=== PATIENT | female | born 1950 | race Caucasian/White ===

== ENCOUNTER 2016-10-08 21:47 | Emergency (ER) | payer BC ==
--- NOTE | 2016-10-08 22:18 | ED ---
Fall HPI - General Chief Complaint: Fall Stated Complaint: fall facial injury Time Seen by Provider: 10/08/16 21:52 Source: patient, EMS Mode of arrival: EMS - History of Present Illness Initial Comments: This patient is a 66-year-old woman who presents to be evaluated after she had a fall. The patient states that she was walking from the bathroom in her home, when she stepped on something and tripped. She states that she was not able to catch herself and she fell striking the left side of her face. She did not have loss of consciousness. She is complaining of headache and pain to the nose area. She has a little bit of pain across the back of the neck. She states that her left arm feels funny but she states that she does not have good sensation there since her stroke. 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 Fall Witnessed: yes, by family Place Fall Occurred: home Loss of Consciousness: none Prolonged Down Time?: no Location: face Location - Extremities: Left: Arm Severity: moderate Quality: dull Context: tripped/slipped Associated Symptoms: headache - Related Data Home Medications Medication Instructions Recorded Confirmed Atorvastatin Calcium [Lipitor] 40 mg PO QAM 09/06/15 10/08/16 Digoxin [Digox] 125 mcg PO DAILY 09/06/15 10/08/16 Morphine Sulfate ER [Ms Contin] 30 mg PO Q12HR 09/06/15 10/08/16 Sertraline HCl 100 mg PO DAILY 09/06/15 10/08/16 carBAMazepine [carBAMazepine XR] 200 mg PO BID 09/06/15 10/08/16 Gabapentin 600 mg PO BID 09/13/15 10/08/16 Warfarin [Coumadin] 5 mg PO HS 01/12/16 10/08/16 Aspirin EC [Ecotrin Low Dose] 81 mg PO DAILY 10/08/16 10/08/16 Calcium Carb-Vit D 500Mg-200Un 1 tab PO DAILY 10/08/16 10/08/16 [Oscal 500+D] Cholecalciferol (Vitamin D3) 2,000 unit PO DAILY 10/08/16 10/08/16 [Vitamin D3] Potassium 99 mg PO DAILY 10/08/16 10/08/16 levETIRAcetam [Keppra] 500 mg PO Q12HR 10/08/16 10/08/16 Previous Rx's Medication Instructions Recorded Bumetanide [BUMEX] 1 mg PO BID@0900,1600 #60 tab 09/20/15 Metoprolol Tartrate [Lopressor] 25 mg PO BID #60 tab 09/20/15 Spironolactone [Aldactone] 25 mg PO DAILY tab 09/20/15 Allergies Allergy/AdvReac Type Severity Reaction Status Date / Time lorazepam [From Ativan] AdvReac GIVES THE Verified 10/08/16 22:12 OPPOSITE EFFECT Review of Systems ROS Statement: Those systems with pertinent positive or pertinent negative responses have been documented in the HPI. ROS Other: All systems not noted in ROS Statement are negative. Constitutional: Denies: fever Eyes: Denies: vision change Respiratory: Denies: cough, dyspnea Cardiovascular: Denies: chest pain, syncope Gastrointestinal: Denies: abdominal pain, vomiting, diarrhea Musculoskeletal: Denies: back pain Skin: Denies: rash Neurological: Reports: headache. Denies: weakness, numbness, paresthesias, confusion Past Medical History Past Medical History: Atrial Fibrillation, Coronary Artery Disease (CAD), CVA/ TIA, Hyperlipidemia, Pneumonia, Seizure Disorder Additional Past Medical History / Comment(s): FALLS, CONCUSSION, STROKE AFFECTED LT SIDE UNABLE TO USE LT ARM AND STATED FOOT DRAGS WHEN SHES TIRED- ONLY ABLE TO WALK SHORT DISTANCES USES PYRAMID CANE.VERTIGO,BRONCHITIS RECENTLY ON ABX FOR IT.STATED HAD A PNE VACCINE LESS THEN 5 YEARS AGO.NOT SURE OF DATE. 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 General Exam Limitations: no limitations General appearance: alert, in no apparent distress Head exam: Present: atraumatic, normocephalic, normal inspection Eye exam: Present: normal appearance. Absent: scleral icterus, conjunctival injection ENT exam: Present: normal oropharynx Neck exam: Present: normal inspection, full ROM Respiratory exam: Present: normal lung sounds bilaterally. Absent: respiratory distress, wheezes, rales, rhonchi, stridor Cardiovascular Exam: Present: regular rate, normal rhythm, normal heart sounds. Absent: systolic murmur, diastolic murmur, rubs, gallop GI/Abdominal exam: Present: soft. Absent: distended, tenderness, guarding, rebound, mass Extremities exam: Present: normal inspection, normal capillary refill. Absent: pedal edema, calf tenderness Back exam: Present: normal inspection. Absent: CVA tenderness (R), CVA tenderness (L) Neurological exam: Present: alert, oriented X3, motor sensory deficit (Patient has left upper extremity and left lower extremity weakness that she states is consistent with her old stroke.) Skin exam: Present: warm, dry, intact, normal color. Absent: rash, cyanosis, diaphoretic, erythema, petechiae, pallor, mottled Course Vital Signs 10/08/16 10/09/16 21:48 03:08 Temperature 98.0 F 97.3 F L Pulse Rate 65 68 Respiratory 16 18 Rate Blood Pressure 163/73 145/78 O2 Sat by Pulse 96 98 Oximetry Medical Decision Making - Medical Decision Making Patient is 66-year-old woman who had a fall with concern about head injury given her Coumadin use. The studies are negative, however she does have the chronic left humerus fracture. - Lab Data Result diagrams: 10/09/16 00:10 10/09/16 00:10 Lab Results 10/09/16 10/09/16 10/09/16 Range/Units 00:10 00:10 00:10 WBC 6.0 (3.8-10.6) k/uL RBC 3.75 L (3.80-5.40) m/uL Hgb 12.7 (11.4-16.0) gm/dL Hct 39.6 (34.0-46.0) % MCV 105.8 H (80.0-100.0) fL MCH 33.8 (25.0-35.0) pg MCHC 32.0 (31.0-37.0) g/dL RDW 14.0 (11.5-15.5) % Plt Count 116 L (150-450) k/uL Neutrophils % 77 % Lymphocytes % 12 % Monocytes % 8 % Eosinophils % 1 % Basophils % 0 % Neutrophils # 4.6 (1.3-7.7) k/uL Lymphocytes # 0.7 L (1.0-4.8) k/uL Monocytes # 0.5 (0-1.0) k/uL Eosinophils # 0.1 (0-0.7) k/uL Basophils # 0.0 (0-0.2) k/uL Macrocytosis Moderate PT 20.6 H (9.0-12.0) sec INR 2.1 H (<1.2) APTT 27.8 (22.0-30.0) sec Sodium 141 (137-145) mmol/L Potassium 3.8 (3.5-5.1) mmol/L Chloride 103 (98-107) mmol/L Carbon Dioxide 29 (22-30) mmol/L Anion Gap 9 mmol/L BUN 13 (7-17) mg/dL Creatinine 0.80 (0.52-1.04) mg/dL Est GFR (MDRD) Af Amer >60 (>60 ml/min/1.73 sqM) Est GFR (MDRD) Non-Af >60 (>60 ml/min/1.73 sqM) Glucose 111 H (74-99) mg/dL Calcium 8.7 (8.4-10.2) mg/dL Troponin I (0.000-0.034) ng/mL Digoxin 0.7 ng/mL 10/09/16 Range/Units 00:10 WBC (3.8-10.6) k/uL RBC (3.80-5.40) m/uL Hgb (11.4-16.0) gm/dL Hct (34.0-46.0) % MCV (80.0-100.0) fL MCH (25.0-35.0) pg MCHC (31.0-37.0) g/dL RDW (11.5-15.5) % Plt Count (150-450) k/uL Neutrophils % % Lymphocytes % % Monocytes % % Eosinophils % % Basophils % % Neutrophils # (1.3-7.7) k/uL Lymphocytes # (1.0-4.8) k/uL Monocytes # (0-1.0) k/uL Eosinophils # (0-0.7) k/uL Basophils # (0-0.2) k/uL Macrocytosis PT (9.0-12.0) sec INR (<1.2) APTT (22.0-30.0) sec Sodium (137-145) mmol/L Potassium (3.5-5.1) mmol/L Chloride (98-107) mmol/L Carbon Dioxide (22-30) mmol/L Anion Gap mmol/L BUN (7-17) mg/dL Creatinine (0.52-1.04) mg/dL Est GFR (MDRD) Af Amer (>60 ml/min/1.73 sqM) Est GFR (MDRD) Non-Af (>60 ml/min/1.73 sqM) Glucose (74-99) mg/dL Calcium (8.4-10.2) mg/dL Troponin I <0.012 (0.000-0.034) ng/mL Digoxin ng/mL - EKG Data -: EKG Interpreted by Ri EKG shows normal: axis (Normal), intervals (Normal), QRS complexes (There is an incomplete right bundle branch block) Rate: normal (Rate approximate 65 bpm) Interpretation: nonspecific ST-T wave changes, other (The underlying rhythm appears to be atrial fibrillation at a rate of approximate 65 bpm.) Disposition Clinical Impression: Fall, Head injury Disposition: HOME SELF-CARE Condition: Fair Instructions: Fall Prevention for Older Adults (ED), Head Injury (ED) Referrals: Melody Arce DO [Primary Care Provider] - 1-2 days
[2016-10-08] MEDS ORDERED: HYDROcodone/APAP 10-325MG 1 EACH TAB PO ONE (23:13)
--- NOTE | 2016-10-08 23:26 | CT ---
EXAM: CT Maxillofacial Without Intravenous Contrast CLINICAL HISTORY: Reason: trauma TECHNIQUE: Axial computed tomography images of the face without intravenous contrast. DLP is 563.00 mGy-cm. This CT exam was performed using one or more of the following dose reduction techniques: automated exposure control, adjustment of the mA and/or kV according to patient size, and/or use of iterative reconstruction technique. COMPARISON: No relevant prior studies available. FINDINGS: Bones/joints: Subcutaneous bruising seen over the left zygoma. No acute fracture. Soft tissues: Unremarkable. Orbits: Unremarkable. Sinuses: Unremarkable. No air-fluid levels. IMPRESSION: No evidence of fracture.
--- NOTE | 2016-10-08 23:32 | CT ---
EXAM: CT Head Without Intravenous Contrast CLINICAL HISTORY: Reason: trauma TECHNIQUE: Axial computed tomography images of the head/brain without intravenous contrast. DLP is 36.00 mGy-cm. This CT exam was performed using one or more of the following dose reduction techniques: automated exposure control, adjustment of the mA and/or kV according to patient size, and/or use of iterative reconstruction technique. COMPARISON: No relevant prior studies available. FINDINGS: Brain: Focal hypoattenuation in the right basal ganglia relating to old lacunar infarct. No hemorrhage. No significant white matter disease. No edema. Ventricles: Unremarkable. No ventriculomegaly. Bones/joints: Unremarkable. No acute fracture. Soft tissues: Unremarkable. Sinuses: Unremarkable as visualized. No acute sinusitis. Mastoid air cells: Unremarkable as visualized. No mastoid effusion. Other findings: Generalized atrophy. IMPRESSION: No acute findings. EXAM: CT Cervical Spine Without Intravenous Contrast CLINICAL HISTORY: Reason: trauma TECHNIQUE: Axial computed tomography images of the cervical spine without intravenous contrast. DLP is 355.60 mGy-cm. This CT exam was performed using one or more of the following dose reduction techniques: automated exposure control, adjustment of the mA and/or kV according to patient size, and/or use of iterative reconstruction technique. COMPARISON: No relevant prior studies available. FINDINGS: Vertebrae: Unremarkable. No acute fracture. Discs/spinal canal/neural foramina: Degenerative disc height loss with posterior disc spur complex at C4-5, C5-6, and C6-7 causing bilateral neural foraminal narrowing at these levels. Endplate degenerative cystic change noted in the upper endplate of C6 and lower endplate of C5. Posterior disc protrusion also seen at C3-4. Soft tissues: Unremarkable. Lung apices: Unremarkable as visualized. IMPRESSION: No acute findings. Multilevel spondylotic changes noted as above.
--- NOTE | 2016-10-08 23:34 | XR ---
EXAM: XR Chest, 1 View CLINICAL HISTORY: Reason: trauma TECHNIQUE: Frontal view of the chest. COMPARISON: 09/19/15 FINDINGS: Lungs: Unremarkable. No consolidation. Pleural space: Unremarkable. No pneumothorax. Heart: Moderate cardiomegaly. Mediastinum: Unremarkable. Bones/joints: Thoracotomy changes noted including right sixth rib resection. IMPRESSION: No acute findings.
--- NOTE | 2016-10-08 23:41 | XR ---
EXAM: XR Left Humerus, 2 or More Views CLINICAL HISTORY: Reason: trauma TECHNIQUE: Frontal and lateral views of the left humerus. COMPARISON: No relevant prior studies available. FINDINGS: Bones/joints: Limited single frontal view. Fracture deformity of the proximal humerus which appears chronic with healing changes. No dislocation. Nondisplaced fracture of the distal left clavicle. Soft tissues: Unremarkable. IMPRESSION: 1. Limited single frontal view. Fracture deformity of the proximal left humerus with chronic healing changes. Correlate with history. 2. Nondisplaced fracture of the distal left clavicle.
--- NOTE | 2016-10-08 23:51 | XR ---
EXAM: XR Left Forearm, 2 Views CLINICAL HISTORY: Reason: Pain TECHNIQUE: Frontal and lateral views of the left forearm. COMPARISON: No relevant prior studies available. FINDINGS: Bones/joints: Diffuse osteopenia noted. Small 6 mm calcification noted in the posterior elbow soft tissues. No acute fracture. No dislocation. Soft tissues: See above. IMPRESSION: No acute findings. Diffuse osteopenia seen in the left forearm, wrist, and hand which may relate to disuse osteopenia. Correlate clinically.
[2016-10-09 00:34] LABS: Basophils % (A) 0 %; CH 32.9; CHCM 31.3; Eosinophils # (A) 0.1 k/uL (0-0.7); Eosinophils % (A) 1 %; HCT 39.6 % (34.0-46.0); HGB 12.7 gm/dL (11.4-16.0); Luc # (Auto) 0.07; Luc % (Auto) 1; Lymphocytes # (A) 0.7 k/uL (1.0-4.8); Lymphocytes % (A) 12 %; MCH 33.8 pg (25.0-35.0); MCV 105.8 fL (80.0-100.0); Macrocytosis Moderate; Mean Platelet Volume 7.9; Monocytes # (A) 0.5 k/uL (0-1.0); Monocytes % (A) 8 %; Neutrophils # (A) 4.6 k/uL (1.3-7.7); Neutrophils % (A) 77 %; RBC 3.75 m/uL (3.80-5.40); WBC (Perox) 6.19
[2016-10-09 00:45] LABS: INR 2.1 (<1.2); Partial Thromboplastin Time 27.8 sec (22.0-30.0); Prothrombin Time 20.6 sec (9.0-12.0)
[2016-10-09 00:50] LABS: Anion Gap 9 mmol/L; Blood Urea Nitrogen 13 mg/dL (7-17); Calcium 8.7 mg/dL (8.4-10.2); Carbon Dioxide 29 mmol/L (22-30); Chloride 103 mmol/L (98-107); Digoxin 0.7 ng/mL; Glucose 111 mg/dL (74-99); Non-African American GFR(MDRD) >60 (>60 ml/min/1.73 sqM); Potassium 3.8 mmol/L (3.5-5.1); Sodium 141 mmol/L (137-145)
[2016-10-09 03:09] VITALS: BP 145/78; PULSE 68; RESP 18; TEMP 97.3
== END 2016-10-09 03:10 | disposition home or self-care (01) ==
LOC: EC 21:47
DX: S09.90XA Unspecified injury of head, initial encounter (principal); M54.2 Cervicalgia; R29.898 Other symptoms and signs involving the musculoskeletal system; F32.9 Major depressive disorder, single episode, unspecified; I25.10 Atherosclerotic heart disease of native coronary artery without angina pectoris; E78.5 Hyperlipidemia, unspecified; G40.909 Epilepsy, unspecified, not intractable, without status epilepticus; Z86.73 Personal history of transient ischemic attack (TIA), and cerebral infarction without residual deficits; Z79.01 Long term (current) use of anticoagulants; Z79.891 Long term (current) use of opiate analgesic; Z79.82 Long term (current) use of aspirin; Z88.8 Allergy status to other drugs, medicaments and biological substances; W01.10XA Fall on same level from slipping, tripping and stumbling with subsequent striking against unspecified object, initial encounter; Y92.002 Bathroom of unspecified non-institutional (private) residence as the place of occurrence of the external cause
CPT/HCPCS: 36415; 70450; 70486; 71010; 72125; 80048; 80162; 84484; 85025; 85610; 85730; 93005; 99285

== ENCOUNTER 2016-11-23 22:26 | Inpatient (IN) | payer BC ==
--- NOTE | 2016-11-23 22:33 | ED ---
General Adult HPI - General Chief complaint: GI Bleed Stated complaint: GI Bleed Time Seen by Provider: 11/23/16 22:28 Source: family, EMS, RN notes reviewed, old records reviewed Mode of arrival: EMS Limitations: no limitations - History of Present Illness Initial comments: This is a 66-year-old female to the ER for evaluation of blood in stool. Bright red blood during bowel movements. Positive red blood. Patient does have A. fib and is on Coumadin. Patient denies lightheadedness dizziness or weakness. Does have mild abdominal pain but not significant. No nausea vomiting. No prior history of GI bleed. Patient unsure of colonoscopy history. Patient denies feelings of lightheadedness dizziness or weakness, does not first pass out. - Related Data Home Medications Medication Instructions Recorded Confirmed Atorvastatin Calcium [Lipitor] 40 mg PO QAM 09/06/15 11/23/16 Digoxin [Digox] 125 mcg PO DAILY 09/06/15 11/23/16 Morphine Sulfate ER [Ms Contin] 30 mg PO Q12HR 09/06/15 11/23/16 Sertraline HCl 100 mg PO DAILY 09/06/15 11/23/16 carBAMazepine [carBAMazepine XR] 200 mg PO BID 09/06/15 11/23/16 Gabapentin 600 mg PO BID 09/13/15 11/23/16 Warfarin [Coumadin] 5 mg PO HS 01/12/16 11/23/16 Bumetanide [BUMEX] 1 mg PO BID 11/23/16 11/23/16 Furosemide [Lasix] 40 mg PO BID 11/23/16 11/23/16 HYDROcodone/APAP 7.5-325MG [Joseph 1 - 2 tab PO Q6HR PRN 11/23/16 11/23/16 7.5-325] Spironolactone [Aldactone] 25 mg PO BID 11/23/16 11/23/16 levETIRAcetam 1,000 mg PO BID 11/23/16 11/23/16 Previous Rx's Medication Instructions Recorded Metoprolol Tartrate [Lopressor] 25 mg PO BID #60 tab 09/20/15 Allergies Allergy/AdvReac Type Severity Reaction Status Date / Time codeine Allergy Chest Pain Verified 11/23/16 23:08 lorazepam [From Ativan] AdvReac GIVES THE Verified 11/23/16 23:08 OPPOSITE EFFECT Review of Systems ROS Statement: Those systems with pertinent positive or pertinent negative responses have been documented in the HPI. ROS Other: All systems not noted in ROS Statement are negative. Past Medical History Past Medical History: Atrial Fibrillation, Coronary Artery Disease (CAD), CVA/ TIA, Hyperlipidemia, Pneumonia, Seizure Disorder Additional Past Medical History / Comment(s): FALLS, CONCUSSION, STROKE AFFECTED LT SIDE UNABLE TO USE LT ARM AND STATED FOOT DRAGS WHEN SHES TIRED- ONLY ABLE TO WALK SHORT DISTANCES USES PYRAMID CANE.VERTIGO,BRONCHITIS RECENTLY ON ABX FOR IT.STATED HAD A PNE VACCINE LESS THEN 5 YEARS AGO.NOT SURE OF DATE. 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 MANAGER PE REPLACMENT" Past Anesthesia/Blood Transfusion Reactions: No Reported Reaction Past Psychological History: Depression Smoking Status: Never smoker Past Alcohol Use History: None Reported Past Drug Use History: None Reported - Past Family History Father Family Medical History: Cancer Additional Family Medical History / Comment(s): BRAIN AND LUNG CANCER Mother Family Medical History: Unable to Obtain Additional Family Medical History / Comment(s): PT COULD'NT REMEMEBR WHAT MOM FROM AND BECAME TEARY EYED WHEN THINKING ABOUT IT. General Exam Limitations: no limitations General appearance: alert, in no apparent distress Head exam: Present: atraumatic, normocephalic, normal inspection Eye exam: Present: normal appearance, PERRL, EOMI. Absent: scleral icterus, conjunctival injection, periorbital swelling ENT exam: Present: normal exam, mucous membranes moist Neck exam: Present: normal inspection. Absent: tenderness, meningismus, lymphadenopathy Respiratory exam: Present: normal lung sounds bilaterally. Absent: respiratory distress, wheezes, rales, rhonchi, stridor Cardiovascular Exam: Present: regular rate, normal rhythm, normal heart sounds. Absent: systolic murmur, diastolic murmur, rubs, gallop, clicks GI/Abdominal exam: Present: soft, normal bowel sounds. Absent: distended, tenderness, guarding, rebound, rigid Rectal exam: Present: heme (+) stool, bloody stool Extremities exam: Present: normal inspection, full ROM, normal capillary refill. Absent: tenderness, pedal edema, joint swelling, calf tenderness Back exam: Present: normal inspection Neurological exam: Present: alert, oriented X3, CN II-XII intact Psychiatric exam: Present: normal affect, normal mood Skin exam: Present: warm, dry, intact, normal color. Absent: rash Course Vital Signs 11/23/16 11/23/16 22:27 22:59 Temperature 98.8 F Pulse Rate 61 75 Respiratory 17 20 Rate Blood Pressure 170/86 O2 Sat by Pulse 94 L Oximetry - Reevaluation(s) Reevaluation #1: 11/23/16 23:56 Patient is with positive bloody bowel movement here in emergency room mostly blood 11/23/16 23:56 Right red blood on toilet paper Medical Decision Making - Medical Decision Making 66 female the ER for evaluation regarding positive Breitbart per rectum. Patient is on Coumadin, low-dose vitamin K, FFP, monitor urine Sarah monitoring of hemoglobin and GI evaluation. - Lab Data Result diagrams: 11/23/16 22:40 11/23/16 22:40 Lab Results 11/23/16 11/23/16 11/23/16 Range/Units 22:40 22:40 22:40 WBC 4.3 (3.8-10.6) k/uL RBC 3.72 L (3.80-5.40) m/uL Hgb 12.3 (11.4-16.0) gm/dL Hct 38.3 (34.0-46.0) % MCV 102.9 H (80.0-100.0) fL MCH 33.0 (25.0-35.0) pg MCHC 32.1 (31.0-37.0) g/dL RDW 13.7 (11.5-15.5) % Plt Count 112 L (150-450) k/uL Neutrophils % 59 % Lymphocytes % 24 % Monocytes % 11 % Eosinophils % 4 % Basophils % 0 % Neutrophils # 2.5 (1.3-7.7) k/uL Lymphocytes # 1.0 (1.0-4.8) k/uL Monocytes # 0.5 (0-1.0) k/uL Eosinophils # 0.2 (0-0.7) k/uL Basophils # 0.0 (0-0.2) k/uL Macrocytosis Slight PT (9.0-12.0) sec INR (<1.2) APTT (22.0-30.0) sec Sodium 138 (137-145) mmol/L Potassium 4.2 (3.5-5.1) mmol/L Chloride 102 (98-107) mmol/L Carbon Dioxide 27 (22-30) mmol/L Anion Gap 9 mmol/L BUN 17 (7-17) mg/dL Creatinine 0.70 (0.52-1.04) mg/dL Est GFR (MDRD) Af Amer >60 (>60 ml/min/1.73 sqM) Est GFR (MDRD) Non-Af >60 (>60 ml/min/1.73 sqM) Glucose 109 H (74-99) mg/dL Calcium 8.9 (8.4-10.2) mg/dL Magnesium 1.9 (1.6-2.3) mg/dL Total Bilirubin 0.6 (0.2-1.3) mg/dL AST 28 (14-36) U/L ALT 29 (9-52) U/L Alkaline Phosphatase 108 (38-126) U/L Total Creatine Kinase 37 (30-135) U/L CK-MB (CK-2) 0.3 (0.0-2.4) ng/mL CK-MB (CK-2) Rel Index 0.8 Troponin I 0.012 (0.000-0.034) ng/mL Total Protein 7.2 (6.3-8.2) g/dL Albumin 3.8 (3.5-5.0) g/dL Lipase 119 (23-300) U/L Blood Type Blood Type Recheck Antibody Screen Spec Expiration Date 11/23/16 11/23/16 Range/Units 22:40 22:40 WBC (3.8-10.6) k/uL RBC (3.80-5.40) m/uL Hgb (11.4-16.0) gm/dL Hct (34.0-46.0) % MCV (80.0-100.0) fL MCH (25.0-35.0) pg MCHC (31.0-37.0) g/dL RDW (11.5-15.5) % Plt Count (150-450) k/uL Neutrophils % % Lymphocytes % % Monocytes % % Eosinophils % % Basophils % % Neutrophils # (1.3-7.7) k/uL Lymphocytes # (1.0-4.8) k/uL Monocytes # (0-1.0) k/uL Eosinophils # (0-0.7) k/uL Basophils # (0-0.2) k/uL Macrocytosis PT 20.9 H (9.0-12.0) sec INR 2.2 H (<1.2) APTT 28.6 (22.0-30.0) sec Sodium (137-145) mmol/L Potassium (3.5-5.1) mmol/L Chloride (98-107) mmol/L Carbon Dioxide (22-30) mmol/L Anion Gap mmol/L BUN (7-17) mg/dL Creatinine (0.52-1.04) mg/dL Est GFR (MDRD) Af Amer (>60 ml/min/1.73 sqM) Est GFR (MDRD) Non-Af (>60 ml/min/1.73 sqM) Glucose (74-99) mg/dL Calcium (8.4-10.2) mg/dL Magnesium (1.6-2.3) mg/dL Total Bilirubin (0.2-1.3) mg/dL AST (14-36) U/L ALT (9-52) U/L Alkaline Phosphatase (38-126) U/L Total Creatine Kinase (30-135) U/L CK-MB (CK-2) (0.0-2.4) ng/mL CK-MB (CK-2) Rel Index Troponin I (0.000-0.034) ng/mL Total Protein (6.3-8.2) g/dL Albumin (3.5-5.0) g/dL Lipase (23-300) U/L Blood Type A Positive Blood Type Recheck CABO Indicated Antibody Screen NEGATIVE Spec Expiration Date 11/26/20162339 Disposition Clinical Impression: Paroxysmal a-fib, Coagulopathy, Coumadin toxicity, GIB (gastrointestinal bleeding) Disposition: ADMITTED IP TO THIS [facility] Condition: Fair Instructions: Gastrointestinal Bleeding (ED) Referrals: Melody Arce DO [Primary Care Provider] - 1-2 days
[2016-11-23] MEDS ORDERED: PANTOPRAZOLE 40 MG/10 ML VIAL IVP STA (22:41)
[2016-11-23] MEDS ORDERED: SODIUM CHLORIDE 0.9% 1,000 ML IV STA (22:41)
[2016-11-23 22:55] LABS: Basophils % (A) 0 %; CHCM 32.2; Eosinophils # (A) 0.2 k/uL (0-0.7); Eosinophils % (A) 4 %; HCT 38.3 % (34.0-46.0); HDW 2.11; HGB 12.3 gm/dL (11.4-16.0); Luc # (Auto) 0.08; Luc % (Auto) 2; Lymphocytes % (A) 24 %; MCHC 32.1 g/dL (31.0-37.0); MCV 102.9 fL (80.0-100.0); Macrocytosis Slight; Mean Platelet Volume 8.4; Monocytes # (A) 0.5 k/uL (0-1.0); Monocytes % (A) 11 %; Neutrophils # (A) 2.5 k/uL (1.3-7.7); Neutrophils % (A) 59 %; RBC 3.72 m/uL (3.80-5.40); RDW 13.7 % (11.5-15.5); WBC 4.3 k/uL (3.8-10.6); WBC (Perox) 4.51
[2016-11-23 23:09] LABS: INR 2.2 (<1.2); Partial Thromboplastin Time 28.6 sec (22.0-30.0); Prothrombin Time 20.9 sec (9.0-12.0)
[2016-11-23 23:13] LABS: ALT 29 U/L (9-52); AST 28 U/L (14-36); Alkaline Phosphatase 108 U/L (38-126); Anion Gap 9 mmol/L; Blood Urea Nitrogen 17 mg/dL (7-17); Calcium 8.9 mg/dL (8.4-10.2); Carbon Dioxide 27 mmol/L (22-30); Chloride 102 mmol/L (98-107); Glucose 109 mg/dL (74-99); Magnesium 1.9 mg/dL (1.6-2.3); Non-African American GFR(MDRD) >60 (>60 ml/min/1.73 sqM); Potassium 4.2 mmol/L (3.5-5.1); Sodium 138 mmol/L (137-145); Total Bilirubin 0.6 mg/dL (0.2-1.3); Total Protein 7.2 g/dL (6.3-8.2)
[2016-11-23 23:39] LABS: Creatine Kinase MB 0.3 ng/mL (0.0-2.4); Troponin I 0.012 ng/mL (0.000-0.034)
[2016-11-23] MEDS ORDERED: HUMAN PROTHROMBIN COMPLX IV ONE (23:44)
[2016-11-23] MEDS ORDERED: PHYTONADIONE 5 MG in SODIUM CHLORIDE 0.9% 50 ML IVPB STA (23:53)
[2016-11-23] MEDS ORDERED: MORPHINE SULFATE 2 MG/ML SYRINGE IVP STA (23:58)
[2016-11-23] MEDS ORDERED: MORPHINE SULFATE 2 MG/ML SYRINGE IVP PRN (23:58)
[2016-11-24 01:30] VITALS: BMI 43.0
[2016-11-24] MEDS ORDERED: NALOXONE 0.4 MG/ML 1 ML VIAL IV PRN (01:40)
[2016-11-24] MEDS ORDERED: ONDANSETRON 4 MG/2 ML VIAL IVP PRN (01:40)
--- NOTE | 2016-11-24 02:46 | P.HPIM ---
History of Present Illness H&P Date: 11/24/16 Chief Complaint: Blood in the stools 66-year-old female with multiple medical problems as detailed below, presents to emergency department because of 2 episodes of bleeding, the first occured with the bowel movement but the second occured without a bowel movement. She had some cramps in the lower abdomen when that happened but now that has resolved. No recent illness, no fevers or chills. She never had these type of episodes in the past. No dizziness, no chest pain or shortness of breath. No nausea or vomiting. Of note patient has a mechanical mitral valve replacement and she chronically takes Coumadin, which she has been taking for the past 20 years without any bleeding. She denies any recent changes in her diet. In the emergency department she was found to be hemodynamically stable, hemoglobin was stable and she was admitted to the hospital for further evaluation and management. She did have a colonoscopy in the past but that was long time ago. Review of Systems 12 point review of system performed, negative except for HPI Past Medical History Past Medical History: Atrial Fibrillation, Coronary Artery Disease (CAD), CVA/ TIA, Hyperlipidemia, Pneumonia, Seizure Disorder Additional Past Medical History / Comment(s): FALLS, CONCUSSION, STROKE AFFECTED LT SIDE UNABLE TO USE LT ARM AND STATED FOOT DRAGS WHEN SHES TIRED- ONLY ABLE TO WALK SHORT DISTANCES USES PYRAMID CANE.VERTIGO,BRONCHITIS RECENTLY ON ABX FOR IT.STATED HAD A PNE VACCINE LESS THEN 5 YEARS AGO.NOT SURE OF DATE. 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" Past Anesthesia/Blood Transfusion Reactions: No Reported Reaction Past Psychological History: Depression Smoking Status: Never smoker Past Alcohol Use History: None Reported Past Drug Use History: None Reported - Past Family History Father Family Medical History: Cancer Additional Family Medical History / Comment(s): BRAIN AND LUNG CANCER Mother Family Medical History: Unable to Obtain Additional Family Medical History / Comment(s): PT COULDN'T REMEMBER WHAT MOM FROM Medications and Allergies Home Medications Medication Instructions Recorded Confirmed Type Atorvastatin Calcium [Lipitor] 40 mg PO QAM 09/06/15 11/23/16 History Digoxin [Digox] 125 mcg PO DAILY 09/06/15 11/23/16 History Morphine Sulfate ER [Ms Contin] 30 mg PO Q12HR 09/06/15 11/23/16 History Sertraline HCl 100 mg PO DAILY 09/06/15 11/23/16 History carBAMazepine [carBAMazepine XR] 200 mg PO BID 09/06/15 11/23/16 History Gabapentin 600 mg PO BID 09/13/15 11/23/16 History Metoprolol Tartrate [Lopressor] 25 mg PO BID #60 tab 09/20/15 11/23/16 Rx Warfarin [Coumadin] 5 mg PO HS 01/12/16 11/23/16 History Bumetanide [BUMEX] 1 mg PO DAILY 11/23/16 11/24/16 History Furosemide [Lasix] 40 mg PO BID 11/23/16 11/24/16 History HYDROcodone/APAP 7.5-325MG [[place] 1 - 2 tab PO Q6HR PRN 11/23/16 11/23/16 History 7.5-325] Spironolactone [Aldactone] 25 mg PO BID 11/23/16 11/23/16 History levETIRAcetam 1,000 mg PO BID 11/23/16 11/23/16 History Allergies Allergy/AdvReac Type Severity Reaction Status Date / Time codeine Allergy Chest Pain Verified 11/23/16 23:08 lorazepam [From Ativan] AdvReac GIVES THE Verified 11/23/16 23:08 OPPOSITE EFFECT Physical Exam Vitals: Vital Signs Temp Pulse Pulse Resp BP BP Pulse Ox 11/24/16 01:12 97.5 F L 74 18 127/61 97 11/24/16 00:16 69 16 146/65 95 11/23/16 22:59 75 20 11/23/16 22:27 98.8 F 61 17 170/86 94 L Intake and Output 11/23/16 11/23/16 11/24/16 14:59 22:59 06:59 Intake Total 200 Balance 200 Intake: Amount of Fluid Infused ( 200 ml) Other: Weight 113.398 kg 124.7 kg Patient Weight 11/24/16 06:59 Weight 124.7 kg Constitutional: No acute distress, conversant, pleasant Eyes:Anicteric sclerae, moist conjunctiva, no lid-lag, PERRLA, ENMT: Oropharynx clear, no erythema, exudates Neck: Supple, FROM, no masses, or JVD, No carotid bruits, No thyromegaly Lungs: Clear to auscultation, Clear to percussion, Normal respiratory effort, no accessory muscle use Cardiovascular: Heart regular in rate and rhythm, mechanical heart sounds, No murmurs, gallops, or rubs, No peripheral edema Abdominal: Soft, Nontender, no guarding, rebound or rigidity, Normoactive bowel sounds, No hepatomegaly, No splenomegaly, No palpable mass Skin: Normal temperature, tone, texture, turgor, no induration, No subcutaneous nodules, No rash, lesions, No ulcers Extremities: No digital cyanosis, No clubbing, Pedal pulses intact and symmetrical, Radial pulses intact and symmetrical, No calf tenderness Psychiatric: Alert and oriented to person, place and time, appropriate affect, intact judgement Neuro: Obvious left-sided weakness, Cranial nerves II-XII grossly intact, Results CBC & Chem 7: 11/23/16 22:40 11/23/16 22:40 Labs: Abnormal Lab Results - Last 24 Hours (Table) 11/23/16 11/23/16 11/23/16 Range/Units 22:40 22:40 22:40 RBC 3.72 L (3.80-5.40) m/uL MCV 102.9 H (80.0-100.0) fL Plt Count 112 L (150-450) k/uL PT 20.9 H (9.0-12.0) sec INR 2.2 H (<1.2) Glucose 109 H (74-99) mg/dL Thrombosis Risk Factor Assmnt - Choose All That Apply Each Factor Represents 1 point: Obesity (BMI >25), Swollen legs (current) Each Risk Factor Represents 2 Points: Age 61-74 years Thrombosis Risk Factor Assessment Total Risk Factor Score: 4 Thrombosis Risk Factor Assessment Level: Moderate Risk Assessment and Plan Plan: #1 acute lower GI bleeding: Consult gastroenterology Cycle H&H Hold Coumadin Likely will need a colonoscopy in the morning Nothing by mouth #2 history of mechanical mitral valve replacement, aortic valve repair She needs to be off the Coumadin for today until further evaluation by GI, will need to resume the Coumadin [place] when stable #3 hypertension, history of strokes, seizure disorder All stable Continue home medications #4 DVT prophylaxis Early mobilization and SCDs
[2016-11-24] MEDS: SODIUM CHLORIDE 0.9% 1,000 ML IV SCH ×2 (03:58→14:56)
[2016-11-24 06:52] LABS: Basophils % (A) 0 %; CH 32.9; CHCM 31.7; Eosinophils # (A) 0.1 k/uL (0-0.7); Eosinophils % (A) 2 %; HCT 36.5 % (34.0-46.0); HDW 2.06; HGB 11.7 gm/dL (11.4-16.0); Luc # (Auto) 0.07; Luc % (Auto) 2; Lymphocytes # (A) 0.8 k/uL (1.0-4.8); Lymphocytes % (A) 20 %; MCH 33.4 pg (25.0-35.0); MCHC 32.1 g/dL (31.0-37.0); MCV 104.2 fL (80.0-100.0); Macrocytosis Slight; Mean Platelet Volume 8.2; Monocytes # (A) 0.4 k/uL (0-1.0); Monocytes % (A) 9 %; Neutrophils # (A) 2.8 k/uL (1.3-7.7); Neutrophils % (A) 68 %; WBC 4.2 k/uL (3.8-10.6); WBC (Perox) 3.72
[2016-11-24 07:05] LABS: ALT 30 U/L (9-52); AST 28 U/L (14-36); Alkaline Phosphatase 103 U/L (38-126); Anion Gap 8 mmol/L; Blood Urea Nitrogen 16 mg/dL (7-17); Calcium 8.6 mg/dL (8.4-10.2); Carbon Dioxide 28 mmol/L (22-30); Chloride 103 mmol/L (98-107); Glucose 103 mg/dL (74-99); Magnesium 1.8 mg/dL (1.6-2.3); Non-African American GFR(MDRD) >60 (>60 ml/min/1.73 sqM); Potassium 4.7 mmol/L (3.5-5.1); Sodium 139 mmol/L (137-145); Total Bilirubin 0.7 mg/dL (0.2-1.3); Total Protein 6.4 g/dL (6.3-8.2)
[2016-11-24] MEDS: ATORVASTATIN 40 MG TAB PO SCH (08:09)
[2016-11-24] MEDS: MORPHINE SULFATE ER 30 MG TABLET PO SCH ×2 (08:09→20:45)
[2016-11-24] MEDS: levETIRAcetam 500 MG TAB PO SCH ×2 (08:10→20:45)
[2016-11-24] MEDS: SERTRALINE 100 MG TAB PO SCH (08:10)
[2016-11-24] MEDS: DIGOXIN 125 MCG TAB PO SCH (08:10)
[2016-11-24] MEDS: METOPROLOL TARTRATE 25 MG TAB PO SCH ×2 (08:10→20:46)
[2016-11-24] MEDS: GABAPENTIN 300 MG CAP PO SCH ×2 (08:10→20:45)
[2016-11-24 08:12] LABS: INR 1.6 (<1.2); Prothrombin Time 15.7 sec (9.0-12.0)
--- NOTE | 2016-11-24 09:12 | P.PN ---
Subjective Progress Note Date: 11/24/16 Principal diagnosis: GI bleed Patient is a 66-year-old female with a history of atrial fibrillation , coronary artery disease, prior stroke with residual left-sided deficits, and mechanical mitral valve who presented with bright red blood per rectum. In the emergency department she underwent an extensive evaluation. Her initial vital signs showed slight hypertension with blood pressure of 170/86. Initial laboratory analysis was essentially unremarkable other than an INR of 2.2 consistent with her chronic Coumadin use. She was given a dose of 5 mg of IV vitamin K in the ER. She was also given an unit of FFP. She was subsequently admitted to the selective care unit for further monitoring and care. GI was consult it. They planned for probable colonoscopy in a.m. on 11/25. Patient seen and examined at bedside. She states that her bleeding in her rectum has decreased significantly since admission. She denies any chest pain, shortness of breath, or palpitations. She states that her last colonoscopy was greater than 10 years ago. She has a family doctor that she follows with an [facility]. Objective - Vital Signs Vital signs: Vital Signs Temp 97 F L 11/24/16 05:49 Pulse 60 11/24/16 05:49 Resp 16 11/24/16 05:49 BP 119/61 11/24/16 05:49 Pulse Ox 93 L 11/24/16 05:49 Intake & Output 11/23/16 11/24/16 11/24/16 18:59 06:59 18:59 Intake Total 1686 Output Total 700 Balance 986 Weight 124.7 kg Intake: IV 850 Phytonadione 5 mg In 50 Sodium Chloride 0.9% 50 ml @ 100 mls/hr IVPB ONCE STA Rx#:[id number] Sodium Chloride 0.9% 1, 800 000 ml @ 100 mls/hr IV . Q10H STA Rx#:[id number] Amount of Fluid Infused ( 200 ml) Blood Product 636 Ffp 24 Cpd Unit 318 [id number] Output: Urine 700 Other: Voiding Method Bedside Commode # Voids 2 - Exam General: non toxic, no distress, appears at stated age, obese Derm: no rashes, no lesions Head: atraumatic, normocephalic, symmetric Eyes: EOMI, no lid lag, anicteric sclera ENT: no post nasal drip, no thrush Mouth: no lip lesion, mucus membranes moist Cardiovascular: S1S2 reg, with systolic ejection murmur, positive posterior tibial pulse bilateral, Lungs: CTA bilateral, no rhonchi, no rales , no accessory muscle use Abdominal: soft, nontender to palpation, no guarding, no appreciable organomegaly Ext: no gross muscle atrophy, no edema, no contractures Neuro: CN II-XI grossly intact, no focal neuro deficits Psych: Alert, oriented, appropriate affect - Labs CBC & Chem 7: 11/24/16 05:27 11/24/16 05:27 Labs: Abnormal Lab Results - Last 24 Hours (Table) 11/23/16 11/23/16 11/23/16 Range/Units 22:40 22:40 22:40 RBC 3.72 L (3.80-5.40) m/uL MCV 102.9 H (80.0-100.0) fL Plt Count 112 L (150-450) k/uL Lymphocytes # (1.0-4.8) k/uL PT 20.9 H (9.0-12.0) sec INR 2.2 H (<1.2) Glucose 109 H (74-99) mg/dL Albumin (3.5-5.0) g/dL 11/24/16 11/24/16 11/24/16 Range/Units 05:27 05:27 05:27 RBC 3.50 L (3.80-5.40) m/uL MCV 104.2 H (80.0-100.0) fL Plt Count 117 L (150-450) k/uL Lymphocytes # 0.8 L (1.0-4.8) k/uL PT 15.7 H (9.0-12.0) sec INR 1.6 H (<1.2) Glucose 103 H (74-99) mg/dL Albumin 3.4 L (3.5-5.0) g/dL Assessment and Plan Plan: Probable lower GI bleed -GI recommendations -Has been placed on a clear liquid diet by GI -Follow serial hemoglobins -Probable colonoscopy in a.m. Subtherapeutic Coumadin coagulopathy with mitral valve -Closely monitor patient with history of mechanical mitral valve and subtherapeutic INR -She will be very hard to read To therapeutic Coumadin level which would be greater than 2.5 that she was Re: Subtherapeutic on admission and received 5 mg of IV vitamin K, FFP, and [facility] in the emergency department. -Cardiology has been consult it to assist with appropriate monitoring -Monitor INR daily Hypertension -Continue with Lopressor -Follow blood pressures Atrial fibrillation -Telemetry monitoring -Continue with metoprolol and digoxin CVA with residual left-sided deficits -Fall precautions Chronic conditions: Seizure disorder Dyslipidemia DVT prophylaxis: SCDs Discussed with: Patient, cardiology nurse practitioner Anticipated discharge: 72-[address]: home A total of 35 minutes was spent on the care of this complex patient more than 50 % of the time was spent in counseling and care coordination.
--- NOTE | 2016-11-24 09:47 | P.CONS ---
History of Present Illness - Reason for Consult Consult date: 11/24/16 Gi bleed Requesting physician: Charley Paige - History of Present Illness 66-year-old lady with a history of mechanical mitral valve with Coumadin monitoring, atrial fibrillation, hypertension, hyperlipidemia, prior CVA left sided weakness presents with acute rectal bleeding 1 day. Patient stated yesterday she developed lateral lower abdominal cramping followed by moderate- sized bloody red burgundy colored bowel movement. 2 more bloody bowel movements shortly thereafter. Presently feels better with improvement in her abdominal pain. No history GI bleed. Last colonoscopy was about 10 years ago. INR 2.2 presently 1.6. Hemoglobin 12.3 presently 11.7. Platelet 117. BUN 16. Creatinine 0.7. Denies hematemesis or melena. No weight loss. Denies fever or chills. No abdominal imaging to review. Review of Systems Constitutional: Denies fever, chills, sweats, weight gain, or loss. HEENT: Negative for migraines, blurred vision or loss, earaches, drainage, tinnitus, oral mucosal lesions, dysphagia, or odynophagia. CARDIAC: Hypertension. Hyperlipidemia. Atrial fibrillation. Mechanical mitral valve. Negative for chest pain, arrhythmias, or palpitation. RESPIRATORY: Negative for shortness of breath, hemoptysis, cough, or sputum production. GI: See HPI for pertinent findings. : Negative for hematuria, urgency, frequency, polyuria, or dysuria. GYNc: Denies possibility of . Negative vaginal discharge. MUSCULOSKELETAL: Negative for muscle aches, swelling, arthritis, and arthralgias. NEUROLOGIC: She disorder. History of stroke with left-sided weakness. ENDOCRINE: Negative for thyroid problems. SKIN: Negative for rash or itching. PSYCHIATRIC: Negative history for depression and anxiety All systems: negative (See HPI) Past Medical History Past Medical History: Atrial Fibrillation, Coronary Artery Disease (CAD), CVA/ TIA, Hyperlipidemia, Pneumonia, Seizure Disorder Additional Past Medical History / Comment(s): FALLS, CONCUSSION, STROKE AFFECTED LT SIDE UNABLE TO USE LT ARM AND STATED FOOT DRAGS WHEN SHES TIRED- ONLY ABLE TO WALK SHORT DISTANCES USES PYRAMID CANE.VERTIGO,BRONCHITIS RECENTLY ON ABX FOR IT.STATED HAD A PNE VACCINE LESS THEN 5 YEARS AGO.NOT SURE OF DATE. 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" Past Anesthesia/Blood Transfusion Reactions: No Reported Reaction Past Psychological History: Depression Smoking Status: Never smoker Past Alcohol Use History: None Reported Past Drug Use History: None Reported - Past Family History Father Family Medical History: Cancer Additional Family Medical History / Comment(s): BRAIN AND LUNG CANCER Mother Family Medical History: Unable to Obtain Additional Family Medical History / Comment(s): PT COULDN'T REMEMBER WHAT MOM FROM Medications and Allergies Home Medications Medication Instructions Recorded Confirmed Type Atorvastatin Calcium [Lipitor] 40 mg PO QAM 09/06/15 11/23/16 History Digoxin [Digox] 125 mcg PO DAILY 09/06/15 11/23/16 History Morphine Sulfate ER [Ms Contin] 30 mg PO Q12HR 09/06/15 11/23/16 History Sertraline HCl 100 mg PO DAILY 09/06/15 11/23/16 History carBAMazepine [carBAMazepine XR] 200 mg PO BID 09/06/15 11/23/16 History Gabapentin 600 mg PO BID 09/13/15 11/23/16 History Metoprolol Tartrate [Lopressor] 25 mg PO BID #60 tab 09/20/15 11/23/16 Rx Warfarin [Coumadin] 5 mg PO HS 01/12/16 11/23/16 History Bumetanide [BUMEX] 1 mg PO DAILY 11/23/16 11/24/16 History Furosemide [Lasix] 40 mg PO BID 11/23/16 11/24/16 History HYDROcodone/APAP 7.5-325MG [[place] 1 - 2 tab PO Q6HR PRN 11/23/16 11/23/16 History 7.5-325] Spironolactone [Aldactone] 25 mg PO BID 11/23/16 11/23/16 History levETIRAcetam 1,000 mg PO BID 11/23/16 11/23/16 History Allergies Allergy/AdvReac Type Severity Reaction Status Date / Time codeine Allergy Chest Pain Verified 11/23/16 23:08 lorazepam [From Ativan] AdvReac GIVES THE Verified 11/23/16 23:08 OPPOSITE EFFECT Physical Exam Vitals: Vital Signs Temp Pulse Pulse Resp BP BP Pulse Ox 11/24/16 08:00 98.2 F 64 18 116/56 94 L 11/24/16 05:49 97 F L 60 16 119/61 93 L 11/24/16 05:16 97.1 F L 64 16 124/71 93 L 11/24/16 05:06 97.0 F L 61 16 118/66 93 L 11/24/16 04:00 97 F L 61 16 118/66 93 L 11/24/16 01:12 97.5 F L 74 18 127/61 97 11/24/16 00:16 69 16 146/65 95 11/23/16 22:59 75 20 11/23/16 22:27 98.8 F 61 17 170/86 94 L Intake and Output 11/23/16 11/24/16 11/24/16 22:59 06:59 14:59 Intake Total 1686 Output Total 700 Balance 986 Intake: IV 850 Phytonadione 5 mg In 50 Sodium Chloride 0.9% 50 ml @ 100 mls/hr IVPB ONCE STA Rx#:[id number] Sodium Chloride 0.9% 1, 800 000 ml @ 100 mls/hr IV . Q10H STA Rx#:[id number] Amount of Fluid Infused ( 200 ml) Blood Product 636 Ffp 24 Cpd Unit 318 [id number] Output: Urine 700 Other: Voiding Method Bedside Commode Bedside Commode # Voids 2 Weight 113.398 kg 124.7 kg General appearance: The patient is alert, oriented, in no acute distress. HET: Head is normocephalic and atraumatic. Pupils are equal and reactive. Oropharynx is clear without lesions. Neck: Supple without lymphadenopathy. Trachea midline. Heart: S1 S2. Lungs: No crackles or wheezes are heard. Abdomen: Soft, mild bilateral lower quadrant tenderness greater than left and right, nondistended with bowel sounds. No peritoneal signs. No palpable organomegaly or masses. Extremities: Normal skin color and turgor. No cyanosis, rash, ulceration, clubbing, or edema. Radial and pedal pulses are 2/4 bilaterally. Neurological: No focal deficits. Strength and sensation are grossly intact. Results CBC & Chem 7: 11/24/16 05:27 11/24/16 05:27 Labs: Abnormal Lab Results - Last 24 Hours (Table) 11/23/16 11/23/16 11/23/16 Range/Units 22:40 22:40 22:40 RBC 3.72 L (3.80-5.40) m/uL MCV 102.9 H (80.0-100.0) fL Plt Count 112 L (150-450) k/uL Lymphocytes # (1.0-4.8) k/uL PT 20.9 H (9.0-12.0) sec INR 2.2 H (<1.2) Glucose 109 H (74-99) mg/dL Albumin (3.5-5.0) g/dL 11/24/16 11/24/16 11/24/16 Range/Units 05:27 05:27 05:27 RBC 3.50 L (3.80-5.40) m/uL MCV 104.2 H (80.0-100.0) fL Plt Count 117 L (150-450) k/uL Lymphocytes # 0.8 L (1.0-4.8) k/uL PT 15.7 H (9.0-12.0) sec INR 1.6 H (<1.2) Glucose 103 H (74-99) mg/dL Albumin 3.4 L (3.5-5.0) g/dL Assessment and Plan (1) GIB (gastrointestinal bleeding) Narrative/Plan: 66-year-old female presents with suspected lower GI bleed one-day history of abdominal cramping with bloody red burgundy bowel movements possible diverticular possible ischemic possible inflammatory. Status: Acute (2) H/O mitral valve replacement with mechanical valve Status: Acute (3) Morbid obesity with BMI of 40.0-44.9, adult Status: Acute (4) Atrial fibrillation Status: Acute (5) Coagulopathy Status: Acute Plan: 1. Colonoscopy in am. CBC monitoring. Hold anticoagulation. The plate and weld inspector has discussed the risks, benefits and alternative therapies for the above-mentioned procedure and for both sedation/analgesia as well as necessary blood product administration, if indicated, as they pertain to this patient. The patient has indicated understanding and acceptance of the risks and procedures discussed. Thank you for this kind referral and the opportunity to participate in the care of your patient. This consultation was discussed with Dr. Nogueira. The impression and plan of care have been directed as dictated.
[2016-11-24] MEDS: HYDROcodone/APAP 7.5-325MG 1 EACH TAB PO PRN (14:43)
[2016-11-24] MEDS ORDERED: PEG 3350-NA SULF,BICARB,CL/KCL 4,000 ML BOTTLE PO ONE (15:00)
[2016-11-24] MEDS ORDERED: AMPICILLIN-SULBACTAM 3 GM in SODIUM CHLORIDE 0.9% 100 ML IVPB STA (15:48)
--- NOTE | 2016-11-24 16:29 | CONS ---
CONSULTATION Mrs. Duncan is a 66-year-old female who is seen for cardiac evaluation. This patient's medical record and old charts were reviewed. The patient came with lower GI bleeding. Patient had a moderate to large amount of bright red bleeding per rectum yesterday. She did not have any dizziness, lightheadedness or syncope. This patient is status post mitral valve replacement with a mechanical valve about 20 years ago and has been on Coumadin. She was not having any bleeding problem. The patient's INR was 2.2. Patient does have a history of atrial fibrillation and a prior history of a stroke. Patient is able to walk with help, but she drags her leg. Denies any history of orthopnea or PND. PAST MEDICAL HISTORY: Past medical history includes: 1. History of CVA. 2. Appendicectomy. 3. Mitral valve replacement. 4. Cholecystectomy. 5. Prior cardiac catheterization. HOME MEDICATIONS: Home medications include: 1. Lipitor 40 mg daily. 2. Digoxin. 3. Morphine sulfate. 4. Sertraline 100 mg daily. 5. Carbamazepine. 6. Gabapentin. 7. Lopressor 25 mg b.i.d. 8. Bumex 1 mg daily. 9. Lasix 40 mg b.i.d. 10.Hydrocodone. 11.Spironolactone 25 mg b.i.d. PHYSICAL EXAMINATION: Physical examination at present reveals a 66-year-old female, who does not appear to be in any acute distress. The patient's blood pressure is 118/58 mmHg. Oxygen saturation is 95%. Patient is afebrile. Head/ENT examination is negative. NECK: Supple. There is no increase in jugular venous pressure. Both the carotid pulses are felt. There is no bruit. Chest is symmetrical. HEART: The PMI is not felt. Prosthetic sounds are well heard. There is an ejection systolic murmur heard at the left sternal border. LUNGS: Clinically clear to auscultation and percussion. ABDOMEN: Soft. EXTREMITIES: Peripheral pulsations are 1+. Monitor strip shows evidence of atrial fibrillation with a controlled ventricular rate. LABS: Patient's hemoglobin is stable. Electrolytes are normal. Creatinine is 0.70. FINAL IMPRESSION: 1. This patient is primarily admitted with lower gastrointestinal bleeding. Her hemoglobin is stable. Patient is supposed to undergo colonoscopy tomorrow. Patient's INR today is 1.6. 2. Status post mitral valve replacement. RECOMMENDATIONS: We will recommend treating the patient with endocarditis prophylaxis in the form of Unasyn 3 grams IV piggyback 1 hour prior to the colonoscopy. EKG will be done and we will do an echo and Doppler study. GIA / FARHAT: [id number] /
[2016-11-24 16:33] LABS: Basophils % (A) 0 %; CH 33.5; CHCM 31.8; Eosinophils # (A) 0.1 k/uL (0-0.7); Eosinophils % (A) 2 %; HCT 36.1 % (34.0-46.0); HDW 2.02; HGB 11.2 gm/dL (11.4-16.0); Luc # (Auto) 0.07; Luc % (Auto) 2; Lymphocytes # (A) 0.9 k/uL (1.0-4.8); Lymphocytes % (A) 29 %; MCH 32.7 pg (25.0-35.0); MCHC 30.9 g/dL (31.0-37.0); MCV 105.8 fL (80.0-100.0); Macrocytosis Moderate; Mean Platelet Volume 8.2; Monocytes # (A) 0.4 k/uL (0-1.0); Monocytes % (A) 11 %; Neutrophils # (A) 1.7 k/uL (1.3-7.7); Neutrophils % (A) 56 %; RBC 3.41 m/uL (3.80-5.40); RDW 14.1 % (11.5-15.5); WBC 3.1 k/uL (3.8-10.6)
[2016-11-25 06:32] LABS: INR 1.2 (<1.2)
[2016-11-25 06:33] LABS: Prothrombin Time 11.9 sec (9.0-12.0)
[2016-11-25 06:37] LABS: ALT 34 U/L (9-52); AST 28 U/L (14-36); Alkaline Phosphatase 112 U/L (38-126); Anion Gap 8 mmol/L; Blood Urea Nitrogen 12 mg/dL (7-17); Calcium 8.6 mg/dL (8.4-10.2); Carbon Dioxide 28 mmol/L (22-30); Chloride 101 mmol/L (98-107); Glucose 91 mg/dL (74-99); Non-African American GFR(MDRD) >60 (>60 ml/min/1.73 sqM); Sodium 137 mmol/L (137-145); Total Bilirubin 0.8 mg/dL (0.2-1.3); Total Protein 6.6 g/dL (6.3-8.2)
[2016-11-25] MEDS ORDERED: AMPICILLIN-SULBACTAM 3 GM in SODIUM CHLORIDE 0.9% 100 ML IVPB STA (06:41)
[2016-11-25 06:52] LABS: Basophils % (A) 1 %; CH 32.2; CHCM 31.4; Eosinophils # (A) 0.2 k/uL (0-0.7); Eosinophils % (A) 3 %; HCT 37.4 % (34.0-46.0); HDW 2.05; HGB 11.6 gm/dL (11.4-16.0); Luc # (Auto) 0.09; Luc % (Auto) 2; Lymphocytes # (A) 1.7 k/uL (1.0-4.8); Lymphocytes % (A) 34 %; MCH 31.8 pg (25.0-35.0); MCHC 30.9 g/dL (31.0-37.0); MCV 102.8 fL (80.0-100.0); Macrocytosis Slight; Mean Platelet Volume 7.6; Monocytes # (A) 0.4 k/uL (0-1.0); Monocytes % (A) 9 %; Neutrophils # (A) 2.5 k/uL (1.3-7.7); Neutrophils % (A) 51 %; RBC 3.64 m/uL (3.80-5.40); WBC 4.8 k/uL (3.8-10.6); WBC (Perox) 4.66
[2016-11-25] MEDS ORDERED: LIDOCAINE 1% INJ 10MG/ML (20 ML MDV) ONE (08:05)
[2016-11-25] MEDS ORDERED: PROPOFOL 10 MG/ML 20 ML VIAL IV ONE (08:05)
[2016-11-25] MEDS ORDERED: IV FLUID CONTINUATION 1,000 ML IV ONE (08:05)
--- NOTE | 2016-11-25 08:30 | P.PCN ---
Date of Procedure: 11/25/16 Procedure(s) Performed: BRIEF HISTORY: Patient is a 66-year-old pleasant female, was admitted to the hospital with acute lower GI bleed. She was on Coumadin which has been on hold and INR this morning is 1.2 g/dL. She is scheduled for an colonoscopy as a part of evaluation of acute lower GI bleed. PROCEDURE PERFORMED: Colonoscopy with snare polypectomy PREOPERATIVE DIAGNOSIS: Acute lower GI bleed. IV sedation per Anesthesia. PROCEDURE: After informed consent was obtained, the patient, was brought into the endoscopy unit. IV sedation was administered by Anesthesia under continuous monitoring. Digital rectal examination was normal. Initially the Olympus CF- 160 flexible video colonoscope was then inserted in the rectum, gradually advanced into the cecum without any difficulty. Careful examination was performed as the scope was gradually being withdrawn. Ileocecal valve and the appendiceal orifice were visualized and appeared normal. Prep was excellent. Mucosa of the cecum appeared normal. In the base of the cecum there was 1 m polyp removed by snare polypectomy. In the ascending colon there was a 5-6 mm polyp removed by snare polypectomy. The rest of the ascending colon, transverse colon, descending colon, sigmoid colon, and rectum appeared normal. scattered sigmoid diverticulosis seen. Retroflexion was performed in the rectum and no lesions were seen. The patient tolerated the procedure well. IMPRESSION: No active bleeding. 1 cm cecal polyp status post polypectomy 5-6 mm ascending colon polyp status post polypectomy Scattered sigmoid diverticulosis RECOMMENDATIONS: Findings of this examination were discussed with the patient . Her diet will be advanced as tolerated and she can be discharged home today with outpatient follow-up in 2-3 weeks
[2016-11-25] MEDS: SODIUM CHLORIDE 0.9% 1,000 ML IV SCH ×2 (09:39→10:48)
[2016-11-25] MEDS: MORPHINE SULFATE ER 30 MG TABLET PO SCH ×2 (10:47→20:56)
[2016-11-25] MEDS: ATORVASTATIN 40 MG TAB PO SCH (10:48)
[2016-11-25] MEDS: GABAPENTIN 300 MG CAP PO SCH ×2 (10:48→20:56)
[2016-11-25] MEDS: SERTRALINE 100 MG TAB PO SCH (10:48)
[2016-11-25] MEDS: DIGOXIN 125 MCG TAB PO SCH (10:48)
[2016-11-25] MEDS: METOPROLOL TARTRATE 25 MG TAB PO SCH ×2 (10:48→20:57)
[2016-11-25] MEDS: levETIRAcetam 500 MG TAB PO SCH ×2 (10:48→20:56)
[2016-11-25] MEDS ORDERED: HEPARIN SODIUM,PORCINE 5,000 UNIT/ML 1 ML VIAL IV ONE (12:47)
[2016-11-25] MEDS ORDERED: HEPARIN SODIUM,PORCINE 5,000 UNIT/ML 1 ML VIAL IV PRN (12:47)
--- NOTE | 2016-11-25 12:56 | P.PN ---
Subjective Progress Note Date: 11/25/16 Principal diagnosis: GI bleed Patient is a 66-year-old female with a history of atrial fibrillation , coronary artery disease, prior stroke with residual left-sided deficits, and mechanical mitral valve who presented with bright red blood per rectum. In the emergency department she underwent an extensive evaluation. Her initial vital signs showed slight hypertension with blood pressure of 170/86. Initial laboratory analysis was essentially unremarkable other than an INR of 2.2 consistent with her chronic Coumadin use. She was given a dose of 5 mg of IV vitamin K in the ER. She was also given an unit of FFP. She was subsequently admitted to the selective care unit for further monitoring and care. GI was consult it. She underwent colonoscopy the morning of 11/25 and she was found to have a 1 cm equal follow-up and a 5-6 cm ascending colon polyp status post polypectomy and scattered diverticulosis. It was felt that her bleeding was most likely secondary to a diverticular bleed. It was discussed with Dr. Palafox the patient is okay to restart a heparin drip today. Patient seen and examined at bedside. She denies any more episodes of bright red blood per rectum, she is not having any abdominal pain, she is feeling quite sedated after her procedure, she denies any chest pain shortness of breath. Objective - Vital Signs Vital signs: Vital Signs Temp 97 F L 11/25/16 07:45 Pulse 57 L 11/25/16 12:00 Resp 16 11/25/16 12:10 BP 132/75 11/25/16 12:00 Pulse Ox 96 11/25/16 12:00 Intake & Output 11/24/16 11/25/16 11/25/16 18:59 06:59 18:59 Intake Total 800 150 Output Total 900 Balance 800 -900 150 Weight 125.6 kg Intake: IV 600 150 Sodium Chloride 0.9% 1, 600 000 ml @ 100 mls/hr IV . Q10H [facility] Rx#:[id number] Oral 200 Output: Urine 300 Urine/Stool Mix 600 Other: Voiding Method Bedside Commode Bedside Commode Bedside Commode # Voids 3 # Bowel Movements 1 - Exam General: non toxic, no distress, appears at stated age, obese Derm: no rashes, no lesions Head: atraumatic, normocephalic, symmetric Eyes: EOMI, no lid lag, anicteric sclera ENT: no post nasal drip, no thrush Mouth: no lip lesion, mucus membranes moist Cardiovascular: S1S2 reg, with systolic ejection murmur, positive posterior tibial pulse bilateral, Lungs: CTA bilateral, no rhonchi, no rales , no accessory muscle use Abdominal: soft, nontender to palpation, no guarding, no appreciable organomegaly Ext: no gross muscle atrophy, no edema, no contractures Neuro: CN II-XI grossly intact, no focal neuro deficits Psych: Alert, oriented, flat affect - Labs CBC & Chem 7: 11/25/16 05:34 11/25/16 05:34 Labs: Abnormal Lab Results - Last 24 Hours (Table) 11/24/16 11/25/16 11/25/16 Range/Units 15:45 05:34 05:34 WBC 3.1 L (3.8-10.6) k/uL RBC 3.41 L 3.64 L (3.80-5.40) m/uL Hgb 11.2 L (11.4-16.0) gm/dL MCV 105.8 H 102.8 H (80.0-100.0) fL MCHC 30.9 L 30.9 L (31.0-37.0) g/dL Plt Count 97 L 111 L (150-450) k/uL Lymphocytes # 0.9 L (1.0-4.8) k/uL INR 1.2 H (<1.2) Assessment and Plan Plan: Lower diverticular GI bleed -GI recommendations appreciated-needs outpatient follow-up in 2-3 weeks - Start iron supplementation on discharge for 30 days - discussed with Dr. Palafox and michael for heparin drip 11/25 Subtherapeutic Coumadin coagulopathy with cannonball mitral valve Start heparin drip, monitor PT/INR closely -Start Coumadin in a.m. with pharmacy to dose, goal should be 2.5-3.5 -Monitor for signs of recurrent bleeding Hypertension -Continue with Lopressor -Follow blood pressures Atrial fibrillation -Telemetry monitoring -Continue with metoprolol and digoxin CVA with residual left-sided deficits -Fall precautions Chronic conditions: Seizure disorder Dyslipidemia DVT prophylaxis: SCDs Discussed with: Patient, Dr. Nogueira (GI), and Dr. Diop (cardio) Anticipated discharge: 24-[address]: home A total of 35 minutes was spent on the care of this complex patient more than 50 % of the time was spent in counseling and care coordination.
[2016-11-25 13:19] LABS: INR 1.2 (<1.2); Partial Thromboplastin Time 24.9 sec (22.0-30.0); Prothrombin Time 11.8 sec (9.0-12.0)
[2016-11-25 13:26] LABS: Basophils % (A) 0 %; CH 33.6; CHCM 31.9; Eosinophils # (A) 0.1 k/uL (0-0.7); Eosinophils % (A) 2 %; HDW 2.06; HGB 11.8 gm/dL (11.4-16.0); Luc # (Auto) 0.05; Luc % (Auto) 1; Lymphocytes # (A) 0.7 k/uL (1.0-4.8); Lymphocytes % (A) 19 %; MCH 32.9 pg (25.0-35.0); MCHC 31.1 g/dL (31.0-37.0); MCV 105.9 fL (80.0-100.0); Macrocytosis Moderate; Monocytes # (A) 0.4 k/uL (0-1.0); Monocytes % (A) 10 %; Neutrophils # (A) 2.7 k/uL (1.3-7.7); Neutrophils % (A) 68 %; RBC 3.59 m/uL (3.80-5.40); RDW 14.3 % (11.5-15.5); WBC (Perox) 3.76
[2016-11-25] MEDS: HEPARIN SODIUM,PORCINE/D5W PMX 25,000 UNIT in DEXTROSE/WATER 1 500ML.BAG IV SCH (13:46)
--- NOTE | 2016-11-25 13:51 | PN ---
PROGRESS NOTE This patient underwent a colonoscopy. No significant abnormality was detected. We do not have definite results for the colonoscopy but she is not having any problems with bleeding. Her hemoglobin has remained stable. INR is 1.1. Prosthetic sounds are well heard. Lungs are clear to auscultation and percussion. We will give her Coumadin 7.5 mg today and if she is not having any problem from bleeding, then we will start the patient on IV heparin for next couple of days until the INR becomes in reasonable range. MMODL / IJN: [id number] /
[2016-11-25] MEDS: WARFARIN 7.5 MG TAB PO SCH (16:59)
[2016-11-26 03:02] LABS: Basophils % (A) 0 %; CH 32.4; CHCM 31.7; Eosinophils # (A) 0.2 k/uL (0-0.7); Eosinophils % (A) 3 %; Luc # (Auto) 0.07; Luc % (Auto) 2; Lymphocytes # (A) 1.4 k/uL (1.0-4.8); Lymphocytes % (A) 31 %; MCH 32.3 pg (25.0-35.0); MCHC 31.4 g/dL (31.0-37.0); MCV 102.7 fL (80.0-100.0); Macrocytosis Slight; Mean Platelet Volume 7.8; Monocytes # (A) 0.5 k/uL (0-1.0); Monocytes % (A) 11 %; Neutrophils # (A) 2.4 k/uL (1.3-7.7); Neutrophils % (A) 53 %; RBC 3.41 m/uL (3.80-5.40); RDW 13.2 % (11.5-15.5); WBC 4.6 k/uL (3.8-10.6); WBC (Perox) 4.67
[2016-11-26 03:26] LABS: INR 1.2 (<1.2); Prothrombin Time 11.8 sec (9.0-12.0)
[2016-11-26 03:51] LABS: Manual Review Performed
[2016-11-26] MEDS: SODIUM CHLORIDE 0.9% 1,000 ML IV SCH (06:49)
--- NOTE | 2016-11-26 09:10 | P.PN ---
Subjective Progress Note Date: 11/26/16 Principal diagnosis: GI bleed Patient is a 66-year-old female with a history of atrial fibrillation , coronary artery disease, prior stroke with residual left-sided deficits, and mechanical mitral valve who presented with bright red blood per rectum. In the emergency department she underwent an extensive evaluation. Her initial vital signs showed slight hypertension with blood pressure of 170/86. Initial laboratory analysis was essentially unremarkable other than an INR of 2.2 consistent with her chronic Coumadin use. She was given a dose of 5 mg of IV vitamin K in the ER. She was also given an unit of FFP. She was subsequently admitted to the selective care unit for further monitoring and care. GI was consult it. She underwent colonoscopy the morning of 11/25 and she was found to have a 1 cm equal follow-up and a 5-6 cm ascending colon polyp status post polypectomy and scattered diverticulosis. It was felt that her bleeding was most likely secondary to a diverticular bleed. It was discussed with Dr. Nogueira and the patient was started on a heparin gtt on 11/25. Her first dose of coumadin was 11/26. Patient seen and examined at bedside. She feels well today, has not had any more bleeding. Denies any chest pain, shortness of breath, or lightheadedness. She is upset that her is here in the hospitals well. She understands that she will need to stay here to bridge for a few days in order to get her Coumadin level therapeutic. Objective - Vital Signs Vital signs: Vital Signs Temp 97.6 F 11/26/16 04:00 Pulse 58 L 11/26/16 04:00 Resp 18 11/26/16 04:00 BP 95/58 11/26/16 04:00 Pulse Ox 97 11/26/16 04:00 Intake & Output 11/25/16 11/26/16 11/26/16 18:59 06:59 18:59 Intake Total 190 1107.650 Output Total 400 750 Balance -210 357.650 Weight 128 kg Intake: IV 150 760 Heparin Sodium,Porcine/ 160 D5w Pmx 25,000 unit In Dextrose/Water 1 500ml. bag @ 7.96 UNITS/KG/HR 19 .99 mls/hr IV .[facility]H [facility] Rx#:[id number] Sodium Chloride 0.9% 1, 600 000 ml @ 75 mls/hr IV . [id number] [facility] Rx#:[id number] Intake, IV Titration 40 347.650 Amount Heparin Sodium,Porcine/ 40 347.650 D5w Pmx 25,000 unit In Dextrose/Water 1 500ml. bag @ 7.96 UNITS/KG/HR 19 .99 mls/hr IV .Q24H [facility] Rx#:[id number] Output: Urine 400 750 Other: Voiding Method Bedside Commode Bedside Commode # Voids 4 2 - Exam General: non toxic, no distress, appears at stated age, obese Derm: no rashes, no lesions Head: atraumatic, normocephalic, symmetric Eyes: EOMI, no lid lag, anicteric sclera ENT: no post nasal drip, no thrush Mouth: no lip lesion, mucus membranes moist Cardiovascular: S1S2 reg, with systolic ejection murmur, positive posterior tibial pulse bilateral, Lungs: CTA bilateral, no rhonchi, no rales , no accessory muscle use Abdominal: soft, nontender to palpation, no guarding, no appreciable organomegaly Ext: no gross muscle atrophy, no edema, no contractures Neuro: CN II-XI grossly intact, no focal neuro deficits Psych: Alert, oriented, upset - Labs CBC & Chem 7: 11/26/16 02:50 11/25/16 05:34 Labs: Abnormal Lab Results - Last 24 Hours (Table) 11/25/16 11/25/16 11/25/16 Range/Units 12:53 12:53 19:45 RBC 3.59 L (3.80-5.40) m/uL Hgb (11.4-16.0) gm/dL MCV 105.9 H (80.0-100.0) fL Plt Count 107 L (150-450) k/uL Lymphocytes # 0.7 L (1.0-4.8) k/uL INR 1.2 H (<1.2) APTT 39.4 H (22.0-30.0) sec 11/26/16 11/26/16 Range/Units 02:50 02:50 RBC 3.41 L (3.80-5.40) m/uL Hgb 11.0 L (11.4-16.0) gm/dL MCV 102.7 H (80.0-100.0) fL Plt Count 99 L (150-450) k/uL Lymphocytes # (1.0-4.8) k/uL INR 1.2 H (<1.2) APTT 81.0 H (22.0-30.0) sec Assessment and Plan Plan: Lower diverticular GI bleed -GI recommendations appreciated-needs outpatient follow-up in 2-3 weeks - Start iron supplementation on discharge for 30 days - discussed with Dr. Nogueira heparin drip started 11/25 Subtherapeutic Coumadin coagulopathy with mechanical mitral valve - heparin drip, monitor PT/INR closely -coumaidn started 11/25 -Monitor for signs of recurrent bleeding Hypertension -Continue with Lopressor -Follow blood pressures Atrial fibrillation -Telemetry monitoring -Continue with metoprolol and digoxin CVA with residual left-sided deficits -Fall precautions Chronic conditions: Seizure disorder Dyslipidemia DVT prophylaxis: SCDs Discussed with: Patient, nursing Anticipated discharge: 24-[address]: home A total of 35 minutes was spent on the care of this complex patient more than 50 % of the time was spent in counseling and care coordination.
[2016-11-26] MEDS: GABAPENTIN 300 MG CAP PO SCH ×2 (09:35→20:53)
[2016-11-26] MEDS: MORPHINE SULFATE ER 30 MG TABLET PO SCH ×2 (09:35→20:53)
[2016-11-26] MEDS: HEPARIN SODIUM,PORCINE/D5W PMX 25,000 UNIT in DEXTROSE/WATER 1 500ML.BAG IV SCH (09:35)
[2016-11-26] MEDS: METOPROLOL TARTRATE 25 MG TAB PO SCH ×2 (09:36→20:53)
[2016-11-26] MEDS: DIGOXIN 125 MCG TAB PO SCH (09:36)
[2016-11-26] MEDS: SERTRALINE 100 MG TAB PO SCH (09:36)
[2016-11-26] MEDS: levETIRAcetam 500 MG TAB PO SCH ×2 (09:36→20:54)
[2016-11-26] MEDS: ATORVASTATIN 40 MG TAB PO SCH (09:36)
--- NOTE | 2016-11-26 10:04 | PN ---
PROGRESS NOTE DATE OF SERVICE: 11/26/16 INTERVAL HISTORY: Patient is a 66-year-old pleasant white female admitted to the hospital with acute lower GI bleed. She underwent a colonoscopy yesterday which showed evidence of scattered sigmoid diverticulosis and small cecal and ascending colon polyp that was removed. She is doing well. She has no further bleeding. Last hemoglobin was 11 g/dL. The patient was started back on IV heparin as well as Coumadin yesterday. PHYSICAL EXAMINATION: She appears comfortable in no apparent distress. VITAL SIGNS: Stable. Blood pressure is 112/55, pulse of 70, temperature 98. HEENT examination unremarkable. Conjunctivae pink. Sclerae anicteric. Oral cavity no lesions. Neck no JVD. No lymph node enlargement. Chest clear to auscultation. HEART: Regular rate and rhythm. ABDOMEN: Soft, nondistended, nontender. Bowel sounds are positive. No organomegaly. Extremities: No pedal edema. SKIN: No rashes. NEUROLOGIC: Alert and oriented times three. No focal deficits. LABORATORY: Labs from today: Hemoglobin of 11, WBC 4.6, platelets 99. INR 1.2. IMPRESSION: 1. Acute lower gastrointestinal bleed, possibly diverticular in nature. Currently resolved, hemoglobin stable at 11. 2. History of cardiac valve replacement, presently on IV heparin and was started on Coumadin yesterday. RECOMMENDATIONS: Since the patient is doing well with no evidence of recurrent bleeding diet can be advanced as tolerated. At this time we will sign off. Please call us if needed. Thank you for this consultation. MMODL / IJN: [id number] /
--- NOTE | 2016-11-26 14:37 | PN ---
PROGRESS NOTE This patient came with rectal bleeding possibly secondary to diverticulosis, she is feeling better. She is not having any more episodes of bleeding. Hemoglobin is stable. PHYSICAL EXAMINATION: Heart rate is 52 per minute, prosthetic sounds are well heard. Blood pressure is 100/60 mmHg. First and second heart sounds are normal. Lungs are clinically clear to auscultation and percussion. Patient is currently getting IV heparin drip. If the patient remains stable, we can discharge her home patient tomorrow on subcu Lovenox and Coumadin. MMODL / IJN: [id number] /
--- NOTE | 2016-11-26 15:22 | ECHOF ---
Referral Reason:mvr MEASUREMENTS -------- HEIGHT: 170.2 cm WEIGHT: 125.2 kg BP: 107/62 RVIDd: 4.8 cm (< 3.3) IVSd: 1.0 cm (0.6 - 1.1) LVIDd: 6.1 cm (3.9 - 5.3) LVPWd: 0.9 cm (0.6 - 1.1) IVSs: 1.3 cm LVIDs: 4.7 cm LVPWs: 1.2 cm LAESV Index (A-L): 29.76 ml/m Ao Diam: 3.0 cm (2.0 - 3.7) AV Cusp: 1.7 cm (1.5 - 2.6) LA Diam: 5.8 cm (2.7 - 3.8) AV maxP.81 mmHg AV meanP.31 mmHg RAP: 5.00 mmHg RVSP: 32.43 mmHg FINDINGS -------- Resting bradycardia (HR<60bpm). This was a technically difficult study with suboptimal views. The left ventricle is moderately dilated. Left ventricular wall thickness is normal. Overall left ventricular systolic function is low-normal with, an EF between 50 - 55 %. The right ventricle is severely enlarged. LA is midly dilated 29-33ml/m2. The right atrium is markedly enlarged. 1.5mg of Definity was utilized for enhancement of images Aortic valve is trileaflet and is mildly thickened. There is no evidence of aortic regurgitation. There is no evidence of aortic stenosis. There is physiologic regurgitation of the prosthetic mitral valve. Severe tricuspid regurgitation present. There is mild pulmonary hypertension. The right ventricular systolic pressure, as measured by Doppler, is 32.43mmHg. Trace/mild (physiologic) pulmonic regurgitation. The aortic root size is normal. The inferior vena cava is dilated with poor inspiratory collapse which is consistent with estimated right atrial pressure of 20 mmHg. The pericardium is normal. There is no pericardial effusion. CONCLUSIONS -------- 1. Resting bradycardia (HR<60bpm). 2. There is physiologic regurgitation of the prosthetic mitral valve. 3. Severe tricuspid regurgitation present. 4. There is mild pulmonary hypertension. 5. The right ventricular systolic pressure, as measured by Doppler, is 32.43mmHg. 6. Trace/mild (physiologic) pulmonic regurgitation. 7. The aortic root size is normal. 8. The inferior vena cava is dilated with poor inspiratory collapse which is consistent with estimated right atrial pressure of 20 mmHg. 9. There is no pericardial effusion. 10. This was a technically difficult study with suboptimal views. 11. The left ventricle is moderately dilated. 12. Overall left ventricular systolic function is low-normal with, an EF between 50 - 55 %. 13. The right ventricle is severely enlarged. 14. LA is midly dilated 29-33ml/m2. 15. The right atrium is markedly enlarged. 16. 1.5mg of Definity was utilized for enhancement of images 17. Aortic valve is trileaflet and is mildly thickened. IPHONE DEVELOPER: Daniel Clinton RDCS
[2016-11-26] MEDS: WARFARIN 7.5 MG TAB PO SCH (17:07)
[2016-11-26] MEDS: HYDROcodone/APAP 7.5-325MG 1 EACH TAB PO PRN (18:12)
[2016-11-27] MEDS: SODIUM CHLORIDE 0.9% 1,000 ML IV SCH ×3 (00:12→21:29)
[2016-11-27 07:33] LABS: INR 1.3 (<1.2); Partial Thromboplastin Time 46.1 sec (22.0-30.0); Prothrombin Time 12.6 sec (9.0-12.0)
[2016-11-27 08:04] LABS: Basophils % (A) 0 %; CH 31.7; CHCM 30.8; Eosinophils # (A) 0.2 k/uL (0-0.7); Eosinophils % (A) 4 %; HCT 32.1 % (34.0-46.0); HDW 2.09; HGB 10.5 gm/dL (11.4-16.0); Hypochromasia Slight; Luc # (Auto) 0.09; Luc % (Auto) 2; Lymphocytes # (A) 1.1 k/uL (1.0-4.8); Lymphocytes % (A) 28 %; MCH 33.7 pg (25.0-35.0); MCHC 32.6 g/dL (31.0-37.0); MCV 103.4 fL (80.0-100.0); Macrocytosis Slight; Mean Platelet Volume 7.2; Monocytes # (A) 0.4 k/uL (0-1.0); Monocytes % (A) 11 %; Neutrophils # (A) 2.2 k/uL (1.3-7.7); Neutrophils % (A) 55 %; RDW 13.1 % (11.5-15.5); WBC (Perox) 4.03
[2016-11-27] MEDS: HEPARIN SODIUM,PORCINE/D5W PMX 25,000 UNIT in DEXTROSE/WATER 1 500ML.BAG IV SCH ×2 (08:07→10:34)
[2016-11-27] MEDS: ATORVASTATIN 40 MG TAB PO SCH (08:09)
[2016-11-27] MEDS: levETIRAcetam 500 MG TAB PO SCH ×2 (08:10→21:23)
[2016-11-27] MEDS: GABAPENTIN 300 MG CAP PO SCH ×2 (08:10→21:22)
[2016-11-27] MEDS: SERTRALINE 100 MG TAB PO SCH (08:11)
[2016-11-27] MEDS: MORPHINE SULFATE ER 30 MG TABLET PO SCH ×2 (08:13→21:23)
[2016-11-27 08:27] LABS: Manual Review Performed; Toxic Granulation Present
[2016-11-27] MEDS: METOPROLOL TARTRATE 25 MG TAB PO SCH ×2 (10:05→23:34)
[2016-11-27] MEDS: DIGOXIN 125 MCG TAB PO SCH (11:42)
[2016-11-27] MEDS: HYDROcodone/APAP 7.5-325MG 1 EACH TAB PO PRN (13:31)
--- NOTE | 2016-11-27 14:04 | P.PN ---
Subjective Progress Note Date: 11/27/16 Principal diagnosis: patient is seen and examined in follow up of acute blood loos anemia 2/2 GI bleeding , afib and mechanical heart valve. 66-year-old female with past medical history of atrial fibrillation and mechanical heart valve on Coumadin presented with significant red blood per rectum. Her INR was within therapeutic range when seen in the ED however this was reversed and patient was given fresh frozen plasma and vitamin K. Patient later had a colonoscopy which revealed polyps and diverticulosis which is thought to be the source of bleeding. Currently patient has been stabilized now hemoglobin is still trending down slowly however patient denies any further GI bleeding. Patient is currently being monitored for any further episodes of bleeding while being bridged with heparin and Coumadin due to history of mechanical heart valve and A. fib for stroke prophylaxis. Patient is seen today feels well eager to go home denies any further bleeding denies any chest pain denies any trouble breathing denies any abdominal pain. Tolerating diet very well Objective - Vital Signs Vital signs: Vital Signs Temp 97 F L 11/27/16 11:45 Pulse 55 L 11/27/16 11:45 Resp 16 11/27/16 11:45 BP 94/60 11/27/16 11:45 Pulse Ox 95 11/27/16 11:45 Intake & Output 11/26/16 11/27/16 11/27/16 18:59 06:59 18:59 Intake Total 437.375 760 735.125 Output Total 1350 200 Balance 437.375 -590 535.125 Weight 127.2 kg Intake: IV 320 760 Heparin Sodium,Porcine/ 160 160 D5w Pmx 25,000 unit In Dextrose/Water 1 500ml. bag @ 7.96 UNITS/KG/HR 19 .99 mls/hr IV .Q24H [facility] Rx#:[id number] Sodium Chloride 0.9% 1, 160 600 000 ml @ 75 mls/hr IV . [id number] [facility] Rx#:[id number] Intake, IV Titration 117.375 555.125 Amount Heparin Sodium,Porcine/ 117.375 555.125 D5w Pmx 25,000 unit In Dextrose/Water 1 500ml. bag @ 7.96 UNITS/KG/HR 19 .99 mls/hr IV .Q24H [facility] Rx#:[id number] Oral 180 Output: Urine 1350 200 Other: Voiding Method Bedside Commode Bedside Commode # Voids 4 2 - Exam Constitutional: vital signs stable, Not in acute distress, pleasant, conversant Lungs: Clear to auscultation bilaterally, normal respiratory effort no use of accessory muscles Cardiovascular: irregular rate and rhythm, systolic murmurs, no gallops, no rubs , no peripheral edema Gastrointestinal: Soft, no tenderness to palpation, no palpable hepatosplenomegally, bowel sounds positive, no abdominal wall hernias Extremities: bilateral nonpitting leg edema with chronic dermatitis, no calf muscle tenderness Psych: Alert, oriented to place, person and time, depressed affect Neuro: Cranial nerves II-XII grossly intact, no focal sensory deficits to touch - Labs CBC & Chem 7: 11/27/16 07:02 11/25/16 05:34 Labs: Abnormal Lab Results - Last 24 Hours (Table) 11/27/16 11/27/16 Range/Units 06:57 07:02 RBC 3.10 L (3.80-5.40) m/uL Hgb 10.5 L (11.4-16.0) gm/dL Hct 32.1 L (34.0-46.0) % MCV 103.4 H (80.0-100.0) fL Plt Count 121 L (150-450) k/uL PT 12.6 H (9.0-12.0) sec INR 1.3 H (<1.2) APTT 46.1 H (22.0-30.0) sec Assessment and Plan (1) Acute blood loss anemia Narrative/Plan: secondary to diverticulosis currently resolved hemoglobin still trending down slowly patient denies any further evidence of GI bleeding Continue to monitor hemoglobin for 1 more day We'll start thyroid replacement therapy by mouth upon discharge Status: Acute (2) Acute GI bleeding Narrative/Plan: secondary to diverticulosis currently resolved Status post colonoscopy showing multiple diverticular disease and a polyp Follow-up outpatient with GI Status: Acute (3) Atrial fibrillation Narrative/Plan: paroxysmal currently rate controlled on Coumadin for stroke prophylaxis Status: Chronic (4) H/O mitral valve replacement with mechanical valve Narrative/Plan: on Coumadin with goal INR 2.5-3.5 status post reversal due to acute GI bleeding Currently being bridged with heparin One option would be to discharge home on Lovenox once hemoglobin is stable and ready for discharge Status: Chronic (5) Morbid obesity with BMI of 40.0-44.9, adult Narrative/Plan: counseled for weight loss and lifestyle modification Status: Acute (6) History of CVA (cerebrovascular accident) Narrative/Plan: continue with statin and aspirin occupational therapy for therapeutic exercises for left upper extremity to avoid contractures in the hand Status: Acute (7) Lymphedema of both lower extremities Narrative/Plan: recommended outpatient follow-up with vascular and podiatry Status: Chronic Plan: CODE STATUS:full DVT prophylaxis: heparin drip bridging Coumadin Discussed with: Patient, RN Anticipated discharge: [address]: HOME
--- NOTE | 2016-11-27 14:23 | P.PN ---
Subjective Progress Note Date: 11/27/16 Principal diagnosis: GI bleed This is a 66-year-old female admitted to the hospital with symptoms of a GI bleeding. She underwent a colonoscopy and appears that the bleeding was secondary to diverticulosis. Patient also had a polyp removed. She has history of valve replacement and has been reinitiated on her Coumadin. INR today is 1.3. Patient was given the option of going home on Lovenox, she prefers to stay in the hospital on heparin for the next couple of days if necessary. She is quite anxious about receiving injections in her belly. Objective - Vital Signs Vital signs: Vital Signs Temp 97 F L 11/27/16 11:45 Pulse 55 L 11/27/16 11:45 Resp 16 11/27/16 11:45 BP 94/60 11/27/16 11:45 Pulse Ox 95 11/27/16 11:45 Intake & Output 11/26/16 11/27/16 11/27/16 18:59 06:59 18:59 Intake Total 437.375 760 735.125 Output Total 1350 200 Balance 437.375 -590 535.125 Weight 127.2 kg Intake: IV 320 760 Heparin Sodium,Porcine/ 160 160 D5w Pmx 25,000 unit In Dextrose/Water 1 500ml. bag @ 7.96 UNITS/KG/HR 19 .99 mls/hr IV .Q24H [facility] Rx#:[id number] Sodium Chloride 0.9% 1, 160 600 000 ml @ 75 mls/hr IV . [id number] [facility] Rx#:[id number] Intake, IV Titration 117.375 555.125 Amount Heparin Sodium,Porcine/ 117.375 555.125 D5w Pmx 25,000 unit In Dextrose/Water 1 500ml. bag @ 7.96 UNITS/KG/HR 19 .99 mls/hr IV .Q24H [facility] Rx#:[id number] Oral 180 Output: Urine 1350 200 Other: Voiding Method Bedside Commode Bedside Commode # Voids 4 2 - Exam PHYSICAL EXAMINATION: HEENT: Head is atraumatic, normocephalic. Pupils equal, round. Neck is supple. There is no elevated jugular venous pressure. HEART EXAMINATION: Heart S1, S2 metallic valve sound heard . No murmur or gallop heard. CHEST EXAMINATION: Lungs are clear to auscultation and precussion. No chest wall tenderness is noted on palpation or with deep breathing. ABDOMEN: Soft, obese, nontender. Bowel sounds are heard. No organomegaly noted. EXTREMITIES: 2+ peripheral pulses with no evidence of peripheral edema and no calf tenderness noted. NEUROLOGIC patient is awake, alert and oriented -3. . - Labs CBC & Chem 7: 11/27/16 07:02 11/25/16 05:34 Labs: Abnormal Lab Results - Last 24 Hours (Table) 11/27/16 11/27/16 Range/Units 06:57 07:02 RBC 3.10 L (3.80-5.40) m/uL Hgb 10.5 L (11.4-16.0) gm/dL Hct 32.1 L (34.0-46.0) % MCV 103.4 H (80.0-100.0) fL Plt Count 121 L (150-450) k/uL PT 12.6 H (9.0-12.0) sec INR 1.3 H (<1.2) APTT 46.1 H (22.0-30.0) sec Assessment and Plan (1) Acute GI bleeding Status: Acute (2) Morbid obesity with BMI of 40.0-44.9, adult Status: Acute (3) Paroxysmal a-fib Status: Acute (4) H/O mitral valve replacement with mechanical valve Status: Chronic (5) HTN (hypertension) Status: Acute (6) History of CVA (cerebrovascular accident) Status: Acute Plan: From cardiology's perspective, we'll continue the IV heparin, continue Coumadin 7-1/2 mg daily, monitor daily PT/INR. DNP note has been reviewed, I agree with a documented findings and plan of care. Patient was seen and examined.
[2016-11-27] MEDS: WARFARIN 7.5 MG TAB PO SCH (17:38)
[2016-11-28] MEDS: HEPARIN SODIUM,PORCINE/D5W PMX 25,000 UNIT in DEXTROSE/WATER 1 500ML.BAG IV SCH ×2 (01:38→20:51)
[2016-11-28] MEDS: ATORVASTATIN 40 MG TAB PO SCH (08:35)
[2016-11-28] MEDS: ASPIRIN 81 MG PO SCH (08:35)
[2016-11-28] MEDS: GABAPENTIN 300 MG CAP PO SCH ×2 (08:35→20:50)
[2016-11-28] MEDS: DIGOXIN 125 MCG TAB PO SCH (08:36)
[2016-11-28] MEDS: levETIRAcetam 500 MG TAB PO SCH ×2 (08:36→20:50)
[2016-11-28] MEDS: METOPROLOL TARTRATE 25 MG TAB PO SCH ×2 (08:37→20:50)
[2016-11-28] MEDS: SERTRALINE 100 MG TAB PO SCH (08:37)
[2016-11-28] MEDS: MORPHINE SULFATE ER 30 MG TABLET PO SCH ×2 (08:39→20:54)
[2016-11-28 09:26] LABS: INR 1.5 (<1.2); Prothrombin Time 14.7 sec (9.0-12.0)
[2016-11-28 09:36] LABS: Anion Gap 8 mmol/L; Blood Urea Nitrogen 10 mg/dL (7-17); Calcium 8.6 mg/dL (8.4-10.2); Carbon Dioxide 26 mmol/L (22-30); Chloride 105 mmol/L (98-107); Glucose 89 mg/dL (74-99); Non-African American GFR(MDRD) >60 (>60 ml/min/1.73 sqM); Potassium 4.6 mmol/L (3.5-5.1); Sodium 139 mmol/L (137-145)
[2016-11-28 09:46] LABS: Basophils % (A) 0 %; CH 32.1; CHCM 30.4; Eosinophils # (A) 0.2 k/uL (0-0.7); Eosinophils % (A) 4 %; HCT 34.7 % (34.0-46.0); HDW 2.06; HGB 10.7 gm/dL (11.4-16.0); Hypochromasia Slight; Luc % (Auto) 3; Lymphocytes % (A) 24 %; MCH 32.6 pg (25.0-35.0); MCHC 30.8 g/dL (31.0-37.0); Macrocytosis Moderate; Mean Platelet Volume 7.5; Monocytes # (A) 0.4 k/uL (0-1.0); Monocytes % (A) 9 %; Neutrophils # (A) 2.4 k/uL (1.3-7.7); Neutrophils % (A) 60 %; RBC 3.27 m/uL (3.80-5.40); RDW 13.2 % (11.5-15.5); WBC 4.1 k/uL (3.8-10.6); WBC (Perox) 4.17
[2016-11-28] MEDS ORDERED: ACETAMINOPHEN TAB 325 MG TAB PO PRN (10:32)
[2016-11-28] MEDS: SODIUM CHLORIDE 0.9% 1,000 ML IV SCH (12:05)
--- NOTE | 2016-11-28 12:51 | P.PN ---
Subjective Progress Note Date: 11/28/16 Mrs. Duncan is a 66-year-old female that was admitted to the hospital with symptoms of GI bleeding. She underwent a colonoscopy and polypectomy. There was no active bleeding seen. She has a history of mitral valve replacement and atrial fibrillation for which she takes coumadin. This was restarted and she has currently been kept in the hospital until her INR was therapeutic secondary to reluctance to do self injections of lovenox. Upon exam today she is seen sitting up in bed in no acute distress. She denies chest pain , shortness of breath, dizziness, palpitations or any cardiac related symptoms. INR is 1.5 today. Objective - Vital Signs Vital signs: Vital Signs Temp 97.1 F L 11/28/16 07:00 Pulse 68 11/28/16 07:00 Resp 20 11/28/16 07:00 BP 115/73 11/28/16 07:00 Pulse Ox 100 11/28/16 07:00 Intake & Output 11/27/16 11/28/16 11/28/16 18:59 06:59 18:59 Intake Total 1164.753 221.158 232.629 Output Total 200 Balance 964.753 221.158 232.629 Intake: Intake, IV Titration 748.753 221.158 232.629 Amount Heparin Sodium,Porcine/ 748.753 221.158 232.629 D5w Pmx 25,000 unit In Dextrose/Water 1 500ml. bag @ 7.96 UNITS/KG/HR 19 .99 mls/hr IV .Q24H [facility] Rx#:[id number] Oral 416 Output: Urine 200 Other: # Voids 1 1 - Exam GENERAL: Well-appearing, well-nourished and in no acute distress. Morbidly obese. NECK: Supple without JVD or thyromegaly. LUNGS: Breath sounds clear to auscultation bilaterally. Respiration equal and unlabored. No wheezes, rales or rhonchi. HEART: Irregular rate and rhythm without murmurs, rubs or gallops. S1 and S2 heard. Mitral click heard secondary to valve replacement. EXTREMITIES: B/L lower extremities obese, non-pitting edema, dry and firm to touch. She states this to be her baseline. - Labs CBC & Chem 7: 11/28/16 08:08 11/28/16 08:08 Labs: Abnormal Lab Results - Last 24 Hours (Table) 11/27/16 11/28/16 11/28/16 Range/Units 16:25 08:08 08:08 RBC 3.27 L (3.80-5.40) m/uL Hgb 10.7 L (11.4-16.0) gm/dL MCV 106.0 H (80.0-100.0) fL MCHC 30.8 L (31.0-37.0) g/dL Plt Count 122 L (150-450) k/uL PT 14.7 H (9.0-12.0) sec INR 1.5 H (<1.2) APTT 57.5 H 67.0 H (22.0-30.0) sec Assessment and Plan Plan: ASSESSMENT 1. Acute GI bleed, resolved 2. History of mitral valve replacement on chronic long winder tender anticoagulation 3. Paroxysmal atrial fibrillation 4. Essential hypertension 5. History of CVA 6. Morbid obesity PLAN Continue with coumadin 7.5 mg daily. INR 1.5. Heparin can be discontinued and she is stable for discharge from cardiology perspective. She should have INR drawn in 1-week and see Dr. Diop in 2 weeks. Nurse Practitioner note has been reviewed, I agree with a documented findings and plan of care. Patient was seen and examined.
--- NOTE | 2016-11-28 13:10 | P.PN ---
Subjective Progress Note Date: 11/28/16 Principal diagnosis: patient is seen and examined in follow up of acute blood loss anemia 2/2 GI bleeding , afib and mechanical heart valve. 66-year-old female with past medical history of atrial fibrillation and mechanical heart valve on Coumadin presented with significant red blood per rectum. Her INR was within therapeutic range when seen in the ED however this was reversed and patient was given fresh frozen plasma and vitamin K. Patient later had a colonoscopy which revealed polyps and diverticulosis which is thought to be the source of bleeding. Currently patient has been stabilized now hemoglobin is still trending down slowly however patient denies any further GI bleeding. Patient is currently being monitored for any further episodes of bleeding while being bridged with heparin and Coumadin due to history of mechanical heart valve and A. fib for stroke prophylaxis. Patient is seen today feels well, denies any further evidence of GI bleeding, tolerating PO intake, denies any chest pain or trouble breathing. she refuses the option of using lovenox at home, and feels more comfortable with bridging her coumadin level inpatient while on heparin. She is complaining of mild headache this morning without any new focal neurologic deficits Objective - Vital Signs Vital signs: Vital Signs Temp 97.1 F L 11/28/16 07:00 Pulse 68 11/28/16 07:00 Resp 20 11/28/16 07:00 BP 115/73 11/28/16 07:00 Pulse Ox 100 11/28/16 07:00 Intake & Output 11/27/16 11/28/16 11/28/16 18:59 06:59 18:59 Intake Total 1164.753 221.158 232.629 Output Total 200 Balance 964.753 221.158 232.629 Intake: Intake, IV Titration 748.753 221.158 232.629 Amount Heparin Sodium,Porcine/ 748.753 221.158 232.629 D5w Pmx 25,000 unit In Dextrose/Water 1 500ml. bag @ 7.96 UNITS/KG/HR 19 .99 mls/hr IV .Q24H [facility] Rx#:[id number] Oral 416 Output: Urine 200 Other: # Voids 1 1 - Exam Constitutional: vital signs stable, Not in acute distress, pleasant, conversant Lungs: Clear to auscultation bilaterally, normal respiratory effort Cardiovascular: irregular rate and rhythm, systolic murmurs, no gallops, no rubs Gastrointestinal: Soft, no tenderness to palpation, bowel sounds positive Extremities: bilateral nonpitting leg edema with chronic dermatitis, no calf muscle tenderness Psych: Alert, oriented to place, person and time, depressed affect Neuro: Cranial nerves II-XII grossly intact, no new focal sensory or motor deficit, speech is at baseline and unremarkable - Labs CBC & Chem 7: 11/28/16 08:08 11/28/16 08:08 Labs: Abnormal Lab Results - Last 24 Hours (Table) 11/27/16 11/28/16 11/28/16 Range/Units 16:25 08:08 08:08 RBC 3.27 L (3.80-5.40) m/uL Hgb 10.7 L (11.4-16.0) gm/dL MCV 106.0 H (80.0-100.0) fL MCHC 30.8 L (31.0-37.0) g/dL Plt Count 122 L (150-450) k/uL PT 14.7 H (9.0-12.0) sec INR 1.5 H (<1.2) APTT 57.5 H 67.0 H (22.0-30.0) sec Assessment and Plan (1) Atrial fibrillation Narrative/Plan: paroxysmal currently rate controlled on Heparin gtt bridging Coumadin for stroke prophylaxis patient did not feel comfortable self injecting lovenox at home while bridging coumadin patient chose to stay hospitalized and utilized heparin drip for bridging until INR theraputic Status: Chronic (2) H/O mitral valve replacement with mechanical valve Narrative/Plan: on Coumadin with goal INR 2.5-3.5 status post reversal due to acute GI bleeding Currently being bridged with heparin Status: Chronic (3) Acute blood loss anemia Narrative/Plan: secondary to diverticulosis currently resolved hemoglobin is stable today and slightly improving Status: Acute (4) Acute GI bleeding Narrative/Plan: secondary to diverticulosis currently resolved Status post colonoscopy showing multiple diverticular disease and a polyp Follow-up outpatient with GI Status: Acute (5) Morbid obesity with BMI of 40.0-44.9, adult Narrative/Plan: counseled for weight loss and lifestyle modification Status: Acute (6) History of CVA (cerebrovascular accident) Narrative/Plan: continue with statin and aspirin occupational therapy for therapeutic exercises for left upper extremity to avoid contractures in the hand Status: Acute (7) Lymphedema of both lower extremities Narrative/Plan: recommended outpatient follow-up with vascular and podiatry Status: Chronic Plan: patient seems to be stable today continue bridging with heparin drip until theraputic INR monitor for any evidence of recurrent GI bleeding tylenol for headaches renal function stable check vitamin B12 and rbc folate due to macrocytic anemia
[2016-11-28] MEDS: WARFARIN 7.5 MG TAB PO SCH (17:54)
[2016-11-28] MEDS: IPRATROPIUM-ALBUTEROL 3 ML NEB INHALATION PRN (19:24)
[2016-11-28 23:54] VITALS: RESP 18
[2016-11-29] MEDS: SODIUM CHLORIDE 0.9% 1,000 ML IV SCH ×2 (01:42→16:53)
[2016-11-29] MEDS: IPRATROPIUM-ALBUTEROL 3 ML NEB INHALATION PRN ×2 (07:59→11:26)
[2016-11-29] MEDS: MORPHINE SULFATE ER 30 MG TABLET PO SCH (08:43)
[2016-11-29 08:44] LABS: Basophils % (A) 0 %; CH 33.2; Eosinophils # (A) 0.1 k/uL (0-0.7); Eosinophils % (A) 3 %; HCT 34.1 % (34.0-46.0); HDW 2.07; HGB 10.6 gm/dL (11.4-16.0); Luc # (Auto) 0.11; Luc % (Auto) 3; Lymphocytes % (A) 25 %; MCH 33.6 pg (25.0-35.0); MCHC 31.2 g/dL (31.0-37.0); MCV 107.8 fL (80.0-100.0); Macrocytosis Moderate; Mean Platelet Volume 8.1; Monocytes # (A) 0.3 k/uL (0-1.0); Monocytes % (A) 9 %; Neutrophils # (A) 2.4 k/uL (1.3-7.7); Neutrophils % (A) 60 %; RBC 3.16 m/uL (3.80-5.40); RDW 14.4 % (11.5-15.5); WBC (Perox) 3.17
[2016-11-29] MEDS: GABAPENTIN 300 MG CAP PO SCH (08:45)
[2016-11-29] MEDS: levETIRAcetam 500 MG TAB PO SCH (08:45)
[2016-11-29] MEDS: SERTRALINE 100 MG TAB PO SCH (08:45)
[2016-11-29] MEDS: DIGOXIN 125 MCG TAB PO SCH (08:46)
[2016-11-29] MEDS: ATORVASTATIN 40 MG TAB PO SCH (08:46)
[2016-11-29] MEDS: ASPIRIN 81 MG PO SCH (08:46)
[2016-11-29] MEDS: METOPROLOL TARTRATE 25 MG TAB PO SCH (08:47)
[2016-11-29 08:56] LABS: INR 1.8 (<1.2); Prothrombin Time 17.1 sec (9.0-12.0)
--- NOTE | 2016-11-29 12:11 | P.PN ---
Subjective Progress Note Date: 11/29/16 Principal diagnosis: patient is seen and examined in follow up of acute blood loss anemia 2/2 GI bleeding , subtheraputic INR afib and mechanical heart valve. 66-year-old female with past medical history of atrial fibrillation and mechanical heart valve on Coumadin presented with significant red blood per rectum. Her INR was within therapeutic range when seen in the ED however this was reversed and patient was given fresh frozen plasma and vitamin K. Patient later had a colonoscopy which revealed polyps and diverticulosis which is thought to be the source of bleeding. Currently patient has been stabilized now hemoglobin is still trending down slowly however patient denies any further GI bleeding. Patient is currently being monitored for any further episodes of bleeding while being bridged with heparin and Coumadin due to history of mechanical heart valve and A. fib for stroke prophylaxis. Patient is seen today feels well, denies any further evidence of GI bleeding, tolerating PO intake, denies any chest pain. She had an episode of wheezing yesterday , however resolved with Duonebs, she reports history of bronchitis before. Again , I discussed the option of using lovenox at home, She is willing to consider that option if a visiting nurse is willing to come over and give the shots. Discussed with test case developer to see if this would be covered Objective - Vital Signs Vital signs: Vital Signs Temp 98.2 F 11/29/16 07:00 Pulse 76 11/29/16 11:38 Resp 18 11/29/16 07:00 BP 122/56 11/29/16 07:00 Pulse Ox 99 11/29/16 07:00 Intake & Output 11/28/16 11/29/16 11/29/16 18:59 06:59 18:59 Intake Total 232.629 367.371 Balance 232.629 367.371 Intake: Intake, IV Titration 232.629 267.371 Amount Heparin Sodium,Porcine/ 232.629 267.371 D5w Pmx 25,000 unit In Dextrose/Water 1 500ml. bag @ 7.96 UNITS/KG/HR 19 .99 mls/hr IV .Q24H [facility] Rx#:[id number] Oral 100 Other: # Voids 2 1 - Exam Constitutional: vital signs stable, Not in acute distress, pleasant, conversant Lungs: Clear to auscultation bilaterally, normal respiratory effort Cardiovascular: irregular rate and rhythm, systolic murmurs , mechanical click, no gallops, no rubs Gastrointestinal: Soft, no tenderness to palpation, bowel sounds positive Extremities: bilateral nonpitting leg edema with chronic dermatitis, no calf muscle tenderness Psych: Alert, oriented to place, person and time, depressed affect - Labs CBC & Chem 7: 11/29/16 08:12 11/28/16 08:08 Labs: Abnormal Lab Results - Last 24 Hours (Table) 11/29/16 11/29/16 11/29/16 Range/Units 08:12 08:12 08:20 RBC 3.16 L (3.80-5.40) m/uL Hgb 10.6 L (11.4-16.0) gm/dL MCV 107.8 H (80.0-100.0) fL Plt Count 115 L (150-450) k/uL PT 17.1 H (9.0-12.0) sec INR 1.8 H (<1.2) APTT 76.4 H (22.0-30.0) sec Assessment and Plan (1) Atrial fibrillation Narrative/Plan: paroxysmal currently rate controlled on Heparin gtt bridging Coumadin for stroke prophylaxis patient did not feel comfortable self injecting lovenox at home while bridging coumadin patient chose to stay hospitalized and utilized heparin drip for bridging until INR theraputic Current Visit: Yes Status: Chronic Code(s): I48.91 - UNSPECIFIED ATRIAL FIBRILLATION SNOMED Code(s): 21662408 (2) H/O mitral valve replacement with mechanical valve Narrative/Plan: on Coumadin with goal INR 2.5-3.5 status post reversal due to acute GI bleeding Currently being bridged with heparin Current Visit: Yes Status: Chronic Code(s): Z95.2 - PRESENCE OF PROSTHETIC HEART VALVE SNOMED Code(s): 33093343595433 (3) Acute blood loss anemia Narrative/Plan: secondary to diverticulosis currently resolved hemoglobin is stable today and slightly improving Current Visit: Yes Status: Acute Code(s): D62 - ACUTE POSTHEMORRHAGIC ANEMIA SNOMED Code(s): 778619777 (4) Acute GI bleeding Narrative/Plan: secondary to diverticulosis currently resolved Status post colonoscopy showing multiple diverticular disease and a polyp Follow-up outpatient with GI Current Visit: Yes Status: Resolved Code(s): K92.2 - GASTROINTESTINAL HEMORRHAGE, UNSPECIFIED SNOMED Code(s): 76360815 (5) Morbid obesity with BMI of 40.0-44.9, adult Narrative/Plan: counseled for weight loss and lifestyle modification Current Visit: Yes Status: Chronic Code(s): E66.01 - MORBID (SEVERE) OBESITY DUE TO EXCESS CALORIES; Z68.41 - BODY MASS INDEX (BMI) 40.0-44.9, ADULT SNOMED Code(s): 475735663 (6) History of CVA (cerebrovascular accident) Narrative/Plan: continue with statin and aspirin occupational therapy for therapeutic exercises for left upper extremity to avoid contractures in the hand residual left sided weakness Current Visit: No Status: Resolved Code(s): Z86.73 - PRSNL HX OF TIA (TIA), AND CEREB INFRC W/O RESID DEFICITS SNOMED Code(s): 488422371 (7) Lymphedema of both lower extremities Narrative/Plan: recommended outpatient follow-up with vascular and podiatry Current Visit: Yes Status: Chronic Code(s): I89.0 - LYMPHEDEMA, NOT ELSEWHERE CLASSIFIED SNOMED Code(s): 32679935763234896 (8) Epistaxis Narrative/Plan: mild due to irritation of nasal passages add humidifier to the nasal oxygen use vasaline Current Visit: Yes Status: Acute Code(s): R04.0 - EPISTAXIS SNOMED Code(s) : 631912825 (9) History of bronchitis Narrative/Plan: episode of wheezing yesterday now resolved continue with PRN Duonebs Albuterol inhaler PRN upon discharge Current Visit: Yes Status: Acute Code(s): Z87.09 - PERSONAL HISTORY OF OTHER DISEASES OF THE RESPIRATORY SYSTEM SNOMED Code(s): 351166836 Plan: Patient is doing well, willing to go home if a visiting nurse would administer the lovenox twice a day until INR theraputic no recurrent GI bleeding assess for home oxygen requirement
[2016-11-29] MEDS: HEPARIN SODIUM,PORCINE/D5W PMX 25,000 UNIT in DEXTROSE/WATER 1 500ML.BAG IV SCH (14:58)
[2016-11-29 15:33] VITALS: BP 125/58; PULSE 67; TEMP 97.5
[2016-11-29] MEDS ORDERED: INFLUENZA VACCINE (6 MOS+) 60 MCG/0.5 ML SYRINGE IM ONE (16:45)
--- NOTE | 2016-11-29 16:46 | P.DS ---
Providers Date of admission: 11/23/16 23:51 Expected date of discharge: 11/29/16 Attending physician: Marybeth Galindo MD Consults: GI dr Nogueira Cardiology Dr. Jadon Marcos vascular surgery Primary care physician: Melody Arce - Discharge Diagnosis(es) (1) Atrial fibrillation Current Visit: Yes Status: Chronic (2) H/O mitral valve replacement with mechanical valve Current Visit: Yes Status: Chronic (3) Acute blood loss anemia Current Visit: Yes Status: Acute (4) Acute GI bleeding Current Visit: Yes Status: Resolved (5) Morbid obesity with BMI of 40.0-44.9, adult Current Visit: Yes Status: Chronic (6) History of CVA (cerebrovascular accident) Current Visit: No Status: Resolved (7) Lymphedema of both lower extremities Current Visit: Yes Status: Chronic (8) Epistaxis Current Visit: Yes Status: Acute (9) History of bronchitis Current Visit: Yes Status: Acute Hospital Course: 66-year-old female with past medical history of atrial fibrillation and mechanical heart valve on Coumadin presented with significant red blood per rectum. Her INR was within therapeutic range when seen in the ED however this was reversed and patient was given fresh frozen plasma and vitamin K. Patient later had a colonoscopy which revealed polyps and diverticulosis which is thought to be the source of bleeding. Currently patient has been stabilized now hemoglobin is stable, patient denies any further GI bleeding. Patient is currently on heparin drip bridging coumadin, INR goal 2.5-3.5 currently still subtheraputic. Patient is willing to go home and utilize lovenox to bridge coumadin until theraputic, cardiology cleared patient for discharge. please refer to progress note dated 11/29/2016 for the face to face interview prior to discharge. 40 minutes were spent discharging this patient . and more than 50% of the time was spent in coordination of care and counseling. I called the patient who is willing to help his with her lovenox injections. 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 patient will be given 1 week supply of lovenox 127 mg BID , and coumadin at 7.5 mg daily , monitor for any evidence of GI bleeding, monitor PT/INR. Patient PCP to dose coumadin patient is discharged in stable medical condition. Procedures: colonoscopy showing diverticulosis and colonic polyp, follow up with GI regarding pathology results Patient Condition at Discharge: Fair Plan - Discharge Summary New Discharge Prescriptions: New Albuterol Inhaler [Ventolin Hfa Inhaler] 1 - 2 puff INHALATION Q6HR PRN #1 inhaler PRN Reason: Shortness Of Breath Continue Morphine Sulfate ER [Ms Contin] 30 mg PO Q12HR carBAMazepine [carBAMazepine XR] 200 mg PO BID Digoxin [Digox] 125 mcg PO DAILY Sertraline HCl 100 mg PO DAILY Atorvastatin Calcium [Lipitor] 40 mg PO QAM Gabapentin 600 mg PO BID Metoprolol Tartrate [Lopressor] 25 mg PO BID #60 tab levETIRAcetam 1,000 mg PO BID HYDROcodone/APAP 7.5-325MG [[place] 7.5-325] 1 - 2 tab PO Q6HR PRN PRN Reason: Pain Spironolactone [Aldactone] 25 mg PO BID Furosemide [Lasix] 40 mg PO BID Discontinued Warfarin [Coumadin] 5 mg PO HS Bumetanide [BUMEX] 1 mg PO DAILY Discharge Medication List Atorvastatin Calcium [Lipitor] 40 mg PO QAM 09/06/15 [History] Digoxin [Digox] 125 mcg PO DAILY 09/06/15 [History] Morphine Sulfate ER [Ms Contin] 30 mg PO Q12HR 09/06/15 [History] Sertraline HCl 100 mg PO DAILY 09/06/15 [History] carBAMazepine [carBAMazepine XR] 200 mg PO BID 09/06/15 [History] Gabapentin 600 mg PO BID 09/13/15 [History] Metoprolol Tartrate [Lopressor] 25 mg PO BID #60 tab 09/20/15 [Rx] Furosemide [Lasix] 40 mg PO BID 11/23/16 [History] HYDROcodone/APAP 7.5-325MG [[place] 7.5-325] 1 - 2 tab PO Q6HR PRN 11/23/16 [ History] Spironolactone [Aldactone] 25 mg PO BID 11/23/16 [History] levETIRAcetam 1,000 mg PO BID 11/23/16 [History] Albuterol Inhaler [Ventolin Hfa Inhaler] 1 - 2 puff INHALATION Q6HR PRN #1 inhaler 11/29/16 [Rx] Follow up Appointment(s)/Referral(s): Melody Arce DO [Primary Care Provider] - 1-2 days [facility], [NON-STAFF] - Keith Murcia MD [STAFF PHYSICIAN] - 1 Week aRshawn Diop MD [STAFF PHYSICIAN] - 2 Weeks Nory Nogueira MD [STAFF PHYSICIAN] - 1 Week Ambulatory/Diagnostic Orders: Complete Blood Count w/diff [LAB.AMB] Time Frame: 3 Days, Facility: [facility], Location: Determined By Patient Prothrombin Time INR [LAB.AMB] Time Frame: 1 Week, Location: Determined By Patient Prothrombin Time INR [LAB.AMB] Time Frame: 11/30/16, Location: Determined By Patient Prothrombin Time INR [LAB.AMB] Time Frame: 3 Days, Location: Determined By Patient Patient Instructions/Handouts: Diverticulosis (DC), Safe Use of Anticoagulants (GEN) Activity/Diet/Wound Care/Special Instructions: Discharge pending on INR level. Patient does not wish to go home on lovenox at this time. Discharge Disposition: HOME WITH HOME HEALTH SERVICES
[2016-11-29] MEDS: WARFARIN 7.5 MG TAB PO SCH (16:55)
== END 2016-11-29 17:30 | disposition home health service (06) | DRG 378 ==
LOC: EC 22:26 → 6SEL 23:51 → 4MS4W 11-27 21:00
PROVIDERS: ADMIT Internal Medicine; ATTEND Internal Medicine
PROC: 30233L1 Transfusion of Nonautologous Fresh Plasma into Peripheral Vein, Percutaneous Approach (ICD-10-PCS; 2016-11-23)
PROC: 0DBK8ZX Excision of Ascending Colon, Via Natural or Artificial Opening Endoscopic, Diagnostic (ICD-10-PCS; 2016-11-25)
PROC: 0DBH8ZX Excision of Cecum, Via Natural or Artificial Opening Endoscopic, Diagnostic (ICD-10-PCS; 2016-11-25)
PROC: 3E0234Z Introduction of Serum, Toxoid and Vaccine into Muscle, Percutaneous Approach (ICD-10-PCS; principal; 2016-11-29)
DX: K57.31 Diverticulosis of large intestine without perforation or abscess with bleeding (principal); I69.354 Hemiplegia and hemiparesis following cerebral infarction affecting left non-dominant side; D62 Acute posthemorrhagic anemia; I48.0 Paroxysmal atrial fibrillation; E66.01 Morbid (severe) obesity due to excess calories; I10 Essential (primary) hypertension; G40.909 Epilepsy, unspecified, not intractable, without status epilepticus; E11.9 Type 2 diabetes mellitus without complications; Z23 Encounter for immunization; D53.9 Nutritional anemia, unspecified; D12.2 Benign neoplasm of ascending colon; D12.0 Benign neoplasm of cecum; E78.5 Hyperlipidemia, unspecified; R04.0 Epistaxis; I89.0 Lymphedema, not elsewhere classified; R79.1 Abnormal coagulation profile; F32.9 Major depressive disorder, single episode, unspecified; I25.10 Atherosclerotic heart disease of native coronary artery without angina pectoris; Z79.01 Long term (current) use of anticoagulants; Z79.899 Other long term (current) drug therapy; Z95.2 Presence of prosthetic heart valve; Z90.49 Acquired absence of other specified parts of digestive tract; Z88.5 Allergy status to narcotic agent; Z88.8 Allergy status to other drugs, medicaments and biological substances
CPT/HCPCS: 36415; 45385; 80048; 80053; 82550; 82553; 82747; 83690; 83735; 84100; 84484; 85025; 85610; 85730; 86850; 86900; 86901; 88305; 90686; 93306; 94640; 96361; 96365; 96375; 99285

== ENCOUNTER 2017-05-02 14:29 | Emergency (ER) | payer BC ==
[2017-05-02 14:36] VITALS: BP 163/70; PULSE 71; RESP 18; TEMP 98.6
[2017-05-02 15:17] LABS: Basophils % (A) 0 %; Eosinophils # (A) 0.2 k/uL (0-0.7); Eosinophils % (A) 4 %; HCT 31.1 % (34.0-46.0); HGB 9.8 gm/dL (11.4-16.0); Hypochromasia Slight; Lymphocytes # (A) 0.7 k/uL (1.0-4.8); Lymphocytes % (A) 15 %; MCH 31.7 pg (25.0-35.0); MCHC 31.6 g/dL (31.0-37.0); MCV 100.4 fL (80.0-100.0); Macrocytosis Slight; Mean Platelet Volume 7.5; Monocytes # (A) 0.3 k/uL (0-1.0); Monocytes % (A) 7 %; Neutrophils # (A) 3.4 k/uL (1.3-7.7); Neutrophils % (A) 72 %; Platelet Count 202 k/uL (150-450); RBC 3.09 m/uL (3.80-5.40); RDW 14.4 % (11.5-15.5); WBC 4.7 k/uL (3.8-10.6)
[2017-05-02 15:23] LABS: INR 3.5 (<1.2); Prothrombin Time 31.6 sec (9.0-12.0)
--- NOTE | 2017-05-02 15:26 | ED ---
General Adult HPI - General Chief complaint: Extremity Injury, Upper Stated complaint: fall/arm pain Time Seen by Provider: 05/02/17 14:47 Source: patient, RN notes reviewed Mode of arrival: wheelchair Limitations: no limitations - History of Present Illness Initial comments: Patient 66-year-old female who presents emergency room today with a chief complaint of a fall that occurred 1 week ago. She states she fell out of her bed. Patient admits to a history of a previous stroke and states she has no use of the left upper extremity. She states that it was caught behind her with this fall she's had increased pain to the humerus and left shoulder area. Does admit to increased swelling. She states there has been bruising. She is on a blood thinner Coumadin she's not had it checked recently. She denies any head injury or loss of consciousness. She denies any other complaints at this time. She states pain is worse with certain movements that she makes with her arm as it typically will move with her body. She states she has a chronic dislocation on the side and is not a new finding today. Patient denies any other complaints. Denies any head injury, headache, nausea or vomiting, back pain, abdominal pain, chest pain, shortness of breath. - Related Data Home Medications Medication Instructions Recorded Confirmed Atorvastatin Calcium [Lipitor] 40 mg PO QAM 09/06/15 11/23/16 Digoxin [Digox] 125 mcg PO DAILY 09/06/15 11/23/16 Morphine Sulfate ER [Ms Contin] 30 mg PO Q12HR 09/06/15 11/23/16 Sertraline HCl 100 mg PO DAILY 09/06/15 11/23/16 carBAMazepine [carBAMazepine XR] 200 mg PO BID 09/06/15 11/23/16 Gabapentin 600 mg PO BID 09/13/15 11/23/16 Furosemide [Lasix] 40 mg PO BID 11/23/16 11/24/16 HYDROcodone/APAP 7.5-325MG [[place] 1 - 2 tab PO Q6HR PRN 11/23/16 11/23/16 7.5-325] Spironolactone [Aldactone] 25 mg PO BID 11/23/16 11/23/16 levETIRAcetam 1,000 mg PO BID 11/23/16 11/23/16 Previous Rx's Medication Instructions Recorded Metoprolol Tartrate [Lopressor] 25 mg PO BID #60 tab 09/20/15 Albuterol Inhaler [Ventolin Hfa 1 - 2 puff INHALATION Q6HR PRN #1 11/29/16 Inhaler] inhaler Aspirin EC [Ecotrin Low Dose] 81 mg PO DAILY #100 tablet. 11/29/16 Allergies Allergy/AdvReac Type Severity Reaction Status Date / Time codeine Allergy Chest Pain Verified 05/02/17 14:36 lorazepam [From Ativan] AdvReac GIVES THE Verified 05/02/17 14:36 OPPOSITE EFFECT Review of Systems ROS Statement: Those systems with pertinent positive or pertinent negative responses have been documented in the HPI. ROS Other: All systems not noted in ROS Statement are negative. Past Medical History Past Medical History: Atrial Fibrillation, Coronary Artery Disease (CAD), CVA/ TIA, Hyperlipidemia, Pneumonia, Seizure Disorder Additional Past Medical History / Comment(s): FALLS, CONCUSSION, STROKE AFFECTED LT SIDE UNABLE TO USE LT ARM AND STATED FOOT DRAGS WHEN SHES TIRED- ONLY ABLE TO WALK SHORT DISTANCES USES PYRAMID CANE.VERTIGO,BRONCHITIS RECENTLY ON ABX FOR IT.STATED HAD A PNE VACCINE LESS THEN 5 YEARS AGO.NOT SURE OF DATE. 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" Past Anesthesia/Blood Transfusion Reactions: No Reported Reaction Past Psychological History: Depression Smoking Status: Never smoker Past Alcohol Use History: None Reported Past Drug Use History: None Reported - Past Family History Father Family Medical History: Cancer Additional Family Medical History / Comment(s): BRAIN AND LUNG CANCER Mother Family Medical History: Unable to Obtain Additional Family Medical History / Comment(s): PT COULDN'T REMEMBER WHAT MOM FROM General Exam - General Exam Comments Initial Comments: General: The patient is awake and alert, in no distress, and does not appear acutely ill. Neck: The neck is supple, there is no tenderness or JVD. Cardiovascular: There is a regular rate and rhythm. No murmur, rub or gallop is appreciated. Respiratory: Lungs are clear to auscultation, respirations are non-labored, breath sounds are equal. No wheezes, stridor, rales, or rhonchi. Musculoskeletal: Patient does have moderate swelling and bruising yellow purple in color to the left humerus area. She has some mild tenderness of the anterior and superior aspects of the left shoulder. Locally tender over the humerus bone. No tenderness to the elbow or forearm. Pulses are equal bilaterally 2+. Neurological: A&O x 3. CN II-XII intact, There are no obvious motor or sensory deficits. Coordination appears grossly intact. Speech is normal. Skin: Skin is warm and dry and no rashes or lesions are noted. Psychiatric: Normal mood and affect. Limitations: no limitations Course Vital Signs 05/02/17 14:34 Temperature 98.6 F Pulse Rate 71 Respiratory 18 Rate Blood Pressure 163/70 O2 Sat by Pulse 96 Oximetry Medical Decision Making - Medical Decision Making Patient's labs been reviewed shows INR 3.5. Stable hemoglobin. Patient advised to hold her Coumadin the next 2 days and have a recheck this Sunday. Patient's x-rays do show a new humerus fracture. There is redemonstration of old fractures along with a subluxed humeral head. Patient does admit that she dislocated over a year ago they never relocated as she has a history of a stroke on the side limited use of the arm. At this time patient will be placed in an arm sling and advised to follow-up with both family doctor for repeat INR in her orthopedic physician. [facility]. Case was discussed with attending physician Dr. Cárdenas. - Lab Data Result diagrams: 05/02/17 15:09 Lab Results 05/02/17 05/02/17 Range/Units 15:09 15:09 WBC 4.7 (3.8-10.6) k/uL RBC 3.09 L (3.80-5.40) m/uL Hgb 9.8 L (11.4-16.0) gm/dL Hct 31.1 L (34.0-46.0) % MCV 100.4 H (80.0-100.0) fL MCH 31.7 (25.0-35.0) pg MCHC 31.6 (31.0-37.0) g/dL RDW 14.4 (11.5-15.5) % Plt Count 202 (150-450) k/uL Neutrophils % 72 % Lymphocytes % 15 % Monocytes % 7 % Eosinophils % 4 % Basophils % 0 % Neutrophils # 3.4 (1.3-7.7) k/uL Lymphocytes # 0.7 L (1.0-4.8) k/uL Monocytes # 0.3 (0-1.0) k/uL Eosinophils # 0.2 (0-0.7) k/uL Basophils # 0.0 (0-0.2) k/uL Hypochromasia Slight Macrocytosis Slight PT 31.6 H (9.0-12.0) sec INR 3.5 H (<1.2) Disposition Clinical Impression: Fracture, humerus closed, Chronic dislocation of left shoulder Disposition: HOME SELF-CARE Condition: Good Instructions: Proximal Humerus Fracture (ED) Additional Instructions: Please use arm sling when up and moving around. Please ice the affected areas. Please hold Coumadin for the next 2 days and have INR rechecked on Sunday. Please follow-up with orthopedic doctor as discussed. Please return to emergency room if the symptoms increase or worsen or for any other concerns. Referrals: Melody Arce DO [Primary Care Provider] - 1-2 days Corbin Medina DO [Doctor of Osteopathic Medicine] - 1-2 days Time of Disposition: 16:43
--- NOTE | 2017-05-02 15:55 | XR ---
Left shoulder HISTORY: Trauma and pain 3 views of the left shoulder correlated to prior left humerus 10/08/2016 Cortical thickening in the proximal diaphyseal left humerus is stable. Bone mineralization is reduced . There is a fracture through the surgical neck of the proximal left humerus with impaction. Suspect there is associated subluxation. Distal clavicle shows an irregular appearance as on prior exam, senior policy advisor odette finding. Patient is post median sternotomy. Heart is enlarged. IMPRESSION: Fracture through the proximal left humerus as described, there is associated subluxation. Cardiomegaly. Osteopenia. Postop change. Findings consistent with remote trauma.
[2017-05-02] MEDS ORDERED: MORPHINE SULFATE ER 30 MG TABLET PO STA (16:42)
--- NOTE | 2017-05-04 13:17 | XR ---
EXAMINATION TYPE: XR humerus LT, XR humerus LT DATE OF EXAM: 05/02/2017 CLINICAL HISTORY: Fall with subsequent left TECHNIQUE: Two views of the left humerus are obtained. COMPARISON: 10/08/2016 FINDINGS: There is redemonstration of anterior dislocation of the glenohumeral joint with the humeral head oriented anteriorly and inferiorly. Chronic callus fracture of the proximal humerus is seen. Ad ditionally acute fracture through the left humeral surgical neck that is transversely oriented compar vandana none comminuted and impacted is now present with approximately 9 mm of impaction. Diffuse overly ing soft tissue swelling is seen. There is also diffuse osseous demineralization. Moderate acromiocla vicular arthropathy and extensive glenohumeral arthropathy are noted. IMPRESSION: 1. Acute noncomminuted transversely oriented impaction fracture of the surgical neck of the left latrice [place] with persistent anterior dislocation. 2. Callused old healing left proximal humeral fracture, extensive glenohumeral arthropathy, moderate acromio clavicular arthropathy, and osseous demineralization.
== END 2017-05-02 17:03 | disposition home or self-care (01) ==
LOC: EC 14:29
DX: S42.302A Unspecified fracture of shaft of humerus, left arm, initial encounter for closed fracture (principal); S43.005A Unspecified dislocation of left shoulder joint, initial encounter; I25.10 Atherosclerotic heart disease of native coronary artery without angina pectoris; E78.5 Hyperlipidemia, unspecified; G40.909 Epilepsy, unspecified, not intractable, without status epilepticus; F32.9 Major depressive disorder, single episode, unspecified; I48.91 Unspecified atrial fibrillation; Z86.73 Personal history of transient ischemic attack (TIA), and cerebral infarction without residual deficits; Z95.2 Presence of prosthetic heart valve; Z95.5 Presence of coronary angioplasty implant and graft; Z79.891 Long term (current) use of opiate analgesic; Z79.899 Other long term (current) drug therapy; Z88.5 Allergy status to narcotic agent; Z88.8 Allergy status to other drugs, medicaments and biological substances; W06.XXXA Fall from bed, initial encounter
CPT/HCPCS: 36415; 85025; 85610; 99283

== ENCOUNTER 2017-07-24 12:55 | Observation (INO) | payer BC, MEDICARE ==
[2017-07-24] MEDS ORDERED: HYDROcodone/APAP 5-325MG 1 EACH TAB PO STA (13:24)
--- NOTE | 2017-07-24 13:28 | ED ---
Lower Extremity Injury HPI - General Chief Complaint: Extremity Injury, Lower Stated Complaint: Leg Pain Time Seen by Provider: 07/24/17 13:04 Source: patient, RN notes reviewed, old records reviewed Mode of arrival: EMS Limitations: no limitations - History of Present Illness Initial Comments: This Patient is a 67-year-old morbidly obese female chief complaint of right knee pain. She has history of stroke and chronic left-sided weakness. Patient states that today when she was getting up she was unable to bear weight over her right leg. Denies a specific injury. Patient's HMO spell. She denies any pain in the hip or foot or ankle. She states that she's had no other symptoms.Patient has history of A. fib, coronary artery disease, CVA, hyperlipidemia, seizure disorder. She is on Coumadin. Patient denies any recent fever, chills, shortness of breath, chest pain, back pain, abdominal pain, nausea vomiting, numbness or tingling, dysuria or hematuria, constipation or diarrhea, headaches or visual changes, or any other current symptoms - Related Data Home Medications Medication Instructions Recorded Confirmed Atorvastatin Calcium [Lipitor] 40 mg PO QAM 09/06/15 07/24/17 Digoxin [Digox] 125 mcg PO DAILY 09/06/15 07/24/17 Morphine Sulfate ER [Ms Contin] 30 mg PO Q12HR 09/06/15 07/24/17 Sertraline HCl 100 mg PO DAILY 09/06/15 07/24/17 Gabapentin 600 mg PO BID 09/13/15 07/24/17 Furosemide [Lasix] 40 mg PO BID 11/23/16 07/24/17 Spironolactone [Aldactone] 25 mg PO BID 11/23/16 07/24/17 levETIRAcetam 1,000 mg PO BID 11/23/16 07/24/17 Bumetanide [Bumex] 1 mg PO BID 07/24/17 07/24/17 Warfarin Sodium 5 mg PO HS 07/24/17 07/24/17 Previous Rx's Medication Instructions Recorded Metoprolol Tartrate [Lopressor] 25 mg PO BID #60 tab 09/20/15 Allergies Allergy/AdvReac Type Severity Reaction Status Date / Time codeine Allergy Chest Pain Verified 07/24/17 13:54 lorazepam [From Ativan] AdvReac GIVES THE Verified 07/24/17 13:54 OPPOSITE EFFECT Review of Systems ROS Statement: Those systems with pertinent positive or pertinent negative responses have been documented in the HPI. ROS Other: All systems not noted in ROS Statement are negative. Past Medical History Past Medical History: Atrial Fibrillation, Coronary Artery Disease (CAD), CVA/ TIA, Hyperlipidemia, Pneumonia, Seizure Disorder Additional Past Medical History / Comment(s): FALLS, CONCUSSION, STROKE AFFECTED LT SIDE UNABLE TO USE LT ARM AND STATED FOOT DRAGS WHEN SHES TIRED- ONLY ABLE TO WALK SHORT DISTANCES USES PYRAMID CANE.VERTIGO,BRONCHITIS RECENTLY ON ABX FOR IT.STATED HAD A PNE VACCINE LESS THEN 5 YEARS AGO.NOT SURE OF DATE. 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 Alert and oriented. Mild discomfort. Limitations: no limitations General appearance: alert, in no apparent distress Head exam: Present: atraumatic, normocephalic, normal inspection Eye exam: Present: normal appearance, PERRL, EOMI. Absent: scleral icterus, conjunctival injection, periorbital swelling ENT exam: Present: normal exam, mucous membranes moist Neck exam: Present: normal inspection. Absent: tenderness, meningismus, lymphadenopathy Respiratory exam: Present: normal lung sounds bilaterally. Absent: respiratory distress, wheezes, rales, rhonchi, stridor Cardiovascular Exam: Present: normal rhythm, irregular rhythm (Consistent with A. fib), normal heart sounds. Absent: regular rate, systolic murmur, diastolic murmur, rubs, gallop, clicks GI/Abdominal exam: Present: soft, normal bowel sounds. Absent: distended, tenderness, guarding, rebound, rigid Extremities exam: Present: normal inspection, full ROM, normal capillary refill , other (Patient has morbid obesity, shape reports pain with range of motion of the knee. Dorsalis pedis and posterior tibial Pulses obtained with Doppler ultrasound. Patient has no erythema of the leg. No posterior knee pain. She reports the pain is within the joint.). Absent: tenderness, pedal edema, joint swelling, calf tenderness Back exam: Present: normal inspection Neurological exam: Present: alert, oriented X3, CN II-XII intact Psychiatric exam: Present: normal affect, normal mood Skin exam: Present: warm Course Vital Signs 07/24/17 07/24/17 07/24/17 13:02 15:23 15:48 Temperature 99.0 F 98.8 F Pulse Rate 58 L 65 67 Respiratory 18 18 18 Rate Blood Pressure 168/77 159/69 113/55 O2 Sat by Pulse 94 L 96 94 L Oximetry Medical Decision Making - Medical Decision Making 67-year-old female with a history of stroke, left chronic weakness presents today with right knee pain and swelling. No trauma to cause pain. She reports she is unable to bear weight and ambulate because she has a chronic left-sided weakness and no pain on the right knee. Patient is morbidly obese. She did also state that she is not had her INR checked recently. I did check it is 2.0. Consistent with where she should be history of A. fib on warfarin. Patient will be admitted at this time. Dr. Hensley discussed the case with Dr. Alvarado has not. He except admission observation. - Lab Data Lab Results 07/24/17 Range/Units 13:43 PT 17.8 H (9.0-12.0) sec INR 2.0 H (<1.2) APTT 29.6 (22.0-30.0) sec - Radiology Data Radiology results: report reviewed No acute fracture dislocation. Os 2 arthritis with large suprapatellar bursal fluid collection. Correlate for internal derangement of the knee with MRI. Ultrasound was negative for DVT. The patient's complaint of right anterior knee. There is a complex fluid areas seen in the knee superior and inferior level midline measuring 8 cm x 5 cm x 2 cm. Edema channels are noted anteriorly at the popliteal fossa. Measure. Could be a Lopez cyst or popliteal fossa cyst. Disposition Clinical Impression: Right knee pain, Knee effusion, right, Left-sided weakness Disposition: ADMITTED IP TO THIS HOSP Condition: Stable Is patient prescribed a controlled substance at d/c from ED?: No When asked, does pt state using other controlled substances?: No If prescribed controlled substance>3 days was MAPS reviewed?: No If opioid is for acute pain is fill amount 7 days or less?: No If Rx opioid, was Start Talking consent form obtained?: No Referrals: Melody Arce DO [Primary Care Provider] - 1-2 days Time of Disposition: 16:20
--- NOTE | 2017-07-24 14:05 | XR ---
EXAMINATION TYPE: XR knee complete RT DATE OF EXAM: 07/24/2017 COMPARISON: NONE HISTORY: Pain TECHNIQUE: Four views are submitted. FINDINGS: Diffuse osteopenia. There is hypertrophic change and narrowing the joint space with evidence of chond rocalcinosis. Large suprapatellar bursal fluid collections seen. Osseous structures are intact. No a cute fracture seen. IMPRESSION: 1. No acute fracture or dislocation. 2. Osteoarthritis with large suprapatellar bursal fluid collection. Correlate for internal derangemen t of the knee with MRI.
[2017-07-24 14:15] LABS: Partial Thromboplastin Time 29.6 sec (22.0-30.0); Prothrombin Time 17.8 sec (9.0-12.0)
--- NOTE | 2017-07-24 15:13 | US ---
EXAMINATION TYPE: US venous doppler duplex LE RT DATE OF EXAM: 07/24/2017 2:52 PM COMPARISON: 10/21/2014 CLINICAL HISTORY: Pain. EC patient with right anterior knee pain; limited US exam due to very large b aguilar habitus SIDE PERFORMED: Right TECHNIQUE: The lower extremity deep venous system is examined utilizing real time linear array sonog jesús with graded compression, doppler sonography and color-flow sonography. VESSELS IMAGED: Common Femoral Vein Deep Femoral Vein Greater Saphenous Vein * Femoral Vein Popliteal Vein Small Saphenous Vein * Proximal Calf Veins (* superficial vessels) Right Leg: Negative for DVT as tech was able to assess. At patient's c/o right anterior knee pain co mplex fluid area is seen at knee superior to inferior level midline = 8.0 x 5.6 x 2.0cm. Edema channe ls are noted anteriorly at popliteal fossa. IMPRESSION: 1. Limited exam demonstrates no diagnostic evidence of DVT as visualized. 2. There is a complex fluid collection the popliteal fossa measuring 8 cm which could represent Lopez 's cyst or popliteal fossa cyst. Recommend follow-up MRI to exclude other etiologies.
[2017-07-24] MEDS ORDERED: MORPHINE SULFATE 2 MG/ML SYRINGE IVP STA (15:32)
[2017-07-24] MEDS ORDERED: ONDANSETRON 4 MG/2 ML VIAL IVP STA (15:32)
[2017-07-24] MEDS ORDERED: ACETAMINOPHEN TAB 325 MG TAB PO PRN (16:25)
[2017-07-24] MEDS ORDERED: IBUPROFEN 400 MG TAB PO PRN (16:25)
[2017-07-24] MEDS ORDERED: NALOXONE 0.4 MG/ML 1 ML VIAL IV PRN (16:25)
[2017-07-24] MEDS ORDERED: ONDANSETRON 4 MG/2 ML VIAL IVP PRN (16:25)
[2017-07-24 16:38] LABS: Basophils % (A) 0 %; Eosinophils # (A) 0.1 k/uL (0-0.7); Eosinophils % (A) 3 %; HCT 38.1 % (34.0-46.0); HGB 12.3 gm/dL (11.4-16.0); Lymphocytes # (A) 0.9 k/uL (1.0-4.8); Lymphocytes % (A) 19 %; MCH 32.1 pg (25.0-35.0); MCHC 32.2 g/dL (31.0-37.0); MCV 99.7 fL (80.0-100.0); Mean Platelet Volume 7.6; Monocytes # (A) 0.4 k/uL (0-1.0); Monocytes % (A) 9 %; Neutrophils # (A) 3.1 k/uL (1.3-7.7); Neutrophils % (A) 68 %; Platelet Count 124 k/uL (150-450); RBC 3.82 m/uL (3.80-5.40); RDW 14.2 % (11.5-15.5); WBC 4.6 k/uL (3.8-10.6)
[2017-07-24 16:55] LABS: ALT 27 U/L (9-52); AST 29 U/L (14-36); Albumin 3.8 g/dL (3.5-5.0); Alkaline Phosphatase 113 U/L (38-126); Anion Gap 11 mmol/L; Blood Urea Nitrogen 14 mg/dL (7-17); Calcium 8.9 mg/dL (8.4-10.2); Carbon Dioxide 29 mmol/L (22-30); Chloride 102 mmol/L (98-107); Glucose 105 mg/dL (74-99); Potassium 4.4 mmol/L (3.5-5.1); Sodium 142 mmol/L (137-145); Total Bilirubin 0.6 mg/dL (0.2-1.3); Total Protein 7.2 g/dL (6.3-8.2)
[2017-07-24] MEDS: HYDROcodone/APAP 5-325MG 1 EACH TAB PO PRN (17:57)
[2017-07-24] MEDS ORDERED: WARFARIN 5 MG TAB PO SCH (18:00)
[2017-07-24] MEDS ORDERED: POLYETHYLENE GLYCOL 3350 17 GM POWD.PACK PO PRN (18:31)
[2017-07-24] MEDS ORDERED: SENNOSIDES 8.6 MG TAB PO PRN (18:31)
[2017-07-24] MEDS: MORPHINE ORAL SOLN 10 MG/5 ML CUP PO PRN (18:56)
[2017-07-24] MEDS: SODIUM CHLORIDE 0.9% 1,000 ML IV SCH (18:57)
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
[2017-07-24] MEDS: MORPHINE SULFATE ER 30 MG TABLET PO SCH (20:48)
[2017-07-24] MEDS: levETIRAcetam 500 MG TAB PO SCH (20:49)
[2017-07-24] MEDS: GABAPENTIN 300 MG CAP PO SCH (20:49)
[2017-07-24] MEDS: BUMETANIDE 1 MG TAB PO SCH (20:49)
[2017-07-24] MEDS: SPIRONOLACTONE 25 MG TAB PO SCH (20:50)
[2017-07-24] MEDS: METOPROLOL TARTRATE 25 MG TAB PO SCH (20:50)
[2017-07-24] MEDS ORDERED: FUROSEMIDE 40 MG TAB PO SCH (21:00)
[2017-07-25] MEDS: KETOROLAC 30 MG/ML 1 ML VIAL IVP PRN ×3 (02:22→17:21)
[2017-07-25] MEDS: SODIUM CHLORIDE 0.9% 1,000 ML IV SCH ×2 (02:27→09:12)
[2017-07-25] MEDS: MORPHINE ORAL SOLN 10 MG/5 ML CUP PO PRN (03:09)
[2017-07-25 07:43] LABS: HCT 33.5 % (34.0-46.0); HGB 10.6 gm/dL (11.4-16.0); Hypochromasia Slight; MCH 31.8 pg (25.0-35.0); MCHC 31.6 g/dL (31.0-37.0); MCV 100.7 fL (80.0-100.0); Macrocytosis Slight; Mean Platelet Volume 7.5; Platelet Count 106 k/uL (150-450); RBC 3.32 m/uL (3.80-5.40); RDW 13.9 % (11.5-15.5); WBC 4.6 k/uL (3.8-10.6)
[2017-07-25 08:04] LABS: Anion Gap 9 mmol/L; Blood Urea Nitrogen 13 mg/dL (7-17); Calcium 8.3 mg/dL (8.4-10.2); Carbon Dioxide 30 mmol/L (22-30); Chloride 103 mmol/L (98-107); Glucose 95 mg/dL (74-99); Potassium 4.4 mmol/L (3.5-5.1); Sodium 142 mmol/L (137-145)
[2017-07-25 08:07] LABS: INR 2.9 (<1.2); Prothrombin Time 25.8 sec (9.0-12.0)
[2017-07-25] MEDS ORDERED: PANTOPRAZOLE 40 MG/10 ML VIAL IV SCH (09:00)
[2017-07-25] MEDS: MORPHINE SULFATE ER 30 MG TABLET PO SCH ×2 (09:11→20:14)
[2017-07-25] MEDS: levETIRAcetam 500 MG TAB PO SCH ×2 (09:11→20:15)
[2017-07-25] MEDS: SERTRALINE 100 MG TAB PO SCH (09:11)
[2017-07-25] MEDS: DIGOXIN 125 MCG TAB PO SCH (09:11)
[2017-07-25] MEDS: GABAPENTIN 300 MG CAP PO SCH ×2 (09:11→20:15)
[2017-07-25] MEDS: METOPROLOL TARTRATE 25 MG TAB PO SCH ×2 (09:11→20:15)
[2017-07-25] MEDS: ATORVASTATIN 40 MG TAB PO SCH (09:12)
[2017-07-25] MEDS: SPIRONOLACTONE 25 MG TAB PO SCH ×2 (09:12→20:15)
[2017-07-25] MEDS: BUMETANIDE 1 MG TAB PO SCH ×2 (09:12→20:15)
--- NOTE | 2017-07-25 10:08 | P.CNOR ---
History of Present Illness - [facility] Consult date: 07/25/17 Consult reason: joint pain History of present illness: Is a 67-year-old female who is evaluated today with regards to right knee pain. She was admitted to [facility] yesterday morning at with regards to increasing pain involving the right knee. Patient states that she woke up, tented to get out of bed and use the bathroom and had excruciating pain. She was brought to the emergency room for further evaluation. Imaging and lab tests were done. Images demonstrated arthritic changes. She has a history of a left-sided stroke, which has left weakness in both the upper and lower extremity. She usually utilizes a walker with ambulation. Due to the amount of pain and difficulty with ambulation, patient was admitted for further evaluation. Internal medicine was the admitting providers, her orthopedic service was on consult. Patient is evaluated today at bedside, she is resting comfortably. She notes no discomfort involving the left upper lower extremity, right upper extremity, new onset cervical, thoracic or lumbar pain. She denies any previous trauma. She notes pain over the anterior aspect of the knee, mainly with weightbearing. She denies any previous orthopedic surgeon involving the right lower extremity. Review of Systems Constitutional: Reports as per [facility] Past Medical History Past Medical History: Atrial Fibrillation, Coronary Artery Disease (CAD), CVA/ TIA, Hyperlipidemia, Pneumonia, Seizure Disorder Additional Past Medical History / Comment(s): FALLS, CONCUSSION, STROKE AFFECTED LT SIDE UNABLE TO USE LT ARM AND STATED FOOT DRAGS WHEN SHES TIRED- ONLY ABLE TO WALK SHORT DISTANCES USES PYRAMID CANE.VERTIGO. STATED HAD A PNE VACCINE LESS THEN 5 YEARS AGO.NOT SURE OF DATE. Left shoulder fracture 2015, 2017. 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 VALVE REPLACEMENT" Past Anesthesia/Blood Transfusion Reactions: No Reported Reaction Past Psychological History: Depression Additional Psychological History / Comment(s): PT STATED SHE FEELS A BIT DEPRESSED OVER HER MEDICAL PROBLEMS CURRENTLY BUT DENIES ANY THOUGHTS OF HARMING SELF.NO HOPELESSNESS. Smoking Status: Never smoker Past Alcohol Use History: None Reported Past Drug Use History: None Reported - Past Family History Father Family Medical History: Cancer Additional Family Medical History / Comment(s): BRAIN AND LUNG CANCER Mother Family Medical History: Coronary Artery Disease (CAD), Dementia Additional Family Medical History / Comment(s): PT COULDN'T REMEMBER WHAT MOM FROM Medications and Allergies Home Medications Medication Instructions Recorded Confirmed Type Atorvastatin Calcium [Lipitor] 40 mg PO QAM 09/06/15 07/24/17 History Digoxin [Digox] 125 mcg PO DAILY 09/06/15 07/24/17 History Morphine Sulfate ER [Ms Contin] 30 mg PO Q12HR 09/06/15 07/24/17 History Sertraline HCl 100 mg PO DAILY 09/06/15 07/24/17 History Gabapentin 600 mg PO BID 09/13/15 07/24/17 History Metoprolol Tartrate [Lopressor] 25 mg PO BID #60 tab 09/20/15 07/24/17 Rx Spironolactone [Aldactone] 25 mg PO BID 11/23/16 07/24/17 History levETIRAcetam 1,000 mg PO BID 11/23/16 07/24/17 History Aspirin [Adult Low Dose Aspirin EC] 81 mg PO DAILY 07/24/17 07/24/17 History Bumetanide [Bumex] 1 mg PO BID 07/24/17 07/24/17 History Cholecalciferol (Vitamin D3) 2,000 unit PO DAILY 07/24/17 07/24/17 History [Vitamin D3] Warfarin Sodium 5 mg PO HS 07/24/17 07/24/17 History Allergies Allergy/AdvReac Type Severity Reaction Status Date / Time codeine Allergy Chest Pain Verified 07/24/17 13:54 lorazepam [From Ativan] AdvReac GIVES THE Verified 07/24/17 13:54 OPPOSITE EFFECT Physical Examination Right lower extremity: Patient is morbidly obese No obvious open lesions visualized, no areas of erythema, difficult to appreciate an effusion She has tenderness with palpation along the medial and lateral joint line Patient is able to flex to about 65, this reproduces no significant discomfort Walker maneuver the hip reproduces no pain Plantar flexion, dorsiflexion, EHL, FHL are intact Sensory exam to light touch is intact, cap refills less than 3 seconds Results - Labs Labs: Abnormal Lab Results - Last 24 Hours (Table) 07/24/17 07/24/17 07/24/17 Range/Units 13:43 13:44 13:44 RBC (3.80-5.40) m/uL Hgb (11.4-16.0) gm/dL Hct (34.0-46.0) % MCV (80.0-100.0) fL Plt Count 124 L (150-450) k/uL Lymphocytes # 0.9 L (1.0-4.8) k/uL PT 17.8 H (9.0-12.0) sec INR 2.0 H (<1.2) Glucose 105 H (74-99) mg/dL Calcium (8.4-10.2) mg/dL 07/25/17 07/25/17 07/25/17 Range/Units 06:55 06:55 06:55 RBC 3.32 L (3.80-5.40) m/uL Hgb 10.6 L (11.4-16.0) gm/dL Hct 33.5 L (34.0-46.0) % MCV 100.7 H (80.0-100.0) fL Plt Count 106 L (150-450) k/uL Lymphocytes # (1.0-4.8) k/uL PT 25.8 H (9.0-12.0) sec INR 2.9 H (<1.2) Glucose (74-99) mg/dL Calcium 8.3 L (8.4-10.2) mg/dL H & H 07/24/17 07/25/17 Range/Units 13:44 06:55 Hgb 12.3 10.6 L (11.4-16.0) gm/dL Hct 38.1 33.5 L (34.0-46.0) % Coagulation 07/24/17 07/25/17 Range/Units 13:43 06:55 INR 2.0 H 2.9 H (<1.2) Result Diagrams: 07/25/17 06:55 07/25/17 06:55 - Diagnostic results Knee x-ray: report reviewed, image reviewed Assessment and Plan Plan: Imaging: Multiple views of the right knee were obtained, these were not standing films. Images demonstrate moderate to severe arthritic changes, medial and lateral joint line narrowing, multiple osteophytes present. Assessment: Right knee pain Right knee osteoarthritis exacerbation Morbid obesity Multiple medical comorbidities Plan: I was able to discuss the case, including the physical exam findings and imaging studies my tendon Dr. Calles. No orthopedic surgical intervention needed at this time. Recommend medical management and conservative measures, including icing and elevating. Recommend use of an anti-inflammatory, patient was to okay this with his internal medicine and cardiology due to her other medications Weight-bear as tolerated with a walker I did review the ultrasound results, there is question of a prepatellar bursitis , I do not appreciate that on my exam at this time, to reevaluate if symptoms continue Medical recommendations We'll be available for any further questions regarding this patient Time with Patient: Less than 30
[2017-07-25] MEDS: HYDROcodone/APAP 5-325MG 1 EACH TAB PO PRN (14:03)
--- NOTE | 2017-07-25 16:43 | P.PN ---
Subjective 67-year-old admitted with the right suprapatellar bursitis with significant improvement in symptoms with nonsteroidal anti-inflammatory medications. PT and OT evaluated the patient is recommending subacute rehabilitation. Awaiting insurance prior authorization. Patient will be discharged nonsteroidal anti- inflammatory medications once insurance approves her to go to a subacute rehab Constitutional: Denied any fatigue denied any fever. Cardio vascular: denied any chest pain, palpitations Gastrointestinal denied any nausea vomiting Pulmonary: Denied any shortness of breath cough Neurologic denied any new focal deficits Objective - Vital Signs Vital signs: Vital Signs Temp 98.7 F 07/25/17 14:48 Pulse 60 07/25/17 14:48 Resp 18 07/25/17 14:48 BP 92/46 07/25/17 14:48 Pulse Ox 88 L 07/25/17 14:48 Intake & Output 07/24/17 07/25/17 07/25/17 18:59 06:59 18:59 Intake Total 1740 977 Balance 1740 977 Weight 110.223 kg Intake: Intake, IV Titration 1440 Amount Sodium Chloride 0.9% 1, 1440 000 ml @ 120 mls/hr IV . Q8H20M REPLACED BY [facility] Rx#:[id number] Oral 300 977 Other: Voiding Method Bedpan Bedpan Diaper Diaper # Voids 2 1 - Exam PHYSICAL EXAMINATION: GENERAL: The patient is alert and oriented x3, not in any acute distress. Morbidly obese HEENT: Pupils are round and equally reacting to light. EOMI. No scleral icterus. No conjunctival pallor. Normocephalic, atraumatic. No pharyngeal erythema. No thyromegaly. CARDIOVASCULAR: S1 and S2 present. No murmurs, rubs, or gallops. PULMONARY: Chest is clear to auscultation, no wheezing or crackles. ABDOMEN: Soft, nontender, nondistended, normoactive bowel sounds. No palpable organomegaly. MUSCULOSKELETAL: Patient does have severe pain in the right knee but I am not able to appreciate suprapatellar bursa and bursitis clinically active and passive movements of the right knee is restricted. EXTREMITIES: No cyanosis, clubbing, or pedal edema. NEUROLOGICAL: Patient does have chronic weakness in the left side without any acute weakness . SKIN: No rashes. - Labs CBC & Chem 7: 07/25/17 06:55 07/25/17 06:55 Labs: Abnormal Lab Results - Last 24 Hours (Table) 07/24/17 07/24/17 07/25/17 Range/Units 13:44 13:44 06:55 RBC 3.32 L (3.80-5.40) m/uL Hgb 10.6 L (11.4-16.0) gm/dL Hct 33.5 L (34.0-46.0) % MCV 100.7 H (80.0-100.0) fL Plt Count 124 L 106 L (150-450) k/uL Lymphocytes # 0.9 L (1.0-4.8) k/uL PT (9.0-12.0) sec INR (<1.2) Glucose 105 H (74-99) mg/dL Calcium (8.4-10.2) mg/dL 07/25/17 07/25/17 Range/Units 06:55 06:55 RBC (3.80-5.40) m/uL Hgb (11.4-16.0) gm/dL Hct (34.0-46.0) % MCV (80.0-100.0) fL Plt Count (150-450) k/uL Lymphocytes # (1.0-4.8) k/uL PT 25.8 H (9.0-12.0) sec INR 2.9 H (<1.2) Glucose (74-99) mg/dL Calcium 8.3 L (8.4-10.2) mg/dL Assessment and Plan Plan: -Right knee pain: Secondary to suprapatellar bursitis, anti-inflammatories will be continued orthopedic surgery evaluated the patient and PT and OT evaluated the patient and further management as mentioned above -Atrial fibrillation: Presently rate controlled patient will be resumed on home medications along with anticoagulation INR is therapeutic Coumadin will be continued but at a low dose as her INR went up to 2.9 and repeat INR tomorrow -Hyperlipidemia -Coronary disease -Seizure disorder -Morbid obesity -Depression For above-mentioned chronic cortical problems patient will be resumed on appropriate home medications.
[2017-07-25] MEDS ORDERED: WARFARIN 2 MG TAB PO SCH (18:00)
[2017-07-26] MEDS ORDERED: PANTOPRAZOLE 40 MG TABLET PO SCH (07:30)
[2017-07-26 07:32] LABS: INR 3.2 (<1.2); Prothrombin Time 28.8 sec (9.0-12.0)
[2017-07-26] MEDS: DIGOXIN 125 MCG TAB PO SCH (09:53)
[2017-07-26] MEDS: GABAPENTIN 300 MG CAP PO SCH (09:53)
[2017-07-26] MEDS: BUMETANIDE 1 MG TAB PO SCH (09:53)
[2017-07-26] MEDS: levETIRAcetam 500 MG TAB PO SCH (09:53)
[2017-07-26] MEDS: ATORVASTATIN 40 MG TAB PO SCH (09:53)
[2017-07-26] MEDS: SERTRALINE 100 MG TAB PO SCH (09:54)
[2017-07-26] MEDS: METOPROLOL TARTRATE 25 MG TAB PO SCH (09:54)
[2017-07-26] MEDS: SPIRONOLACTONE 25 MG TAB PO SCH (09:54)
[2017-07-26] MEDS: MORPHINE SULFATE ER 30 MG TABLET PO SCH (10:03)
[2017-07-26 10:21] VITALS: RESP 16
[2017-07-26] MEDS: HYDROcodone/APAP 5-325MG 1 EACH TAB PO PRN (12:04)
[2017-07-26] MEDS: KETOROLAC 30 MG/ML 1 ML VIAL IVP PRN (12:53)
[2017-07-26 14:57] VITALS: BP 117/69; PULSE 73; TEMP 97.2
--- NOTE | 2017-07-26 15:10 | P.DS ---
Providers Date of admission: 07/24/17 16:21 Expected date of discharge: 07/26/17 Attending physician: Kalen Bustamante Consults: 07/24/17 16:25 Consult Physician Stat Consulting Provider: Dax Calles Consult Reason/Comments: R Knee effusion Do you want consulting provider notified?: Yes, Notify in am Primary care physician: Melody Arce Hospital Course: Final Diagnoses -Right knee pain: Secondary to suprapatellar bursitis, anti-inflammatories will be continued orthopedic surgery evaluated the patient and PT and OT evaluated the patient -Atrial fibrillation: Presently rate controlled patient will be resumed on home medications along with anticoagulation INR is therapeutic Coumadin will be continued but at a low dose as her INR went up 3.2, hold coumadin tonight, repeat INR tomorrow. -Hyperlipidemia -Coronary disease -Seizure disorder -Morbid obesity -Depression Hospital course: This is a 67-year-old admitted with the right suprapatellar bursitis with significant improvement in symptoms with nonsteroidal anti- inflammatory medications. PT and OT evaluated the patient is recommending subacute rehabilitation. Cleared by orthopedics for discharge. Patient is being discharged to [facility] in a stable condition with guarded prognosis. PHYSICAL EXAMINATION: GENERAL: The patient is alert and oriented x3, not in any acute distress. Morbidly obese CARDIOVASCULAR: S1 and S2 present. No murmurs, rubs, or gallops. PULMONARY: Chest is clear to auscultation, no wheezing or crackles. ABDOMEN: Soft, nontender, nondistended, normoactive bowel sounds. No palpable organomegaly. MUSCULOSKELETAL: Patient does have severe pain in the right knee but I am not able to appreciate suprapatellar bursa and bursitis clinically active and passive movements of the right knee is restricted. NEUROLOGICAL: Patient does have chronic weakness in the left side without any acute weakness . The impression and plan of care has been dictated as directed. : I performed a history and examination of this patient, discussed the same with the dictator. I agree with the dictator's note ,documented as a scribe. Any additional findings or plans will be noted. Time taken: 35 minutes Patient Condition at Discharge: Stable Plan - Discharge Summary Discharge Rx Participant: No New Discharge Prescriptions: New Etodolac [Lodine] 300 mg PO TID #21 capsule Pantoprazole [Protonix] 40 mg PO AC-BRKFST tablet. Polyethylene Glycol 3350 [Miralax] 17 gm PO DAILY PRN powd.pack PRN Reason: Constipation Sennosides [Senokot] 8.6 mg PO DAILY PRN tab PRN Reason: Constipation Warfarin Sodium [Coumadin] 3 mg PO HS #1 tab Continue Digoxin [Digox] 125 mcg PO DAILY Sertraline HCl 100 mg PO DAILY Atorvastatin Calcium [Lipitor] 40 mg PO QAM Gabapentin 600 mg PO BID Metoprolol Tartrate [Lopressor] 25 mg PO BID #60 tab levETIRAcetam 1,000 mg PO BID Spironolactone [Aldactone] 25 mg PO BID Bumetanide [BUMEX] 1 mg PO BID Cholecalciferol (Vitamin D3) [Vitamin D3] 2,000 unit PO DAILY Aspirin [Adult Low Dose Aspirin EC] 81 mg PO DAILY Morphine Sulfate ER [Ms Contin] 30 mg PO Q12HR #6 tablet Discontinued Warfarin Sodium 5 mg PO HS Discharge Medication List Atorvastatin Calcium [Lipitor] 40 mg PO QAM 09/06/15 [History] Digoxin [Digox] 125 mcg PO DAILY 09/06/15 [History] Sertraline HCl 100 mg PO DAILY 09/06/15 [History] Gabapentin 600 mg PO BID 09/13/15 [History] Metoprolol Tartrate [Lopressor] 25 mg PO BID #60 tab 09/20/15 [Rx] Spironolactone [Aldactone] 25 mg PO BID 11/23/16 [History] levETIRAcetam 1,000 mg PO BID 11/23/16 [History] Aspirin [Adult Low Dose Aspirin EC] 81 mg PO DAILY 07/24/17 [History] Bumetanide [BUMEX] 1 mg PO BID 07/24/17 [History] Cholecalciferol (Vitamin D3) [Vitamin D3] 2,000 unit PO DAILY 07/24/17 [History] Etodolac [Lodine] 300 mg PO TID #21 capsule 07/26/17 [Rx] Morphine Sulfate ER [Ms Contin] 30 mg PO Q12HR #6 tablet 07/26/17 [Rx] Pantoprazole [Protonix] 40 mg PO AC-BRKFST tablet. 07/26/17 [Rx] Polyethylene Glycol 3350 [Miralax] 17 gm PO DAILY PRN powd.pack 07/26/17 [Rx] Sennosides [Senokot] 8.6 mg PO DAILY PRN tab 07/26/17 [Rx] Warfarin Sodium [Coumadin] 3 mg PO HS #1 tab 07/26/17 [Rx] Follow up Appointment(s)/Referral(s): Kale Zapata MD [REFERRING] - 3 Days (While at subacute rehab) Melody Arce DO [Primary Care Provider] - 1 Week (After DC from subacute rehab ) Dax Calles DO [Doctor of Osteopathic Medicine] - As Needed [facility] [NON[facility]FF[facility] - Ambulatory/Diagnostic Orders: Prothrombin Time INR [LAB.AMB] Time Frame: 07/27/17, Location: Determined By Patient Activity/Diet/Wound Care/Special Instructions: Daily PT/INR. CBC, BMP in 3 days. * no coumdain tonight, resume coumadin 3 mg tomorrow.* Diet: Coumadin diet Activity: As tolerated with walker as per orthopedics Discharge Disposition: TRANSFER TO SNF/ECF
== END 2017-07-26 16:20 ==
LOC: EC 12:55 → 3SUR 16:21
PROVIDERS: ADMIT Internal Medicine; ATTEND Internal Medicine
DX: M70.41 Prepatellar bursitis, right knee (principal); E78.5 Hyperlipidemia, unspecified; E66.01 Morbid (severe) obesity due to excess calories; F32.9 Major depressive disorder, single episode, unspecified; G40.909 Epilepsy, unspecified, not intractable, without status epilepticus; I25.10 Atherosclerotic heart disease of native coronary artery without angina pectoris; I48.91 Unspecified atrial fibrillation; Z68.39 Body mass index [BMI] 39.0-39.9, adult; M17.11 Unilateral primary osteoarthritis, right knee; Z79.01 Long term (current) use of anticoagulants; Z79.82 Long term (current) use of aspirin; Z79.899 Other long term (current) drug therapy; Z80.1 Family history of malignant neoplasm of trachea, bronchus and lung; Z82.49 Family history of ischemic heart disease and other diseases of the circulatory system; Z86.73 Personal history of transient ischemic attack (TIA), and cerebral infarction without residual deficits; Z95.2 Presence of prosthetic heart valve; Z98.51 Tubal ligation status; Z90.49 Acquired absence of other specified parts of digestive tract
CPT/HCPCS: 96376 ×2; 96361; 96375 ×2; 96374; 99284; 36415; 97530; 97162; 97535; 97166; 80053; 80048; 85025; 85027; 85610 ×3; 85730; 73562; 93971; G0378 ×3; J2405; J1885 ×2; J2270; C9113

== ENCOUNTER 2017-08-31 21:07 | Inpatient (IN) | payer MEDICARE ==
[2017-08-31] MEDS ORDERED: SODIUM CHLORIDE 0.9% 500 ML IV STA (22:03)
[2017-08-31] MEDS ORDERED: SODIUM CHLORIDE 0.9% 1,000 ML IV STA (22:03)
[2017-08-31 23:11] LABS: Appearance,Urine Clear (Clear); Bilirubin,Urine 1+ (Negative); Blood,Urine Negative (Negative); Color,Urine Yellow; Glucose,Urine (UA) Negative (Negative); Ketones,Urine Negative (Negative); Leukocyte Esterase,Urine Negative (Negative); Nitrite,Urine Negative (Negative); PH, Urine 8.5 (5.0-8.0); Protein,Urine Negative (Negative); Specific Gravity,Urine 1.012 (1.001-1.035)
[2017-08-31 23:16] LABS: INR 4.8 (<1.2); Prothrombin Time 43.4 sec (9.0-12.0)
[2017-08-31 23:17] LABS: Basophils % (A) 0 %; Eosinophils # (A) 0.1 k/uL (0-0.7); Eosinophils % (A) 1 %; HCT 39.8 % (34.0-46.0); HGB 9.3 gm/dL (11.4-16.0); Lymphocytes # (A) 0.7 k/uL (1.0-4.8); Lymphocytes % (A) 11 %; MCH 22.7 pg (25.0-35.0); MCHC 23.4 g/dL (31.0-37.0); MCV 96.9 fL (80.0-100.0); Mean Platelet Volume 6.5; Monocytes # (A) 0.6 k/uL (0-1.0); Monocytes % (A) 9 %; Neutrophils # (A) 4.8 k/uL (1.3-7.7); Neutrophils % (A) 76 %; RBC 4.11 m/uL (3.80-5.40); RDW 14.5 % (11.5-15.5); WBC 6.3 k/uL (3.8-10.6)
[2017-08-31 23:19] LABS: Platelet Count 189 k/uL (150-450)
[2017-08-31 23:23] LABS: Calcium 9.2 mg/dL (8.4-10.2); Potassium 4.2 mmol/L (3.5-5.1); Total Bilirubin 1.1 mg/dL (0.2-1.3); Total Protein 7.7 g/dL (6.3-8.2)
[2017-08-31 23:26] LABS: Creatine Kinase 58 U/L (30-135)
[2017-08-31 23:40] LABS: Creatine Kinase MB <0.2 ng/mL (0.0-2.4); Troponin I 0.013 ng/mL (0.000-0.034)
[2017-08-31] MEDS ORDERED: SODIUM CHLORIDE 0.9% 1,000 ML IV ONE (23:44)
[2017-08-31] MEDS ORDERED: cefTRIAXone 2,000 MG in SODIUM CHLORIDE 0.9% 100 ML IVPB STA (23:45)
[2017-08-31] MEDS ORDERED: cefTRIAXone IN SWFI 2,000 MG/20 ML SYRINGE IVP ONE (23:45)
[2017-09-01] MEDS: SODIUM CHLORIDE 0.9% 1,000 ML IV SCH ×3 (00:09→21:51)
--- NOTE | 2017-09-01 00:12 | ED ---
General Adult HPI - General Chief complaint: Extremity Problem,Nontraumatic Stated complaint: Weakness Time Seen by Provider: 08/31/17 21:46 Source: patient, family, EMS Mode of arrival: EMS Limitations: no limitations - History of Present Illness Initial comments: 67 years old female was in a [facility] for 3 weeks for rehab she was discharged home 2 days ago she comes back now feeling well complaining about the right kidney pain she said she'll hard time ambulating and she feels tired and weak. She denies any headache no chest pain no shortness of breath no abdominal pain no frequency urgency dysuria right leg is swollen and there is a pain behind the right knee she said she'll hard time ambulating and bearing weight. 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 is compromising her ability to ambulate safely - Related Data Home Medications Medication Instructions Recorded Confirmed Atorvastatin Calcium [Lipitor] 40 mg PO QAM 09/06/15 08/31/17 Digoxin [Digox] 125 mcg PO DAILY 09/06/15 08/31/17 Sertraline HCl 100 mg PO DAILY 09/06/15 08/31/17 Gabapentin 600 mg PO BID 09/13/15 08/31/17 Spironolactone [Aldactone] 25 mg PO BID 11/23/16 08/31/17 levETIRAcetam 1,000 mg PO BID 11/23/16 08/31/17 Aspirin [Adult Low Dose Aspirin EC] 81 mg PO DAILY 07/24/17 08/31/17 Bumetanide [BUMEX] 1 mg PO BID 07/24/17 08/31/17 Cholecalciferol [Vitamin D3] 5,000 unit PO DAILY 08/31/17 08/31/17 Potassium 99 mg PO DAILY 08/31/17 08/31/17 Warfarin [Coumadin] 5 mg PO DAILY 08/31/17 08/31/17 Previous Rx's Medication Instructions Recorded Metoprolol Tartrate [Lopressor] 25 mg PO BID #60 tab 09/20/15 Morphine Sulfate ER [Ms Contin] 30 mg PO Q12HR #6 tablet 07/26/17 Allergies Allergy/AdvReac Type Severity Reaction Status Date / Time codeine Allergy Chest Pain Verified 08/31/17 22:27 lorazepam [From Ativan] AdvReac GIVES THE Verified 08/31/17 22:27 OPPOSITE EFFECT Review of Systems ROS Statement: Those systems with pertinent positive or pertinent negative responses have been documented in the HPI. ROS Other: All systems not noted in ROS Statement are negative. Past Medical History Past Medical History: Atrial Fibrillation, Coronary Artery Disease (CAD), CVA/ TIA, Hyperlipidemia, Pneumonia, Seizure Disorder Additional Past Medical History / Comment(s): FALLS, CONCUSSION, STROKE AFFECTED LT SIDE UNABLE TO USE LT ARM AND STATED FOOT DRAGS WHEN SHES TIRED- ONLY ABLE TO WALK SHORT DISTANCES USES PYRAMID CANE.VERTIGO. STATED HAD A PNE VACCINE LESS THEN 5 YEARS AGO.NOT SURE OF DATE. Left shoulder fracture 2016, 2018. 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 VALVE REPLACEMENT" Past Anesthesia/Blood Transfusion Reactions: No Reported Reaction Past Psychological History: Depression Smoking Status: Never smoker Past Alcohol Use History: None Reported Past Drug Use History: None Reported - Past Family History Father Family Medical History: Cancer Additional Family Medical History / Comment(s): BRAIN AND LUNG CANCER Mother Family Medical History: Coronary Artery Disease (CAD), Dementia Additional Family Medical History / Comment(s): PT COULDN'T REMEMBER WHAT MOM FROM General Exam Limitations: no limitations Course Vital Signs 08/31/17 08/31/17 09/01/17 21:38 23:12 01:15 Temperature 98.3 F Pulse Rate 75 Pulse Rate [ 67 Right Sitting Pulse Oximetery ] Pulse Rate [ 71 Right Supine Pulse Oximetery ] Respiratory 18 18 Rate Blood Pressure 123/58 Blood Pressure 123/55 [Right Arm Sitting] Blood Pressure 121/53 [Right Arm Supine] O2 Sat by Pulse 96 Oximetry little after the midnight venous Doppler is still pending chest x-ray as well as knee x-ray,will do the disposition as soon as all this is done. Abdomen, and DVT study was normal for the right leg chest x-rays unremarkable mild cardiomegaly noticed I right knee x-rays unremarkable as well did show some degenerative changes INR is 4.8 lactate is 2.3 with a blood cultures and urine culture as well troponin is normal EKG showed some PVCs H level was ordered urinalysis is normal lactate was 2.3 INR is high broken hold the Coumadin dose lactate is 2.3 no obvious source of infection though urine and blood cultures are have been done and considering she states has 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 and the right leg she can ambulate weight she is requesting admission, be admitted to Dr. Ojeda service EKG Findings - EKG Comments: EKG Findings:: EKG is atrial fibrillation with PVCs ventricular rate of 71 QRS duration is 98 QT/QTc is 488/5:30 review of this EKG shows quite a few people is an artifact no clear ST elevation noticed in this EKG Medical Decision Making - Lab Data Result diagrams: 08/31/17 22:50 08/31/17 22:50 Lab Results 08/31/17 08/31/17 08/31/17 Range/Units 22:50 22:50 22:50 WBC (3.8-10.6) k/uL RBC (3.80-5.40) m/uL Hgb (11.4-16.0) gm/dL Hct (34.0-46.0) % MCV (80.0-100.0) fL MCH (25.0-35.0) pg MCHC (31.0-37.0) g/dL RDW (11.5-15.5) % Plt Count (150-450) k/uL Neutrophils % % Lymphocytes % % Monocytes % % Eosinophils % % Basophils % % Neutrophils # (1.3-7.7) k/uL Lymphocytes # (1.0-4.8) k/uL Monocytes # (0-1.0) k/uL Eosinophils # (0-0.7) k/uL Basophils # (0-0.2) k/uL PT 43.4 H (9.0-12.0) sec INR 4.8 H (<1.2) Sodium (137-145) mmol/L Potassium (3.5-5.1) mmol/L Chloride (98-107) mmol/L Carbon Dioxide (22-30) mmol/L Anion Gap mmol/L BUN (7-17) mg/dL Creatinine (0.52-1.04) mg/dL Est GFR (CKD-EPI)AfAm (>60 ml/min/1.73 sqM) Est GFR (CKD-EPI)NonAf (>60 ml/min/1.73 sqM) Glucose (74-99) mg/dL Plasma Lactic Acid Elliott (0.7-2.0) mmol/L Calcium (8.4-10.2) mg/dL Total Bilirubin (0.2-1.3) mg/dL AST (14-36) U/L ALT (9-52) U/L Alkaline Phosphatase (38-126) U/L Total Creatine Kinase 58 (30-135) U/L CK-MB (CK-2) <0.2 (0.0-2.4) ng/mL CK-MB (CK-2) Rel Index Troponin I 0.013 (0.000-0.034) ng/mL Total Protein (6.3-8.2) g/dL Albumin (3.5-5.0) g/dL Urine Color Yellow Urine Appearance Clear (Clear) Urine pH 8.5 H (5.0-8.0) Ur Specific Lyons 1.012 (1.001-1.035) Urine Protein Negative (Negative) Urine Glucose (UA) Negative (Negative) Urine Ketones Negative (Negative) Urine Blood Negative (Negative) Urine Nitrite Negative (Negative) Urine Bilirubin 1+ H (Negative) Urine Urobilinogen 4.0 (<2.0) mg/dL Ur Leukocyte Esterase Negative (Negative) 08/31/17 08/31/17 08/31/17 Range/Units 22:50 22:50 22:50 WBC 6.3 (3.8-10.6) k/uL RBC 4.11 (3.80-5.40) m/uL Hgb 9.3 L (11.4-16.0) gm/dL Hct 39.8 (34.0-46.0) % MCV 96.9 (80.0-100.0) fL MCH 22.7 L (25.0-35.0) pg MCHC 23.4 L (31.0-37.0) g/dL RDW 14.5 (11.5-15.5) % Plt Count 189 D (150-450) k/uL Neutrophils % 76 % Lymphocytes % 11 % Monocytes % 9 % Eosinophils % 1 % Basophils % 0 % Neutrophils # 4.8 (1.3-7.7) k/uL Lymphocytes # 0.7 L (1.0-4.8) k/uL Monocytes # 0.6 (0-1.0) k/uL Eosinophils # 0.1 (0-0.7) k/uL Basophils # 0.0 (0-0.2) k/uL PT (9.0-12.0) sec INR (<1.2) Sodium 139 (137-145) mmol/L Potassium 4.2 (3.5-5.1) mmol/L Chloride 95 L (98-107) mmol/L Carbon Dioxide 35 H (22-30) mmol/L Anion Gap 9 mmol/L BUN 29 H (7-17) mg/dL Creatinine 0.80 (0.52-1.04) mg/dL Est GFR (CKD-EPI)AfAm 90 (>60 ml/min/1.73 sqM) Est GFR (CKD-EPI)NonAf 78 (>60 ml/min/1.73 sqM) Glucose 117 H (74-99) mg/dL Plasma Lactic Acid Elliott 2.3 H* (0.7-2.0) mmol/L Calcium 9.2 (8.4-10.2) mg/dL Total Bilirubin 1.1 (0.2-1.3) mg/dL AST 51 H (14-36) U/L ALT 36 (9-52) U/L Alkaline Phosphatase 184 H (38-126) U/L Total Creatine Kinase (30-135) U/L CK-MB (CK-2) (0.0-2.4) ng/mL CK-MB (CK-2) Rel Index Troponin I (0.000-0.034) ng/mL Total Protein 7.7 (6.3-8.2) g/dL Albumin 4.0 (3.5-5.0) g/dL Urine Color Urine Appearance (Clear) Urine pH (5.0-8.0) Ur Specific Lyons (1.001-1.035) Urine Protein (Negative) Urine Glucose (UA) (Negative) Urine Ketones (Negative) Urine Blood (Negative) Urine Nitrite (Negative) Urine Bilirubin (Negative) Urine Urobilinogen (<2.0) mg/dL Ur Leukocyte Esterase (Negative) Disposition Clinical Impression: Right leg pain, Generalized weakness Disposition: ADMITTED IP TO THIS [facility] Condition: Good Referrals: [place],Melody, DO [Primary Care Provider] - 1-2 days
--- NOTE | 2017-09-01 00:44 | XR ---
EXAMINATION TYPE: XR chest 2V DATE OF EXAM: 09/01/2017 COMPARISON: 10/01/1716 HISTORY: Left-sided pain TECHNIQUE: Frontal and lateral views of the chest are obtained. FINDINGS: Heart is enlarged. There is no heart failure. There are sternal wires. There is no pleural effusion. There is old left humerus fracture. Lungs are clear of consolidation. IMPRESSION: Moderate cardiomegaly. No active cardiopulmonary disease. No change.
--- NOTE | 2017-09-01 00:45 | XR ---
EXAMINATION TYPE: XR knee complete RT DATE OF EXAM: 09/01/2017 COMPARISON: 07/24/2017 HISTORY: Knee pain TECHNIQUE: 3 views FINDINGS: There is spurring of the medial femoral and tibial condyles. I see no fracture nor dislocat ion. There is slight narrowing of the medial joint space. There is spurring on the patella. IMPRESSION: There is some osteoarthritis and chondrocalcinosis. No fracture. No change.
--- NOTE | 2017-09-01 01:06 | US ---
EXAMINATION TYPE: US venous doppler duplex LE RT DATE OF EXAM: 09/01/2017 12:51 AM COMPARISON: US CLINICAL HISTORY: Pain. SIDE PERFORMED: Right TECHNIQUE: The lower extremity deep venous system is examined utilizing real time linear array sonog jesús with graded compression, doppler sonography and color-flow sonography. VESSELS IMAGED: External Iliac Vein (EIV) Common Femoral Vein Deep Femoral Vein Greater Saphenous Vein * Femoral Vein Popliteal Vein Small Saphenous Vein * Proximal Calf Veins (* superficial vessels) Patient of large body habitus. Right Leg: Negative for DVT IMPRESSION: Negative exam. No evidence of deep venous thrombosis in the right leg.
[2017-09-01] MEDS ORDERED: ONDANSETRON 4 MG/2 ML VIAL IVP PRN (02:35)
[2017-09-01] MEDS ORDERED: NALOXONE 0.4 MG/ML 1 ML VIAL IV PRN (02:35)
[2017-09-01] MEDS: ACETAMINOPHEN TAB 325 MG TAB PO PRN (03:48)
[2017-09-01 08:41] LABS: INR 3.5 (<1.2); Prothrombin Time 31.7 sec (9.0-12.0)
[2017-09-01] MEDS ORDERED: NON-FORMULARY DRUG (Potassium [Potassium] 99 MG) PO SCH (09:00)
[2017-09-01] MEDS ORDERED: DIGOXIN 125 MCG TAB PO SCH (09:00)
[2017-09-01] MEDS: ASPIRIN 81 MG PO SCH (10:11)
[2017-09-01] MEDS: CHOLECALCIFEROL 1,000 UNIT TAB PO SCH (10:12)
[2017-09-01] MEDS: BUMETANIDE 1 MG TAB PO SCH ×2 (10:12→21:49)
[2017-09-01] MEDS: ATORVASTATIN 40 MG TAB PO SCH (10:12)
[2017-09-01] MEDS: GABAPENTIN 300 MG CAP PO SCH ×2 (10:14→21:49)
[2017-09-01] MEDS: METOPROLOL TARTRATE 25 MG TAB PO SCH ×2 (10:16→21:57)
[2017-09-01] MEDS: levETIRAcetam 500 MG TAB PO SCH ×2 (10:16→21:49)
[2017-09-01] MEDS: SPIRONOLACTONE 25 MG TAB PO SCH ×2 (10:17→21:49)
[2017-09-01] MEDS: SERTRALINE 100 MG TAB PO SCH (10:17)
[2017-09-01] MEDS: MORPHINE SULFATE ER 30 MG TABLET PO SCH ×2 (10:25→21:49)
[2017-09-01] MEDS ORDERED: VANCOMYCIN IV PER PHARMACY 1 EACH MISC MISCELLANE PRN (12:34)
[2017-09-01] MEDS ORDERED: VANCOMYCIN 1,500 MG in SODIUM CHLORIDE 0.9% 250 ML IVPB ONE (13:00)
--- NOTE | 2017-09-01 15:14 | P.HPIM ---
History of Present Illness H&P Date: 09/01/17 Chief Complaint: weakness and inability to walk 67 years old female was in [facility] 3 weeks for rehab she was discharged home 2 days ago she comes back now feeling well complaining about the right kidney pain she said she'll hard time ambulating and she feels tired and weak. She denies any headache no chest pain no shortness of breath no abdominal pain no frequency urgency dysuria right leg is swollen and there is a pain behind the right knee she said she'll hard time ambulating and bearing weight. 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 is compromising her ability to ambulate safely Abdomen, and DVT study was normal for the right leg chest x-rays unremarkable mild cardiomegaly noticed I right knee x-rays unremarkable as well did show some degenerative changes INR is 4.8 lactate is 2.3 with a blood cultures and urine culture as well troponin is normal EKG showed some PVCs H level was ordered urinalysis is normal lactate was 2.3 INR is high broken hold the Coumadin dose lactate is 2.3 no obvious source of infection though urine and blood cultures are have been done and considering she states has 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 and the right leg she can ambulate weight she is requesting admission Review of Systems Constitutional: Reports anorexia, Reports fatigue, Reports weakness Eyes: denies blurred vision Ears, nose, mouth and throat: Reports dysphagia, Reports sore throat Cardiovascular: Denies chest pain, Denies dyspnea on exertion, Denies palpitations Respiratory: Denies cough, Denies wheezing Gastrointestinal: Denies abdominal pain, Denies nausea, Denies vomiting Genitourinary: Denies dysuria, Denies hematuria, Denies nocturia Neurological: Reports weakness, Denies convulsions, Denies double vision, Denies hearing difficulties Past Medical History Past Medical History: Atrial Fibrillation, Coronary Artery Disease (CAD), CVA/ TIA, Hyperlipidemia, Pneumonia, Seizure Disorder Additional Past Medical History / Comment(s): FALLS, CONCUSSION, STROKE AFFECTED LT SIDE UNABLE TO USE LT ARM AND STATED FOOT DRAGS WHEN SHES TIRED- ONLY ABLE TO WALK SHORT DISTANCES USES PYRAMID CANE.VERTIGO. STATED HAD A PNE VACCINE LESS THEN 5 YEARS AGO.NOT SURE OF DATE. Left shoulder fracture 2015, 2018. 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 VALVE REPLACEMENT" Past Anesthesia/Blood Transfusion Reactions: No Reported Reaction Past Psychological History: Depression Additional Psychological History / Comment(s): PT STATED SHE FEELS A BIT DEPRESSED OVER HER MEDICAL PROBLEMS CURRENTLY BUT DENIES ANY THOUGHTS OF HARMING SELF.NO HOPELESSNESS. Smoking Status: Never smoker Past Alcohol Use History: None Reported Past Drug Use History: None Reported - Past Family History Father Family Medical History: Cancer Additional Family Medical History / Comment(s): BRAIN AND LUNG CANCER Mother Family Medical History: Coronary Artery Disease (CAD), Dementia Additional Family Medical History / Comment(s): PT COULDN'T REMEMBER WHAT MOM FROM Medications and Allergies Home Medications Medication Instructions Recorded Confirmed Type Atorvastatin Calcium [Lipitor] 40 mg PO QAM 09/06/15 08/31/17 History Digoxin [Digox] 125 mcg PO DAILY 09/06/15 08/31/17 History Sertraline HCl 100 mg PO DAILY 09/06/15 08/31/17 History Gabapentin 600 mg PO BID 09/13/15 08/31/17 History Metoprolol Tartrate [Lopressor] 25 mg PO BID #60 tab 09/20/15 08/31/17 Rx Spironolactone [Aldactone] 25 mg PO BID 11/23/16 08/31/17 History levETIRAcetam 1,000 mg PO BID 11/23/16 08/31/17 History Aspirin [Adult Low Dose Aspirin EC] 81 mg PO DAILY 07/24/17 08/31/17 History Bumetanide [BUMEX] 1 mg PO BID 07/24/17 08/31/17 History Morphine Sulfate ER [Ms Contin] 30 mg PO Q12HR #6 tablet 07/26/17 08/31/17 Rx Cholecalciferol [Vitamin D3] 5,000 unit PO DAILY 08/31/17 08/31/17 History Potassium 99 mg PO DAILY 08/31/17 08/31/17 History Warfarin [Coumadin] 5 mg PO DAILY 08/31/17 08/31/17 History Allergies Allergy/AdvReac Type Severity Reaction Status Date / Time codeine Allergy Chest Pain Verified 08/31/17 22:27 lorazepam [From Ativan] AdvReac GIVES THE Verified 08/31/17 22:27 OPPOSITE EFFECT Physical Exam Vitals: Vital Signs Temp Pulse Pulse Pulse Resp BP BP 09/01/17 07:00 97.9 F 50 L 16 108/62 09/01/17 04:00 67 71 09/01/17 03:06 98.8 F 68 16 120/55 09/01/17 01:15 67 71 123/55 08/31/17 23:12 18 08/31/17 21:38 98.3 F 75 18 123/58 BP Pulse Ox 09/01/17 07:00 96 09/01/17 04:00 09/01/17 03:06 94 L 09/01/17 01:15 121/53 08/31/17 23:12 08/31/17 21:38 96 Intake and Output 08/31/17 09/01/17 09/01/17 22:59 06:59 14:59 Intake Total 2298 Balance 2298 Intake: Intake, IV Titration 2298 Amount Sodium Chloride 0.9% 1, 300 000 ml @ 100 mls/hr IV . Q10H KEYA Rx#:[id number] Sodium Chloride 0.9% 1, 999 000 ml @ 999 mls/hr IV . Q1H1M ONE Rx#:[id number] Sodium Chloride 0.9% 500 999 ml @ 999 mls/hr IV .Q31M STA Rx#:[id number] Other: # Voids 1 Weight 112.945 kg 75 kg - Constitutional General appearance: Present: average body habitus, cooperative, no acute distress - EENT Eyes: Present: anicteric sclerae, EOMI, PERRLA, normal appearance ENT: Present: hearing grossly normal, normal oropharynx Ears: bilateral: normal - Neck Neck: Present: normal ROM. Absent: lymphadenopathy, rigidity, thyromegaly Carotids: negative: bruit present Thyroid: bilateral: normal size, negative: enlarged, nodule - Respiratory Respiratory: bilateral: CTA, negative: rales, rhonchi, wheezing - Cardiovascular Rhythm: regular Heart sounds: normal: S1, S2 Abnormal Heart Sounds: Absent: systolic murmur, diastolic murmur - Gastrointestinal General gastrointestinal: Present: normal bowel sounds, soft. Absent: distended , organomegaly, tenderness - Genitourinary Genitourinary Comment(s): deferred - Integumentary Integumentary: Present: normal turgor. Absent: jaundiced, rash, ulcer - Neurologic Neurologic: Present: CNII-XII intact. Absent: focal deficits - Musculoskeletal Musculoskeletal: Present: gait normal, strength equal bilaterally - Psychiatric Psychiatric: Present: A&O x's 3, appropriate affect, intact judgment & insight Results CBC & Chem 7: 08/31/17 22:50 08/31/17 22:50 Labs: Abnormal Lab Results - Last 24 Hours (Table) 08/31/17 08/31/17 08/31/17 Range/Units 22:50 22:50 22:50 Hgb 9.3 L (11.4-16.0) gm/dL MCH 22.7 L (25.0-35.0) pg MCHC 23.4 L (31.0-37.0) g/dL Lymphocytes # 0.7 L (1.0-4.8) k/uL PT 43.4 H (9.0-12.0) sec INR 4.8 H (<1.2) Chloride (98-107) mmol/L Carbon Dioxide (22-30) mmol/L BUN (7-17) mg/dL Glucose (74-99) mg/dL Plasma Lactic Acid Elliott (0.7-2.0) mmol/L AST (14-36) U/L Alkaline Phosphatase (38-126) U/L Urine pH 8.5 H (5.0-8.0) Urine Bilirubin 1+ H (Negative) 08/31/17 08/31/17 09/01/17 Range/Units 22:50 22:50 07:49 Hgb (11.4-16.0) gm/dL MCH (25.0-35.0) pg MCHC (31.0-37.0) g/dL Lymphocytes # (1.0-4.8) k/uL PT 31.7 H (9.0-12.0) sec INR 3.5 H (<1.2) Chloride 95 L (98-107) mmol/L Carbon Dioxide 35 H (22-30) mmol/L BUN 29 H (7-17) mg/dL Glucose 117 H (74-99) mg/dL Plasma Lactic Acid Elliott 2.3 H* (0.7-2.0) mmol/L AST 51 H (14-36) U/L Alkaline Phosphatase 184 H (38-126) U/L Urine pH (5.0-8.0) Urine Bilirubin (Negative) Thrombosis Risk Factor Assmnt - Choose All That Apply Any of the Below Risk Factors Present?: Yes Each Factor Represents 1 point: Medical pt on bed rest, Obesity (BMI >25), Serious lung disease incl. pneumonia (< 1month) Other Risk Factors: Yes Each Risk Factor Represents 2 Points: Age 61-74 years Thrombosis Risk Factor Assessment Total Risk Factor Score: 5 Thrombosis Risk Factor Assessment Level: High Risk Assessment and Plan Assessment: 1. Bacteremia; blood cultures are showing gram-positive cocci in clusters - We will start patient on IV vancomycin with pharmacy dosing service - Consult ID for further recommendations and evaluation - We will adjust IV antibiotics pending culture reports 2. Coumadin toxicity - We will continue to hold Coumadin until INR does 2.0 - Monitor PT/INR daily 3. Marked debility; inability to ambulate - Possibly secondary to septicemia - We will consult PT OT once patient is hemodynamically and clinically stable - Patient might need placement at the time of discharge 4. Hypertension; stable on metoprolol 25 mg twice a day 5. Seizure disorder; patient takes Keppra thousand milligrams twice a day at home ; we'll continue same 6. Hyperlipidemia; continue with Lipitor 40 mg by mouth daily 7. Atrial fibrillation; patient is rate controlled on metoprolol and anticoagulated with Coumadin 5 mg daily - Coumadin remains on hold until INR is below 2.0 - We will continue to monitor PT/INR daily 8. DVT prophylaxis; systemic anticoagulation CODE STATUS; full code
--- NOTE | 2017-09-01 16:57 | CONS ---
CONSULTATION Mrs. Duncan is a 67-year-old female who presented to the emergency room with weakness in her knee. She was in the hospital recently for similar symptoms and subsequently she was in [facility] for rehab. She was discharged 2 days ago, but has continued to have discomfort in the right knee and unable to stand. Cardiology consultation was requested because of her rhythm. The patient has a known history of mitral valve surgery, status post mitral valve replacement and prior mitral valve repair, history of persistent chronic atrial fibrillation and history of stroke. She has been anticoagulated. She denies any prior history of myocardial infarction or obstructive coronary artery disease. She is limited in her physical activity because of her prior stroke and any discomfort. She has some peripheral edema. No clear PND or orthopnea. She has some palpitation. No syncope. Her coronary risk factors are positive for history of hypertension, hyperlipidemia. She is nondiabetic, nonsmoker. MEDICATION: At home include Lipitor, , Coumadin, spironolactone 25 mg twice a day, sertraline, potassium, morphine, metoprolol tartrate 25 mg twice a day, digoxin 0.125 mg daily, Bumex 1 mg twice a day, Lipitor 40 mg daily, and low-dose aspirin. REVIEW OF SYSTEMS: RESPIRATORY SYSTEM: She has some dyspnea on exertion. No recent wheezing or cough. GI SYSTEM: No recent GI bleed. No peptic ulcer disease. SYSTEM: No dysuria or hematuria. NERVOUS SYSTEM: She had a history of stroke as noted. PHYSICAL EXAMINATION: 67-year-old female, alert, in no apparent distress. Head with drooping noted. Blood pressure 108/60 with a heart in 60. NECK: No bruit. LUNGS: No wheezes or rales. HEART: Irregular irregular S1, S2. No S3 with prosthetic mitral sounds and a systolic murmur. No diastolic murmur. ABDOMEN: Soft, obese, nontender. EXTREMITIES: Chronic changes. No significant edema. LAB DATA: Revealed BUN and creatinine 29 and 0.8. Her lactic acid on presentation 2.3, down to 2.9. Troponin 0.013. Her INR is 3.5, hemoglobin of 9.3. Her digoxin level was 0.8. Her EKG reveals atrial fibrillation with occasional PVCs and nonspecific ST-T wave changes. Her chest x-ray shows no infiltrate. IMPRESSION: 1. Knee discomfort with debilitation and generalized weakness. 2. Persistent chronic atrial fibrillation anticoagulated. 3. Status post mitral valve surgery. 4. Prior history of stroke. 5. Hyperlipidemia. RECOMMENDATION: From the cardiac standpoint, I will continue on the anticoagulation. I will obtain echocardiogram with Doppler. I will stop her digoxin and adjust her dose of beta elvis to optimize her ventricular response rate. Her last echocardiogram dates back from November 2016 and at that time, she had an preserved systolic function of 50% to 55% with severe tricuspid regurgitation, but no significant pulmonary hypertension. Depending on her progress, further recommendation will be made. Thank you for this consult. We will follow with you. MMODL / IJN: [id number] /
[2017-09-01] MEDS ORDERED: VANCOMYCIN 1,250 MG in SODIUM CHLORIDE 0.9% 250 ML IVPB SCH (22:00)
[2017-09-02] MEDS: ASPIRIN 81 MG PO SCH (08:16)
[2017-09-02] MEDS: ATORVASTATIN 40 MG TAB PO SCH (08:16)
[2017-09-02] MEDS: BUMETANIDE 1 MG TAB PO SCH ×2 (08:16→20:20)
[2017-09-02] MEDS: levETIRAcetam 500 MG TAB PO SCH ×2 (08:17→20:21)
[2017-09-02] MEDS: GABAPENTIN 300 MG CAP PO SCH ×2 (08:17→20:20)
[2017-09-02] MEDS: CHOLECALCIFEROL 1,000 UNIT TAB PO SCH (08:17)
[2017-09-02] MEDS: MORPHINE SULFATE ER 30 MG TABLET PO SCH ×2 (08:18→20:21)
[2017-09-02] MEDS: METOPROLOL TARTRATE 25 MG TAB PO SCH ×2 (08:18→20:21)
[2017-09-02] MEDS: SPIRONOLACTONE 25 MG TAB PO SCH ×2 (08:18→20:20)
[2017-09-02] MEDS: SERTRALINE 100 MG TAB PO SCH (08:18)
[2017-09-02 09:03] LABS: INR 2.3 (<1.2); Prothrombin Time 21.1 sec (9.0-12.0)
[2017-09-02 09:27] LABS: Anion Gap 7 mmol/L; Blood Urea Nitrogen 20 mg/dL (7-17); Calcium 8.8 mg/dL (8.4-10.2); Carbon Dioxide 29 mmol/L (22-30); Chloride 102 mmol/L (98-107); Glucose 164 mg/dL (74-99); Potassium 3.7 mmol/L (3.5-5.1); Sodium 138 mmol/L (137-145)
--- NOTE | 2017-09-02 12:31 | P.PN ---
Subjective 67 years old female was in [facility] 3 weeks for rehab she was discharged home 2 days ago she comes back now feeling well complaining about the right kidney pain she said she'll hard time ambulating and she feels tired and weak. She denies any headache no chest pain no shortness of breath no abdominal pain no frequency urgency dysuria right leg is swollen and there is a pain behind the right knee she said she'll hard time ambulating and bearing weight. 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 is compromising her ability to ambulate safely Abdomen, and DVT study was normal for the right leg chest x-rays unremarkable mild cardiomegaly noticed I right knee x-rays unremarkable as well did show some degenerative changes INR is 4.8 lactate is 2.3 with a blood cultures and urine culture as well troponin is normal EKG showed some PVCs H level was ordered urinalysis is normal lactate was 2.3 INR is high broken hold the Coumadin dose lactate is 2.3 no obvious source of infection though urine and blood cultures are have been done and considering she states has 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 Family is unable to take care of her patient does have significant weakness bedbound most of the time nonambulatory with atrophic changes in both legs. Constitutional: Denied any fatigue denied any fever. Cardio vascular: denied any chest pain, palpitations Gastrointestinal denied any nausea vomiting Pulmonary: Denied any shortness of breath cough Neurologic denied any new focal deficits Objective - Vital Signs Vital signs: Vital Signs Temp 99.5 F 09/02/17 06:32 Pulse 59 L 09/02/17 06:32 Resp 20 09/02/17 08:22 BP 98/56 09/02/17 06:32 Pulse Ox 97 09/02/17 06:32 Intake & Output 09/01/17 09/02/17 09/02/17 18:59 06:59 18:59 Weight 88 kg Other: Voiding Method Bedpan Bedpan # Voids 3 4 # Bowel Movements 0 - Exam PHYSICAL EXAMINATION: GENERAL: The patient is alert and oriented x3, not in any acute distress. Well developed, well nourished. HEENT: Pupils are round and equally reacting to light. EOMI. No scleral icterus. No conjunctival pallor. Normocephalic, atraumatic. No pharyngeal erythema. No thyromegaly. CARDIOVASCULAR: S1 and S2 present. No murmurs, rubs, or gallops. PULMONARY: Chest is clear to auscultation, no wheezing or crackles. ABDOMEN: Soft, nontender, nondistended, normoactive bowel sounds. No palpable organomegaly. MUSCULOSKELETAL: No joint swelling or deformity. EXTREMITIES: No cyanosis, clubbing,. Bilateral chronic pedal edema with chronic venous stasis dermatosis changes NEUROLOGICAL: No new focal deficit but patient legs are atrophied and chronic weakness SKIN: No rashes. - Labs CBC & Chem 7: 08/31/17 22:50 09/02/17 08:41 Labs: Abnormal Lab Results - Last 24 Hours (Table) 09/02/17 09/02/17 Range/Units 08:41 08:41 PT 21.1 H (9.0-12.0) sec INR 2.3 H (<1.2) BUN 20 H (7-17) mg/dL Glucose 164 H (74-99) mg/dL Microbiology - Last 24 Hours (Table) 08/31/17 22:50 Blood Culture - Preliminary Blood No Growth after 24 hours Assessment and Plan Plan: -Generalized WT chronic deconditioning: Patient will be discharged to skilled nursing tomorrow. 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
--- NOTE | 2017-09-02 14:19 | PN ---
PROGRESS NOTE Mrs. Duncan is a 67-year-old female who presented with weakness and leg discomfort. She has a known history of mitral valve replacement with a prosthetic mitral valve, history of persistent chronic atrial fibrillation. She is still complaining of a leg discomfort. Her breathing has been stable. She denies any symptoms of chest pain. She denies any dizziness or palpitations. She continues to be at this time on aspirin 81 mg daily, Lipitor, metoprolol 25 mg twice a day, spironolactone and Coumadin. PHYSICAL EXAMINATION: Blood pressure running in the 90s with a heart in the 60s. LUNGS: Clear. HEART: Irregular irregular. S1, S2 with prosthetic mitral sound and systolic murmur. No diastolic murmur. ABDOMEN: Soft, nontender. EXTREMITIES: With trace edema. LAB DATA: BUN and creatinine 20 and 0.7 potassium 3.7. INR 2.3. IMPRESSION: 1. Leg weakness and discomfort. 2. Status post mitral valve replacement. 3. Persistent chronic atrial fibrillation. 4. Status post mitral valve replacement with prosthetic valve. 5. History of stroke. 6. Hyperlipidemia. RECOMMENDATION: We will continue present therapy. Her INR should be kept in the 3 to 3.5 range because of the mitral valve prosthesis. Depending on her progress, further recommendation will be made. MMODL / IJN: [id number] /
[2017-09-02] MEDS: WARFARIN 2 MG TAB PO SCH (17:31)
[2017-09-03] MEDS: levETIRAcetam 500 MG TAB PO SCH ×2 (08:56→21:27)
[2017-09-03] MEDS: CHOLECALCIFEROL 1,000 UNIT TAB PO SCH (08:56)
[2017-09-03] MEDS: SPIRONOLACTONE 25 MG TAB PO SCH ×2 (08:56→16:55)
[2017-09-03] MEDS: GABAPENTIN 300 MG CAP PO SCH ×2 (08:57→21:27)
[2017-09-03] MEDS: ATORVASTATIN 40 MG TAB PO SCH (08:57)
[2017-09-03] MEDS: ASPIRIN 81 MG PO SCH (08:57)
[2017-09-03] MEDS: SERTRALINE 100 MG TAB PO SCH (08:57)
[2017-09-03] MEDS: BUMETANIDE 1 MG TAB PO SCH ×2 (08:57→16:55)
[2017-09-03] MEDS: METOPROLOL TARTRATE 25 MG TAB PO SCH ×2 (08:58→21:28)
[2017-09-03] MEDS: MORPHINE SULFATE ER 30 MG TABLET PO SCH ×2 (08:59→21:29)
[2017-09-03 10:23] LABS: Prothrombin Time 18.1 sec (9.0-12.0)
--- NOTE | 2017-09-03 10:27 | ECHOF ---
Referral Reason:mvr MEASUREMENTS -------- HEIGHT: 170.2 cm WEIGHT: 81.2 kg BP: 105/55 RVIDd: 3.9 cm (< 3.3) IVSd: 1.0 cm (0.6 - 1.1) LVIDd: 5.9 cm (3.9 - 5.3) LVPWd: 1.4 cm (0.6 - 1.1) IVSs: 1.6 cm LVIDs: 4.9 cm LVPWs: 1.4 cm LA Diam: 5.4 cm (2.7 - 3.8) LAESV Index (A-L): 98.11 ml/m Ao Diam: 3.3 cm (2.0 - 3.7) AV Cusp: 1.7 cm (1.5 - 2.6) LA Diam: 5.8 cm (2.7 - 3.8) MV E Mukesh: 1.55 m/s MV DecT: 367 ms MV A Mukesh: 0.03 m/s MV E/A Ratio: 51.80 RAP: 15.00 mmHg RVSP: 55.62 mmHg FINDINGS -------- Undetermined rhythm. This was a techncally difficult study with suboptimal views, , Lumason utilized for enhancement of im ages. The left ventricular size is normal. Overall left ventricular systolic function is mild-moderately impaired with, an EF between 40 - 45 %. Anterseptal Hypokinesis Septal Hypokinesis The right ventricle is moderate to severely enlarged. The right ventricular wall thickness is norm al measuring < 5mm. The left atrium is markedly dilated. LA is severely dilated >40 ml/m2 The right atrium is markedly enlarged. 5.0mg OF Lumason UTLIZED: 2 OR MORE WALL SEGMENTS NOT VISUALIZED. There is mild aortic valve sclerosis. There is no evidence of aortic regurgitation. The peak and mean MV gradients are 10.33mmHg 2.47mmHg as measured by doppler. Pt has a mechanical M V. Severe tricuspid regurgitation present. There is moderate to severe pulmonary hypertension. The r ight ventricular systolic pressure, as measured by Doppler, is 55.62mmHg. Trace/mild (physiologic) pulmonic regurgitation. The aortic root size is normal. IVC Not well visulized. There is no pericardial effusion. CONCLUSIONS -------- 1. This was a techncally difficult study with suboptimal views, , Lumason utilized for enhancement of images. 2. The left ventricular size is normal. 3. Overall left ventricular systolic function is mild-moderately impaired with, an EF between 40 - 45 %. 4. Anterseptal Hypokinesis 5. Septal Hypokinesis 6. The right ventricle is moderate to severely enlarged. 7. The left atrium is markedly dilated. 8. LA is severely dilated >40 ml/m2 9. The right atrium is markedly enlarged. 10. 5.0mg OF Lumason UTLIZED: 2 OR MORE WALL SEGMENTS NOT VISUALIZED. 11. There is mild aortic valve sclerosis. 12. The peak and mean MV gradients are 10.33mmHg 2.47mmHg as measured by doppler. 13. Pt has a mechanical MV. 14. Severe tricuspid regurgitation present. 15. There is moderate to severe pulmonary hypertension. 16. The right ventricular systolic pressure, as measured by Doppler, is 55.62mmHg. 17. Trace/mild (physiologic) pulmonic regurgitation. 18. The aortic root size is normal. 19. IVC Not well visulized. 20. There is no pericardial effusion. SENIOR SUPPORT ENGINEER: Sinai Bradshaw RDCS
--- NOTE | 2017-09-03 11:11 | PN ---
PROGRESS NOTE Asha is a 67-year-old lady with history of mitral valve replacement, atrial fibrillation, who is admitted to hospital with weakness and leg discomfort. Cardiology had been consulted because of her cardiac history. This morning, she still has some discomfort in the leg, but overall feeling better. Denies chest pain, difficulty in breathing or palpitations. Her current medications include aspirin, Lipitor, Bumex, Lopressor, Aldactone, and Coumadin. Labs show that the INR is therapeutic at 2.3. Potassium is 3.7. Creatinine is 0.7. On exam, comfortable at rest. Vital signs are stable. Chest exam reveals good air entry bilaterally. Heart exam reveals first and second heart sounds. Mechanical valve sound is heard clearly. Abdomen is soft. Examination of extremities did not reveal any edema. Peripheral pulses are felt. ASSESSMENT: 1. Right leg discomfort. 2. History of mitral valve replacement. 3. History of atrial fibrillation. PLAN: Patient is doing well. Will continue with current medications. MMODL / IJN: [id number] /
[2017-09-03] MEDS: CALCIUM POLYCARBOPHIL 625 MG TAB PO PRN (14:27)
--- NOTE | 2017-09-03 14:33 | P.PN ---
Subjective 67 years old female was in [facility] weeks for rehab she was discharged home 2 days ago she comes back now feeling well complaining about the right kidney pain she said she'll hard time ambulating and she feels tired and weak. She denies any headache no chest pain no shortness of breath no abdominal pain no frequency urgency dysuria right leg is swollen and there is a pain behind the right knee she said she'll hard time ambulating and bearing weight. 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 is compromising her ability to ambulate safely Abdomen, and DVT study was normal for the right leg chest x-rays unremarkable mild cardiomegaly noticed I right knee x-rays unremarkable as well did show some degenerative changes INR is 4.8 lactate is 2.3 with a blood cultures and urine culture as well troponin is normal EKG showed some PVCs H level was ordered urinalysis is normal lactate was 2.3 INR is high broken hold the Coumadin dose lactate is 2.3 no obvious source of infection though urine and blood cultures are have been done and considering she states has 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 Family is unable to take care of her patient does have significant weakness bedbound most of the time nonambulatory with atrophic changes in both legs. 09/03/2017 Known the night events awaiting disposition to subacute rehabilitation Constitutional: Denied any fatigue denied any fever. Cardio vascular: denied any chest pain, palpitations Gastrointestinal denied any nausea vomiting Pulmonary: Denied any shortness of breath cough Neurologic denied any new focal deficits Objective - Vital Signs Vital signs: Vital Signs Temp 99.3 F 09/03/17 06:30 Pulse 53 L 09/03/17 06:30 Resp 16 09/03/17 06:30 BP 105/55 09/03/17 06:30 Pulse Ox 98 09/03/17 06:30 Intake & Output 09/02/17 09/03/17 09/03/17 18:59 06:59 18:59 Intake Total 240 Balance 240 Weight 81.5 kg 81.5 kg Intake: Oral 240 Other: Voiding Method Bedpan Bedpan # Voids 1 3 2 # Bowel Movements 0 - Exam PHYSICAL EXAMINATION: GENERAL: The patient is alert and oriented x3, not in any acute distress. Well developed, well nourished. HEENT: Pupils are round and equally reacting to light. EOMI. No scleral icterus. No conjunctival pallor. Normocephalic, atraumatic. No pharyngeal erythema. No thyromegaly. CARDIOVASCULAR: S1 and S2 present. No murmurs, rubs, or gallops. PULMONARY: Chest is clear to auscultation, no wheezing or crackles. ABDOMEN: Soft, nontender, nondistended, normoactive bowel sounds. No palpable organomegaly. MUSCULOSKELETAL: No joint swelling or deformity. EXTREMITIES: No cyanosis, clubbing,. Bilateral chronic pedal edema with chronic venous stasis dermatosis changes NEUROLOGICAL: No new focal deficit but patient legs are atrophied and chronic weakness SKIN: No rashes. - Labs CBC & Chem 7: 08/31/17 22:50 09/02/17 08:41 Labs: Abnormal Lab Results - Last 24 Hours (Table) 09/03/17 Range/Units 10:02 PT 18.1 H (9.0-12.0) sec INR 2.0 H (<1.2) Microbiology - Last 24 Hours (Table) 08/31/17 22:50 Blood Culture - Preliminary Blood No Growth after 48 hours 09/01/17 14:02 Blood Culture - Preliminary Blood No Growth after 24 hours Assessment and Plan Plan: -Generalized WT chronic deconditioning: Patient will be discharged to shelter tomorrow. 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
[2017-09-03] MEDS: WARFARIN 2 MG TAB PO SCH (16:55)
[2017-09-04] MEDS: ACETAMINOPHEN TAB 325 MG TAB PO PRN (02:46)
[2017-09-04] MEDS: SPIRONOLACTONE 25 MG TAB PO SCH ×2 (08:27→16:39)
[2017-09-04] MEDS: GABAPENTIN 300 MG CAP PO SCH ×2 (08:27→21:42)
[2017-09-04] MEDS: BUMETANIDE 1 MG TAB PO SCH ×2 (08:27→16:39)
[2017-09-04] MEDS: ASPIRIN 81 MG PO SCH (08:28)
[2017-09-04] MEDS: ATORVASTATIN 40 MG TAB PO SCH (08:28)
[2017-09-04] MEDS: CHOLECALCIFEROL 1,000 UNIT TAB PO SCH (08:28)
[2017-09-04] MEDS: levETIRAcetam 500 MG TAB PO SCH ×2 (08:28→21:42)
[2017-09-04] MEDS: MORPHINE SULFATE ER 30 MG TABLET PO SCH ×2 (08:29→23:16)
[2017-09-04] MEDS: METOPROLOL TARTRATE 25 MG TAB PO SCH (08:29)
[2017-09-04] MEDS: SERTRALINE 100 MG TAB PO SCH (08:31)
[2017-09-04] MEDS: CALCIUM POLYCARBOPHIL 625 MG TAB PO PRN (09:34)
[2017-09-04 11:30] LABS: INR 2.1 (<1.2); Prothrombin Time 18.7 sec (9.0-12.0)
--- NOTE | 2017-09-04 11:43 | P.PN ---
Subjective Mrs. Duncan is a pleasant 67-year-old female past medical history significant for mechanical mitral valve replacement, chronic persistent atrial fibrillation and dyslipidemia. We are following her on this admission for history of a-fib and mechanical mitral valve. Echocardiogram was obtained yesterday and revealed mild to moderately impaired left ventricular systolic function with ejection fraction 40-45%, anteroseptal hypokinesia, septal hypokinesia, moderately impaired right ventricle, severely dilated left atrium, mild aortic valve sclerosis, normally functioning mechanical mitral valve with a mean gradient 2.47 mmHg, severe TR and moderate pulmonary hypertension with RVSP of 55.62 mmHg. She denies symptoms of chest pain, shortness of breath, palpitations or dizziness. Lopressor has been held for bradycardia and hypotension. Lowest documented heart rate is 50 and that was on 25mg BID. Blood pressure has been 100 systolic. INR today 2.1. Objective - Vital Signs Vital signs: Vital Signs Temp 97.4 F L 09/04/17 05:59 Pulse 52 L 09/04/17 05:59 Resp 16 09/04/17 05:59 BP 102/43 09/04/17 05:59 Pulse Ox 97 09/04/17 05:59 Intake & Output 09/03/17 09/04/17 09/04/17 18:59 06:59 18:59 Intake Total 240 500 Balance 240 500 Weight 81.5 kg 76 kg Intake: Oral 240 500 Other: Voiding Method Bedpan # Voids 2 1 # Bowel Movements 0 - Exam GENERAL: Well-appearing, well-nourished and in no acute distress. NECK: Supple without JVD or thyromegaly. LUNGS: Breath sounds clear to auscultation bilaterally. Respiration equal and unlabored. No wheezes, rales or rhonchi. HEART: Irregular rate and rhythm with mechanical click and systolic murmur, no rubs or gallops. S1 and S2 heard. EXTREMITIES: Normal range of motion, bilateral lower extremity non-pitting edema. No clubbing or cyanosis. Peripheral pulses intact. - Labs CBC & Chem 7: 08/31/17 22:50 09/02/17 08:41 Labs: Abnormal Lab Results - Last 24 Hours (Table) 09/03/17 Range/Units 10:02 PT 18.1 H (9.0-12.0) sec INR 2.0 H (<1.2) Microbiology - Last 24 Hours (Table) 08/31/17 22:50 Blood Culture - Preliminary Blood No Growth after 72 hours 09/01/17 14:02 Blood Culture - Preliminary Blood No Growth after 48 hours Assessment and Plan Assessment: ASSESSMENT Right leg discomfort Chronic persistent atrial fibrillation with slow ventricular response on exterminator helper termite anticoagulation with coumadin, target INR 3-3.5 History of mechanical mitral valve replacement on exterminator helper termite anticoagulation Coumadin toxicity on admission, currently sub-therapeutic Dyslipidemia PLAN Decrease lopressor to 12.5mg BID. Blood pressure low with systolic in the low 100 range, no CHRISTA/ARB will be started at this time. Continue with aldactone, atorvastatin and aspirin as previously ordered. Pharmacy to dose coumadin. The above impression and plan of care have been discussed and directed by the signing physician. Gris Jolley, nurse practitioner, acting as scribe for signing physician.
--- NOTE | 2017-09-04 13:24 | P.PN ---
Subjective Progress Note Date: 09/04/17 Progress note being dictated for Dr. Bustamante Interval history: 67 years old female was in [facility] weeks for rehab she was discharged home 2 days ago she comes back now feeling well complaining about the right kidney pain she said she'll hard time ambulating and she feels tired and weak. She denies any headache no chest pain no shortness of breath no abdominal pain no frequency urgency dysuria right leg is swollen and there is a pain behind the right knee she said she'll hard time ambulating and bearing weight. 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 is compromising her ability to ambulate safely Abdomen, and DVT study was normal for the right leg chest x-rays unremarkable mild cardiomegaly noticed I right knee x-rays unremarkable as well did show some degenerative changes INR is 4.8 lactate is 2.3 with a blood cultures and urine culture as well troponin is normal EKG showed some PVCs H level was ordered urinalysis is normal lactate was 2.3 INR is high broken hold the Coumadin dose lactate is 2.3 no obvious source of infection though urine and blood cultures are have been done and considering she states has 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 Family is unable to take care of her patient does have significant weakness bedbound most of the time nonambulatory with atrophic changes in both legs. 09/03/2017 Known the night events awaiting disposition to subacute rehabilitation Constitutional: Denied any fatigue denied any fever. Cardio vascular: denied any chest pain, palpitations Gastrointestinal denied any nausea vomiting Pulmonary: Denied any shortness of breath cough Neurologic denied any new focal deficits 09/04/2017 No overnight events. Echo reporting mild to moderate impaired LV function, EF 40-45%, anterior septal , septal hypokinesis, moderately impaired right ventricle, severely dilated left atrium, normal functioning mechanical mitral valve, severe tricuspid regurgitation and moderate pulmonary hypertension. Bradycardic and beta elvis dose decreased. Borderline hypotension, systolic blood pressures in the low 100s. INR 2.1, anticoagulated on Coumadin. Denies chest pain, palpitations or increasing shortness of breath. Objective - Vital Signs Vital signs: Vital Signs Temp 97.4 F L 09/04/17 05:59 Pulse 52 L 09/04/17 05:59 Resp 16 09/04/17 05:59 BP 102/43 09/04/17 05:59 Pulse Ox 97 09/04/17 05:59 Intake & Output 09/03/17 09/04/17 09/04/17 18:59 06:59 18:59 Intake Total 240 500 Balance 240 500 Weight 81.5 kg 76 kg Intake: Oral 240 500 Other: Voiding Method Bedpan # Voids 2 1 # Bowel Movements 0 - Exam GENERAL: The patient is alert and oriented x3, not in any acute distress. Well developed, well nourished. HEENT: Pupils are round and equally reacting to light. EOMI. No scleral icterus. No conjunctival pallor. Normocephalic, atraumatic. No pharyngeal erythema. No thyromegaly. CARDIOVASCULAR: S1 and S2 present. Mechanical click, positive systolic murmur, no rubs, or gallops. PULMONARY: Chest is clear to auscultation, no wheezing or crackles. ABDOMEN: Soft, nontender, nondistended, normoactive bowel sounds. No palpable organomegaly. MUSCULOSKELETAL: No joint swelling or deformity. EXTREMITIES: No cyanosis, clubbing,. Bilateral chronic pedal edema with chronic venous stasis dermatosis changes NEUROLOGICAL: No new focal deficit but patient legs are atrophied and chronic weakness SKIN: No rashes. Microbiology 08/31/17 22:50 Blood Blood Culture - Preliminary No Growth after 72 hours 09/01/17 14:02 Blood Blood Culture - Preliminary No Growth after 48 hours - Labs CBC & Chem 7: 08/31/17 22:50 09/02/17 08:41 Labs: Abnormal Lab Results - Last 24 Hours (Table) 09/04/17 Range/Units 10:51 PT 18.7 H (9.0-12.0) sec INR 2.1 H (<1.2) Microbiology - Last 24 Hours (Table) 08/31/17 22:50 Blood Culture - Preliminary Blood No Growth after 72 hours 09/01/17 14:02 Blood Culture - Preliminary Blood No Growth after 48 hours Assessment and Plan Assessment: -Generalized WT chronic deconditioning: Patient will be discharged to senior living tomorrow. 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 Beta elvis dose decreased as mentioned above. No arjun or ARB at this time, given borderline hypotension. Discharge planning in progress pending pre-[facility] for subacute rehab. The impression and plan of care has been dictated as directed. : I performed a history and examination of this patient, discussed the same with the dictator. I agree with the dictator's note ,documented as a scribe. Any additional findings or plans will be noted.
[2017-09-04] MEDS ORDERED: WARFARIN 5 MG TAB PO ONE (18:00)
[2017-09-04] MEDS: METOPROLOL TARTRATE 12.5 MG TAB PO SCH (21:42)
[2017-09-05 06:13] VITALS: RESP 16
[2017-09-05] MEDS: ASPIRIN 81 MG PO SCH (08:49)
[2017-09-05] MEDS: METOPROLOL TARTRATE 12.5 MG TAB PO SCH (08:49)
[2017-09-05] MEDS: CHOLECALCIFEROL 1,000 UNIT TAB PO SCH (08:49)
[2017-09-05] MEDS: levETIRAcetam 500 MG TAB PO SCH (08:49)
[2017-09-05] MEDS: SPIRONOLACTONE 25 MG TAB PO SCH (08:49)
[2017-09-05] MEDS: SERTRALINE 100 MG TAB PO SCH (08:50)
[2017-09-05] MEDS: BUMETANIDE 1 MG TAB PO SCH (08:50)
[2017-09-05] MEDS: GABAPENTIN 300 MG CAP PO SCH (08:50)
[2017-09-05] MEDS: ATORVASTATIN 40 MG TAB PO SCH (08:51)
[2017-09-05] MEDS: MORPHINE SULFATE ER 30 MG TABLET PO SCH (08:57)
[2017-09-05] MEDS ORDERED: CALCIUM POLYCARBOPHIL 625 MG TAB PO SCH (09:00)
[2017-09-05 09:05] LABS: INR 2.4 (<1.2)
--- NOTE | 2017-09-05 14:20 | P.PN ---
Subjective Mrs. Duncan is a pleasant 67-year-old female past medical history significant for mechanical mitral valve replacement, chronic persistent atrial fibrillation and dyslipidemia. We are following her on this admission for history of a-fib and mechanical mitral valve. Echocardiogram was obtained yesterday and revealed mild to moderately impaired left ventricular systolic function with ejection fraction 40-45%, anteroseptal hypokinesia, septal hypokinesia, moderately impaired right ventricle, severely dilated left atrium, mild aortic valve sclerosis, normally functioning mechanical mitral valve with a mean gradient 2.47 mmHg, severe TR and moderate pulmonary hypertension with RVSP of 55.62 mmHg. She denies symptoms of chest pain, shortness of breath, palpitations or dizziness. Lopressor has been held for bradycardia and hypotension. Lowest documented heart rate is 50 and that was on 25mg BID. Blood pressure has been 100 systolic. INR today 2.1. 09/05/2017 Mrs. Duncan is seen and examined resting comfortably in bed in no acute distress. She denies chest pain, shortness of breath, palpitations or dizziness. Blood pressures have continued to be on the low side with systolic 99 -109 and heart rate 58-60. Parameters have been added to lopressor. INR 2.4 today. Pharmacy to dose coumadin. Objective - Vital Signs Vital signs: Vital Signs Temp 97.6 F 09/05/17 05:50 Pulse 58 L 09/05/17 05:50 Resp 16 09/05/17 05:50 BP 99/41 09/05/17 05:50 Pulse Ox 96 09/05/17 05:50 Intake & Output 09/04/17 09/05/17 09/05/17 18:59 06:59 18:59 Intake Total 480 Balance 480 Weight 76 kg 82.5 kg Intake: Oral 480 Other: Voiding Method Bedpan Incontinent # Voids 3 2 1 # Bowel Movements 1 - Exam GENERAL: Well-appearing, well-nourished and in no acute distress. NECK: Supple without JVD or thyromegaly. LUNGS: Breath sounds clear to auscultation bilaterally. Respiration equal and unlabored. No wheezes, rales or rhonchi. HEART: Irregular rate and rhythm with mechanical click and systolic murmur, no rubs or gallops. S1 and S2 heard. EXTREMITIES: Normal range of motion, bilateral lower extremity non-pitting edema. No clubbing or cyanosis. Peripheral pulses intact. - Labs CBC & Chem 7: 08/31/17 22:50 09/02/17 08:41 Labs: Abnormal Lab Results - Last 24 Hours (Table) 09/05/17 Range/Units 08:27 PT 22.0 H (9.0-12.0) sec INR 2.4 H (<1.2) Microbiology - Last 24 Hours (Table) 08/31/17 22:50 Blood Culture - Preliminary Blood No Growth after 96 hours 09/01/17 14:02 Blood Culture - Preliminary Blood No Growth after 72 hours Assessment and Plan Assessment: ASSESSMENT Right leg discomfort Chronic persistent atrial fibrillation with slow ventricular response on ocean transportation intermediary anticoagulation with coumadin, target INR 3-3.5 History of mechanical mitral valve replacement on custodial anticoagulation Coumadin toxicity on admission, currently sub-therapeutic Dyslipidemia PLAN Stable from a cardiac perspective for discharge to [facility] on lopressor 12.5 mg BID with parameters to hold for heart rate less then 55 or systolic pressure less than 90. Digoxin has been discontinued. Pharmacy to dose coumadin. PT/INR lab draw in [address] days. Follow up with Dr. Diop in 2-3 weeks. The above impression and plan of care have been discussed and directed by the signing physician. Gris Jolley, nurse practitioner, acting as scribe for signing physician.
--- NOTE | 2017-09-05 15:02 | P.DS ---
Providers Date of admission: 09/02/17 11:34 Attending physician: Edin Toledo MD Consults: 09/01/17 02:35 Consult Physician Stat Consulting Provider: Miguel Solano Consult Reason/Comments: h/o ischemic heart disease, multiple PVCs on EKG Do you want consulting provider notified?: Yes Primary care physician: [facility] Course: 67 years old female was in [facility] for rehab she was discharged home 2 days ago she comes back now feeling well complaining about the right kidney pain she said she'll hard time ambulating and she feels tired and weak. She denies any headache no chest pain no shortness of breath no abdominal pain no frequency urgency dysuria right leg is swollen and there is a pain behind the right knee she said she'll hard time ambulating and bearing weight. 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 is compromising her ability to ambulate safely Abdomen, and DVT study was normal for the right leg chest x-rays unremarkable mild cardiomegaly noticed I right knee x-rays unremarkable as well did show some degenerative changes INR is 4.8 lactate is 2.3 with a blood cultures and urine culture as well troponin is normal EKG showed some PVCs H level was ordered urinalysis is normal lactate was 2.3 INR is high broken hold the Coumadin dose lactate is 2.3 no obvious source of infection though urine and blood cultures are have been done and considering she states has 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 Family is unable to take care of her patient does have significant weakness bedbound most of the time nonambulatory with atrophic changes in both legs. 09/03/2017 Known the night events awaiting disposition to subacute rehabilitation 09/04/2017 No overnight events. Echo reporting mild to moderate impaired LV function, EF 40-45%, anterior septal , septal hypokinesis, moderately impaired right ventricle, severely dilated left atrium, normal functioning mechanical mitral valve, severe tricuspid regurgitation and moderate pulmonary hypertension. Bradycardic and beta elvis dose decreased. Borderline hypotension, systolic blood pressures in the low 100s. INR 2.1, anticoagulated on Coumadin. Denies chest pain, palpitations or increasing shortness of breath. 09/05/2017 No overnight events patient will be discharged today in stable medical condition to subacute rehab. GENERAL: The patient is alert and oriented x3, not in any acute distress. Well developed, well nourished. HEENT: Pupils are round and equally reacting to light. EOMI. No scleral icterus. No conjunctival pallor. Normocephalic, atraumatic. No pharyngeal erythema. No thyromegaly. CARDIOVASCULAR: S1 and S2 present. Mechanical click, positive systolic murmur, no rubs, or gallops. PULMONARY: Chest is clear to auscultation, no wheezing or crackles. ABDOMEN: Soft, nontender, nondistended, normoactive bowel sounds. No palpable organomegaly. MUSCULOSKELETAL: No joint swelling or deformity. EXTREMITIES: No cyanosis, clubbing,. Bilateral chronic pedal edema with chronic venous stasis dermatosis changes NEUROLOGICAL: No new focal deficit but patient legs are atrophied and chronic weakness SKIN: No rashes. Assessment and Plan Assessment: -Generalized weakness chronic deconditioning: Patient will be [facility] to [facility]. -Coumadin toxicity, INR is currently therapeutic, patient has a mechanical valve -Hypertension and atrial fibrillation; borderline hypotension, mild bradycardia with metoprolol decreased -Seizure disorder -Hyperlipidemia -Lopez's cyst which was not infected on the right side Patient Condition at Discharge: Good Plan - Discharge Summary New Discharge Prescriptions: New Metoprolol Tartrate [Lopressor] 12.5 mg PO BID tab Continue Sertraline HCl 100 mg PO DAILY Atorvastatin Calcium [Lipitor] 40 mg PO QAM Gabapentin 600 mg PO BID levETIRAcetam 1,000 mg PO BID Spironolactone [Aldactone] 25 mg PO BID Bumetanide [BUMEX] 1 mg PO BID Aspirin [Adult Low Dose Aspirin EC] 81 mg PO DAILY Cholecalciferol [Vitamin D3] 5,000 unit PO DAILY Warfarin [Coumadin] 5 mg PO DAILY Potassium 99 mg PO DAILY Morphine Sulfate ER [Ms Contin] 30 mg PO Q12HR #6 tablet Discontinued Digoxin [Digox] 125 mcg PO DAILY Metoprolol Tartrate [Lopressor] 25 mg PO BID #60 tab Discharge Medication List Atorvastatin Calcium [Lipitor] 40 mg PO QAM 09/06/15 [History] Sertraline HCl 100 mg PO DAILY 09/06/15 [History] Gabapentin 600 mg PO BID 09/13/15 [History] Spironolactone [Aldactone] 25 mg PO BID 11/23/16 [History] levETIRAcetam 1,000 mg PO BID 11/23/16 [History] Aspirin [Adult Low Dose Aspirin EC] 81 mg PO DAILY 07/24/17 [History] Bumetanide [BUMEX] 1 mg PO BID 07/24/17 [History] Cholecalciferol [Vitamin D3] 5,000 unit PO DAILY 08/31/17 [History] Potassium 99 mg PO DAILY 08/31/17 [History] Warfarin [Coumadin] 5 mg PO DAILY 08/31/17 [History] Metoprolol Tartrate [Lopressor] 12.5 mg PO BID tab 09/05/17 [Rx] Morphine Sulfate ER [Ms Contin] 30 mg PO Q12HR #6 tablet 09/05/17 [Rx] Follow up Appointment(s)/Referral(s): Melody Arce DO [Primary Care Provider] - 1-2 days Rashawn Diop MD [STAFF PHYSICIAN] - 2 Weeks Patient Instructions/Handouts: Weakness (GEN) Activity/Diet/Wound Care/Special Instructions: heart healthy diet as tolerated activity as tolerated antifungal powder to groin barrier cream to buttock Discharge Disposition: TRANSFER TO SNF/ECF
[2017-09-05 15:15] VITALS: BP 101/51; PULSE 60; TEMP 98.8
[2017-09-05] MEDS ORDERED: WARFARIN 5 MG TAB PO ONE (18:00)
== END 2017-09-05 15:50 | DRG 558 ==
LOC: EC 21:07 → 4MS4W 09-01 02:44 → OBSVTOIN 09-02 11:34 → 4MS4W 09-04 23:16
PROVIDERS: ADMIT Internal Medicine; ATTEND Internal Medicine
DX: M71.20 Synovial cyst of popliteal space [Baker], unspecified knee (principal); I69.954 Hemiplegia and hemiparesis following unspecified cerebrovascular disease affecting left non-dominant side; E78.5 Hyperlipidemia, unspecified; I27.20 Pulmonary hypertension, unspecified; I08.2 Rheumatic disorders of both aortic and tricuspid valves; I48.2 Chronic atrial fibrillation; I95.9 Hypotension, unspecified; F32.9 Major depressive disorder, single episode, unspecified; T45.511A Poisoning by anticoagulants, accidental (unintentional), initial encounter; G40.909 Epilepsy, unspecified, not intractable, without status epilepticus; I25.10 Atherosclerotic heart disease of native coronary artery without angina pectoris; R00.1 Bradycardia, unspecified; R53.1 Weakness; R53.81 Other malaise; I11.9 Hypertensive heart disease without heart failure; R79.1 Abnormal coagulation profile; M79.604 Pain in right leg; T45.515A Adverse effect of anticoagulants, initial encounter; I87.8 Other specified disorders of veins; R32 Unspecified urinary incontinence; Z79.01 Long term (current) use of anticoagulants; Z79.82 Long term (current) use of aspirin; Z79.899 Other long term (current) drug therapy; Z79.891 Long term (current) use of opiate analgesic; Z88.5 Allergy status to narcotic agent; Z88.8 Allergy status to other drugs, medicaments and biological substances; Z95.2 Presence of prosthetic heart valve; Z87.01 Personal history of pneumonia (recurrent); Z91.81 History of falling; Z90.49 Acquired absence of other specified parts of digestive tract; Z98.51 Tubal ligation status; Z82.49 Family history of ischemic heart disease and other diseases of the circulatory system; Z80.1 Family history of malignant neoplasm of trachea, bronchus and lung; Z80.8 Family history of malignant neoplasm of other organs or systems; Z82.0 Family history of epilepsy and other diseases of the nervous system; Z74.01 Bed confinement status; Y92.009 Unspecified place in unspecified non-institutional (private) residence as the place of occurrence of the external cause; Y92.239 Unspecified place in hospital as the place of occurrence of the external cause
CPT/HCPCS: 36415; 71046; 80048; 80053; 80162; 81003; 82550; 82553; 83605; 84484; 85025; 85610; 87040; 93005; 93306; 96361; 96374; 99285

== ENCOUNTER 2017-10-01 13:18 | Observation (INO) | payer MEDICARE ==
--- NOTE | 2017-10-01 13:53 | ED ---
General Adult HPI - General Chief complaint: Recheck/Abnormal Lab/Rx Stated complaint: abn labs Time Seen by Provider: 10/01/17 13:24 Source: patient, EMS, RN notes reviewed, old records reviewed Mode of arrival: EMS Limitations: no limitations - History of Present Illness Initial comments: 67-year-old female presents from custodial with elevated INR. Patient reports that INR was greater than 10. She is on Coumadin, history of CVA and CAD. Denies any hematuria, denies rectal bleeding or melena. She does report some bruising throughout her extremities. She has previous CVA with residual left-sided weakness. Denies chest pain. Denies abdominal pain. She has some back pain which she states is chronic and unchanged. No fever or chills. No cough. No chest pain or dyspnea. - Related Data Home Medications Medication Instructions Recorded Confirmed Atorvastatin Calcium [Lipitor] 40 mg PO HS 09/06/15 10/01/17 Sertraline HCl 100 mg PO DAILY 09/06/15 10/01/17 Gabapentin 600 mg PO BID 09/13/15 10/01/17 Spironolactone [Aldactone] 25 mg PO BID 11/23/16 10/01/17 levETIRAcetam 1,000 mg PO BID 11/23/16 10/01/17 Aspirin [Adult Low Dose Aspirin EC] 81 mg PO HS 07/24/17 10/01/17 Bumetanide [BUMEX] 1 mg PO BID 07/24/17 10/01/17 Cholecalciferol [Vitamin D3] 5,000 unit PO DAILY 08/31/17 10/01/17 Potassium 99 mg PO HS 08/31/17 10/01/17 Acetaminophen Tab [Tylenol Tab] 650 mg PO Q6H PRN 10/01/17 10/01/17 Amino Acids/Protein Hydrolys 30 ml PO BID 10/01/17 10/01/17 [Pro-Stat Supplement] Aspercreme W/Lidocaine 4% 1 applic TOPICAL TID 10/01/17 10/01/17 Bisacodyl [Dulcolax] 10 mg RECTAL Q72H PRN 10/01/17 10/01/17 Magnesium Hydroxide [Milk of 2,400 mg PO DAILY PRN 10/01/17 10/01/17 Magnesia] Morphine Sulfate ER [Ms Contin] 30 mg PO BID@10/01/17 10/01/17 Phytonadione (Vit K1) [Mephyton] 5 mg PO ONCE@01510/01/17 10/01/17 Sennosides [Senna] 17.2 mg PO HS@199910/01/17 10/01/17 Warfarin Sodium [Coumadin] 5 mg PO DIRECTED 10/01/17 10/01/17 Previous Rx's Medication Instructions Recorded Metoprolol Tartrate [Lopressor] 12.5 mg PO BID tab 09/05/17 Allergies Allergy/AdvReac Type Severity Reaction Status Date / Time codeine Allergy Chest Pain Verified 10/01/17 13:36 lorazepam [From Ativan] AdvReac GIVES THE Verified 10/01/17 13:36 OPPOSITE EFFECT Review of Systems ROS Statement: Those systems with pertinent positive or pertinent negative responses have been documented in the HPI. ROS Other: All systems not noted in ROS Statement are negative. Past Medical History Past Medical History: Atrial Fibrillation, Coronary Artery Disease (CAD), CVA/ TIA, Hyperlipidemia, Pneumonia, Seizure Disorder Additional Past Medical History / Comment(s): FALLS, CONCUSSION, STROKE AFFECTED LT SIDE UNABLE TO USE LT ARM AND STATED FOOT DRAGS TE. Left shoulder fracture 2016, 2018. 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 VALVE REPLACEMENT" Past Anesthesia/Blood Transfusion Reactions: No Reported Reaction Past Psychological History: Depression Smoking Status: Never smoker Past Alcohol Use History: None Reported Past Drug Use History: None Reported - Past Family History Father Family Medical History: Cancer Additional Family Medical History / Comment(s): BRAIN AND LUNG CANCER Mother Family Medical History: Coronary Artery Disease (CAD), Dementia Additional Family Medical History / Comment(s): PT COULDN'T REMEMBER WHAT MOM FROM General Exam Limitations: no limitations General appearance: alert, in no apparent distress Head exam: Present: atraumatic, normocephalic Eye exam: Present: normal appearance, PERRL, EOMI ENT exam: Present: normal exam Neck exam: Present: normal inspection. Absent: tenderness, meningismus Respiratory exam: Present: normal lung sounds bilaterally. Absent: respiratory distress, wheezes Cardiovascular Exam: Present: regular rate, normal rhythm GI/Abdominal exam: Present: soft. Absent: distended, tenderness Neurological exam: Present: alert, oriented X3, motor sensory deficit (Residual left-sided weakness) Skin exam: Present: warm, dry, intact. Absent: cyanosis, diaphoretic Course Vital Signs 10/01/17 10/01/17 13:27 16:14 Temperature 98.1 F Pulse Rate 73 74 Respiratory 18 18 Rate Blood Pressure 142/62 121/66 O2 Sat by Pulse 99 94 L Oximetry EKG Findings - EKG Comments: EKG Findings:: Sinus rhythm, incomplete right bundle branch block, frequent PVC , rate of 69, QRS duration 100, QTC 468, no ST segment elevation Medical Decision Making - Medical Decision Making 67-year-old female presenting with supratherapeutic INR greater than 10 on outpatient laboratory studies. Emergency department hemoglobin is stable 12.4, INR is 5.4. No active signs of bleeding. Patient will be kept in observation for repeat hemoglobin as well as repeat INR in the morning. Case discussed with Dr. Ojeda who will accept admission. - Lab Data Result diagrams: 10/01/17 14:30 10/01/17 15:16 Lab Results 10/01/17 10/01/17 10/01/17 Range/Units 14:30 14:30 15:00 WBC 7.2 (3.8-10.6) k/uL RBC 4.11 (3.80-5.40) m/uL Hgb 12.4 D (11.4-16.0) gm/dL Hct 40.0 (34.0-46.0) % MCV 97.3 (80.0-100.0) fL MCH 30.2 (25.0-35.0) pg MCHC 31.1 (31.0-37.0) g/dL RDW 13.9 (11.5-15.5) % Plt Count 157 (150-450) k/uL Neutrophils % 75 % Lymphocytes % 14 % Monocytes % 7 % Eosinophils % 3 % Basophils % 0 % Neutrophils # 5.4 (1.3-7.7) k/uL Lymphocytes # 1.0 (1.0-4.8) k/uL Monocytes # 0.5 (0-1.0) k/uL Eosinophils # 0.2 (0-0.7) k/uL Basophils # 0.0 (0-0.2) k/uL PT 49.1 H (9.0-12.0) sec INR 5.4 H* (<1.2) APTT 40.9 H (22.0-30.0) sec Sodium (137-145) mmol/L Potassium (3.5-5.1) mmol/L Chloride (98-107) mmol/L Carbon Dioxide (22-30) mmol/L Anion Gap mmol/L BUN (7-17) mg/dL Creatinine (0.52-1.04) mg/dL Est GFR (CKD-EPI)AfAm (>60 ml/min/1.73 sqM) Est GFR (CKD-EPI)NonAf (>60 ml/min/1.73 sqM) Glucose (74-99) mg/dL Calcium (8.4-10.2) mg/dL Magnesium (1.6-2.3) mg/dL Total Bilirubin (0.2-1.3) mg/dL AST (14-36) U/L ALT (9-52) U/L Alkaline Phosphatase (38-126) U/L Total Protein (6.3-8.2) g/dL Albumin (3.5-5.0) g/dL Urine Color Light Yellow Urine Appearance Clear (Clear) Urine pH 7.0 (5.0-8.0) Ur Specific Dutton 1.006 (1.001-1.035) Urine Protein Negative (Negative) Urine Glucose (UA) Negative (Negative) Urine Ketones Negative (Negative) Urine Blood Negative (Negative) Urine Nitrite Negative (Negative) Urine Bilirubin Negative (Negative) Urine Urobilinogen <2.0 (<2.0) mg/dL Ur Leukocyte Esterase Negative (Negative) 10/01/17 10/01/17 Range/Units 15:16 15:16 WBC (3.8-10.6) k/uL RBC (3.80-5.40) m/uL Hgb (11.4-16.0) gm/dL Hct (34.0-46.0) % MCV (80.0-100.0) fL MCH (25.0-35.0) pg MCHC (31.0-37.0) g/dL RDW (11.5-15.5) % Plt Count (150-450) k/uL Neutrophils % % Lymphocytes % % Monocytes % % Eosinophils % % Basophils % % Neutrophils # (1.3-7.7) k/uL Lymphocytes # (1.0-4.8) k/uL Monocytes # (0-1.0) k/uL Eosinophils # (0-0.7) k/uL Basophils # (0-0.2) k/uL PT (9.0-12.0) sec INR (<1.2) APTT (22.0-30.0) sec Sodium 136 L (137-145) mmol/L Potassium 4.1 (3.5-5.1) mmol/L Chloride 97 L (98-107) mmol/L Carbon Dioxide 34 H (22-30) mmol/L Anion Gap 5 mmol/L BUN 23 H (7-17) mg/dL Creatinine 0.70 (0.52-1.04) mg/dL Est GFR (CKD-EPI)AfAm >90 (>60 ml/min/1.73 sqM) Est GFR (CKD-EPI)NonAf >90 (>60 ml/min/1.73 sqM) Glucose 104 H (74-99) mg/dL Calcium 9.1 (8.4-10.2) mg/dL Magnesium 2.1 (1.6-2.3) mg/dL Total Bilirubin 1.7 H (0.2-1.3) mg/dL AST 35 (14-36) U/L ALT 26 (9-52) U/L Alkaline Phosphatase 165 H (38-126) U/L Total Protein 7.2 (6.3-8.2) g/dL Albumin 3.4 L (3.5-5.0) g/dL Urine Color Urine Appearance (Clear) Urine pH (5.0-8.0) Ur Specific Dutton (1.001-1.035) Urine Protein (Negative) Urine Glucose (UA) (Negative) Urine Ketones (Negative) Urine Blood (Negative) Urine Nitrite (Negative) Urine Bilirubin (Negative) Urine Urobilinogen (<2.0) mg/dL Ur Leukocyte Esterase (Negative) Disposition Clinical Impression: Supratherapeutic INR Disposition: ADMITTED IP TO THIS HOSP Condition: Stable Is patient prescribed a controlled substance at d/c from ED?: No Referrals: Melody Arce DO [Primary Care Provider] - 1-2 days Decision to Admit Reason: Admit from [facility] Decision Date: 10/08/17 Decision Time: 16:15
[2017-10-01 14:55] LABS: Partial Thromboplastin Time 40.9 sec (22.0-30.0)
[2017-10-01 14:57] LABS: Basophils % (A) 0 %; Eosinophils # (A) 0.2 k/uL (0-0.7); Eosinophils % (A) 3 %; HGB 12.4 gm/dL (11.4-16.0); Lymphocytes % (A) 14 %; MCH 30.2 pg (25.0-35.0); MCHC 31.1 g/dL (31.0-37.0); MCV 97.3 fL (80.0-100.0); Mean Platelet Volume 6.9; Monocytes # (A) 0.5 k/uL (0-1.0); Monocytes % (A) 7 %; Neutrophils # (A) 5.4 k/uL (1.3-7.7); Neutrophils % (A) 75 %; Platelet Count 157 k/uL (150-450); RBC 4.11 m/uL (3.80-5.40); RDW 13.9 % (11.5-15.5); WBC 7.2 k/uL (3.8-10.6)
[2017-10-01 15:00] LABS: Prothrombin Time 49.1 sec (9.0-12.0)
[2017-10-01 15:10] LABS: Appearance,Urine Clear (Clear); Bilirubin,Urine Negative (Negative); Blood,Urine Negative (Negative); Color,Urine Light Yellow; Glucose,Urine (UA) Negative (Negative); Ketones,Urine Negative (Negative); Leukocyte Esterase,Urine Negative (Negative); Nitrite,Urine Negative (Negative); Protein,Urine Negative (Negative); Specific Gravity,Urine 1.006 (1.001-1.035); Urobilinogen,Urine <2.0 mg/dL (<2.0)
[2017-10-01 15:21] LABS: INR 5.4 (<1.2)
[2017-10-01 15:53] LABS: ALT 26 U/L (9-52); AST 35 U/L (14-36); Albumin 3.4 g/dL (3.5-5.0); Alkaline Phosphatase 165 U/L (38-126); Anion Gap 5 mmol/L; Blood Urea Nitrogen 23 mg/dL (7-17); Calcium 9.1 mg/dL (8.4-10.2); Carbon Dioxide 34 mmol/L (22-30); Chloride 97 mmol/L (98-107); Glucose 104 mg/dL (74-99); Potassium 4.1 mmol/L (3.5-5.1); Sodium 136 mmol/L (137-145); Total Bilirubin 1.7 mg/dL (0.2-1.3); Total Protein 7.2 g/dL (6.3-8.2)
[2017-10-01] MEDS ORDERED: ACETAMINOPHEN TAB 325 MG TAB PO PRN (16:29)
[2017-10-01] MEDS ORDERED: NALOXONE 0.4 MG/ML 1 ML VIAL IV PRN (16:29)
--- NOTE | 2017-10-01 16:46 | XR ---
EXAMINATION TYPE: XR chest 1V portable DATE OF EXAM: 10/01/2017 COMPARISON: 09/01/2017 INDICATION: Pain TECHNIQUE: Single frontal view of the chest is obtained. FINDINGS: The heart size is enlarged. The pulmonary vasculature is normal. Mild infiltrate is along the left diaphragm with some tenting present. Correlate for atelectasis. IMPRESSION: 1. Mild atelectasis at the left lung base. 2. Cardiomegaly
--- NOTE | 2017-10-01 16:58 | HP ---
HISTORY AND PHYSICAL DATE OF SERVICE: 10/01/2017. CHIEF COMPLAINT: Bruises and elevated PT/INR. HISTORY OF PRESENT ILLNESS: This 67-year-old woman with a past medical history of multiple medical problems including atrial fibrillation, CAD, CVA, TIA, hypertension, hyperlipidemia, seizure disorder, appendectomy, cardiac valve replacement, being followed by primary physician Dr. Da Silva in the outpatient setting, is apparently on Coumadin. The PT/INR was found to be more than 10 in the outpatient setting, and the patient had had significant bruises. The patient was sent to [facility] Emergency Room for further evaluation and treatment. There is no history of chest pain. No history of palpitations. No history of headache, loss of conscious or seizures. PAST MEDICAL HISTORY: History of atrial fibrillation, history of hypertension, hyperlipidemia, seizure disorder, valve repair and replacement. MEDICATIONS: Home medications are: 1. Keppra 1000 mg p.o. b.i.d. 2. Coumadin 5 mg. 3. Aldactone 25 mg p.o. b.i.d. 4. Septra 100 mg p.o. daily. 5. Senna 17.2 mg p.o. at bedtime. 6. Potassium 90 mg p.o. at bedtime. 8. MS Contin 30 mg p.o. b.i.d. 9. Milk of magnesia 2.4 g daily. 10.Gabapentin 600 mg p.o. b.i.d. 11.Vitamin D3, 5000 daily. 12.Bumex 1 mg p.o. b.i.d. 13.Dulcolax 10 mg rectally p.r.n. 14.Lipitor 40 mg at bedtime. 15.Ecotrin 81 mg b.i.d. 16.Aspercreme p.o. t.i.d. 18.Tylenol 650 every 6 hours p.r.n. ALLERGIES: CODEINE, ATIVAN. FAMILY HISTORY: History of brain cancer and lung cancer. SOCIAL HISTORY: No history of smoking. No alcohol intake. REVIEW OF SYSTEMS: ENT: No diminished hearing or vision. CARDIOVASCULAR: As mentioned. RESPIRATORY: As mentioned. GI: No nausea or vomiting. : No dysuria. NERVOUS SYSTEM: No numbness or weakness. MUSCULOSKELETAL: As mentioned. ENDOCRINE: No history of diabetes or hypothyroidism. DERMATOLOGY: As mentioned. RHEUMATOLOGY: Negative. PSYCH: As mentioned. PHYSICAL EXAM: Patient is alert, oriented x3. Pulse is 73, blood pressure 142/60, respiration 18, temperature 98.2, pulse ox 98 percent on room air. HEENT: Oral mucosa moist. NECK: No jugular venous distention. No lymph node enlargement. CARDIOVASCULAR: S1 and S2 muffled. LUNGS: Breath sounds diminished in the bases. A few scattered rhonchi and crackles. ABDOMEN: Soft, nontender. No mass palpable. LEGS: No edema, no swelling. NERVOUS SYSTEM: Higher functions as mentioned. Moves all limbs equally. LYMPHATICS: No lymph nodes palpable in the neck or axillae. SKIN: No ulcer, no rash. No bleeding. Ecchymosis present. LABS: INR is 5.2, hemoglobin is 10.2, sodium 136, bilirubin is 1.7. ASSESSMENT: 1. Coumadin coagulopathy. 2. Diffuse bruises. 3. Aortic valve replacement. 4. History of atrial fibrillation. 5. History of coronary artery disease, cerebrovascular accident, transient ischemic attack, hypertension, hyperlipidemia, seizure disorder, history of falls and concussion. 6. Depression. RECOMMENDATIONS AND DISCUSSION: In this 67-year-old woman who presented with multiple complex medical issues, at this time I recommend to continue current management and symptomatic treatment. Continue holding Coumadin for a couple days. I would recommend monitoring PT/INR as outpatient more closely. Continue the rest of the medications. Further recommendations to follow. GIA / FARHAT: [id number] / POLO
[2017-10-01] MEDS ORDERED: MAGNESIUM HYDROXIDE 2,400 MG/10 ML CUP PO PRN (17:48)
[2017-10-01] MEDS: BUMETANIDE 1 MG TAB PO SCH ×2 (21:43→21:45)
[2017-10-01] MEDS: SENNOSIDES 8.6 MG TAB PO SCH (21:45)
[2017-10-01] MEDS: SPIRONOLACTONE 25 MG TAB PO SCH (21:46)
[2017-10-01] MEDS: levETIRAcetam 500 MG TAB PO SCH (21:46)
[2017-10-01] MEDS: ATORVASTATIN 40 MG TAB PO SCH (21:46)
[2017-10-01] MEDS: ASPIRIN 81 MG PO SCH (21:46)
[2017-10-01] MEDS: METOPROLOL TARTRATE 12.5 MG TAB PO SCH (21:46)
[2017-10-01] MEDS: MORPHINE SULFATE ER 30 MG TABLET PO SCH (21:47)
[2017-10-01] MEDS: GABAPENTIN 300 MG CAP PO SCH (21:49)
[2017-10-01] MEDS: METHYL SALICYLATE/MENTHOL CREAM 5 OZ TOPICAL SCH (21:51)
[2017-10-02] MEDS: POTASSIUM 99MG PO SCH ×2 (02:30→22:15)
[2017-10-02 07:32] LABS: INR 1.9 (<1.2); Prothrombin Time 17.5 sec (9.0-12.0)
[2017-10-02 07:37] LABS: Basophils % (A) 0 %; Eosinophils # (A) 0.1 k/uL (0-0.7); Eosinophils % (A) 2 %; HCT 34.6 % (34.0-46.0); HGB 11.4 gm/dL (11.4-16.0); Lymphocytes # (A) 1.1 k/uL (1.0-4.8); Lymphocytes % (A) 18 %; MCH 31.9 pg (25.0-35.0); MCHC 32.9 g/dL (31.0-37.0); MCV 97.1 fL (80.0-100.0); Mean Platelet Volume 7.1; Monocytes # (A) 0.5 k/uL (0-1.0); Monocytes % (A) 8 %; Neutrophils # (A) 4.2 k/uL (1.3-7.7); Neutrophils % (A) 70 %; Platelet Count 145 k/uL (150-450); RBC 3.56 m/uL (3.80-5.40); RDW 13.7 % (11.5-15.5)
[2017-10-02 07:43] LABS: ALT 22 U/L (9-52); AST 31 U/L (14-36); Alkaline Phosphatase 145 U/L (38-126); Anion Gap 5 mmol/L; Blood Urea Nitrogen 21 mg/dL (7-17); Calcium 8.6 mg/dL (8.4-10.2); Carbon Dioxide 34 mmol/L (22-30); Chloride 98 mmol/L (98-107); Glucose 91 mg/dL (74-99); Potassium 3.7 mmol/L (3.5-5.1); Sodium 137 mmol/L (137-145); Total Bilirubin 2.1 mg/dL (0.2-1.3); Total Protein 6.4 g/dL (6.3-8.2)
[2017-10-02] MEDS: SERTRALINE 100 MG TAB PO SCH (08:17)
[2017-10-02] MEDS: METOPROLOL TARTRATE 12.5 MG TAB PO SCH ×2 (08:17→22:15)
[2017-10-02] MEDS: levETIRAcetam 500 MG TAB PO SCH ×2 (08:17→22:14)
[2017-10-02] MEDS: SPIRONOLACTONE 25 MG TAB PO SCH ×2 (08:17→22:12)
[2017-10-02] MEDS: GABAPENTIN 300 MG CAP PO SCH ×2 (08:17→22:14)
[2017-10-02] MEDS: CHOLECALCIFEROL 1,000 UNIT TAB PO SCH (08:18)
[2017-10-02] MEDS: MORPHINE SULFATE ER 30 MG TABLET PO SCH ×2 (08:18→22:13)
[2017-10-02] MEDS: METHYL SALICYLATE/MENTHOL CREAM 5 OZ TOPICAL SCH ×3 (08:19→22:12)
--- NOTE | 2017-10-02 09:14 | CONS ---
CONSULTATION Mrs. Duncan is a 67-year-old female who is followed by physician out of town, has a history of mitral valve replacement with a prosthetic mitral valve, history of atrial fibrillation, history of stroke who presented with a bruise and was noted to have an elevated INR. She is not active physically, has no chest discomfort. She has some dyspnea and peripheral edema that has been chronic. No PND, no orthopnea, and no dizziness, palpitation, or syncope. She does not recall having any injury on her arm where the bruise is. Her mitral valve repair placement was done over 20 years ago for mitral regurgitation and rheumatic valve disease. She has no history of obstructive coronary artery disease. Her coronary risk factors remarkable for history of hypertension. She is nondiabetic. She is hyperlipidemic and nonsmoker. MEDICATIONS: Her medications include Coumadin, spironolactone 25 mg twice a day, MS Contin, metoprolol tartrate 12.5 mg twice a day, Bumex 1 mg twice a day, Lipitor 40 mg daily, aspirin 81 mg daily and levetiracetam. REVIEW OF SYSTEMS: RESPIRATORY SYSTEM: She has no recent wheezing. No cough. No history of obstructive lung disease. GI SYSTEM: No recent GI bleed. No peptic ulcer disease. SYSTEM: No dysuria or hematuria. NERVOUS SYSTEM: She had history of stroke with left-sided weakness and a history of seizure. PHYSICAL EXAMINATION: She is a 67-year-old female, alert, oriented, in no apparent distress. Blood pressure 100/50 with the heart rate in the 60s. HEAD: Normocephalic. EYES: Sclerae anicteric. NECK: Good upstroke. No bruit. No jugular venous distention. LUNGS: Clear to auscultation. HEART: Irregular, irregular, S1, S2 with prosthetic mitral sound and systolic murmur. No diastolic murmur. ABDOMEN: Soft, nontender. EXTREMITIES: Chronic stasis more noted in the left lower extremity with chronic skin changes. Right upper extremity noted with an ecchymosis noted. LAB DATA: Lab data revealed INR of 1.9, yesterday 5.4. Hemoglobin of 11.4. BUN and creatinine 21 and 0.75. Her hemoglobin on presentation was 12.4. Her EKG revealed atrial fibrillation with occasional PVCs and nonspecific ST-T wave changes. Her chest x-ray shows no acute infiltrate with mild atelectasis. IMPRESSION: 1. A bruise related to an elevated INR. 2. Status post mitral valve replacement. 3. Atrial fibrillation persistent with rate controlled. 4. History of hypertension. 5. Hyperlipidemia. RECOMMENDATION: From the cardiac standpoint, the patient will resume her Coumadin. She should be able to be discharged home today and follow with her primary care physician. She has been seen by Dr. June Diop in the past. Thank you for this consult. We will follow with you. MMODL / IJN: [id number] /
[2017-10-02] MEDS: BUMETANIDE 1 MG TAB PO SCH (17:06)
--- NOTE | 2017-10-02 17:50 | PN ---
PROGRESS NOTE DATE OF SERVICE: 10/02/2017. This 67-year-old woman who was admitted with Coumadin coagulopathy is being closely monitored. No chest pain. No palpitations. No fever. Patient had diffuse bruises. INR is about 1.9. EXAM: Alert and oriented x3. Pulse 54, blood pressure 93/42, respirations 16, temperature 98.2, pulse ox 91% on 3 L. HEENT: Conjunctivae normal. NECK: No jugular venous distention. CARDIOVASCULAR: S1, S2. RESPIRATORY: Breath sounds diminished in the bases. No rhonchi, no crackles. ABDOMEN: Soft, nontender. LEGS: No edema. NERVOUS SYSTEM: No focal deficits. SKIN: Bruise present. LABS: WBC 6, hemoglobin 11.4, INR 1.9, sodium 137. ASSESSMENT: 1. Coumadin coagulopathy. 2. Diffuse bruises. 3. Aortic valve replacement. 4. History of atrial fibrillation. 5. History of coronary artery disease. 6. History of cerebrovascular accident, transient ischemic attack. 7. Hypertension. 8. Hyperlipidemia. 9. Seizure disorder. 10.History of falls and concussion. 11.History of depression. 12.FULL CODE. RECOMMENDATIONS AND DISCUSSION: In this 67-year-old woman who presented with multiple complex medical issues, we will monitor the patient closely. Continue the current management and symptomatic treatment. At this time I recommend monitor the patient closely. Coumadin 5 mg is given today. Monitor PT/INR. PT, OT evaluation. Otherwise, possible return to ECF soon. Further recommendations to follow. GIA / ИРИНАN: [id number] /
[2017-10-02] MEDS ORDERED: WARFARIN 5 MG TAB PO ONE (18:00)
[2017-10-02] MEDS ORDERED: WARFARIN 2 MG TAB PO SCH (18:00)
[2017-10-02] MEDS: SENNOSIDES 8.6 MG TAB PO SCH (22:12)
[2017-10-02] MEDS: WARFARIN 2 MG TAB PO SCH (22:13)
[2017-10-02] MEDS: ASPIRIN 81 MG PO SCH (22:14)
[2017-10-02] MEDS: ATORVASTATIN 40 MG TAB PO SCH (22:14)
[2017-10-03] MEDS ORDERED: BISACODYL 10 MG SUPP RECTAL PRN (08:00)
--- NOTE | 2017-10-03 08:12 | PN ---
PROGRESS NOTE Mrs. Duncan 67-year-old female history of mitral valve replacement and atrial fibrillation, who presented with Mathew and coagulopathy. She is doing well today. She still has some bruising, but not as bad. She denies any chest pain. No dizziness. No palpitation. Her breathing is stable. She continues to be on aspirin 81 mg daily Lipitor 40 mg daily, Bumex 1 mg twice a day, Keppra, metoprolol tartrate 12.5 mg twice a day, sertraline, Aldactone 25 mg daily, and she received 5 mg of Coumadin yesterday. PHYSICAL EXAMINATION: Blood pressure 105/50 with a heart rate in the 60s. LUNGS: Clear. Heart S1, S2. No S3 with prosthetic mitral sound with systolic murmur. ABDOMEN: Soft nontender. EXTREMITIES: No edema. Bruise noted on the right arm. LABORATORY DATA: Lab data none done today. IMPRESSION: 1. Coagulopathy with bruising. 2. Status post mitral valve replacement with a prosthetic mitral valve and history of atrial fibrillation. 3. History of stroke. 4. Hyperlipidemia. 5. Hypertension. RECOMMENDATION: We will continue present therapy. I will check her INR today. She should be able to be discharged home today and follow up as an outpatient with her primary care physician. MMODL / IJN: [id number] /
[2017-10-03 09:24] LABS: INR 1.7 (<1.2); Prothrombin Time 15.7 sec (9.0-12.0)
[2017-10-03] MEDS: MORPHINE SULFATE ER 30 MG TABLET PO SCH (09:32)
[2017-10-03] MEDS: CHOLECALCIFEROL 1,000 UNIT TAB PO SCH (09:32)
[2017-10-03] MEDS: levETIRAcetam 500 MG TAB PO SCH (09:33)
[2017-10-03] MEDS: GABAPENTIN 300 MG CAP PO SCH (09:33)
[2017-10-03] MEDS: METHYL SALICYLATE/MENTHOL CREAM 5 OZ TOPICAL SCH ×2 (09:33→18:07)
[2017-10-03] MEDS: SPIRONOLACTONE 25 MG TAB PO SCH (09:33)
[2017-10-03] MEDS: SERTRALINE 100 MG TAB PO SCH (09:33)
[2017-10-03] MEDS: BUMETANIDE 1 MG TAB PO SCH ×2 (09:33→16:49)
[2017-10-03] MEDS: METOPROLOL TARTRATE 12.5 MG TAB PO SCH (09:34)
[2017-10-03 16:19] VITALS: BP 95/58; PULSE 56; RESP 16; TEMP 98.7
--- NOTE | 2017-10-03 16:48 | P.DS ---
Providers Date of admission: 10/01/17 16:47 Expected date of discharge: 10/03/17 Attending physician: Vin Ojeda Consults: 10/01/17 17:50 Consult Physician Routine Consulting Provider: Ace Bosch Consult Reason/Comments: coumadin coagulopathy Do you want consulting provider notified?: Yes Primary care physician: Melody Arce Hospital Course: Final Diagnoses: 1. Coumadin coagulopathy with diffuse bruising 2. Status post mitral valve replacement with a prosthetic mitral valve 3. History of atrial fibrillation 4. CAD 5. History of CVA, TIA 6. Essential hypertension 7. Hyperlipidemia 8. Seizure disorder 9. History of falls and concussion 10. History of depression Hospital course this is a 67-year-old female admitted with Coumadin coagulopathy , diffuse bruising, and multiple other medical issues. Evaluated by cardiology. Coumadin dosing been decreased to 4 mg daily. Significant clinical improvement. Cleared by cardiology for discharge. Patient is being discharged to subacute rehab in a stable condition with guarded prognosis. Exam: Alert and oriented 3, no acute distress.CV: S1, S2,LUNGS: Bilateral bases diminished, no rhonchi, no crackles.ABD: Soft, nontender, positive bowel sounds.Neuro: No focal deficit. The impression and plan of care has been dictated as directed. : I performed a history and examination of this patient, discussed the same with the dictator. I agree with the dictator's note ,documented as a scribe. Any additional findings or plans will be noted. Time taken: 35 minutes Patient Condition at Discharge: Stable Plan - Discharge Summary Discharge Rx Participant: No New Discharge Prescriptions: New Warfarin [Coumadin] 4 mg PO DAILY #1 tab Continue Sertraline HCl 100 mg PO DAILY Atorvastatin Calcium [Lipitor] 40 mg PO HS Gabapentin 600 mg PO BID levETIRAcetam 1,000 mg PO BID Spironolactone [Aldactone] 25 mg PO BID Bumetanide [BUMEX] 1 mg PO BID Aspirin [Adult Low Dose Aspirin EC] 81 mg PO HS Cholecalciferol [Vitamin D3] 5,000 unit PO DAILY Potassium 99 mg PO HS Metoprolol Tartrate [Lopressor] 12.5 mg PO BID tab Bisacodyl [Dulcolax] 10 mg RECTAL Q72H PRN PRN Reason: Constipation Acetaminophen Tab [Tylenol] 650 mg PO Q6H PRN PRN Reason: Pain Magnesium Hydroxide [Milk of Magnesia] 2,400 mg PO DAILY PRN PRN Reason: Constipation Aspercreme W/Lidocaine 4% 1 applic TOPICAL TID Amino Acids/Protein Hydrolys [Pro-Stat Supplement] 30 ml PO BID Sennosides [Senna] 17.2 mg PO HS@1999 Morphine Sulfate ER [Ms Contin] 30 mg PO BID@ #6 tablet Discontinued Warfarin Sodium [Coumadin] 5 mg PO DIRECTED Discharge Medication List Atorvastatin Calcium [Lipitor] 40 mg PO HS 09/06/15 [History] Sertraline HCl 100 mg PO DAILY 09/06/15 [History] Gabapentin 600 mg PO BID 09/13/15 [History] Spironolactone [Aldactone] 25 mg PO BID 11/23/16 [History] levETIRAcetam 1,000 mg PO BID 11/23/16 [History] Aspirin [Adult Low Dose Aspirin EC] 81 mg PO HS 07/24/17 [History] Bumetanide [BUMEX] 1 mg PO BID 07/24/17 [History] Cholecalciferol [Vitamin D3] 5,000 unit PO DAILY 08/31/17 [History] Potassium 99 mg PO HS 08/31/17 [History] Metoprolol Tartrate [Lopressor] 12.5 mg PO BID tab 09/05/17 [Rx] Acetaminophen Tab [Tylenol] 650 mg PO Q6H PRN 10/01/17 [History] Amino Acids/Protein Hydrolys [Pro-Stat Supplement] 30 ml PO BID 10/01/17 [ History] Aspercreme W/Lidocaine 4% 1 applic TOPICAL TID 10/01/17 [History] Bisacodyl [Dulcolax] 10 mg RECTAL Q72H PRN 10/01/17 [History] Magnesium Hydroxide [Milk of Magnesia] 2,400 mg PO DAILY PRN 10/01/17 [History] Sennosides [Senna] 17.2 mg PO HS@199910/01/17 [History] Morphine Sulfate ER [Ms Contin] 30 mg PO BID@ #6 tablet 10/02/17 [Rx] Warfarin [Coumadin] 4 mg PO DAILY #1 tab 10/02/17 [Rx] Follow up Appointment(s)/Referral(s): Rashawn Diop MD [STAFF PHYSICIAN] - 1 Week Melody Arce DO [Primary Care Provider] - 3 Days (After discharge from subacute rehab) Kale Zapata MD [REFERRING] - 3 Days (While at EC) Ambulatory/Diagnostic Orders: Prothrombin Time INR [LAB.AMB] Time Frame: 3 Days, Location: None Selected Patient Instructions/Handouts: Elevated INR (DC) Activity/Diet/Wound Care/Special Instructions: [facility] Diet: Coumadin diet PT/INR daily CBC, BMP in 3 days Discharge Disposition: TRANSFER TO SNF/ECF
[2017-10-03] MEDS: WARFARIN 2 MG TAB PO SCH (16:50)
== END 2017-10-03 19:35 ==
LOC: EC 13:18 → 3OBS 16:47
PROVIDERS: ADMIT Hospitalist; ATTEND Hospitalist
DX: R79.1 Abnormal coagulation profile (principal); R23.3 Spontaneous ecchymoses; T45.515A Adverse effect of anticoagulants, initial encounter; I48.1 Persistent atrial fibrillation; Z95.2 Presence of prosthetic heart valve; I11.9 Hypertensive heart disease without heart failure; I25.10 Atherosclerotic heart disease of native coronary artery without angina pectoris; I69.354 Hemiplegia and hemiparesis following cerebral infarction affecting left non-dominant side; G89.29 Other chronic pain; M54.9 Dorsalgia, unspecified; I48.91 Unspecified atrial fibrillation; G40.909 Epilepsy, unspecified, not intractable, without status epilepticus; F32.9 Major depressive disorder, single episode, unspecified; E78.5 Hyperlipidemia, unspecified; Z87.01 Personal history of pneumonia (recurrent); Z79.82 Long term (current) use of aspirin; Z79.01 Long term (current) use of anticoagulants; Z79.891 Long term (current) use of opiate analgesic; Z79.899 Other long term (current) drug therapy; Z88.5 Allergy status to narcotic agent; Z88.8 Allergy status to other drugs, medicaments and biological substances; Z87.81 Personal history of (healed) traumatic fracture; Z91.81 History of falling; Z90.49 Acquired absence of other specified parts of digestive tract; Z90.89 Acquired absence of other organs; Z80.1 Family history of malignant neoplasm of trachea, bronchus and lung; Z82.49 Family history of ischemic heart disease and other diseases of the circulatory system; Z81.8 Family history of other mental and behavioral disorders; Z80.8 Family history of malignant neoplasm of other organs or systems
CPT/HCPCS: 99285 ×2; 36415; 93005; 97162; 97166; 80053 ×2; 83735; 85025 ×2; 85610 ×3; 85730; 81003; 71045; G0378 ×3

== ENCOUNTER 2018-02-20 17:05 | Emergency (ER) | payer MEDICARE ==
--- NOTE | 2018-02-20 17:45 | ED ---
General Adult HPI - General Chief complaint: Fall Stated complaint: Fall Time Seen by Provider: 02/20/18 17:21 Source: patient, EMS, RN notes reviewed Mode of arrival: EMS - History of Present Illness Initial comments: 67-year-old female with a past medical history of A. fib, CAD, CVA, hyperlipidemia presents to the emergency department for mechanical fall occurring yesterday. Patient states she was sitting in his shower chair when she bent down to pick something up. She states the brakes were not on the wheels and the chair tipped forward. She states she fell and hit her head and back. Patient states her neck and lower back have been hurting since that time. She states her nursing staff at [facility] wanted her to come be evaluated because her eyes looked dilated. She is taking Coumadin. She denies any loss of consciousness. She denies any chest or abdominal pain. She denies any extremity pain. No other injuries besides hitting her head neck and back. Denies CARVER at this time. Patient has no other complaints at this time including shortness of breath, chest pain, abdominal pain, nausea or vomiting, headache, or visual changes. - Related Data Home Medications Medication Instructions Recorded Confirmed Atorvastatin Calcium [Lipitor] 40 mg PO HS 09/06/15 02/20/18 Sertraline HCl 100 mg PO DAILY 09/06/15 02/20/18 Gabapentin 600 mg PO BID 09/13/15 02/20/18 Spironolactone [Aldactone] 25 mg PO DAILY 11/23/16 02/20/18 levETIRAcetam 1,000 mg PO BID 11/23/16 02/20/18 Bumetanide [BUMEX] 0.5 mg PO BID 07/24/17 02/20/18 Cholecalciferol [Vitamin D3] 5,000 unit PO DAILY 08/31/17 02/20/18 Acetaminophen Tab [Tylenol] 650 mg PO Q6H PRN 10/01/17 02/20/18 Amino Acids/Protein Hydrolys 30 ml PO BID 10/01/17 02/20/18 [Pro-Stat Supplement] Bisacodyl [Dulcolax] 10 mg RECTAL Q72H PRN 10/01/17 02/20/18 Magnesium Hydroxide [Milk of 2,400 mg PO DAILY PRN 10/01/17 02/20/18 Magnesia] Sennosides [Senna] 17.2 mg PO HS 10/01/17 02/20/18 Calcium Polycarbophil [Fiber-Lax] 1,250 mg PO BID 02/20/18 02/20/18 Lidocaine 4% Cream [Lmx 4] 1 applic TOPICAL TID 02/20/18 02/20/18 Meclizine [Antivert] 25 mg PO Q6H PRN 02/20/18 02/20/18 Morphine Sulfate ER [Ms Contin] 30 mg PO HS 02/20/18 02/20/18 Mylanta 30 ml PO Q4H PRN 02/20/18 02/20/18 Potassium Chloride 8 meq PO DAILY 02/20/18 02/20/18 Promethazine [Phenergan] 12.5 mg PO Q8H PRN 02/20/18 02/20/18 Warfarin [Coumadin] 1.5 mg PO HS 02/20/18 02/20/18 Warfarin [Coumadin] 2 mg PO HS 02/20/18 02/20/18 Previous Rx's Medication Instructions Recorded Metoprolol Tartrate [Lopressor] 12.5 mg PO BID tab 09/05/17 Allergies Allergy/AdvReac Type Severity Reaction Status Date / Time codeine Allergy Chest Pain Verified 02/20/18 17:30 lorazepam [From Ativan] AdvReac GIVES THE Verified 02/20/18 17:30 OPPOSITE EFFECT Review of Systems ROS Statement: Those systems with pertinent positive or pertinent negative responses have been documented in the HPI. ROS Other: All systems not noted in ROS Statement are negative. Past Medical History Past Medical History: Atrial Fibrillation, Coronary Artery Disease (CAD), CVA/ TIA, Hyperlipidemia, Pneumonia, Seizure Disorder Additional Past Medical History / Comment(s): FALLS, CONCUSSION, STROKE AFFECTED LT SIDE UNABLE TO USE LT ARM AND STATED FOOT DRAGS TE. Left shoulder fracture 2015, 2018.bakers cyst behind rt knee. pt stated she had a boost pne vaccine 2018 not sure what month and write unalb to verify date at time of this admit 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 VALVE REPLACEMENT" Past Anesthesia/Blood Transfusion Reactions: No Reported Reaction Past Psychological History: Depression Smoking Status: Never smoker - Past Family History Father Family Medical History: Cancer Additional Family Medical History / Comment(s): BRAIN AND LUNG CANCER Mother Family Medical History: Coronary Artery Disease (CAD), Dementia Additional Family Medical History / Comment(s): PT COULDN'T REMEMBER WHAT MOM FROM General Exam General appearance: alert, in no apparent distress Head exam: Present: atraumatic, normocephalic, normal inspection Eye exam: Present: normal appearance, PERRL, EOMI. Absent: scleral icterus, conjunctival injection, periorbital swelling ENT exam: Present: normal exam, mucous membranes moist Neck exam: Present: normal inspection, tenderness (generalized neck tenderness including c spine), full ROM. Absent: meningismus, lymphadenopathy Respiratory exam: Present: normal lung sounds bilaterally. Absent: respiratory distress, wheezes, rales, rhonchi, stridor Cardiovascular Exam: Present: regular rate, normal rhythm, normal heart sounds. Absent: systolic murmur, diastolic murmur, rubs, gallop, clicks GI/Abdominal exam: Present: soft, normal bowel sounds. Absent: distended, tenderness, guarding, rebound, rigid Extremities exam: Present: other. Absent: tenderness (no tenderness noted on all 4 extremities), joint swelling (no acute edema, ecchymosis, signs of truama on extremities. patient does have non pitting edema noted in LLE that she states is chronic) Back exam: Present: vertebral tenderness (gneralized lumbar spine tenderness, no midline tenderness) Course Vital Signs 02/20/18 02/20/18 02/20/18 17:29 17:48 19:34 Temperature 97.6 F Pulse Rate 42 L 58 L 60 Respiratory 17 18 Rate Blood Pressure 101/55 104/65 O2 Sat by Pulse 94 L 94 L Oximetry Medical Decision Making - Medical Decision Making 67-year-old female with past medical history of A. fib, CAD, CVA, hyperlipidemia presents to the emergency department for mechanical fall. Patient was in the shower chair when she bent forward to pick something up in the chair slipped backwards because the brakes were not on. She states she fell and hit the back of her head as well as her neck and lower back. She denies any thoracic spine pain. On exam patient does have some generalized lumbar spine tenderness as well as cervical spine tenderness. No ecchymosis whatsoever noted on the back. No tenderness on the thoracic spine. No loss of consciousness. Patient is taking Coumadin. INR currently 4.1. Patient was advised to skip the next 2 days of Coumadin dosing and follow up with primary care for a recheck. CBC and CMP otherwise unremarkable. CT brain shows cerebral atrophy and old infarcts. No change. No fracture in the C-spine. No fracture in the lumbar spine on CT. Vitals are acceptable. Patient initially bradycardic which did improve. Asymptomatic. Patient discharged home to follow up with primary for INR as well as bradycardia. - Lab Data Result diagrams: 02/20/18 17:50 02/20/18 17:50 Lab Results 02/20/18 02/20/18 02/20/18 Range/Units 17:50 17:50 17:50 WBC 4.7 (3.8-10.6) k/uL RBC 3.79 L (3.80-5.40) m/uL Hgb 12.0 (11.4-16.0) gm/dL Hct 37.8 (34.0-46.0) % MCV 99.5 (80.0-100.0) fL MCH 31.5 (25.0-35.0) pg MCHC 31.7 (31.0-37.0) g/dL RDW 14.3 (11.5-15.5) % Plt Count 155 (150-450) k/uL Neutrophils % 63 % Lymphocytes % 22 % Monocytes % 8 % Eosinophils % 6 % Basophils % 0 % Neutrophils # 3.0 (1.3-7.7) k/uL Lymphocytes # 1.0 (1.0-4.8) k/uL Monocytes # 0.4 (0-1.0) k/uL Eosinophils # 0.3 (0-0.7) k/uL Basophils # 0.0 (0-0.2) k/uL PT 39.1 H (9.0-12.0) sec INR 4.1 H (<1.2) APTT 41.6 H (22.0-30.0) sec Sodium 139 (137-145) mmol/L Potassium 4.0 (3.5-5.1) mmol/L Chloride 102 (98-107) mmol/L Carbon Dioxide 32 H (22-30) mmol/L Anion Gap 5 mmol/L BUN 19 H (7-17) mg/dL Creatinine 0.64 (0.52-1.04) mg/dL Est GFR (CKD-EPI)AfAm >90 (>60 ml/min/1.73 sqM) Est GFR (CKD-EPI)NonAf >90 (>60 ml/min/1.73 sqM) Glucose 118 H (74-99) mg/dL Calcium 8.7 (8.4-10.2) mg/dL Total Bilirubin 1.5 H (0.2-1.3) mg/dL AST 22 (14-36) U/L ALT 20 (9-52) U/L Alkaline Phosphatase 93 (38-126) U/L Total Protein 6.3 (6.3-8.2) g/dL Albumin 3.1 L (3.5-5.0) g/dL Disposition Clinical Impression: Head injury, Back pain Disposition: HOME SELF-CARE Condition: Good Instructions: Fall Prevention for Older Adults (ED), Head Injury (ED), Concussion (ED) Additional Instructions: Please take Tylenol for pain. Do not take Coumadin for the next 2 days and make sure to follow up with primary within 2 days for a recheck of INR. Return to the emergency department if you have any worsening symptoms. Is patient prescribed a controlled substance at d/c from ED?: No Referrals: Kale Zapata MD [Primary Care Provider] - 1-2 days Time of Disposition: 20:26
[2018-02-20 18:31] LABS: Basophils % (A) 0 %; Eosinophils # (A) 0.3 k/uL (0-0.7); Eosinophils % (A) 6 %; HCT 37.8 % (34.0-46.0); Lymphocytes % (A) 22 %; MCH 31.5 pg (25.0-35.0); MCHC 31.7 g/dL (31.0-37.0); MCV 99.5 fL (80.0-100.0); Mean Platelet Volume 6.7; Monocytes # (A) 0.4 k/uL (0-1.0); Monocytes % (A) 8 %; Neutrophils % (A) 63 %; Platelet Count 155 k/uL (150-450); RBC 3.79 m/uL (3.80-5.40); RDW 14.3 % (11.5-15.5); WBC 4.7 k/uL (3.8-10.6)
[2018-02-20 18:35] LABS: INR 4.1 (<1.2); Partial Thromboplastin Time 41.6 sec (22.0-30.0); Prothrombin Time 39.1 sec (9.0-12.0)
[2018-02-20 19:02] LABS: ALT 20 U/L (9-52); AST 22 U/L (14-36); Albumin 3.1 g/dL (3.5-5.0); Alkaline Phosphatase 93 U/L (38-126); Anion Gap 5 mmol/L; Blood Urea Nitrogen 19 mg/dL (7-17); Calcium 8.7 mg/dL (8.4-10.2); Carbon Dioxide 32 mmol/L (22-30); Chloride 102 mmol/L (98-107); Glucose 118 mg/dL (74-99); Sodium 139 mmol/L (137-145); Total Bilirubin 1.5 mg/dL (0.2-1.3); Total Protein 6.3 g/dL (6.3-8.2)
[2018-02-20 19:35] VITALS: RESP 18
--- NOTE | 2018-02-20 19:38 | CT ---
EXAMINATION TYPE: CT brain oliver frey DATE OF EXAM: 02/20/2018 COMPARISON: 10/08/2016 HISTORY: Fall injury CT DLP: 1273.8 mGycm Automated exposure control for dose reduction was used. TECHNIQUE: CT scan of the head and cervical spine are performed without contrast. FINDINGS: There is some cerebral cortical atrophy. There is 2 x 1 cm hypodensity in the right inter nal capsule related to old lacunar infarct. There is no mass effect nor midline shift. There is no si gn of intracranial hemorrhage. The cervical vertebra show fairly normal alignment. There is degenerative disc hypertrophic change fr om C4 to T1. Facet joints are intact. The skull base appears intact. IMPRESSION: Cerebral atrophy. Old right internal capsule lacunar infarct. No change. Spondylotic changes in the lower cervical spine. No fracture. No change.
--- NOTE | 2018-02-20 19:58 | CT ---
EXAMINATION TYPE: CT lumbar spine wo con DATE OF EXAM: 02/20/2018 6:53 PM COMPARISON: None HISTORY: fall injury CT DLP: 1419.8 mGycm Automated exposure control for dose reduction was used. There is a mild subluxation deformity of L3 to the right of L4-L5 millimeters. There is degenerative disc space narrowing at L3-4 L4-5 with vacuum disc. There are posterior disc herniations at L3-4 L4-5 . There is no compression fracture. There is no lumbar paraspinal mass. There is mild narrowing of th e spinal canal at L4-5 due to facet arthropathy and ligamentum flavum thickening. Sacroiliac joints a re intact. IMPRESSION: Spondylotic changes. Minimal subluxation deformity. No fracture. There is a mild relative spinal sten osis at L4-5.
[2018-02-21 00:01] VITALS: BP 110/73; PULSE 58; TEMP 98.7
== END 2018-02-21 | disposition home or self-care (01) ==
LOC: EC 17:05
DX: S09.90XA Unspecified injury of head, initial encounter (principal); M54.6 Pain in thoracic spine; M54.5 Low back pain; G31.9 Degenerative disease of nervous system, unspecified; R00.1 Bradycardia, unspecified; F32.9 Major depressive disorder, single episode, unspecified; G40.909 Epilepsy, unspecified, not intractable, without status epilepticus; I25.10 Atherosclerotic heart disease of native coronary artery without angina pectoris; I48.91 Unspecified atrial fibrillation; E78.5 Hyperlipidemia, unspecified; Z86.73 Personal history of transient ischemic attack (TIA), and cerebral infarction without residual deficits; Z90.49 Acquired absence of other specified parts of digestive tract; Z95.2 Presence of prosthetic heart valve; Z98.51 Tubal ligation status; Z98.890 Other specified postprocedural states; Z79.01 Long term (current) use of anticoagulants; Z79.891 Long term (current) use of opiate analgesic; Z79.899 Other long term (current) drug therapy; W07.XXXA Fall from chair, initial encounter; Y92.129 Unspecified place in nursing home as the place of occurrence of the external cause; Y93.89 Activity, other specified
CPT/HCPCS: 36415; 70450; 72125; 72131; 80053; 85025; 85610; 85730; 99284

== ENCOUNTER 2021-01-10 16:14 | Emergency (ER) | payer MEDICARE ==
[2021-01-10 18:33] VITALS: BP 126/76; PULSE 87; RESP 20; TEMP 98
[2021-01-10 20:19] LABS: HGB 15.5 gm/dL (11.4-16.0); MCH 33.2 pg (25.0-35.0); MCHC 34.4 g/dL (31.0-37.0); MCV 96.4 fL (80.0-100.0); Mean Platelet Volume 7.4; Platelet Count 253 k/uL (150-450); RBC 4.66 m/uL (3.80-5.40); WBC 11.5 k/uL (3.8-10.6)
[2021-01-10 20:33] LABS: Calcium 9.2 mg/dL (8.4-10.2); Potassium 4.1 mmol/L (3.5-5.1); Total Bilirubin 1.5 mg/dL (0.2-1.3); Total Protein 7.9 g/dL (6.3-8.2)
== END 2021-01-10 21:28 | disposition left against medical advice (07) ==
LOC: EC 16:14
DX: Z53.21 Procedure and treatment not carried out due to patient leaving prior to being seen by health care provider (principal); I50.9 Heart failure, unspecified; E87.70 Fluid overload, unspecified
CPT/HCPCS: 36415; 80053; 83880; 84484; 85027; 93005; 99499

== ENCOUNTER 2021-03-03 14:11 | Inpatient (IN) | payer MEDICARE ==
--- NOTE | 2021-03-03 14:24 | ED ---
General Adult HPI - General Stated complaint: ams Time Seen by Provider: 03/03/21 14:14 Source: patient, EMS, RN notes reviewed Mode of arrival: EMS Limitations: no limitations - History of Present Illness Initial comments: Patient is a pleasant 70-year-old female presenting to the emergency department with concern for patient being slower to respond than normal. Patient last known well yesterday. Patient states she feels like "crap". Patient cannot further express her symptoms. Patient admits to having headache, moderate to severe this started a few days ago, gradual onset. Patient has chronic left hemiparesis. Patient denies any change with his chronic weakness. Patient states her vision is a little bit blurry - Related Data Home Medications Medication Instructions Recorded Confirmed Atorvastatin Calcium [Lipitor] 40 mg PO HS 09/06/15 03/03/21 Gabapentin 600 mg PO BID@0900,1700 09/13/15 03/03/21 Spironolactone [Aldactone] 25 mg PO DAILY 11/23/16 03/03/21 levETIRAcetam 1,000 mg PO BID@0900,2100 11/23/16 03/03/21 Acetaminophen Tab [Tylenol] 650 mg PO Q6H PRN 10/01/17 03/03/21 Magnesium Hydroxide [Milk of 2,400 mg PO Q72H PRN 10/01/17 03/03/21 Magnesia] Sennosides [Senna] 17.2 mg PO HS 10/01/17 03/03/21 bisacodyL [Dulcolax] 10 mg RECTAL Q72H PRN 10/01/17 03/03/21 Meclizine [Antivert] 12.5 mg PO Q8H PRN 02/20/18 03/03/21 Morphine Sulfate ER [Ms Contin] 30 mg PO HS 02/20/18 03/03/21 Warfarin [Coumadin] 2 mg PO SUTUWETHSA 02/20/18 03/03/21 Baclofen 5 mg PO HS 03/03/21 03/03/21 Bumetanide [BUMEX] 2 mg PO BID@0900,1700 03/03/21 03/03/21 Melatonin 3 mg PO HS PRN 03/03/21 03/03/21 Metoprolol Tartrate [Lopressor] 12.5 mg PO BID 03/03/21 03/03/21 Potassium Chloride ER [K-Dur 20] 20 meq PO TID@0700,1300,1900 03/03/21 03/03/21 Sertraline [Zoloft] 50 mg PO DAILY 03/03/21 03/03/21 Warfarin [Coumadin] 2.5 mg PO MOFR@1700 03/03/21 03/03/21 metOLazone [Zaroxolyn] 5 mg PO DAILY 03/03/21 03/03/21 polyethylene glycoL 3350 [Miralax] 17 gm PO DAILY 03/03/21 03/03/21 traMADol HCl [Ultram] 50 mg PO BID PRN 03/03/21 03/03/21 Allergies Allergy/AdvReac Type Severity Reaction Status Date / Time codeine Allergy Chest Pain Verified 03/03/21 16:18 lorazepam [From Ativan] AdvReac GIVES THE Verified 03/03/21 16:18 OPPOSITE EFFECT Review of Systems ROS Statement: Those systems with pertinent positive or pertinent negative responses have been documented in the HPI. ROS Other: All systems not noted in ROS Statement are negative. Constitutional: Denies: fever Eyes: Reports: as per HPI ENT: Denies: ear pain Respiratory: Denies: cough, dyspnea Cardiovascular: Denies: chest pain Endocrine: Denies: fatigue Gastrointestinal: Denies: abdominal pain Genitourinary: Denies: dysuria Musculoskeletal: Denies: back pain Skin: Denies: rash Neurological: Reports: as per HPI, headache Past Medical History Past Medical History: Atrial Fibrillation, Coronary Artery Disease (CAD), CVA/TIA, Hyperlipidemia, Pneumonia, Seizure Disorder Additional Past Medical History / Comment(s): FALLS, CONCUSSION, STROKE AFFECTED LT SIDE UNABLE TO USE LT ARM AND STATED FOOT DRAGS TE. Left shoulder fracture 2016, 2018.bakers cyst behind rt knee. pt stated she had a boost pne vaccine 2018 not sure what month and write unalb to verify date at time of this admit History of Any Multi-Drug Resistant Organisms: None Reported Past Surgical History: Appendectomy, Cardiac Valve Replacement, Cholecystectomy, Heart Catheterization, Tubal Ligation Additional Past Surgical History / Comment(s): COLONOSCOPY, STATED HAD A "MITRAL VALVE REPLACEMENT" Past Anesthesia/Blood Transfusion Reactions: No Reported Reaction Past Psychological History: Depression Past Alcohol Use History: None Reported Past Drug Use History: None Reported - Past Family History Father Family Medical History: Cancer Additional Family Medical History / Comment(s): BRAIN AND LUNG CANCER Mother Family Medical History: Coronary Artery Disease (CAD), Dementia Additional Family Medical History / Comment(s): PT COULDN'T REMEMBER WHAT MOM FROM General Exam Limitations: no limitations General appearance: alert, in no apparent distress Head exam: Present: atraumatic Eye exam: Present: normal appearance, PERRL, EOMI Neck exam: Present: normal inspection Respiratory exam: Present: normal lung sounds bilaterally Cardiovascular Exam: Present: regular rate, normal rhythm, systolic murmur (Patient states chronic from her valve surgery) GI/Abdominal exam: Present: soft. Absent: tenderness Extremities exam: Present: normal inspection Neurological exam: Present: alert, oriented X3, CN II-XII intact Expanded Neurological exam: Present: protecting the airway Patient oriented to: Present: person, place, time Cranial nerves: EOM's Intact: Normal Motor strength exam: RUE: 5, LUE: 0, RLE: 3, LLE: 0 Eye Response: (4) open spontaneously Motor Response: (6) obeys commands Verbal Response: (5) oriented Psychiatric exam: Present: normal affect, normal mood Skin exam: Present: normal color Course Vital Signs 03/03/21 14:20 Temperature 98.1 F Pulse Rate 78 Respiratory 18 Rate Blood Pressure 106/90 O2 Sat by Pulse 97 Oximetry EKG Findings - EKG Comments: EKG Findings:: A. fib with rate of 85. QRS 104. QT 440. QTc 523. Normal axis. Normal QRS. T wave inversion V1 through V4. Medical Decision Making - Medical Decision Making Patient reevaluated and resting comfortably in bed. Patient family updated on results and plan. Case discussed with Dr. Bustamante, who will admit covering for Dr. Zapata. Potassium will be replaced. Family did admit the patient seemed somewhat confused last night. - Lab Data Result diagrams: 03/03/21 14:57 03/03/21 14:57 Lab Results 03/03/21 03/03/21 03/03/21 Range/Units 14:21 14:57 14:57 WBC 12.6 H (3.8-10.6) k/uL RBC 5.07 (3.80-5.40) m/uL Hgb 16.9 H (11.4-16.0) gm/dL Hct 49.7 H (34.0-46.0) % MCV 98.1 (80.0-100.0) fL MCH 33.3 (25.0-35.0) pg MCHC 34.0 (31.0-37.0) g/dL RDW 13.9 (11.5-15.5) % Plt Count 278 (150-450) k/uL MPV 7.4 Neutrophils % 76 % Lymphocytes % 12 % Monocytes % 7 % Eosinophils % 2 % Basophils % 1 % Neutrophils # 9.6 H (1.3-7.7) k/uL Lymphocytes # 1.5 (1.0-4.8) k/uL Monocytes # 0.9 (0-1.0) k/uL Eosinophils # 0.3 (0-0.7) k/uL Basophils # 0.1 (0-0.2) k/uL PT 106.8 H (9.0-12.0) sec INR >10.0 H* (<1.2) APTT 51.0 H (22.0-30.0) sec Sodium (137-145) mmol/L Potassium (3.5-5.1) mmol/L Chloride (98-107) mmol/L Carbon Dioxide (22-30) mmol/L Anion Gap mmol/L BUN (7-17) mg/dL Creatinine (0.52-1.04) mg/dL Est GFR (CKD-EPI)AfAm (>60 ml/min/1.73 sqM) Est GFR (CKD-EPI)NonAf (>60 ml/min/1.73 sqM) Glucose (74-99) mg/dL Calcium (8.4-10.2) mg/dL Total Bilirubin (0.2-1.3) mg/dL AST (14-36) U/L ALT (4-34) U/L Alkaline Phosphatase (38-126) U/L Troponin I (0.000-0.034) ng/mL Total Protein (6.3-8.2) g/dL Albumin (3.5-5.0) g/dL Coronavirus (PCR) Not Detected (Not Detectd) 03/03/21 03/03/21 Range/Units 14:57 14:57 WBC (3.8-10.6) k/uL RBC (3.80-5.40) m/uL Hgb (11.4-16.0) gm/dL Hct (34.0-46.0) % MCV (80.0-100.0) fL MCH (25.0-35.0) pg MCHC (31.0-37.0) g/dL RDW (11.5-15.5) % Plt Count (150-450) k/uL MPV Neutrophils % % Lymphocytes % % Monocytes % % Eosinophils % % Basophils % % Neutrophils # (1.3-7.7) k/uL Lymphocytes # (1.0-4.8) k/uL Monocytes # (0-1.0) k/uL Eosinophils # (0-0.7) k/uL Basophils # (0-0.2) k/uL PT (9.0-12.0) sec INR (<1.2) APTT (22.0-30.0) sec Sodium 130 L (137-145) mmol/L Potassium 2.4 L* (3.5-5.1) mmol/L Chloride 76 L (98-107) mmol/L Carbon Dioxide 40 H (22-30) mmol/L Anion Gap 14 mmol/L BUN 57 H (7-17) mg/dL Creatinine 1.01 (0.52-1.04) mg/dL Est GFR (CKD-EPI)AfAm 66 (>60 ml/min/1.73 sqM) Est GFR (CKD-EPI)NonAf 57 (>60 ml/min/1.73 sqM) Glucose 144 H (74-99) mg/dL Calcium 9.6 (8.4-10.2) mg/dL Total Bilirubin 1.7 H (0.2-1.3) mg/dL AST 47 H (14-36) U/L ALT 18 (4-34) U/L Alkaline Phosphatase 242 H (38-126) U/L Troponin I 0.023 (0.000-0.034) ng/mL Total Protein 9.0 H (6.3-8.2) g/dL Albumin 4.4 (3.5-5.0) g/dL Coronavirus (PCR) (Not Detectd) - Radiology Data Radiology results: report reviewed (Computed tomography scan of the brain shows atrophy, chronic small vessel ischemia.), image reviewed (Chest x-ray shows cardiomegaly.) Disposition Clinical Impression: Hypokalemia, Renal insufficiency, Altered mental status, Coagulopathy Disposition: ADMITTED IP TO THIS HOSP Is patient prescribed a controlled substance at d/c from ED?: No Referrals: None,Stated [Primary Care Provider] - 1-2 days Decision Time: 16:36
--- NOTE | 2021-03-03 15:21 | XR ---
EXAMINATION TYPE: XR chest 2V DATE OF EXAM: 03/03/2021 COMPARISON: 10/01/2017 INDICATION: Altered mental status TECHNIQUE: Frontal and lateral views of the chest are obtained. FINDINGS: The heart size is enlarged. The pulmonary vasculature is normal. The lungs are clear. IMPRESSION: 1. Cardiomegaly
--- NOTE | 2021-03-03 15:25 | CT ---
EXAMINATION TYPE: CT brain wo con DATE OF EXAM: 03/03/2021 COMPARISON: CT brain 02/20/2018 HISTORY: ams, neuro deficit CT DLP: 1060.4 mGycm Automated exposure control for dose reduction was used. Helical imaging through the brain FINDINGS: Motion is present on the exam which could compromise evaluation. Areas of encephalomalacia seen on previous exam are again noted consistent with remote cerebrovascula r accident bilaterally, there is cortical atrophy, white matter low-attenuation similar to prior. No evident hemorrhage or hydrocephalus. There are cerebral vascular calcifications. Artifact is noted to the brainstem. Paranasal sinuses and mastoid air cells are well aerated IMPRESSION: AGE-RELATED CHANGES OF ATROPHY, CHRONIC SMALL VESSEL ISCHEMIA. CONSIDER MRI FOR BETTER EVALUATION INDICATED
[2021-03-03 15:26] LABS: Basophils # (A) 0.1 k/uL (0-0.2); Basophils % (A) 1 %; Eosinophils # (A) 0.3 k/uL (0-0.7); Eosinophils % (A) 2 %; HCT 49.7 % (34.0-46.0); HGB 16.9 gm/dL (11.4-16.0); Lymphocytes # (A) 1.5 k/uL (1.0-4.8); Lymphocytes % (A) 12 %; MCH 33.3 pg (25.0-35.0); MCV 98.1 fL (80.0-100.0); Mean Platelet Volume 7.4; Monocytes # (A) 0.9 k/uL (0-1.0); Monocytes % (A) 7 %; Neutrophils # (A) 9.6 k/uL (1.3-7.7); Neutrophils % (A) 76 %; Platelet Count 278 k/uL (150-450); RBC 5.07 m/uL (3.80-5.40); RDW 13.9 % (11.5-15.5); WBC 12.6 k/uL (3.8-10.6)
[2021-03-03 15:27] LABS: Albumin 4.4 g/dL (3.5-5.0); Calcium 9.6 mg/dL (8.4-10.2); Total Bilirubin 1.7 mg/dL (0.2-1.3)
[2021-03-03 15:36] LABS: Potassium 2.4 mmol/L (3.5-5.1)
[2021-03-03 15:37] LABS: Prothrombin Time 106.8 sec (9.0-12.0)
[2021-03-03] MEDS ORDERED: POTASSIUM CHLORIDE ER 20 MEQ TAB.ER PO STA ×2 (15:46→16:39)
[2021-03-03] MEDS ORDERED: POTASSIUM CHLORIDE 20 MEQ in WATER FOR INJECTION 1 100ML.BAG IVPB STA (15:49)
[2021-03-03 16:10] LABS: INR >10.0 (<1.2)
[2021-03-03] MEDS ORDERED: NALOXONE 0.4 MG/ML 1 ML VIAL IV PRN (16:36)
[2021-03-03] MEDS ORDERED: MAGNESIUM HYDROXIDE 2,400 MG/10 ML CUP PO PRN (16:39)
[2021-03-03] MEDS ORDERED: MELATONIN 3 MG TABLET PO PRN (16:39)
[2021-03-03] MEDS ORDERED: BACLOFEN 10 MG TAB PO PRN (16:39)
[2021-03-03] MEDS ORDERED: MECLIZINE 12.5 MG TAB PO PRN (16:39)
[2021-03-03] MEDS ORDERED: bisacodyL 10 MG SUPP RECTAL PRN (16:39)
[2021-03-03] MEDS ORDERED: ACETAMINOPHEN TAB 325 MG TAB PO PRN (16:39)
[2021-03-03] MEDS ORDERED: PHYTONADIONE ORAL 5 MG/5 ML ORAL.SYRG PO STA (16:51)
--- NOTE | 2021-03-03 16:51 | P.HPIM ---
History of Present Illness Patient is a pleasant 70-year-old female group home resident since her stroke many years ago with residual left sided weakness mostly nonambulatory bedbound was a sent in here because of confusion episodes. The concern was stroke although patient has significant electrolyte abnormalities and patient doesn't feel right when I entered the patient although there are no obvious symptoms. Patient does have history of congestive heart failure had history of valvular replacement patient had a previous ejection fraction of around 40-45% I do not have any BNP available. Patient clinically appeared to be dehydrated patient is a hyponatremic, hypokalemic magnesium is not available. Patient is on Bumex, metolazone, Aldactone at home. Patient is also on Coumadin for valvular atrial fibrillation and INR is unable around 10 patient doesn't have any GI bleed at this time or any other bleed at this time. CT of the brain showed age-related atrophy and chronic spondylosis ischemia. REVIEW OF SYSTEMS: CONSTITUTIONAL: No fever. HEENT: No recent visual problems or hearing problems. Denied any sore throat. CARDIOVASCULAR: No chest pain, orthopnea, PND, no palpitations, no syncope. PULMONARY: No shortness of breath, no cough, no hemoptysis. GASTROINTESTINAL: No diarrhea, no nausea, no vomiting, no abdominal pain. NEUROLOGICAL: No headaches, no weakness, no numbness. HEMATOLOGICAL: Denies any bleeding or petechiae. GENITOURINARY: Denies any burning micturition, frequency, or urgency. MUSCULOSKELETAL/RHEUMATOLOGICAL: Denies any joint pain, swelling, or any muscle pain. ENDOCRINE: Denies any polyuria or polydipsia. The rest of the 14-point review of systems is negative. PHYSICAL EXAMINATION: GENERAL: The patient is alert and oriented x3, not in any acute distress. Well developed, well nourished. HEENT: Pupils are round and equally reacting to light. EOMI. No scleral icterus. No conjunctival pallor. Normocephalic, atraumatic. No pharyngeal erythema. No thyromegaly. CARDIOVASCULAR: S1 and S2 present. No rubs, or gallops. PULMONARY: Chest is clear to auscultation, no wheezing or crackles. ABDOMEN: Soft, nontender, nondistended, normoactive bowel sounds. No palpable organomegaly. MUSCULOSKELETAL: No joint swelling or deformity. EXTREMITIES: No cyanosis, clubbing, or pedal edema. NEUROLOGICAL: Sided weakness left-sided strength is around 0/5 SKIN: No rashes. dry skin and mucous membranes Assessment and plan -Altered mental status: Secondary to metabolic encephalopathy from [place] p rovided abnormalities and dehydration. Diuretics will be held temporarily patient will be hydrated along with supplementation of potassium and magnesium level will be obtained. -Hyponatremia hypervolemic hyponatremia secondary to excessive diuresis patient doesn't have any diarrhea nausea or vomiting -Anion gap metabolic acidosis probably is secondary to uremia there may be a competent of lactic acidosis lactic level will be obtained and repeat basic metabolic profile again tomorrow -Acute renal failure secondary to excessive diuresis. -Congestive heart failure chronic systolic dysfunction may have had diastolic dysfunction patient is hypervolemic at this time not in acute exacerbation. On paroxysmal atrial fibrillation valvular for which patient is on Coumadin patient INR is supratherapeutic will receive vitamin K today and repeat INR tomorrow -Coronary artery disease with history of CABG in the past -History of cerebrovascular accident with residual weakness on the left side next and-hyperlipidemia -Seizure disorder for which patient is on Keppra which will be continued -Chronic debility due to multiple medical problems DVT prophylaxis: On Coumadin Past Medical History Past Medical History: Atrial Fibrillation, Coronary Artery Disease (CAD), CVA/TIA, Hyperlipidemia, Pneumonia, Seizure Disorder Additional Past Medical History / Comment(s): FALLS, CONCUSSION, STROKE AFFECTED LT SIDE UNABLE TO USE LT ARM AND STATED FOOT DRAGS TE. Left shoulder fracture 2016, 2018.bakers cyst behind rt knee. pt stated she had a boost pne vaccine 2018 not sure what month and write unalb to verify date at time of this admit History of Any Multi-Drug Resistant Organisms: None Reported Past Surgical History: Appendectomy, Cardiac Valve Replacement, Cholecystectomy, Heart Catheterization, Tubal Ligation Additional Past Surgical History / Comment(s): COLONOSCOPY, STATED HAD A "MITRAL VALVE REPLACEMENT" Past Anesthesia/Blood Transfusion Reactions: No Reported Reaction Past Psychological History: Depression Past Alcohol Use History: None Reported Past Drug Use History: None Reported - Past Family History Father Family Medical History: Cancer Additional Family Medical History / Comment(s): BRAIN AND LUNG CANCER Mother Family Medical History: Coronary Artery Disease (CAD), Dementia Additional Family Medical History / Comment(s): PT COULDN'T REMEMBER WHAT MOM FROM Medications and Allergies Home Medications Medication Instructions Recorded Confirmed Type Atorvastatin Calcium [Lipitor] 40 mg PO HS 09/06/15 03/03/21 History Gabapentin 600 mg PO BID@0900,1700 09/13/15 03/03/21 History Spironolactone [Aldactone] 25 mg PO DAILY 11/23/16 03/03/21 History levETIRAcetam 1,000 mg PO BID@0900,2100 11/23/16 03/03/21 History Acetaminophen Tab [Tylenol] 650 mg PO Q6H PRN 10/01/17 03/03/21 History Magnesium Hydroxide [Milk of 2,400 mg PO Q72H PRN 10/01/17 03/03/21 History Magnesia] Sennosides [Senna] 17.2 mg PO HS 10/01/17 03/03/21 History bisacodyL [Dulcolax] 10 mg RECTAL Q72H PRN 10/01/17 03/03/21 History Meclizine [Antivert] 12.5 mg PO Q8H PRN 02/20/18 03/03/21 History Morphine Sulfate ER [Ms Contin] 30 mg PO HS 02/20/18 03/03/21 History Warfarin [Coumadin] 2 mg PO SUTUWETHSA 02/20/18 03/03/21 History Baclofen 5 mg PO HS 03/03/21 03/03/21 History Bumetanide [BUMEX] 2 mg PO BID@0900,1700 03/03/21 03/03/21 History Melatonin 3 mg PO HS PRN 03/03/21 03/03/21 History Metoprolol Tartrate [Lopressor] 12.5 mg PO BID 03/03/21 03/03/21 History Potassium Chloride ER [K-Dur 20] 20 meq PO TID@0700,1300,1900 03/03/21 03/03/21 History Sertraline [Zoloft] 50 mg PO DAILY 03/03/21 03/03/21 History Warfarin [Coumadin] 2.5 mg PO MOFR@1700 03/03/21 03/03/21 History metOLazone [Zaroxolyn] 5 mg PO DAILY 03/03/21 03/03/21 History polyethylene glycoL 3350 [Miralax] 17 gm PO DAILY 01/20/22 01/20/22 History traMADol HCl [Ultram] 50 mg PO BID PRN 03/03/21 03/03/21 History Allergies Allergy/AdvReac Type Severity Reaction Status Date / Time codeine Allergy Chest Pain Verified 03/03/21 16:18 lorazepam [From Ativan] AdvReac GIVES THE Verified 03/03/21 16:18 OPPOSITE EFFECT Physical Exam Vitals: Vital Signs Temp Pulse Resp BP Pulse Ox 03/03/21 16:32 68 18 111/76 98 03/03/21 14:20 98.1 F 78 18 106/90 97 Intake and Output 03/03/21 03/03/21 03/03/21 06:59 14:59 22:59 Other: Weight 127.006 kg Results CBC & Chem 7: 03/03/21 14:57 03/03/21 14:57 Labs: Abnormal Lab Results - Last 24 Hours (Table) 03/03/21 03/03/21 03/03/21 Range/Units 14:57 14:57 14:57 WBC 12.6 H (3.8-10.6) k/uL Hgb 16.9 H (11.4-16.0) gm/dL Hct 49.7 H (34.0-46.0) % Neutrophils # 9.6 H (1.3-7.7) k/uL PT 106.8 H (9.0-12.0) sec INR >10.0 H* (<1.2) APTT 51.0 H (22.0-30.0) sec Sodium 130 L (137-145) mmol/L Potassium 2.4 L* (3.5-5.1) mmol/L Chloride 76 L (98-107) mmol/L Carbon Dioxide 40 H (22-30) mmol/L BUN 57 H (7-17) mg/dL Glucose 144 H (74-99) mg/dL Total Bilirubin 1.7 H (0.2-1.3) mg/dL AST 47 H (14-36) U/L Alkaline Phosphatase 242 H (38-126) U/L Total Protein 9.0 H (6.3-8.2) g/dL
[2021-03-03] MEDS: GABAPENTIN 300 MG CAP PO SCH (17:21)
[2021-03-03] MEDS ORDERED: POTASSIUM CHLORIDE ER 20 MEQ TAB.ER PO ONE (19:00)
[2021-03-03] MEDS: 0.9% NACL WITH KCL 20 MEQ/L 1,000 ML IV SCH (19:34)
[2021-03-03] MEDS: levETIRAcetam 500 MG TAB PO SCH (22:12)
[2021-03-03] MEDS: METOPROLOL TARTRATE 12.5 MG TAB PO SCH (22:13)
[2021-03-03] MEDS: SENNOSIDES 8.6 MG TAB PO SCH (22:13)
[2021-03-03] MEDS: POTASSIUM CHLORIDE ER 20 MEQ TAB.ER PO SCH (22:13)
[2021-03-03] MEDS: ATORVASTATIN 40 MG TAB PO SCH (22:13)
[2021-03-04] MEDS: 0.9% NACL WITH KCL 20 MEQ/L 1,000 ML IV SCH (06:25)
[2021-03-04 07:07] LABS: Basophils % (A) 0 %; Eosinophils # (A) 0.2 k/uL (0-0.7); Eosinophils % (A) 2 %; HCT 44.9 % (34.0-46.0); HGB 14.9 gm/dL (11.4-16.0); Lymphocytes # (A) 1.5 k/uL (1.0-4.8); Lymphocytes % (A) 15 %; MCH 32.9 pg (25.0-35.0); MCHC 33.1 g/dL (31.0-37.0); MCV 99.2 fL (80.0-100.0); Mean Platelet Volume 7.4; Monocytes # (A) 0.8 k/uL (0-1.0); Monocytes % (A) 8 %; Neutrophils # (A) 6.9 k/uL (1.3-7.7); Neutrophils % (A) 72 %; Platelet Count 241 k/uL (150-450); RBC 4.53 m/uL (3.80-5.40); RDW 13.9 % (11.5-15.5); WBC 9.6 k/uL (3.8-10.6)
[2021-03-04 07:20] LABS: INR 1.9 (<1.2); Prothrombin Time 18.4 sec (9.0-12.0)
[2021-03-04 07:21] LABS: Albumin 3.3 g/dL (3.5-5.0); Calcium 8.9 mg/dL (8.4-10.2); Magnesium 2.1 mg/dL (1.6-2.3); Potassium 4.1 mmol/L (3.5-5.1); Total Bilirubin 2.2 mg/dL (0.2-1.3); Total Protein 7.1 g/dL (6.3-8.2)
[2021-03-04] MEDS: METOPROLOL TARTRATE 12.5 MG TAB PO SCH ×2 (08:37→20:39)
[2021-03-04] MEDS: levETIRAcetam 500 MG TAB PO SCH ×2 (08:37→20:39)
[2021-03-04] MEDS: SERTRALINE 50 MG TAB PO SCH (08:37)
[2021-03-04] MEDS: POTASSIUM CHLORIDE ER 20 MEQ TAB.ER PO SCH (08:37)
[2021-03-04] MEDS: polyethylene glycoL 3350 17 GM POWD.PACK PO SCH (08:37)
[2021-03-04] MEDS: GABAPENTIN 300 MG CAP PO SCH ×2 (08:37→18:11)
--- NOTE | 2021-03-04 09:24 | P.NPCON ---
History of Present Illness - Reason for Consult hypokalemia - History of Present Illness Reason for consultation: Hypokalemia History of present illness: Patient is a 70-year-old female seen in consultation for hypokalemia. Patient presented to the hospital on 03/03/2021 with generalized weakness and not feeling well. Patient is currently resting in bed and is still quite lethargic. Patient is an [facility] resident and has history of stroke with residual left-sided weakness. She tested negative for coronavirus. Patient's potassium level was low at 2.4 on admission. Her oral intake has been poor. Additionally she takes Bumex 2 mg twice daily as well as metolazone outpatient. Patient has history of CHF with ejection fraction of 40-45%. Potassium is been replaced and is 4.1 this morning. Blood pressure is in the lower side but stable. No fever. Denies hematuria. No vomiting or diarrhea. Renal function is stable with creatinine near 1. No evidence of fluid overload on chest x-ray. Denies use of nonsteroidals. Denies history of diabetes. Vital signs are stable. HEENT: Head exam is unremarkable. LUNGS: Breath sounds decreased. HEART: Rate and Rhythm are regular. ABDOMEN: Soft, no distention. Obese. EXTREMITITES: No edema. 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 Left shoulder fracture 2016, 2018.bakers cyst behind rt knee. History of Any Multi-Drug Resistant Organisms: None Reported Past Surgical History: Appendectomy, Cardiac Valve Replacement, Cholecystectomy, Heart Catheterization, Tubal Ligation Additional Past Surgical History / Comment(s): COLONOSCOPY, STATED HAD A "MITRAL VALVE REPLACEMENT" Past Anesthesia/Blood Transfusion Reactions: No Reported Reaction Past Psychological History: Depression Smoking Status: Never smoker Past Alcohol Use History: None Reported Past Drug Use History: None Reported - Past Family History Father Family Medical History: Cancer Additional Family Medical History / Comment(s): BRAIN AND LUNG CANCER Mother Family Medical History: Coronary Artery Disease (CAD), Dementia Additional Family Medical History / Comment(s): PT COULDN'T REMEMBER WHAT MOM FROM Medications and Allergies Home Medications Medication Instructions Recorded Confirmed Type Atorvastatin Calcium [Lipitor] 40 mg PO HS 09/06/15 03/03/21 History Gabapentin 600 mg PO BID@0900,1700 09/13/15 03/03/21 History Spironolactone [Aldactone] 25 mg PO DAILY 11/23/16 03/03/21 History levETIRAcetam 1,000 mg PO BID@0900,2100 11/23/16 03/03/21 History Acetaminophen Tab [Tylenol] 650 mg PO Q6H PRN 10/01/17 03/03/21 History Magnesium Hydroxide [Milk of 2,400 mg PO Q72H PRN 10/01/17 03/03/21 History Magnesia] Sennosides [Senna] 17.2 mg PO HS 10/01/17 03/03/21 History bisacodyL [Dulcolax] 10 mg RECTAL Q72H PRN 10/01/17 03/03/21 History Meclizine [Antivert] 12.5 mg PO Q8H PRN 02/20/18 03/03/21 History Morphine Sulfate ER [Ms Contin] 30 mg PO HS 02/20/18 03/03/21 History Warfarin [Coumadin] 2 mg PO SUTUWETHSA 02/20/18 03/03/21 History Baclofen 5 mg PO HS 03/03/21 03/03/21 History Bumetanide [BUMEX] 2 mg PO BID@0900,1700 03/03/21 03/03/21 History Melatonin 3 mg PO HS PRN 03/03/21 03/03/21 History Metoprolol Tartrate [Lopressor] 12.5 mg PO BID 03/03/21 03/03/21 History Potassium Chloride ER [K-Dur 20] 20 meq PO TID@0700,1300,1900 03/03/21 03/03/21 History Sertraline [Zoloft] 50 mg PO DAILY 03/03/21 03/03/21 History Warfarin [Coumadin] 2.5 mg PO MOFR@1700 03/03/21 03/03/21 History metOLazone [Zaroxolyn] 5 mg PO DAILY 03/03/21 03/03/21 History polyethylene glycoL 3350 [Miralax] 17 gm PO DAILY 03/03/21 03/03/21 History traMADol HCl [Ultram] 50 mg PO BID PRN 03/03/21 03/03/21 History Allergies Allergy/AdvReac Type Severity Reaction Status Date / Time codeine Allergy Chest Pain Verified 03/03/21 16:18 lorazepam [From Ativan] AdvReac GIVES THE Verified 03/03/21 16:18 OPPOSITE EFFECT Physical Exam Vitals: Vital Signs Temp Pulse Pulse Resp BP BP Pulse Ox 03/04/21 08:35 97.3 F L 82 20 100/70 99 03/04/21 03:39 98.1 F 76 18 103/71 98 03/04/21 01:49 77 18 03/04/21 01:26 98 F 75 18 93/57 98 03/03/21 19:21 81 16 155/77 98 03/03/21 16:32 68 18 111/76 98 03/03/21 14:20 98.1 F 78 18 106/90 97 Intake and Output 03/03/21 03/04/21 03/04/21 22:59 06:59 14:59 Other: Voiding Method Indwelling Catheter # Voids 400 Weight 127.006 kg Results - Lab Results Most recent lab results Calcium 8.9 mg/dL (8.4-10.2) 03/04/21 06:41 Magnesium 2.1 mg/dL (1.6-2.3) 03/04/21 06:41 03/04/21 06:41 03/04/21 06:41 Assessment and Plan Plan: Assessment: 1. Hypokalemia from poor intake and diuretics. Magnesium level normal. Replaced. Resolved. 2. Hyponatremia from poor solute intake and diuretics (was on Bumex as well as metolazone outpatient). 3. Chronic systolic CHF with ejection fraction of 40-45%. 4. History of coronary artery disease. 5. History of CVA. Plan: Decrease rate of normal saline to 50 mL an hour. Continue to hold diuretics. Encouraged oral intake. 1500 mL free water restriction. Repeat labs in the morning. Thank you for the consultation. I will continue to follow the patient with you during her hospital stay.
--- NOTE | 2021-03-04 09:48 | P.CNNES ---
History of Present Illness Consult date: 03/04/21 Requesting physician: Ronan Cárdenas Reason for Consult: altered mental status History of Present Illness: This is a 70-year-old woman with medical history of seizure disorder, stroke with residual left side weakness, atrial fibrillation on Coumadin, mitral valve replacement, congestive heart failure, hyperlipidemia who presented to the emergency department on 03/03/2021 because she felt she was a slower to respond than normal. Patient stated that she felt like "crap" and could not further express her symptoms. She stated that she was not feeling herself yesterday and she could not but she feels much better today. She denies any loss of consciousness, jerking if any extremities. She stated that the she had a his tory of seizure more than 20 years ago and she's been on Keppra thousand milligrams every 12 hours. She said that she was evaluated by a neurologist in the remote past and has not seen a neurologist for years. She stated that regarding her seizures she was told that she has jerking of her extremities, loss of consciousness, sometimes she would have urinary incontinence and tongue bite. She also had a stroke about 18 years ago and she said that she can't move the left side. Otherwise she denies any neurological lot symptoms appear denies of any nausea, vomiting. She feels she is doing better today. Patient resides the [facility]. Patient is bedbound. Patient is on Keppra thousand milligrams 1 tablet twice a day for seizures order. Her other significant medications are gabapentin 600 mg 1 tablet twice a day, Lipitor 40 mg daily at bedtime, baclofen 5 mg daily at bedtime, melatonin 3 mg daily at bedtime when necessary, metoprolol, Zoloft, tramadol. Some of the workup in the hospital consisted of: Initial vital signs his blood pressure of 106/90, heart rate of 78, respiratory of 18, temperature of 98.1 oral and pulse ox of 97% room air. So far during this admission the patient has been afebrile. Initial white blood cells 12.6 and the repeat is 9.6. Initial sodium is 1:30, potassium 2.4, creatinine is 1.01, serum glucose is 144, calcium is 9.6, magnesium 2.1, AST is 47, ALT of 18. Initial BUN is 57 and the repeat is 50. López virus PCR was not detected Initial INR is a more than 10.0 and a repeat is 1.9, initial also PT is 100.6 and the repeated is 18.4. Patient received Vitamin K. CT of the head is reported as age-related changes of atrophy, chronic small ve ssel ischemia. Consider MRI for better evaluation as indicated. In the body of the report and it is reported that there and there is areas of encephalomalacia seen on previous exam are again noted consider with remote cerebrovascular accident. I personally reviewed the CT of the head and there is no acute or subacute ischemia there is no tubercle hemorrhage. The patient has an old right internal capsule/lópez radiata stroke and I personally reviewed the report on 2018 and is also mentioned to the patient has an old right internal capsule related to old lacunar infarct. Was reported also in that 2017 CT brain as well. Review of Systems Review of system: The 12 point system was reviewed and apparent positive and negative per HPI. 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 Left shoulder fracture 2016, 2018.bakers cyst behind rt knee. History of Any Multi-Drug Resistant Organisms: None Reported Past Surgical History: Appendectomy, Cardiac Valve Replacement, Cholecystectomy, Heart Catheterization, Tubal Ligation Additional Past Surgical History / Comment(s): COLONOSCOPY, STATED HAD A "MITRAL VALVE REPLACEMENT" Past Anesthesia/Blood Transfusion Reactions: No Reported Reaction Past Psychological History: Depression Smoking Status: Never smoker Past Alcohol Use History: None Reported Past Drug Use History: None Reported - Past Family History Father Family Medical History: Cancer Additional Family Medical History / Comment(s): BRAIN AND LUNG CANCER Mother Family Medical History: Coronary Artery Disease (CAD), Dementia Additional Family Medical History / Comment(s): PT COULDN'T REMEMBER WHAT MOM FROM Medications and Allergies Home Medications Medication Instructions Recorded Confirmed Type Atorvastatin Calcium [Lipitor] 40 mg PO HS 09/06/15 03/03/21 History Gabapentin 600 mg PO BID@0900,1700 09/13/15 03/03/21 History Spironolactone [Aldactone] 25 mg PO DAILY 11/23/16 03/03/21 History levETIRAcetam 1,000 mg PO BID@0900,2100 11/23/16 03/03/21 History Acetaminophen Tab [Tylenol] 650 mg PO Q6H PRN 10/01/17 03/03/21 History Magnesium Hydroxide [Milk of 2,400 mg PO Q72H PRN 10/01/17 03/03/21 History Magnesia] Sennosides [Senna] 17.2 mg PO HS 10/01/17 03/03/21 History bisacodyL [Dulcolax] 10 mg RECTAL Q72H PRN 10/01/17 03/03/21 History Meclizine [Antivert] 12.5 mg PO Q8H PRN 02/20/18 03/03/21 History Morphine Sulfate ER [Ms Contin] 30 mg PO HS 02/20/18 03/03/21 History Warfarin [Coumadin] 2 mg PO SUTUWETHSA 02/20/18 03/03/21 History Baclofen 5 mg PO HS 03/03/21 03/03/21 History Bumetanide [BUMEX] 2 mg PO BID@0900,1700 03/03/21 03/03/21 History Melatonin 3 mg PO HS PRN 03/03/21 03/03/21 History Metoprolol Tartrate [Lopressor] 12.5 mg PO BID 03/03/21 03/03/21 History Potassium Chloride ER [K-Dur 20] 20 meq PO TID@0700,1300,1900 03/03/21 03/03/21 History Sertraline [Zoloft] 50 mg PO DAILY 03/03/21 03/03/21 History Warfarin [Coumadin] 2.5 mg PO MOFR@1700 03/03/21 03/03/21 History metOLazone [Zaroxolyn] 5 mg PO DAILY 03/03/21 03/03/21 History polyethylene glycoL 3350 [Miralax] 17 gm PO DAILY 03/03/21 03/03/21 History traMADol HCl [Ultram] 50 mg PO BID PRN 03/03/21 03/03/21 History Allergies Allergy/AdvReac Type Severity Reaction Status Date / Time codeine Allergy Chest Pain Verified 03/03/21 16:18 lorazepam [From Ativan] AdvReac GIVES THE Verified 03/03/21 16:18 OPPOSITE EFFECT Physical Examination - Vital Signs Vital Signs: Vital Signs Temp Pulse Pulse Resp BP BP Pulse Ox 03/04/21 03:39 98.1 F 76 18 103/71 98 03/04/21 01:49 77 18 03/04/21 01:26 98 F 75 18 93/57 98 03/03/21 19:21 81 16 155/77 98 03/03/21 16:32 68 18 111/76 98 03/03/21 14:20 98.1 F 78 18 106/90 97 Intake and Output 03/03/21 03/04/21 03/04/21 22:59 06:59 14:59 Other: Voiding Method Indwelling Catheter # Voids 400 Weight 127.006 kg GENERAL: The patient is a morbid obese woman, lying in bed and is not in acute distress. CHEST: The heart rate is regular rate rhythm. No murmurs to auscultation. . LUNG: Clear to auscultation bilaterally no wheezing noted throughout. Not labored breathing. ABDOMEN/GI: Bowel sounds present in all 4 quadrants. No tenderness to palpation throughout. NEUROLOGICAL: Higher mental function: The patient is awake, alert, oriented to self and time. She stated she in the hospital but does not know name. Patient is following simple commands. No aphasia and no neglect. Cranial nerves: The pupils are round, equal and reactive to light and accommodation. Visual keith are full to confrontation throughout. Extraocular movement is intact no nystagmus is noted. Facial sensation is normal to touch throughout. The facial strength is mild left lower facial droop. Hearing is normal bilaterally to hand rub. Tongue is midline and moved [id number] without any difficulty. No dysarthria is noted. Shoulder shrug is normal bilaterally. Motor: The strength is 0/5 over the left side otherwise right upper extremity is 5/5 and right lower extremity is able to extend her knee upon helping lift right leg and ankle is 4 (right lower extremity movement is chronic). Increase tone over the left. Decrease bulk over the left upper side. Cerebellum: Normal finger to nose heel to donato bilaterally. Sensation: Sensation is normal to touch throughout. Reflexes (right/left):2+ throughout right upper while left is 1+. Lowers are 1+. Plantars are mute bilaterally. Results - Laboratory Findings CBC and BMP: 03/04/21 06:41 03/04/21 06:41 Abnormal Lab Findings: Abnormal Labs 03/03/21 03/03/21 03/03/21 14:57 14:57 14:57 WBC 12.6 H Hgb 16.9 H Hct 49.7 H Neutrophils # 9.6 H PT 106.8 H INR >10.0 H* APTT 51.0 H Sodium 130 L Potassium 2.4 L* Chloride 76 L Carbon Dioxide 40 H BUN 57 H Glucose 144 H Total Bilirubin 1.7 H AST 47 H Alkaline Phosphatase 242 H Total Protein 9.0 H Albumin 03/04/21 03/04/21 06:41 06:41 WBC Hgb Hct Neutrophils # PT 18.4 H INR 1.9 H APTT Sodium 129 L Potassium Chloride 90 L Carbon Dioxide 34 H BUN 50 H Glucose 122 H Total Bilirubin 2.2 H AST Alkaline Phosphatase 195 H Total Protein Albumin 3.3 L Assessment and Plan Assessment: Altered mental status likely due to metabolic encephalopathy and has electrolyte abnormality/elevated BUN--mentation improved Mild hyponatremia Acute hypokalemia---resolved Slight elevated LFT's---resolved Coagulopathy (presented with INR of >10 and most recent INR is 1.9)--received Vitamin K. 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 Patient is continued on the her home dose of Keppra thousand milligram 1 tablet twice a day. Continue neuro checks. Patient is on Lipitor 40mg qhs. She is on Coumadin. We'll defer the rest of the medical management to primary team Upon discharge recommend the patient follow up with a neurologist within 2-3 weeks as an outpatient. Next The plan is discussed with the patient's nurse. Thank you for the consultation. Pranav Thompson M.D. Neuro-hospitalist Time with Patient: Greater than 30
--- NOTE | 2021-03-04 11:30 | EEG ---
ELECTROENCEPHALOGRAM REPORT DATE OF SERVICE: 03/04/2021. CLINICAL HISTORY: This is a 70-year-old woman with a medical history of seizure who presented to our emergency department because of altered mental status. The video EEG is obtained to evaluate for seizure epileptiform activity. RELEVANT MEDICATION: Keppra. EEG TYPE: A routine 21-channel EEG is performed with video using the 10/20 electrode placement system. DESCRIPTION: Wakefulness and drowsiness are obtained. During awake state background consists of low to moderate voltage that is well modulated of 5 hertz theta activity. There is no physiological stage 2 sleep architecture. There is no focal slowing. Interictal and ictal is none. ACTIVATION PROCEDURES: Photic stimulation did not evoke a posterior driving response. There is no abnormality during photic stimulation. Hyperventilation is not performed. CLINICAL INTERPRETATION: This is an abnormal routine EEG. The background slowing is suggestive of moderate encephalopathy, likely due to metabolic abnormality. There is no focal slowing, epileptiform discharge or seizure on the EEG. Clinical correlation is recommended. GIA / ИРИНАN: [id number] / POLO
--- NOTE | 2021-03-04 11:58 | P.PN ---
Subjective Patient is a pleasant 70-year-old female snf resident since her stroke many years ago with residual left sided weakness mostly nonambulatory bedbound was a sent in here because of confusion episodes. The concern was stroke although patient has significant electrolyte abnormalities and patient doesn't feel right when I entered the patient although there are no obvious symptoms. Patient does have history of congestive heart failure had history of valvular replacement patient had a previous ejection fraction of around 40-45% I do not have any BNP available. Patient clinically appeared to be dehydrated patient is a hyponatremic, hypokalemic magnesium is not available. Patient is on Bumex, metolazone, Aldactone at home. Patient is also on Coumadin for valvular atrial fibrillation and INR is unable around 10 patient doesn't have any GI bleed at this time or any other bleed at this time. CT of the brain showed age-related atrophy and chronic spondylosis ischemia. 03/04/2021 Patient clinically improved generalized weakness improved and confusion improved patient had an EEG which showed a metabolic encephalopathy and a generalized slowing, serum sodium remains at 129. Patient is being continued on the gentle hydration. Leukocytosis improved Constitutional: Denied any fatigue denied any fever. Cardio vascular: denied any chest pain, palpitations Gastrointestinal denied any nausea vomiting Pulmonary: Denied any shortness of breath cough Neurologic denied any new focal deficits All inpatient medications were reviewed and appropriate changes in these medications as dictated in the interval history and assessment and plan. PHYSICAL EXAMINATION: GENERAL: The patient is alert and oriented x3, not in any acute distress. Well developed, well nourished. HEENT: Pupils are round and equally reacting to light. EOMI. No scleral icterus. No conjunctival pallor. Normocephalic, atraumatic. No pharyngeal erythema. No thyromegaly. CARDIOVASCULAR: S1 and S2 present. No rubs, or gallops. PULMONARY: Chest is clear to auscultation, no wheezing or crackles. ABDOMEN: Soft, nontender, nondistended, normoactive bowel sounds. No palpable organomegaly. MUSCULOSKELETAL: No joint swelling or deformity. EXTREMITIES: No cyanosis, clubbing, or pedal edema. NEUROLOGICAL: Sided weakness left-sided strength is around 0/5 SKIN: No rashes. dry skin and mucous membranes Assessment and plan -Altered mental status: Secondary to metabolic encephalopathy from metabolic abnormalities and dehydration. Improved EEG showed metabolic encephalopathy and generalized slowing. Diuretics will be held temporarily patient will be hydrated along with supplementation of potassium and magnesium level will be obtained. -Hyponatremia hypovolemic hyponatremia secondary to excessive diuresis patient doesn't have any diarrhea nausea or vomiting, serum sodium remained fairly stable -Anion gap metabolic acidosis probably is secondary to uremia there may be a competent of lactic acidosis, improved now -Acute renal failure secondary to excessive diuresis. -Congestive heart failure chronic systolic dysfunction may have had diastolic dysfunction patient is hypovolemic at this time not in acute exacerbation. 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 side -hyperlipidemia -Seizure disorder for which patient is on Keppra which will be continued -Chronic debility due to multiple medical problems DVT prophylaxis: On Coumadin Objective - Vital Signs Vital signs: Vital Signs Temp 97.3 F L 03/04/21 08:35 Pulse 82 03/04/21 08:35 Resp 20 03/04/21 08:35 BP 100/70 03/04/21 08:35 Pulse Ox 99 03/04/21 08:35 Intake & Output 03/03/21 03/04/21 03/04/21 18:59 06:59 18:59 Weight 127.006 kg 127.006 kg Other: Voiding Method Indwelling Catheter Indwelling Catheter # Voids 400 - Labs CBC & Chem 7: 03/04/21 06:41 03/04/21 06:41 Labs: Abnormal Lab Results - Last 24 Hours (Table) 03/03/21 03/03/21 03/03/21 Range/Units 14:57 14:57 14:57 WBC 12.6 H (3.8-10.6) k/uL Hgb 16.9 H (11.4-16.0) gm/dL Hct 49.7 H (34.0-46.0) % Neutrophils # 9.6 H (1.3-7.7) k/uL PT 106.8 H (9.0-12.0) sec INR >10.0 H* (<1.2) APTT 51.0 H (22.0-30.0) sec Sodium 130 L (137-145) mmol/L Potassium 2.4 L* (3.5-5.1) mmol/L Chloride 76 L (98-107) mmol/L Carbon Dioxide 40 H (22-30) mmol/L BUN 57 H (7-17) mg/dL Glucose 144 H (74-99) mg/dL Total Bilirubin 1.7 H (0.2-1.3) mg/dL AST 47 H (14-36) U/L Alkaline Phosphatase 242 H (38-126) U/L Total Protein 9.0 H (6.3-8.2) g/dL Albumin (3.5-5.0) g/dL 03/04/21 03/04/21 Range/Units 06:41 06:41 WBC (3.8-10.6) k/uL Hgb (11.4-16.0) gm/dL Hct (34.0-46.0) % Neutrophils # (1.3-7.7) k/uL PT 18.4 H (9.0-12.0) sec INR 1.9 H (<1.2) APTT (22.0-30.0) sec Sodium 129 L (137-145) mmol/L Potassium (3.5-5.1) mmol/L Chloride 90 L (98-107) mmol/L Carbon Dioxide 34 H (22-30) mmol/L BUN 50 H (7-17) mg/dL Glucose 122 H (74-99) mg/dL Total Bilirubin 2.2 H (0.2-1.3) mg/dL AST (14-36) U/L Alkaline Phosphatase 195 H (38-126) U/L Total Protein (6.3-8.2) g/dL Albumin 3.3 L (3.5-5.0) g/dL
[2021-03-04] MEDS: SODIUM CHLORIDE 0.9% 1,000 ML IV SCH (12:57)
[2021-03-04] MEDS ORDERED: WARFARIN 1.5 MG TAB PO SCH (18:00)
[2021-03-04] MEDS: ATORVASTATIN 40 MG TAB PO SCH (20:39)
[2021-03-04] MEDS: SENNOSIDES 8.6 MG TAB PO SCH (20:39)
[2021-03-05 10:11] LABS: African American GFR (CKD) >90 (>60 ml/min/1.73 sqM); Anion Gap 6 mmol/L; Blood Urea Nitrogen 34 mg/dL (7-17); Calcium 8.9 mg/dL (8.4-10.2); Carbon Dioxide 33 mmol/L (22-30); Chloride 92 mmol/L (98-107); Glucose 160 mg/dL (74-99); Magnesium 2.1 mg/dL (1.6-2.3); Non-African American GFR(CKD) 88 (>60 ml/min/1.73 sqM); Potassium 2.9 mmol/L (3.5-5.1); Sodium 131 mmol/L (137-145)
[2021-03-05 10:29] LABS: INR 1.1 (<1.2)
[2021-03-05] MEDS: SERTRALINE 50 MG TAB PO SCH (10:39)
[2021-03-05] MEDS: polyethylene glycoL 3350 17 GM POWD.PACK PO SCH (10:39)
[2021-03-05] MEDS: METOPROLOL TARTRATE 12.5 MG TAB PO SCH (10:39)
[2021-03-05] MEDS: GABAPENTIN 300 MG CAP PO SCH (10:39)
[2021-03-05] MEDS: levETIRAcetam 500 MG TAB PO SCH (10:39)
[2021-03-05] MEDS: SODIUM CHLORIDE 0.9% 1,000 ML IV SCH (10:42)
[2021-03-05] MEDS ORDERED: POTASSIUM CHLORIDE ER 20 MEQ TAB.ER PO SCH ×3 (11:01→13:00)
--- NOTE | 2021-03-05 11:10 | P.DS ---
Providers Date of admission: 03/03/21 16:36 Attending physician: Kalen Bustamante Consults: 03/03/21 16:37 Consult Physician Routine Consulting Provider: Pranav Thompson Consult Reason/Comments: ams Do you want consulting provider notified?: Yes Consult Physician Routine Consulting Provider: Aryan Ndiaye Consult Reason/Comments: Hypokalemia with renal insufficiency Do you want consulting provider notified?: Yes Primary care physician: Stated None Hospital Course: Patient is a pleasant 70-year-old female alf resident since her stroke many years ago with residual left sided weakness mostly nonambulatory bedbound was a sent in here because of confusion episodes. The concern was stroke although patient has significant electrolyte abnormalities and patient doesn't feel right when I entered the patient although there are no obvious symptoms. Patient does have history of congestive heart failure had history of valvular replacement patient had a previous ejection fraction of around 40-45% I do not have any BNP available. Patient clinically appeared to be dehydrated patient is a hyponatremic, hypokalemic magnesium is not available. Patient is on Bumex, metolazone, Aldactone at home. Patient is also on Coumadin for valvular atrial fibrillation and INR is unable around 10 patient doesn't have any GI bleed at this time or any other bleed at this time. CT of the brain showed age-related atrophy and chronic spondylosis ischemia. 03/04/2021 Patient clinically improved generalized weakness improved and confusion improved patient had an EEG which showed a metabolic encephalopathy and a generalized slowing, serum sodium remains at 129. Patient is being continued on the gentle hydration. Leukocytosis improved 03/05/2020 Patient is clinically doing well patient is cleared by neurology patient is believed to have metabolic encephalopathy from dehydration. Patient was on diuretics dose of the diuretics are being cut down discussed with nephrology on phone. Patient the metolazone will be discontinued, Bumex will be cut down to 2 daily from 2 twice a day continue with Aldactone. Patient will hold off all the diuretics today and tomorrow we will resume on Sunday. Patient will need a basic metabolic profile and INR repeated on Sunday. Patient is presently subtherapeutic as she received vitamin K in ER couple days ago. Patient came in with INR of 10 because of which I'm decreasing the dose of Coumadin to 2 mg daily. Patient had valvular A. fib. Patient is presently rate controlled. Patient is severely hypokalemic potassium will be sent to replace it. Patient need to closely follow with nephrology as an outpatient. PHYSICAL EXAMINATION: GENERAL: The patient is alert and oriented x3, not in any acute distress. Well developed, well nourished. HEENT: Pupils are round and equally reacting to light. EOMI. No scleral icterus. No conjunctival pallor. Normocephalic, atraumatic. No pharyngeal erythema. No thyromegaly. CARDIOVASCULAR: S1 and S2 present. No rubs, or gallops. PULMONARY: Chest is clear to auscultation, no wheezing or crackles. ABDOMEN: Soft, nontender, nondistended, normoactive bowel sounds. No palpable organomegaly. MUSCULOSKELETAL: No joint swelling or deformity. EXTREMITIES: No cyanosis, clubbing, or pedal edema. NEUROLOGICAL: Sided weakness left-sided strength is around 0/5 SKIN: No rashes. dry skin and mucous membranes Assessment and plan -Altered mental status: Secondary to metabolic encephalopathy from metabolic abnormalities and dehydration. Improved EEG showed metabolic encephalopathy and generalized slowing. Diuretics will be held temporarily patient will be hydrated along with supplementation of potassium and magnesium level will be obtained. -Hyponatremia hypovolemic hyponatremia secondary to excessive diuresis patient doesn't have any diarrhea nausea or vomiting, serum sodium improved with the gentle hydration. -Anion gap metabolic acidosis probably is secondary to uremia there may be a competent of lactic acidosis, improved now -Acute renal failure secondary to excessive diuresis. Improved now -Congestive heart failure chronic systolic dysfunction may have had diastolic dysfunction patient is hypovolemic at this time not in acute exacerbation. - paroxysmal atrial fibrillation valvular for which patient is on Coumadin patient INR is supratherapeutic on admission, improved now patient is subtherapeutic now and will be discharged on 2 mg of Coumadin -Coronary artery disease with history of CABG in the past -History of cerebrovascular accident with residual weakness on the left side -hyperlipidemia -Seizure disorder for which patient is on Keppra which will be continued -Chronic debility due to multiple medical problems Plan - Discharge Summary Discharge Rx Participant: No New Discharge Prescriptions: Continue Atorvastatin Calcium [Lipitor] 40 mg PO HS Gabapentin 600 mg PO BID@0900,1700 levETIRAcetam 1,000 mg PO BID@0900,2100 Spironolactone [Aldactone] 25 mg PO DAILY bisacodyL [Dulcolax] 10 mg RECTAL Q72H PRN PRN Reason: Constipation Acetaminophen Tab [Tylenol] 650 mg PO Q6H PRN PRN Reason: Pain Magnesium Hydroxide [Milk of Magnesia] 2,400 mg PO Q72H PRN PRN Reason: Constipation Sennosides [Senna] 17.2 mg PO HS Meclizine [Antivert] 12.5 mg PO Q8H PRN PRN Reason: Vertigo Morphine Sulfate ER [Ms Contin] 30 mg PO HS polyethylene glycoL 3350 [Miralax] 17 gm PO DAILY traMADol HCl [Ultram] 50 mg PO BID PRN PRN Reason: TOOTH PAIN Melatonin 3 mg PO HS PRN PRN Reason: Insomnia Metoprolol Tartrate [Lopressor] 12.5 mg PO BID Sertraline [Zoloft] 50 mg PO DAILY Baclofen 5 mg PO HS Changed Warfarin [Coumadin] 2 mg PO DAILY #0 Potassium Chloride ER [K-Dur 20] 20 meq PO BID #0 Bumetanide [BUMEX] 2 mg PO DAILY #0 Discontinued Warfarin [Coumadin] 2.5 mg PO MOFR@1700 metOLazone [Zaroxolyn] 5 mg PO DAILY Discharge Medication List Atorvastatin Calcium [Lipitor] 40 mg PO HS 09/06/15 [History] Gabapentin 600 mg PO BID@0900,1700 09/13/15 [History] Spironolactone [Aldactone] 25 mg PO DAILY 11/23/16 [History] levETIRAcetam 1,000 mg PO BID@0900,2100 11/23/16 [History] Acetaminophen Tab [Tylenol] 650 mg PO Q6H PRN 10/01/17 [History] Magnesium Hydroxide [Milk of Magnesia] 2,400 mg PO Q72H PRN 10/01/17 [History] Sennosides [Senna] 17.2 mg PO HS 10/01/17 [History] bisacodyL [Dulcolax] 10 mg RECTAL Q72H PRN 10/01/17 [History] Meclizine [Antivert] 12.5 mg PO Q8H PRN 02/20/18 [History] Morphine Sulfate ER [Ms Contin] 30 mg PO HS 02/20/18 [History] Baclofen 5 mg PO HS 03/03/21 [History] Melatonin 3 mg PO HS PRN 03/03/21 [History] Metoprolol Tartrate [Lopressor] 12.5 mg PO BID 03/03/21 [History] Sertraline [Zoloft] 50 mg PO DAILY 03/03/21 [History] polyethylene glycoL 3350 [Miralax] 17 gm PO DAILY 03/03/21 [History] traMADol HCl [Ultram] 50 mg PO BID PRN 03/03/21 [History] Bumetanide [BUMEX] 2 mg PO DAILY #0 03/05/21 [Rx] Potassium Chloride ER [K-Dur 20] 20 meq PO BID #0 03/05/21 [Rx] Warfarin [Coumadin] 2 mg PO DAILY #0 03/05/21 [Rx] Follow up Appointment(s)/Referral(s): Rich Rodríguez MD [STAFF PHYSICIAN] - 1 Week Aryan Ndiaye DO [STAFF PHYSICIAN] - 1 Week Activity/Diet/Wound Care/Special Instructions: Cardiac, diabetic diet. Coumadin diet. Repeat basic metabolic profile and INR on Sunday
[2021-03-05] MEDS: POTASSIUM CHLORIDE ER 20 MEQ TAB.ER PO SCH ×2 (11:23→12:05)
[2021-03-05] MEDS: POTASSIUM CHLORIDE 10 MEQ in WATER FOR INJECTION 1 100ML.BAG IVPB SCH ×2 (12:05→13:00)
--- NOTE | 2021-03-05 12:53 | P.PN ---
Subjective Progress Note Date: 03/05/21 The patient is seen at bedside and feels more awake and focused today compared to yesterday. She denies of any further neurological problems. Objective - Vital Signs Vital signs: Vital Signs Temp 98 F 03/05/21 08:52 Pulse 87 03/05/21 08:52 Resp 15 03/05/21 08:52 BP 113/62 03/05/21 08:52 Pulse Ox 98 03/05/21 08:52 Intake & Output 03/04/21 03/05/21 03/05/21 18:59 06:59 18:59 Intake Total 1510 929 180 Output Total 1200 Balance 1510 -271 180 Intake: Intake, IV Titration 550 Amount Sodium Chloride 0.9% 1, 550 000 ml @ 50 mls/hr IV . Q20H [facility] Rx#:[id number] Oral 960 929 180 Output: Urine 1200 Uretheral (Rodríguez) 1200 Other: Voiding Method Indwelling Catheter Indwelling Catheter Indwelling Catheter # Bowel Movements 1 - Exam GENERAL: The patient is a morbid obese woman, lying in bed and is not in acute distress. CHEST: The heart rate is regular rate rhythm. No murmurs to auscultation. . LUNG: Clear to auscultation bilaterally no wheezing noted throughout. Not labored breathing. ABDOMEN/GI: Bowel sounds present in all 4 quadrants. No tenderness to palpation throughout. NEUROLOGICAL: Higher mental function: The patient is awake, alert, oriented to self and time. She stated she in the hospital but does not know name. Patient is following simple commands.She seems more responsive today compared to yesterday. No aphasia and no neglect. Cranial nerves: The pupils are round, equal and reactive to light and accommodation. Visual keith are full to confrontation throughout. Extraocular movement is intact no nystagmus is noted. Facial sensation is normal to touch throughout. The facial strength is mild left lower facial droop. Hearing is normal bilaterally to hand rub. Tongue is midline and moved [id number] without any difficulty. No dysarthria is noted. Shoulder shrug is normal bilaterally. Motor: The strength is 0/5 over the left side otherwise right upper extremity is 5/5 and right lower extremity is able to extend her knee upon helping lift right leg and ankle is 4 (right lower extremity movement is chronic). Increase tone over the left. Decrease bulk over the left upper side. Cerebellum: Normal finger to nose heel to donato bilaterally. Sensation: Sensation is normal to touch throughout. Reflexes (right/left):2+ throughout right upper while left is 1+. Lowers are 1+. Plantars are mute bilaterally. WORK-UP: Initial white blood cells 12.6 and the repeat is 9.6. Initial sodium is 1:30, potassium 2.4, creatinine is 1.01, serum glucose is 144, calcium is 9.6, magnesium 2.1, AST is 47, ALT of 18. Initial BUN is 57 and the repeat is 50. López virus PCR was not detected Initial INR is a more than 10.0 and a repeat is 1.9, initial also PT is 100.6 and the repeated is 18.4. Patient received Vitamin K. CT of the head is reported as age-related changes of atrophy, chronic small vessel ischemia. Consider MRI for better evaluation as indicated. In the body of the report and it is reported that there and there is areas of encephalomalacia seen on previous exam are again noted consider with remote c erebrovascular accident. I personally reviewed the CT of the head and there is no acute or subacute ischemia there is no tubercle hemorrhage. The patient has an old right internal capsule/lópez radiata stroke and I personally reviewed the report on 2018 and is also mentioned to the patient has an old right internal capsule related to old lacunar infarct. Was reported also in that 2017 CT brain as well. Routine EEG is abnormal. The background slowing suggestive of moderate encephalopathy likely due to metabolic abnormality. There is no focal slowing, epileptiform discharges or seizure on the EEG. - Labs CBC & Chem 7: 03/04/21 06:41 03/05/21 09:19 Labs: Abnormal Lab Results - Last 24 Hours (Table) 03/05/21 Range/Units 09:19 Sodium 131 L (137-145) mmol/L Potassium 2.9 L (3.5-5.1) mmol/L Chloride 92 L (98-107) mmol/L Carbon Dioxide 33 H (22-30) mmol/L BUN 34 H (7-17) mg/dL Glucose 160 H (74-99) mg/dL Assessment and Plan Assessment: Altered mental status likely due to metabolic encephalopathy and has electrolyte abnormality/elevated BUN--mentation improved Mild hyponatremia Acute hypokalemia---resolved Slight elevated LFT's---resolved Coagulopathy (presented with INR of >10 and most recent INR is 1.9)--received Vitamin K. 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 Continue neuro checks. Patient is on Lipitor 40mg qhs. She is on Coumadin. We'll defer the rest of the medical management to primary team Upon discharge recommend the patient follow up with a neurologist within 2-3 weeks as an outpatient. The plan is discussed with the patient's nurse. There is no further neurological work-up. Pranav Thompson M.D. Neuro-hospitalist Time with Patient: Less than 30
[2021-03-05 13:00] VITALS: BP 131/77; PULSE 81; RESP 16; TEMP 98.1
--- NOTE | 2021-03-05 15:24 | P.PN ---
Subjective Progress Note Date: 03/05/21 Follow-up for electrolyte abnormalities with hypokalemia and hyponatremia. Objective - Vital Signs Vital signs: Vital Signs Temp 98.1 F 03/05/21 12:59 Pulse 81 03/05/21 12:59 Resp 16 03/05/21 12:59 BP 131/77 03/05/21 12:59 Pulse Ox 99 03/05/21 12:59 Intake & Output 03/04/21 03/05/21 03/05/21 18:59 06:59 18:59 Intake Total 1510 929 360 Output Total 1200 600 Balance 1510 -271 -240 Intake: Intake, IV Titration 550 Amount Sodium Chloride 0.9% 1, 550 000 ml @ 50 mls/hr IV . Q20H [facility] Rx#:[id number] Oral 960 929 360 Output: Urine 1200 600 Uretheral (Rodríguez) 1200 Other: Voiding Method Indwelling Catheter Indwelling Catheter Indwelling Catheter # Bowel Movements 1 - Exam No acute distress S1-S2 heard Lungs clear No edema - Labs CBC & Chem 7: 03/04/21 06:41 03/05/21 09:19 Labs: Abnormal Lab Results - Last 24 Hours (Table) 03/05/21 Range/Units 09:19 Sodium 131 L (137-145) mmol/L Potassium 2.9 L (3.5-5.1) mmol/L Chloride 92 L (98-107) mmol/L Carbon Dioxide 33 H (22-30) mmol/L BUN 34 H (7-17) mg/dL Glucose 160 H (74-99) mg/dL Assessment and Plan Assessment: #1 hypokalemia with alkalosis suspect secondary to diuretic use. -Rule out secondary causes as outpatient as she is needing 60 mEq daily of potassium. #2 hypovolemic hyponatremia secondary to diuretic use. #3 low normal blood pressures, #4 diastolic CHF Plan: #1 renal function stable. #2 agree with primary team with 2 mg of Bumex daily along with 25 mg of Aldactone. 20 mEq of potassium supplements daily. #3 repeat labs and follow up in the office in a week #4 stable from nephrology for discharge. #5 avoid metolazone with severe hyponatremia
== END 2021-03-05 15:01 | DRG 71 ==
LOC: EC 14:11 → 4SSUR 16:36 → 3SCARD 17:32
PROVIDERS: ADMIT Internal Medicine; ATTEND Internal Medicine
DX: G93.41 Metabolic encephalopathy (principal); I50.22 Chronic systolic (congestive) heart failure; N17.9 Acute kidney failure, unspecified; D68.9 Coagulation defect, unspecified; I69.354 Hemiplegia and hemiparesis following cerebral infarction affecting left non-dominant side; Z68.42 Body mass index [BMI] 45.0-49.9, adult; E87.1 Hypo-osmolality and hyponatremia; E87.2 Acidosis; E87.4 Mixed disorder of acid-base balance; Z20.822 Contact with and (suspected) exposure to COVID-19; G92.8 Other toxic encephalopathy; T45.0X5A Adverse effect of antiallergic and antiemetic drugs, initial encounter; E86.0 Dehydration; Z79.01 Long term (current) use of anticoagulants; I48.0 Paroxysmal atrial fibrillation; I25.10 Atherosclerotic heart disease of native coronary artery without angina pectoris; Z95.1 Presence of aortocoronary bypass graft; E78.5 Hyperlipidemia, unspecified; G40.909 Epilepsy, unspecified, not intractable, without status epilepticus; R53.81 Other malaise; E87.6 Hypokalemia; G31.89 Other specified degenerative diseases of nervous system; T50.2X5A Adverse effect of carbonic-anhydrase inhibitors, benzothiadiazides and other diuretics, initial encounter; M21.379 Foot drop, unspecified foot; R29.6 Repeated falls; E66.01 Morbid (severe) obesity due to excess calories; Z74.01 Bed confinement status; Z95.2 Presence of prosthetic heart valve; X58.XXXA Exposure to other specified factors, initial encounter; D72.829 Elevated white blood cell count, unspecified; E86.1 Hypovolemia; F32.A Depression, unspecified; G93.89 Other specified disorders of brain; M47.9 Spondylosis, unspecified; R32 Unspecified urinary incontinence; Z79.899 Other long term (current) drug therapy; Z87.81 Personal history of (healed) traumatic fracture; Z80.1 Family history of malignant neoplasm of trachea, bronchus and lung; Z82.49 Family history of ischemic heart disease and other diseases of the circulatory system; Z88.5 Allergy status to narcotic agent; Z88.8 Allergy status to other drugs, medicaments and biological substances; Z91.81 History of falling; Z90.49 Acquired absence of other specified parts of digestive tract; Z87.01 Personal history of pneumonia (recurrent)
CPT/HCPCS: 36415; 70450; 71046; 80048; 80053; 83605; 83735; 83880; 84484; 85025; 85610; 85730; 87635; 93005; 95816; 96365; 96366; 99285

== ENCOUNTER 2022-06-20 11:18 | Inpatient (IN) | payer MEDICARE ==
[2022-06-20 12:26] LABS: Potassium 4.2 mmol/L (3.5-5.1)
[2022-06-20 12:27] LABS: Albumin 2.8 g/dL (3.5-5.0); Calcium 7.7 mg/dL (8.4-10.2); Total Bilirubin 1.9 mg/dL (0.2-1.3)
[2022-06-20] MEDS ORDERED: SODIUM CHLORIDE 0.9% 500 ML 500 ML IV STA (12:32)
--- NOTE | 2022-06-20 12:38 | ED ---
General Adult HPI - General Chief complaint: Abdominal Pain Stated complaint: Possible sepsis Time Seen by Provider: 06/20/22 12:00 Source: patient, EMS, RN notes reviewed, old records reviewed Mode of arrival: EMS Limitations: no limitations - History of Present Illness Initial comments: This is a 72-year-old female presents emergency Department complaining of abdominal pain. Patient is a very poor historian she doesn't know when it began and she's not sure why the [facility]. Patient does state her belly is bigger than normal and it hurts. Patient denies nausea vomiting she denies diarrhea. Patient denies any fever chills. Patient states the pain is more in the left upper and anymore else. Patient denies chest pain patient denies difficulty breathing or shortness of breath. - Related Data Home Medications Medication Instructions Recorded Confirmed Atorvastatin Calcium [Lipitor] 40 mg PO HS 09/06/15 06/20/22 Gabapentin 600 mg PO BID@0900,1700 09/13/15 06/20/22 Spironolactone [Aldactone] 25 mg PO DAILY 11/23/16 06/20/22 levETIRAcetam 1,000 mg PO BID 11/23/16 06/20/22 Acetaminophen Tab [Tylenol] 650 mg PO Q6H PRN 10/01/17 06/20/22 Magnesium Hydroxide [Milk of 2,400 mg PO Q72H PRN 10/01/17 06/20/22 Magnesia] Sennosides [Senna] 17.2 mg PO HS 10/01/17 06/20/22 Baclofen 5 mg PO BID 03/03/21 06/20/22 Metoprolol Tartrate [Lopressor] 12.5 mg PO BID 03/03/21 06/20/22 Sertraline [Zoloft] 50 mg PO DAILY 03/03/21 06/20/22 Bumetanide [BUMEX] 2 mg PO BID 06/20/22 06/20/22 Docusate Sodium [Dok] 100 mg PO BID 06/20/22 06/20/22 Hydrocortisone Cream 1 applic TOPICAL HS 06/20/22 06/20/22 [Hydrocortisone 1% Cream] Lactulose 20 gm PO BID 06/20/22 06/20/22 Midodrine HCl [ProAmantine] 2.5 mg PO TID@0700,1300,1900 05/09/23 05/09/23 Morphine Sulfate ER [Ms Contin] 30 mg PO HS 06/20/22 06/20/22 Na Phos,M-B/Na Phos,Di-Ba [Fleet 133 ml RECTAL DAILY PRN 06/20/22 06/20/22 Adult] Warfarin [Coumadin] 2.5 mg PO HS 06/20/22 06/20/22 traMADol HCl [Ultram] 50 mg PO BID PRN 06/20/22 06/20/22 Previous Rx's Medication Instructions Recorded Potassium Chloride ER [K-Dur 20] 20 meq PO BID #0 03/05/21 Allergies Allergy/AdvReac Type Severity Reaction Status Date / Time codeine Allergy Chest Pain Verified 06/20/22 15:43 lorazepam [From Ativan] AdvReac GIVES THE Verified 06/20/22 15:43 OPPOSITE EFFECT Review of Systems ROS Statement: Those systems with pertinent positive or pertinent negative responses have been documented in the HPI. ROS Other: All systems not noted in ROS Statement are negative. 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 Left shoulder fracture 2016, 2018.bakers cyst behind rt knee. History of Any Multi-Drug Resistant Organisms: None Reported Past Surgical History: Appendectomy, Cardiac Valve Replacement, Cholecystectomy, Heart Catheterization, Tubal Ligation Additional Past Surgical History / Comment(s): COLONOSCOPY, STATED HAD A "MITRAL VALVE REPLACEMENT" Past Anesthesia/Blood Transfusion Reactions: No Reported Reaction Past Psychological History: Depression Smoking Status: Never smoker Past Alcohol Use History: None Reported Past Drug Use History: None Reported - Past Family History Father Family Medical History: Cancer Additional Family Medical History / Comment(s): BRAIN AND LUNG CANCER Mother Family Medical History: Coronary Artery Disease (CAD), Dementia Additional Family Medical History / Comment(s): PT COULDN'T REMEMBER WHAT MOM FROM General Exam - General Exam Comments Initial Comments: GENERAL: Patient is well-developed and well-nourished. Patient is nontoxic and well- hydrated and is in mild distress. ENT: Neck is soft and supple. No significant lymphadenopathy is noted. Oropharynx is clear. Moist mucous membranes. Neck has full range of motion without eliciting any pain. EYES: The sclera were anicteric and conjunctiva were pink and moist. Extraocular movements were intact and pupils were equal round and reactive to light. Eyelids were unremarkable. PULMONARY: Unlabored respirations. Good breath sounds bilaterally. No audible rales rhonchi or wheezing was noted. CARDIOVASCULAR: There is a regular rate and rhythm without any murmurs gallops or rubs. ABDOMEN: Abdomen is distended and quite tender the left mid and left upper quadrant SKIN: Skin is clear with no lesions or rashes and otherwise unremarkable. NEUROLOGIC: Patient is alert and oriented x3. Cranial nerves II through XII are grossly i ntact. Motor and sensory are also intact. Normal speech, volume and content. Symmetrical smile. MUSCULOSKELETAL: Normal extremities with adequate strength and full range of motion. No lower extremity swelling or edema. No calf tenderness. LYMPHATICS: No significant lymphadenopathy is noted PSYCHIATRIC: Normal psychiatric evaluation. Limitations: no limitations Course Vital Signs 06/20/22 06/20/22 06/20/22 11:22 11:55 12:12 Temperature 98.1 F Pulse Rate 103 H 110 H 100 Respiratory 18 18 18 Rate Blood Pressure 102/49 97/67 94/55 O2 Sat by Pulse 98 98 97 Oximetry 06/20/22 06/20/22 06/20/22 13:40 14:40 15:47 Temperature 98.5 F Pulse Rate 92 97 94 Respiratory 18 19 17 Rate Blood Pressure 113/65 107/71 110/63 O2 Sat by Pulse 96 99 98 Oximetry 06/20/22 16:08 Temperature Pulse Rate 96 Respiratory 17 Rate Blood Pressure 107/59 O2 Sat by Pulse 100 Oximetry Medical Decision Making - Medical Decision Making EKG was interpreted by myself shows atrial fibrillation at 100 bpm QRS is 88 QT interval 354 QTC is 411. Patient's EKG shows T-wave inversions in leads V1 and V2 and V3. Was pt. sent in by a medical professional or institution (, [facility], ELECTRIC DOLLY OPERATOR, urgent care, hospital, or [facility]...) When possible be specific @ -Was sent in from the [facility]. Did you speak to anyone other than the patient for history (EMS, parent, family, police, friend...)? What history was obtained from this source @ -No Did you review nursing and triage notes (agree or disagree)? Why? @ -I reviewed and agree with nursing and triage notes Were old charts reviewed (outside hosp., previous admission, EMS record, old EKG, old radiological studies, urgent care reports/EKG's, [facility] records)? Report findings @ -Reviewed prior lab work and charts on this patient. Differential Diagnosis (chest pain, altered mental status, abdominal pain women, abdominal pain men, vaginal bleeding, weakness, fever, dyspnea, syncope, headache, dizziness, GI bleed, back pain, seizure, CVA, palpatations, mental health, musculoskeletal)? @ -Differential Abdominal Pain Women: Appendicitis, Cholecystitis, diverticulosis, ischemic bowel, pancreatitis, hepatitis, UTI, gastroenteritis, AAA, incarcerated hernia, bowel obstruction, constipation, inflammatory bowel, hepatitis, peptic ulcer disease, splenic infarction, perforated viscus, vulvitis, ovarian torsion, PID, kidney stone, placenta abruption, this is not meant to be an all-inclusive list EKG interpreted by me (3pts min.). @ -As above X-rays interpreted by me (1pt min.). @ -Shows interpreted by myself shows no acute normalities. CT interpreted by me (1pt min.). @ -CT of the abdomen and pelvis was interpreted by myself that shows a large rectus hematoma with some extension into the peritoneum and it does show an area in the lung base on the right. Could be a hematoma as well U/S interpreted by me (1pt. min.). @ -None done What testing was considered but not performed or refused? (CT, X-rays, U/S, labs)? Why? @ -None What meds were considered but not given or refused? Why? @ -None Did you discuss the management of the patient with other professionals (professionals i.e. , PA, ELECTRIC DOLLY OPERATOR, lab, RT, psych nurse, social media job titles, costume specialist, teacher, school services officer, case maker)? Give summary @ -I spoke with sounds physician's they agreed to admit the patient and the patient wrote admitting orders Was smoking cessation discussed for >3mins.? @ -No Was critical care preformed (if so, how long)? @ -No Were there social determinants of health that impacted care today? How? (Homelessness, low income, unemployed, alcoholism, drug addiction, transportation, low edu. Level, literacy, decrease access to med. care, intermediate, rehab)? @ -No Was there de-escalation of care discussed even if they declined (Discuss DNR or withdrawal of care, Hospice)? DNR status @ -No What co-morbidities impacted this encounter? (DM, HTN, Smoking, COPD, CAD, Cancer, CVA, ARF, Chemo, Hep., AIDS, mental health diagnosis, sleep apnea, morbid obesity)? @ -None Was patient admitted / discharged? Hospital course, mention meds given and route, prescriptions, significant lab abnormalities, going to OR and other pertinent info. @ -Patient had a large hematoma and hemoglobin drops I started the patient on vitamin K and case center. I spoke with Dr. Levine he was willing to be on c onsult. I spoke with [facility] physician's they were willing to be the admitting physician. I did serial CBCs. Undiagnosed new problem with uncertain prognosis? @ -No Drug Therapy requiring intensive monitoring for toxicity (Heparin, Nitro, Ins ulin, Cardizem)? @ -No Were any procedures done? @ -No Diagnosis/symptom? @ -Rectus hematoma Acute, or Chronic, or Acute on Chronic? @ -Acute Uncomplicated (without systemic symptoms) or Complicated (systemic symptoms)? @ -Complicated Side effects of treatment? @ -No Exacerbation, Progression, or Severe Exacerbation? @ -No Poses a threat to life or bodily function? How? (Chest pain, [place], [place], pneumonia, PE, COPD, DKA, ARF, appy, cholecystitis, CVA, Diverticulitis, Homicidal, Suicidal, threat to staff... and all critical care pts) @ -Yes patient is losing blood and could lead to hypoperfusion and end organ dy sfunction Diagnosis/symptom? @ -Anemia Acute, or Chronic, or Acute on Chronic? @ -Acute Uncomplicated (without systemic symptoms) or Complicated (systemic symptoms)? @ -default Side effects of treatment? @ -none Exacerbation, Progression, or Severe Exacerbation] @ -no Poses a threat to life or bodily function? @ -no Diagnosis/symptom? @ -Coagulopathy Acute, or Chronic, or Acute on Chronic? @ -Acute Uncomplicated (without systemic symptoms) or Complicated (systemic symptoms)? @ -Complicated Side effects of treatment? @ -[none] Exacerbation, Progression, or Severe Exacerbation] @ -[no] Poses a threat to life or bodily function? @ -yes this could lead to exsanguination and - Lab Data Result diagrams: 06/20/22 11:53 06/20/22 11:53 Lab Results 06/20/22 06/20/22 06/20/22 Range/Units 11:53 11:53 12:42 WBC 14.4 H (3.8-10.6) k/uL RBC 3.02 L (3.80-5.40) m/uL Hgb 9.1 L (11.4-16.0) gm/dL Hct 29.4 L (34.0-46.0) % MCV 97.2 (80.0-100.0) fL MCH 29.9 (25.0-35.0) pg MCHC 30.8 L (31.0-37.0) g/dL RDW 14.8 (11.5-15.5) % Plt Count 430 (150-450) k/uL MPV 8.2 Neutrophils % 79 % Lymphocytes % 8 % Monocytes % 8 % Eosinophils % 3 % Basophils % 0 % Neutrophils # 11.5 H (1.3-7.7) k/uL Lymphocytes # 1.2 (1.0-4.8) k/uL Monocytes # 1.1 H (0-1.0) k/uL Eosinophils # 0.4 (0-0.7) k/uL Basophils # 0.1 (0-0.2) k/uL Hypochromasia Slight PT (9.0-12.0) sec INR (<1.2) APTT (22.0-30.0) sec Sodium 127 L (137-145) mmol/L Potassium 4.2 (3.5-5.1) mmol/L Chloride 89 L (98-107) mmol/L Carbon Dioxide 36 H (22-30) mmol/L Anion Gap 2 mmol/L BUN 19 H (7-17) mg/dL Creatinine 0.81 (0.52-1.04) mg/dL Est GFR (CKD-EPI)AfAm 86 (>60 ml/min/1.73 sqM) Est GFR (CKD-EPI)NonAf 74 (>60 ml/min/1.73 sqM) Glucose 121 H (74-99) mg/dL Plasma Lactic Acid Elliott 1.4 (0.7-2.0) mmol/L Calcium 7.7 L (8.4-10.2) mg/dL Total Bilirubin 1.9 H (0.2-1.3) mg/dL AST 40 H (14-36) U/L ALT 13 (4-34) U/L Alkaline Phosphatase 200 H (38-126) U/L Total Protein 6.0 L (6.3-8.2) g/dL Albumin 2.8 L (3.5-5.0) g/dL Amylase 40 (30-110) U/L Lipase 83 (23-300) U/L 06/20/22 Range/Units 13:25 WBC (3.8-10.6) k/uL RBC (3.80-5.40) m/uL Hgb (11.4-16.0) gm/dL Hct (34.0-46.0) % MCV (80.0-100.0) fL MCH (25.0-35.0) pg MCHC (31.0-37.0) g/dL RDW (11.5-15.5) % Plt Count (150-450) k/uL MPV Neutrophils % % Lymphocytes % % Monocytes % % Eosinophils % % Basophils % % Neutrophils # (1.3-7.7) k/uL Lymphocytes # (1.0-4.8) k/uL Monocytes # (0-1.0) k/uL Eosinophils # (0-0.7) k/uL Basophils # (0-0.2) k/uL Hypochromasia PT >130.0 H (9.0-12.0) sec INR >10.0 H* (<1.2) APTT 109.6 H* (22.0-30.0) sec Sodium (137-145) mmol/L Potassium (3.5-5.1) mmol/L Chloride (98-107) mmol/L Carbon Dioxide (22-30) mmol/L Anion Gap mmol/L BUN (7-17) mg/dL Creatinine (0.52-1.04) mg/dL Est GFR (CKD-EPI)AfAm (>60 ml/min/1.73 sqM) Est GFR (CKD-EPI)NonAf (>60 ml/min/1.73 sqM) Glucose (74-99) mg/dL Plasma Lactic Acid Elliott (0.7-2.0) mmol/L Calcium (8.4-10.2) mg/dL Total Bilirubin (0.2-1.3) mg/dL AST (14-36) U/L ALT (4-34) U/L Alkaline Phosphatase (38-126) U/L Total Protein (6.3-8.2) g/dL Albumin (3.5-5.0) g/dL Amylase (30-110) U/L Lipase (23-300) U/L Disposition Clinical Impression: Rectus sheath hematoma, Anemia, Hemothorax on right, Coagulopathy Disposition: ADMITTED IP TO THIS HOSP Referrals: Jerri Hodgson DO [Primary Care Provider] - 1-2 days Time of Disposition: 16:10
[2022-06-20 13:06] LABS: Basophils # (A) 0.1 k/uL (0-0.2); Basophils % (A) 0 %; Eosinophils # (A) 0.4 k/uL (0-0.7); Eosinophils % (A) 3 %; HCT 29.4 % (34.0-46.0); HGB 9.1 gm/dL (11.4-16.0); Hypochromasia Slight; Lymphocytes # (A) 1.2 k/uL (1.0-4.8); Lymphocytes % (A) 8 %; MCH 29.9 pg (25.0-35.0); MCHC 30.8 g/dL (31.0-37.0); MCV 97.2 fL (80.0-100.0); Mean Platelet Volume 8.2; Monocytes # (A) 1.1 k/uL (0-1.0); Monocytes % (A) 8 %; Neutrophils # (A) 11.5 k/uL (1.3-7.7); Neutrophils % (A) 79 %; Platelet Count 430 k/uL (150-450); RBC 3.02 m/uL (3.80-5.40); RDW 14.8 % (11.5-15.5); WBC 14.4 k/uL (3.8-10.6)
--- NOTE | 2022-06-20 13:43 | CT ---
EXAMINATION TYPE: CT abdomen pelvis w con CT DLP: 3156 mGycm, Automated exposure control for dose reduction was used. DATE OF EXAM: 06/20/2022 1:28 PM COMPARISON: CT lumbar spine 02/20/2018 CLINICAL INDICATION:Female, 72 years old with history of abdominal pain; Abdominal pain TECHNIQUE: Standard CT of the abdomen and pelvis following the administration of 100 cc of Isovue 3 00 IV contrast material. Coronal and sagittal reformats were performed. FINDINGS: Limited examination due to patient's body habitus. LOWER CHEST: Right lower lobe consolidation is partially visualized. Cardiomegaly. Mitral annular kirill vular prosthesis. ABDOMEN LIVER: Unremarkable GALLBLADDER AND BILE DUCTS: Gallbladder is surgically absent with mild intrahepatic and extra hepatic biliary dilatation likely physiologic and a postcholecystectomy change. No evidence of choledocholit hiasis. PANCREAS: Fatty infiltration. SPLEEN: Unremarkable. ADRENAL GLANDS: Unremarkable. KIDNEYS AND URETERS: No evidence of hydronephrosis or renal calculus. The kidneys enhance symmetrical ly with an exophytic left mid kidney 1.7 cm cyst. Additional smaller cysts within the inferior pole t he left kidney. Contrast is demonstrated within both collecting systems on delayed phase. PELVIS BLADDER: Under distended, limiting evaluation. REPRODUCTIVE: Unremarkable CT appearance of the anteverted uterus. Right ovarian 2.7 cm cystic lesion . ABDOMEN & PELVIS STOMACH AND BOWEL: Stomach and duodenum are unremarkable. No evidence of bowel obstruction. PERITONEUM: No evidence of pneumoperitoneum. VASCULATURE: No evidence of aortic aneurysm. Few pelvic phleboliths. MUSCULOSKELETAL: No acute osseous abnormalities . Median sternotomy wires. Schmorl's node involving t he superior endplate of the L2 vertebral body again. LYMPH NODES: No gross evidence for lymphadenopathy. SOFT TISSUE/ABDOMINAL WALL: Heterogenous hyperattenuating hematoma identified within the left rectus sheath measuring 16.6 x 12.5 x 7.3 cm in CC, TV, and AP dimensions. No obvious evidence of active ext ravasation. There is intraperitoneal extension (series 21, image 59). Foci gas within the right anter ior, wall subcutaneous tissues likely from medication injection. Mild anasarca. IMPRESSION: 1. Left rectus sheath hematoma measuring 16.6 x 12.5 x 7.3 with intraperitoneal extension. No obviou s evidence of active extravasation. 2. Partial visualization of right lower lobe consolidation. Consider further evaluation with chest ra diograph. 3. Right ovarian 2.7 cm cystic lesion. Further evaluation with outpatient pelvic ultrasound is recomm ended. Findings called to Dr. Hensley on 06/20/2022 at 1:38 PM.
[2022-06-20] MEDS ORDERED: PHYTONADIONE 10 MG in SODIUM CHLORIDE 0.9% 50 ML IVPB STA (14:10)
[2022-06-20] MEDS ORDERED: Kcentra PER PHARMACY 1 EACH MISC MISCELLANE PRN (14:11)
[2022-06-20] MEDS ORDERED: HUMAN PROTHROMBIN COMPLX IV ONE (14:30)
[2022-06-20] MEDS ORDERED: HUMAN PROTHROMBIN COMPLX 500 UNIT/16 ML VIAL IV ONE (14:30)
--- NOTE | 2022-06-20 14:32 | XR ---
EXAMINATION TYPE: XR chest 2V DATE OF EXAM: 06/20/2022 COMPARISON: 03/03/2021 INDICATION: Difficulty breathing TECHNIQUE: Frontal and lateral views of the chest are obtained. FINDINGS: The heart size is enlarged. Sternotomy wires are in the midline. The pulmonary vasculature is normal. No suspicious focal consolidation is evident.. IMPRESSION: 1. No acute pulmonary process. Follow-up can be performed as clinically indicated.
[2022-06-20 14:44] LABS: Prothrombin Time >130.0 sec (9.0-12.0)
[2022-06-20 14:46] LABS: INR >10.0 (<1.2)
[2022-06-20 14:48] LABS: Partial Thromboplastin Time 109.6 sec (22.0-30.0)
--- NOTE | 2022-06-20 15:32 | P.GSCN ---
History of Present Illness Consult date: 06/20/22 History of present illness: CHIEF COMPLAINT: Abdominal pain HISTORY OF PRESENT ILLNESS: This is a 72-year-old female who is brought in to the ER regarding abdominal pain. She is a poor historian. She presented from a [facility]. She reports that she has pain across the abdomen. She's been nauseated. No vomiting. She does take Coumadin for her history of A. fib and CVA. She reports having some constipation issues. She reports no blood in her stools. Patient was found to have an elevated INR of 10. Computed tomography scan of abdomen was completed that did show a left rectus sheath hematoma measuring 16.6 x 12.5 x 7.3 cm with intraperitoneal extension. No obvious evidence of active extravasation. Patient's hemoglobin was low at 9.1. Patient has received vitamin K and kcentra to reverse the Coumadin. Patient had been mildly tachycardic. She has been mildly hypotensive. PAST MEDICAL HISTORY: Atrial Fibrillation, Coronary Artery Disease (CAD), CVA/TIA, Hyperlipidemia, Pneumonia, Seizure Disorder PAST SURGICAL HISTORY: appendectomy, Cardiac Valve Replacement, Cholecystectomy, Heart Catheterization, Tubal Ligation MEDICATIONS: See below ALLERGIES: See below SOCIAL HISTORY: No illicit drug use. REVIEW OF SYSTEMS: CONSTITUTIONAL: Denies fever or chills. HEENT: Denies blurred vision, vision changes, or eye pain. Denies hemoptysis CARDIOVASCULAR: Denies chest pain or pressure. RESPIRATORY: No shortness of breath. GASTROINTESTINAL: See HPI for pertinent findings HEMATOLOGIC: Denies bleeding disorders. GENITOURINARY: Denies any blood in urine or increased urinary frequency. SKIN: Denies pruitis. Denies rash. PHYSICAL EXAM: VITAL SIGNS: Reviewed GENERAL: Well-developed in no acute distress. HEENT: No sclera icterus. Extraocular movements grossly intact. Moist buccal mucosa. Head is atraumatic, normocephalic. No nasal drainage. ABDOMEN: Obese. Patient has bruising around the umbilicus. Abdomen is firm her on the left side. Patient has diffuse tenderness but more tenderness along the left of the abdomen NEUROLOGIC: Alert and oriented. Cranial nerves II through XII grossly intact. LABORATORY DATA: WBC 14.4 Hgb 9.1 platelets 4:30 Sodium 127 potassium 4.2 creatinine 0.81 Lactic acid 1.4 Total bilirubin 1.9 AST 40 ALT 13 alk phos 200 lipase 83 IMAGING: Computed tomography scan of abdomen was completed that did show a left rectus sheath hematoma measuring 16.6 x 12.5 x 7.3 cm with intraperitoneal extension. No obvious evidence of active extravasation. Partial visualization of right lower lobe consolidation. Consider further evaluation with chest x-ray. Right ovarian 2.7 cm cystic lesion. Further evaluation with outpatient pelvic ultrasound is recommended. ASSESSMENT: 1. Left rectus sheath hematoma 2. Coagulopathy, INR greater than 10 3. History of atrial fibrillation and CVA on Coumadin PLAN: -Place Coumadin on hold -Agree with vitamin K and Kcentra -Repeat INR and hemoglobin in a.m. -Continue IV fluids -Continue supportive care -Continue to monitor closely Physician Crutch Maker note has been reviewed by physician. Signing provider agrees with the documented findings, assessment, and plan of care. 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 Left shoulder fra cture 2016, 2018.bakers cyst behind rt knee. History of Any Multi-Drug Resistant Organisms: None Reported Past Surgical History: Appendectomy, Cardiac Valve Replacement, Cholecystectomy, Heart Catheterization, Tubal Ligation Additional Past Surgical History / Comment(s): COLONOSCOPY, STATED HAD A "MITRAL VALVE REPLACEMENT" Past Anesthesia/Blood Transfusion Reactions: No Reported Reaction Past Psychological History: Depression Smoking Status: Never smoker Past Alcohol Use History: None Reported Past Drug Use History: None Reported - Past Family History Father Family Medical History: Cancer Additional Family Medical History / Comment(s): BRAIN AND LUNG CANCER Mother Family Medical History: Coronary Artery Disease (CAD), Dementia Additional Family Medical History / Comment(s): PT COULDN'T REMEMBER WHAT MOM FROM Medications and Allergies Home Medications Medication Instructions Recorded Confirmed Type Atorvastatin Calcium [Lipitor] 40 mg PO HS 09/06/15 03/03/21 History Gabapentin 600 mg PO BID@0900,1700 09/13/15 03/03/21 History Spironolactone [Aldactone] 25 mg PO DAILY 11/23/16 03/03/21 History levETIRAcetam 1,000 mg PO BID@0900,2100 11/23/16 03/03/21 History Acetaminophen Tab [Tylenol] 650 mg PO Q6H PRN 10/01/17 03/03/21 History Magnesium Hydroxide [Milk of 2,400 mg PO Q72H PRN 10/01/17 03/03/21 History Magnesia] Sennosides [Senna] 17.2 mg PO HS 10/01/17 03/03/21 History bisacodyL [Dulcolax] 10 mg RECTAL Q72H PRN 10/01/17 03/03/21 History Meclizine [Antivert] 12.5 mg PO Q8H PRN 02/20/18 03/03/21 History Baclofen 5 mg PO HS 03/03/21 03/03/21 History Melatonin 3 mg PO HS PRN 03/03/21 03/03/21 History Metoprolol Tartrate [Lopressor] 12.5 mg PO BID 03/03/21 03/03/21 History Sertraline [Zoloft] 50 mg PO DAILY 03/03/21 03/03/21 History polyethylene glycoL 3350 [Miralax] 17 gm PO DAILY 03/03/21 03/03/21 History Bumetanide [BUMEX] 2 mg PO DAILY #0 03/05/21 03/03/21 Rx Potassium Chloride ER [K-Dur 20] 20 meq PO BID #0 03/05/21 03/03/21 Rx Warfarin [Coumadin] 2 mg PO DAILY #0 03/05/21 03/03/21 Rx traMADol HCl [Ultram] 50 mg PO BID PRN #10 tab 03/05/21 Rx Allergies Allergy/AdvReac Type Severity Reaction Status Date / Time codeine Allergy Chest Pain Verified 06/20/22 11:31 lorazepam [From Ativan] AdvReac GIVES THE Verified 06/20/22 11:31 OPPOSITE EFFECT Surgical - Exam Vital Signs Temp Pulse Resp BP Pulse Ox 98.1 F 103 H 18 102/49 98 06/20/22 11:22 06/20/22 11:22 06/20/22 11:22 06/20/22 11:22 06/20/22 11:22 Results - Labs 06/20/22 11:53 06/20/22 11:53 Abnormal Lab Results - Last 24 Hours (Table) 06/20/22 06/20/22 06/20/22 Range/Units 11:53 11:53 13:25 WBC 14.4 H (3.8-10.6) k/uL RBC 3.02 L (3.80-5.40) m/uL Hgb 9.1 L (11.4-16.0) gm/dL Hct 29.4 L (34.0-46.0) % MCHC 30.8 L (31.0-37.0) g/dL Neutrophils # 11.5 H (1.3-7.7) k/uL Monocytes # 1.1 H (0-1.0) k/uL PT >130.0 H (9.0-12.0) sec INR >10.0 H* (<1.2) APTT 109.6 H* (22.0-30.0) sec Sodium 127 L (137-145) mmol/L Chloride 89 L (98-107) mmol/L Carbon Dioxide 36 H (22-30) mmol/L BUN 19 H (7-17) mg/dL Glucose 121 H (74-99) mg/dL Calcium 7.7 L (8.4-10.2) mg/dL Total Bilirubin 1.9 H (0.2-1.3) mg/dL AST 40 H (14-36) U/L Alkaline Phosphatase 200 H (38-126) U/L Total Protein 6.0 L (6.3-8.2) g/dL Albumin 2.8 L (3.5-5.0) g/dL Diabetes panel 06/20/22 Range/Units 11:53 Sodium 127 L (137-145) mmol/L Potassium 4.2 (3.5-5.1) mmol/L Chloride 89 L (98-107) mmol/L Carbon Dioxide 36 H (22-30) mmol/L BUN 19 H (7-17) mg/dL Creatinine 0.81 (0.52-1.04) mg/dL Glucose 121 H (74-99) mg/dL Calcium 7.7 L (8.4-10.2) mg/dL AST 40 H (14-36) U/L ALT 13 (4-34) U/L Alkaline Phosphatase 200 H (38-126) U/L Total Protein 6.0 L (6.3-8.2) g/dL Albumin 2.8 L (3.5-5.0) g/dL Calcium panel 06/20/22 Range/Units 11:53 Calcium 7.7 L (8.4-10.2) mg/dL Albumin 2.8 L (3.5-5.0) g/dL Pituitary panel 06/20/22 Range/Units 11:53 Sodium 127 L (137-145) mmol/L Potassium 4.2 (3.5-5.1) mmol/L Chloride 89 L (98-107) mmol/L Carbon Dioxide 36 H (22-30) mmol/L BUN 19 H (7-17) mg/dL Creatinine 0.81 (0.52-1.04) mg/dL Glucose 121 H (74-99) mg/dL Calcium 7.7 L (8.4-10.2) mg/dL Adrenal panel 06/20/22 Range/Units 11:53 Sodium 127 L (137-145) mmol/L Potassium 4.2 (3.5-5.1) mmol/L Chloride 89 L (98-107) mmol/L Carbon Dioxide 36 H (22-30) mmol/L BUN 19 H (7-17) mg/dL Creatinine 0.81 (0.52-1.04) mg/dL Glucose 121 H (74-99) mg/dL Calcium 7.7 L (8.4-10.2) mg/dL Total Bilirubin 1.9 H (0.2-1.3) mg/dL AST 40 H (14-36) U/L ALT 13 (4-34) U/L Alkaline Phosphatase 200 H (38-126) U/L Total Protein 6.0 L (6.3-8.2) g/dL Albumin 2.8 L (3.5-5.0) g/dL
[2022-06-20 16:35] LABS: Basophils % (A) 0 %; Eosinophils # (A) 0.3 k/uL (0-0.7); Eosinophils % (A) 2 %; HCT 28.7 % (34.0-46.0); HGB 8.8 gm/dL (11.4-16.0); Hypochromasia Slight; Lymphocytes # (A) 1.1 k/uL (1.0-4.8); Lymphocytes % (A) 8 %; MCH 29.9 pg (25.0-35.0); MCHC 30.6 g/dL (31.0-37.0); MCV 97.7 fL (80.0-100.0); Mean Platelet Volume 7.2; Monocytes # (A) 0.8 k/uL (0-1.0); Monocytes % (A) 6 %; Neutrophils # (A) 10.6 k/uL (1.3-7.7); Neutrophils % (A) 82 %; Platelet Count 467 k/uL (150-450); RBC 2.94 m/uL (3.80-5.40); RDW 14.7 % (11.5-15.5)
[2022-06-20] MEDS ORDERED: ACETAMINOPHEN TAB 325 MG TAB PO PRN (16:57)
--- NOTE | 2022-06-20 17:02 | P.HPIM ---
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 Patient reports lower abdominal pain that has been ongoing for the past month. Pain is cramping in nature. She also reports constipation. She is unable to describe her stool. She denies any rectal bleeding. She denies any dysuria. She denies any nausea or vomiting. She denies any fever or chills. Patient denies any headache, lower extremity edema, cough, chest pain, shortness of breath, palpitations. No changes in appetite or weight. She denies any dizziness, numbness/weakness/ti ngling of the extremities. In the ED, she was noted to be tachycardic with heart rate in the 90s with BP of 94/54 on 2 L nasal cannula. CBC showed leukocytosis of 14.4 and hemoglobin 9.1. Coagulation panel showed INR greater than 10, PT greater than 1:30 and APTT of 109.6. CMP showed sodium of 127, chloride of 89, bicarb of 36, BUN of 19, glucose of 121, calcium is 7.7, total bilirubin of 1.9, AST of 40, alkaline phosphatase of 200, albumin of 2.8. Amylase and lipase was negative. CT AP showed left rectus sheath hematoma measuring 16.6 x 12.5 x 7.3 cm with intraperitoneal extension, right ovarian 2.7 cm cystic lesion, possible right lower lobe consolidation. Chest x-ray was negative. Patient is admitted for further workup and management of the above findings with surgery consultation. Pertinent positives and negatives as discussed in HPI, a complete review of systems was performed and all other systems are negative. General: non toxic, no distress, appears at stated age, obese Derm: warm, dry Head: atraumatic, normocephalic, symmetric Eyes: EOMI, no lid lag, anicteric sclera Mouth: no lip lesion, mucus membranes moist Cardiovascular: Irregularly regular, no murmur Lungs: Decreased breath sounds bilateral, no rhonchi, no rales , no accessory muscle use Abdominal: soft, nontender to palpation, no guarding, no appreciable organomegaly Ext: no gross muscle atrophy, no edema, no contractures Neuro: CN II-XI grossly intact, facial droop noted, contractured left upper ex tremity, left lower extremity foot drop with 0 out of 5 strength. 5 out of 5 strength in the right upper and lower extremities. 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 Patient has an acute diagnosis of left rectus sheath hematoma measuring 16.6 x 12.5 x 7.3 cm with intraperitoneal extension in the setting of supratherapeutic INR from Coumadin that poses a threat to life or bodily function. Kcentra and Vitamin K 10 mg IV has been ordered in the ED. Hold Coumadin and monitor daily INR. General surgery has been consulted for findings on CTAP. CBC will be repeated tomorrow morning. Patient will be placed nothing by mouth for possible surgical intervention. Telemetry monitoring will be ordered. Unknown etiology for leukocytosis. No obvious source of infection. Continue to monitor. Hyponatremia, metabolic alkalosis and elevated BUN related to dehydration. Hold Bumex and Aldactone. Repeat BMP tomorrow morning. Obtain liver gallbladder ultrasound for findings of transaminitis. Patient names her daughter decision maker if she can't make decisions for herself. Patient would like to be full code. SCDs for DVT prophylaxis. I have reviewed the following health and safety consultant notes: None. I have reviewed the results of the following tests: CBC showed leukocytosis of 14.4 and hemoglobin 9.1. Coagulation panel showed INR greater than 10, PT greater than 1:30 and APTT of 109.6. CMP showed sodium of 127, chloride of 89, bicarb of 36, BUN of 19, glucose of 121, calcium is 7.7, total bilirubin of 1.9, AST of 40, alkaline phosphatase of 200, albumin of 2.8. Amylase and lipase was negative. CT AP showed left rectus sheath hematoma measuring 16.6 x 12.5 x 7.3 cm with intraperitoneal extension, right ovarian 2.7 cm cystic lesion, possible right lower lobe consolidation. I have ordered the following tests: CBC is ordered for tomorrow morning. I have discussed the care of this patient with the following independent historian: None. I have independently interpreted the following test below: Chest x-ray was negative. I have discussed the management of this patient with the following physician: The case was discussed with the ED physician with decision made to admit the patient for left rectus sheath hematoma with general surgery consultation. 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 Left shoulder fracture 2016, 2018.bakers cyst behind rt knee. History of Any Multi-Drug Resistant Organisms: None Reported Past Surgical History: Appendectomy, Cardiac Valve Replacement, Cholecystectomy, Heart Catheterization, Tubal Ligation Additional Past Surgical History / Comment(s): COLONOSCOPY, STATED HAD A "MITRAL VALVE REPLACEMENT" Past Anesthesia/Blood Transfusion Reactions: No Reported Reaction Past Psychological History: Depression Smoking Status: Never smoker Past Alcohol Use History: None Reported Past Drug Use History: None Reported - Past Family History Father Family Medical History: Cancer Additional Family Medical History / Comment(s): BRAIN AND LUNG CANCER Mother Family Medical History: Coronary Artery Disease (CAD), Dementia Additional Family Medical History / Comment(s): PT COULDN'T REMEMBER WHAT MOM FROM Medications and Allergies Home Medications Medication Instructions Recorded Confirmed Type Atorvastatin Calcium [Lipitor] 40 mg PO HS 09/06/15 06/20/22 History Gabapentin 600 mg PO BID@0900,1700 09/13/15 06/20/22 History Spironolactone [Aldactone] 25 mg PO DAILY 11/23/16 06/20/22 History levETIRAcetam 1,000 mg PO BID 11/23/16 06/20/22 History Acetaminophen Tab [Tylenol] 650 mg PO Q6H PRN 10/01/17 06/20/22 History Magnesium Hydroxide [Milk of 2,400 mg PO Q72H PRN 10/01/17 06/20/22 History Magnesia] Sennosides [Senna] 17.2 mg PO HS 10/01/17 06/20/22 History Baclofen 5 mg PO BID 03/03/21 06/20/22 History Metoprolol Tartrate [Lopressor] 12.5 mg PO BID 03/03/21 06/20/22 History Sertraline [Zoloft] 50 mg PO DAILY 03/03/21 06/20/22 History Potassium Chloride ER [K-Dur 20] 20 meq PO BID #0 03/05/21 06/20/22 Rx Bumetanide [BUMEX] 2 mg PO BID 06/20/22 06/20/22 History Docusate Sodium [Dok] 100 mg PO BID 06/20/22 06/20/22 History Hydrocortisone Cream 1 applic TOPICAL HS 06/20/22 06/20/22 History [Hydrocortisone 1% Cream] Lactulose 20 gm PO BID 06/20/22 06/20/22 History Midodrine HCl [ProAmantine] 2.5 mg PO TID@0700,1300,1900 06/20/22 06/20/22 History Morphine Sulfate ER [Ms Contin] 30 mg PO HS 06/20/22 06/20/22 History Na Phos,M-B/Na Phos,Di-Ba [Fleet 133 ml RECTAL DAILY PRN 06/20/22 06/20/22 History Adult] Warfarin [Coumadin] 2.5 mg PO HS 06/20/22 06/20/22 History traMADol HCl [Ultram] 50 mg PO BID PRN 06/20/22 06/20/22 History Allergies Allergy/AdvReac Type Severity Reaction Status Date / Time codeine Allergy Chest Pain Verified 06/20/22 15:43 lorazepam [From Ativan] AdvReac GIVES THE Verified 06/20/22 15:43 OPPOSITE EFFECT Physical Exam Vitals: Vital Signs Temp Pulse Resp BP Pulse Ox 06/20/22 16:59 98.2 F 93 21 95/58 99 06/20/22 16:08 96 17 107/59 100 06/20/22 15:47 94 17 110/63 98 06/20/22 14:40 97 19 107/71 99 06/20/22 13:40 98.5 F 92 18 113/65 96 06/20/22 12:12 100 18 94/55 97 06/20/22 11:55 110 H 18 97/67 98 06/20/22 11:22 98.1 F 103 H 18 102/49 98 Intake and Output 06/20/22 06/20/22 06/20/22 06:59 14:59 22:59 Other: Weight 117.934 kg Results CBC & Chem 7: 06/20/22 16:25 06/20/22 11:53 Labs: Abnormal Lab Results - Last 24 Hours (Table) 06/20/22 06/20/22 06/20/22 Range/Units 11:53 11:53 13:25 WBC 14.4 H (3.8-10.6) k/uL RBC 3.02 L (3.80-5.40) m/uL Hgb 9.1 L (11.4-16.0) gm/dL Hct 29.4 L (34.0-46.0) % MCHC 30.8 L (31.0-37.0) g/dL Plt Count (150-450) k/uL Neutrophils # 11.5 H (1.3-7.7) k/uL Monocytes # 1.1 H (0-1.0) k/uL PT >130.0 H (9.0-12.0) sec INR >10.0 H* (<1.2) APTT 109.6 H* (22.0-30.0) sec Sodium 127 L (137-145) mmol/L Chloride 89 L (98-107) mmol/L Carbon Dioxide 36 H (22-30) mmol/L BUN 19 H (7-17) mg/dL Glucose 121 H (74-99) mg/dL Calcium 7.7 L (8.4-10.2) mg/dL Total Bilirubin 1.9 H (0.2-1.3) mg/dL AST 40 H (14-36) U/L Alkaline Phosphatase 200 H (38-126) U/L Total Protein 6.0 L (6.3-8.2) g/dL Albumin 2.8 L (3.5-5.0) g/dL 06/20/22 Range/Units 16:25 WBC 13.0 H (3.8-10.6) k/uL RBC 2.94 L (3.80-5.40) m/uL Hgb 8.8 L (11.4-16.0) gm/dL Hct 28.7 L (34.0-46.0) % MCHC 30.6 L (31.0-37.0) g/dL Plt Count 467 H (150-450) k/uL Neutrophils # 10.6 H (1.3-7.7) k/uL Monocytes # (0-1.0) k/uL PT (9.0-12.0) sec INR (<1.2) APTT (22.0-30.0) sec Sodium (137-145) mmol/L Chloride (98-107) mmol/L Carbon Dioxide (22-30) mmol/L BUN (7-17) mg/dL Glucose (74-99) mg/dL Calcium (8.4-10.2) mg/dL Total Bilirubin (0.2-1.3) mg/dL AST (14-36) U/L Alkaline Phosphatase (38-126) U/L Total Protein (6.3-8.2) g/dL Albumin (3.5-5.0) g/dL
[2022-06-20] MEDS: GABAPENTIN 300 MG CAP PO SCH (17:32)
[2022-06-20] MEDS: MIDODRINE 5 MG TAB PO SCH (18:08)
[2022-06-20 18:10] LABS: Appearance,Urine Clear (Clear); Bacteria,Urine Rare /hpf; Bilirubin,Urine Negative (Negative); Blood,Urine Small (Negative); Color,Urine Light Yellow; Glucose,Urine (UA) Negative (Negative); Ketones,Urine Negative (Negative); Leukocyte Esterase,Urine Negative (Negative); Nitrite,Urine Negative (Negative); Protein,Urine Negative (Negative); Specific Gravity,Urine 1.026 (1.001-1.035); Squamous Epithelial Cell,Urine <1 /hpf (0-4); Urobilinogen,Urine <2.0 mg/dL (<2.0); WBC,Urine 2 /hpf (0-5)
--- NOTE | 2022-06-20 18:15 | US ---
EXAMINATION TYPE: US liver DATE OF EXAM: 06/20/2022 COMPARISON: CT: Today CLINICAL INDICATION: Female, 72 years old with history of Transaminits; Transaminitis. Cholecystectom y TECHNIQUE: Multiple sonographic images of the right upper quadrant are obtained. Severely limited due to pt being morbidly obese FINDINGS: EXAM MEASUREMENTS: Liver Length: 14.9 cm Gallbladder Wall: Surgically absent CBD: 0.53 cm Right Kidney: 10.3 x 5.3 x 5.0 cm WAREHOUSE DIRECTOR NOTES: Pancreas: Obscured by bowel gas Liver: Severely limited. Heterogeneous Gallbladder: Surgically absent Evidence for sonographic Jimenez's sign: No CBD: Not well visualized. Appears wnl Right Kidney: Not well visualized appears wnl IMPRESSION: Limited evaluation of the heterogenous appearing liver. Abdomen ultrasound limited due to body habitu s.
[2022-06-20 19:14] LABS: INR 1.5 (<1.2); Partial Thromboplastin Time 31.3 sec (22.0-30.0); Prothrombin Time 15.2 sec (9.0-12.0)
[2022-06-20] MEDS: ATORVASTATIN 40 MG TAB PO SCH (20:02)
[2022-06-20] MEDS: levETIRAcetam 500 MG TAB PO SCH (20:02)
[2022-06-20] MEDS: MORPHINE SULFATE ER 30 MG TABLET PO SCH (20:02)
[2022-06-20] MEDS: BACLOFEN 10 MG TAB PO SCH (20:02)
[2022-06-21 00:04] LABS: Basophils # (A) 0.1 k/uL (0-0.2); Basophils % (A) 0 %; Eosinophils # (A) 0.4 k/uL (0-0.7); Eosinophils % (A) 3 %; HCT 30.2 % (34.0-46.0); HGB 9.2 gm/dL (11.4-16.0); Hypochromasia Moderate; Lymphocytes # (A) 1.4 k/uL (1.0-4.8); Lymphocytes % (A) 10 %; MCH 30.4 pg (25.0-35.0); MCHC 30.6 g/dL (31.0-37.0); MCV 99.5 fL (80.0-100.0); Macrocytosis Slight; Mean Platelet Volume 7.1; Monocytes # (A) 0.9 k/uL (0-1.0); Monocytes % (A) 6 %; Neutrophils # (A) 11.4 k/uL (1.3-7.7); Neutrophils % (A) 79 %; Platelet Count 501 k/uL (150-450); RBC 3.03 m/uL (3.80-5.40); RDW 14.8 % (11.5-15.5); WBC 14.3 k/uL (3.8-10.6)
[2022-06-21] MEDS: METOPROLOL TARTRATE 25 MG TAB PO SCH ×2 (00:57→07:43)
[2022-06-21] MEDS ORDERED: SODIUM CHLORIDE 0.9% 500 ML 500 ML IV ONE ×2 (04:48→06:42)
[2022-06-21] MEDS: MIDODRINE 5 MG TAB PO SCH ×3 (06:05→18:59)
[2022-06-21] MEDS ORDERED: SODIUM CHLORIDE 0.9% 1,000 ML IV ONE ×2 (06:46→08:11)
[2022-06-21 07:06] LABS: Basophils % (A) 0 %; Eosinophils # (A) 0.5 k/uL (0-0.7); Eosinophils % (A) 4 %; HCT 26.5 % (34.0-46.0); HGB 8.2 gm/dL (11.4-16.0); Hypochromasia Moderate; Lymphocytes % (A) 8 %; MCH 30.8 pg (25.0-35.0); MCHC 30.8 g/dL (31.0-37.0); MCV 99.8 fL (80.0-100.0); Macrocytosis Slight; Monocytes # (A) 0.8 k/uL (0-1.0); Monocytes % (A) 6 %; Neutrophils # (A) 10.4 k/uL (1.3-7.7); Neutrophils % (A) 80 %; Platelet Count 418 k/uL (150-450); RBC 2.66 m/uL (3.80-5.40); RDW 14.8 % (11.5-15.5)
[2022-06-21 07:22] LABS: ALT 11 U/L (4-34); African American GFR (CKD) >90 (>60 ml/min/1.73 sqM); Albumin 2.6 g/dL (3.5-5.0); Anion Gap 4 mmol/L; Blood Urea Nitrogen 18 mg/dL (7-17); Calcium 7.5 mg/dL (8.4-10.2); Carbon Dioxide 31 mmol/L (22-30); Chloride 92 mmol/L (98-107); Glucose 118 mg/dL (74-99); Non-African American GFR(CKD) 89 (>60 ml/min/1.73 sqM); Sodium 127 mmol/L (137-145); Total Bilirubin 2.1 mg/dL (0.2-1.3); Total Protein 5.6 g/dL (6.3-8.2)
[2022-06-21 07:26] LABS: INR 1.1 (<1.2); Prothrombin Time 11.2 sec (9.0-12.0)
[2022-06-21 07:33] LABS: AST 39 U/L (14-36); Alkaline Phosphatase 172 U/L (38-126); Potassium 4.4 mmol/L (3.5-5.1)
[2022-06-21] MEDS: BACLOFEN 10 MG TAB PO SCH ×2 (09:54→20:21)
[2022-06-21] MEDS: levETIRAcetam 500 MG TAB PO SCH ×2 (09:54→20:22)
[2022-06-21] MEDS: SERTRALINE 50 MG TAB PO SCH (09:54)
[2022-06-21] MEDS: GABAPENTIN 300 MG CAP PO SCH ×2 (09:55→17:16)
--- NOTE | 2022-06-21 11:47 | CA ---
Transthoracic Echo Report Name: Asha Duncan Age: 72 Gender: F : 1950 Exam Date: 06/21/2022 10:01 Exam Location: [facility] Ht (in): 67 Wt (lb): 260 Ordering Physician: Anabel Garcia MD Attending/Referring Phys: [place] Radha Bal RDCS Procedure CPT: Indications: Hypotension Cardiac Hx: Technical Quality: Technically difficult study Contrast 1: Total Dose (mL): Contrast 2: Total Dose (mL): MEASUREMENTS (Male / Female) Normal Values 2D ECHO LV Diastolic Diameter PLAX 6.0 cm 4.2 - 5.9 / 3.9 - 5.3 cm LV Systolic Diameter PLAX 4.8 cm IVS Diastolic Thickness 1.1 cm 0.6 - 1.0 / 0.6 - 0.9 cm LVPW Diastolic Thickness 1.1 cm 0.6 - 1.0 / 0.6 - 0.9 cm LV Relative Wall Thickness 0.4 RV Internal Dim ED PLAX 4.0 cm LVOT Diameter 2.2 cm LA Systolic Diameter LX 5.4 cm 3.0 - 4.0 / 2.7 - 3.8 cm M-MODE Aortic Root Diameter MM 3.2 cm AV Cusp Separation MM 1.9 cm DOPPLER AV Peak Velocity 154.4 cm/s AV Peak Gradient 9.5 mmHg AV Mean Velocity 132.9 cm/s AV Mean Gradient 8.2 mmHg AV Velocity Time Integral 42.9 cm LVOT Peak Velocity 119.1 cm/s LVOT Peak Gradient 5.7 mmHg AV Area Cont Eq pk 2.9 cm??? MV Peak Velocity 202.6 cm/s MV Peak Gradient 16.4 mmHg MV Mean Velocity 89.8 cm/s MV Mean Gradient 4.3 mmHg MV Velocity Time Integral 47.6 cm MV Area PHT 4.2 cm??? MV Deceleration Time 187.9 ms TR Peak Velocity 253.6 cm/s TR Peak Gradient 25.7 mmHg Right Ventricular Systolic Press 29.8 mmHg FINDINGS Left Ventricle Left ventricular ejection fraction is estimated at 45-50 %. Mildly increased septal wall thickness. Mildly increased posterior wall thickness. Moderately increased left ventricular diastolic diameter. Right Ventricle Moderate right ventricular dilatation. Right ventricular systolic pressure within normal limits. Right ventricular systolic pressure estimated at 30 mm hg. Right Atrium Severe right atrial dilatation. Left Atrium Severely increased left atrial diameter. Mildly increased left atrial area. Mitral Valve Normal functioning mechanical MV with max gradient of 16mmHg and mean gradient of 4 mmHg. Mild mitral regurgitation. Aortic Valve Trileaflet aortic valve. No aortic valve stenosis or regurgitation. Tricuspid Valve TV repair. Severe tricuspid regurgitation. Pulmonic Valve Structurally normal pulmonic valve. Trace to mild pulmonic regurgitation. Pericardium Normal pericardium. No pericardial effusion. Aorta Normal size aortic root and proximal ascending aorta. CONCLUSIONS Left ventricular ejection fraction 45-50% Mildly increased left ventricular wall thickness Severe left atrial and right atrial dilation Appears to be normally functioning mechanical mitral valve. Unable to fully evaluate degree of mitral regurgitation secondary to shadowing from mechanical valve. If clinical concern of mitral regurgitation may consider KANNAN. Severe tricuspid regurgitation Previewed by: Dr. Cesar Escamilla DO (Electronically Signed) Final Date: 21 Jun 2022 11:46
--- NOTE | 2022-06-21 13:47 | P.PN ---
Subjective Progress Note Date: 06/21/22 CHIEF COMPLAINT: Rectus sheath hematoma HISTORY OF PRESENT ILLNESS: Patient lying in bed comfortably. She does report some tenderness to left abdomen. The pain is controlled. She has been hypotensive has required 3 L of IV fluids. Blood pressure had been at 73/46 and is now up to 103/57. Hemoglobin has dropped from 9.2-8.2 INR is normalized at 1.1 after receiving Kcentra and vitamin K white count is 13. She's afebrile. She had an echo completed this morning. PHYSICAL EXAM: VITAL SIGNS: Reviewed. GENERAL: Well-developed in no acute distress. HEENT: No sclera icterus. Extraocular movements grossly intact. Moist buccal mucosa. Head is atraumatic, normocephalic. ABDOMEN: Left-sided abdomen is firm with mild tenderness. The umbilicus has bruising noted. NEUROLOGIC: Alert and oriented. Cranial nerves II through XII grossly intact. ASSESSMENT: 1. Left rectus sheath hematoma 2. Coagulopathy, INR greater than 10 3. History of atrial fibrillation and CVA on Coumadin PLAN: -Continue to hold Coumadin -Continue IV fluids -Continue supportive care -Continue to monitor hemoglobin Physician Fountain Dispenser note has been reviewed by physician. Signing provider agrees with the documented findings, assessment, and plan of care. Objective - Vital Signs Vital signs: Vital Signs Temp 97.9 F 06/21/22 07:41 Pulse 72 06/21/22 11:14 Resp 15 06/21/22 11:14 BP 103/57 06/21/22 11:14 Pulse Ox 100 06/21/22 11:14 FiO2 Intake & Output 06/20/22 06/21/22 06/21/22 18:59 06:59 18:59 Intake Total 600 240 Output Total 0 Balance 600 240 Weight 117.934 kg Intake: Oral 600 240 Output: Urine 0 Other: Voiding Method Incontinent Incontinent External Catheter External Catheter # Voids 1 - Labs CBC & Chem 7: 06/21/22 06:57 06/21/22 06:57 Labs: Abnormal Lab Results - Last 24 Hours (Table) 06/20/22 06/20/22 06/20/22 Range/Units 13:25 16:25 16:55 WBC 13.0 H (3.8-10.6) k/uL RBC 2.94 L (3.80-5.40) m/uL Hgb 8.8 L (11.4-16.0) gm/dL Hct 28.7 L (34.0-46.0) % MCHC 30.6 L (31.0-37.0) g/dL Plt Count 467 H (150-450) k/uL Neutrophils # 10.6 H (1.3-7.7) k/uL PT >130.0 H (9.0-12.0) sec INR >10.0 H* (<1.2) APTT 109.6 H* (22.0-30.0) sec Sodium (137-145) mmol/L Chloride (98-107) mmol/L Carbon Dioxide (22-30) mmol/L BUN (7-17) mg/dL Glucose (74-99) mg/dL Calcium (8.4-10.2) mg/dL Total Bilirubin (0.2-1.3) mg/dL AST (14-36) U/L Alkaline Phosphatase (38-126) U/L Total Protein (6.3-8.2) g/dL Albumin (3.5-5.0) g/dL Urine Blood Small H (Negative) Urine Bacteria Rare H (None) /hpf 06/20/22 06/20/22 06/21/22 Range/Units 18:19 23:31 06:57 WBC 14.3 H (3.8-10.6) k/uL RBC 3.03 L (3.80-5.40) m/uL Hgb 9.2 L (11.4-16.0) gm/dL Hct 30.2 L (34.0-46.0) % MCHC 30.6 L (31.0-37.0) g/dL Plt Count 501 H (150-450) k/uL Neutrophils # 11.4 H (1.3-7.7) k/uL PT 15.2 H (9.0-12.0) sec INR 1.5 H (<1.2) APTT 31.3 H (22.0-30.0) sec Sodium 127 L (137-145) mmol/L Chloride 92 L (98-107) mmol/L Carbon Dioxide 31 H (22-30) mmol/L BUN 18 H (7-17) mg/dL Glucose 118 H (74-99) mg/dL Calcium 7.5 L (8.4-10.2) mg/dL Total Bilirubin 2.1 H (0.2-1.3) mg/dL AST 39 H (14-36) U/L Alkaline Phosphatase 172 H (38-126) U/L Total Protein 5.6 L (6.3-8.2) g/dL Albumin 2.6 L (3.5-5.0) g/dL Urine Blood (Negative) Urine Bacteria (None) /hpf 06/21/22 Range/Units 06:57 WBC 13.0 H (3.8-10.6) k/uL RBC 2.66 L (3.80-5.40) m/uL Hgb 8.2 L (11.4-16.0) gm/dL Hct 26.5 L (34.0-46.0) % MCHC 30.8 L (31.0-37.0) g/dL Plt Count (150-450) k/uL Neutrophils # 10.4 H (1.3-7.7) k/uL PT (9.0-12.0) sec INR (<1.2) APTT (22.0-30.0) sec Sodium (137-145) mmol/L Chloride (98-107) mmol/L Carbon Dioxide (22-30) mmol/L BUN (7-17) mg/dL Glucose (74-99) mg/dL Calcium (8.4-10.2) mg/dL Total Bilirubin (0.2-1.3) mg/dL AST (14-36) U/L Alkaline Phosphatase (38-126) U/L Total Protein (6.3-8.2) g/dL Albumin (3.5-5.0) g/dL Urine Blood (Negative) Urine Bacteria (None) /hpf
--- NOTE | 2022-06-21 15:49 | P.PN ---
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 Patient reports lower abdominal pain that has been ongoing for the past month. Pain is cramping in nature. She also reports constipation. She is unable to describe her stool. She denies any rectal bleeding. She denies any dysuria. She denies any nausea or vomiting. She denies any fever or chills. Patient denies any headache, lower extremity edema, cough, chest pain, shortness of breath, palpitations. No changes in appetite or weight. She denies any dizziness, numbness/weakness/tingling of the extremities. In the ED, she was noted to be tachycardic with heart rate in the 90s with BP of 94/54 on 2 L nasal cannula. CBC showed leukocytosis of 14.4 and hemoglobin 9.1. Coagulation panel showed INR greater than 10, PT greater than 1:30 and APTT of 109.6. CMP showed sodium of 127, chloride of 89, bicarb of 36, BUN of 19, glucose of 121, calcium is 7.7, total bilirubin of 1.9, AST of 40, alkaline phosphatase of 200, albumin of 2.8. Amylase and lipase was negative. CT AP showed left rectus sheath hematoma measuring 16.6 x 12.5 x 7.3 cm with intraperitoneal extension, right ovarian 2.7 cm cystic lesion, possible right lower lobe consolidation. Chest x-ray was negative. Patient is admitted for further workup and management of the above findings with surgery consultation. 06/21 Patient was seen and examined. Nursing reports hypotension, asymtomatic with BP in the 70s over 40s this morning. Patient denies any dizziness, chest pain, SOB or palpitations. General: non toxic, no distress, appears at stated age, obese Derm: warm, dry Head: atraumatic, normocephalic, symmetric Eyes: EOMI, no lid lag, anicteric sclera Mouth: no lip lesion, mucus membranes moist Cardiovascular: Irregularly regular, no murmur Lungs: Decreased breath sounds bilateral, no rhonchi, no rales , no accessory muscle use Abdominal: soft, nontender to palpation, no guarding, no appreciable organo megaly Ext: no gross muscle atrophy, no edema, no contractures Neuro: CN II-XI grossly intact, facial droop noted, contractured left upper extremity, left lower extremity foot drop with 0 out of 5 strength. 5 out of 5 strength in the right upper and lower extremities. 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 Patient has an acute diagnosis of left rectus sheath hematoma measuring 16.6 x 12.5 x 7.3 cm with intraperitoneal extension in the setting of supratherapeutic INR from Coumadin that poses a threat to life or bodily function. Kcentra and Vitamin K 10 mg IV has been ordered in the ED. Hold Coumadin. INR has improved from > 10 to 1.1. General surgery has been consulted for findings on CTAP. CBC will be repeated tomorrow morning. Telemetry monitoring will be ordered. Her hypotension has resolved with 2L of NS bolus since this morning. Unknown etiology for leukocytosis. No obvious source of infection. Continue to monitor. Hyponatremia, metabolic alkalosis and elevated BUN related to dehydration. Hold Bumex and Aldactone. Repeat BMP tomorrow morning. Liver gallbladder ultrasound limited due to morbid obesity. Patient names her daughter decision maker if she can't make decisions for herself. Patient would like to be full code. SCDs for DVT prophylaxis. I have reviewed the following groundwater consultant notes: Surgery note 06/21, continue to hold Coumadin and monitor. I have reviewed the results of the following tests: Liver gallbladder ultrasound limited due to morbid obesity. CBC shows leukocytosis of 13 and hemoglobin of 8.2. INR is 1.1. CMP shows sodium 127, chloride of 92, bicarb of 31, BUN of 18, glucose 118, calcium is 7.5, total bilirubin of 2.1, AST of 39, alkaline phosphatase of 172 and albumin of 2.6. I have ordered the following tests: CBC and CMP is ordered for tomorrow morning. Echocardiogram and Troponin was ordered due to hypotension. I have discussed the care of this patient with the following independent historian: None. I have independently interpreted the following test below: None. I have discussed the management of this patient with the following physician: The case was discussed with Dr. Lux and decision made to bolus another L. Plans to re-consult if her clinical condition worsens as her BP has improved with the additional NS bolus. Objective - Vital Signs Vital signs: Vital Signs Temp 97.9 F 06/21/22 07:41 Pulse 72 06/21/22 11:14 Resp 15 06/21/22 11:14 BP 103/57 06/21/22 11:14 Pulse Ox 100 06/21/22 11:14 FiO2 Intake & Output 06/20/22 06/21/22 06/21/22 18:59 06:59 18:59 Intake Total 600 240 Output Total 200 Balance 600 40 Weight 117.934 kg Intake: Oral 600 240 Output: Urine 200 Other: Voiding Method Incontinent Incontinent External Catheter External Catheter # Voids 1 - Labs CBC & Chem 7: 06/21/22 06:57 06/21/22 06:57 Labs: Abnormal Lab Results - Last 24 Hours (Table) 06/20/22 06/20/22 06/20/22 Range/Units 16:25 16:55 18:19 WBC 13.0 H (3.8-10.6) k/uL RBC 2.94 L (3.80-5.40) m/uL Hgb 8.8 L (11.4-16.0) gm/dL Hct 28.7 L (34.0-46.0) % MCHC 30.6 L (31.0-37.0) g/dL Plt Count 467 H (150-450) k/uL Neutrophils # 10.6 H (1.3-7.7) k/uL PT 15.2 H (9.0-12.0) sec INR 1.5 H (<1.2) APTT 31.3 H (22.0-30.0) sec Sodium (137-145) mmol/L Chloride (98-107) mmol/L Carbon Dioxide (22-30) mmol/L BUN (7-17) mg/dL Glucose (74-99) mg/dL Calcium (8.4-10.2) mg/dL Total Bilirubin (0.2-1.3) mg/dL AST (14-36) U/L Alkaline Phosphatase (38-126) U/L Total Protein (6.3-8.2) g/dL Albumin (3.5-5.0) g/dL Urine Blood Small H (Negative) Urine Bacteria Rare H (None) /hpf 06/20/22 06/21/22 06/21/22 Range/Units 23:31 06:57 06:57 WBC 14.3 H 13.0 H (3.8-10.6) k/uL RBC 3.03 L 2.66 L (3.80-5.40) m/uL Hgb 9.2 L 8.2 L (11.4-16.0) gm/dL Hct 30.2 L 26.5 L (34.0-46.0) % MCHC 30.6 L 30.8 L (31.0-37.0) g/dL Plt Count 501 H (150-450) k/uL Neutrophils # 11.4 H 10.4 H (1.3-7.7) k/uL PT (9.0-12.0) sec INR (<1.2) APTT (22.0-30.0) sec Sodium 127 L (137-145) mmol/L Chloride 92 L (98-107) mmol/L Carbon Dioxide 31 H (22-30) mmol/L BUN 18 H (7-17) mg/dL Glucose 118 H (74-99) mg/dL Calcium 7.5 L (8.4-10.2) mg/dL Total Bilirubin 2.1 H (0.2-1.3) mg/dL AST 39 H (14-36) U/L Alkaline Phosphatase 172 H (38-126) U/L Total Protein 5.6 L (6.3-8.2) g/dL Albumin 2.6 L (3.5-5.0) g/dL Urine Blood (Negative) Urine Bacteria (None) /hpf
[2022-06-21] MEDS: MORPHINE SULFATE ER 30 MG TABLET PO SCH (20:21)
[2022-06-21] MEDS: ATORVASTATIN 40 MG TAB PO SCH (20:22)
[2022-06-22] MEDS: METOPROLOL TARTRATE 25 MG TAB PO SCH ×3 (00:18→20:28)
[2022-06-22] MEDS: MIDODRINE 5 MG TAB PO SCH ×3 (06:22→18:34)
[2022-06-22] MEDS: BACLOFEN 10 MG TAB PO SCH ×2 (07:50→20:27)
[2022-06-22] MEDS: levETIRAcetam 500 MG TAB PO SCH ×2 (07:50→20:27)
[2022-06-22] MEDS: GABAPENTIN 300 MG CAP PO SCH ×2 (07:51→17:17)
[2022-06-22] MEDS: SERTRALINE 50 MG TAB PO SCH (07:52)
[2022-06-22 09:26] LABS: Basophils % (A) 0 %; Eosinophils # (A) 0.4 k/uL (0-0.7); Eosinophils % (A) 3 %; HCT 28.1 % (34.0-46.0); HGB 8.6 gm/dL (11.4-16.0); Hypochromasia Marked; Lymphocytes # (A) 0.9 k/uL (1.0-4.8); Lymphocytes % (A) 8 %; MCH 30.6 pg (25.0-35.0); MCHC 30.6 g/dL (31.0-37.0); Macrocytosis Slight; Mean Platelet Volume 7.1; Monocytes # (A) 0.6 k/uL (0-1.0); Monocytes % (A) 5 %; Neutrophils # (A) 8.8 k/uL (1.3-7.7); Neutrophils % (A) 81 %; Platelet Count 488 k/uL (150-450); RBC 2.81 m/uL (3.80-5.40); WBC 10.9 k/uL (3.8-10.6)
--- NOTE | 2022-06-22 12:40 | P.PN ---
Subjective Progress Note Date: 06/22/22 CHIEF COMPLAINT: Rectus sheath hematoma HISTORY OF PRESENT ILLNESS: Patient lying in bed comfortably. Patient reports her pain is improving. She denies any nausea or vomiting. She is tolerating diet. Patient's blood pressure is doing better. Afebrile. WBC 13 down to 10.9 hemoglobin stable at 8.6 platelets 488 PHYSICAL EXAM: VITAL SIGNS: Reviewed. GENERAL: Well-developed in no acute distress. HEENT: No sclera icterus. Extraocular movements grossly intact. Moist buccal mucosa. Head is atraumatic, normocephalic. ABDOMEN: Left-sided abdomen is firm but is a litter softer than yesterday with mild tenderness. The umbilicus has bruising noted. NEUROLOGIC: Alert and oriented. Cranial nerves II through XII grossly intact. ASSESSMENT: 1. Left rectus sheath hematoma 2. Coagulopathy, INR greater than 10 3. History of atrial fibrillation and CVA on Coumadin PLAN: -Continue to monitor hemoglobin -Continue to hold Coumadin -Continue supportive care Physician Metal Filer note has been reviewed by physician. Signing provider agrees with the documented findings, assessment, and plan of care. Objective - Vital Signs Vital signs: Vital Signs Temp 98.0 F 06/22/22 07:39 Pulse 84 06/22/22 11:42 Resp 19 06/22/22 07:46 BP 100/67 06/22/22 11:42 Pulse Ox 100 06/22/22 11:42 FiO2 Intake & Output 06/21/22 06/22/22 06/22/22 18:59 06:59 18:59 Intake Total 420 Output Total 450 650 Balance -30 -650 Intake: Oral 420 Output: Urine 450 650 Other: Voiding Method Incontinent Incontinent Incontinent External Catheter External Catheter External Catheter - Labs CBC & Chem 7: 06/22/22 09:10 06/21/22 06:57 Labs: Abnormal Lab Results - Last 24 Hours (Table) 06/22/22 Range/Units 09:10 WBC 10.9 H (3.8-10.6) k/uL RBC 2.81 L (3.80-5.40) m/uL Hgb 8.6 L (11.4-16.0) gm/dL Hct 28.1 L (34.0-46.0) % MCHC 30.6 L (31.0-37.0) g/dL Plt Count 488 H (150-450) k/uL Neutrophils # 8.8 H (1.3-7.7) k/uL Lymphocytes # 0.9 L (1.0-4.8) k/uL
--- NOTE | 2022-06-22 15:45 | P.PN ---
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 Patient reports lower abdominal pain that has been ongoing for the past month. Pain is cramping in nature. She also reports constipation. She is unable to describe her stool. She denies any rectal bleeding. She denies any dysuria. She denies any nausea or vomiting. She denies any fever or chills. Patient denies any headache, lower extremity edema, cough, chest pain, shortness of breath, palpitations. No changes in appetite or weight. She denies any dizziness, numbness/weakness/tingling of the extremities. In the ED, she was noted to be tachycardic with heart rate in the 90s with BP of 94/54 on 2 L nasal cannula. CBC showed leukocytosis of 14.4 and hemoglobin 9.1. Coagulation panel showed INR greater than 10, PT greater than 1:30 and APTT of 109.6. CMP showed sodium of 127, chloride of 89, bicarb of 36, BUN of 19, glucose of 121, calcium is 7.7, total bilirubin of 1.9, AST of 40, alkaline phosphatase of 200, albumin of 2.8. Amylase and lipase was negative. CT AP showed left rectus sheath hematoma measuring 16.6 x 12.5 x 7.3 cm with intraperitoneal extension, right ovarian 2.7 cm cystic lesion, possible right lower lobe consolidation. Chest x-ray was negative. Patient is admitted for further workup and management of the above findings with surgery consultation. 06/21 Patient was seen and examined. Nursing reports hypotension, asymtomatic with BP in the 70s over 40s this morning. Patient denies any dizziness, chest pain, SOB or palpitations. 06/22 Patient was seen and examined. Patient reports no complaints today. Her BP has improved SBP in the low 100s. General: non toxic, no distress, appears at stated age, obese Derm: warm, dry Head: atraumatic, normocephalic, symmetric Eyes: EOMI, no lid lag, anicteric sclera Cardiovascular: Irregularly regular, no murmur Lungs: Decreased breath sounds bilateral, no rhonchi, no rales , no accessory muscle use Ext: no gross muscle atrophy, no edema, no contractures Neuro: facial droop noted, contractured left upper extremity, left lower extremity foot drop with 0 out of 5 strength. 5 out of 5 strength in the right upper and lower extremities. 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 Patient has an acute diagnosis of left rectus sheath hematoma measuring 16.6 x 12.5 x 7.3 cm with intraperitoneal extension in the setting of supratherapeutic INR from Coumadin that poses a threat to life or bodily function. Kcentra and Vitamin K 10 mg IV has been ordered in the ED. Hold Coumadin. INR has improved from > 10 to 1.1. General surgery has been consulted for findings on CTAP. CBC will be repeated tomorrow morning. Telemetry monitoring will be ordered. Unknown etiology for leukocytosis. No obvious source of infection. Continue to monitor. Hyponatremia, metabolic alkalosis and elevated BUN related to dehydration. Hold Bumex and Aldactone. Repeat BMP tomorrow morning. Liver gallbladder ultrasound limited due to morbid obesity. Patient names her daughter decision maker if she can't make decisions for herself. Patient would like to be full code. SCDs for DVT prophylaxis. I have reviewed the following citrix consultant notes: Surgery note 06/22, continue to hold Coumadin and monitor. I have reviewed the results of the following tests: CBC shows leukocytosis of 10.9 and hemoglobin of 8.6, platelet count of 488. I have ordered the following tests: CBC and BMP ordered for tomorrow. I have discussed the care of this patient with the following independent historian: None. I have independently interpreted the following test below: None. I have discussed the management of this patient with the following physician: The case was discussed with Kiana MCGUIRE, plans to observe one more day, hold Coumadin. Objective - Vital Signs Vital signs: Vital Signs Temp 98.0 F 06/22/22 07:39 Pulse 81 05/11/23 15:30 Resp 19 06/22/22 07:46 BP 102/67 06/22/22 15:30 Pulse Ox 98 06/22/22 15:30 FiO2 Intake & Output 06/21/22 06/22/22 06/22/22 18:59 06:59 18:59 Intake Total 420 Output Total 450 650 Balance -30 -650 Intake: Oral 420 Output: Urine 450 650 Other: Voiding Method Incontinent Incontinent Incontinent External Catheter External Catheter External Catheter # Voids 2 - Labs CBC & Chem 7: 06/22/22 09:10 06/21/22 06:57 Labs: Abnormal Lab Results - Last 24 Hours (Table) 06/22/22 Range/Units 09:10 WBC 10.9 H (3.8-10.6) k/uL RBC 2.81 L (3.80-5.40) m/uL Hgb 8.6 L (11.4-16.0) gm/dL Hct 28.1 L (34.0-46.0) % MCHC 30.6 L (31.0-37.0) g/dL Plt Count 488 H (150-450) k/uL Neutrophils # 8.8 H (1.3-7.7) k/uL Lymphocytes # 0.9 L (1.0-4.8) k/uL
[2022-06-22] MEDS: ATORVASTATIN 40 MG TAB PO SCH (20:28)
[2022-06-22] MEDS: MORPHINE SULFATE ER 30 MG TABLET PO SCH (20:28)
[2022-06-23] MEDS: MIDODRINE 5 MG TAB PO SCH ×2 (06:05→12:32)
[2022-06-23] MEDS: METOPROLOL TARTRATE 25 MG TAB PO SCH (08:28)
[2022-06-23] MEDS: SERTRALINE 50 MG TAB PO SCH (08:28)
[2022-06-23] MEDS: levETIRAcetam 500 MG TAB PO SCH (08:28)
[2022-06-23] MEDS: BACLOFEN 10 MG TAB PO SCH (08:28)
[2022-06-23] MEDS: GABAPENTIN 300 MG CAP PO SCH (08:28)
[2022-06-23 08:29] VITALS: TEMP 98.1
[2022-06-23 09:53] LABS: HCT 29.7 % (34.0-46.0); HGB 9.5 gm/dL (11.4-16.0); Hypochromasia Slight; MCH 30.2 pg (25.0-35.0); Mean Platelet Volume 8.6; Platelet Count 398 k/uL (150-450); RBC 3.15 m/uL (3.80-5.40); RDW 15.9 % (11.5-15.5); WBC 11.9 k/uL (3.8-10.6)
[2022-06-23 09:54] LABS: MCV 94.3 fL (80.0-100.0)
[2022-06-23 10:07] LABS: ALT 12 U/L (4-34); AST 40 U/L (14-36); African American GFR (CKD) >90 (>60 ml/min/1.73 sqM); Albumin 2.7 g/dL (3.5-5.0); Alkaline Phosphatase 201 U/L (38-126); Anion Gap 6 mmol/L; Blood Urea Nitrogen 17 mg/dL (7-17); Calcium 7.9 mg/dL (8.4-10.2); Carbon Dioxide 26 mmol/L (22-30); Chloride 95 mmol/L (98-107); Glucose 133 mg/dL (74-99); Non-African American GFR(CKD) 83 (>60 ml/min/1.73 sqM); Sodium 127 mmol/L (137-145); Total Bilirubin 1.9 mg/dL (0.2-1.3)
[2022-06-23 10:10] LABS: Band Neutrophils % 2 %; Eosinophils # (M) 0.48 k/uL (0-0.7); Lymphocytes # (M) 1.67 k/uL (1.0-4.8); Metamyelocytes # (M) 0.24 k/uL (0); Metamyelocytes % 2 %; Monocytes # (M) 1.07 k/uL (0-1.0); Myelocytes # (M) 0.24 k/uL (0); Myelocytes % 2 %; Neutrophils % (M) 69 %; Nucleated Red Blood Cells 0 /100 WBC (0-0); Total Cells Counted 200
[2022-06-23 10:11] LABS: Polychromasia Present
[2022-06-23 10:28] LABS: Potassium 4.5 mmol/L (3.5-5.1)
[2022-06-23 12:28] VITALS: BP 92/57; PULSE 78; RESP 16
--- NOTE | 2022-06-23 13:26 | P.DS ---
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 Patient reports lower abdominal pain that has been ongoing for the past month. Pain is cramping in nature. She also reports constipation. She is unable to describe her stool. She denies any rectal bleeding. She denies any dysuria. She denies any nausea or vomiting. She denies any fever or chills. Patient denies any headache, lower extremity edema, cough, chest pain, shortness of breath, palpitations. No changes in appetite or weight. She denies any dizziness, numbness/weakness/tingling of the extremities. In the ED, she was noted to be tachycardic with heart rate in the 90s with BP of 94/54 on 2 L nasal cannula. CBC showed leukocytosis of 14.4 and hemoglobin 9.1. Coagulation panel showed INR greater than 10, PT greater than 1:30 and APTT of 109.6. CMP showed sodium of 127, chloride of 89, bicarb of 36, BUN of 19, glucose of 121, calcium is 7.7, total bilirubin of 1.9, AST of 40, alkaline phosphatase of 200, albumin of 2.8. Amylase and lipase was negative. CT AP showed left rectus sheath hematoma measuring 16.6 x 12.5 x 7.3 cm with intraperitoneal extension, right ovarian 2.7 cm cystic lesion, possible right lower lobe consolidation. Chest x-ray was negative. Patient was given KCentra and Vitamin K in the ED and admitted for further workup. 06/21 Patient was seen and examined. Her INR has normalized with the above treatment. Nursing reports hypotension, asymtomatic with BP in the 70s over 40s this morning. Her hypotension resolved with bolus of NS. Patient denies any dizziness, chest pain, SOB or palpitations. 06/22 Patient was seen and examined. Patient reports no complaints today. Her BP has improved SBP in the low 100s. Liver gallbladder ultrasound limited due to morbid obesity. Echo showed EF 45-50% with mild LV thickness, severe atrial dilation, severe TR. 06/23 Patient was seen and examined. Patient reports no complaints today. Her SBP is in the low 100s. The case was discussed with Dr. Levine who stated that patient was cleared from a surgical standpoint and is to discontinue blood thinners until outpatient follow up. Her hemoglobin remained stable and was 9.5 on the day of discharge. Due to her hypotension, Aldactone and Bumex was discontinued. Patient will be discharged with the following instructions: Diet: Cardiac DISCONTINUE COUMADIN UNTIL FOLLOW UP WITH DR. LEVINE Follow up with your PCP within 1-2 days of discharge. Follow up with Dr. Levine within 1 week of discharge. Repeat CBC in 3 days, follow up results with PCP. Come back to the ED for worsening abdominal pain, chest pain, shortness of breath or dizziness. Pertient studies include CT AP, CXR, Liver US and Echocardiogram. General: non toxic, no distress, appears at stated age, obese Derm: warm, dry Head: atraumatic, normocephalic, symmetric Eyes: EOMI, no lid lag, anicteric sclera Cardiovascular: Irregularly regular, no murmur Lungs: Decreased breath sounds bilateral, no rhonchi, no rales , no accessory muscle use Ext: no gross muscle atrophy, no edema, no contractures Neuro: facial droop noted, contractured left upper extremity, left lower extremity foot drop with 0 out of 5 strength. 5 out of 5 strength in the right upper and lower extremities. 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 Patient Condition at Discharge: Stable Plan - Discharge Summary Discharge Rx Participant: Yes New Discharge Prescriptions: Continue Atorvastatin Calcium [Lipitor] 40 mg PO HS Gabapentin 600 mg PO BID@0900,1700 levETIRAcetam 1,000 mg PO BID Acetaminophen Tab [Tylenol] 650 mg PO Q6H PRN PRN Reason: Pain Magnesium Hydroxide [Milk of Magnesia] 2,400 mg PO Q72H PRN PRN Reason: Constipation Sennosides [Senna] 17.2 mg PO HS Na Phos,M-B/Na Phos,Di-Ba [Fleet Adult] 133 ml RECTAL DAILY PRN PRN Reason: Constipation Metoprolol Tartrate [Lopressor] 12.5 mg PO BID Sertraline [Zoloft] 50 mg PO DAILY Baclofen 5 mg PO BID Potassium Chloride ER [K-Dur 20] 20 meq PO BID #0 traMADol HCl [Ultram] 50 mg PO BID PRN PRN Reason: Pain Midodrine HCl [ProAmantine] 2.5 mg PO TID@0700,1300,1900 Morphine Sulfate ER [Ms Contin] 30 mg PO HS Changed Docusate Sodium [Dok] 100 mg PO BID PRN #0 PRN Reason: Constipation Hydrocortisone Cream [Hydrocortisone 1% Cream] 1 applic TOPICAL HS PRN #0 PRN Reason: Hemorrhoids Lactulose 20 gm PO BID PRN #0 PRN Reason: Constipation Discontinued Spironolactone [Aldactone] 25 mg PO DAILY Bumetanide [BUMEX] 2 mg PO BID Warfarin [Coumadin] 2.5 mg PO HS Discharge Medication List Atorvastatin Calcium [Lipitor] 40 mg PO HS 09/06/15 [History] Gabapentin 600 mg PO BID@0900,1700 09/13/15 [History] levETIRAcetam 1,000 mg PO BID 11/23/16 [History] Acetaminophen Tab [Tylenol] 650 mg PO Q6H PRN 10/01/17 [History] Magnesium Hydroxide [Milk of Magnesia] 2,400 mg PO Q72H PRN 10/01/17 [History] Sennosides [Senna] 17.2 mg PO HS 10/01/17 [History] Baclofen 5 mg PO BID 03/03/21 [History] Metoprolol Tartrate [Lopressor] 12.5 mg PO BID 03/03/21 [History] Sertraline [Zoloft] 50 mg PO DAILY 03/03/21 [History] Potassium Chloride ER [K-Dur 20] 20 meq PO BID #0 03/05/21 [Rx] Midodrine HCl [ProAmantine] 2.5 mg PO TID@0700,1300,1900 06/20/22 [History] Morphine Sulfate ER [Ms Contin] 30 mg PO HS 06/20/22 [History] Na Phos,M-B/Na Phos,Di-Ba [Fleet Adult] 133 ml RECTAL DAILY PRN 06/20/22 [History] traMADol HCl [Ultram] 50 mg PO BID PRN 06/20/22 [History] Docusate Sodium [Dok] 100 mg PO BID PRN #0 06/23/22 [Rx] Hydrocortisone Cream [Hydrocortisone 1% Cream] 1 applic TOPICAL HS PRN #0 06/23/22 [Rx] Lactulose 20 gm PO BID PRN #0 06/23/22 [Rx] Follow up Appointment(s)/Referral(s): Jerri Hodgson DO [Primary Care Provider] - 1-2 days Andrew Levine MD [STAFF PHYSICIAN] - 1 Week Ambulatory/Diagnostic Orders: Complete Blood Count w/diff [LAB.AMB] Time Frame: 3 Days, Location: None Selected Activity/Diet/Wound Care/Special Instructions: Diet: Cardiac DISCONTINUE COUMADIN UNTIL FOLLOW UP WITH DR. LEVINE Follow up with your PCP within 1-2 days of discharge. Follow up with Dr. Levine within 1 week of discharge. Repeat CBC in 3 days, follow up results with PCP. Come back to the ED for worsening abdominal pain, chest pain, shortness of breath or dizziness. Discharge Disposition: HOME SELF-CARE
--- NOTE | 2022-06-23 13:51 | P.PN ---
Progress Note - Text Progress Note Date: 06/23/22 patient nora stable. Her hemoglobin is stable. She has no new abdominal pain. On exam vital signs are stable. Abdomen is soft. Resolving rectus sheath hematoma. No surgical invention is planned. The patient will be discharged home per medicine. The patient should not resume any anticoagulants
== END 2022-06-23 15:09 | disposition home or self-care (01) | DRG 605 ==
LOC: EC 11:18 → 3SCARD 16:12
PROVIDERS: ADMIT Internal Medicine; ATTEND Internal Medicine
PROC: 30283B1 Transfusion of Nonautologous 4-Factor Prothrombin Complex Concentrate into Vein, Percutaneous Approach (ICD-10-PCS; principal; 2022-06-20)
DX: S30.1XXA Contusion of abdominal wall, initial encounter (principal); D68.9 Coagulation defect, unspecified; Z68.41 Body mass index [BMI] 40.0-44.9, adult; I69.354 Hemiplegia and hemiparesis following cerebral infarction affecting left non-dominant side; E87.1 Hypo-osmolality and hyponatremia; E87.3 Alkalosis; I50.22 Chronic systolic (congestive) heart failure; I69.392 Facial weakness following cerebral infarction; E66.01 Morbid (severe) obesity due to excess calories; E78.5 Hyperlipidemia, unspecified; I25.10 Atherosclerotic heart disease of native coronary artery without angina pectoris; F32.A Depression, unspecified; E86.0 Dehydration; G40.909 Epilepsy, unspecified, not intractable, without status epilepticus; I07.1 Rheumatic tricuspid insufficiency; I11.0 Hypertensive heart disease with heart failure; I48.91 Unspecified atrial fibrillation; M21.372 Foot drop, left foot; N83.209 Unspecified ovarian cyst, unspecified side; T45.515A Adverse effect of anticoagulants, initial encounter; Z74.01 Bed confinement status; Z79.01 Long term (current) use of anticoagulants; Z79.899 Other long term (current) drug therapy; Z95.2 Presence of prosthetic heart valve; Z88.5 Allergy status to narcotic agent; Z88.8 Allergy status to other drugs, medicaments and biological substances
CPT/HCPCS: 36415; 71046; 74177; 76705; 80053; 81001; 82150; 83605; 83690; 84484; 85025; 85610; 85730; 93005; 93306; 96361; 96365; 96375; 99285

== ENCOUNTER → 2023-08-03 | Outpatient (CLI) | payer MEDICARE, OTHER ==
--- NOTE | 2023-08-03 18:30 | CA ---
Transthoracic Echo Report Name: Asha Duncan Age: 73 Gender: F : 1950 Exam Date: 08/03/2023 11:38 Exam Location: [facility] Ht (in): 68 Wt (lb): 303 Ordering Physician: Cesar Escamilla DO ([email or web address]) Attending/Referring Phys: Hayley Martinez [facility] [employer] Radha Bal RDCS Procedure CPT: Indications: R07.9 CHEST PAIN, UNSPECIFIED Cardiac Hx: Mechanical MV, TV repair Technical Quality: Fair Contrast 1: Total Dose (mL): Contrast 2: Total Dose (mL): MEASUREMENTS (Male / Female) Normal Values 2D ECHO LV Diastolic Diameter PLAX 5.7 cm 4.2 - 5.9 / 3.9 - 5.3 cm LV Systolic Diameter PLAX 4.8 cm IVS Diastolic Thickness 0.8 cm 0.6 - 1.0 / 0.6 - 0.9 cm LVPW Diastolic Thickness 0.9 cm 0.6 - 1.0 / 0.6 - 0.9 cm LV Relative Wall Thickness 0.3 RV Internal Dim ED PLAX 4.7 cm LA Systolic Diameter LX 5.3 cm 3.0 - 4.0 / 2.7 - 3.8 cm LA Volume 144.6 cm??? 18 - 58 / 22 - 52 cm??? LA Volume Index 54.8 cm???/m??? 16 - 28 cm???/m??? M-MODE Aortic Root Diameter MM 3.2 cm AV Cusp Separation MM 1.7 cm DOPPLER AV Peak Velocity 101.5 cm/s AV Peak Gradient 4.1 mmHg MV Peak Velocity 158.6 cm/s MV Peak Gradient 10.1 mmHg MV Mean Velocity 90.2 cm/s MV Mean Gradient 4.1 mmHg MV Velocity Time Integral 37.0 cm MV Area PHT 2.5 cm??? MV Deceleration Time 330.4 ms TR Peak Velocity 234.9 cm/s TR Peak Gradient 22.1 mmHg Right Ventricular Systolic Press 36.0 mmHg FINDINGS Left Ventricle Left ventricular ejection fraction is estimated at 40-45 %. Mildly increased left ventricular diastolic diameter. Left ventricular wall thickness normal. No obvious regional wall motion abnormalities. Mildly reduced global left ventricular systolic function. Right Ventricle Severe right ventricular dilatation. Mild pulmonary hypertension. Right Atrium Severe right atrial dilatation. Left Atrium Severely increased left atrial diameter. Severely increased left atrial volume. Moderately increased left atrial area. Mitral Valve Normly functioning mechanical mitral valve with mean gradient of 4 mmHg. Mild mitral regurgitation. Aortic Valve Trileaflet aortic valve. No aortic valve stenosis or regurgitation. Tricuspid Valve Structurally normal tricuspid valve. Severe tricuspid regurgitation. TV repair Pulmonic Valve Structurally normal pulmonic valve. Trace pulmonic regurgitation. Pericardium No pericardial effusion. Aorta Normal size aortic root and proximal ascending aorta. CONCLUSIONS Technically difficult study for interpretation was poorly visualized endocardium and intracardiac valves Mildly impaired LV function with EF between 40 to 45% The visualized mitral valve. Mechanical valve in mitral position with acceptable gradient across it mild mitral regurgitation Mild pulmonary hypertension Severely enlarged right ventricle Severe tricuspid regurgitation Previewed by: Dr. Miguel Solano MD (Electronically Signed) Final Date: 03 August 2023 18:29
== END | disposition home or self-care (01) ==
LOC: RADECHMAIN 11:29
PROVIDERS: ATTEND Internal Medicine
DX: I08.1 Rheumatic disorders of both mitral and tricuspid valves (principal); I27.20 Pulmonary hypertension, unspecified
CPT/HCPCS: 93306

== ENCOUNTER 2023-12-13 03:08 | Inpatient (IN) | payer MEDICARE, OTHER ==
[2023-12-13] MEDS ORDERED: MORPHINE SULFATE 4 MG/ML SYRINGE IV STA (03:12)
[2023-12-13] MEDS ORDERED: ASPIRIN 81 MG PO STA (03:12)
--- NOTE | 2023-12-13 03:38 | XR ---
EXAM: XR Chest, 1 View CLINICAL HISTORY: ITS.REASON XR Reason: difficulty breathing TECHNIQUE: Frontal view of the chest. COMPARISON: Chest radiograph on 06/20/2022 FINDINGS: Hardware: None. Lungs/pleura: Prominent lung markings and lower lung opacities. No pleural effusion or pneumothorax. Heart/mediastinum: Stable enlargement of the cardiac silhouette. Median sternotomy changes. Atherosclerotic changes in aorta. Soft tissues: Unremarkable. Bones: No acute fracture. Upper abdomen: Normal. IMPRESSION: Prominent lung markings and lower lung opacities which may represent pulmonary vasculature congestion/edema. Component of infectious/inflammatory process cannot be excluded.
[2023-12-13 03:39] LABS: ALT 10 U/L (4-34); AST 37 U/L (14-36); African American GFR (CKD) >90 (>60 ml/min/1.73 sqM); Albumin 3.5 g/dL (3.5-5.0); Alkaline Phosphatase 178 U/L (38-126); Basophils % (A) 0 %; Blood Urea Nitrogen 16 mg/dL (7-17); Calcium 8.2 mg/dL (8.4-10.2); Chloride 91 mmol/L (98-107); Eosinophils # (A) 0.3 k/uL (0-0.7); Eosinophils % (A) 4 %; Glucose 159 mg/dL (74-99); HCT 34.5 % (34.0-46.0); HGB 10.5 gm/dL (11.4-16.0); Hypochromasia Marked; Lymphocytes # (A) 1.3 k/uL (1.0-4.8); Lymphocytes % (A) 19 %; MCH 31.6 pg (25.0-35.0); MCHC 30.4 g/dL (31.0-37.0); MCV 103.9 fL (80.0-100.0); Macrocytosis Slight; Mean Platelet Volume 8.2; Monocytes # (A) 0.5 k/uL (0-1.0); Monocytes % (A) 7 %; Neutrophils # (A) 4.5 k/uL (1.3-7.7); Neutrophils % (A) 67 %; Non-African American GFR(CKD) 89 (>60 ml/min/1.73 sqM); Platelet Count 183 k/uL (150-450); Potassium 4.3 mmol/L (3.5-5.1); RBC 3.32 m/uL (3.80-5.40); RDW 14.2 % (11.5-15.5); Sodium 136 mmol/L (137-145); Total Bilirubin 1.1 mg/dL (0.2-1.3); Total Protein 7.4 g/dL (6.3-8.2); WBC 6.7 k/uL (3.8-10.6)
[2023-12-13 03:40] LABS: INR 1.7 (<1.2); Partial Thromboplastin Time 26.1 sec (22.0-30.0); Prothrombin Time 17.3 sec (10.0-12.5)
[2023-12-13 03:45] LABS: Anion Gap 4 mmol/L
[2023-12-13] MEDS: predniSONE 20 MG TAB PO STA (03:45)
[2023-12-13] MEDS: methylPREDNISolone SOD SUCCI 125 MG/2 ML VIAL IV STA (03:49)
[2023-12-13 03:59] LABS: Carbon Dioxide 41 mmol/L (22-30)
[2023-12-13 04:12] LABS: VBG PH 7.3 (7.31-7.41)
--- NOTE | 2023-12-13 10:34 | ED ---
General Adult HPI - General Chief complaint: Shortness of Breath Stated complaint: Difficulty Breathing Time Seen by Provider: 12/13/23 03:10 Source: patient, EMS, RN notes reviewed, old records reviewed Mode of arrival: EMS Limitations: no limitations - History of Present Illness Initial comments: Patient originally seen by Dr. Carroll. Note has not been completed at this time and therefore I am starting my own note. Patient is a 73-year-old female presenting to the emergency department with concern for shortness of breath and confusion. Patient is a very poor historian. Patient admits to feeling much better on BiPAP. - Related Data Home Medications Medication Instructions Recorded Confirmed Atorvastatin Calcium [Lipitor] 40 mg PO HS 09/06/15 12/13/23 levETIRAcetam 1,000 mg PO BID 11/23/16 12/13/23 Sennosides [Senna] 8.6 mg PO BID 10/01/17 12/13/23 Baclofen 5 mg PO BID 03/03/21 12/13/23 Metoprolol Tartrate [Lopressor] 12.5 mg PO BID 03/03/21 12/13/23 Sertraline [Zoloft] 50 mg PO DAILY 03/03/21 12/13/23 Betamethasone Dipropionate 1 applic TOPICAL Q24H PRN 12/13/23 12/13/23 [Betamethasone Dipropionate 0.05% Cream] Bumetanide [BUMEX] 2 mg PO BID 12/13/23 12/13/23 Cetirizine HCl [Zyrtec] 10 mg PO DAILY 12/13/23 12/13/23 Docusate Sodium [Dok] 100 mg PO DAILY 12/13/23 12/13/23 Docusate [Colace] 100 mg PO BID PRN 12/13/23 12/13/23 Gabapentin 600 mg PO BID 12/13/23 12/13/23 Miconazole Nitrate [Lotrimin AF 1 applic TOPICAL BID 12/13/23 12/13/23 Powder] Midodrine [ProAmatine] 5 mg PO TID 12/13/23 12/13/23 Naloxone HCl 0.4 mg IM DIRECTED PRN 12/13/23 12/13/23 Naloxone HCl [Narcan] 4 mg NASAL DIRECTED PRN 12/13/23 12/13/23 Pramipexole [Mirapex] 0.5 mg PO HS 12/13/23 12/13/23 Spironolactone [Aldactone] 50 mg PO DAILY 12/13/23 12/13/23 Warfarin Sodium 2 mg PO HS 12/13/23 12/13/23 polyethylene glycoL 3350 [Miralax] 17 gm PO DAILY 12/13/23 12/13/23 traMADol HCl [Ultram] 50 mg PO BID PRN 12/13/23 12/13/23 Previous Rx's Medication Instructions Recorded Potassium Chloride ER [K-Dur 20] 20 meq PO BID #0 03/05/21 Morphine Sulfate ER [Ms Contin] 30 mg PO HS #3 tab 06/23/22 Allergies Allergy/AdvReac Type Severity Reaction Status Date / Time codeine Allergy Chest Pain Verified 12/13/23 03:19 lorazepam [From Ativan] AdvReac GIVES THE Verified 12/13/23 03:19 OPPOSITE EFFECT Review of Systems ROS Statement: Those systems with pertinent positive or pertinent negative responses have been documented in the HPI. 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 Left shoulder fracture 2016, 2018.bakers cyst behind rt knee. History of Any Multi-Drug Resistant Organisms: None Reported Past Surgical History: Appendectomy, Cardiac Valve Replacement, Cholecystectomy, Heart Catheterization, Tubal Ligation Additional Past Surgical History / Comment(s): COLONOSCOPY, STATED HAD A "MITRAL VALVE REPLACEMENT" Past Anesthesia/Blood Transfusion Reactions: No Reported Reaction Past Psychological History: Depression Smoking Status: Never smoker Past Alcohol Use History: None Reported Past Drug Use History: None Reported - Past Family History Father Family Medical History: Cancer Additional Family Medical History / Comment(s): BRAIN AND LUNG CANCER Mother Family Medical History: Coronary Artery Disease (CAD), Dementia Additional Family Medical History / Comment(s): PT COULDN'T REMEMBER WHAT MOM FROM General Exam Limitations: physical limitation General appearance: alert Head exam: Present: normocephalic Eye exam: Present: normal appearance Respiratory exam: Present: wheezes, decreased breath sounds Cardiovascular Exam: Present: irregular rhythm GI/Abdominal exam: Present: soft. Absent: tenderness Extremities exam: Present: pedal edema Neurological exam: Present: alert, other (Left weakness) Psychiatric exam: Present: normal affect, normal mood Skin exam: Present: normal color Course Vital Signs 12/13/23 12/13/23 12/13/23 03:09 04:19 04:49 Temperature 98.2 F Pulse Rate 105 H 100 Respiratory 30 H 26 H Rate Blood Pressure 135/93 118/71 O2 Sat by Pulse 99 97 Oximetry Fraction of 40 Inspired Oxygen (FIO2) 12/13/23 12/13/23 12/13/23 06:00 08:04 08:55 Temperature 97.8 F Pulse Rate 85 96 Respiratory 25 H 16 Rate Blood Pressure 112/61 103/84 O2 Sat by Pulse 92 L 92 L Oximetry Fraction of 40 Inspired Oxygen (FIO2) Medical Decision Making - Medical Decision Making Was pt. sent in by a medical professional or institution (, PA, REFRIGERATION ENGINE OPERATOR, urgent care, hospital, or custodial...) When possible be specific @ -Patient was sent from custodial Did you speak to anyone other than the patient for history (EMS, parent, family, police, friend...)? What history was obtained from this source @ -Dr. Carroll did speak with EMS Did you review nursing and triage notes (agree or disagree)? Why? @ -I reviewed and agree with nursing and triage notes Were old charts reviewed (outside hosp., previous admission, EMS record, old EKG, old radiological studies, urgent care reports/EKG's, custodial records)? Report findings @ -Chart reviewed from custodial Differential Diagnosis (chest pain, altered mental status, abdominal pain women, abdominal pain men, vaginal bleeding, weakness, fever, dyspnea, syncope, headache, dizziness, GI bleed, back pain, seizure, CVA, palpatations, mental health, musculoskeletal)? @ -Differential Dyspnea: Coronary syndrome, arrhythmia, tamponade, asthma, COPD, pulmonary embolism, pneumonia, pneumothorax, pulmonary effusion, anaphylaxis, diabetic ketoacidosis, flailed chest, pulmonary contusion, diaphragmatic rupture, anemia, neuromuscul ar, this is not meant to be an all-inclusive list. EKG interpreted by me (3pts min.). @ -A-fib with rate of 104. QRS 110. QT 349. Right axis. Normal QRS. No acute ST change. X-rays interpreted by me (1pt min.). @ -Chest x-ray does show significant cardiomegaly and prominent lung markings concerning for CHF CT interpreted by me (1pt min.). @ -None done U/S interpreted by me (1pt. min.). @ -None done What testing was considered but not performed or refused? (CT, X-rays, U/S, labs)? Why? @ -None What meds were considered but not given or refused? Why? @ -None Did you discuss the management of the patient with other professionals (professionals i.e. DrJeison, PA, REFRIGERATION ENGINE OPERATOR, lab, RT, psych nurse, licensed clinical social worker, branch examiner, teacher, executive vice president and chief financial officer, case fitter)? Give summary @ -Case was discussed with practitioner Edna Dawson who will admit covering hospital call Was smoking cessation discussed for >3mins.? @ -No Was critical care preformed (if so, how long)? @ -31 minutes critical care time Were there social determinants of health that impacted care today? How? (Homelessness, low income, unemployed, alcoholism, drug addiction, transportation, low edu. Level, literacy, decrease access to med. care, fpc, rehab)? @ -No Was there de-escalation of care discussed even if they declined (Discuss DNR or withdrawal of care, Hospice)? DNR status @ -No What co-morbidities impacted this encounter? (DM, HTN, Smoking, COPD, CAD, Cancer, CVA, ARF, Chemo, Hep., AIDS, mental health diagnosis, sleep apnea, morbid obesity)? @ -None Was patient admitted / discharged? Hospital course, mention meds given and route, prescriptions, significant lab abnormalities, going to OR and other pertinent info. @ -Patient presents with dyspnea and some altered mental status. Concern for CHF as well as CO2 retention. Patient will be admitted with consult. Admission orders written. Patient is on BiPAP. Undiagnosed new problem with uncertain prognosis? @ -No Drug Therapy requiring intensive monitoring for toxicity (Heparin, Nitro, Insulin, Cardizem)? @ -Patient is on BiPAP Were any procedures done? @ -No Diagnosis/symptom? @ -Hypercarbia, CHF Acute, or Chronic, or Acute on Chronic? @ -Acute, acute Uncomplicated (without systemic symptoms) or Complicated (systemic symptoms)? @ -Default Side effects of treatment? @ -No Exacerbation, Progression, or Severe Exacerbation? @ -No Poses a threat to life or bodily function? How? (Chest pain, [place], [place], pneumonia, PE, COPD, DKA, ARF, appy, cholecystitis, CVA, Diverticulitis, Homicidal, Suicidal, threat to staff... and all critical care pts) @ -Threat to pulmonary and cardiac function - Lab Data Result diagrams: 12/13/23 03:15 12/13/23 03:15 Lab Results 12/13/23 12/13/23 12/13/23 Range/Units 03:15 03:15 03:15 WBC 6.7 (3.8-10.6) k/uL RBC 3.32 L (3.80-5.40) m/uL Hgb 10.5 L (11.4-16.0) gm/dL Hct 34.5 (34.0-46.0) % MCV 103.9 H (80.0-100.0) fL MCH 31.6 (25.0-35.0) pg MCHC 30.4 L (31.0-37.0) g/dL RDW 14.2 (11.5-15.5) % Plt Count 183 (150-450) k/uL MPV 8.2 Neutrophils % 67 % Lymphocytes % 19 % Monocytes % 7 % Eosinophils % 4 % Basophils % 0 % Neutrophils # 4.5 (1.3-7.7) k/uL Lymphocytes # 1.3 (1.0-4.8) k/uL Monocytes # 0.5 (0-1.0) k/uL Eosinophils # 0.3 (0-0.7) k/uL Basophils # 0.0 (0-0.2) k/uL Hypochromasia Marked Macrocytosis Slight PT 17.3 H (10.0-12.5) sec INR 1.7 H (<1.2) APTT 26.1 (22.0-30.0) sec VBG pH (7.31-7.41) VBG pCO2 (37-51) mmHg VBG HCO3 (24-28) mmol/L Sodium 136 L (137-145) mmol/L Potassium 4.3 (3.5-5.1) mmol/L Chloride 91 L (98-107) mmol/L Carbon Dioxide 41 H* (22-30) mmol/L Anion Gap 4 mmol/L BUN 16 (7-17) mg/dL Creatinine 0.66 (0.52-1.04) mg/dL Est GFR (CKD-EPI)AfAm >90 (>60 ml/min/1.73 sqM) Est GFR (CKD-EPI)NonAf 89 (>60 ml/min/1.73 sqM) Glucose 159 H (74-99) mg/dL Plasma Lactic Acid Elliott (0.7-2.0) mmol/L Calcium 8.2 L (8.4-10.2) mg/dL Total Bilirubin 1.1 (0.2-1.3) mg/dL AST 37 H (14-36) U/L ALT 10 (4-34) U/L Alkaline Phosphatase 178 H (38-126) U/L Troponin I (0.000-0.034) ng/mL NT-Pro-B Natriuret Pep pg/mL Total Protein 7.4 (6.3-8.2) g/dL Albumin 3.5 (3.5-5.0) g/dL 12/13/23 12/13/23 12/13/23 Range/Units 03:15 03:15 03:24 WBC (3.8-10.6) k/uL RBC (3.80-5.40) m/uL Hgb (11.4-16.0) gm/dL Hct (34.0-46.0) % MCV (80.0-100.0) fL MCH (25.0-35.0) pg MCHC (31.0-37.0) g/dL RDW (11.5-15.5) % Plt Count (150-450) k/uL MPV Neutrophils % % Lymphocytes % % Monocytes % % Eosinophils % % Basophils % % Neutrophils # (1.3-7.7) k/uL Lymphocytes # (1.0-4.8) k/uL Monocytes # (0-1.0) k/uL Eosinophils # (0-0.7) k/uL Basophils # (0-0.2) k/uL Hypochromasia Macrocytosis PT (10.0-12.5) sec INR (<1.2) APTT (22.0-30.0) sec VBG pH (7.31-7.41) VBG pCO2 (37-51) mmHg VBG HCO3 (24-28) mmol/L Sodium (137-145) mmol/L Potassium (3.5-5.1) mmol/L Chloride (98-107) mmol/L Carbon Dioxide (22-30) mmol/L Anion Gap mmol/L BUN (7-17) mg/dL Creatinine (0.52-1.04) mg/dL Est GFR (CKD-EPI)AfAm (>60 ml/min/1.73 sqM) Est GFR (CKD-EPI)NonAf (>60 ml/min/1.73 sqM) Glucose (74-99) mg/dL Plasma Lactic Acid Elliott 1.2 (0.7-2.0) mmol/L Calcium (8.4-10.2) mg/dL Total Bilirubin (0.2-1.3) mg/dL AST (14-36) U/L ALT (4-34) U/L Alkaline Phosphatase (38-126) U/L Troponin I 0.012 (0.000-0.034) ng/mL NT-Pro-B Natriuret Pep 1760 pg/mL Total Protein (6.3-8.2) g/dL Albumin (3.5-5.0) g/dL 12/13/23 Range/Units 03:38 WBC (3.8-10.6) k/uL RBC (3.80-5.40) m/uL Hgb (11.4-16.0) gm/dL Hct (34.0-46.0) % MCV (80.0-100.0) fL MCH (25.0-35.0) pg MCHC (31.0-37.0) g/dL RDW (11.5-15.5) % Plt Count (150-450) k/uL MPV Neutrophils % % Lymphocytes % % Monocytes % % Eosinophils % % Basophils % % Neutrophils # (1.3-7.7) k/uL Lymphocytes # (1.0-4.8) k/uL Monocytes # (0-1.0) k/uL Eosinophils # (0-0.7) k/uL Basophils # (0-0.2) k/uL Hypochromasia Macrocytosis PT (10.0-12.5) sec INR (<1.2) APTT (22.0-30.0) sec VBG pH 7.30 L (7.31-7.41) VBG pCO2 98 H* (37-51) mmHg VBG HCO3 48 H (24-28) mmol/L Sodium (137-145) mmol/L Potassium (3.5-5.1) mmol/L Chloride (98-107) mmol/L Carbon Dioxide (22-30) mmol/L Anion Gap mmol/L BUN (7-17) mg/dL Creatinine (0.52-1.04) mg/dL Est GFR (CKD-EPI)AfAm (>60 ml/min/1.73 sqM) Est GFR (CKD-EPI)NonAf (>60 ml/min/1.73 sqM) Glucose (74-99) mg/dL Plasma Lactic Acid Elliott (0.7-2.0) mmol/L Calcium (8.4-10.2) mg/dL Total Bilirubin (0.2-1.3) mg/dL AST (14-36) U/L ALT (4-34) U/L Alkaline Phosphatase (38-126) U/L Troponin I (0.000-0.034) ng/mL NT-Pro-B Natriuret Pep pg/mL Total Protein (6.3-8.2) g/dL Albumin (3.5-5.0) g/dL Disposition Clinical Impression: Acute respiratory failure, Hypercarbia, CHF (congestive heart failure) Disposition: ADMITTED IP TO THIS HOSP Is patient prescribed a controlled substance at d/c from ED?: No Referrals: Jerri Hodgson DO [Primary Care Provider] - 1-2 days Time of Disposition: 10:35
[2023-12-13] MEDS ORDERED: NALOXONE 0.4 MG/ML 1 ML VIAL IVP PRN (10:39)
[2023-12-13] MEDS ORDERED: IPRATROPIUM-ALBUTEROL 3 ML NEB INHALATION PRN (10:39)
[2023-12-13] MEDS: ASPIRIN 325 MG TAB PO STA (11:18)
[2023-12-13] MEDS: FUROSEMIDE 10 MG/ML 4 ML VIAL IV SCH ×2 (11:40→20:31)
[2023-12-13] MEDS ORDERED: BETAMETHASONE DIPROPIONATE 0.05% CREAM 15 GM TUBE TOPICAL PRN (11:40)
--- NOTE | 2023-12-13 11:47 | P.HPIM ---
History of Present Illness Patient is a pleasant 73-year-old female was sent in because of decreased level of consciousness with concerns of aspiration. Patient was also short of breath patient is found to be in hypercapnic respiratory failure with pH of 7.3 and pCO2 of 90 and pO2 of around 70. Patient does have history of obstructive sleep apnea morbidly obese female uses CPAP machine at nighttime. Patient does have multiple other medical problems including congestive heart failure with a EF of around 40 to 45% chest x-ray showing some pulmonary edema and BNP of 1700. Patient does not have any fever chills presently on BiPAP at this time. Patient is on Bumex 2 mg twice a day as an outpatient. Patient does have mild pedal edema on exam. Patient does use oxygen at baseline. Patient is mostly bedbound bilateral does have bilateral foot drop has history of cerebrovascular accident as well in the past REVIEW OF SYSTEMS: All other systems are negative except those mentioned in the HPI PHYSICAL EXAMINATION: GENERAL: Morbidly obese drowsy oriented x 3 arousable on BiPAP. HEENT: Pupils are round and equally reacting to light. EOMI. No scleral icterus. No conjunctival pallor. Normocephalic, atraumatic. No pharyngeal erythema. No thyromegaly. CARDIOVASCULAR: S1 and S2 present. No murmurs, rubs, or gallops. PULMONARY: Good air entry with mild expiratory wheezing on exam ABDOMEN: Soft, nontender, nondistended, normoactive bowel sounds. No palpable organomegaly. MUSCULOSKELETAL: No joint swelling or deformity. EXTREMITIES: No cyanosis, clubbing, or my lower EXTR bilateral pedal edema NEUROLOGICAL: Gross neurological examination did not reveal any focal deficits. SKIN: No rashes. Assessment and plan -Acute hypoxic and hypercapnic respiratory failure on chronic hypercapnic respiratory failure and is is probably because of obesity sleep apnea and mild bronchitis may have contributed to CO2 retention patient is on BiPAP which will be continued patient on steroid may not benefit much from steroids although she does have wheezing because of which I am continuing with steroids at this time -Acute hypoxic respiratory failure secondary to congestive heart failure chronic systolic function EF of around 40 to 45% patient on IV Lasix which will be continued with strict I's and O's. Patient also has mild pulmonary hypertension with severely dilated LV and severe tricuspid regurgitation -Respiratory acidosis secondary to CO2 retention 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 -History of CVA in the past -Seizure disorder for which patient is on Keppra which will be resumed -Hyperlipidemia -Obesity and sleep apnea -Chronic medical debility -Foot drop -Peripheral neuropathy for which patient is on gabapentin which will be resumed DVT prophylaxis: Lovenox Past Medical History Past Medical History: Atrial Fibrillation, Coronary Artery Disease (CAD), CVA/TIA, Hyperlipidemia, Pneumonia, Seizure Disorder Additional Past Medical History / Comment(s): Hisotry: FALLS, CONCUSSION, STROKE AFFECTED LT SIDE UNABLE TO USE LT ARM AND extensive foot drop. Left shoulder fracture 2016, 2018.bakers cyst behind rt knee. History of Any Multi-Drug Resistant Organisms: None Reported Past Surgical History: Appendectomy, Cardiac Valve Replacement, Cholecystectomy, Heart Catheterization, Tubal Ligation Additional Past Surgical History / Comment(s): COLONOSCOPY, STATED HAD A "MITRAL VALVE REPLACEMENT" Past Anesthesia/Blood Transfusion Reactions: No Reported Reaction Past Psychological History: Depression Smoking Status: Never smoker Past Alcohol Use History: None Reported Past Drug Use History: None Reported - Past Family History Father Family Medical History: Cancer Additional Family Medical History / Comment(s): BRAIN AND LUNG CANCER Mother Family Medical History: Coronary Artery Disease (CAD), Dementia Additional Family Medical History / Comment(s): PT COULDN'T REMEMBER WHAT MOM FROM Medications and Allergies Home Medications Medication Instructions Recorded Confirmed Type Atorvastatin Calcium [Lipitor] 40 mg PO HS 09/06/15 12/13/23 History levETIRAcetam 1,000 mg PO BID 11/23/16 12/13/23 History Sennosides [Senna] 8.6 mg PO BID 10/01/17 12/13/23 History Baclofen 5 mg PO BID 03/03/21 12/13/23 History Metoprolol Tartrate [Lopressor] 12.5 mg PO BID 03/03/21 12/13/23 History Sertraline [Zoloft] 50 mg PO DAILY 03/03/21 12/13/23 History Potassium Chloride ER [K-Dur 20] 20 meq PO BID #0 03/05/21 12/13/23 Rx Morphine Sulfate ER [Ms Contin] 30 mg PO HS #3 tab 06/23/22 12/13/23 Rx Betamethasone Dipropionate 1 applic TOPICAL Q24H PRN 12/13/23 12/13/23 History [Betamethasone Dipropionate 0.05% Cream] Bumetanide [BUMEX] 2 mg PO BID 12/13/23 12/13/23 History Cetirizine HCl [Zyrtec] 10 mg PO DAILY 12/13/23 12/13/23 History Docusate Sodium [Dok] 100 mg PO DAILY 12/13/23 12/13/23 History Docusate [Colace] 100 mg PO BID PRN 12/13/23 12/13/23 History Gabapentin 600 mg PO BID 12/13/23 12/13/23 History Miconazole Nitrate [Lotrimin AF 1 applic TOPICAL BID 12/13/23 12/13/23 History Powder] Midodrine [ProAmatine] 5 mg PO TID 12/13/23 12/13/23 History Naloxone HCl 0.4 mg IM DIRECTED PRN 12/13/23 12/13/23 History Naloxone HCl [Narcan] 4 mg NASAL DIRECTED PRN 12/13/23 12/13/23 History Pramipexole [Mirapex] 0.5 mg PO HS 12/13/23 12/13/23 History Spironolactone [Aldactone] 50 mg PO DAILY 12/13/23 12/13/23 History Warfarin Sodium 2 mg PO HS 12/13/23 12/13/23 History polyethylene glycoL 3350 [Miralax] 17 gm PO DAILY 12/13/23 12/13/23 History traMADol HCl [Ultram] 50 mg PO BID PRN 12/13/23 12/13/23 History Allergies Allergy/AdvReac Type Severity Reaction Status Date / Time codeine Allergy Chest Pain Verified 12/13/23 03:19 lorazepam [From Ativan] AdvReac GIVES THE Verified 12/13/23 03:19 OPPOSITE EFFECT Physical Exam Vitals: Vital Signs Temp Pulse Resp BP Pulse Ox FiO2 12/13/23 11:30 85 16 106/69 95 12/13/23 10:30 85 18 93/77 97 12/13/23 08:55 40 12/13/23 08:04 97.8 F 96 16 103/84 92 L 12/13/23 06:00 85 25 H 112/61 92 L 12/13/23 04:49 40 12/13/23 04:19 100 26 H 118/71 97 12/13/23 03:09 98.2 F 105 H 30 H 135/93 99 Intake and Output 12/12/23 12/13/23 12/13/23 22:59 06:59 14:59 Other: Weight 147.418 kg Results CBC & Chem 7: 12/13/23 03:15 12/13/23 03:15 Labs: Abnormal Lab Results - Last 24 Hours (Table) 12/13/23 12/13/23 12/13/23 Range/Units 03:15 03:15 03:15 RBC 3.32 L (3.80-5.40) m/uL Hgb 10.5 L (11.4-16.0) gm/dL MCV 103.9 H (80.0-100.0) fL MCHC 30.4 L (31.0-37.0) g/dL PT 17.3 H (10.0-12.5) sec INR 1.7 H (<1.2) VBG pH (7.31-7.41) VBG pCO2 (37-51) mmHg VBG HCO3 (24-28) mmol/L Sodium 136 L (137-145) mmol/L Chloride 91 L (98-107) mmol/L Carbon Dioxide 41 H* (22-30) mmol/L Glucose 159 H (74-99) mg/dL Calcium 8.2 L (8.4-10.2) mg/dL AST 37 H (14-36) U/L Alkaline Phosphatase 178 H (38-126) U/L 12/13/23 Range/Units 03:38 RBC (3.80-5.40) m/uL Hgb (11.4-16.0) gm/dL MCV (80.0-100.0) fL MCHC (31.0-37.0) g/dL PT (10.0-12.5) sec INR (<1.2) VBG pH 7.30 L (7.31-7.41) VBG pCO2 98 H* (37-51) mmHg VBG HCO3 48 H (24-28) mmol/L Sodium (137-145) mmol/L Chloride (98-107) mmol/L Carbon Dioxide (22-30) mmol/L Glucose (74-99) mg/dL Calcium (8.4-10.2) mg/dL AST (14-36) U/L Alkaline Phosphatase (38-126) U/L
[2023-12-13] MEDS: IPRATROPIUM-ALBUTEROL 3 ML NEB INHALATION SCH (12:00)
[2023-12-13] MEDS ORDERED: methylPREDNISolone SOD SUCCI 125 MG/2 ML VIAL IV SCH (12:00)
[2023-12-13] MEDS: ALBUTEROL NEBULIZED 2.5 MG/3 ML INHALATION STA (12:10)
[2023-12-13] MEDS: IPRATROPIUM 0.5 MG/2.5 ML NEBU INHALATION STA (12:10)
[2023-12-13] MEDS ORDERED: HEPARIN SODIUM 1,000 UN/ML (10ML VL) IV PRN (13:01)
[2023-12-13] MEDS: HEPARIN SODIUM 1,000 UN/ML (10ML VL) IV ONE (13:24)
[2023-12-13] MEDS: HEPARIN SOD,PORK IN 0.45% NACL 25,000 UNIT in 0.45% NACL 1 250ML.BAG IV SCH (13:25)
[2023-12-13] MEDS: levETIRAcetam 500 MG TAB PO SCH (13:49)
--- NOTE | 2023-12-13 14:22 | P.CRDCN ---
History of Present Illness History of present illness: HISTORY OF PRESENT ILLNESS: This is a 73-year-old female with a past medical history significant for congestive heart failure, chronic atrial fibrillation, mechanical mitral valve replacement, pulmonary hypertension, CVA, severe tricuspid regurgitation, cardiomyopathy, chronic lower extremity edema, and debility bedbound at baseline. Patient follows in the office with Dr. Escamilla. We have been asked to see the patient in consultation for congestive heart failure. Patient examined a t the bedside in the emergency room. Patient resides at [facility]. Per nursing, patient's daughter reported that she has been confused over the past week and they have been wanting to bring her to the hospital. Patient is currently on BiPAP. Patient currently denies shortness of breath. She denies chest pain or pressure. She states the staff at [facility] noticed that she had increased lower extremity edema. DIAGNOSTICS: - EKG reveals fibrillation with heart rate of 104. No signs of acute ischemia. - Chest xray prominent lung markings and lower lung opacities may represent pulmonary vascular congestion/edema - Laboratory data: WBC 6.7. Hemoglobin 10.5. Platelet count 183. Sodium 136. Potassium 4.3. BUN 16. Creatinine 0.66. Troponin negative x 2. proBNP 1760. - Current home cardiac medications include Lipitor 40 mg at night, Bumex 2 mg twice a day, metoprolol tartrate 12.5 mg twice a day, midodrine 5 mg 3 times a day, Aldactone 50 mg daily, warfarin 2 mg at night - Most recent echocardiogram obtained in 07/2023 revealed ejection fraction 40 to 45%, mild pulmonary hypertension, normally functioning mechanical mitral valve, mild pulm and hypertension, severe tricuspid regurgitation - Cardiac catheterization history: Unknown REVIEW OF SYSTEMS: At the time of my exam: CONSTITUTIONAL: Denies fever or chills. HEENT: Denies blurred vision, vision changes, or eye pain. Denies hemoptysis CARDIOVASCULAR: Denies chest pain. Denies orthopnea. Denies PND. Denies pa lpitations RESPIRATORY: Denies shortness of breath. GASTROINTESTINAL: Denies abdominal pain. Denies nausea or vomiting. HEMATOLOGIC: Denies bleeding disorders. GENITOURINARY: Denies any blood in urine. SKIN: Denies pruitis. Denies rash. PHYSICAL EXAM: VITAL SIGNS: Reviewed. GENERAL: Well-developed in no acute distress. HEENT: Head is normocephalic. Pupils are equal, round. Sclerae anicteric. Mucous membranes of the mouth are moist. Neck supple. No JVD or thyromegaly LUNGS: Respirations even and unlabored. Lungs essentially clear to auscultation bilaterally. HEART: Irregular rate and rhythm. S1 and S2 heard. Systolic murmur noted with mechanical click. ABDOMEN: Soft. Nondistended. Nontender. EXTREMITIES: Normal range of motion. No clubbing or cyanosis. Peripheral pulses intact. Bilateral lower extremity edema noted NEUROLOGIC: Awake and alert. Oriented x 3. ASSESSMENT: Altered mental status, etiology unclear Acute hypoxic and hypercapnic respiratory failure, currently on BiPAP Acute on chronic heart failure with mildly reduced EF 40 to 45%, mild exacerbation Permanent atrial fibrillation with controlled ventricular rate History of mechanical mitral valve replacement Subtherapeutic INR, 1.7 on admission Mild pulmonary pretension, per echo 07/2023 Severe tricuspid regurgitation History of CVA Chronic lower extremity edema Debility, bedbound at baseline PLAN: Obtain 2D echo to assess cardiac structure and function Continue IV Lasix for today. Decrease dose to 40 mg every 12 hours. Likely transition to oral diuretics tomorrow Daily weights, accurate intake and output, and monitoring of kidney function Continue Coumadin. Monitor INR. Begin IV heparin until INR is therapeutic between 2.5 and 3.5 due to mechanical mitral valve Continue additional cardiac medications Further recommendations pending patient course Nurse practitioner note has been reviewed by physician. Signing provider agrees with the documented findings, assessment, and plan of care documented by [employer] as a scribe. 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 Left shoulder fr acture 2016, 2018.bakers cyst behind rt knee. History of Any Multi-Drug Resistant Organisms: None Reported Past Surgical History: Appendectomy, Cardiac Valve Replacement, Cholecystectomy, Heart Catheterization, Tubal Ligation Additional Past Surgical History / Comment(s): COLONOSCOPY, STATED HAD A "MITRAL VALVE REPLACEMENT" Past Anesthesia/Blood Transfusion Reactions: No Reported Reaction Past Psychological History: Depression Smoking Status: Never smoker Past Alcohol Use History: None Reported Past Drug Use History: None Reported - Past Family History Father Family Medical History: Cancer Additional Family Medical History / Comment(s): BRAIN AND LUNG CANCER Mother Family Medical History: Coronary Artery Disease (CAD), Dementia Additional Family Medical History / Comment(s): PT COULDN'T REMEMBER WHAT MOM FROM Medications and Allergies Home Medications Medication Instructions Recorded Confirmed Type Atorvastatin Calcium [Lipitor] 40 mg PO HS 09/06/15 12/13/23 History levETIRAcetam 1,000 mg PO BID 11/23/16 12/13/23 History Sennosides [Senna] 8.6 mg PO BID 10/01/17 12/13/23 History Baclofen 5 mg PO BID 03/03/21 12/13/23 History Metoprolol Tartrate [Lopressor] 12.5 mg PO BID 03/03/21 12/13/23 History Sertraline [Zoloft] 50 mg PO DAILY 03/03/21 12/13/23 History Potassium Chloride ER [K-Dur 20] 20 meq PO BID #0 03/05/21 12/13/23 Rx Morphine Sulfate ER [Ms Contin] 30 mg PO HS #3 tab 06/23/22 12/13/23 Rx Betamethasone Dipropionate 1 applic TOPICAL Q24H PRN 12/13/23 12/13/23 History [Betamethasone Dipropionate 0.05% Cream] Bumetanide [BUMEX] 2 mg PO BID 12/13/23 12/13/23 History Cetirizine HCl [Zyrtec] 10 mg PO DAILY 12/13/23 12/13/23 History Docusate Sodium [Dok] 100 mg PO DAILY 12/13/23 12/13/23 History Docusate [Colace] 100 mg PO BID PRN 12/13/23 12/13/23 History Gabapentin 600 mg PO BID 12/13/23 12/13/23 History Miconazole Nitrate [Lotrimin AF 1 applic TOPICAL BID 12/13/23 12/13/23 History Powder] Midodrine [ProAmatine] 5 mg PO TID 12/13/23 12/13/23 History Naloxone HCl 0.4 mg IM DIRECTED PRN 12/13/23 12/13/23 History Naloxone HCl [Narcan] 4 mg NASAL DIRECTED PRN 12/13/23 12/13/23 History Pramipexole [Mirapex] 0.5 mg PO HS 12/13/23 12/13/23 History Spironolactone [Aldactone] 50 mg PO DAILY 12/13/23 12/13/23 History Warfarin Sodium 2 mg PO HS 12/13/23 12/13/23 History polyethylene glycoL 3350 [Miralax] 17 gm PO DAILY 12/13/23 12/13/23 History traMADol HCl [Ultram] 50 mg PO BID PRN 12/13/23 12/13/23 History Allergies Allergy/AdvReac Type Severity Reaction Status Date / Time codeine Allergy Chest Pain Verified 12/13/23 03:19 lorazepam [From Ativan] AdvReac GIVES THE Verified 12/13/23 03:19 OPPOSITE EFFECT Physical Exam Vitals: Vital Signs Temp Pulse Resp BP Pulse Ox FiO2 12/13/23 13:17 88 18 109/54 95 12/13/23 12:12 88 12/13/23 12:01 80 40 12/13/23 11:30 85 16 106/69 95 12/13/23 10:30 85 18 93/77 97 12/13/23 08:55 40 12/13/23 08:04 97.8 F 96 16 103/84 92 L 12/13/23 06:00 85 25 H 112/61 92 L 12/13/23 04:49 40 12/13/23 04:19 100 26 H 118/71 97 12/13/23 03:09 98.2 F 105 H 30 H 135/93 99 Intake and Output 12/12/23 12/13/23 12/13/23 22:59 06:59 14:59 Other: Weight 147.418 kg Results 12/13/23 03:15 12/13/23 03:15 Cardiac Enzymes 12/13/23 12/13/23 12/13/23 Range/Units 03:15 03:15 11:27 AST 37 H (14-36) U/L Troponin I 0.012 0.015 (0.000-0.034) ng/mL Coagulation 12/13/23 Range/Units 03:15 PT 17.3 H (10.0-12.5) sec APTT 26.1 (22.0-30.0) sec CBC 12/13/23 Range/Units 03:15 WBC 6.7 (3.8-10.6) k/uL RBC 3.32 L (3.80-5.40) m/uL Hgb 10.5 L (11.4-16.0) gm/dL Hct 34.5 (34.0-46.0) % Plt Count 183 (150-450) k/uL Comprehensive Metabolic Panel 12/13/23 Range/Units 03:15 Sodium 136 L (137-145) mmol/L Potassium 4.3 (3.5-5.1) mmol/L Chloride 91 L (98-107) mmol/L Carbon Dioxide 41 H* (22-30) mmol/L BUN 16 (7-17) mg/dL Creatinine 0.66 (0.52-1.04) mg/dL Glucose 159 H (74-99) mg/dL Calcium 8.2 L (8.4-10.2) mg/dL AST 37 H (14-36) U/L ALT 10 (4-34) U/L Alkaline Phosphatase 178 H (38-126) U/L Total Protein 7.4 (6.3-8.2) g/dL Albumin 3.5 (3.5-5.0) g/dL Current Medications Generic Name Dose Route Start Last Admin Trade Name Freq PRN Reason Stop Dose Admin Albuterol/Ipratropium 3 ml 12/13/23 12:00 12/13/23 12:00 Ipratropium-Albuterol 3 Ml Neb INHALATION 3 ml RT-QID [facility] Administration Albuterol/Ipratropium 3 ml 12/13/23 10:39 Ipratropium-Albuterol 3 Ml Neb INHALATION RT-Q2H PRN Shortness Of Breath Or Wheezing Atorvastatin Calcium 40 mg 12/13/23 21:00 Atorvastatin 40 Mg Tab PO HS [facility] Betamethasone Dipropionate 1 applic 12/13/23 11:40 Betamethasone Dipropionate 0.05% Cream 15 Gm Tube TOPICAL Q24H PRN plaque psoriasis Protocol Docusate Sodium 100 mg 12/13/23 11:40 Docusate 100 Mg Cap PO BID PRN Constipation Docusate Sodium 100 mg 12/14/23 09:00 Docusate 100 Mg Cap PO DAILY [facility] Furosemide 40 mg 12/13/23 21:00 Furosemide 10 Mg/Ml 4 Ml Vial IV Q12HR [facility] Gabapentin 600 mg 12/13/23 21:00 Gabapentin 300 Mg Cap PO BID [facility] Heparin Sodium (Porcine) 0 unit 12/13/23 13:01 Heparin Sodium 1,000 Un/Ml (10ml Vl) IV PER PROTOCOL PRN Low PTT Protocol Heparin Sodium/Sodium Chloride 250 mls @ 10.001 mls/hr 12/13/23 13:15 12/13/23 13:25 25,000 unit/ Sodium Chloride IV 6.784 units/kg/hr .Q24H [facility] 10.001 mls/hr Administration Protocol 6.784 UNITS/KG/HR Levetiracetam 1,000 mg 12/13/23 12:00 12/13/23 13:49 Levetiracetam 500 Mg Tab PO 1,000 mg BID [facility] Administration Loratadine 10 mg 12/14/23 09:00 Loratadine 10 Mg Tab PO DAILY [facility] Methylprednisolone Sodium Succinate 40 mg 12/13/23 21:00 Methylprednisolone Sod Succi 40 Mg/Ml 1 Ml Vial IV BID [facility] Metoprolol Tartrate 12.5 mg 12/13/23 21:00 Metoprolol Tartrate 12.5 Mg Tab PO BID [facility] Miscellaneous Information 1 each 12/13/23 11:41 Warfarin Per Pharmacy MISCELLANE DIRECTED PRN Per Protocol Protocol Naloxone HCl 0.2 mg 12/13/23 10:39 Naloxone 0.4 Mg/Ml 1 Ml Vial IVP Q2M PRN Opioid Reversal Nitroglycerin 1 inch 12/14/23 13:00 Nitroglycerin Oint 1 Inch/Gm Packet TOPICAL QID [facility] Nystatin 1 applic 12/13/23 21:00 Nystatin 100,000 Unit/Gm Powd 15 Gm TOPICAL BID [facility] Polyethylene Glycol 17 gm 12/14/23 09:00 Polyethylene Glycol 3350 17 Gm Powd.Pack PO DAILY [facility] Pramipexole Dihydrochloride 0.5 mg 12/13/23 21:00 Pramipexole 0.5 Mg Tab PO HS [facility] Senna 8.6 mg 12/13/23 21:00 Sennosides 8.6 Mg Tab PO BID [facility] Sertraline HCl 50 mg 12/14/23 09:00 Sertraline 50 Mg Tab PO DAILY [facility] Spironolactone 50 mg 12/14/23 09:00 Spironolactone 25 Mg Tab PO DAILY [facility] Tramadol HCl 50 mg 12/13/23 11:40 Tramadol 50 Mg Tab PO BID PRN Moderate to Severe Pain (4-10) Warfarin Sodium 2 mg 12/13/23 18:00 Warfarin 2 Mg Tab PO 12/13/23 18:01 ONCE@1800 ONE Protocol Intake and Output 12/12/23 12/13/23 12/13/23 22:59 06:59 14:59 Other: Weight 147.418 kg 12/13/23 03:15 12/13/23 03:15
--- NOTE | 2023-12-13 15:24 | P.CNPUL ---
History of Present Illness Consult date: 12/13/23 Requesting physician: Jerri Hodgson Reason for consult: dyspnea, COPD, hypoxemia, other Chief complaint: Shortness of breath. History of present illness: Pulmonary consult dated December 13, 2023. 73-year-old female originally seen by Dr. Carroll in the emergency room, and then followed by Dr. Cárdenas afterwards. This is a 73-year-old female who presented with shortness of breath and difficulty breathing. The patient was seen in the emergency department, on December 12. The patient was very confused when she first came in, and was a very poor historian. The patient was initially placed on BiPAP, with settings of 16/6, and 40%. She remains on BiPAP. Patient has a history of atrial fibrillation, coronary disease, CVA, hyperlipidemia, pneumonia, and seizure disorder. The patient apparently also has a previous history of either mitral valve replacement or repair. She is a lifelong non- smoker. Laboratory data includes a white count 6.7, hemoglobin 10.5, hematocrit 34.5, and a platelet count of 103,000. PT was 17.3 with an INR of 1.7. Venous blood gas showed a pCO2 of 98, and a pH of 7.3. Sodium 136, potassium 4.3, chlorides 91, CO2 41, BUN and creatinine were 16 and 0.66. Glucose 159. Calcium 8.2. Troponin was 0.012. N-terminal proBNP was 1760. Chest x-ray showed sternal wires consistent with previous open heart surgery. Cardiac silhouette is enlarged. Costophrenic angles are blunted. This x-ray in my opinion is consistent with pulmonary vascular congestion. EKG shows evidence of atrial fibrillation. Review of Systems REVIEW OF SYSTEMS: CONSTITUTIONAL: Weakness. NEUROLOGIC: Confusion. HEENT: [ Negative.] CARDIAC: [Negative.] PULMONARY: Shortness of breath. GI: [Negative.] : [Negative.] RHEUMATOLOGIC: [ Negative.] IMMUNOLOGIC: [ Negative.] ENDOCRINE: [Negative. 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 Left shoulder fracture 2016, 2018.bakers cyst behind rt knee. History of Any Multi-Drug Resistant Organisms: None Reported Past Surgical History: Appendectomy, Cardiac Valve Replacement, Cholecystectomy, Heart Catheterization, Tubal Ligation Additional Past Surgical History / Comment(s): COLONOSCOPY, STATED HAD A "MITRAL VALVE REPLACEMENT" Past Anesthesia/Blood Transfusion Reactions: No Reported Reaction Past Psychological History: Depression Smoking Status: Never smoker Past Alcohol Use History: None Reported Past Drug Use History: None Reported - Past Family History Father Family Medical History: Cancer Additional Family Medical History / Comment(s): BRAIN AND LUNG CANCER Mother Family Medical History: Coronary Artery Disease (CAD), Dementia Additional Family Medical History / Comment(s): PT COULDN'T REMEMBER WHAT MOM FROM Medications and Allergies Home Medications Medication Instructions Recorded Confirmed Type Atorvastatin Calcium [Lipitor] 40 mg PO HS 09/06/15 12/13/23 History levETIRAcetam 1,000 mg PO BID 11/23/16 12/13/23 History Sennosides [Senna] 8.6 mg PO BID 10/01/17 12/13/23 History Baclofen 5 mg PO BID 03/03/21 12/13/23 History Metoprolol Tartrate [Lopressor] 12.5 mg PO BID 03/03/21 12/13/23 History Sertraline [Zoloft] 50 mg PO DAILY 03/03/21 12/13/23 History Potassium Chloride ER [K-Dur 20] 20 meq PO BID #0 03/05/21 12/13/23 Rx Morphine Sulfate ER [Ms Contin] 30 mg PO HS #3 tab 06/23/22 12/13/23 Rx Betamethasone Dipropionate 1 applic TOPICAL Q24H PRN 12/13/23 12/13/23 History [Betamethasone Dipropionate 0.05% Cream] Bumetanide [BUMEX] 2 mg PO BID 12/13/23 12/13/23 History Cetirizine HCl [Zyrtec] 10 mg PO DAILY 12/13/23 12/13/23 History Docusate Sodium [Dok] 100 mg PO DAILY 12/13/23 12/13/23 History Docusate [Colace] 100 mg PO BID PRN 12/13/23 12/13/23 History Gabapentin 600 mg PO BID 12/13/23 12/13/23 History Miconazole Nitrate [Lotrimin AF 1 applic TOPICAL BID 12/13/23 12/13/23 History Powder] Midodrine [ProAmatine] 5 mg PO TID 12/13/23 12/13/23 History Naloxone HCl 0.4 mg IM DIRECTED PRN 12/13/23 12/13/23 History Naloxone HCl [Narcan] 4 mg NASAL DIRECTED PRN 12/13/23 12/13/23 History Pramipexole [Mirapex] 0.5 mg PO HS 12/13/23 12/13/23 History Spironolactone [Aldactone] 50 mg PO DAILY 12/13/23 12/13/23 History Warfarin Sodium 2 mg PO HS 12/13/23 12/13/23 History polyethylene glycoL 3350 [Miralax] 17 gm PO DAILY 12/13/23 12/13/23 History traMADol HCl [Ultram] 50 mg PO BID PRN 12/13/23 12/13/23 History Allergies Allergy/AdvReac Type Severity Reaction Status Date / Time codeine Allergy Chest Pain Verified 12/13/23 03:19 lorazepam [From Ativan] AdvReac GIVES THE Verified 12/13/23 03:19 OPPOSITE EFFECT Physical Exam Osteopathic Statement: *. No significant issues noted on an osteopathic structural exam other than those noted in the History and Physical/Consult. Vitals: Vital Signs Temp Pulse Resp BP Pulse Ox FiO2 12/13/23 13:17 88 18 109/54 95 12/13/23 12:12 88 12/13/23 12:01 80 40 12/13/23 11:30 85 16 106/69 95 12/13/23 10:30 85 18 93/77 97 12/13/23 08:55 40 12/13/23 08:04 97.8 F 96 16 103/84 92 L 12/13/23 06:00 85 25 H 112/61 92 L 12/13/23 04:49 40 12/13/23 04:19 100 26 H 118/71 97 12/13/23 03:09 98.2 F 105 H 30 H 135/93 99 Intake and Output 12/13/23 12/13/23 12/13/23 06:59 14:59 22:59 Other: Weight 147.418 kg No acute distress, somnolent, with BiPAP mask in place. The patient is a very poor historian. HEENT examination is grossly unremarkable. Neck supple. Full range of motion. No adenopathy thyromegaly or neck vein distention. Cardiovascular examination reveals an irregular rhythm and rate. S1-S2 normal. No S3 or S4. No discernible murmur noted. Heart sounds are distant. Lungs reveal diminished bilateral breath sounds. Scattered rhonchi. Scattered crackles are also noted. No wheezes. Breath sounds are equal. Abdomen obese, but soft. No masses or tenderness. Extremities are intact. No cyanosis or clubbing. Lower extremity edema noted. Skin is without rash or lesion. Neurologic examination is brief but nonfocal. Patient is somnolent. Results - Laboratory Findings CBC and BMP: 12/13/23 03:15 12/13/23 03:15 PT/INR, D-dimer PT 17.3 sec (10.0-12.5) H 12/13/23 03:15 INR 1.7 (<1.2) H 12/13/23 03:15 Abnormal lab findings: Abnormal Labs 12/13/23 12/13/23 12/13/23 03:15 03:15 03:15 RBC 3.32 L Hgb 10.5 L MCV 103.9 H MCHC 30.4 L PT 17.3 H INR 1.7 H VBG pH VBG pCO2 VBG HCO3 Sodium 136 L Chloride 91 L Carbon Dioxide 41 H* Glucose 159 H Calcium 8.2 L AST 37 H Alkaline Phosphatase 178 H 12/13/23 03:38 RBC Hgb MCV MCHC PT INR VBG pH 7.30 L VBG pCO2 98 H* VBG HCO3 48 H Sodium Chloride Carbon Dioxide Glucose Calcium AST Alkaline Phosphatase - Diagnostic Findings Chest x-ray: image reviewed Assessment and Plan Assessment: Acute on chronic hypoxemic and hypercapnic respiratory failure, likely multifactorial, in part related to congestive heart failure, as well as possible sleep apnea syndrome/pickwickian syndrome. History of systolic congestive heart failure, with an ejection fraction of 40 to 45%. Hypercarbic encephalopathy. History of atrial fibrillation with a relatively controlled ventricular response rate. History of mitral valve replacement. History of hyperlipidemia. History of CVA. History of tricuspid regurgitation. History of seizure disorder. Plan: Plan dated December 13, 2023. The patient is seen in the emergency department, room 5. The patient is maintained on BiPAP, with settings of 16/6, and 40%. The patient does have acute on chronic hypercapnic respiratory failure, and encephalopathy, secondary to both hypoxemia, and hypercapnia. The patient currently is on a heparin drip. She has a history of chronic atrial fibrillation. She is quite somnolent and lethargic, and obtunded. Very poor historian. Saturation should be maintained between 88 and 92%. The patient is a lifelong non-smoker. Labs, x-rays, medications are reviewed. The patient may have some underlying sleep apnea syndrome, and/or pickwickian syndrome. Time with Patient: Greater than 30
[2023-12-13] MEDS: WARFARIN 2 MG TAB PO ONE (18:50)
[2023-12-13 19:29] LABS: Basophils % (A) 0 %; Eosinophils # (A) 0.1 k/uL (0-0.7); Eosinophils % (A) 1 %; HCT 35.1 % (34.0-46.0); Hypochromasia Marked; Lymphocytes # (A) 0.5 k/uL (1.0-4.8); Lymphocytes % (A) 5 %; MCH 32.4 pg (25.0-35.0); MCHC 31.3 g/dL (31.0-37.0); MCV 103.5 fL (80.0-100.0); Macrocytosis Slight; Mean Platelet Volume 7.9; Monocytes % (A) 10 %; Neutrophils # (A) 8.3 k/uL (1.3-7.7); Neutrophils % (A) 84 %; Platelet Count 130 k/uL (150-450); RBC 3.39 m/uL (3.80-5.40); RDW 13.8 % (11.5-15.5); WBC 9.9 k/uL (3.8-10.6)
[2023-12-13 19:42] LABS: INR 1.8 (<1.2); Partial Thromboplastin Time 62.9 sec (22.0-30.0); Prothrombin Time 18.4 sec (10.0-12.5)
[2023-12-13] MEDS: METOPROLOL TARTRATE 12.5 MG TAB PO SCH (20:31)
[2023-12-13] MEDS: ATORVASTATIN 40 MG TAB PO SCH (20:31)
[2023-12-13] MEDS: GABAPENTIN 300 MG CAP PO SCH (20:31)
[2023-12-13] MEDS: SENNOSIDES 8.6 MG TAB PO SCH (20:31)
[2023-12-13] MEDS: PRAMIPEXOLE 0.5 MG TAB PO SCH (20:41)
[2023-12-13] MEDS: NYSTATIN 100,000 UNIT/GM POWD 15 GM TOPICAL SCH (20:41)
[2023-12-13] MEDS ORDERED: methylPREDNISolone SOD SUCCI 40 MG/ML 1 ML VIAL IV SCH (21:00)
[2023-12-14] MEDS: traMADol 50 MG TAB PO PRN (06:45)
[2023-12-14 08:28] LABS: Basophils % (A) 0 %; Eosinophils % (A) 0 %; HCT 30.7 % (34.0-46.0); HGB 9.6 gm/dL (11.4-16.0); Hypochromasia Slight; Lymphocytes # (A) 0.5 k/uL (1.0-4.8); Lymphocytes % (A) 8 %; MCH 31.9 pg (25.0-35.0); MCHC 31.3 g/dL (31.0-37.0); Macrocytosis Slight; Mean Platelet Volume 8.5; Monocytes # (A) 0.4 k/uL (0-1.0); Monocytes % (A) 8 %; Neutrophils # (A) 4.6 k/uL (1.3-7.7); Neutrophils % (A) 82 %; Platelet Count 146 k/uL (150-450); RBC 3.01 m/uL (3.80-5.40); RDW 14.3 % (11.5-15.5); WBC 5.6 k/uL (3.8-10.6)
[2023-12-14 08:44] LABS: INR 2.3 (<1.2); Partial Thromboplastin Time 67.4 sec (22.0-30.0); Prothrombin Time 22.7 sec (10.0-12.5)
[2023-12-14 08:49] LABS: African American GFR (CKD) >90 (>60 ml/min/1.73 sqM); Blood Urea Nitrogen 18 mg/dL (7-17); Chloride 88 mmol/L (98-107); Glucose 133 mg/dL (74-99); Magnesium 2.2 mg/dL (1.6-2.3); Non-African American GFR(CKD) 89 (>60 ml/min/1.73 sqM); Potassium 3.7 mmol/L (3.5-5.1); Sodium 136 mmol/L (137-145)
[2023-12-14] MEDS ORDERED: ASPIRIN 325 MG TAB PO SCH (09:00)
[2023-12-14 09:38] LABS: Carbon Dioxide 46 mmol/L (22-30)
[2023-12-14 09:39] LABS: Anion Gap 2 mmol/L
[2023-12-14] MEDS: SERTRALINE 50 MG TAB PO SCH (10:11)
[2023-12-14] MEDS: SPIRONOLACTONE 25 MG TAB PO SCH (10:11)
[2023-12-14] MEDS: polyethylene glycoL 3350 17 GM POWD.PACK PO SCH (10:11)
[2023-12-14] MEDS: DOCUSATE 100 MG CAP PO SCH (10:11)
[2023-12-14] MEDS: LORATADINE 10 MG TAB PO SCH (10:11)
--- NOTE | 2023-12-14 11:20 | CA ---
Transthoracic Echo Report Name: Asha Duncan Age: 73 Gender: F : 1950 Exam Date: 12/13/2023 14:14 Exam Location: [facility] Ht (in): 66 Wt (lb): 325 Ordering Physician: Ronan Cárdenas DO Attending/Referring Phys: [employer] Purnima Anguiano RDCS Procedure CPT: Indications: Heart failure Cardiac Hx: Technical Quality: Fair Contrast 1: Total Dose (mL): Contrast 2: Total Dose (mL): MEASUREMENTS (Male / Female) Normal Values 2D ECHO LV Diastolic Diameter PLAX 6.6 cm 4.2 - 5.9 / 3.9 - 5.3 cm LV Systolic Diameter PLAX 5.7 cm IVS Diastolic Thickness 1.0 cm 0.6 - 1.0 / 0.6 - 0.9 cm LVPW Diastolic Thickness 1.2 cm 0.6 - 1.0 / 0.6 - 0.9 cm LV Relative Wall Thickness 0.3 RV Internal Dim ED PLAX 4.8 cm M-MODE Aortic Root Diameter MM 3.3 cm LA Systolic Diameter MM 7.5 cm LA Ao Ratio MM 2.3 AV Cusp Separation MM 1.7 cm DOPPLER AV Peak Velocity 156.0 cm/s AV Peak Gradient 9.7 mmHg AV Mean Velocity 87.4 cm/s AV Mean Gradient 3.8 mmHg AV Velocity Time Integral 26.9 cm LVOT Peak Velocity 66.5 cm/s LVOT Peak Gradient 1.8 mmHg MV Peak Velocity 175.4 cm/s MV Peak Gradient 12.3 mmHg MV Mean Velocity 72.9 cm/s MV Mean Gradient 3.3 mmHg MV Velocity Time Integral 45.5 cm TR Peak Velocity 284.4 cm/s TR Peak Gradient 32.3 mmHg Right Ventricular Systolic Press 37.0 mmHg FINDINGS Left Ventricle Mildly increased posterior wall thickness. Severely increased left ventricular diastolic diameter. Reduced global left ventricular systolic function. Left ventricular ejection fraction is estimated at 40- %. Right Ventricle Severe right ventricular dilatation. Mild pulmonary hypertension. Right Atrium Severe right atrial dilatation. Left Atrium Severe left atrial dilatation. Mitral Valve Mechanical prosthetic mitral valve. Otherwise prosthetic mitral valve appears to function normally. Aortic Valve No aortic valve stenosis or regurgitation. Tricuspid Valve Severe tricuspid regurgitation. Pulmonic Valve Mild pulmonic regurgitation. Pericardium No pericardial effusion. Aorta Normal size aortic root and proximal ascending aorta. CONCLUSIONS Technically suboptimal study secondary to poor echo windows Dilated left ventricle with moderate LV dysfunction ejection fraction is 40% Severely dilated right atrium left atrium and right ventricle Mechanical mitral valve study quality is suboptimal for optimal evaluation of the prosthetic valve Severe tricuspid regurgitation Previewed by: Dr. Jeffery Nogueira MD (Electronically Signed) Final Date: 14 December 2023 11:19
--- NOTE | 2023-12-14 12:37 | P.PN ---
Subjective Progress Note Date: 12/14/23 Principal diagnosis: Heart failure. Pulmonary consult dated December 13, 2023. 73-year-old female originally seen by Dr. Carroll in the emergency room, and then followed by Dr. Cárdenas afterwards. This is a 73-year-old female who presented with shortness of breath and difficulty breathing. The patient was seen in the emergency department, on December 12. The patient was very confused when she first came in, and was a very poor historian. The patient was initially placed on BiPAP, with settings of 16/6, and 40%. She remains on BiPAP. Patient has a history of atrial fibrillation, coronary disease, CVA, hyperlipidemia, pneumonia, and seizure disorder. The patient apparently also has a previous history of either mitral valve replacement or repair. She is a lifelong non- smoker. Laboratory data includes a white count 6.7, hemoglobin 10.5, hematocrit 34.5, and a platelet count of 103,000. PT was 17.3 with an INR of 1.7. Venous blood gas showed a pCO2 of 98, and a pH of 7.3. Sodium 136, potassium 4.3, chlorides 91, CO2 41, BUN and creatinine were 16 and 0.66. Glucose 159. Calcium 8.2. Troponin was 0.012. N-terminal proBNP was 1760. Chest x-ray showed sternal wires consistent with previous open heart surgery. Cardiac silhouette is enlarged. Costophrenic angles are blunted. This x-ray in my opinion is consistent with pulmonary vascular congestion. EKG shows evidence of atrial fibrillation. Progress note dated December 14, 2023. 73-year-old female seen in room 355. She was initially evaluated in the emergency department. She came in with confusion, and she was a very poor historian. The patient was placed on BiPAP, initially with settings of 16/6, 40%. She has a history of atrial fibrillation, coronary disease, CVA, hyperlipidemia, pneumonia, and seizure disorder. Currently, the patient is on 3 L of oxygen. The BiPAP is in the room. Is not clear to me whether or not she used it last night. She does continue on IV heparin. Current labs include a white count 5.6, hemoglobin 9.6, hematocrit 30.7, and a platelet count of 146,000. PT was 22.7. INR 2.3. PTT was 67.4. Sodium 136, potassium 3.7, chloride 88, CO2 46, BUN 18, creatinine 0.66. Troponins were 0.015, and 0.015. Objective - Vital Signs Vital signs: Vital Signs Temp 98.5 F 12/14/23 04:00 Pulse 80 12/14/23 12:10 Resp 19 12/14/23 04:00 BP 112/56 12/14/23 04:00 Pulse Ox 95 12/14/23 08:07 FiO2 40 12/14/23 04:00 Intake & Output 12/13/23 12/14/23 12/14/23 18:59 06:59 18:59 Intake Total 20 Output Total 800 300 Balance -800 -280 Weight 115 kg 115 kg Intake: IV 20 Invasive Line 1 10 Invasive Line 2 10 Output: Urine 800 300 Female - External 800 Other: Voiding Method External Catheter External Catheter # Bowel Movements 1 - Exam No acute distress, much more awake and alert. Currently on 3 L of oxygen. HEENT examination is grossly unremarkable. Neck supple. Full range of motion. No adenopathy thyromegaly or neck vein distention. Cardiovascular examination reveals an irregular rhythm and rate. S1-S2 normal. No S3 or S4. No discernible murmur noted. Heart sounds are distant. Lungs reveal diminished bilateral breath sounds. Scattered rhonchi. Scattered crackles are also noted. No wheezes. Breath sounds are equal. Abdomen obese, but soft. No masses or tenderness. Extremities are intact. No cyanosis or clubbing. Lower extremity edema noted. Skin is without rash or lesion. Neurologic examination is brief but nonfocal. - Labs CBC & Chem 7: 12/14/23 07:27 12/14/23 07:27 Labs: Abnormal Lab Results - Last 24 Hours (Table) 12/13/23 12/13/23 12/14/23 Range/Units 19:02 19:02 07:27 RBC 3.39 L 3.01 L (3.80-5.40) m/uL Hgb 11.0 L 9.6 L (11.4-16.0) gm/dL Hct 30.7 L (34.0-46.0) % MCV 103.5 H 102.0 H (80.0-100.0) fL Plt Count 130 L 146 L (150-450) k/uL Neutrophils # 8.3 H (1.3-7.7) k/uL Lymphocytes # 0.5 L 0.5 L (1.0-4.8) k/uL PT 18.4 H (10.0-12.5) sec INR 1.8 H (<1.2) APTT 62.9 H (22.0-30.0) sec Sodium (137-145) mmol/L Chloride (98-107) mmol/L Carbon Dioxide (22-30) mmol/L BUN (7-17) mg/dL Glucose (74-99) mg/dL Calcium (8.4-10.2) mg/dL 12/14/23 12/14/23 Range/Units 07:27 07:27 RBC (3.80-5.40) m/uL Hgb (11.4-16.0) gm/dL Hct (34.0-46.0) % MCV (80.0-100.0) fL Plt Count (150-450) k/uL Neutrophils # (1.3-7.7) k/uL Lymphocytes # (1.0-4.8) k/uL PT 22.7 H (10.0-12.5) sec INR 2.3 H (<1.2) APTT 67.4 H (22.0-30.0) sec Sodium 136 L (137-145) mmol/L Chloride 88 L (98-107) mmol/L Carbon Dioxide 46 H* (22-30) mmol/L BUN 18 H (7-17) mg/dL Glucose 133 H (74-99) mg/dL Calcium 8.0 L (8.4-10.2) mg/dL Assessment and Plan Assessment: Acute on chronic hypoxemic and hypercapnic respiratory failure, likely multifactorial, in part related to congestive heart failure, as well as possible sleep apnea syndrome/pickwickian syndrome. History of systolic congestive heart failure, with an ejection fraction of 40 to 45%. Hypercarbic encephalopathy. History of atrial fibrillation with a relatively controlled ventricular response rate. History of mitral valve replacement. History of hyperlipidemia. History of CVA. History of tricuspid regurgitation. History of seizure disorder. Plan: Plan dated December 13, 2023. The patient is seen in the emergency department, room 5. The patient is maintained on BiPAP, with settings of 16/6, and 40%. The patient does have acute on chronic hypercapnic respiratory failure, and encephalopathy, secondary to both hypoxemia, and hypercapnia. The patient currently is on a heparin drip. She has a history of chronic atrial fibrillation. She is quite somnolent and lethargic, and obtunded. Very poor historian. Saturation should be maintained between 88 and 92%. The patient is a lifelong non-smoker. Labs, x-rays, medications are reviewed. The patient may have some underlying sleep apnea sy ndrome, and/or pickwickian syndrome. Plan dated December 14, 2023. The patient is on 3 L of oxygen. Initially, the patient was maintained on BiPAP, with settings of 16/6, and 40%. The patient does continue on IV heparin. Labs, x-rays, and medications are reviewed. We feel the primary process re lates to congestive heart failure. There may also be a component of sleep apnea syndrome, and/or Pickwickian syndrome. Labs, x-rays, and all medications are reviewed. Prognosis is guarded. We will continue to follow the patient. Time with Patient: Less than 30
--- NOTE | 2023-12-14 12:49 | P.PN ---
Subjective HISTORY OF PRESENT ILLNESS: This is a 73-year-old female with a past medical history significant for congestive heart failure, chronic atrial fibrillation, mechanical mitral valve replacement, pulmonary hypertension, CVA, severe tricuspid regurgitation, cardiomyopathy, chronic lower extremity edema, and debility bedbound at baseline. Patient follows in the office with Dr. Escamilla. We have been asked to see the patient in consultation for congestive heart failure. Patient examined at the bedside in the emergency room. Patient resides at [facility]. Per nursing, patient's daughter reported that she has been confused over the past week and they have been wanting to bring her to the hospital. Patient is currently on BiPAP. Patient currently denies shortness of breath. She denies chest pain or pressure. She states the staff at [facility] noticed that she had increased lower extremity edema. DIAGNOSTICS: - EKG reveals fibrillation with heart rate of 104. No signs of acute ischemia. - Chest xray prominent lung markings and lower lung opacities may represent pulmonary vascular congestion/edema - Laboratory data: WBC 6.7. Hemoglobin 10.5. Platelet count 183. Sodium 136. Potassium 4.3. BUN 16. Creatinine 0.66. Troponin negative x 2. proBNP 1760. - Current home cardiac medications include Lipitor 40 mg at night, Bumex 2 mg twice a day, metoprolol tartrate 12.5 mg twice a day, midodrine 5 mg 3 times a day, Aldactone 50 mg daily, warfarin 2 mg at night - Most recent echocardiogram obtained in 07/2023 revealed ejection fraction 40 to 45%, mild pulmonary hypertension, normally functioning mechanical mitral valve, mild pulm and hypertension, severe tricuspid regurgitation - Cardiac catheterization history: Unknown 12/14/2023 Patient examined this morning at the bedside. Patient currently denies chest pain or pressure. She denies shortness of breath. Telemetry reveals atrial fibrillation with controlled ventricular rate. She remains on IV heparin. She is also receiving Coumadin. INR today is 2.3. Echocardiogram completed revealing ejection fraction 40%, mechanical mitral valve suboptimal for optimal evaluation of prosthetic valve, and severe tricuspid regurgitation. PHYSICAL EXAM: VITAL SIGNS: Reviewed. GENERAL: Well-developed in no acute distress. HEENT: Head is normocephalic. Pupils are equal, round. Sclerae anicteric. Mucous membranes of the mouth are moist. Neck supple. No JVD or thyromegaly LUNGS: Respirations even and unlabored. Lungs essentially clear to auscultation bilaterally. HEART: Irregular rate and rhythm. S1 and S2 heard. Systolic murmur noted with mechanical click. ABDOMEN: Soft. Nondistended. Nontender. EXTREMITIES: Normal range of motion. No clubbing or cyanosis. Peripheral pulses intact. Bilateral lower extremity edema noted NEUROLOGIC: Awake and alert. Oriented x 3. ASSESSMENT: Altered mental status, etiology unclear Acute hypoxic and hypercapnic respiratory failure Acute on chronic heart failure with reduced EF, 40%, mild exacerbation Permanent atrial fibrillation with controlled ventricular rate History of mechanical mitral valve replacement Subtherapeutic INR, 1.7 on admission Mild pulmonary pretension, per echo 07/2023 Severe tricuspid regurgitation History of CVA Chronic lower extremity edema Debility, bedbound at baseline PLAN: Continue IV Lasix 40 mg every 12 hours Daily weights, accurate intake and output, and monitoring of kidney function Continue Coumadin. Monitor INR. Continue IV heparin until INR is therapeutic between 2.5 and 3.5 due to mechanical mitral valve Continue additional cardiac medications Further recommendations pending patient course Nurse practitioner note has been reviewed by physician. Signing provider agrees with the documented findings, assessment, and plan of care documented by [employer]/DESIGNER as a scribe. Objective - Vital Signs Vital signs: Vital Signs Temp 98.5 F 12/14/23 04:00 Pulse 80 12/14/23 12:10 Resp 19 12/14/23 04:00 BP 112/56 12/14/23 04:00 Pulse Ox 95 12/14/23 08:07 FiO2 40 12/14/23 04:00 Intake & Output 12/13/23 12/14/23 12/14/23 18:59 06:59 18:59 Intake Total 20 Output Total 800 300 Balance -800 -280 Weight 115 kg 115 kg Intake: IV 20 Invasive Line 1 10 Invasive Line 2 10 Output: Urine 800 300 Female - External 800 Other: Voiding Method External Catheter External Catheter # Bowel Movements 1 - Labs CBC & Chem 7: 12/14/23 07:27 12/14/23 07:27 Labs: Abnormal Lab Results - Last 24 Hours (Table) 12/13/23 12/13/23 12/14/23 Range/Units 19:02 19:02 07:27 RBC 3.39 L 3.01 L (3.80-5.40) m/uL Hgb 11.0 L 9.6 L (11.4-16.0) gm/dL Hct 30.7 L (34.0-46.0) % MCV 103.5 H 102.0 H (80.0-100.0) fL Plt Count 130 L 146 L (150-450) k/uL Neutrophils # 8.3 H (1.3-7.7) k/uL Lymphocytes # 0.5 L 0.5 L (1.0-4.8) k/uL PT 18.4 H (10.0-12.5) sec INR 1.8 H (<1.2) APTT 62.9 H (22.0-30.0) sec Sodium (137-145) mmol/L Chloride (98-107) mmol/L Carbon Dioxide (22-30) mmol/L BUN (7-17) mg/dL Glucose (74-99) mg/dL Calcium (8.4-10.2) mg/dL 12/14/23 12/14/23 Range/Units 07:27 07:27 RBC (3.80-5.40) m/uL Hgb (11.4-16.0) gm/dL Hct (34.0-46.0) % MCV (80.0-100.0) fL Plt Count (150-450) k/uL Neutrophils # (1.3-7.7) k/uL Lymphocytes # (1.0-4.8) k/uL PT 22.7 H (10.0-12.5) sec INR 2.3 H (<1.2) APTT 67.4 H (22.0-30.0) sec Sodium 136 L (137-145) mmol/L Chloride 88 L (98-107) mmol/L Carbon Dioxide 46 H* (22-30) mmol/L BUN 18 H (7-17) mg/dL Glucose 133 H (74-99) mg/dL Calcium 8.0 L (8.4-10.2) mg/dL
[2023-12-14] MEDS ORDERED: NITROGLYCERIN OINT 1 INCH/GM PACKET TOPICAL SCH (13:00)
[2023-12-14] MEDS: WARFARIN 2 MG TAB PO ONE (17:55)
--- NOTE | 2023-12-14 18:36 | P.PN ---
Subjective Progress Note Date: 12/14/23 Patient is a pleasant 73-year-old female was sent in because of decreased level of consciousness with concerns of aspiration. Patient was also short of breath patient is found to be in hypercapnic respiratory failure with pH of 7.3 and pCO2 of 90 and pO2 of around 70. Patient does have history of obstructive sleep apnea morbidly obese female uses CPAP machine at nighttime. Patient does have multiple other medical problems including congestive heart failure with a EF of around 40 to 45% chest x-ray showing some pulmonary edema and BNP of 1700. Patient does not have any fever chills presently on BiPAP at this time. Patient is on Bumex 2 mg twice a day as an outpatient. Patient does have mild pedal edema on exam. Patient does use oxygen at baseline. Patient is mostly bedbound bilateral does have bilateral foot drop has history of cerebrovascular accident as well in the past 12/14/2023 Patient is evaluated today in follow up on the medical floor. Patient has been continued on the bipap overnight. Currently down to 4L of oxygen, and reports not wearing any home oxygen. Patients CO2 is 46. Patient remains on IV lasix 40 mg Q12 hour. Patient has been started on IV heparin bridge as she has been subtherapeutic on warfarin. CO2 is 46 today. Review of Systems Constitutional: Denied any fatigue denied any fever. Cardio vascular: denied any chest pain, palpitations Gastrointestinal: denied any nausea, vomiting, diarrhea Pulmonary: Denied any shortness of breath cough Neurologic denied any new focal deficits All inpatient medications were reviewed and appropriate changes in these medications as dictated in the interval history and assessment and plan. PHYSICAL EXAMINATION: GENERAL: Morbidly obese drowsy oriented x 3, patient is on nasal cannula. HEENT: Pupils are round and equally reacting to light. EOMI. No scleral icterus. No conjunctival pallor. Normocephalic, atraumatic. No pharyngeal erythema. No thyromegaly. CARDIOVASCULAR: S1 and S2 present. No murmurs, rubs, or gallops. PULMONARY: Good air entry with mild expiratory wheezing on exam ABDOMEN: Soft, nontender, nondistended, normoactive bowel sounds. No palpable organomegaly. MUSCULOSKELETAL: No joint swelling or deformity. EXTREMITIES: No cyanosis, clubbing, or my lower EXTR bilateral pedal edema NEUROLOGICAL: Gross neurological examination did not reveal any focal deficits. SKIN: No rashes. Assessment and plan -Acute hypoxic and hypercapnic respiratory failure on chronic hypercapnic respiratory failure and is is probably because of obesity sleep apnea and mild bronchitis may have contributed to CO2 retention ]Patient is on BiPAP, has been transitioned to nasal cannula today. -Acute hypoxic respiratory failure secondary to congestive heart failure chronic systolic function EF of around 40 to 45% patient on IV Lasix which will be continued with strict I's and O's. Patient also has mild pulmonary hypertension with severely dilated LV and severe tricuspid regurgitation -Respiratory acidosis secondary to CO2 retention 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 -History of CVA in the past -Seizure disorder for which patient is on Keppra which will be resumed -Hyperlipidemia -Obesity and sleep apnea -Chronic medical debility -Foot drop -Peripheral neuropathy for which patient is on gabapentin which will be resumed DVT prophylaxis: Lovenox The impression and plan of care has been dictated by Lin Villalobos, Nurse Practitioner as directed. Dr. Dianna MD I have performed a history and physical examination and medical decision making of this patient, discussed the same with the dictator, and agree with the dictators assessment and plan as written, documented as a scribe. Based on total visit time, I have performed more than 50% of this visit. Objective - Vital Signs Vital signs: Vital Signs Temp 97.9 F 12/14/23 16:00 Pulse 78 12/14/23 16:00 Resp 18 12/14/23 16:00 BP 94/48 12/14/23 16:00 Pulse Ox 98 12/14/23 16:00 FiO2 40 12/14/23 04:00 Intake & Output 12/13/23 12/14/23 12/14/23 18:59 06:59 18:59 Intake Total 20 242.858 Output Total 190 779 3246 Balance -800 -280 -1157.142 Weight 115 kg 115 kg Intake: IV 20 Invasive Line 1 10 Invasive Line 2 10 Intake, IV Titration 242.858 Amount Heparin Sod,Pork in 0.45% 242.858 NaCl 25,000 unit In 0.45 % NaCl 1 250ml.bag @ 6. 784 UNITS/KG/HR 10.001 mls/hr IV .Q24H [facility] Rx#: [id number] Output: Urine 753 773 5086 Female - External 800 Other: Voiding Method External Catheter External Catheter External Catheter # Bowel Movements 1 1 - Labs CBC & Chem 7: 12/14/23 07:27 12/14/23 07:27 Labs: Abnormal Lab Results - Last 24 Hours (Table) 12/13/23 12/13/23 12/14/23 Range/Units 19:02 19:02 07:27 RBC 3.39 L 3.01 L (3.80-5.40) m/uL Hgb 11.0 L 9.6 L (11.4-16.0) gm/dL Hct 30.7 L (34.0-46.0) % MCV 103.5 H 102.0 H (80.0-100.0) fL Plt Count 130 L 146 L (150-450) k/uL Neutrophils # 8.3 H (1.3-7.7) k/uL Lymphocytes # 0.5 L 0.5 L (1.0-4.8) k/uL PT 18.4 H (10.0-12.5) sec INR 1.8 H (<1.2) APTT 62.9 H (22.0-30.0) sec Sodium (137-145) mmol/L Chloride (98-107) mmol/L Carbon Dioxide (22-30) mmol/L BUN (7-17) mg/dL Glucose (74-99) mg/dL Calcium (8.4-10.2) mg/dL 12/14/23 12/14/23 Range/Units 07:27 07:27 RBC (3.80-5.40) m/uL Hgb (11.4-16.0) gm/dL Hct (34.0-46.0) % MCV (80.0-100.0) fL Plt Count (150-450) k/uL Neutrophils # (1.3-7.7) k/uL Lymphocytes # (1.0-4.8) k/uL PT 22.7 H (10.0-12.5) sec INR 2.3 H (<1.2) APTT 67.4 H (22.0-30.0) sec Sodium 136 L (137-145) mmol/L Chloride 88 L (98-107) mmol/L Carbon Dioxide 46 H* (22-30) mmol/L BUN 18 H (7-17) mg/dL Glucose 133 H (74-99) mg/dL Calcium 8.0 L (8.4-10.2) mg/dL Microbiology - Last 24 Hours (Table) 12/13/23 03:35 Blood Culture - Preliminary Blood Assessment and Plan Time with Patient: Less than 30
--- NOTE | 2023-12-15 05:54 | P.PN ---
Subjective Progress Note Date: 12/15/23 The patient is a pleasant 73-year-old female patient with extensive cardiovascular history consistent of valvular heart disease status post mitral valve replacement using mechanical valve as well as permanent atrial fibrillation and history of stroke as well as cardiomyopathy with a EF around 40% as well as morbid obesity and hypertension and dyslipidemia and pulmonary hypertension was admitted to the hospital with a change in mental status and also she was admitted with acute hypoxic respiratory failure with a component of heart failure. The echo revealed impaired LV function with EF around 40% December 15, 2023 Patient was seen and evaluated this morning. She still hypoxic. She still hypervolemic with bilateral lower extremities edema. The echo revealed impaired LV function with EF around 40% with severe pulmonary hypertension antiradial right ventricle. The mitral valve appears to be functioning normally which is a mechanical valve which she continues to be on Coumadin with subtherapeutic INR and she continues to be on heparin for bridging. Pharmacy to manage INR. Examination is remarkable for severe bilateral lower extremity edema and diminished breathing sounds bilaterally and irregular rhythm with a systolic murmur at the left upper sternal border Assessment Acute hypoxic respiratory failure likely to be multifactorial Heart failure exacerbation secondary to HFrEF Permanent atrial fibrillation with controlled heart rate Status post mitral valve placement using mechanical valve History of stroke Multiple comorbid conditions including morbid obesity as well as hypertension and dyslipidemia Cardiomyopathy with EF around 40% Severe pulmonary hypertension Plan Continue the current medical regimen Pharmacy to manage the Coumadin Continue IV Lasix for additional 24 hours Avoid aggressive blood pressure control giving the severe pulmonary hypertension Add lisinopril to the current medical regimen in the light of new diagnosis of cardiomyopathy Follow-up with the patient Objective - Vital Signs Vital signs: Vital Signs Temp 98.2 F 12/15/23 03:24 Pulse 83 12/15/23 03:24 Resp 17 12/15/23 03:24 BP 114/64 12/15/23 03:24 Pulse Ox 97 12/15/23 03:24 FiO2 40 12/15/23 04:34 Intake & Output 12/14/23 12/14/23 12/15/23 06:59 18:59 06:59 Intake Total 20 362.858 20 Output Total 300 1400 650 Balance -280 -1037.142 -630 Weight 115 kg 115 kg Intake: IV 20 20 Invasive Line 1 10 10 Invasive Line 2 10 10 Intake, IV Titration 242.858 Amount Heparin Sod,Pork in 0.45% 242.858 NaCl 25,000 unit In 0.45 % NaCl 1 250ml.bag @ 6. 784 UNITS/KG/HR 10.001 mls/hr IV .Q24H [facility] Rx#: [id number] Oral 120 Output: Urine 300 1400 650 Other: Voiding Method External Catheter External Catheter External Catheter # Voids 3 # Bowel Movements 1 1 1 - Labs CBC & Chem 7: 12/14/23 07:27 12/14/23 07:27 Labs: Abnormal Lab Results - Last 24 Hours (Table) 12/14/23 12/14/23 12/14/23 Range/Units 07:27 07:27 07:27 RBC 3.01 L (3.80-5.40) m/uL Hgb 9.6 L (11.4-16.0) gm/dL Hct 30.7 L (34.0-46.0) % MCV 102.0 H (80.0-100.0) fL Plt Count 146 L (150-450) k/uL Lymphocytes # 0.5 L (1.0-4.8) k/uL PT 22.7 H (10.0-12.5) sec INR 2.3 H (<1.2) APTT 67.4 H (22.0-30.0) sec Sodium 136 L (137-145) mmol/L Chloride 88 L (98-107) mmol/L Carbon Dioxide 46 H* (22-30) mmol/L BUN 18 H (7-17) mg/dL Glucose 133 H (74-99) mg/dL Calcium 8.0 L (8.4-10.2) mg/dL Microbiology - Last 24 Hours (Table) 12/13/23 03:35 Blood Culture - Preliminary Blood
[2023-12-15 07:32] LABS: INR 2.5 (<1.2); Prothrombin Time 24.7 sec (10.0-12.5)
[2023-12-15 10:37] LABS: African American GFR (CKD) >90 (>60 ml/min/1.73 sqM); Blood Urea Nitrogen 18 mg/dL (7-17); Calcium 8.2 mg/dL (8.4-10.2); Chloride 89 mmol/L (98-107); Glucose 132 mg/dL (74-99); Non-African American GFR(CKD) 88 (>60 ml/min/1.73 sqM); Sodium 136 mmol/L (137-145)
[2023-12-15 10:43] LABS: Anion Gap 5 mmol/L
[2023-12-15 11:13] LABS: Carbon Dioxide 42 mmol/L (22-30)
--- NOTE | 2023-12-15 12:09 | P.PN ---
Subjective Progress Note Date: 12/15/23 Principal diagnosis: Heart failure. Pulmonary consult dated December 13, 2023. 73-year-old female originally seen by Dr. Carroll in the emergency room, and then followed by Dr. Cárdenas afterwards. This is a 73-year-old female who presented with shortness of breath and difficulty breathing. The patient was seen in the emergency department, on December 12. The patient was very confused when she first came in, and was a very poor historian. The patient was initially placed on BiPAP, with settings of 16/6, and 40%. She remains on BiPAP. Patient has a history of atrial fibrillation, coronary disease, CVA, hyperlipidemia, pneumonia, and seizure disorder. The patient apparently also has a previous history of either mitral valve replacement or repair. She is a lifelong non- smoker. Laboratory data includes a white count 6.7, hemoglobin 10.5, hematocrit 34.5, and a platelet count of 103,000. PT was 17.3 with an INR of 1.7. Venous blood gas showed a pCO2 of 98, and a pH of 7.3. Sodium 136, potassium 4.3, chlorides 91, CO2 41, BUN and creatinine were 16 and 0.66. Glucose 159. Calcium 8.2. Troponin was 0.012. N-terminal proBNP was 1760. Chest x-ray showed sternal wires consistent with previous open heart surgery. Cardiac silhouette is enlarged. Costophrenic angles are blunted. This x-ray in my opinion is consistent with pulmonary vascular congestion. EKG shows evidence of atrial fibrillation. Progress note dated December 14, 2023. 73-year-old female seen in room 355. She was initially evaluated in the emergency department. She came in with confusion, and she was a very poor historian. The patient was placed on BiPAP, initially with settings of 16/6, 40%. She has a history of atrial fibrillation, coronary disease, CVA, hyperlipidemia, pneumonia, and seizure disorder. Currently, the patient is on 3 L of oxygen. The BiPAP is in the room. Is not clear to me whether or not she used it last night. She does continue on IV heparin. Current labs include a white count 5.6, hemoglobin 9.6, hematocrit 30.7, and a platelet count of 146,000. PT was 22.7. INR 2.3. PTT was 67.4. Sodium 136, potassium 3.7, chloride 88, CO2 46, BUN 18, creatinine 0.66. Troponins were 0.015, and 0.015. Progress note dated December 15, 2023. 73-year-old female seen again in room 355. The patient is resting comfortably in bed. She denies any complaints. Currently, she is on 2 L of oxygen. She is getting IV heparin. She did use BiPAP last night, with settings of 16/6, and 40%. The patient continues in atrial fibrillation. Current labs include a PTT of 63.1. Sodium 136, potassium 3, chloride 89, CO2 42, BUN 18, creatinine 0.69. Calcium is 8.2. Objective - Vital Signs Vital signs: Vital Signs Temp 98.0 F 12/15/23 08:00 Pulse 90 12/15/23 08:00 Resp 18 12/15/23 08:00 BP 109/58 12/15/23 08:00 Pulse Ox 95 12/15/23 09:10 FiO2 40 12/15/23 04:34 Intake & Output 12/14/23 12/15/23 12/15/23 18:59 06:59 18:59 Intake Total 362.858 20 180 Output Total 1400 650 Balance -1037.142 -630 180 Weight 115 kg Intake: IV 20 Invasive Line 1 10 Invasive Line 2 10 Intake, IV Titration 242.858 Amount Heparin Sod,Pork in 0.45% 242.858 NaCl 25,000 unit In 0.45 % NaCl 1 250ml.bag @ 6. 784 UNITS/KG/HR 10.001 mls/hr IV .Q24H [facility] Rx#: [id number] Oral 120 180 Output: Urine 1400 650 Other: Voiding Method External Catheter External Catheter External Catheter # Voids 3 # Bowel Movements 1 1 1 - Exam No acute distress, much more awake and alert. Currently on 3 L of oxygen. HEENT examination is grossly unremarkable. Neck supple. Full range of motion. No adenopathy thyromegaly or neck vein distention. Cardiovascular examination reveals an irregular rhythm and rate. S1-S2 normal. No S3 or S4. No discernible murmur noted. Heart sounds are distant. Lungs reveal diminished bilateral breath sounds. Scattered rhonchi. Scattered crackles are also noted. No wheezes. Breath sounds are equal. Abdomen obese, but soft. No masses or tenderness. Extremities are intact. No cyanosis or clubbing. Lower extremity edema noted. Skin is without rash or lesion. Neurologic examination is brief but nonfocal. - Labs CBC & Chem 7: 12/14/23 07:27 12/15/23 09:32 Labs: Abnormal Lab Results - Last 24 Hours (Table) 12/15/23 12/15/23 12/15/23 Range/Units 06:40 08:11 09:32 PT 24.7 H (10.0-12.5) sec INR 2.5 H (<1.2) APTT 63.1 H (22.0-30.0) sec Sodium 136 L (137-145) mmol/L Potassium 3.0 L (3.5-5.1) mmol/L Chloride 89 L (98-107) mmol/L Carbon Dioxide 42 H* (22-30) mmol/L BUN 18 H (7-17) mg/dL Glucose 132 H (74-99) mg/dL Calcium 8.2 L (8.4-10.2) mg/dL Microbiology - Last 24 Hours (Table) 12/13/23 03:35 Blood Culture - Preliminary Blood Assessment and Plan Assessment: Acute on chronic hypoxemic and hypercapnic respiratory failure, likely multifactorial, in part related to congestive heart failure, as well as possible sleep apnea syndrome/pickwickian syndrome. History of systolic congestive heart failure, with an ejection fraction of 40 to 45%. Hypercarbic encephalopathy. History of atrial fibrillation with a relatively controlled ventricular response rate. History of mitral valve replacement. History of hyperlipidemia. History of CVA. History of tricuspid regurgitation. History of seizure disorder. Plan: Plan dated December 13, 2023. The patient is seen in the emergency department, room 5. The patient is maintained on BiPAP, with settings of 16/6, and 40%. The patient does have a cute on chronic hypercapnic respiratory failure, and encephalopathy, secondary to both hypoxemia, and hypercapnia. The patient currently is on a heparin drip. She has a history of chronic atrial fibrillation. She is quite somnolent and lethargic, and obtunded. Very poor historian. Saturation should be maintained between 88 and 92%. The patient is a lifelong non-smoker. Labs, x-rays, medications are reviewed. The patient may have some underlying sleep apnea syndrome, and/or pickwickian syndrome. Plan dated December 14, 2023. The patient is on 3 L of oxygen. Initially, the patient was maintained on BiPAP, with settings of 16/6, and 40%. The patient does continue on IV heparin. Labs, x-rays, and medications are reviewed. We feel the primary process relates to congestive heart failure. There may also be a component of sleep apnea syndrome, and/or Pickwickian syndrome. Labs, x-rays, and all medications are reviewed. Prognosis is guarded. We will continue to follow the patient. Plan dated December 15, 2023. The patient continues to do reasonably well. She continues on oxygen at 2 L. She also continues on IV heparin. She did use BiPAP last night, with settings of 16/6, and 40%. Labs, x-rays, and medications are reviewed. We will continue to follow the patient, make recommendations along the way. Overall prognosis remains guarded. Time with Patient: Less than 30
--- NOTE | 2023-12-15 13:05 | P.PN ---
Subjective Progress Note Date: 12/15/23 Patient is a pleasant 73-year-old female was sent in because of decreased level of consciousness with concerns of aspiration. Patient was also short of breath patient is found to be in hypercapnic respiratory failure with pH of 7.3 and pCO2 of 90 and pO2 of around 70. Patient does have history of obstructive sleep apnea morbidly obese female uses CPAP machine at nighttime. Patient does have multiple other medical problems including congestive heart failure with a EF of around 40 to 45% chest x-ray showing some pulmonary edema and BNP of 1700. Patient does not have any fever chills presently on BiPAP at this time. Patient is on Bumex 2 mg twice a day as an outpatient. Patient does have mild pedal edema on exam. Patient does use oxygen at baseline. Patient is mostly bedbound bilateral does have bilateral foot drop has history of cerebrovascular accident as well in the past 12/14/2023 Patient is evaluated today in follow up on the medical floor. Patient has been continued on the bipap overnight. Currently down to 4L of oxygen, and reports not wearing any home oxygen. Patients CO2 is 46. Patient remains on IV lasix 40 mg Q12 hour. Patient has been started on IV heparin bridge as she has been subtherapeutic on warfarin. CO2 is 46 today. 12/15/2023 Patient is evaluated today in follow-up on the medical floor. She has been continued on BiPAP overnight currently on nasal cannula awake alert oriented. Remains on IV heparin, INR today is 2.5. Sodium levels 136 potassium 3.0 today. Review of Systems Constitutional: Denied any fatigue denied any fever. Cardio vascular: denied any chest pain, palpitations Gastrointestinal: denied any nausea, vomiting, diarrhea Pulmonary: Denied any shortness of breath cough Neurologic denied any new focal deficits All inpatient medications were reviewed and appropriate changes in these medications as dictated in the interval history and assessment and plan. PHYSICAL EXAMINATION: GENERAL: Morbidly obese drowsy oriented x 3, patient is on nasal cannula. HEENT: Pupils are round and equally reacting to light. EOMI. No scleral icterus. No conjunctival pallor. Normocephalic, atraumatic. No pharyngeal erythema. No thyromegaly. CARDIOVASCULAR: S1 and S2 present. No murmurs, rubs, or gallops. PULMONARY: Good air entry with mild expiratory wheezing on exam ABDOMEN: Soft, nontender, nondistended, normoactive bowel sounds. No palpable organomegaly. MUSCULOSKELETAL: No joint swelling or deformity. EXTREMITIES: No cyanosis, clubbing, or my lower EXTR bilateral pedal edema NEUROLOGICAL: Gross neurological examination did not reveal any focal deficits. SKIN: No rashes. Assessment and plan -Acute hypoxic and hypercapnic respiratory failure on chronic hypercapnic respiratory failure and is is probably because of obesity sleep apnea and mild bronchitis may have contributed to CO2 retention Batient is on BiPAP at HS -Acute hypoxic respiratory failure secondary to congestive heart failure chronic systolic function EF of around 40 to 45% patient on IV Lasix which will be continued with strict I's and O's. Patient also has mild pulmonary hypertension with severely dilated LV and severe tricuspid regurgitation. Cardiology Adjusting medications have added lisinopril secondary to the new cardiomyopathy -Hypokalemia from diuresis will supplement -Respiratory acidosis secondary to CO2 retention 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 -History of CVA in the past -Seizure disorder for which patient is on Keppra which will be resumed -Hyperlipidemia -Obesity and sleep apnea -Chronic medical debility -Foot drop -Peripheral neuropathy for which patient is on gabapentin which will be resumed DVT prophylaxis: Lovenox The impression and plan of care has been dictated by Lin Villalobos Nurse Practitioner as directed. Dr. Dianna MD I have performed a history and physical examination and medical decision making of this patient, discussed the same with the dictator, and agree with the dictators assessment and plan as written, documented as a scribe. Based on total visit time, I have performed more than 50% of this visit. Objective - Vital Signs Vital signs: Vital Signs Temp 98.0 F 12/15/23 08:00 Pulse 94 12/15/23 12:55 Resp 18 12/15/23 08:00 BP 109/58 12/15/23 08:00 Pulse Ox 95 12/15/23 09:10 FiO2 40 12/15/23 04:34 Intake & Output 12/14/23 12/15/23 12/15/23 18:59 06:59 18:59 Intake Total 362.858 20 180 Output Total 1400 650 Balance -1037.142 -630 180 Weight 115 kg Intake: IV 20 Invasive Line 1 10 Invasive Line 2 10 Intake, IV Titration 242.858 Amount Heparin Sod,Pork in 0.45% 242.858 NaCl 25,000 unit In 0.45 % NaCl 1 250ml.bag @ 6. 784 UNITS/KG/HR 10.001 mls/hr IV .Q24H [facility] Rx#: [id number] Oral 120 180 Output: Urine 1400 650 Other: Voiding Method External Catheter External Catheter External Catheter # Voids 3 # Bowel Movements 1 1 1 - Labs CBC & Chem 7: 12/14/23 07:27 12/15/23 09:32 Labs: Abnormal Lab Results - Last 24 Hours (Table) 12/15/23 12/15/23 12/15/23 Range/Units 06:40 08:11 09:32 PT 24.7 H (10.0-12.5) sec INR 2.5 H (<1.2) APTT 63.1 H (22.0-30.0) sec Sodium 136 L (137-145) mmol/L Potassium 3.0 L (3.5-5.1) mmol/L Chloride 89 L (98-107) mmol/L Carbon Dioxide 42 H* (22-30) mmol/L BUN 18 H (7-17) mg/dL Glucose 132 H (74-99) mg/dL Calcium 8.2 L (8.4-10.2) mg/dL Microbiology - Last 24 Hours (Table) 12/13/23 03:35 Blood Culture - Preliminary Blood Assessment and Plan Time with Patient: Less than 30
[2023-12-15] MEDS: POTASSIUM CHLORIDE ER 20 MEQ TAB.ER PO SCH (17:29)
[2023-12-15] MEDS: WARFARIN 2 MG TAB PO ONE (17:29)
[2023-12-15] MEDS: MORPHINE SULFATE ER 30 MG TABLET PO SCH (20:20)
--- NOTE | 2023-12-16 06:06 | P.PN ---
Subjective Progress Note Date: 12/16/23 The patient is a pleasant 73-year-old female patient with extensive cardiovascular history consistent of valvular heart disease status post mitral valve replacement using mechanical valve as well as permanent atrial fibrillation and history of stroke as well as cardiomyopathy with a EF around 40% as well as morbid obesity and hypertension and dyslipidemia and pulmonary hypertension was admitted to the hospital with a change in mental status and also she was admitted with acute hypoxic respiratory failure with a component of heart failure. The echo revealed impaired LV function with EF around 40% December 15, 2023 Patient was seen and evaluated this morning. She still hypoxic. She still hypervolemic with bilateral lower extremities edema. The echo revealed impaired LV function with EF around 40% with severe pulmonary hypertension antiradial right ventricle. The mitral valve appears to be functioning normally which is a mechanical valve which she continues to be on Coumadin with subtherapeutic INR and she continues to be on heparin for bridging. Pharmacy to manage INR. Examination is remarkable for severe bilateral lower extremity edema and diminished breathing sounds bilaterally and irregular rhythm with a systolic murmur at the left upper sternal border December 16, 2023 The patient was seen and evaluated this morning. Overall from the cardiovascular standpoint of view, she seems better but she still have bilateral lower extremities edema which we do not know was her baseline which she continues to be on Lasix IV and GFR continues to be normal but potassium is low which is going to be replaced. From the cardiovascular standpoint of view, we will continue the current medical regimen and continue IV Lasix for additional 12 to 24 hours and consider switching the patient to oral diuretics by tomorrow. INR yesterday was therapeutic and she is on Coumadin has been managed by the pharmacy. The physical examination is remarkable for mechanical first heart sounds with diminished breathing sounds bilaterally and bilateral lower extremities edema worse on the left than the right Assessment Acute hypoxic respiratory failure likely to be multifactorial Heart failure exacerbation secondary to HFrEF Permanent atrial fibrillation with controlled heart rate Status post mitral valve placement using mechanical valve History of stroke Multiple comorbid conditions including morbid obesity as well as hypertension and dyslipidemia Cardiomyopathy with EF around 40% Severe pulmonary hypertension Plan Continue the current medical regimen Continue anticoagulation with Coumadin Continue Lasix for additional 12 to 24 hours Replace the potassium Monitor the kidney function and electrolytes Follow-up with the patient Objective - Vital Signs Vital signs: Vital Signs Temp 98.8 F 12/16/23 03:24 Pulse 93 12/16/23 03:24 Resp 18 12/16/23 03:24 BP 114/52 12/16/23 03:24 Pulse Ox 95 12/16/23 03:24 FiO2 40 12/15/23 23:38 Intake & Output 12/15/23 12/15/23 12/16/23 06:59 18:59 05:59 Intake Total 20 360 20 Output Total 125 921 9977 Balance -882 -075 -0349 Intake: IV 20 20 Invasive Line 1 10 10 Invasive Line 2 10 10 Oral 360 Output: Urine 456 460 7205 Other: Voiding Method External Catheter External Catheter External Catheter # Voids 3 # Bowel Movements 1 1 - Labs CBC & Chem 7: 12/14/23 07:27 12/15/23 09:32 Labs: Abnormal Lab Results - Last 24 Hours (Table) 12/15/23 12/15/23 12/15/23 Range/Units 06:40 08:11 09:32 PT 24.7 H (10.0-12.5) sec INR 2.5 H (<1.2) APTT 63.1 H (22.0-30.0) sec Sodium 136 L (137-145) mmol/L Potassium 3.0 L (3.5-5.1) mmol/L Chloride 89 L (98-107) mmol/L Carbon Dioxide 42 H* (22-30) mmol/L BUN 18 H (7-17) mg/dL Glucose 132 H (74-99) mg/dL Calcium 8.2 L (8.4-10.2) mg/dL Microbiology - Last 24 Hours (Table) 12/13/23 03:35 Blood Culture - Preliminary Blood
[2023-12-16 07:16] LABS: INR 2.4 (<1.2); Prothrombin Time 23.5 sec (10.0-12.5)
[2023-12-16 07:20] LABS: African American GFR (CKD) >90 (>60 ml/min/1.73 sqM); Blood Urea Nitrogen 14 mg/dL (7-17); Calcium 8.1 mg/dL (8.4-10.2); Chloride 91 mmol/L (98-107); Glucose 101 mg/dL (74-99); Non-African American GFR(CKD) 83 (>60 ml/min/1.73 sqM); Potassium 3.3 mmol/L (3.5-5.1); Sodium 137 mmol/L (137-145)
[2023-12-16 07:27] LABS: Anion Gap 4 mmol/L
[2023-12-16 08:32] LABS: Carbon Dioxide 42 mmol/L (22-30)
[2023-12-16] MEDS ORDERED: Potassium Replacement Protocol 1 EACH MISC MISCELLANE PRN (08:45)
[2023-12-16] MEDS: POTASSIUM CHLORIDE ER 20 MEQ TAB.ER PO SCH (08:58)
[2023-12-16 10:08] LABS: Appearance,Urine Clear (Clear); Bilirubin,Urine Negative (Negative); Blood,Urine Negative (Negative); Color,Urine Light Yellow; Glucose,Urine (UA) Negative (Negative); Ketones,Urine Negative (Negative); Leukocyte Esterase,Urine Negative (Negative); Nitrite,Urine Negative (Negative); Protein,Urine Negative (Negative); Specific Gravity,Urine 1.011 (1.001-1.035); Urobilinogen,Urine <2.0 mg/dL (<2.0)
--- NOTE | 2023-12-16 11:56 | P.PN ---
Subjective Progress Note Date: 12/16/23 Principal diagnosis: Heart failure. Pulmonary consult dated December 13, 2023. 73-year-old female originally seen by Dr. Carroll in the emergency room, and then followed by Dr. Cárdenas afterwards. This is a 73-year-old female who presented with shortness of breath and difficulty breathing. The patient was seen in the emergency department, on December 12. The patient was very confused when she first came in, and was a very poor historian. The patient was initially placed on BiPAP, with settings of 16/6, and 40%. She remains on BiPAP. Patient has a history of atrial fibrillation, coronary disease, CVA, hyperlipidemia, pneumonia, and seizure disorder. The patient apparently also has a previous history of either mitral valve replacement or repair. She is a lifelong non- smoker. Laboratory data includes a white count 6.7, hemoglobin 10.5, hematocrit 34.5, and a platelet count of 103,000. PT was 17.3 with an INR of 1.7. Venous blood gas showed a pCO2 of 98, and a pH of 7.3. Sodium 136, potassium 4.3, chlorides 91, CO2 41, BUN and creatinine were 16 and 0.66. Glucose 159. Calcium 8.2. Troponin was 0.012. N-terminal proBNP was 1760. Chest x-ray showed sternal wires consistent with previous open heart surgery. Cardiac silhouette is enlarged. Costophrenic angles are blunted. This x-ray in my opinion is consistent with pulmonary vascular congestion. EKG shows evidence of atrial fibrillation. Progress note dated December 14, 2023. 73-year-old female seen in room 355. She was initially evaluated in the emergency department. She came in with confusion, and she was a very poor historian. The patient was placed on BiPAP, initially with settings of 16/6, 40%. She has a history of atrial fibrillation, coronary disease, CVA, hyperlipidemia, pneumonia, and seizure disorder. Currently, the patient is on 3 L of oxygen. The BiPAP is in the room. Is not clear to me whether or not she used it last night. She does continue on IV heparin. Current labs include a white count 5.6, hemoglobin 9.6, hematocrit 30.7, and a platelet count of 146,000. PT was 22.7. INR 2.3. PTT was 67.4. Sodium 136, potassium 3.7, chloride 88, CO2 46, BUN 18, creatinine 0.66. Troponins were 0.015, and 0.015. Progress note dated December 15, 2023. 73-year-old female seen again in room 355. The patient is resting comfortably in bed. She denies any complaints. Currently, she is on 2 L of oxygen. She is getting IV heparin. She did use BiPAP last night, with settings of 16/6, and 40%. The patient continues in atrial fibrillation. Current labs include a PTT of 63.1. Sodium 136, potassium 3, chloride 89, CO2 42, BUN 18, creatinine 0.69. Calcium is 8.2. Progress note dated December 16, 2023. 73-year-old female again seen in room 355. The patient is not receiving any IV fluids. The patient is on O2 at 2 L. She did use her BiPAP device last night, with settings of 16/6, and 40%. The patient feels like she is improved. She denies any worsening or more severe shortness of breath, cough, wheezing, chest tightness, or phlegm production. She also denies any chest pain or pressure. Current labs include a PT of 23.5 and an INR of 2.4. Sodium 137, potassium 3.3, chlorides 91, CO2 42, BUN 14, creatinine 0.73. Urine is negative. Objective - Vital Signs Vital signs: Vital Signs Temp 98.3 F 12/16/23 08:00 Pulse 104 H 12/16/23 11:17 Resp 18 12/16/23 08:00 BP 94/64 12/16/23 08:00 Pulse Ox 94 L 12/16/23 08:00 FiO2 40 12/15/23 23:38 Intake & Output 12/15/23 12/16/23 12/16/23 19:59 06:59 18:59 Intake Total 180 Output Total 400 Balance -220 Weight Intake: IV Invasive Line 1 Invasive Line 2 Oral 180 Output: Urine 400 Other: Voiding Method External Catheter # Bowel Movements 1 - Exam No acute distress, much more awake and alert. Currently on 2 L of oxygen. HEENT examination is grossly unremarkable. Neck supple. Full range of motion. No adenopathy thyromegaly or neck vein distention. Cardiovascular examination reveals an irregular rhythm and rate. S1-S2 normal. No S3 or S4. No discernible murmur noted. Heart sounds are distant. Lungs reveal diminished bilateral breath sounds. Scattered rhonchi. Scattered crackles are also noted. No wheezes. Breath sounds are equal. Abdomen obese, but soft. No masses or tenderness. Extremities are intact. No cyanosis or clubbing. Lower extremity edema noted. Skin is without rash or lesion. Neurologic examination is brief but nonfocal. - Labs CBC & Chem 7: 12/14/23 07:27 12/16/23 06:01 Labs: Abnormal Lab Results - Last 24 Hours (Table) 12/16/23 12/16/23 Range/Units 06:01 06:01 PT 23.5 H (10.0-12.5) sec INR 2.4 H (<1.2) Potassium 3.3 L (3.5-5.1) mmol/L Chloride 91 L (98-107) mmol/L Carbon Dioxide 42 H* (22-30) mmol/L Glucose 101 H (74-99) mg/dL Calcium 8.1 L (8.4-10.2) mg/dL Microbiology - Last 24 Hours (Table) 12/13/23 03:35 Blood Culture - Preliminary Blood Assessment and Plan Assessment: Acute on chronic hypoxemic and hypercapnic respiratory failure, likely multifactorial, in part related to congestive heart failure, as well as possible sleep apnea syndrome/Pickwickian syndrome. History of systolic congestive heart failure, with an ejection fraction of 40 to 45%. Hypercarbic encephalopathy. History of atrial fibrillation with a relatively controlled ventricular response rate. History of mitral valve replacement. History of hyperlipidemia. History of CVA. History of tricuspid regurgitation. History of seizure disorder. Plan: Plan dated December 13, 2023. The patient is seen in the emergency department, room 5. The patient is maintained on BiPAP, with settings of 16/6, and 40%. The patient does have acute on chronic hypercapnic respiratory failure, and encephalopathy, secondary to both hypoxemia, and hypercapnia. The patient currently is on a heparin drip. She has a history of chronic atrial fibrillation. She is quite somnolent and lethargic, and obtunded. Very poor historian. Saturation should be maintained between 88 and 92%. The patient is a lifelong non-smoker. Labs, x-rays, medications are reviewed. The patient may have some underlying sleep apnea syndrome, and/or pickwickian syndrome. Plan dated December 14, 2023. The patient is on 3 L of oxygen. Initially, the patient was maintained on BiPAP, with settings of 16/6, and 40%. The patient does continue on IV heparin. Labs, x-rays, and medications are reviewed. We feel the primary process relates to congestive heart failure. There may also be a component of sleep apnea syndrome, and/or Pickwickian syndrome. Labs, x-rays, and all medications are reviewed. Prognosis is guarded. We will continue to follow the patient. Plan dated December 15, 2023. The patient continues to do reasonably well. She continues on oxygen at 2 L. She also continues on IV heparin. She did use BiPAP last night, with settings of 16/6, and 40%. Labs, x-rays, and medications are reviewed. We will continue to follow the patient, make recommendations along the way. Overall prognosis remains guarded. Plan dated December 16, 2023. The patient is doing reasonably well. She continues on O2 at 2 L. She did use BiPAP last night, with settings of 16/6 and 40%. The patient denies any worsening or more severe shortness of breath. She also denies any chest pain or pressure. Labs, x-rays, and all medications are reviewed. The patient is hoping to be discharged in the near future. We will continue to follow, while the patient remains in the hospital. Prognosis is certainly guarded. Time with Patient: Less than 30
--- NOTE | 2023-12-16 13:23 | P.PN ---
Subjective Progress Note Date: 12/16/23 Patient is a pleasant 73-year-old female was sent in because of decreased level of consciousness with concerns of aspiration. Patient was also short of breath patient is found to be in hypercapnic respiratory failure with pH of 7.3 and pCO2 of 90 and pO2 of around 70. Patient does have history of obstructive sleep apnea morbidly obese female uses CPAP machine at nighttime. Patient does have multiple other medical problems including congestive heart failure with a EF of around 40 to 45% chest x-ray showing some pulmonary edema and BNP of 1700. Patient does not have any fever chills presently on BiPAP at this time. Patient is on Bumex 2 mg twice a day as an outpatient. Patient does have mild pedal edema on exam. Patient does use oxygen at baseline. Patient is mostly bedbound bilateral does have bilateral foot drop has history of cerebrovascular accident as well in the past 12/14/2023 Patient is evaluated today in follow up on the medical floor. Patient has been continued on the bipap overnight. Currently down to 4L of oxygen, and reports not wearing any home oxygen. Patients CO2 is 46. Patient remains on IV lasix 40 mg Q12 hour. Patient has been started on IV heparin bridge as she has been subtherapeutic on warfarin. CO2 is 46 today. 12/15/2023 Patient is evaluated today in follow-up on the medical floor. She has been continued on BiPAP overnight currently on nasal cannula awake alert oriented. Remains on IV heparin, INR today is 2.5. Sodium levels 136 potassium 3.0 today. 12/16/2023 Patient is evaluated today in follow-up, nursing staff reports a another episode of possible seizure-like activity. Patient is not appear to be having any type of postictal state. Neurology was consulted. she is continued on Keppra 1000 mg twice a day and we will check a Keppra level. States that she has not had a seizure in quite a long time. She continues on IV Lasix 40 mg every 12 hours with strict intake and output monitoring. Today is 2.4, sodium 137, potassium 3.3, CO2 of 42, BUN of 14, creatinine of 0.73. Calcium of 8.1. Review of Systems Constitutional: Denied any fatigue denied any fever. Cardio vascular: denied any chest pain, palpitations Gastrointestinal: denied any nausea, vomiting, diarrhea Pulmonary: Denied any shortness of breath cough Neurologic denied any new focal deficits All inpatient medications were reviewed and appropriate changes in these medications as dictated in the interval history and assessment and plan. PHYSICAL EXAMINATION: GENERAL: Morbidly obese drowsy oriented x 3, patient is on nasal cannula. HEENT: Pupils are round and equally reacting to light. EOMI. No scleral icterus. No conjunctival pallor. Normocephalic, atraumatic. No pharyngeal erythema. No thyromegaly. CARDIOVASCULAR: S1 and S2 present. No murmurs, rubs, or gallops. PULMONARY: Good air entry with mild expiratory wheezing on exam ABDOMEN: Soft, nontender, nondistended, normoactive bowel sounds. No palpable organomegaly. MUSCULOSKELETAL: No joint swelling or deformity. EXTREMITIES: No cyanosis, clubbing, or my lower EXTR bilateral pedal edema NEUROLOGICAL: Gross neurological examination did not reveal any focal deficits. SKIN: No rashes. Assessment and plan -Acute hypoxic and hypercapnic respiratory failure on chronic hypercapnic respiratory failure and is is probably because of obesity sleep apnea and mild bronchitis may have contributed to CO2 retention Batient is on BiPAP at HS -Acute hypoxic respiratory failure secondary to congestive heart failure chronic systolic function EF of around 40 to 45% patient on IV Lasix which will be continued with strict I's and O's. Patient also has mild pulmonary hypertension with severely dilated LV and severe tricuspid regurgitation. Cardiology Adjusting medications have added lisinopril secondary to the new cardiomyopathy -Hypokalemia from diuresis will supplement -Altered mental status secondary to acute metabolic encephalopathy and elevated CO2 levels. Neurology was consulted for possible seizure-like activity patient is maintained on Keppra on an outpatient basis we will check a serum Keppra level. -Respiratory acidosis secondary to CO2 retention 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 -History of CVA in the past -Seizure disorder for which patient is on Keppra which will be resumed -Hyperlipidemia -Obesity and sleep apnea -Chronic medical debility -Foot drop -Peripheral neuropathy for which patient is on gabapentin which will be resumed DVT prophylaxis: Lovenox The impression and plan of care has been dictated by Lin Villalobos, Nurse Practitioner as directed. Dr. Dianna MD I have performed a history and physical examination and medical decision making of this patient, discussed the same with the dictator, and agree with the dictators assessment and plan as written, documented as a scribe. Based on total visit time, I have performed more than 50% of this visit. Objective - Vital Signs Vital signs: Vital Signs Temp 98.8 F 12/16/23 03:24 Pulse 92 12/16/23 07:53 Resp 18 12/16/23 03:24 BP 114/52 12/16/23 03:24 Pulse Ox 95 12/16/23 03:24 FiO2 40 12/15/23 23:38 Intake & Output 12/15/23 12/16/23 12/16/23 19:59 06:59 18:59 Intake Total Output Total Balance Weight Intake: IV Invasive Line 1 Invasive Line 2 Oral Output: Urine Other: Voiding Method # Bowel Movements - Labs CBC & Chem 7: 12/14/23 07:27 12/16/23 06:01 Labs: Abnormal Lab Results - Last 24 Hours (Table) 12/15/23 12/16/23 12/16/23 Range/Units 09:32 06:01 06:01 PT 23.5 H (10.0-12.5) sec INR 2.4 H (<1.2) Sodium 136 L (137-145) mmol/L Potassium 3.0 L 3.3 L (3.5-5.1) mmol/L Chloride 89 L 91 L (98-107) mmol/L Carbon Dioxide 42 H* 42 H* (22-30) mmol/L BUN 18 H (7-17) mg/dL Glucose 132 H 101 H (74-99) mg/dL Calcium 8.2 L 8.1 L (8.4-10.2) mg/dL Microbiology - Last 24 Hours (Table) 12/13/23 03:35 Blood Culture - Preliminary Blood Assessment and Plan Time with Patient: Less than 30
[2023-12-16] MEDS: WARFARIN 3 MG TAB PO ONE (17:37)
--- NOTE | 2023-12-16 18:18 | CT ---
EXAMINATION TYPE: CT brain wo con DATE OF EXAM: 12/16/2023 COMPARISON: 03/03/2021 INDICATION: AMS DLP: 1145.4 mGycm, Automated exposure control for dose reduction was used. CONTRAST: None CT of the brain is performed utilizing 3 mm thick sections through the posterior fossa and 3 mm thick sections through the remaining calvarium. Study is performed within 24 hours of arrival to the hosp [facility]. No abnormal hyperdensity is present to suggest an acute intracranial hemorrhage. No mass lesion is evident. No acute infarcts are evident. There is a lacunar infarct within the posterior right basal ganglion e xtending to the periventricular white matter. This is stable from comparison. Tiny lacunar infarct wi thin the inferior left basal ganglion present previously. Ventricles and sulci are appropriate for the patient age. Paranasal sinuses and mastoid air cells within the [id number] are clear. IMPRESSION: 1. No acute intracranial process. Follow up MRI can be performed as clinically indicated. 2. Stable lacunar infarcts bilateral basal ganglion. [facility], Workstation: [facility], 12/16/2023 6:16 PM
--- NOTE | 2023-12-17 00:24 | P.CNNES ---
History of Present Illness Consult date: 12/16/23 Requesting physician: Lin Villalobos Reason for Consult: increased confusion, questionable seizure History of Present Illness: Patient is a 73-year-old female came to the hospital by ambulance on 12/13/2023 for altered unresponsiveness. Only sitter was present today. Family members were not available. Patient has history of seizure disorder, CVA with residual left hemiplegia, atrial fibrillation on Coumadin, mitral valve replacement, CHF, hyperlipidemia, admitted with seizure-like activity. Patient has history of CVA with left hemiplegia about 20 years ago. She currently resides in [facility]. Patient also has developed altered mental status. She has been having hallucinations, constantly talking to people when nobody is there. This prompted neurology consultation. Patient at present is constantly mumbling, speaking, even nobody is in the room. As per EMS flow sheet, when EMS arrived, patient is morbidly obese in her bed unresponsive. Patient had palpable radial pulse. Patient was drooling around her mouth and looks to have secretions in her oropharynx. Due to obesity, her chin appears to be against her chest and her airway not patent. Sectioning her oropharynx, the patient open her eyes to the stimuli. Skin was warm, dry but with cyanosis in her fingertips. Patient is morbidly obese but her legs appeared swollen and are extremely dry. No weeping edema noted. Patient was alert and orient x 4. Patient had a previous CVA history and reported left- sided deficits as her normal baseline. Patient began to show signs of improvement with supplemental oxygen and upright position and began to respond with verbal stimuli and was able to intermittently follow commands. 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 Patient's pupils were constricted , therefore she was given Narcan, mental status improved once arriving at [place]. Patient has been afebrile in the hospital. Her blood pressure on arrival was 135/93 pulse rate 105 temperature 98.2. Initial blood test shows hemoglobin 10.5 but normal CBC otherwise. INR 1.7. pCO2 98, pH 7.3, HCO3 48. Sodium 136, dioxide 41, normal renal functions. AST 37 ALT 10. Troponins negative. Pat ient's INR was 2.5 stool occult blood negative. 2D echo revealed dilated left ventricle with moderate LV dysfunction with EF about 40%. Severely dilated right atrium, left atrium and right ventricle. Mechanical mitral valve study quality is suboptimal for optimal evaluation of the prosthetic valve. Severe TR. Patient has been seen by Dr. Thompson on 03/05/2021 for altered mental status likely due to metabolic encephalopathy, electrolyte imbalance and elevated BUN. Patient has history of seizure disorder more than 20 years ago and last seizure was few years ago. Patient also had an EEG on 03/04/2021, reviewed by Dr. Thompson which was showing background slowing suggestive of moderate encephalopathy. No focal slowing or epileptiform discharges were seen. Review of Systems All pertinent positive and negative review of systems vision the HPI, otherwise unremarkable. Patient is bedbound. Past Medical History Past Medical History: Atrial Fibrillation, Coronary Artery Disease (CAD), CVA/TIA, Hyperlipidemia, Pneumonia, Seizure Disorder Additional Past Medical History / Comment(s): FALLS, CONCUSSION, STROKE AFFECTED LT SIDE UNABLE TO USE LT ARM AND LT LE FLACCID. LT SHOULDER FRACTURE 2015, 2018, BAKERS BEHIND RT KNEE History of Any Multi-Drug Resistant Organisms: None Reported Past Surgical History: Appendectomy, Cardiac Valve Replacement, Cholecystectomy, Heart Catheterization, Tubal Ligation Additional Past Surgical History / Comment(s): COLONOSCOPY, STATED HAD A "MITRAL VALVE REPLACEMENT" Past Anesthesia/Blood Transfusion Reactions: No Reported Reaction Past Psychological History: Depression Smoking Status: Never smoker Past Alcohol Use History: None Reported Past Drug Use History: None Reported - Past Family History Father Family Medical History: Cancer Additional Family Medical History / Comment(s): BRAIN AND LUNG CANCER Mother Family Medical History: Coronary Artery Disease (CAD), Dementia Additional Family Medical History / Comment(s): PT COULDN'T REMEMBER WHAT MOM FROM Medications and Allergies Home Medications Medication Instructions Recorded Confirmed Type Atorvastatin Calcium [Lipitor] 40 mg PO HS 09/06/15 12/13/23 History levETIRAcetam 1,000 mg PO BID 11/23/16 12/13/23 History Sennosides [Senna] 8.6 mg PO BID 10/01/17 12/13/23 History Baclofen 5 mg PO BID 03/03/21 12/13/23 History Metoprolol Tartrate [Lopressor] 12.5 mg PO BID 03/03/21 12/13/23 History Sertraline [Zoloft] 50 mg PO DAILY 03/03/21 12/13/23 History Potassium Chloride ER [K-Dur 20] 20 meq PO BID #0 03/05/21 12/13/23 Rx Morphine Sulfate ER [Ms Contin] 30 mg PO HS #3 tab 06/23/22 12/13/23 Rx Betamethasone Dipropionate 1 applic TOPICAL Q24H PRN 12/13/23 12/13/23 History [Betamethasone Dipropionate 0.05% Cream] Bumetanide [BUMEX] 2 mg PO BID 12/13/23 12/13/23 History Cetirizine HCl [Zyrtec] 10 mg PO DAILY 12/13/23 12/13/23 History Docusate Sodium [Dok] 100 mg PO DAILY 12/13/23 12/13/23 History Docusate [Colace] 100 mg PO BID PRN 12/13/23 12/13/23 History Gabapentin 600 mg PO BID 12/13/23 12/13/23 History Miconazole Nitrate [Lotrimin AF 1 applic TOPICAL BID 12/13/23 12/13/23 History Powder] Midodrine [ProAmatine] 5 mg PO TID 12/13/23 12/13/23 History Naloxone HCl 0.4 mg IM DIRECTED PRN 12/13/23 12/13/23 History Naloxone HCl [Narcan] 4 mg NASAL DIRECTED PRN 12/13/23 12/13/23 History Pramipexole [Mirapex] 0.5 mg PO HS 12/13/23 12/13/23 History Spironolactone [Aldactone] 50 mg PO DAILY 12/13/23 12/13/23 History Warfarin Sodium 2 mg PO HS 12/13/23 12/13/23 History polyethylene glycoL 3350 [Miralax] 17 gm PO DAILY 12/13/23 12/13/23 History traMADol HCl [Ultram] 50 mg PO BID PRN 12/13/23 12/13/23 History Allergies Allergy/AdvReac Type Severity Reaction Status Date / Time codeine Allergy Chest Pain Verified 12/13/23 03:19 lorazepam [From Ativan] AdvReac GIVES THE Verified 12/13/23 03:19 OPPOSITE EFFECT Physical Examination - Vital Signs Vital Signs: Vital Signs Temp Pulse Pulse Resp BP Pulse Ox FiO2 12/16/23 11:17 104 H 12/16/23 11:09 100 12/16/23 08:00 98.3 F 110 H 18 94/64 94 L 12/16/23 07:53 92 12/16/23 07:44 88 12/16/23 03:24 98.8 F 93 18 114/52 95 12/15/23 23:38 97.9 F 93 18 117/60 99 40 12/15/23 23:08 40 12/15/23 20:00 98.0 F 75 18 138/63 95 12/15/23 19:02 87 12/15/23 18:49 88 12/15/23 16:00 98.4 F 90 18 107/69 96 12/15/23 14:00 90 18 Intake and Output 12/15/23 12/16/23 12/16/23 23:59 06:59 14:59 Intake Total 180 Output Total 400 Balance -220 Intake: IV Invasive Line 1 Invasive Line 2 Oral 180 Output: Urine 400 Other: Voiding Method External Catheter # Bowel Movements 1 Weight Patient is an elderly female, in no acute distress. Patient is delirious, talking to herself, mumbles frequently. Patient is alert awake oriented to time place and person. She knows it's the month of December and year is 2023. She thinks it is (actually Sunday). She knows that she is in [facility] in [place] in [place]. Re: President, patient states "nobody is President, as there is a woman and her Trump for the president". Speech and language functions are normal. Patient can name most objects presented like index finger, ear but not the ear lobe. She was able to name knuckles and repeats very well. No aphasia although patient is slightly slurring at times. Attention, concentration is decreased and fund of knowledge is limited. Patient Evon BCs statement like "Jayjay is outside", "she is out there". On cranial nerve examination, pupils are equal, round and reacting to light, visual keith are full on confrontation, with no neglect on double simultaneous stimulation. Extraocular muscles are intact with no nystagmus. Patient has very subtle mild left facial asymmetry. Her tongue protrudes to the midline. Palatal elevation and sensation normal, hearing and shoulder shrug normal decreased on the left, facial sensation normal. On muscle strength testing, patient has completely hemiplegic on the left side. She has only trace movement of the left shoulder and very rare wiggling of the left hand finger. 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 Her left hip flexion is trace, ankle dorsiflexion trace. On the right side, right hip flexion is 2+, ankle dorsiflexion 4+5-. Right upper extremity appears normal. She has complete plantar flexion of the left foot. Deep tendon reflexes are asymmetric (right/left) biceps 1/2, brachioradialis 1/2, knees 0/0, plantar is downgoing on the right, flat on the left. Sensory to touch is equal with no neglect on double simultaneous stimulation. Cerebellar function showed no ataxia for [id number] testing on the right, cannot do on the left. Tone is severely increased in the left arm and left leg, and bulk of muscles normal. Gait deferred.. On general examination, there is no carotid bruit or murmur, S1-S2 audible. Chest is clear on consultation. Abdomen is soft nontender. No organomegaly, bowel sounds present. Patient has peripheral edema bilaterally. She has some scaling of the skin of the left side. Results - Laboratory Findings CBC and BMP: 12/14/23 07:27 12/16/23 06:01 Abnormal Lab Findings: Abnormal Labs 12/13/23 12/13/23 12/13/23 03:15 03:15 03:15 RBC 3.32 L Hgb 10.5 L Hct MCV 103.9 H MCHC 30.4 L Plt Count Neutrophils # Lymphocytes # PT 17.3 H INR 1.7 H APTT VBG pH VBG pCO2 VBG HCO3 Sodium 136 L Potassium Chloride 91 L Carbon Dioxide 41 H* BUN Glucose 159 H Calcium 8.2 L AST 37 H Alkaline Phosphatase 178 H 12/13/23 12/13/23 12/13/23 03:38 19:02 19:02 RBC 3.39 L Hgb 11.0 L Hct MCV 103.5 H MCHC Plt Count 130 L Neutrophils # 8.3 H Lymphocytes # 0.5 L PT 18.4 H INR 1.8 H APTT 62.9 H VBG pH 7.30 L VBG pCO2 98 H* VBG HCO3 48 H Sodium Potassium Chloride Carbon Dioxide BUN Glucose Calcium AST Alkaline Phosphatase 12/14/23 12/14/23 12/14/23 07:27 07:27 07:27 RBC 3.01 L Hgb 9.6 L Hct 30.7 L MCV 102.0 H MCHC Plt Count 146 L Neutrophils # Lymphocytes # 0.5 L PT 22.7 H INR 2.3 H APTT 67.4 H VBG pH VBG pCO2 VBG HCO3 Sodium 136 L Potassium Chloride 88 L Carbon Dioxide 46 H* BUN 18 H Glucose 133 H Calcium 8.0 L AST Alkaline Phosphatase 12/15/23 12/15/23 12/15/23 06:40 08:11 09:32 RBC Hgb Hct MCV MCHC Plt Count Neutrophils # Lymphocytes # PT 24.7 H INR 2.5 H APTT 63.1 H VBG pH VBG pCO2 VBG HCO3 Sodium 136 L Potassium 3.0 L Chloride 89 L Carbon Dioxide 42 H* BUN 18 H Glucose 132 H Calcium 8.2 L AST Alkaline Phosphatase 12/16/23 12/16/23 06:01 06:01 RBC Hgb Hct MCV MCHC Plt Count Neutrophils # Lymphocytes # PT 23.5 H INR 2.4 H APTT VBG pH VBG pCO2 VBG HCO3 Sodium Potassium 3.3 L Chloride 91 L Carbon Dioxide 42 H* BUN Glucose 101 H Calcium 8.1 L AST Alkaline Phosphatase Assessment and Plan Assessment: * Altered mental status, likely due to metabolic encephalopathy. Reasons multifactorial as mentioned below * Episode of unresponsiveness prior to arrival, rule out seizure. * History of seizure disorder, rule out breakthrough seizure * History of CVA 20 years ago, with residual complete left hemiplegia * Hypercarbia, with pCO2 98 * Macrocytic anemia * Atrial fibrillation on Coumadin * CHF * History of mitral valve replacement on Coumadin * Morbid obesity * Bedbound status Plan: * Patient is currently on Keppra 1000 mg twice a day. This will be continued. Keppra level pending. * Check EEG to evaluate for epileptiform activity. * CT head was performed, which revealed no acute intracranial process. Stable lacunar infarcts bilateral basal ganglion. I personally reviewed CT head, agree with the findings. * Continue Coumadin for atrial fibrillation. INR therapeutic 2.4. * Check B12, folate, MMA * Pulmonary medicine onboard for chronic hypoxemic and hypercapnic respiratory failure. Patient also has CHF. * Dr. rPanav Thompson to resume neurology service in the morning. * Thank you for the consult. Time with Patient: Greater than 30
[2023-12-17 08:31] LABS: INR 2.4 (<1.2); Prothrombin Time 23.5 sec (10.0-12.5)
[2023-12-17 08:41] LABS: African American GFR (CKD) >90 (>60 ml/min/1.73 sqM); Blood Urea Nitrogen 13 mg/dL (7-17); Calcium 8.2 mg/dL (8.4-10.2); Chloride 93 mmol/L (98-107); Glucose 112 mg/dL (74-99); Non-African American GFR(CKD) 81 (>60 ml/min/1.73 sqM); Potassium 3.2 mmol/L (3.5-5.1); Sodium 138 mmol/L (137-145)
[2023-12-17 08:47] LABS: Anion Gap 4 mmol/L
[2023-12-17 08:49] LABS: Carbon Dioxide 41 mmol/L (22-30)
[2023-12-17] MEDS: POTASSIUM CHLORIDE ER 20 MEQ TAB.ER PO SCH (10:06)
[2023-12-17] MEDS: metOLazone 5 MG TAB PO SCH (10:06)
[2023-12-17] MEDS: METOPROLOL TARTRATE 25 MG TAB PO SCH (10:06)
[2023-12-17] MEDS: ASPIRIN 81 MG PO SCH (10:06)
[2023-12-17] MEDS: FOLIC ACID 1 MG TAB PO SCH (13:42)
[2023-12-17] MEDS: CEPHALEXIN 500 MG CAP PO SCH (13:42)
--- NOTE | 2023-12-17 14:37 | P.PN ---
Subjective Progress Note Date: 12/17/23 73-year-old female originally seen by Dr. Carroll in the emergency room, and then followed by Dr. Cárdenas afterwards. This is a 73-year-old female who presented with shortness of breath and difficulty breathing. The patient was seen in the emergency department, on December 12. The patient was very confused when she first came in, and was a very poor historian. The patient was initially placed on BiPAP, with settings of 16/6, and 40%. She remains on BiPAP. Patient has a history of atrial fibrillation, coronary disease, CVA, hyperlipidemia, pneumonia, and seizure disorder. The patient apparently also has a previous history of either mitral valve replacement or repair. She is a lifelong non-smoker. Laboratory data includes a white count 6.7, hemoglobin 10.5, hematocrit 34.5, and a platelet count of 103,000. PT was 17.3 with an INR of 1.7. Venous blood gas showed a pCO2 of 98, and a pH of 7.3. Sodium 136, potassium 4.3, chlorides 91, CO2 41, BUN and creatinine were 16 and 0.66. Glucose 159. Calcium 8.2. Troponin was 0.012. N-terminal proBNP was 1760. Chest x-ray showed sternal wires consistent with previous open heart surgery. Cardiac silhouette is enlarged. Costophrenic angles are blunted. This x-ray in my opinion is consistent with pulmonary vascular congestion. EKG shows evidence of atrial fibrillation. Progress note dated December 14, 2023. 73-year-old female seen in room 355. She was initially evaluated in the emergency department. She came in with confusion, and she was a very poor historian. The patient was placed on BiPAP, initially with settings of 16/6, 40%. She has a history of atrial fibrillation, coronary disease, CVA, hyperlipidemia, pneumonia, and seizure disorder. Currently, the patient is on 3 L of oxygen. The BiPAP is in the room. Is not clear to me whether or not she used it last night. She does continue on IV heparin. Current labs include a white count 5.6, hemoglobin 9.6, hematocrit 30.7, and a platelet count of 146,000. PT was 22.7. INR 2.3. PTT was 67.4. Sodium 136, potassium 3.7, chloride 88, CO2 46, BUN 18, creatinine 0.66. Troponins were 0.015, and 0.015. Progress note dated December 15, 2023. 73-year-old female seen again in room 355. The patient is resting comfortably in bed. She denies any complaints. Currently, she is on 2 L of oxygen. She is getting IV heparin. She did use BiPAP last night, with settings of 16/6, and 40%. The patient continues in atrial fibrillation. Current labs include a PTT of 63.1. Sodium 136, potassium 3, chloride 89, CO2 42, BUN 18, creatinine 0.69. Calcium is 8.2. Progress note dated December 16, 2023. 73-year-old female again seen in room 355. The patient is not receiving any IV fluids. The patient is on O2 at 2 L. She did use her BiPAP device last night, with settings of 16/6, and 40%. The patient feels like she is improved. She denies any worsening or more severe shortness of breath, cough, wheezing, chest tightness, or phlegm production. She also denies any chest pain or pressure. Current labs include a PT of 23.5 and an INR of 2.4. Sodium 137, potassium 3.3, chlorides 91, CO2 42, BUN 14, creatinine 0.73. Urine is negative. 12/17/2023, patient is being seen for a follow-up. This patient is awake and alert. She is currently off BiPAP. Overnight, she was on a BiPAP pressure of 16 over 6 cm of water and the patient is currently on 3 L of oxygen by nasal cannula. She is a senior care resident and she is quite debilitated from the previous CVA and she does have left-sided hemiplegia and chronic lower extremity edema. She was taken off the IV Lasix and the patient is currently on Bumex 1 mg p.o. twice a day. The patient also had a echocardiogram that showed a ejection fraction of 40%. Severe RV dilatation with mild pulmonary hype rtension. The patient also has a mechanical valve/mitral and the patient remains on long-term anticoagulant with warfarin. INR is therapeutic at this point in time. Along with Bumex, the patient is on Zaroxolyn 5 mg p.o. on a daily basis. Rest of the medications remain unchanged. No significant shortness of breath. Repeat CAT scan of the brain done on 12/16/2023 showed stable lacunar infarcts involving the basal ganglia. No acute intracranial abnormalities noted. Other comorbidities include chronic atrial fibrillation, coronary artery disease, hyperlipidemia and seizure disorders. Objective - Vital Signs Vital signs: Vital Signs Temp 97.8 F 12/17/23 08:00 Pulse 84 12/17/23 08:00 Resp 14 12/17/23 08:00 BP 131/59 12/17/23 08:00 Pulse Ox 95 12/17/23 08:00 FiO2 40 12/17/23 03:41 Intake & Output 12/16/23 12/17/23 12/17/23 18:59 06:59 18:59 Intake Total 180 20 10 Output Total 400 500 Balance -220 -480 10 Weight 152 kg Intake: IV 20 10 Invasive Line 3 20 10 Oral 180 0 Output: Urine 400 500 Other: Voiding Method External Catheter External Catheter # Bowel Movements 1 - Exam No acute distress, much more awake and alert. Currently on 2 L of oxygen. The patient is morbidly obese with a BMI of 54.1 HEENT examination is grossly unremarkable. Neck supple. Full range of motion. No adenopathy thyromegaly or neck vein distention. Cardiovascular examination reveals an irregular rhythm and rate. S1-S2 normal. No S3 or S4. No discernible murmur noted. Heart sounds are distant. Lungs reveal diminished bilateral breath sounds. Scattered rhonchi. Scattered crackles are also noted. No wheezes. Breath sounds are equal. Abdomen obese, but soft. No masses or tenderness. Extremities are intact. No cyanosis or clubbing. Lower extremity edema noted. The patient has chronic contractures in the lower extremity with chronic lower extremity edema Skin is without rash or lesion. Neurologic examination reveals left-sided hemiplegia related to her previous CVA. - Labs CBC & Chem 7: 12/14/23 07:27 12/17/23 08:02 Labs: Abnormal Lab Results - Last 24 Hours (Table) 12/16/23 12/16/23 12/17/23 Range/Units 14:21 14:21 08:02 PT 23.5 H (10.0-12.5) sec INR 2.4 H (<1.2) Potassium (3.5-5.1) mmol/L Chloride (98-107) mmol/L Carbon Dioxide (22-30) mmol/L Glucose (74-99) mg/dL Calcium (8.4-10.2) mg/dL Ammonia 37 H (<30) umol/L Folate 4.20 L (4.40-31.00) ng/mL 12/17/23 Range/Units 08:02 PT (10.0-12.5) sec INR (<1.2) Potassium 3.2 L (3.5-5.1) mmol/L Chloride 93 L (98-107) mmol/L Carbon Dioxide 41 H* (22-30) mmol/L Glucose 112 H (74-99) mg/dL Calcium 8.2 L (8.4-10.2) mg/dL Ammonia (<30) umol/L Folate (4.40-31.00) ng/mL Microbiology - Last 24 Hours (Table) 12/13/23 03:35 Blood Culture - Preliminary Blood Assessment and Plan Plan: Acute on chronic hypoxemic and hypercapnic respiratory failure, likely multifactorial, in part related to congestive heart failure, as well as possible sleep apnea syndrome/Pickwickian syndrome. The patient is currently off BiPAP and the patient is currently on oxygen at 3 L/min nasal cannula. Awake and alert. No signs of any CO2 narcosis. Systolic congestive heart failure, with an ejection fraction of 40 to 45%. Hypercarbic encephalopathy, treated with diuretics, and BiPAP therapy and the patient's mental status is adequate for now. History of atrial fibrillation with a relatively controlled ventricular response rate, rate is under better control and the patient is on anticoagulation with warfarin History of mitral valve replacement. The patient has a mechanical valve and the patient has been maintained on long-term anticoagulation with warfarin and repeat INR is therapeutic History of hyperlipidemia. History of CVA. Repeat CAT scan of the brain on 12/16/2023 shows stable findings and the patient has chronic left sided hemiplegia History of tricuspid regurgitation. History of seizure disorder. Chronic lower extremity edema Plan: Continue BiPAP overnight, currently on 3 L of oxygen by nasal cannula Continue anticoagulation with warfarin with a therapeutic PT/INR Continue Bumex and Zaroxolyn and keep the patient negative fluid balance Overall respiratory status is stable and the patient has no signs of any CO2 narcosis Patient is a senior care resident and the patient is quite debilitated Will continue to follow
--- NOTE | 2023-12-17 14:55 | P.PN ---
Subjective Progress Note Date: 12/17/23 The patient is a pleasant 73-year-old female patient with extensive cardiovascular history consistent of valvular heart disease status post mitral valve replacement using mechanical valve as well as permanent atrial fibrillation and history of stroke as well as cardiomyopathy with a EF around 40% as well as morbid obesity and hypertension and dyslipidemia and pulmonary hypertension was admitted to the hospital with a change in mental status and also she was admitted with acute hypoxic respiratory failure with a component of heart failure. The echo revealed impaired LV function with EF around 40% December 15, 2023 Patient was seen and evaluated this morning. She still hypoxic. She still hypervolemic with bilateral lower extremities edema. The echo revealed impaired LV function with EF around 40% with severe pulmonary hypertension antiradial right ventricle. The mitral valve appears to be functioning normally which is a mechanical valve which she continues to be on Coumadin with subtherapeutic INR and she continues to be on heparin for bridging. Pharmacy to manage INR. Examination is remarkable for severe bilateral lower extremity edema and diminished breathing sounds bilaterally and irregular rhythm with a systolic murmur at the left upper sternal border December 16, 2023 The patient was seen and evaluated this morning. Overall from the cardiovascular standpoint of view, she seems better but she still have bilateral lower extremities edema which we do not know was her baseline which she continues to be on Lasix IV and GFR continues to be normal but potassium is low which is going to be replaced. From the cardiovascular standpoint of view, we will continue the current medical regimen and continue IV Lasix for additional 12 to 24 hours and consider switching the patient to oral diuretics by tomorrow. INR yesterday was therapeutic and she is on Coumadin has been managed by the pharmacy. The physical examination is remarkable for mechanical first heart sounds with diminished breathing sounds bilaterally and bilateral lower extremities edema worse on the left than the right 12/16 Patient has been maintained on IV Lasix 40 mg every 12 hours. She has a negative fluid balance. Weights do not appear accurate. Repeat blood work reveals potassium 3.2, creatinine 0.75. INR 2.4. Ammonia level yesterday was 37. Potassium has been replaced. CAT scan of the brain showed no acute intracranial process. Stable lacunar infarcts bilaterally basal ganglion. Echocardiogram performed 12/13/2023 reveals EF 40%. Severely dilated right atrium left atrium and left ventricle. Mechanical mitral valve study quality is suboptimal. Severe tricuspid regurgitation. The physical examination is remarkable for mechanical first heart sounds with diminished breathing sounds bilaterally and bilateral lower extremities edema worse on the left than the right Assessment Acute hypoxic respiratory failure likely to be multifactorial Acute heart failure exacerbation secondary to HFrEF Permanent atrial fibrillation with controlled heart rate Status post mitral valve placement using mechanical valve History of stroke Multiple comorbid conditions including morbid obesity as well as hypertension and dyslipidemia Cardiomyopathy with EF around 40% Severe pulmonary hypertension Plan Continue the current medical regimen: Aspirin 81 mg daily, atorvastatin 40 mg at bedtime Continue patient on lisinopril 2.5 mg daily, Lopressor 25 mg twice daily, spironolactone 50 mg daily Discontinue IV Lasix and start patient on Bumex 1 mg twice daily Add metolazone 5 mg daily Continue anticoagulation with Coumadin, pharmacy dosing Monitor LJ, daily weights, electrolytes and renal function. Plan to monitor patient 1 more day and possible discharge tomorrow. nal function Further recommendations as patient progresses. Nurse practitioner note has been reviewed, I agree with documented findings and plan of care. Patient was seen and examined. Objective - Vital Signs Vital signs: Vital Signs Temp 97.8 F 12/17/23 08:00 Pulse 84 12/17/23 08:00 Resp 14 12/17/23 08:00 BP 131/59 12/17/23 08:00 Pulse Ox 95 12/17/23 08:00 FiO2 40 12/17/23 03:41 Intake & Output 12/16/23 12/17/23 12/17/23 18:59 06:59 18:59 Intake Total 180 20 Output Total 400 500 Balance -220 -480 Weight 152 kg Intake: IV 20 Invasive Line 3 20 Oral 180 0 Output: Urine 400 500 Other: Voiding Method External Catheter External Catheter # Bowel Movements 1 - Labs CBC & Chem 7: 12/14/23 07:27 12/17/23 08:02 Labs: Abnormal Lab Results - Last 24 Hours (Table) 12/16/23 12/16/23 12/17/23 Range/Units 14:21 14:21 08:02 PT 23.5 H (10.0-12.5) sec INR 2.4 H (<1.2) Potassium (3.5-5.1) mmol/L Chloride (98-107) mmol/L Carbon Dioxide (22-30) mmol/L Glucose (74-99) mg/dL Calcium (8.4-10.2) mg/dL Ammonia 37 H (<30) umol/L Folate 4.20 L (4.40-31.00) ng/mL 12/17/23 Range/Units 08:02 PT (10.0-12.5) sec INR (<1.2) Potassium 3.2 L (3.5-5.1) mmol/L Chloride 93 L (98-107) mmol/L Carbon Dioxide 41 H* (22-30) mmol/L Glucose 112 H (74-99) mg/dL Calcium 8.2 L (8.4-10.2) mg/dL Ammonia (<30) umol/L Folate (4.40-31.00) ng/mL Microbiology - Last 24 Hours (Table) 12/13/23 03:35 Blood Culture - Preliminary Blood
--- NOTE | 2023-12-17 15:32 | P.PN ---
Subjective Progress Note Date: 12/17/23 I am seeing the patient for the first time during this admission. Please refer to Dr. Grider's note for further details. Per nurse patient's mentation has been fluctuating. Her ammonia level is only elevated of about 37 normal is less than 30. Objective - Vital Signs Vital signs: Vital Signs Temp 98 F 12/17/23 12:00 Pulse 76 12/17/23 12:00 Resp 16 12/17/23 12:00 BP 128/76 12/17/23 12:00 Pulse Ox 94 L 12/17/23 12:00 FiO2 40 12/17/23 03:41 Intake & Output 12/16/23 12/17/23 12/17/23 18:59 06:59 18:59 Intake Total 180 20 20 Output Total 904 420 5386 Balance -220 480 -1580 Weight 152 kg Intake: IV 20 20 Invasive Line 3 20 10 Invasive Line 4 10 Oral 180 0 0 Output: Urine 203 454 9455 Other: Voiding Method External Catheter External Catheter # Bowel Movements 1 0 - Exam General: Lying in bed and is not in acute distress. Neuro: Limited. Is new but is awake both voice. She was oriented to self, month and she stated the year is 2024. She stated that she is in the [facility] facility. She is following simple commands but needs to be redirected. No facial weakness. No dysarthria. Motor: Patient is listing the right side above gravity left side unable because of old stroke. - Labs CBC & Chem 7: 12/14/23 07:27 12/17/23 08:02 Labs: Abnormal Lab Results - Last 24 Hours (Table) 12/16/23 12/17/23 12/17/23 Range/Units 14:21 08:02 08:02 PT 23.5 H (10.0-12.5) sec INR 2.4 H (<1.2) Potassium 3.2 L (3.5-5.1) mmol/L Chloride 93 L (98-107) mmol/L Carbon Dioxide 41 H* (22-30) mmol/L Glucose 112 H (74-99) mg/dL Calcium 8.2 L (8.4-10.2) mg/dL Folate 4.20 L (4.40-31.00) ng/mL Microbiology - Last 24 Hours (Table) 12/13/23 03:35 Blood Culture - Preliminary Blood Assessment and Plan Assessment: * Altered mental status, likely due to metabolic encephalopathy. Also rule out seizure. Reasons multifactorial as mentioned below * Episode of unresponsiveness prior to arrival, rule out seizure. 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 * Macrocytic anemia and has Folate deficiency. * Atrial fibrillation on Coumadin * CHF * History of mitral valve replacement on Coumadin * Morbid obesity * Bedbound status Plan: * Patient is currently on Keppra 1000 mg twice a day. I went up to 1500mg bid. Keppra level pending. * Check EEG to evaluate for epileptiform activity. * CT head was performed, which revealed no acute intracranial process. Stable lacunar infarcts bilateral basal ganglion. * Continue Coumadin for atrial fibrillation. INR therapeutic 2.4. * B12: 436, folate: 4.20 and I started the patient on folic acid 1mg daily * Pending MMA * Pulmonary medicine onboard for chronic hypoxemic and hypercapnic respiratory failure. Patient also has CHF. The plan is discussed with the nurse. Time with Patient: Less than 30
[2023-12-17] MEDS: WARFARIN 2 MG TAB PO SCH (17:33)
[2023-12-17] MEDS: levETIRAcetam 500 MG TAB PO STA (17:33)
[2023-12-17] MEDS: BUMETANIDE 1 MG TAB PO SCH (17:33)
--- NOTE | 2023-12-17 17:41 | P.PN ---
Subjective Progress Note Date: 12/17/23 Patient is a pleasant 73-year-old female was sent in because of decreased level of consciousness with concerns of aspiration. Patient was also short of breath patient is found to be in hypercapnic respiratory failure with pH of 7.3 and pCO2 of 90 and pO2 of around 70. Patient does have history of obstructive sleep apnea morbidly obese female uses CPAP machine at nighttime. Patient does have multiple other medical problems including congestive heart failure with a EF of around 40 to 45% chest x-ray showing some pulmonary edema and BNP of 1700. Patient does not have any fever chills presently on BiPAP at this time. Patient is on Bumex 2 mg twice a day as an outpatient. Patient does have mild pedal edema on exam. Patient does use oxygen at baseline. Patient is mostly bedbound bilateral does have bilateral foot drop has history of cerebrovascular accident as well in the past 12/14/2023 Patient is evaluated today in follow up on the medical floor. Patient has been continued on the bipap overnight. Currently down to 4L of oxygen, and reports not wearing any home oxygen. Patients CO2 is 46. Patient remains on IV lasix 40 mg Q12 hour. Patient has been started on IV heparin bridge as she has been subtherapeutic on warfarin. CO2 is 46 today. 12/15/2023 Patient is evaluated today in follow-up on the medical floor. She has been continued on BiPAP overnight currently on nasal cannula awake alert oriented. Remains on IV heparin, INR today is 2.5. Sodium levels 136 potassium 3.0 today. 12/16/2023 Patient is evaluated today in follow-up, nursing staff reports a another episode of possible seizure-like activity. Patient is not appear to be having any type of postictal state. Neurology was consulted. she is continued on Keppra 1000 mg twice a day and we will check a Keppra level. States that she has not had a seizure in quite a long time. She continues on IV Lasix 40 mg every 12 hours with strict intake and output monitoring. Today is 2.4, sodium 137, potassium 3.3, CO2 of 42, BUN of 14, creatinine of 0.73. Calcium of 8.1. 12/17/2023 Patient is evaluated today in follow up on the medical floor. She remains AO x 3 with moments of confusion and neurology was consulted with concern for possible seizure like activity. Patient has been transitioned to oral bumex BID. CO2 elevated at 41 today. Potassium 3.2. Ammonia level 37. Has reddened lump on the right wrist from old IV site with evidence of erythema up the right arm. Review of Systems Constitutional: Denied any fatigue denied any fever. Cardio vascular: denied any chest pain, palpitations Gastrointestinal: denied any nausea, vomiting, diarrhea Pulmonary: Denied any shortness of breath cough Neurologic denied any new focal deficits All inpatient medications were reviewed and appropriate changes in these medications as dictated in the interval history and assessment and plan. PHYSICAL EXAMINATION: GENERAL: Morbidly obese drowsy oriented x 3, patient is on nasal cannula. HEENT: Pupils are round and equally reacting to light. EOMI. No scleral icterus. No conjunctival pallor. Normocephalic, atraumatic. No pharyngeal erythema. No thyromegaly. CARDIOVASCULAR: S1 and S2 present. No murmurs, rubs, or gallops. PULMONARY: Good air entry with mild expiratory wheezing on exam ABDOMEN: Soft, nontender, nondistended, normoactive bowel sounds. No palpable organomegaly. MUSCULOSKELETAL: No joint swelling or deformity. EXTREMITIES: No cyanosis, clubbing, or my lower EXTR bilateral pedal edema NEUROLOGICAL: Gross neurological examination did not reveal any focal deficits. Has old left arm contractures and left foot drop. SKIN: No rashes. Assessment and plan -Acute hypoxic and hypercapnic respiratory failure on chronic hypercapnic respiratory failure and is is probably because of obesity sleep apnea and mild bronchitis may have contributed to CO2 retention Batient is on BiPAP at HS -Acute hypoxic respiratory failure secondary to congestive heart failure chronic systolic function EF of around 40 to 45. Patient also has mild pulmonary hypertension with severely dilated LV and severe tricuspid regurgitation. Cardiology Adjusting medications have added lisinopril secondary to the new cardiomyopathy. Patient has been transitioned to oral bumex BID and cardiology following. -Hypokalemia from diuresis will supplement -Altered mental status secondary to acute metabolic encephalopathy and elevated CO2 levels. Neurology was consulted for possible seizure-like activity patient is maintained on Keppra on an outpatient basis we will check a serum Keppra level. -Respiratory acidosis secondary to CO2 retention -Right arm phlebitis from IV site. Blood cultures repeated started on oral keflex. 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 -History of CVA in the past -Seizure disorder for which patient is on Keppra which will be resumed -Hyperlipidemia -Obesity and sleep apnea -Chronic medical debility -Foot drop -Peripheral neuropathy for which patient is on gabapentin which will be resumed DVT prophylaxis: Lovenox The impression and plan of care has been dictated by Lin Villalobos, Nurse Practitioner as directed. Dr. Dianna MD I have performed a history and physical examination and medical decision making of this patient, discussed the same with the dictator, and agree with the dictators assessment and plan as written, documented as a scribe. Based on total visit time, I have performed more than 50% of this visit. Objective - Vital Signs Vital signs: Vital Signs Temp 97.6 F 12/17/23 03:10 Pulse 89 12/17/23 03:10 Resp 14 12/17/23 03:10 BP 100/58 12/17/23 03:10 Pulse Ox 95 12/17/23 03:10 FiO2 40 12/17/23 03:41 Intake & Output 12/16/23 12/17/23 12/17/23 18:59 06:59 18:59 Intake Total 180 20 Output Total 400 500 Balance -220 -480 Weight 152 kg Intake: IV 20 Invasive Line 3 20 Oral 180 0 Output: Urine 400 500 Other: Voiding Method External Catheter External Catheter # Bowel Movements 1 - Labs CBC & Chem 7: 12/14/23 07:27 12/17/23 08:02 Labs: Abnormal Lab Results - Last 24 Hours (Table) 12/16/23 12/16/23 12/16/23 Range/Units 06:01 14:21 14:21 Potassium 3.3 L (3.5-5.1) mmol/L Chloride 91 L (98-107) mmol/L Carbon Dioxide 42 H* (22-30) mmol/L Glucose 101 H (74-99) mg/dL Calcium 8.1 L (8.4-10.2) mg/dL Ammonia 37 H (<30) umol/L Folate 4.20 L (4.40-31.00) ng/mL Microbiology - Last 24 Hours (Table) 12/13/23 03:35 Blood Culture - Preliminary Blood Assessment and Plan Time with Patient: Less than 30
[2023-12-17] MEDS: QUEtiapine 25 MG TAB PO PRN (23:08)
--- NOTE | 2023-12-17 23:48 | EEG ---
ELECTROENCEPHALOGRAM REPORT CLINICAL HISTORY: This is a 73-year-old woman with history of seizure, who has altered mental status. The video EEG is obtained to evaluate for seizure epileptiform activity. RELEVANT MEDICATIONS: 1. Keppra. 2. Gabapentin. EEG TYPE: This is a routine 21-channel EEG with video using the 10/20 electrode placement system. DESCRIPTION: Wakefulness and drowsiness are obtained. During awake state, the background consists of [id number] voltage of 5.5 to 6 hertz activity. There was no physiological stage 2 sleep architecture. There is no focal slowing. Interictal and ictal is, there is a spike of slow waves over the left frontal as well as spike/polyspike over the left temporal region more than the central lasting between 1 to 8 seconds. No seizures noted during the study. ACTIVATION PROCEDURE: Photic stimulation did not evoke a posterior driving response. There is no abnormality during the photic stimulation. Hyperventilation is not performed. CLINICAL INTERPRETATION: This is an abnormal routine EEG. The background slowing is suggestive of moderate encephalopathy. There are epileptiform discharges over the left frontal as well as left temporal which can increase risk for seizure. No seizures noted during the study. Clinical correlation is recommended. MMODL / IJN: [id number] / POLO
[2023-12-18 07:42] LABS: INR 2.7 (<1.2); Prothrombin Time 26.4 sec (10.0-12.5)
[2023-12-18 10:56] LABS: Basophils % (A) 0 %; Eosinophils # (A) 0.3 k/uL (0-0.7); Eosinophils % (A) 6 %; HCT 32.8 % (34.0-46.0); HGB 10.2 gm/dL (11.4-16.0); Hypochromasia Moderate; Lymphocytes # (A) 0.8 k/uL (1.0-4.8); Lymphocytes % (A) 13 %; MCH 31.5 pg (25.0-35.0); MCHC 31.1 g/dL (31.0-37.0); MCV 101.1 fL (80.0-100.0); Macrocytosis Slight; Mean Platelet Volume 7.9; Monocytes # (A) 0.4 k/uL (0-1.0); Monocytes % (A) 6 %; Neutrophils # (A) 4.4 k/uL (1.3-7.7); Neutrophils % (A) 75 %; Platelet Count 131 k/uL (150-450); RBC 3.24 m/uL (3.80-5.40); RDW 14.4 % (11.5-15.5); WBC 5.9 k/uL (3.8-10.6)
[2023-12-18 11:36] LABS: African American GFR (CKD) >90 (>60 ml/min/1.73 sqM); Blood Urea Nitrogen 18 mg/dL (7-17); Calcium 8.5 mg/dL (8.4-10.2); Chloride 93 mmol/L (98-107); Glucose 112 mg/dL (74-99); Non-African American GFR(CKD) 80 (>60 ml/min/1.73 sqM); Potassium 3.7 mmol/L (3.5-5.1); Sodium 137 mmol/L (137-145)
[2023-12-18 11:50] LABS: Anion Gap 3 mmol/L
[2023-12-18 12:02] LABS: Carbon Dioxide 41 mmol/L (22-30)
--- NOTE | 2023-12-18 12:38 | P.DS ---
Providers Date of admission: 12/13/23 10:43 Attending physician: Vin Ojeda Consults: 12/13/23 10:39 Consult Physician Routine Consulting Provider: Baudilio Thompson Consult Reason/Comments: bipap, hypercarbia Do you want consulting provider notified?: Yes Consult Physician Routine Consulting Provider: Miguel Solano Consult Reason/Comments: chf Do you want consulting provider notified?: Yes 12/16/23 07:37 Consult Physician Routine Consulting Provider: Susana Grider Consult Reason/Comments: increased confusion, questionable seizure Do you want consulting provider notified?: Yes Primary care physician: Jerri Hodgson DO Hospital Course: Final Diagnosis -Acute hypoxic and hypercapnic respiratory failure on chronic hypercapnic respiratory failure and is is probably because of obesity sleep apnea -Acute hypoxic respiratory failure secondary to congestive heart failure chronic systolic function EF of around 40 to 45. -Cardiomyopathy -Patient also has mild pulmonary hypertension with severely dilated LV and severe tricuspid regurgitation. -Hypokalemia from diuresis -Altered mental status secondary to acute metabolic encephalopathy and elevated CO2 levels. -Respiratory acidosis secondary to CO2 retention -Right arm phlebitis from IV site. Blood cultures repeated started on oral keflex. 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 -History of CVA in the past -Seizure disorder for which patient is on Keppra has been increased. -Hyperlipidemia -Obesity and sleep apnea -Chronic medical debility -Foot drop -Peripheral neuropathy for which patient is on gabapentin which will be resumed Discharge Disposition Patient is stable for return to [facility]. Patient to continue on oxygen via nasal cannula. Patient to continue on BiPAP at HS. Keppra has been increased to 1500 mg BID. Patient to follow up with neurologist on discharge. Diuretics have been adjusted and recommending close follow up with cardiology in the office in 1 to 2 weeks. Repeat blood work in 2 to 3 days. Hospital Course Patient is a pleasant 73-year-old female was sent in because of decreased level of consciousness with concerns of aspiration. Patient was also short of breath patient is found to be in hypercapnic respiratory failure with pH of 7.3 and pCO2 of 90 and pO2 of around 70. Patient does have history of obstructive sleep apnea morbidly obese female uses CPAP machine at nighttime. Patient does have multiple other medical problems including congestive heart failure with a EF of around 40 to 45% chest x-ray showing some pulmonary edema and BNP of 1700. Patient does not have any fever chills presently on BiPAP at this time. Patient is on Bumex 2 mg twice a day as an outpatient. Patient does have mild pedal edema on exam. Patient does use oxygen at baseline. Patient is mostly bedbound bilateral does have bilateral foot drop has history of cerebrovascular accident as well in the past. Was admitted to the hospital with a consult placed to neurology, cardiology, pulmonary services. Patient was diuresed with IV Lasix she was also given an IV heparin bridge as her Coumadin was subtherapeutic on admission which has since improved and INR is now 2.7. She is off the heparin drip. Patient daughter had concerns with seizure-like activity EEG was completed which reveals an abnormal routine EEG the background slowing is suggestive of moderate encephalopathy they are discharges over the left frontal as well as left temporal which can increase risk for seizure no seizures noted during the study. Patient has been maintained on Keppra 1000 mg twice a day which was increased up to 1500 mg twice a day by neurology, we recommended the patient remain off of tramadol at this time as this can decrease the seizure threshold. EXTR adjusted by cardiology patient will discharge on oral Bumex 1 mg twice a day as well as Zaroxolyn 5 mg daily. Patient was also started on a low-dose lisinopril secondary to her cardiomyopathy. Patient did have an IV site in her right wrist with evidence of redness surrounding the site we did start her on oral Keflex for this to continue for a total of 5 days on discharge. Blood Cultures have been negative. Currently afebrile heart rate of 83, blood pressure 119/56 she is 97% on 2 L of oxygen via nasal cannula. She is awake alert oriented at this time. She is bedbound at baseline. Patient will return to [facility]. Please see medication reconciliation for a list of current medications. Thank you for allowing us to participate in the care of this patient. The impression and plan of care has been dictated by Nurse Naomi Pr actitioner as directed. Dr. Dianna MD I have performed a history and physical examination and medical decision making of this patient, discussed the same with the dictator, and agree with the dicta tors assessment and plan as written, documented as a scribe. Based on total visit time, I have performed more than 50% of this visit. Patient Condition at Discharge: Fair Plan - Discharge Summary Discharge Rx Participant: No New Discharge Prescriptions: New Aspirin 81 mg PO DAILY tab Bumetanide [BUMEX] 1 mg PO BID@0900,1600 tab Folic Acid 1 mg PO DAILY tab Cephalexin [Keflex] 500 mg PO QID 5 Days #20 cap metOLazone [Zaroxolyn] 5 mg PO DAILY tab levETIRAcetam [Keppra] 1,500 mg PO BID tab lisinopriL [Zestril] 2.5 mg PO DAILY tab Continue Atorvastatin Calcium [Lipitor] 40 mg PO HS Sennosides [Senna] 8.6 mg PO BID Cetirizine HCl [Zyrtec] 10 mg PO DAILY Miconazole Nitrate [Lotrimin AF Powder] 1 applic TOPICAL BID Naloxone HCl [Narcan] 4 mg NASAL DIRECTED PRN PRN Reason: Opioid Overdose Warfarin Sodium 2 mg PO HS Docusate Sodium [Dok] 100 mg PO DAILY Morphine Sulfate ER [Ms Contin] 30 mg PO HS #3 tab Midodrine [ProAmatine] 5 mg PO TID #0 Metoprolol Tartrate [Lopressor] 12.5 mg PO BID Sertraline [Zoloft] 50 mg PO DAILY Potassium Chloride ER [K-Dur 20] 20 meq PO BID #0 Betamethasone Dipropionate [Betamethasone Dipropionate 0.05% Cream] 1 applic TOPICAL Q24H PRN PRN Reason: plaque psoriasis Docusate [Colace] 100 mg PO BID PRN PRN Reason: Constipation polyethylene glycoL 3350 [Miralax] 17 gm PO DAILY Pramipexole [Mirapex] 0.5 mg PO HS Spironolactone [Aldactone] 50 mg PO DAILY Naloxone HCl 0.4 mg IM DIRECTED PRN PRN Reason: Opioid Overdose Gabapentin 600 mg PO BID Discontinued levETIRAcetam 1,000 mg PO BID traMADol HCl [Ultram] 50 mg PO BID PRN PRN Reason: Moderate To Severe Pain (4-10) Baclofen 5 mg PO BID Bumetanide [BUMEX] 2 mg PO BID Discharge Medication List Atorvastatin Calcium [Lipitor] 40 mg PO HS 09/06/15 [History] Sennosides [Senna] 8.6 mg PO BID 10/01/17 [History] Metoprolol Tartrate [Lopressor] 12.5 mg PO BID 03/03/21 [History] Sertraline [Zoloft] 50 mg PO DAILY 03/03/21 [History] Potassium Chloride ER [K-Dur 20] 20 meq PO BID #0 03/05/21 [Rx] Betamethasone Dipropionate [Betamethasone Dipropionate 0.05% Cream] 1 applic TOPICAL Q24H PRN 12/13/23 [History] Cetirizine HCl [Zyrtec] 10 mg PO DAILY 12/13/23 [History] Docusate Sodium [Dok] 100 mg PO DAILY 12/13/23 [History] Docusate [Colace] 100 mg PO BID PRN 12/13/23 [History] Gabapentin 600 mg PO BID 12/13/23 [History] Miconazole Nitrate [Lotrimin AF Powder] 1 applic TOPICAL BID 12/13/23 [History] Naloxone HCl 0.4 mg IM DIRECTED PRN 12/13/23 [History] Naloxone HCl [Narcan] 4 mg NASAL DIRECTED PRN 12/13/23 [History] Pramipexole [Mirapex] 0.5 mg PO HS 12/13/23 [History] Spironolactone [Aldactone] 50 mg PO DAILY 12/13/23 [History] Warfarin Sodium 2 mg PO HS 12/13/23 [History] polyethylene glycoL 3350 [Miralax] 17 gm PO DAILY 12/13/23 [History] Aspirin 81 mg PO DAILY tab 12/18/23 [Rx] Bumetanide [BUMEX] 1 mg PO BID@0900,1600 tab 12/18/23 [Rx] Cephalexin [Keflex] 500 mg PO QID 5 Days #20 cap 12/18/23 [Rx] Folic Acid 1 mg PO DAILY tab 12/18/23 [Rx] Midodrine [ProAmatine] 5 mg PO TID #0 12/18/23 [Rx] Morphine Sulfate ER [Ms Contin] 30 mg PO HS #3 tab 12/18/23 [Rx] levETIRAcetam [Keppra] 1,500 mg PO BID tab 12/18/23 [Rx] lisinopriL [Zestril] 2.5 mg PO DAILY tab 12/18/23 [Rx] metOLazone [Zaroxolyn] 5 mg PO DAILY tab 12/18/23 [Rx] Follow up Appointment(s)/Referral(s): Jerri Hodgson DO [Primary Care Provider] - 1-2 days Cesar Escamilla DO [STAFF PHYSICIAN] - 1 Week Pranav Thompson MD [STAFF PHYSICIAN] - 1 Week Zuleyka Cox MD [Medical Doctor] - 1 Week Ambulatory/Diagnostic Orders: Basic Metabolic Panel [LAB.AMB] Time Frame: 3 Days, Location: None Selected Complete Blood Count w/diff [LAB.AMB] Location: None Selected Activity/Diet/Wound Care/Special Instructions: Bipap / @40% FI02 Discharge Disposition: TRANSFER TO SNF/ECF
--- NOTE | 2023-12-18 12:55 | P.PN ---
Subjective Progress Note Date: 12/18/23 73-year-old female originally seen by Dr. Carroll in the emergency room, and then followed by Dr. Cárdenas afterwards. This is a 73-year-old female who presented with shortness of breath and difficulty breathing. The patient was seen in the emergency department, on December 12. The patient was very confused when she first came in, and was a very poor historian. The patient was initially placed on BiPAP, with settings of 16/6, and 40%. She remains on BiPAP. Patient has a history of atrial fibrillation, coronary disease, CVA, hyperlipidemia, pneumonia, and seizure disorder. The patient apparently also has a previous history of either mitral valve replacement or repair. She is a lifelong non-smoker. Laboratory data includes a white count 6.7, hemoglobin 10.5, hematocrit 34.5, and a platelet count of 103,000. PT was 17.3 with an INR of 1.7. Venous blood gas showed a pCO2 of 98, and a pH of 7.3. Sodium 136, potassium 4.3, chlorides 91, CO2 41, BUN and creatinine were 16 and 0.66. Glucose 159. Calcium 8.2. Troponin was 0.012. N-terminal proBNP was 1760. Chest x-ray showed sternal wires consistent with previous open heart surgery. Cardiac silhouette is enlarged. Costophrenic angles are blunted. This x-ray in my opinion is consistent with pulmonary vascular congestion. EKG shows evidence of atrial fibrillation. Progress note dated December 14, 2023. 73-year-old female seen in room 355. She was initially evaluated in the emergency department. She came in with confusion, and she was a very poor historian. The patient was placed on BiPAP, initially with settings of 16/6, 40%. She has a history of atrial fibrillation, coronary disease, CVA, hyperlipidemia, pneumonia, and seizure disorder. Currently, the patient is on 3 L of oxygen. The BiPAP is in the room. Is not clear to me whether or not she used it last night. She does continue on IV heparin. Current labs include a white count 5.6, hemoglobin 9.6, hematocrit 30.7, and a platelet count of 146,000. PT was 22.7. INR 2.3. PTT was 67.4. Sodium 136, potassium 3.7, chloride 88, CO2 46, BUN 18, creatinine 0.66. Troponins were 0.015, and 0.015. Progress note dated December 15, 2023. 73-year-old female seen again in room 355. The patient is resting comfortably in bed. She denies any complaints. Currently, she is on 2 L of oxygen. She is getting IV heparin. She did use BiPAP last night, with settings of 16/6, and 40%. The patient continues in atrial fibrillation. Current labs include a PTT of 63.1. Sodium 136, potassium 3, chloride 89, CO2 42, BUN 18, creatinine 0.69. Calcium is 8.2. Progress note dated December 16, 2023. 73-year-old female again seen in room 355. The patient is not receiving any IV fluids. The patient is on O2 at 2 L. She did use her BiPAP device last night, with settings of 16/6, and 40%. The patient feels like she is improved. She denies any worsening or more severe shortness of breath, cough, wheezing, chest tightness, or phlegm production. She also denies any chest pain or pressure. Current labs include a PT of 23.5 and an INR of 2.4. Sodium 137, potassium 3.3, chlorides 91, CO2 42, BUN 14, creatinine 0.73. Urine is negative. 12/17/2023, patient is being seen for a follow-up. This patient is awake and alert. She is currently off BiPAP. Overnight, she was on a BiPAP pressure of 16 over 6 cm of water and the patient is currently on 3 L of oxygen by nasal cannula. She is a intermediate resident and she is quite debilitated from the previous CVA and she does have left-sided hemiplegia and chronic lower extremity edema. She was taken off the IV Lasix and the patient is currently on Bumex 1 mg p.o. twice a day. The patient also had a echocardiogram that showed a ejection fraction of 40%. Severe RV dilatation with mild pulmonary hype rtension. The patient also has a mechanical valve/mitral and the patient remains on long-term anticoagulant with warfarin. INR is therapeutic at this point in time. Along with Bumex, the patient is on Zaroxolyn 5 mg p.o. on a daily basis. Rest of the medications remain unchanged. No significant shortness of breath. Repeat CAT scan of the brain done on 12/16/2023 showed stable lacunar infarcts involving the basal ganglia. No acute intracranial abnormalities noted. Other comorbidities include chronic atrial fibrillation, coronary artery disease, hyperlipidemia and seizure disorders. 12/18/2023, the patient is being seen for a follow-up. This morning, the patient is on 2 L of oxygen by nasal cannula. Overnight, the patient was on a BiPAP pressure of 16 over 4 cm of water with FiO2 of 40%. This fluid balance is -3 L over the past 24 hours and the patient continues to have edema lower extremities bilaterally. Remains on a combination of Bumex 1 mg p.o. twice daily, Aldactone 50 mg p.o. daily Zaroxolyn 5 mg p.o. daily. She was given Seroquel overnight and the patient feels to be slightly more sleepy than usual. Otherwise, no other significant events overnight. White cell count of 5.9 with a hemoglobin of 10.2 and a platelet count of 131. BUN is 18 with a creatinine 0.7 and sodium levels at 137 and the potassium level is 3.7. Objective - Vital Signs Vital signs: Vital Signs Temp 97.9 F 12/18/23 08:36 Pulse 78 12/18/23 08:36 Resp 20 12/18/23 08:36 BP 129/74 12/18/23 08:36 Pulse Ox 100 12/18/23 08:36 FiO2 40 12/18/23 04:00 Intake & Output 12/17/23 12/18/23 12/18/23 18:59 06:59 18:59 Intake Total 380 10 Output Total 1600 2100 Balance -1219 Weight 152.5 kg Intake: IV 20 10 0.9 10 Invasive Line 3 10 Invasive Line 4 10 Oral 360 Output: Urine 1600 2100 Other: Voiding Method External Catheter External Catheter # Bowel Movements 0 - Exam No acute distress, much more awake and alert. Currently on 2 L of oxygen. The patient is morbidly obese with a BMI of 54.1 HEENT examination is grossly unremarkable. Neck supple. Full range of motion. No adenopathy thyromegaly or neck vein distention. Cardiovascular examination reveals an irregular rhythm and rate. S1-S2 normal. No S3 or S4. No discernible murmur noted. Heart sounds are distant. Lungs reveal diminished bilateral breath sounds. Scattered rhonchi. Scattered crackles are also noted. No wheezes. Breath sounds are equal. Abdomen obese, but soft. No masses or tenderness. Extremities are intact. No cyanosis or clubbing. Lower extremity edema noted. The patient has chronic contractures in the lower extremity with chronic lower extremity edema Skin is without rash or lesion. Neurologic examination reveals left-sided hemiplegia related to her previous CVA. - Labs CBC & Chem 7: 12/18/23 10:38 12/18/23 10:38 Labs: Abnormal Lab Results - Last 24 Hours (Table) 12/18/23 Range/Units 06:24 PT 26.4 H (10.0-12.5) sec INR 2.7 H (<1.2) Assessment and Plan Plan: Acute on chronic hypoxemic and hypercapnic respiratory failure, likely multifactorial, in part related to congestive heart failure, as well as possible sleep apnea syndrome/Pickwickian syndrome. The patient is currently off BiPAP and the patient is currently on oxygen at 3 L/min nasal cannula. Awake and alert. No signs of any CO2 narcosis. Systolic congestive heart failure, with an ejection fraction of 40 to 45%. Hypercarbic encephalopathy, treated with diuretics, and BiPAP therapy and the patient's mental status is adequate for now. History of atrial fibrillation with a relatively controlled ventricular response rate, rate is under better control and the patient is on anticoagulation with warfarin History of mitral valve replacement. The patient has a mechanical valve and the patient has been maintained on long-term anticoagulation with warfarin and repeat INR is therapeutic History of hyperlipidemia. History of CVA. Repeat CAT scan of the brain on 12/16/2023 shows stable findings and the patient has chronic left sided hemiplegia History of tricuspid regurgitation. History of seizure disorder. Chronic lower extremity edema Plan: Continue BiPAP overnight, currently on 2 L of oxygen by nasal cannula Continue anticoagulation with warfarin with a therapeutic PT/INR Continue Bumex and Zaroxolyn and keep the patient negative fluid balance and a net fluid balance is -3 L over the past 24 hours. Overall respiratory status is stable and the patient has no signs of any CO2 narcosis Patient is a intermediate resident and the patient is quite debilitated Will continue to follow, likely discharge back to the intermediate today.
[2023-12-18] MEDS: LACOSAMIDE 50 MG TABLET PO SCH (12:58)
--- NOTE | 2023-12-18 14:30 | P.PN ---
Subjective Progress Note Date: 12/18/23 The patient is a pleasant 73-year-old female patient with extensive cardiovascular history consistent of valvular heart disease status post mitral valve replacement using mechanical valve as well as permanent atrial fibrillation and history of stroke as well as cardiomyopathy with a EF around 40% as well as morbid obesity and hypertension and dyslipidemia and pulmonary hypertension was admitted to the hospital with a change in mental status and also she was admitted with acute hypoxic respiratory failure with a component of heart failure. The echo revealed impaired LV function with EF around 40% December 15, 2023 Patient was seen and evaluated this morning. She still hypoxic. She still hypervolemic with bilateral lower extremities edema. The echo revealed impaired LV function with EF around 40% with severe pulmonary hypertension antiradial right ventricle. The mitral valve appears to be functioning normally which is a mechanical valve which she continues to be on Coumadin with subtherapeutic INR and she continues to be on heparin for bridging. Pharmacy to manage INR. Examination is remarkable for severe bilateral lower extremity edema and diminished breathing sounds bilaterally and irregular rhythm with a systolic murmur at the left upper sternal border December 16, 2023 The patient was seen and evaluated this morning. Overall from the cardiovascular standpoint of view, she seems better but she still have bilateral lower extremities edema which we do not know was her baseline which she continues to be on Lasix IV and GFR continues to be normal but potassium is low which is going to be replaced. From the cardiovascular standpoint of view, we will continue the current medical regimen and continue IV Lasix for additional 12 to 24 hours and consider switching the patient to oral diuretics by tomorrow. INR yesterday was therapeutic and she is on Coumadin has been managed by the pharmacy. The physical examination is remarkable for mechanical first heart sounds with diminished breathing sounds bilaterally and bilateral lower extremities edema worse on the left than the right 12/16 Patient has been maintained on IV Lasix 40 mg every 12 hours. She has a negative fluid balance. Weights do not appear accurate. Repeat blood work reveals potassium 3.2, creatinine 0.75. INR 2.4. Ammonia level yesterday was 37. Potassium has been replaced. CAT scan of the brain showed no acute intracranial process. Stable lacunar infarcts bilaterally basal ganglion. Echocardiogram performed 12/13/2023 reveals EF 40%. Severely dilated right atrium left atrium and left ventricle. Mechanical mitral valve study quality is suboptimal. Severe tricuspid regurgitation. The physical examination is remarkable for mechanical first heart sounds with diminished breathing sounds bilaterally and bilateral lower extremities edema worse on the left than the right December 18, 2023 Patient is seen and examined at bedside this a.m. BP 190s over 56, heart rate 83 bpm, creatinine 0.7, BUN 18, bicarb 41. Assessment Acute hypoxic respiratory failure likely to be multifactorial Acute heart failure exacerbation secondary to HFrEF Permanent atrial fibrillation with controlled heart rate Status post mitral valve placement using mechanical valve History of stroke Multiple comorbid conditions including morbid obesity as well as hypertension and dyslipidemia Cardiomyopathy with EF around 40% Severe pulmonary hypertension Plan Continue the current medical regimen: Aspirin 81 mg daily, atorvastatin 40 mg at bedtime Continue patient on lisinopril 2.5 mg daily, Lopressor 25 mg twice daily, spironolactone 50 mg daily Continue Bumex 1 mg twice daily Add metolazone 5 mg daily for next 5 days only. Continue anticoagulation with Coumadin, pharmacy dosing Recommend outpatient follow-up with cardiology next 1 week. Objective - Vital Signs Vital signs: Vital Signs Temp 97.9 F 12/18/23 08:36 Pulse 83 12/18/23 13:01 Resp 18 12/18/23 11:20 BP 119/56 12/18/23 11:20 Pulse Ox 97 12/18/23 11:20 FiO2 40 12/18/23 04:00 Intake & Output 12/17/23 12/18/23 12/18/23 18:59 06:59 18:59 Intake Total 380 10 Output Total 1600 2100 700 Balance -1220 -2090 -700 Weight 152.5 kg 152.5 kg Intake: IV 20 10 0.9 10 Invasive Line 3 10 Invasive Line 4 10 Oral 360 Output: Urine 1600 2100 700 Other: Voiding Method External Catheter External Catheter # Bowel Movements 0 - Labs CBC & Chem 7: 12/18/23 10:38 12/18/23 10:38 Labs: Abnormal Lab Results - Last 24 Hours (Table) 12/18/23 12/18/23 12/18/23 Range/Units 06:24 10:38 10:38 RBC 3.24 L (3.80-5.40) m/uL Hgb 10.2 L (11.4-16.0) gm/dL Hct 32.8 L (34.0-46.0) % MCV 101.1 H (80.0-100.0) fL Plt Count 131 L (150-450) k/uL Lymphocytes # 0.8 L (1.0-4.8) k/uL PT 26.4 H (10.0-12.5) sec INR 2.7 H (<1.2) Chloride 93 L (98-107) mmol/L Carbon Dioxide 41 H* (22-30) mmol/L BUN 18 H (7-17) mg/dL Glucose 112 H (74-99) mg/dL Microbiology - Last 24 Hours (Table) 12/13/23 03:35 Blood Culture - Final Blood
--- NOTE | 2023-12-18 14:38 | P.PN ---
Subjective Progress Note Date: 12/18/23 I am following-up with patient and per primary team N.P. she continues to fluctuate mentation moran. Then later was notified by primary team N.P. she was more responsive today compared to yesterday. Yesterday Keppra was increased from 1gm to 1.5gm bid. Objective - Vital Signs Vital signs: Vital Signs Temp 97.9 F 12/18/23 08:36 Pulse 83 12/18/23 13:01 Resp 18 12/18/23 11:20 BP 119/56 12/18/23 11:20 Pulse Ox 97 12/18/23 11:20 FiO2 40 12/18/23 04:00 Intake & Output 12/17/23 12/18/23 12/18/23 18:59 06:59 18:59 Intake Total 380 10 Output Total 1600 2100 700 Balance -1220 -2089 -700 Weight 152.5 kg 152.5 kg Intake: IV 20 10 0.9 10 Invasive Line 3 10 Invasive Line 4 10 Oral 360 Output: Urine 1600 2100 700 Other: Voiding Method External Catheter External Catheter # Bowel Movements 0 - Exam General: Lying in bed and is not in acute distress. Neuro: Limited. She was sleeping but was awakeable to voice. She was drowsy. Is oriented to self, place and time. Is following few simple commands. No facial weakness. No dysarthria. Motor: Patient is listing the right side above gravity left side unable because of old stroke. - Labs CBC & Chem 7: 12/18/23 10:38 12/18/23 10:38 Labs: Abnormal Lab Results - Last 24 Hours (Table) 12/18/23 12/18/23 12/18/23 Range/Units 06:24 10:38 10:38 RBC 3.24 L (3.80-5.40) m/uL Hgb 10.2 L (11.4-16.0) gm/dL Hct 32.8 L (34.0-46.0) % MCV 101.1 H (80.0-100.0) fL Plt Count 131 L (150-450) k/uL Lymphocytes # 0.8 L (1.0-4.8) k/uL PT 26.4 H (10.0-12.5) sec INR 2.7 H (<1.2) Chloride 93 L (98-107) mmol/L Carbon Dioxide 41 H* (22-30) mmol/L BUN 18 H (7-17) mg/dL Glucose 112 H (74-99) mg/dL Microbiology - Last 24 Hours (Table) 12/13/23 03:35 Blood Culture - Final Blood Assessment and Plan Assessment: * Altered mental status, likely due to metabolic encephalopathy and concern for seizure. On EEG has discharges left frontal and temporal region but no seizure. 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 * Macrocytic anemia and has Folate deficiency. * Atrial fibrillation on Coumadin * CHF * History of mitral valve replacement on Coumadin * Morbid obesity * Bedbound status Plan: * EEG: Is abnormal. The background slowing is suggestive of moderate enc ephalopathy. There are discharges over the left frontal as well temporal which can increase risk for seizure. No seizure noted during this study. * I went on her Keppra 1000mg bid (home dose) to 1500mg bid on 12/17/2023. I also started the patient on Vimpat 50mg bid. I went up to 1500mg bid. Keppra level pending. * CT head was performed, which revealed no acute intracranial process. Stable lacunar infarcts bilateral basal ganglion. * Continue Coumadin for atrial fibrillation. INR therapeutic 2.4. * B12: 436, folate: 4.20 and I started the patient on folic acid 1mg daily * Pending MMA * Pulmonary medicine onboard for chronic hypoxemic and hypercapnic respiratory failure. Patient also has CHF. * Upon discharge, recommend the patient to follow-up with neurologist as outpatient within 2 weeks. The plan is discussed with the primary team N.P. If by tomorrow, she continues to improve then no further neurological work-up and is clear from neurological perspective. Time with Patient: Less than 30
[2023-12-19 04:06] LABS: Prothrombin Time 29.4 sec (10.0-12.5)
[2023-12-19 04:11] LABS: African American GFR (CKD) 65 (>60 ml/min/1.73 sqM); Blood Urea Nitrogen 21 mg/dL (7-17); Calcium 8.5 mg/dL (8.4-10.2); Chloride 90 mmol/L (98-107); Glucose 103 mg/dL (74-99); Non-African American GFR(CKD) 56 (>60 ml/min/1.73 sqM); Potassium 3.7 mmol/L (3.5-5.1); Sodium 135 mmol/L (137-145)
[2023-12-19 04:18] LABS: Anion Gap 4 mmol/L
[2023-12-19 04:25] LABS: Carbon Dioxide 41 mmol/L (22-30)
[2023-12-19] MEDS: SODIUM CHLORIDE 0.9% 1,000 ML IV ONE (08:00)
[2023-12-19 08:17] LABS: Glucose,Whole Blood 179 mg/dL (70-110)
[2023-12-19] MEDS: SODIUM CHLORIDE 0.9% 500 ML 500 ML IV ONE (09:00)
[2023-12-19 09:25] LABS: Basophils % (A) 0 %; Eosinophils # (A) 0.4 k/uL (0-0.7); Eosinophils % (A) 5 %; HCT 33.9 % (34.0-46.0); HGB 10.3 gm/dL (11.4-16.0); Hypochromasia Marked; Lymphocytes # (A) 0.7 k/uL (1.0-4.8); Lymphocytes % (A) 9 %; MCH 31.1 pg (25.0-35.0); MCHC 30.3 g/dL (31.0-37.0); MCV 102.7 fL (80.0-100.0); Macrocytosis Slight; Mean Platelet Volume 8.4; Monocytes # (A) 0.5 k/uL (0-1.0); Monocytes % (A) 6 %; Neutrophils % (A) 78 %; Platelet Count 168 k/uL (150-450); RDW 14.1 % (11.5-15.5); WBC 7.7 k/uL (3.8-10.6)
[2023-12-19 09:28] LABS: ABG Base Excess 13.5 mmol/L; ABG Oxygen Saturation 98.5 % (94-97); ABG PH 7.33 (7.35-7.45); ABG PO2 113 mmHg (83-108); ABG TCO2 45 mmol/L (19-24); Allen Test Performed? Yes
--- NOTE | 2023-12-19 09:29 | XR ---
EXAMINATION TYPE: XR chest 1V portable DATE OF EXAM: 12/19/2023 8:44 AM COMPARISON: 12/13/2023 CLINICAL INDICATION: Female, 73 years old with history of fever, TECHNIQUE: XR chest 1V portable view(s) obtained. FINDINGS: The heart size is large. The pulmonary vasculature is normal. Mild left lower lobe infiltrate may be present. IMPRESSION: 1. Suggestion of mild left lower lobe infiltrate. Clinical correlation recommended. 2. Cardiomegaly. [facility], , 12/19/2023 9:26 AM
[2023-12-19 09:39] LABS: Appearance,Urine Clear (Clear); Bilirubin,Urine Negative (Negative); Blood,Urine Negative (Negative); Color,Urine Colorless; Glucose,Urine (UA) Negative (Negative); Ketones,Urine Negative (Negative); Leukocyte Esterase,Urine Negative (Negative); Nitrite,Urine Negative (Negative); PH, Urine 6.5 (5.0-8.0); Protein,Urine Negative (Negative); Specific Gravity,Urine 1.009 (1.001-1.035)
[2023-12-19] MEDS: NOREPINEPHRINE 4 MG in SODIUM CHLORIDE 0.9% 250 ML IV SCH (10:30)
[2023-12-19 10:51] LABS: ABG HCO3 42 mmol/L (21-25); ABG PCO2 80 mmHg (35-45)
[2023-12-19] MEDS ORDERED: CEPHALEXIN 500 MG CAP PO SCH (11:30)
[2023-12-19 11:31] LABS: Glucose,Whole Blood 130 mg/dL (70-110)
--- NOTE | 2023-12-19 11:41 | P.PN ---
Subjective Progress Note Date: 12/19/23 Patient is a pleasant 73-year-old female was sent in because of decreased level of consciousness with concerns of aspiration. Patient was also short of breath patient is found to be in hypercapnic respiratory failure with pH of 7.3 and pCO2 of 90 and pO2 of around 70. Patient does have history of obstructive sleep apnea morbidly obese female uses CPAP machine at nighttime. Patient does have multiple other medical problems including congestive heart failure with a EF of around 40 to 45% chest x-ray showing some pulmonary edema and BNP of 1700. Patient does not have any fever chills presently on BiPAP at this time. Patient is on Bumex 2 mg twice a day as an outpatient. Patient does have mild pedal edema on exam. Patient does use oxygen at baseline. Patient is mostly bedbound bilateral does have bilateral foot drop has history of cerebrovascular accident as well in the past 12/14/2023 Patient is evaluated today in follow up on the medical floor. Patient has been continued on the bipap overnight. Currently down to 4L of oxygen, and reports not wearing any home oxygen. Patients CO2 is 46. Patient remains on IV lasix 40 mg Q12 hour. Patient has been started on IV heparin bridge as she has been subtherapeutic on warfarin. CO2 is 46 today. 12/15/2023 Patient is evaluated today in follow-up on the medical floor. She has been continued on BiPAP overnight currently on nasal cannula awake alert oriented. Remains on IV heparin, INR today is 2.5. Sodium levels 136 potassium 3.0 today. 12/16/2023 Patient is evaluated today in follow-up, nursing staff reports a another episode of possible seizure-like activity. Patient is not appear to be having any type of postictal state. Neurology was consulted. she is continued on Keppra 1000 mg twice a day and we will check a Keppra level. States that she has not had a seizure in quite a long time. She continues on IV Lasix 40 mg every 12 hours with strict intake and output monitoring. Today is 2.4, sodium 137, potassium 3.3, CO2 of 42, BUN of 14, creatinine of 0.73. Calcium of 8.1. 12/17/2023 Patient is evaluated today in follow up on the medical floor. She remains AO x 3 with moments of confusion and neurology was consulted with concern for possible seizure like activity. Patient has been transitioned to oral bumex BID. CO2 elevated at 41 today. Potassium 3.2. Ammonia level 37. Has reddened lump on the right wrist from old IV site with evidence of erythema up the right arm. 12/19/2023 Patient is evaluated in follow-up patient was moved to the intensive care unit earlier this morning secondary to decreased blood pressures in the 60s systolic. Patient was recently started on low-dose lisinopril 2.5 mg which will be stopped at this time. Patient only she continues on oral Bumex twice a day, metolazone as well as Aldactone. Held this morning. so Far patient has received 2 L of fluid bolus. Patient is requiring vasopressor support. The IV site on the right wrist is opened up with purulent drainage with surrounding cellulitis not improving with oral Keflex. Wound cultures are requested and patient will be transition to IV cefazolin with an ID consultation. Chest x-ray today shows mild left lower lobe infiltrate. Review of Systems Constitutional: Denied any fatigue denied any fever. Cardio vascular: denied any chest pain, palpitations Gastrointestinal: denied any nausea, vomiting, diarrhea Pulmonary: Denied any shortness of breath cough Neurologic denied any new focal deficits All inpatient medications were reviewed and appropriate changes in these medications as dictated in the interval history and assessment and plan. PHYSICAL EXAMINATION: GENERAL: Morbidly obese drowsy oriented x 3, patient is on nasal cannula. BiPAP HEENT: Pupils are round and equally reacting to light. EOMI. No scleral icterus. No conjunctival pallor. Normocephalic, atraumatic. No pharyngeal erythema. No t hyromegaly. CARDIOVASCULAR: S1 and S2 present. No murmurs, rubs, or gallops. PULMONARY: Good air entry with mild expiratory wheezing on exam ABDOMEN: Soft, nontender, nondistended, normoactive bowel sounds. No palpable organomegaly. MUSCULOSKELETAL: No joint swelling or deformity. EXTREMITIES: No cyanosis, clubbing, or my lower EXTR bilateral pedal edema NEUROLOGICAL: Gross neurological examination did not reveal any focal deficits. Has old left arm contractures and left foot drop. SKIN: No rashes. Right wrist open wound with purulent drainage and surrounding cellulitis Assessment and plan -Acute hypoxic and hypercapnic respiratory failure on chronic hypercapnic respiratory failure and is is probably because of obesity sleep apnea and mild bronchitis may have contributed to CO2 retention Batient is on BiPAP at HS -Acute hypoxic respiratory failure secondary to congestive heart failure chronic systolic function EF of around 40 to 45. Patient also has mild pulmonary hypertension with severely dilated LV and severe tricuspid regurgitation. Cardiology Adjusting medications have added lisinopril secondary to the new cardiomyopathy. Patient has been transitioned to oral bumex BID and cardiology following. -Hypovolemic shock currently on levophed and in the ICU. 2L fluid bolus given. -Hypokalemia from diuresis improved. -Altered mental status secondary to acute metabolic encephalopathy and elevated CO2 levels. Neurology was consulted for possible seizure-like activity patient is maintained on Keppra on an outpatient basis we will check a serum Keppra level. -Respiratory acidosis secondary to CO2 retention -Right arm phlebitis from IV site. Blood cultures repeated currently pending the wound has opened up today with purulent drainage which will be altered ID has been consulted and patient has been transition to IV cefazolin. 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 -History of CVA in the past -Seizure disorder for which patient is on Keppra which will be resumed -Hyperlipidemia -Obesity and sleep apnea -Chronic medical debility -Foot drop -Peripheral neuropathy for which patient is on gabapentin which will be resumed DVT prophylaxis: Warfarin GI prophylaxis Full Code Plan Patient has received 2L fluid bolus and started on levophed Will need to hold the bumex, aldactone and metolozone Hold lisinopril Monitor blood pressures Continue BiPAP Blood cultures pending, culture the right wrist and ID consultation CBC BMP in AM The impression and plan of care has been dictated by Lin Villalobos, Nurse Practitioner as directed. Dr. Dianna MD I have performed a history and physical examination and medical decision making of this patient, discussed the same with the dictator, and agree with the dictators assessment and plan as written, documented as a scribe. Based on total visit time, I have performed more than 50% of this visit. Objective - Vital Signs Vital signs: Vital Signs Temp 97.8 F 12/19/23 07:10 Pulse 84 12/19/23 09:10 Resp 29 H 12/19/23 09:10 BP 55/44 12/19/23 09:10 Pulse Ox 98 12/19/23 09:10 FiO2 40 12/19/23 08:47 Intake & Output 12/18/23 12/19/23 12/19/23 18:59 06:59 18:59 Intake Total 10 10 Output Total 1100 300 Balance -1100 -290 10 Weight 152.5 kg Intake: IV 10 10 Invasive Line 4 10 Invasive Line 5 10 Output: Urine 1100 300 Other: Voiding Method External Catheter External Catheter # Bowel Movements 0 0 - Labs CBC & Chem 7: 12/19/23 08:58 12/19/23 03:24 Labs: Abnormal Lab Results - Last 24 Hours (Table) 12/18/23 12/19/23 12/19/23 Range/Units 10:38 03:24 03:24 RBC (3.80-5.40) m/uL Hgb (11.4-16.0) gm/dL Hct (34.0-46.0) % MCV (80.0-100.0) fL MCHC (31.0-37.0) g/dL Lymphocytes # (1.0-4.8) k/uL PT 29.4 H (10.0-12.5) sec INR 3.0 H (<1.2) ABG pH (7.35-7.45) ABG pCO2 (35-45) mmHg ABG pO2 (83-108) mmHg ABG HCO3 (21-25) mmol/L ABG Total CO2 (19-24) mmol/L ABG O2 Saturation (94-97) % Hemoglobin (11.4-16.0) gm/dL Sodium 135 L (137-145) mmol/L Chloride 93 L 90 L (98-107) mmol/L Carbon Dioxide 41 H* 41 H* (22-30) mmol/L BUN 18 H 21 H (7-17) mg/dL Glucose 112 H 103 H (74-99) mg/dL POC Glucose (mg/dL) (70-110) mg/dL 12/19/23 12/19/23 12/19/23 Range/Units 08:16 08:58 09:27 RBC 3.30 L (3.80-5.40) m/uL Hgb 10.3 L (11.4-16.0) gm/dL Hct 33.9 L (34.0-46.0) % MCV 102.7 H (80.0-100.0) fL MCHC 30.3 L (31.0-37.0) g/dL Lymphocytes # 0.7 L (1.0-4.8) k/uL PT (10.0-12.5) sec INR (<1.2) ABG pH 7.33 L (7.35-7.45) ABG pCO2 80 H* (35-45) mmHg ABG pO2 113 H (83-108) mmHg ABG HCO3 42 H* (21-25) mmol/L ABG Total CO2 45 H (19-24) mmol/L ABG O2 Saturation 98.5 H (94-97) % Hemoglobin 9.9 L (11.4-16.0) gm/dL Sodium (137-145) mmol/L Chloride (98-107) mmol/L Carbon Dioxide (22-30) mmol/L BUN (7-17) mg/dL Glucose (74-99) mg/dL POC Glucose (mg/dL) 179 H (70-110) mg/dL Microbiology - Last 24 Hours (Table) 12/17/23 13:07 Blood Culture - Preliminary Blood 12/13/23 03:35 Blood Culture - Final Blood Assessment and Plan Time with Patient: Less than 30
--- NOTE | 2023-12-19 12:04 | P.PN ---
Subjective Progress Note Date: 12/19/23 73-year-old female originally seen by Dr. Carroll in the emergency room, and then followed by Dr. Cárdenas afterwards. This is a 73-year-old female who presented with shortness of breath and difficulty breathing. The patient was seen in the emergency department, on December 12. The patient was very confused when she first came in, and was a very poor historian. The patient was initially placed on BiPAP, with settings of 16/6, and 40%. She remains on BiPAP. Patient has a history of atrial fibrillation, coronary disease, CVA, hyperlipidemia, pneumonia, and seizure disorder. The patient apparently also has a previous history of either mitral valve replacement or repair. She is a lifelong non-smoker. Laboratory data includes a white count 6.7, hemoglobin 10.5, hematocrit 34.5, and a platelet count of 103,000. PT was 17.3 with an INR of 1.7. Venous blood gas showed a pCO2 of 98, and a pH of 7.3. Sodium 136, potassium 4.3, chlorides 91, CO2 41, BUN and creatinine were 16 and 0.66. Glucose 159. Calcium 8.2. Troponin was 0.012. N-terminal proBNP was 1760. Chest x-ray showed sternal wires consistent with previous open heart surgery. Cardiac silhouette is enlarged. Costophrenic angles are blunted. This x-ray in my opinion is consistent with pulmonary vascular congestion. EKG shows evidence of atrial fibrillation. Progress note dated December 14, 2023. 73-year-old female seen in room 355. She was initially evaluated in the emergency department. She came in with confusion, and she was a very poor historian. The patient was placed on BiPAP, initially with settings of 16/6, 40%. She has a history of atrial fibrillation, coronary disease, CVA, hyperlipidemia, pneumonia, and seizure disorder. Currently, the patient is on 3 L of oxygen. The BiPAP is in the room. Is not clear to me whether or not she used it last night. She does continue on IV heparin. Current labs include a white count 5.6, hemoglobin 9.6, hematocrit 30.7, and a platelet count of 146,000. PT was 22.7. INR 2.3. PTT was 67.4. Sodium 136, potassium 3.7, chloride 88, CO2 46, BUN 18, creatinine 0.66. Troponins were 0.015, and 0.015. Progress note dated December 15, 2023. 73-year-old female seen again in room 355. The patient is resting comfortably in bed. She denies any complaints. Currently, she is on 2 L of oxygen. She is getting IV heparin. She did use BiPAP last night, with settings of 16/6, and 40%. The patient continues in atrial fibrillation. Current labs include a PTT of 63.1. Sodium 136, potassium 3, chloride 89, CO2 42, BUN 18, creatinine 0.69. Calcium is 8.2. Progress note dated December 16, 2023. 73-year-old female again seen in room 355. The patient is not receiving any IV fluids. The patient is on O2 at 2 L. She did use her BiPAP device last night, with settings of 16/6, and 40%. The patient feels like she is improved. She denies any worsening or more severe shortness of breath, cough, wheezing, chest tightness, or phlegm production. She also denies any chest pain or pressure. Current labs include a PT of 23.5 and an INR of 2.4. Sodium 137, potassium 3.3, chlorides 91, CO2 42, BUN 14, creatinine 0.73. Urine is negative. 12/17/2023, patient is being seen for a follow-up. This patient is awake and alert. She is currently off BiPAP. Overnight, she was on a BiPAP pressure of 16 over 6 cm of water and the patient is currently on 3 L of oxygen by nasal cannula. She is a residential resident and she is quite debilitated from the previous CVA and she does have left-sided hemiplegia and chronic lower extremity edema. She was taken off the IV Lasix and the patient is currently on Bumex 1 mg p.o. twice a day. The patient also had a echocardiogram that showed a ejection fraction of 40%. Severe RV dilatation with mild pulmonary hype rtension. The patient also has a mechanical valve/mitral and the patient remains on long-term anticoagulant with warfarin. INR is therapeutic at this point in time. Along with Bumex, the patient is on Zaroxolyn 5 mg p.o. on a daily basis. Rest of the medications remain unchanged. No significant shortness of breath. Repeat CAT scan of the brain done on 12/16/2023 showed stable lacunar infarcts involving the basal ganglia. No acute intracranial abnormalities noted. Other comorbidities include chronic atrial fibrillation, coronary artery disease, hyperlipidemia and seizure disorders. 12/18/2023, the patient is being seen for a follow-up. This morning, the patient is on 2 L of oxygen by nasal cannula. Overnight, the patient was on a BiPAP pressure of 16 over 4 cm of water with FiO2 of 40%. This fluid balance is -3 L over the past 24 hours and the patient continues to have edema lower extremities bilaterally. Remains on a combination of Bumex 1 mg p.o. twice daily, Aldactone 50 mg p.o. daily Zaroxolyn 5 mg p.o. daily. She was given Seroquel overnight and the patient feels to be slightly more sleepy than usual. Otherwise, no other significant events overnight. White cell count of 5.9 with a hemoglobin of 10.2 and a platelet count of 131. BUN is 18 with a creatinine 0.7 and sodium levels at 137 and the potassium level is 3.7. 12/19/2023, the patient got transferred to the intensive care and that the patient became lethargic and hypotensive. It was noted that the systolic blood pressure was running as low as 60 on the medical floor. Based on that, the patient got transferred to the intensive care unit. Diuretics were placed on hold and the patient was given a liter of bolus of IV fluids. Most recent blood pressure currently is 90/76. Urine output is still adequate. The patient was also placed on a BiPAP. This morning, she is on a BiPAP of 16 over 6 cm of water with an FiO2 of 50%. Blood gas was done in the ICU that showed a pH of 7.33 with a pCO2 of 80 and pO2 of 113. This was done while the patient was on a BiPAP. The white cell count is 7.7, it was 10.3 and a platelet count of 168. UA is negative. The rest of the electrolytes show a serum bicarb of 41, sodium levels of 135, potassium is at 3.7. BUN is at 21 with a creatinine of 1.01. Arousable, communicating. Denies having any chest pain. She has a area of skin ulcer that is developed at the level of her wrist with some minimal purulent drainage and erythema around it and the patient is currently on IV cefazolin. Objective - Vital Signs Vital signs: Vital Signs Temp 97.8 F 12/19/23 07:10 Pulse 84 12/19/23 09:10 Resp 29 H 12/19/23 09:10 BP 55/44 12/19/23 09:10 Pulse Ox 98 12/19/23 09:10 FiO2 40 12/19/23 08:47 Intake & Output 12/18/23 12/19/23 12/19/23 18:59 06:59 18:59 Intake Total 10 10 Output Total 1100 300 Balance -1100 -290 10 Weight 152.5 kg Intake: IV 10 10 Invasive Line 4 10 Invasive Line 5 10 Output: Urine 1100 300 Other: Voiding Method External Catheter External Catheter # Bowel Movements 0 0 - Exam No acute distress, much more awake and alert. Currently on BiPAP at a pressure of 16 over 6 cm of water with FiO2 of 40%. The patient is morbidly obese with a BMI of 54.1 HEENT examination is grossly unremarkable. Neck supple. Full range of motion. No adenopathy thyromegaly or neck vein distention. Cardiovascular examination reveals an irregular rhythm and rate. S1-S2 normal. No S3 or S4. No discernible murmur noted. Heart sounds are distant. Lungs reveal diminished bilateral breath sounds. Scattered rhonchi. Scattered crackles are also noted. No wheezes. Breath sounds are equal. Abdomen obese, but soft. No masses or tenderness. Extremities are intact. No cyanosis or clubbing. Lower extremity edema noted. The patient has chronic contractures in the lower extremity with chronic lower extremity edema. There is also a wound with purulent base and some surrounding erythema on the right side. Skin is without rash or lesion. Neurologic examination reveals left-sided hemiplegia related to her previous CVA. - Labs CBC & Chem 7: 12/19/23 08:58 12/19/23 03:24 Labs: Abnormal Lab Results - Last 24 Hours (Table) 12/18/23 12/18/23 12/19/23 Range/Units 10:38 10:38 03:24 RBC 3.24 L (3.80-5.40) m/uL Hgb 10.2 L (11.4-16.0) gm/dL Hct 32.8 L (34.0-46.0) % MCV 101.1 H (80.0-100.0) fL Plt Count 131 L (150-450) k/uL Lymphocytes # 0.8 L (1.0-4.8) k/uL PT 29.4 H (10.0-12.5) sec INR 3.0 H (<1.2) Sodium (137-145) mmol/L Chloride 93 L (98-107) mmol/L Carbon Dioxide 41 H* (22-30) mmol/L BUN 18 H (7-17) mg/dL Glucose 112 H (74-99) mg/dL POC Glucose (mg/dL) (70-110) mg/dL 12/19/23 12/19/23 Range/Units 03:24 08:16 RBC (3.80-5.40) m/uL Hgb (11.4-16.0) gm/dL Hct (34.0-46.0) % MCV (80.0-100.0) fL Plt Count (150-450) k/uL Lymphocytes # (1.0-4.8) k/uL PT (10.0-12.5) sec INR (<1.2) Sodium 135 L (137-145) mmol/L Chloride 90 L (98-107) mmol/L Carbon Dioxide 41 H* (22-30) mmol/L BUN 21 H (7-17) mg/dL Glucose 103 H (74-99) mg/dL POC Glucose (mg/dL) 179 H (70-110) mg/dL Microbiology - Last 24 Hours (Table) 12/17/23 13:07 Blood Culture - Preliminary Blood 12/13/23 03:35 Blood Culture - Final Blood Assessment and Plan Plan: Acute on chronic hypoxemic and hypercapnic respiratory failure, likely multifactorial, in part related to congestive heart failure, as well as possible sleep apnea syndrome/Pickwickian syndrome. The patient is currently on BiPAP at a pressure of 16 over 6 cm of water. Blood gas was noted. No significant respiratory distress. Chest x-ray shows massive cardiomegaly, right ventricular enlargement and pulm vessel congestion. Acute hypotension, probably related to aggressive diuresis and fluid shift, could be hypovolemic in nature. The patient was given a liter of IV fluids and the patient's blood pressure is improved. Systolic congestive heart failure, with an ejection fraction of 40 to 45%. Hypercarbic encephalopathy, treated with diuretics, and BiPAP therapy and the patient's mental status is adequate for now. History of atrial fibrillation with a relatively controlled ventricular response rate, rate is under better control and the patient is on anticoagulation with warfarin History of mitral valve replacement. The patient has a mechanical valve and the patient has been maintained on long-term anticoagulation with warfarin and rep eat INR is therapeutic History of hyperlipidemia. History of CVA. Repeat CAT scan of the brain on 12/16/2023 shows stable findings and the patient has chronic left sided hemiplegia History of tricuspid regurgitation. History of seizure disorder. Chronic lower extremity edema Plan: Continue BiPAP for now Give the patient Diamox 500 mg x 2 doses IV Hold the rest of the diuretics Continue anticoagulation with warfarin with a therapeutic PT/INR Use pressors if needed. The patient was given a liter of IV fluid and we will hold off any further fluid resuscitation for now. Blood pressure is stable. Overall respiratory status is stable and the patient has no signs of any CO2 narcosis Patient is a residential resident and the patient is quite debilitated Will continue to follow this patient in the intensive care unit.
--- NOTE | 2023-12-19 15:40 | P.PN ---
Subjective Progress Note Date: 12/19/23 The patient is a pleasant 73-year-old female patient with extensive cardiovascular history consistent of valvular heart disease status post mitral valve replacement using mechanical valve as well as permanent atrial fibrillation and history of stroke as well as cardiomyopathy with a EF around 40% as well as morbid obesity and hypertension and dyslipidemia and pulmonary hypertension was admitted to the hospital with a change in mental status and also she was admitted with acute hypoxic respiratory failure with a component of heart failure. The echo revealed impaired LV function with EF around 40% December 15, 2023 Patient was seen and evaluated this morning. She still hypoxic. She still hypervolemic with bilateral lower extremities edema. The echo revealed impaired LV function with EF around 40% with severe pulmonary hypertension antiradial right ventricle. The mitral valve appears to be functioning normally which is a mechanical valve which she continues to be on Coumadin with subtherapeutic INR and she continues to be on heparin for bridging. Pharmacy to manage INR. Examination is remarkable for severe bilateral lower extremity edema and diminished breathing sounds bilaterally and irregular rhythm with a systolic murmur at the left upper sternal border December 16, 2023 The patient was seen and evaluated this morning. Overall from the cardiovascular standpoint of view, she seems better but she still have bilateral lower extremities edema which we do not know was her baseline which she continues to be on Lasix IV and GFR continues to be normal but potassium is low which is going to be replaced. From the cardiovascular standpoint of view, we will continue the current medical regimen and continue IV Lasix for additional 12 to 24 hours and consider switching the patient to oral diuretics by tomorrow. INR yesterday was therapeutic and she is on Coumadin has been managed by the pharmacy. The physical examination is remarkable for mechanical first heart sounds with diminished breathing sounds bilaterally and bilateral lower extremities edema worse on the left than the right 12/16 Patient has been maintained on IV Lasix 40 mg every 12 hours. She has a negative fluid balance. Weights do not appear accurate. Repeat blood work reveals potassium 3.2, creatinine 0.75. INR 2.4. Ammonia level yesterday was 37. Potassium has been replaced. CAT scan of the brain showed no acute intracranial process. Stable lacunar infarcts bilaterally basal ganglion. Echocardiogram performed 12/13/2023 reveals EF 40%. Severely dilated right atrium left atrium and left ventricle. Mechanical mitral valve study quality is suboptimal. Severe tricuspid regurgitation. The physical examination is remarkable for mechanical first heart sounds with diminished breathing sounds bilaterally and bilateral lower extremities edema worse on the left than the right December 18, 2023 Patient is seen and examined at bedside this a.m. BP 90s over 56, heart rate 83 bpm, creatinine 0.7, BUN 18, bicarb 41. December 19, 2023 Patient was transferred to ICU because of increased work of breathing, confusion and increased hypotension. Yesterday SBP was around 90s, DBP around 50s. This morning her SBP was around high 80s low 90s. Her diuretics were stopped and she was given IV fluid. She was placed on BiPAP support. Assessment Acute hypoxic respiratory failure likely to be multifactorial Acute heart failure exacerbation secondary to HFrEF Permanent atrial fibrillation with controlled heart rate Status post mitral valve placement using mechanical valve on warfarin. History of stroke Multiple comorbid conditions including morbid obesity as well as hypertension and dyslipidemia Cardiomyopathy with EF around 40% Severe pulmonary hypertension Plan Hold lisinopril 2.5, reduce Aldactone to 12.5 g daily. Hold Bumex. Discontinue metolazone. Continue Lopressor 25 mg twice daily Continue aspirin 81 mg daily, atorvastatin 40 mg Monitor blood pressure, heart rate, telemetry, urine output. Agree with BiPAP support in ICU care. Continue anticoagulation with Coumadin, pharmacy dosing. INR 3.0. Goal INR 2.5-3.5. Objective - Vital Signs Vital signs: Vital Signs Temp 98.2 F 12/19/23 12:00 Pulse 82 12/19/23 14:45 Resp 18 12/19/23 14:45 BP 102/56 12/19/23 14:45 Pulse Ox 99 12/19/23 14:45 FiO2 40 12/19/23 14:45 Intake & Output 12/18/23 12/19/23 12/19/23 18:59 06:59 18:59 Intake Total 10 1680 Output Total 1100 300 850 Balance -1100 -290 830 Weight 152.5 kg Intake: IV 10 1680 0.9 100 Invasive Line 4 10 Invasive Line 5 20 Invasive Line 6 10 Sodium Chloride 0.9% 1, 1000 000 ml @ 999 mls/hr IV . Q1H1M ONE Rx#:[id number] Sodium Chloride 0.9% 500 500 ml 500 ml @ 999 mls/hr IV .Q31M ONE Rx#:[id number] ceFAZolin 2 gm In Sodium 50 Chloride 0.9% 50 ml @ 100 mls/hr IVPB Q8H [facility] Rx#: [id number] Output: Urine 1100 300 850 Other: Voiding Method External Catheter External Catheter Indwelling Catheter # Bowel Movements 0 0 0 - Labs CBC & Chem 7: 12/19/23 08:58 12/19/23 03:24 Labs: Abnormal Lab Results - Last 24 Hours (Table) 12/16/23 12/19/23 12/19/23 Range/Units 14:21 03:24 03:24 RBC (3.80-5.40) m/uL Hgb (11.4-16.0) gm/dL Hct (34.0-46.0) % MCV (80.0-100.0) fL MCHC (31.0-37.0) g/dL Lymphocytes # (1.0-4.8) k/uL PT 29.4 H (10.0-12.5) sec INR 3.0 H (<1.2) ABG pH (7.35-7.45) ABG pCO2 (35-45) mmHg ABG pO2 (83-108) mmHg ABG HCO3 (21-25) mmol/L ABG Total CO2 (19-24) mmol/L ABG O2 Saturation (94-97) % Hemoglobin (11.4-16.0) gm/dL Sodium 135 L (137-145) mmol/L Chloride 90 L (98-107) mmol/L Carbon Dioxide 41 H* (22-30) mmol/L BUN 21 H (7-17) mg/dL Glucose 103 H (74-99) mg/dL POC Glucose (mg/dL) (70-110) mg/dL Methylmalonic Acid 0.72 H (<0.40) umol/L 12/19/23 12/19/23 12/19/23 Range/Units 08:16 08:58 09:27 RBC 3.30 L (3.80-5.40) m/uL Hgb 10.3 L (11.4-16.0) gm/dL Hct 33.9 L (34.0-46.0) % MCV 102.7 H (80.0-100.0) fL MCHC 30.3 L (31.0-37.0) g/dL Lymphocytes # 0.7 L (1.0-4.8) k/uL PT (10.0-12.5) sec INR (<1.2) ABG pH 7.33 L (7.35-7.45) ABG pCO2 80 H* (35-45) mmHg ABG pO2 113 H (83-108) mmHg ABG HCO3 42 H* (21-25) mmol/L ABG Total CO2 45 H (19-24) mmol/L ABG O2 Saturation 98.5 H (94-97) % Hemoglobin 9.9 L (11.4-16.0) gm/dL Sodium (137-145) mmol/L Chloride (98-107) mmol/L Carbon Dioxide (22-30) mmol/L BUN (7-17) mg/dL Glucose (74-99) mg/dL POC Glucose (mg/dL) 179 H (70-110) mg/dL Methylmalonic Acid (<0.40) umol/L 12/19/23 Range/Units 11:30 RBC (3.80-5.40) m/uL Hgb (11.4-16.0) gm/dL Hct (34.0-46.0) % MCV (80.0-100.0) fL MCHC (31.0-37.0) g/dL Lymphocytes # (1.0-4.8) k/uL PT (10.0-12.5) sec INR (<1.2) ABG pH (7.35-7.45) ABG pCO2 (35-45) mmHg ABG pO2 (83-108) mmHg ABG HCO3 (21-25) mmol/L ABG Total CO2 (19-24) mmol/L ABG O2 Saturation (94-97) % Hemoglobin (11.4-16.0) gm/dL Sodium (137-145) mmol/L Chloride (98-107) mmol/L Carbon Dioxide (22-30) mmol/L BUN (7-17) mg/dL Glucose (74-99) mg/dL POC Glucose (mg/dL) 130 H (70-110) mg/dL Methylmalonic Acid (<0.40) umol/L Microbiology - Last 24 Hours (Table) 12/17/23 13:07 Blood Culture - Preliminary Blood 12/13/23 03:35 Blood Culture - Final Blood
[2023-12-19 16:31] LABS: Glucose,Whole Blood 149 mg/dL (70-110)
[2023-12-20 03:12] LABS: Basophils % (A) 0 %; Eosinophils # (A) 0.5 k/uL (0-0.7); Eosinophils % (A) 6 %; HCT 35.3 % (34.0-46.0); HGB 10.7 gm/dL (11.4-16.0); Hypochromasia Marked; Lymphocytes % (A) 12 %; MCH 31.6 pg (25.0-35.0); MCHC 30.4 g/dL (31.0-37.0); MCV 103.9 fL (80.0-100.0); Macrocytosis Slight; Mean Platelet Volume 7.8; Monocytes # (A) 0.6 k/uL (0-1.0); Monocytes % (A) 8 %; Neutrophils # (A) 5.7 k/uL (1.3-7.7); Neutrophils % (A) 72 %; Platelet Count 205 k/uL (150-450); RDW 13.8 % (11.5-15.5)
[2023-12-20 03:18] LABS: Prothrombin Time 29.2 sec (10.0-12.5)
[2023-12-20 03:40] LABS: Glucose 134 mg/dL (74-99); Sodium 138 mmol/L (137-145)
[2023-12-20 03:41] LABS: African American GFR (CKD) 65 (>60 ml/min/1.73 sqM); Anion Gap 6 mmol/L; Blood Urea Nitrogen 16 mg/dL (7-17); Calcium 8.4 mg/dL (8.4-10.2); Chloride 92 mmol/L (98-107); Non-African American GFR(CKD) 56 (>60 ml/min/1.73 sqM); Potassium 3.2 mmol/L (3.5-5.1)
[2023-12-20 03:52] LABS: Carbon Dioxide 40 mmol/L (22-30)
[2023-12-20] MEDS: POTASSIUM CHLORIDE 10 MEQ in WATER FOR INJECTION 1 100ML.BAG IVPB SCH (04:10)
--- NOTE | 2023-12-20 08:01 | XR ---
EXAMINATION TYPE: XR chest 1V portable DATE OF EXAM: 12/20/2023 5:46 AM COMPARISON: 12/19/2023 CLINICAL INDICATION: Female, 73 years old with history of Resp Status, TECHNIQUE: XR chest 1V portable view(s) obtained. FINDINGS: The heart size is enlarged. Sternotomy wires are present. The pulmonary vasculature is normal. The lungs are clear. IMPRESSION: 1. Cardiomegaly. 2. No acute pulmonary process. [facility], , 12/20/2023 7:59 AM
[2023-12-20] MEDS ORDERED: VANCOMYCIN IV PER PHARMACY 1 EACH MISC MISCELLANE PRN (09:47)
--- NOTE | 2023-12-20 09:50 | P.CONS ---
History of Present Illness - Reason for Consult Consult date: 12/19/23 Right wrist cellulitis Requesting physician: Lin Villalobos - Chief Complaint Shortness of breath x days - History of Present Illness Patient is a 73-year-old female with a past medical history significant for atrial fibrillation coronary disease CVA TIA hyperlipidemia pneumonia seizure disorder patient initially presented to hospital about a week ago on 12/13/2023 for evaluation of increasing shortness of breath and confusion and the patient has been evaluated and treated by admitting pulmonary and cardiology as well as neurology services, patient was noticed to have hypotension with a systolic in the 60s for the patient was transferred down to the ICU patient also have a IV site on the right wrist that apparently has gone bad IV has been discontinued and was noticed to having some purulent drainage and the patient was started on IV cefazolin infectious disease was consulted for further management of antibiotic therapy patient time my evaluation is lethargic on the BiPAP and cannot provide any history patient did have white count of 7.7 creatinine is 1.01 UA has been negative patient did have a chest x-ray mild left lower lobe infiltrate cardiomegaly Review of Systems Positive points has been mentioned in HPI complete review could not be obtained because of his underlying mental status Past Medical History Past Medical History: Atrial Fibrillation, Coronary Artery Disease (CAD), CVA/TIA, Hyperlipidemia, Pneumonia, Seizure Disorder Additional Past Medical History / Comment(s): FALLS, CONCUSSION, STROKE AFFECTED LT SIDE UNABLE TO USE LT ARM AND LT LE FLACCID. LT SHOULDER FRACTURE 2016, 2018, BAKERS BEHIND RT KNEE History of Any Multi-Drug Resistant Organisms: None Reported Past Surgical History: Appendectomy, Cardiac Valve Replacement, Cholecystectomy, Heart Catheterization, Tubal Ligation Additional Past Surgical History / Comment(s): COLONOSCOPY, STATED HAD A "MITRAL VALVE REPLACEMENT" Past Anesthesia/Blood Transfusion Reactions: No Reported Reaction Past Psychological History: Depression Smoking Status: Never smoker Past Alcohol Use History: None Reported Past Drug Use History: None Reported - Past Family History Father Family Medical History: Cancer Additional Family Medical History / Comment(s): BRAIN AND LUNG CANCER Mother Family Medical History: Coronary Artery Disease (CAD), Dementia Additional Family Medical History / Comment(s): PT COULDN'T REMEMBER WHAT MOM FROM Medications and Allergies Home Medications Medication Instructions Recorded Confirmed Type Atorvastatin Calcium [Lipitor] 40 mg PO HS 09/06/15 12/13/23 History Sennosides [Senna] 8.6 mg PO BID 10/01/17 12/13/23 History Metoprolol Tartrate [Lopressor] 12.5 mg PO BID 03/03/21 12/13/23 History Sertraline [Zoloft] 50 mg PO DAILY 03/03/21 12/13/23 History Potassium Chloride ER [K-Dur 20] 20 meq PO BID #0 03/05/21 12/13/23 Rx Betamethasone Dipropionate 1 applic TOPICAL Q24H PRN 12/13/23 12/13/23 History [Betamethasone Dipropionate 0.05% Cream] Cetirizine HCl [Zyrtec] 10 mg PO DAILY 12/13/23 12/13/23 History Docusate Sodium [Dok] 100 mg PO DAILY 12/13/23 12/13/23 History Docusate [Colace] 100 mg PO BID PRN 12/13/23 12/13/23 History Gabapentin 600 mg PO BID 12/13/23 12/13/23 History Miconazole Nitrate [Lotrimin AF 1 applic TOPICAL BID 12/13/23 12/13/23 History Powder] Naloxone HCl 0.4 mg IM DIRECTED PRN 12/13/23 12/13/23 History Naloxone HCl [Narcan] 4 mg NASAL DIRECTED PRN 12/13/23 12/13/23 History Pramipexole [Mirapex] 0.5 mg PO HS 12/13/23 12/13/23 History Spironolactone [Aldactone] 50 mg PO DAILY 12/13/23 12/13/23 History Warfarin Sodium 2 mg PO HS 12/13/23 12/13/23 History polyethylene glycoL 3350 [Miralax] 17 gm PO DAILY 12/13/23 12/13/23 History Aspirin 81 mg PO DAILY tab 12/18/23 Rx Bumetanide [BUMEX] 1 mg PO BID@0900,1600 tab 12/18/23 Rx Cephalexin [Keflex] 500 mg PO QID 5 Days #20 cap 12/18/23 Rx Folic Acid 1 mg PO DAILY tab 12/18/23 Rx Midodrine [ProAmatine] 5 mg PO TID #0 12/18/23 12/13/23 Rx Morphine Sulfate ER [Ms Contin] 30 mg PO HS #3 tab 12/18/23 Rx levETIRAcetam [Keppra] 1,500 mg PO BID tab 12/18/23 Rx lisinopriL [Zestril] 2.5 mg PO DAILY tab 12/18/23 Rx metOLazone [Zaroxolyn] 5 mg PO DAILY tab 12/18/23 Rx Allergies Allergy/AdvReac Type Severity Reaction Status Date / Time codeine Allergy Chest Pain Verified 12/13/23 03:19 lorazepam [From Ativan] AdvReac GIVES THE Verified 12/13/23 03:19 OPPOSITE EFFECT Physical Exam Vitals: Vital Signs Temp Pulse Pulse Resp BP BP BP 12/19/23 11:44 89 12/19/23 11:30 112 H 10 L 90/76 12/19/23 11:29 12/19/23 11:28 89 12/19/23 11:15 101 H 13 91/56 12/19/23 11:00 101 H 16 92/81 12/19/23 10:45 12 63/45 12/19/23 10:30 88 12 88/44 12/19/23 10:15 81 14 91/43 12/19/23 10:00 81 10 L 71/41 12/19/23 09:45 77 12 89/45 12/19/23 09:30 84 13 81/45 12/19/23 09:15 80 15 55/44 12/19/23 09:10 84 29 H 55/44 12/19/23 09:00 89 9 L 87/48 12/19/23 08:50 101 H 13 87/48 12/19/23 08:47 12/19/23 08:40 79 22 90/39 12/19/23 08:30 87 14 95/64 12/19/23 08:20 93 20 118/107 12/19/23 08:15 12/19/23 07:10 97.8 F 80 14 59/33 12/19/23 06:52 91/58 12/19/23 03:49 98.9 F 73 14 90/56 12/19/23 00:10 12/19/23 00:00 99.8 F H 68 12 12/18/23 21:54 90 12/18/23 21:40 89 12/18/23 20:00 97.6 F 79 18 98/53 12/18/23 15:32 104 H 12/18/23 15:27 98 12/18/23 15:00 97.5 F L 74 14 109/62 12/18/23 13:01 83 Pulse Ox FiO2 12/19/23 11:44 12/19/23 11:30 100 40 12/19/23 11:29 40 12/19/23 11:28 12/19/23 11:15 97 12/19/23 11:00 100 40 12/19/23 10:45 99 12/19/23 10:30 100 40 12/19/23 10:15 100 12/19/23 10:00 99 40 12/19/23 09:45 100 12/19/23 09:30 100 12/19/23 09:15 100 40 12/19/23 09:10 98 12/19/23 09:00 100 12/19/23 08:50 100 12/19/23 08:47 40 12/19/23 08:40 100 12/19/23 08:30 100 12/19/23 08:20 12/19/23 08:15 98 12/19/23 07:10 99 12/19/23 06:52 12/19/23 03:49 95 12/19/23 00:10 40 12/19/23 00:00 95 12/18/23 21:54 12/18/23 21:40 12/18/23 20:00 96 12/18/23 15:32 12/18/23 15:27 12/18/23 15:00 100 40 12/18/23 13:01 Intake and Output 12/18/23 12/19/23 12/19/23 22:59 06:59 14:59 Intake Total 10 1560 Output Total 400 300 425 Balance -390 -300 1135 Intake: IV 10 1560 0.9 40 Invasive Line 4 10 Invasive Line 5 10 Invasive Line 6 10 Sodium Chloride 0.9% 1, 1000 000 ml @ 999 mls/hr IV . Q1H1M ONE Rx#:[id number] Sodium Chloride 0.9% 500 500 ml 500 ml @ 999 mls/hr IV .Q31M ONE Rx#:[id number] Output: Urine 400 300 425 Other: Voiding Method External Catheter # Bowel Movements 0 0 0 GENERAL DESCRIPTION: Elderly female on the BiPAP no tachypnea or accessory muscle respiration HEENT: Shows Pallor , no scleral icterus. Oral mucous membrane is dry. NECK: Trachea central, no thyromegaly. LUNGS: Unlabored breathing. Decreased breath sounds at the base HEART: S1, S2, regular rate and rhythm. No loud murmur ABDOMEN: Soft, no tenderness , guarding or rigidity, no organomegaly EXTREMITIES: Right wrist did have a open wound with surrounding redness minimal drainage SKIN: No rash, no masses palpable. NEUROLOGICAL: The patient is unresponsive on the BiPAP Results CBC & Chem 7: 12/20/23 02:42 12/20/23 02:42 Labs: Abnormal Lab Results - Last 24 Hours (Table) 12/16/23 12/18/23 12/19/23 Range/Units 14:21 10:38 03:24 RBC (3.80-5.40) m/uL Hgb (11.4-16.0) gm/dL Hct (34.0-46.0) % MCV (80.0-100.0) fL MCHC (31.0-37.0) g/dL Lymphocytes # (1.0-4.8) k/uL PT 29.4 H (10.0-12.5) sec INR 3.0 H (<1.2) ABG pH (7.35-7.45) ABG pCO2 (35-45) mmHg ABG pO2 (83-108) mmHg ABG HCO3 (21-25) mmol/L ABG Total CO2 (19-24) mmol/L ABG O2 Saturation (94-97) % Hemoglobin (11.4-16.0) gm/dL Sodium (137-145) mmol/L Chloride 93 L (98-107) mmol/L Carbon Dioxide 41 H* (22-30) mmol/L BUN 18 H (7-17) mg/dL Glucose 112 H (74-99) mg/dL POC Glucose (mg/dL) (70-110) mg/dL Methylmalonic Acid 0.72 H (<0.40) umol/L 12/19/23 12/19/23 12/19/23 Range/Units 03:24 08:16 08:58 RBC 3.30 L (3.80-5.40) m/uL Hgb 10.3 L (11.4-16.0) gm/dL Hct 33.9 L (34.0-46.0) % MCV 102.7 H (80.0-100.0) fL MCHC 30.3 L (31.0-37.0) g/dL Lymphocytes # 0.7 L (1.0-4.8) k/uL PT (10.0-12.5) sec INR (<1.2) ABG pH (7.35-7.45) ABG pCO2 (35-45) mmHg ABG pO2 (83-108) mmHg ABG HCO3 (21-25) mmol/L ABG Total CO2 (19-24) mmol/L ABG O2 Saturation (94-97) % Hemoglobin (11.4-16.0) gm/dL Sodium 135 L (137-145) mmol/L Chloride 90 L (98-107) mmol/L Carbon Dioxide 41 H* (22-30) mmol/L BUN 21 H (7-17) mg/dL Glucose 103 H (74-99) mg/dL POC Glucose (mg/dL) 179 H (70-110) mg/dL Methylmalonic Acid (<0.40) umol/L 12/19/23 12/19/23 Range/Units 09:27 11:30 RBC (3.80-5.40) m/uL Hgb (11.4-16.0) gm/dL Hct (34.0-46.0) % MCV (80.0-100.0) fL MCHC (31.0-37.0) g/dL Lymphocytes # (1.0-4.8) k/uL PT (10.0-12.5) sec INR (<1.2) ABG pH 7.33 L (7.35-7.45) ABG pCO2 80 H* (35-45) mmHg ABG pO2 113 H (83-108) mmHg ABG HCO3 42 H* (21-25) mmol/L ABG Total CO2 45 H (19-24) mmol/L ABG O2 Saturation 98.5 H (94-97) % Hemoglobin 9.9 L (11.4-16.0) gm/dL Sodium (137-145) mmol/L Chloride (98-107) mmol/L Carbon Dioxide (22-30) mmol/L BUN (7-17) mg/dL Glucose (74-99) mg/dL POC Glucose (mg/dL) 130 H (70-110) mg/dL Methylmalonic Acid (<0.40) umol/L Microbiology - Last 24 Hours (Table) 12/17/23 13:07 Blood Culture - Preliminary Blood 12/13/23 03:35 Blood Culture - Final Blood Assessment and Plan (1) Cellulitis of right wrist Current Visit: Yes Status: Acute Code(s): L03.113 - CELLULITIS OF RIGHT UPPER LIMB SNOMED Code(s): 81578087805449978 (2) Phlebitis Current Visit: Yes Status: Acute Code(s): I80.9 - PHLEBITIS AND THROMBOPHLEBITIS OF UNSPECIFIED SITE SNOMED Code(s): 95861045 Plan: 1patient with right wrist cellulitis at site of previous IV now with evidence of some purulent drainage and surrounding redness likely from gram-positive skin camille 2-blood and local culture has been requested results will be followed 3-patient has been started on cefazolin see response however may need to switch her to vancomycin if no improvement by tomorrow We will follow on clinical condition and cultures to further adjust medication if needed Thank you for this consultation we will follow the patient along with you Dictation was produced using [employer] dictation software. please excuse any grammatical, word or spelling errors. Time with Patient: Greater than 30
[2023-12-20] MEDS: VANCOMYCIN 2,250 MG in SODIUM CHLORIDE 0.9% 500 ML 500 ML IVPB SCH (10:11)
[2023-12-20] MEDS: SPIRONOLACTONE 25 MG TAB PO SCH (10:12)
[2023-12-20] MEDS: FUROSEMIDE 10 MG/ML 4 ML VIAL IV SCH (12:55)
[2023-12-20] MEDS: POTASSIUM CHLORIDE ER 20 MEQ TAB.ER PO ONE (12:56)
--- NOTE | 2023-12-20 13:09 | P.PN ---
Subjective Progress Note Date: 12/20/23 Patient is a pleasant 73-year-old female was sent in because of decreased level of consciousness with concerns of aspiration. Patient was also short of breath patient is found to be in hypercapnic respiratory failure with pH of 7.3 and pCO2 of 90 and pO2 of around 70. Patient does have history of obstructive sleep apnea morbidly obese female uses CPAP machine at nighttime. Patient does have multiple other medical problems including congestive heart failure with a EF of around 40 to 45% chest x-ray showing some pulmonary edema and BNP of 1700. Patient does not have any fever chills presently on BiPAP at this time. Patient is on Bumex 2 mg twice a day as an outpatient. Patient does have mild pedal edema on exam. Patient does use oxygen at baseline. Patient is mostly bedbound bilateral does have bilateral foot drop has history of cerebrovascular accident as well in the past 12/14/2023 Patient is evaluated today in follow up on the medical floor. Patient has been continued on the bipap overnight. Currently down to 4L of oxygen, and reports not wearing any home oxygen. Patients CO2 is 46. Patient remains on IV lasix 40 mg Q12 hour. Patient has been started on IV heparin bridge as she has been subtherapeutic on warfarin. CO2 is 46 today. 12/15/2023 Patient is evaluated today in follow-up on the medical floor. She has been continued on BiPAP overnight currently on nasal cannula awake alert oriented. Remains on IV heparin, INR today is 2.5. Sodium levels 136 potassium 3.0 today. 12/16/2023 Patient is evaluated today in follow-up, nursing staff reports a another episode of possible seizure-like activity. Patient is not appear to be having any type of postictal state. Neurology was consulted. she is continued on Keppra 1000 mg twice a day and we will check a Keppra level. States that she has not had a seizure in quite a long time. She continues on IV Lasix 40 mg every 12 hours with strict intake and output monitoring. Today is 2.4, sodium 137, potassium 3.3, CO2 of 42, BUN of 14, creatinine of 0.73. Calcium of 8.1. 12/17/2023 Patient is evaluated today in follow up on the medical floor. She remains AO x 3 with moments of confusion and neurology was consulted with concern for possible seizure like activity. Patient has been transitioned to oral bumex BID. CO2 elevated at 41 today. Potassium 3.2. Ammonia level 37. Has reddened lump on the right wrist from old IV site with evidence of erythema up the right arm. 12/19/2023 Patient is evaluated in follow-up patient was moved to the intensive care unit earlier this morning secondary to decreased blood pressures in the 60s systolic. Patient was recently started on low-dose lisinopril 2.5 mg which will be stopped at this time. Patient only she continues on oral Bumex twice a day, metolazone as well as Aldactone. Held this morning. so Far patient has received 2 L of fluid bolus. Patient is requiring vasopressor support. The IV site on the right wrist is opened up with purulent drainage with surrounding cellulitis not improving with oral Keflex. Wound cultures are requested and patient will be transition to IV cefazolin with an ID consultation. Chest x-ray today shows mild left lower lobe infiltrate. 12/20/2023 Patient remains in the ICU on low dose levophed. Blood pressure in the 90s systolic. Lisinipril, bumex have been held. Aldactone decreased. The right wrist wound is showing presumptive MRSA on the culture. She is on IV vancomycin, ID following. Blood cultures are currently pending. More awake and alert today. Was continued on BiPAP throughout the day yesterday, CO2 at 40 today. Sodium 138, potassium 3.9. Urinalysis negative. Chest xray showing no acute pulmonary process. Review of Systems Constitutional: Denied any fatigue denied any fever. Cardio vascular: denied any chest pain, palpitations Gastrointestinal: denied any nausea, vomiting, diarrhea Pulmonary: Denied any shortness of breath cough Neurologic denied any new focal deficits All inpatient medications were reviewed and appropriate changes in these medications as dictated in the interval history and assessment and plan. PHYSICAL EXAMINATION: GENERAL: Morbidly obese drowsy oriented x 3, patient is on nasal cannula. BiPAP HEENT: Pupils are round and equally reacting to light. EOMI. No scleral icterus. No conjunctival pallor. Normocephalic, atraumatic. No pharyngeal erythema. No thyromegaly. CARDIOVASCULAR: S1 and S2 present. No murmurs, rubs, or gallops. PULMONARY: Good air entry with mild expiratory wheezing on exam ABDOMEN: Soft, nontender, nondistended, normoactive bowel sounds. No palpable organomegaly. MUSCULOSKELETAL: No joint swelling or deformity. EXTREMITIES: No cyanosis, clubbing, or my lower EXTR bilateral pedal edema NEUROLOGICAL: Gross neurological examination did not reveal any focal deficits. Has old left arm contractures and left foot drop. SKIN: No rashes. Right wrist open wound with purulent drainage and surrounding cellulitis Assessment and plan -Acute hypoxic and hypercapnic respiratory failure on chronic hypercapnic respiratory failure and is is probably because of obesity sleep apnea and mild bronchitis may have contributed to CO2 retention Batient is on BiPAP at HS -Acute hypoxic respiratory failure secondary to congestive heart failure chronic systolic function EF of around 40 to 45. -Pulmonary hypertension -Hypovolemic shock currently on levophed and in the ICU. 2L fluid bolus given. BPs better today. -Hypokalemia from diuresis improved. -Altered mental status secondary to acute metabolic encephalopathy and elevated CO2 levels. -Respiratory acidosis secondary to CO2 retention -Right wrist cellulitis and purulent wound from IV site with cultures showing presumptive MRSA. Now on IV vancomycin and ID consultation. 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 -History of CVA in the past -Seizure disorder for which patient is on Keppra which will be resumed -Hyperlipidemia -Obesity and sleep apnea -Chronic medical debility -Foot drop -Peripheral neuropathy for which patient is on gabapentin which will be resumed DVT prophylaxis: Warfarin GI prophylaxis Full Code Plan Keppra has been increased by neurology Patient has received 2L fluid bolus and started on levophed Will need to hold the bumex, metolozone Aldactone decreased Hold lisinopril Monitor blood pressures Continue BiPAP Blood cultures pending, wound culture growing presumptive MRSA ID following started on IV vancomycin CBC BMP in AM The impression and plan of care has been dictated by Lin Villalobos, Nurse Practitioner as directed. Dr. Dianna MD I have performed a history and physical examination and medical decision making of this patient, discussed the same with the dictator, and agree with the dictators assessment and plan as written, documented as a scribe. Based on total visit time, I have performed more than 50% of this visit. Objective - Vital Signs Vital signs: Vital Signs Temp 98.7 F 12/20/23 08:00 Pulse 91 12/20/23 11:15 Resp 20 12/20/23 11:15 BP 97/62 12/20/23 11:15 Pulse Ox 100 12/20/23 11:15 FiO2 40 12/20/23 04:00 Intake & Output 12/19/23 12/20/23 12/20/23 18:59 06:59 18:59 Intake Total 2011.468 1111.951 830.584 Output Total 1440 1500 615 Balance 571.468 -388.049 215.584 Weight 154 kg Intake: IV 1790 550 180 0.9 200 220 80 Invasive Line 5 30 30 Invasive Line 6 10 Potassium Chloride 10 meq 200 100 In Water For Injection 1 100ml.bag @ 100 mls/hr IVPB Q1HR [facility] Rx#: [id number] Sodium Chloride 0.9% 1, 1000 000 ml @ 999 mls/hr IV . Q1H1M ONE Rx#:[id number] Sodium Chloride 0.9% 500 500 ml 500 ml @ 999 mls/hr IV .Q31M [facility] Rx#:[id number] ceFAZolin 2 gm In Sodium 50 100 Chloride 0.9% 50 ml @ 100 mls/hr IVPB Q8H [facility] Rx#: [id number] Intake, IV Titration 221.468 561.951 650.584 Amount Norepinephrine 4 mg In 221.468 561.951 150.584 Sodium Chloride 0.9% 250 ml @ 0.03 MCG/KG/MIN 17. 431 mls/hr IV .[id number] [facility] Rx#:[id number] Vancomycin 2,250 mg In 500 Sodium Chloride 0.9% 500 ml 500 ml @ 167 mls/hr IVPB Q24HR [facility] Rx#: [id number] Output: Urine 1440 1500 615 Other: Voiding Method Indwelling Catheter Indwelling Catheter Indwelling Catheter # Bowel Movements 0 - Labs CBC & Chem 7: 12/20/23 02:42 12/20/23 10:57 Labs: Abnormal Lab Results - Last 24 Hours (Table) 12/19/23 12/20/23 12/20/23 Range/Units 16:30 02:42 02:42 RBC 3.40 L (3.80-5.40) m/uL Hgb 10.7 L (11.4-16.0) gm/dL MCV 103.9 H (80.0-100.0) fL MCHC 30.4 L (31.0-37.0) g/dL PT 29.2 H (10.0-12.5) sec INR 3.0 H (<1.2) Potassium (3.5-5.1) mmol/L Chloride (98-107) mmol/L Carbon Dioxide (22-30) mmol/L Glucose (74-99) mg/dL POC Glucose (mg/dL) 149 H (70-110) mg/dL 12/20/23 Range/Units 02:42 RBC (3.80-5.40) m/uL Hgb (11.4-16.0) gm/dL MCV (80.0-100.0) fL MCHC (31.0-37.0) g/dL PT (10.0-12.5) sec INR (<1.2) Potassium 3.2 L (3.5-5.1) mmol/L Chloride 92 L (98-107) mmol/L Carbon Dioxide 40 H (22-30) mmol/L Glucose 134 H (74-99) mg/dL POC Glucose (mg/dL) (70-110) mg/dL Microbiology - Last 24 Hours (Table) 12/19/23 13:40 Gram Stain - Preliminary Wrist - Right Wound Culture - Preliminary Presumptive MRSA 12/17/23 13:07 Blood Culture - Preliminary Blood Assessment and Plan Time with Patient: Less than 30
--- NOTE | 2023-12-20 14:04 | P.PN ---
Subjective Progress Note Date: 12/20/23 73-year-old female originally seen by Dr. Carroll in the emergency room, and then followed by Dr. Cárdenas afterwards. This is a 73-year-old female who presented with shortness of breath and difficulty breathing. The patient was seen in the emergency department, on December 12. The patient was very confused when she first came in, and was a very poor historian. The patient was initially placed on BiPAP, with settings of 16/6, and 40%. She remains on BiPAP. Patient has a history of atrial fibrillation, coronary disease, CVA, hyperlipidemia, pneumonia, and seizure disorder. The patient apparently also has a previous history of either mitral valve replacement or repair. She is a lifelong non-smoker. Laboratory data includes a white count 6.7, hemoglobin 10.5, hematocrit 34.5, and a platelet count of 103,000. PT was 17.3 with an INR of 1.7. Venous blood gas showed a pCO2 of 98, and a pH of 7.3. Sodium 136, potassium 4.3, chlorides 91, CO2 41, BUN and creatinine were 16 and 0.66. Glucose 159. Calcium 8.2. Troponin was 0.012. N-terminal proBNP was 1760. Chest x-ray showed sternal wires consistent with previous open heart surgery. Cardiac silhouette is enlarged. Costophrenic angles are blunted. This x-ray in my opinion is consistent with pulmonary vascular congestion. EKG shows evidence of atrial fibrillation. Progress note dated December 14, 2023. 73-year-old female seen in room 355. She was initially evaluated in the emergency department. She came in with confusion, and she was a very poor historian. The patient was placed on BiPAP, initially with settings of 16/6, 40%. She has a history of atrial fibrillation, coronary disease, CVA, hyperlipidemia, pneumonia, and seizure disorder. Currently, the patient is on 3 L of oxygen. The BiPAP is in the room. Is not clear to me whether or not she used it last night. She does continue on IV heparin. Current labs include a white count 5.6, hemoglobin 9.6, hematocrit 30.7, and a platelet count of 146,000. PT was 22.7. INR 2.3. PTT was 67.4. Sodium 136, potassium 3.7, chloride 88, CO2 46, BUN 18, creatinine 0.66. Troponins were 0.015, and 0.015. Progress note dated December 15, 2023. 73-year-old female seen again in room 355. The patient is resting comfortably in bed. She denies any complaints. Currently, she is on 2 L of oxygen. She is getting IV heparin. She did use BiPAP last night, with settings of 16/6, and 40%. The patient continues in atrial fibrillation. Current labs include a PTT of 63.1. Sodium 136, potassium 3, chloride 89, CO2 42, BUN 18, creatinine 0.69. Calcium is 8.2. Progress note dated December 16, 2023. 73-year-old female again seen in room 355. The patient is not receiving any IV fluids. The patient is on O2 at 2 L. She did use her BiPAP device last night, with settings of 16/6, and 40%. The patient feels like she is improved. She denies any worsening or more severe shortness of breath, cough, wheezing, chest tightness, or phlegm production. She also denies any chest pain or pressure. Current labs include a PT of 23.5 and an INR of 2.4. Sodium 137, potassium 3.3, chlorides 91, CO2 42, BUN 14, creatinine 0.73. Urine is negative. 12/17/2023, patient is being seen for a follow-up. This patient is awake and alert. She is currently off BiPAP. Overnight, she was on a BiPAP pressure of 16 over 6 cm of water and the patient is currently on 3 L of oxygen by nasal cannula. She is a intermediate resident and she is quite debilitated from the previous CVA and she does have left-sided hemiplegia and chronic lower extremity edema. She was taken off the IV Lasix and the patient is currently on Bumex 1 mg p.o. twice a day. The patient also had a echocardiogram that showed a ejection fraction of 40%. Severe RV dilatation with mild pulmonary hype rtension. The patient also has a mechanical valve/mitral and the patient remains on long-term anticoagulant with warfarin. INR is therapeutic at this point in time. Along with Bumex, the patient is on Zaroxolyn 5 mg p.o. on a daily basis. Rest of the medications remain unchanged. No significant shortness of breath. Repeat CAT scan of the brain done on 12/16/2023 showed stable lacunar infarcts involving the basal ganglia. No acute intracranial abnormalities noted. Other comorbidities include chronic atrial fibrillation, coronary artery disease, hyperlipidemia and seizure disorders. 12/18/2023, the patient is being seen for a follow-up. This morning, the patient is on 2 L of oxygen by nasal cannula. Overnight, the patient was on a BiPAP pressure of 16 over 4 cm of water with FiO2 of 40%. This fluid balance is -3 L over the past 24 hours and the patient continues to have edema lower extremities bilaterally. Remains on a combination of Bumex 1 mg p.o. twice daily, Aldactone 50 mg p.o. daily Zaroxolyn 5 mg p.o. daily. She was given Seroquel overnight and the patient feels to be slightly more sleepy than usual. Otherwise, no other significant events overnight. White cell count of 5.9 with a hemoglobin of 10.2 and a platelet count of 131. BUN is 18 with a creatinine 0.7 and sodium levels at 137 and the potassium level is 3.7. 12/19/2023, the patient got transferred to the intensive care and that the patient became lethargic and hypotensive. It was noted that the systolic blood pressure was running as low as 60 on the medical floor. Based on that, the patient got transferred to the intensive care unit. Diuretics were placed on hold and the patient was given a liter of bolus of IV fluids. Most recent blood pressure currently is 90/76. Urine output is still adequate. The patient was also placed on a BiPAP. This morning, she is on a BiPAP of 16 over 6 cm of water with an FiO2 of 50%. Blood gas was done in the ICU that showed a pH of 7.33 with a pCO2 of 80 and pO2 of 113. This was done while the patient was on a BiPAP. The white cell count is 7.7, it was 10.3 and a platelet count of 168. UA is negative. The rest of the electrolytes show a serum bicarb of 41, sodium levels of 135, potassium is at 3.7. BUN is at 21 with a creatinine of 1.01. Arousable, communicating. Denies having any chest pain. She has a area of skin ulcer that is developed at the level of her wrist with some minimal purulent drainage and erythema around it and the patient is currently on IV cefazolin. On 12/20/2023, the patient is awake. Overnight, the patient stayed on the BiPAP at a pressure of 16/6 with an FiO2 of 40% and currently the patient is on 4 L of oxygen by nasal cannula. The patient received IV fluids and the patient is currently at KVO. Norepinephrine was started at a dose of 0.06 mcg/kg/min. Urine output is adequate. Fluid balance over the past 24 hours +180 cc. No signs of any CO2 narcosis. The patient was given 2 doses of Diamox yesterday 5 500 mg each and the serum bicarb today is at 40. Rest of the diuretics have been discontinued. The sodium is at 138, potassium is at 3.9, chloride is 92, WBC count is at 8 with a hemoglobin 10.7 and a platelet count of 248. Chest x- ray shows cardiomegaly and there is no other acute abnormalities noted. Profoundly weak. Awake and oriented and following commands and answering questions appropriately. She remains on IV cefazolin and the cellulitis in the right wrist wound is showing some improvement without any active drainage. Appropriate dressing has been also applied. Objective - Vital Signs Vital signs: Vital Signs Temp 98.7 F 12/20/23 04:00 Pulse 79 12/20/23 08:09 Resp 18 12/20/23 07:15 BP 99/41 12/20/23 07:15 Pulse Ox 100 12/20/23 07:59 FiO2 40 12/20/23 04:00 Intake & Output 12/19/23 12/20/23 12/20/23 18:59 06:59 18:59 Intake Total 2011.468 1111.951 142.757 Output Total 1440 1500 100 Balance 571.468 -388.049 42.757 Weight 154 kg Intake: IV 1790 550 120 0.9 200 220 20 Invasive Line 5 30 30 Invasive Line 6 10 Potassium Chloride 10 meq 200 100 In Water For Injection 1 100ml.bag @ 100 mls/hr IVPB Q1HR [facility] Rx#: [id number] Sodium Chloride 0.9% 1, 1000 000 ml @ 999 mls/hr IV . Q1H1M [facility] Rx#:[id number] Sodium Chloride 0.9% 500 500 ml 500 ml @ 999 mls/hr IV .Q31M [facility] Rx#:[id number] ceFAZolin 2 gm In Sodium 50 100 Chloride 0.9% 50 ml @ 100 mls/hr IVPB Q8H [facility] Rx#: [id number] Intake, IV Titration 221.468 561.951 22.757 Amount Norepinephrine 4 mg In 221.468 561.951 22.757 Sodium Chloride 0.9% 250 ml @ 0.03 MCG/KG/MIN 17. 431 mls/hr IV .[id number] [facility] Rx#:[id number] Output: Urine 1440 1500 100 Other: Voiding Method Indwelling Catheter Indwelling Catheter # Bowel Movements 0 - Exam No acute distress, much more awake and alert. Currently on BiPAP at a pressure of 16 over 6 cm of water with FiO2 of 40%. The patient is morbidly obese with a BMI of 54.1 HEENT examination is grossly unremarkable. Neck supple. Full range of motion. No adenopathy thyromegaly or neck vein distention. Cardiovascular examination reveals an irregular rhythm and rate. S1-S2 normal. No S3 or S4. No discernible murmur noted. Heart sounds are distant. Lungs reveal diminished bilateral breath sounds. Scattered rhonchi. Scattered crackles are also noted. No wheezes. Breath sounds are equal. Abdomen obese, but soft. No masses or tenderness. Extremities are intact. No cyanosis or clubbing. Lower extremity edema noted. The patient has chronic contractures in the lower extremity with chronic lower extremity edema. There is also a wound with purulent base and some surrounding erythema on the right side. Skin is without rash or lesion. Neurologic examination reveals left-sided hemiplegia related to her previous CVA. - Labs CBC & Chem 7: 12/20/23 02:42 12/20/23 10:57 Labs: Abnormal Lab Results - Last 24 Hours (Table) 12/16/23 12/19/23 12/19/23 Range/Units 14:21 08:58 09:27 RBC 3.30 L (3.80-5.40) m/uL Hgb 10.3 L (11.4-16.0) gm/dL Hct 33.9 L (34.0-46.0) % MCV 102.7 H (80.0-100.0) fL MCHC 30.3 L (31.0-37.0) g/dL Lymphocytes # 0.7 L (1.0-4.8) k/uL PT (10.0-12.5) sec INR (<1.2) ABG pH 7.33 L (7.35-7.45) ABG pCO2 80 H* (35-45) mmHg ABG pO2 113 H (83-108) mmHg ABG HCO3 42 H* (21-25) mmol/L ABG Total CO2 45 H (19-24) mmol/L ABG O2 Saturation 98.5 H (94-97) % Hemoglobin 9.9 L (11.4-16.0) gm/dL Potassium (3.5-5.1) mmol/L Chloride (98-107) mmol/L Carbon Dioxide (22-30) mmol/L Glucose (74-99) mg/dL POC Glucose (mg/dL) (70-110) mg/dL Methylmalonic Acid 0.72 H (<0.40) umol/L 12/19/23 12/19/23 12/20/23 Range/Units 11: 16:30 02:42 RBC (3.80-5.40) m/uL Hgb (11.4-16.0) gm/dL Hct (34.0-46.0) % MCV (80.0-100.0) fL MCHC (31.0-37.0) g/dL Lymphocytes # (1.0-4.8) k/uL PT 29.2 H (10.0-12.5) sec INR 3.0 H (<1.2) ABG pH (7.35-7.45) ABG pCO2 (35-45) mmHg ABG pO2 (83-108) mmHg ABG HCO3 (21-25) mmol/L ABG Total CO2 (19-24) mmol/L ABG O2 Saturation (94-97) % Hemoglobin (11.4-16.0) gm/dL Potassium (3.5-5.1) mmol/L Chloride (98-107) mmol/L Carbon Dioxide (22-30) mmol/L Glucose (74-99) mg/dL POC Glucose (mg/dL) 130 H 149 H (70-110) mg/dL Methylmalonic Acid (<0.40) umol/L 12/20/23 12/20/23 Range/Units 02:42 02:42 RBC 3.40 L (3.80-5.40) m/uL Hgb 10.7 L (11.4-16.0) gm/dL Hct (34.0-46.0) % MCV 103.9 H (80.0-100.0) fL MCHC 30.4 L (31.0-37.0) g/dL Lymphocytes # (1.0-4.8) k/uL PT (10.0-12.5) sec INR (<1.2) ABG pH (7.35-7.45) ABG pCO2 (35-45) mmHg ABG pO2 (83-108) mmHg ABG HCO3 (21-25) mmol/L ABG Total CO2 (19-24) mmol/L ABG O2 Saturation (94-97) % Hemoglobin (11.4-16.0) gm/dL Potassium 3.2 L (3.5-5.1) mmol/L Chloride 92 L (98-107) mmol/L Carbon Dioxide 40 H (22-30) mmol/L Glucose 134 H (74-99) mg/dL POC Glucose (mg/dL) (70-110) mg/dL Methylmalonic Acid (<0.40) umol/L Microbiology - Last 24 Hours (Table) 12/19/23 13:40 Gram Stain - Preliminary Wrist - Right 12/17/23 13:07 Blood Culture - Preliminary Blood Assessment and Plan Plan: Acute on chronic hypoxemic and hypercapnic respiratory failure, likely multifactorial, in part related to congestive heart failure, as well as possible sleep apnea syndrome/Pickwickian syndrome. The patient treated with a BiPAP at a pressure of 16 over 6 cm of water. Blood gas was noted. No significant respiratory distress. Chest x-ray shows massive cardiomegaly, right ventricular enlargement and pulm vessel congestion. This morning, the patient was taken off the BiPAP and the patient is currently on oxygen at 4 L. Diamox was given to counteract the significant metabolic alkalosis. Acute hypotension, probably related to aggressive diuresis and fluid shift, could be hypovolemic in nature. The patient was given a liter of IV fluids and the patient's blood pressure is improved. Subsequently, the patient was started on low-dose pressors and the patient is currently on norepinephrine at 0.06 mcg/kg/min to be further weaned today. Systolic congestive heart failure, with an ejection fraction of 40 to 45%. Hypercarbic encephalopathy, treated with diuretics, and BiPAP therapy and the patient's mental status is adequate for now. The patient is currently on nasal cannula at 4 L History of atrial fibrillation with a relatively controlled ventricular response rate, rate is under better control and the patient is on anticoagulation with warfarin History of mitral valve replacement. The patient has a mechanical valve and the patient has been maintained on long-term anticoagulation with warfarin and repeat INR is therapeutic History of hyperlipidemia. History of CVA. Repeat CAT scan of the brain on 12/16/2023 shows stable findings and the patient has chronic left sided hemiplegia History of tricuspid regurgitation. History of seizure disorder. Chronic lower extremity edema Plan: Continue BiPAP for now Give the patient Diamox 500 mg x 2 doses IV, 2 additional dose to be given Hold the rest of the diuretics and the diuretics remain on hold Continue anticoagulation with warfarin with a therapeutic PT/INR Continue pressors and wean off the norepinephrine Overall respiratory status is stable and the patient has no signs of any CO2 narcosis, will repeat the blood gas in the morning Use BiPAP overnight Patient is a intermediate resident and the patient is quite debilitated Will continue to follow this patient in the intensive care unit. Evaluation was done more than 30 minutes. This is a critical care evaluation. Time with Patient: Greater than 30
--- NOTE | 2023-12-20 14:30 | P.PN ---
Subjective Progress Note Date: 12/20/23 The patient is a pleasant 73-year-old female patient with extensive cardiovascular history consistent of valvular heart disease status post mitral valve replacement using mechanical valve as well as permanent atrial fibrillation and history of stroke as well as cardiomyopathy with a EF around 40% as well as morbid obesity and hypertension and dyslipidemia and pulmonary hypertension was admitted to the hospital with a change in mental status and also she was admitted with acute hypoxic respiratory failure with a component of heart failure. The echo revealed impaired LV function with EF around 40% December 15, 2023 Patient was seen and evaluated this morning. She still hypoxic. She still hypervolemic with bilateral lower extremities edema. The echo revealed impaired LV function with EF around 40% with severe pulmonary hypertension antiradial right ventricle. The mitral valve appears to be functioning normally which is a mechanical valve which she continues to be on Coumadin with subtherapeutic INR and she continues to be on heparin for bridging. Pharmacy to manage INR. Examination is remarkable for severe bilateral lower extremity edema and diminished breathing sounds bilaterally and irregular rhythm with a systolic murmur at the left upper sternal border December 16, 2023 The patient was seen and evaluated this morning. Overall from the cardiovascular standpoint of view, she seems better but she still have bilateral lower extremities edema which we do not know was her baseline which she continues to be on Lasix IV and GFR continues to be normal but potassium is low which is going to be replaced. From the cardiovascular standpoint of view, we will continue the current medical regimen and continue IV Lasix for additional 12 to 24 hours and consider switching the patient to oral diuretics by tomorrow. INR yesterday was therapeutic and she is on Coumadin has been managed by the pharmacy. The physical examination is remarkable for mechanical first heart sounds with diminished breathing sounds bilaterally and bilateral lower extremities edema worse on the left than the right 12/16 Patient has been maintained on IV Lasix 40 mg every 12 hours. She has a negative fluid balance. Weights do not appear accurate. Repeat blood work reveals potassium 3.2, creatinine 0.75. INR 2.4. Ammonia level yesterday was 37. Potassium has been replaced. CAT scan of the brain showed no acute intracranial process. Stable lacunar infarcts bilaterally basal ganglion. Echocardiogram performed 12/13/2023 reveals EF 40%. Severely dilated right atrium left atrium and left ventricle. Mechanical mitral valve study quality is suboptimal. Severe tricuspid regurgitation. The physical examination is remarkable for mechanical first heart sounds with diminished breathing sounds bilaterally and bilateral lower extremities edema worse on the left than the right December 18, 2023 Patient is seen and examined at bedside this a.m. BP 90s over 56, heart rate 83 bpm, creatinine 0.7, BUN 18, bicarb 41. December 19, 2023 Patient was transferred to ICU because of increased work of breathing, confusion and increased hypotension. Yesterday SBP was around 90s, DBP around 50s. This morning her SBP was around high 80s low 90s. Her diuretics were stopped and she was given IV fluid. She was placed on BiPAP support. Number 09/01/2023 Patient is still maintained in ICU. For her borderline blood pressures were started on norepinephrine. Patient is extremely volume overloaded clinically with third spacing of fluid with generalized anasarca. Her creatinine and kidney function has been stable. She has not been receiving any diuretics because of low blood pressure. Assessment Acute hypoxic respiratory failure likely to be multifactorial Acute heart failure exacerbation secondary to HFrEF Permanent atrial fibrillation with controlled heart rate Status post mitral valve placement using mechanical valve on warfarin. History of stroke Multiple comorbid conditions including morbid obesity as well as hypertension and dyslipidemia Cardiomyopathy with EF around 40% Severe pulmonary hypertension Plan Patient has not been receiving any diuretics because of low blood pressure. Now that the blood pressure is better on norepinephrine support, I would recommend starting Lasix 40 mg IV twice daily. Tomorrow I would recommend patient getting a central line and an arterial line for better hemodynamic monitoring, CVP monitoring and pressor administration. I would recommend switching norepinephrine to dobutamine for renal perfusion dose at 2.5 mcg, and continue IV Lasix. Hold antihypertensives. Aldactone 12.5 mg. If renal function declines, discontinue it. She is getting acetazolamide for high bicarb Would recommend continuous BiPAP support as tolerated to reduce chronic respiratory acidosis and compensatory metabolic alkalosis Hold lisinopril 2.5, reduce Aldactone to 12.5 g daily. Hold Bumex. Discontinue metolazone. Discontinue beta-elvis Continue aspirin 81 mg daily, atorvastatin 40 mg Monitor blood pressure, heart rate, telemetry, urine output. Continue anticoagulation with Coumadin, pharmacy dosing. INR 3.0. Goal INR 2.5-3.5. Objective - Vital Signs Vital signs: Vital Signs Temp 98.5 F 12/20/23 12:00 Pulse 72 12/20/23 13:30 Resp 20 12/20/23 13:30 BP 99/50 12/20/23 13:30 Pulse Ox 98 12/20/23 13:30 FiO2 40 12/20/23 04:00 Intake & Output 12/19/23 12/20/23 12/20/23 18:59 06:59 18:59 Intake Total 2011.468 1111.951 860.584 Output Total 1440 1500 940 Balance 571.468 -388.049 -79.416 Weight 154 kg Intake: IV 1790 550 210 0.9 200 220 110 Invasive Line 5 30 30 Invasive Line 6 10 Potassium Chloride 10 meq 200 100 In Water For Injection 1 100ml.bag @ 100 mls/hr IVPB Q1HR [facility] Rx#: [id number] Sodium Chloride 0.9% 1, 1000 000 ml @ 999 mls/hr IV . Q1H1M [facility] Rx#:[id number] Sodium Chloride 0.9% 500 500 ml 500 ml @ 999 mls/hr IV .Q31M [facility] Rx#:[id number] ceFAZolin 2 gm In Sodium 50 100 Chloride 0.9% 50 ml @ 100 mls/hr IVPB Q8H [facility] Rx#: [id number] Intake, IV Titration 221.468 561.951 650.584 Amount Norepinephrine 4 mg In 221.468 561.951 150.584 Sodium Chloride 0.9% 250 ml @ 0.03 MCG/KG/MIN 17. 431 mls/hr IV .[id number] [facility] Rx#:[id number] Vancomycin 2,250 mg In 500 Sodium Chloride 0.9% 500 ml 500 ml @ 167 mls/hr IVPB Q24HR [facility] Rx#: [id number] Output: Urine 1440 1500 940 Other: Voiding Method Indwelling Catheter Indwelling Catheter Indwelling Catheter # Bowel Movements 0 - Labs CBC & Chem 7: 12/20/23 02:42 12/20/23 10:57 Labs: Abnormal Lab Results - Last 24 Hours (Table) 12/19/23 12/20/23 12/20/23 Range/Units 16:30 02:42 02:42 RBC 3.40 L (3.80-5.40) m/uL Hgb 10.7 L (11.4-16.0) gm/dL MCV 103.9 H (80.0-100.0) fL MCHC 30.4 L (31.0-37.0) g/dL PT 29.2 H (10.0-12.5) sec INR 3.0 H (<1.2) Potassium (3.5-5.1) mmol/L Chloride (98-107) mmol/L Carbon Dioxide (22-30) mmol/L Glucose (74-99) mg/dL POC Glucose (mg/dL) 149 H (70-110) mg/dL 12/20/23 Range/Units 02:42 RBC (3.80-5.40) m/uL Hgb (11.4-16.0) gm/dL MCV (80.0-100.0) fL MCHC (31.0-37.0) g/dL PT (10.0-12.5) sec INR (<1.2) Potassium 3.2 L (3.5-5.1) mmol/L Chloride 92 L (98-107) mmol/L Carbon Dioxide 40 H (22-30) mmol/L Glucose 134 H (74-99) mg/dL POC Glucose (mg/dL) (70-110) mg/dL Microbiology - Last 24 Hours (Table) 12/19/23 13:40 Gram Stain - Preliminary Wrist - Right Wound Culture - Preliminary Presumptive MRSA 12/17/23 13:07 Blood Culture - Preliminary Blood
[2023-12-20] MEDS: DEXTROSE/WATER 1 250ML.BAG with DOPamine DRIP 800 MG IV SCH (14:38)
--- NOTE | 2023-12-20 14:48 | P.PN ---
Subjective Progress Note Date: 12/20/23 I am following-up with patient and per nurse she is doing much better neurologically and is oriented X3. Patient feels she is doing better. No further seizures. Objective - Vital Signs Vital signs: Vital Signs Temp 98.5 F 12/20/23 12:00 Pulse 72 12/20/23 13:30 Resp 20 12/20/23 13:30 BP 99/50 12/20/23 13:30 Pulse Ox 98 12/20/23 13:30 FiO2 40 12/20/23 04:00 Intake & Output 12/19/23 12/20/23 12/20/23 18:59 06:59 18:59 Intake Total 2011.468 1111.951 860.584 Output Total 1440 1500 940 Balance 571.468 -388.049 -79.416 Weight 154 kg 154 kg Intake: IV 1790 550 210 0.9 200 220 110 Invasive Line 5 30 30 Invasive Line 6 10 Potassium Chloride 10 meq 200 100 In Water For Injection 1 100ml.bag @ 100 mls/hr IVPB Q1HR [facility] Rx#: [id number] Sodium Chloride 0.9% 1, 1000 000 ml @ 999 mls/hr IV . Q1H1M [facility] Rx#:[id number] Sodium Chloride 0.9% 500 500 ml 500 ml @ 999 mls/hr IV .Q31M [facility] Rx#:[id number] ceFAZolin 2 gm In Sodium 50 100 Chloride 0.9% 50 ml @ 100 mls/hr IVPB Q8H [facility] Rx#: [id number] Intake, IV Titration 221.468 561.951 650.584 Amount Norepinephrine 4 mg In 221.468 561.951 150.584 Sodium Chloride 0.9% 250 ml @ 0.03 MCG/KG/MIN 17. 431 mls/hr IV .[id number] [facility] Rx#:[id number] Vancomycin 2,250 mg In 500 Sodium Chloride 0.9% 500 ml 500 ml @ 167 mls/hr IVPB Q24HR [facility] Rx#: [id number] Output: Urine 1440 1500 940 Other: Voiding Method Indwelling Catheter Indwelling Catheter Indwelling Catheter # Bowel Movements 0 - Exam General: Lying in bed and is not in acute distress. Neuro: Patient is much more awake, alert, oriented to self, place and month but stated the year is 2024. Is following simple commands. No aphasia. Motor: Strength: Normal on the right but no movement on the left (old). - Labs CBC & Chem 7: 12/20/23 02:42 12/20/23 10:57 Labs: Abnormal Lab Results - Last 24 Hours (Table) 12/19/23 12/20/23 12/20/23 Range/Units 16:30 02:42 02:42 RBC 3.40 L (3.80-5.40) m/uL Hgb 10.7 L (11.4-16.0) gm/dL MCV 103.9 H (80.0-100.0) fL MCHC 30.4 L (31.0-37.0) g/dL PT 29.2 H (10.0-12.5) sec INR 3.0 H (<1.2) Potassium (3.5-5.1) mmol/L Chloride (98-107) mmol/L Carbon Dioxide (22-30) mmol/L Glucose (74-99) mg/dL POC Glucose (mg/dL) 149 H (70-110) mg/dL 12/20/23 Range/Units 02:42 RBC (3.80-5.40) m/uL Hgb (11.4-16.0) gm/dL MCV (80.0-100.0) fL MCHC (31.0-37.0) g/dL PT (10.0-12.5) sec INR (<1.2) Potassium 3.2 L (3.5-5.1) mmol/L Chloride 92 L (98-107) mmol/L Carbon Dioxide 40 H (22-30) mmol/L Glucose 134 H (74-99) mg/dL POC Glucose (mg/dL) (70-110) mg/dL Microbiology - Last 24 Hours (Table) 12/19/23 13:40 Gram Stain - Preliminary Wrist - Right Wound Culture - Preliminary Presumptive MRSA 12/17/23 13:07 Blood Culture - Preliminary Blood Assessment and Plan Assessment: * Altered mental status, likely due to metabolic encephalopathy and concern for seizure. On EEG has discharges left frontal and temporal region but no seizure. Reasons multifactorial as mentioned below--mentation has drastically improved and is back to baseline. 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 * Macrocytic anemia and has Folate deficiency. * Atrial fibrillation on Coumadin * CHF * History of mitral valve replacement on Coumadin * Morbid obesity * Bedbound status Plan: * EEG: Is abnormal. The background slowing is suggestive of moderate encephalopathy. There are discharges over the left frontal as well temporal which can increase risk for seizure. No seizure noted during this study. * I went on her Keppra 1000mg bid (home dose) to 1500mg bid on 12/17/2023. I also started the patient on Vimpat 50mg bid on 12/18/2023 . Keppra leve 51.4. * CT head was performed, which revealed no acute intracranial process. Stable lacunar infarcts bilateral basal ganglion. * Continue Coumadin for atrial fibrillation. INR therapeutic 2.4. * B12: 436, folate: 4.20 and I started the patient on folic acid 1mg daily * Pending MMA * Pulmonary medicine onboard for chronic hypoxemic and hypercapnic respiratory failure. Patient also has CHF. * Upon discharge, recommend the patient to follow-up with neurologist as outpatient within 2 weeks. The plan is discussed with patient and her nurse. There is no further neurological work-up. Will sign off. Please reconsult if needed. Time with Patient: Less than 30
--- NOTE | 2023-12-20 15:34 | P.PN ---
Subjective Progress Note Date: 12/20/23 Principal diagnosis: Reason for follow-up is right wrist IV site cellulitis/MRSA Patient is a 73-year-old female with a past medical history significant for atrial fibrillation coronary disease CVA TIA hyperlipidemia pneumonia seizure disorder patient initially presented to hospital for evaluation of increasing shortness of breath subsequently transferred to ICU because of hypotension also noted to have right wrist area wound with some purulent drainage concerning for previous IV site cellulitis and infection. On today's evaluation that is 12/20/2023, the patient continues to be afebrile, the patient is on more awake and alert today she is currently on 2 L current oxygen denies any chest pain or worsening cough no abdominal pain and no worsening pain to the right wrist area. Patient white count is 8.0, creatinine 1.01 local culture growing presumptive MRSA the nursing staff Objective - Vital Signs Vital signs: Vital Signs Temp 98.7 F 12/20/23 08:00 Pulse 91 12/20/23 11:15 Resp 20 12/20/23 11:15 BP 97/62 12/20/23 11:15 Pulse Ox 100 12/20/23 11:15 FiO2 40 12/20/23 04:00 Intake & Output 12/19/23 12/20/23 12/20/23 18:59 06:59 18:59 Intake Total 2011.468 1111.951 830.584 Output Total 1440 1500 615 Balance 571.468 -388.049 215.584 Weight 154 kg Intake: IV 1790 550 180 0.9 200 220 80 Invasive Line 5 30 30 Invasive Line 6 10 Potassium Chloride 10 meq 200 100 In Water For Injection 1 100ml.bag @ 100 mls/hr IVPB Q1HR [facility] Rx#: [id number] Sodium Chloride 0.9% 1, 1000 000 ml @ 999 mls/hr IV . Q1H1M [facility] Rx#:[id number] Sodium Chloride 0.9% 500 500 ml 500 ml @ 999 mls/hr IV .Q31M [facility] Rx#:[id number] ceFAZolin 2 gm In Sodium 50 100 Chloride 0.9% 50 ml @ 100 mls/hr IVPB Q8H [facility] Rx#: [id number] Intake, IV Titration 221.468 561.951 650.584 Amount Norepinephrine 4 mg In 221.468 561.951 150.584 Sodium Chloride 0.9% 250 ml @ 0.03 MCG/KG/MIN 17. 431 mls/hr IV .[id number] [facility] Rx#:[id number] Vancomycin 2,250 mg In 500 Sodium Chloride 0.9% 500 ml 500 ml @ 167 mls/hr IVPB Q24HR [facility] Rx#: [id number] Output: Urine 1440 1500 615 Other: Voiding Method Indwelling Catheter Indwelling Catheter Indwelling Catheter # Bowel Movements 0 - Exam GENERAL DESCRIPTION: An elderly female lying in bed in no distress RESPIRATORY SYSTEM: Unlabored breathing , decreased breath sounds at bases HEART: S1 S2 regular rate and rhythm , ABDOMEN: Soft , no tenderness EXTREMITIES: Right wrist wound is currently dressed no drainage - Labs CBC & Chem 7: 12/20/23 02:42 12/20/23 10:57 Labs: Abnormal Lab Results - Last 24 Hours (Table) 12/19/23 12/20/23 12/20/23 Range/Units 16:30 02:42 02:42 RBC 3.40 L (3.80-5.40) m/uL Hgb 10.7 L (11.4-16.0) gm/dL MCV 103.9 H (80.0-100.0) fL MCHC 30.4 L (31.0-37.0) g/dL PT 29.2 H (10.0-12.5) sec INR 3.0 H (<1.2) Potassium (3.5-5.1) mmol/L Chloride (98-107) mmol/L Carbon Dioxide (22-30) mmol/L Glucose (74-99) mg/dL POC Glucose (mg/dL) 149 H (70-110) mg/dL 12/20/23 Range/Units 02:42 RBC (3.80-5.40) m/uL Hgb (11.4-16.0) gm/dL MCV (80.0-100.0) fL MCHC (31.0-37.0) g/dL PT (10.0-12.5) sec INR (<1.2) Potassium 3.2 L (3.5-5.1) mmol/L Chloride 92 L (98-107) mmol/L Carbon Dioxide 40 H (22-30) mmol/L Glucose 134 H (74-99) mg/dL POC Glucose (mg/dL) (70-110) mg/dL Microbiology - Last 24 Hours (Table) 12/19/23 13:40 Gram Stain - Preliminary Wrist - Right Wound Culture - Preliminary Presumptive MRSA 12/17/23 13:07 Blood Culture - Preliminary Blood Assessment and Plan (1) Cellulitis of right wrist Current Visit: Yes Status: Acute Code(s): L03.113 - CELLULITIS OF RIGHT U PPER LIMB SNOMED Code(s): 42146412376865057 (2) Phlebitis Current Visit: Yes Status: Acute Code(s): I80.9 - PHLEBITIS AND THROMBOPHLEBITIS OF UNSPECIFIED SITE SNOMED Code(s): 19427137 (3) MRSA (methicillin resistant Staphylococcus aureus) infection Current Visit: Yes Status: Acute Code(s): A49.02 - METHICILLIN RESIS STAPH INFECTION, UNSP SITE SNOMED Code(s): 579573596 Plan: 1patient with right wrist cellulitis at site of previous IV now with evidence of some purulent drainage and surrounding redness likely from gram-positive skin camille 2-blood and local culture has been requested, blood culture pending local culture with the present to MRSA 3-cefazolin has been discontinued patient was started on vancomycin pharmacy to dose and monitor clinical course closely Dictation was produced using [employer] dictation software. please excuse any grammatical, word or spelling errors. Time with Patient: Less than 30
[2023-12-20] MEDS: POTASSIUM CHLORIDE ER 20 MEQ TAB.ER PO SCH (18:13)
[2023-12-20] MEDS: METOPROLOL TARTRATE 25 MG TAB PO SCH (20:15)
[2023-12-21 03:36] LABS: Basophils % (A) 0 %; Eosinophils # (A) 0.4 k/uL (0-0.7); Eosinophils % (A) 5 %; HCT 35.9 % (34.0-46.0); HGB 10.8 gm/dL (11.4-16.0); Hypochromasia Marked; Lymphocytes # (A) 1.1 k/uL (1.0-4.8); Lymphocytes % (A) 14 %; MCH 30.7 pg (25.0-35.0); MCHC 30.1 g/dL (31.0-37.0); MCV 102.1 fL (80.0-100.0); Macrocytosis Slight; Mean Platelet Volume 7.5; Monocytes # (A) 0.5 k/uL (0-1.0); Monocytes % (A) 7 %; Neutrophils # (A) 5.3 k/uL (1.3-7.7); Neutrophils % (A) 71 %; Platelet Count 212 k/uL (150-450); RBC 3.52 m/uL (3.80-5.40); RDW 13.9 % (11.5-15.5); WBC 7.5 k/uL (3.8-10.6)
[2023-12-21 03:52] LABS: African American GFR (CKD) 81 (>60 ml/min/1.73 sqM); Anion Gap 1 mmol/L; Blood Urea Nitrogen 18 mg/dL (7-17); Calcium 9.1 mg/dL (8.4-10.2); Carbon Dioxide 40 mmol/L (22-30); Chloride 94 mmol/L (98-107); Glucose 145 mg/dL (74-99); Non-African American GFR(CKD) 70 (>60 ml/min/1.73 sqM); Potassium 3.4 mmol/L (3.5-5.1); Sodium 135 mmol/L (137-145)
[2023-12-21 04:01] LABS: INR 2.8 (<1.2)
[2023-12-21 05:07] LABS: ABG Base Excess 11.4 mmol/L; ABG HCO3 38 mmol/L (21-25); ABG Oxygen Saturation 98.5 % (94-97); ABG PCO2 58 mmHg (35-45); ABG PH 7.42 (7.35-7.45); ABG PO2 102 mmHg (83-108); ABG TCO2 40 mmol/L (19-24); Allen Test Performed? Yes
[2023-12-21] MEDS: POTASSIUM CHLORIDE ER 20 MEQ TAB.ER PO SCH (05:58)
[2023-12-21 12:10] LABS: Potassium 3.9 mmol/L (3.5-5.1)
--- NOTE | 2023-12-21 12:24 | P.PN ---
Subjective Progress Note Date: 12/21/23 The patient is a pleasant 73-year-old female patient with extensive cardiovascular history consistent of valvular heart disease status post mitral valve replacement using mechanical valve as well as permanent atrial fibrillation and history of stroke as well as cardiomyopathy with a EF around 40% as well as morbid obesity and hypertension and dyslipidemia and pulmonary hypertension was admitted to the hospital with a change in mental status and also she was admitted with acute hypoxic respiratory failure with a component of heart failure. The echo revealed impaired LV function with EF around 40% December 15, 2023 Patient was seen and evaluated this morning. She still hypoxic. She still hypervolemic with bilateral lower extremities edema. The echo revealed impaired LV function with EF around 40% with severe pulmonary hypertension antiradial right ventricle. The mitral valve appears to be functioning normally which is a mechanical valve which she continues to be on Coumadin with subtherapeutic INR and she continues to be on heparin for bridging. Pharmacy to manage INR. Examination is remarkable for severe bilateral lower extremity edema and diminished breathing sounds bilaterally and irregular rhythm with a systolic murmur at the left upper sternal border December 16, 2023 The patient was seen and evaluated this morning. Overall from the cardiovascular standpoint of view, she seems better but she still have bilateral lower extremities edema which we do not know was her baseline which she continues to be on Lasix IV and GFR continues to be normal but potassium is low which is going to be replaced. From the cardiovascular standpoint of view, we will continue the current medical regimen and continue IV Lasix for additional 12 to 24 hours and consider switching the patient to oral diuretics by tomorrow. INR yesterday was therapeutic and she is on Coumadin has been managed by the pharmacy. The physical examination is remarkable for mechanical first heart sounds with diminished breathing sounds bilaterally and bilateral lower extremities edema worse on the left than the right 12/16 Patient has been maintained on IV Lasix 40 mg every 12 hours. She has a negative fluid balance. Weights do not appear accurate. Repeat blood work reveals potassium 3.2, creatinine 0.75. INR 2.4. Ammonia level yesterday was 37. Potassium has been replaced. CAT scan of the brain showed no acute intracranial process. Stable lacunar infarcts bilaterally basal ganglion. Echocardiogram performed 12/13/2023 reveals EF 40%. Severely dilated right atrium left atrium and left ventricle. Mechanical mitral valve study quality is suboptimal. Severe tricuspid regurgitation. The physical examination is remarkable for mechanical first heart sounds with diminished breathing sounds bilaterally and bilateral lower extremities edema worse on the left than the right December 18, 2023 Patient is seen and examined at bedside this a.m. BP 90s over 56, heart rate 83 bpm, creatinine 0.7, BUN 18, bicarb 41. December 19, 2023 Patient was transferred to ICU because of increased work of breathing, confusion and increased hypotension. Yesterday SBP was around 90s, DBP around 50s. This morning her SBP was around high 80s low 90s. Her diuretics were stopped and she was given IV fluid. She was placed on BiPAP support. December 20, 2023 Patient is still maintained in ICU. For her borderline blood pressures were started on norepinephrine. Patient is extremely volume overloaded clinically with third spacing of fluid with generalized anasarca. Her creatinine and kidney function has been stable. She has not been receiving any diuretics because of low blood pressure. December 21, 2023 Hemoglobin 10.8, INR 2.8, BUN 18, creatinine 0.8, bicarb 40, sodium 135, potassium 3.4. pH 7.42, pCO2 58, pO2 100, Patient made good amount of urine yesterday. She is -4.4 L since yesterday. She responded well to IV diuretics Lasix 40 mg twice daily. She is maintained on low-dose of norepinephrine support to her blood pressure. Today her blood pressure is 90/50, MAP around 65 to 75 mmHg. Appropriate urine output. Renal function is stable. Bicarb is 37, yesterday was 40. She is on Diamox. Assessment Acute hypoxic respiratory failure likely to be multifactorial Acute heart failure exacerbation secondary to HFrEF Permanent atrial fibrillation with controlled heart rate Status post mitral valve placement using mechanical valve on warfarin. History of stroke Multiple comorbid conditions including morbid obesity as well as hypertension and dyslipidemia Cardiomyopathy with EF around 40% Severe pulmonary hypertension Plan Reduce Lasix from twice daily to Lasix 40 mg IV daily. Hold antihypertensives. Aldactone 12.5 mg. If renal function declines, discontinue it. She is getting acetazolamide for high bicarb Would recommend continuous BiPAP support as tolerated to reduce chronic respiratory acidosis and compensatory metabolic alkalosis Hold lisinopril 2.5, Discontinue metolazone. Discontinue beta-elvis Continue aspirin 81 mg daily, atorvastatin 40 mg Monitor blood pressure, heart rate, telemetry, urine output. Continue anticoagulation with Coumadin, pharmacy dosing. INR 3.0. Goal INR 2.5-3.5.The patient is a pleasant 73-year-old female patient with extensive cardiovascular history consistent of valvular heart disease status post mitral valve replacement using mechanical valve as well as permanent atrial fibrillation and history of stroke as well as cardiomyopathy with a EF around 40% as well as morbid obesity and hypertension and dyslipidemia and pulmonary hypertension was admitted to the hospital with a change in mental status and also she was admitted with acute hypoxic respiratory failure with a component of heart failure. The echo revealed impaired LV function with EF around 40% December 15, 2023 Patient was seen and evaluated this morning. She still hypoxic. She still hypervolemic with bilateral lower extremities edema. The echo revealed impaired LV function with EF around 40% with severe pulmonary hypertension antiradial right ventricle. The mitral valve appears to be functioning normally which is a mechanical valve which she continues to be on Coumadin with subtherapeutic INR and she continues to be on heparin for bridging. Pharmacy to manage INR. Examination is remarkable for severe bilateral lower extremity edema and diminished breathing sounds bilaterally and irregular rhythm with a systolic murmur at the left upper sternal border December 16, 2023 The patient was seen and evaluated this morning. Overall from the cardiovascular standpoint of view, she seems better but she still have bilateral lower extremities edema which we do not know was her baseline which she continues to be on Lasix IV and GFR continues to be normal but potassium is low which is going to be replaced. From the cardiovascular standpoint of view, we will continue the current medical regimen and continue IV Lasix for additional 12 to 24 hours and consider switching the patient to oral diuretics by tomorrow. INR yesterday was therapeutic and she is on Coumadin has been managed by the pharmacy. The physical examination is remarkable for mechanical first heart sounds with diminished breathing sounds bilaterally and bilateral lower extremities edema worse on the left than the right 12/16 Patient has been maintained on IV Lasix 40 mg every 12 hours. She has a negative fluid balance. Weights do not appear accurate. Repeat blood work reveals potassium 3.2, creatinine 0.75. INR 2.4. Ammonia level yesterday was 37. Potassium has been replaced. CAT scan of the brain showed no acute intracranial process. Stable lacunar infarcts bilaterally basal ganglion. Echocardiogram performed 12/13/2023 reveals EF 40%. Severely dilated right atrium left atrium and left ventricle. Mechanical mitral valve study quality is suboptimal. Severe tricuspid regurgitation. The physical examination is remarkable for mechanical first heart sounds with diminished breathing sounds bilaterally and bilateral lower extremities edema worse on the left than the right December 18, 2023 Patient is seen and examined at bedside this a.m. BP 90s over 56, heart rate 83 bpm, creatinine 0.7, BUN 18, bicarb 41. December 19, 2023 Patient was transferred to ICU because of increased work of breathing, confusion and increased hypotension. Yesterday SBP was around 90s, DBP around 50s. This morning her SBP was around high 80s low 90s. Her diuretics were stopped and she was given IV fluid. She was placed on BiPAP support. December 20, 2023 Patient is still maintained in ICU. For her borderline blood pressures were started on norepinephrine. Patient is extremely volume overloaded clinically with third spacing of fluid with generalized anasarca. Her creatinine and kidney function has been stable. She has not been receiving any diuretics because of low blood pressure. December 21, 2023 Hemoglobin 10.8, INR 2.8, BUN 18, creatinine 0.8, bicarb 40, sodium 135, potassium 3.4. pH 7.42, pCO2 58, pO2 100, Patient made good amount of urine yesterday. She is -4.4 L since yesterday. She responded well to IV diuretics Lasix 40 mg twice daily. She is maintained on low-dose of norepinephrine support to her blood pressure. Today her blood pressure is 90/50, MAP around 65 to 75 mmHg. Appropriate urine output. Renal function is stable. Bicarb is 37, yesterday was 40. She is on Diamox. Assessment Acute hypoxic respiratory failure likely to be multifactorial Acute heart failure exacerbation secondary to HFrEF Permanent atrial fibrillation with controlled heart rate Status post mitral valve placement using mechanical valve on warfarin. History of stroke Multiple comorbid conditions including morbid obesity as well as hypertension and dyslipidemia Cardiomyopathy with EF around 40% Severe pulmonary hypertension Plan Reduce Lasix from twice daily to Lasix 40 mg IV daily. Hold antihypertensives. Aldactone 12.5 mg. If renal function declines, discontinue it. She is getting acetazolamide for high bicarb Would recommend continuous BiPAP support as tolerated to reduce chronic respiratory acidosis and compensatory metabolic alkalosis Hold lisinopril 2.5, Discontinue metolazone. Discontinue beta-elvis Continue aspirin 81 mg daily, atorvastatin 40 mg Monitor blood pressure, heart rate, telemetry, urine output. Continue anticoagulation with Coumadin, pharmacy dosing. INR 3.0. Goal INR 2.5-3.5. Objective - Vital Signs Vital signs: Vital Signs Temp 99.0 F 12/21/23 08:00 Pulse 70 12/21/23 11:59 Resp 19 12/21/23 11:00 BP 91/52 12/21/23 11:00 Pulse Ox 96 12/21/23 11:00 FiO2 40 12/21/23 08:01 Intake & Output 12/20/23 12/21/23 12/21/23 18:59 06:59 18:59 Intake Total 1234.584 509.05 362.137 Output Total 2940 3300 995 Balance -1705.416 -2790.95 -632.863 Weight 154 kg 151.8 kg Intake: IV 330 240 100 0.9 230 240 100 Potassium Chloride 10 meq 100 In Water For Injection 1 100ml.bag @ 100 mls/hr IVPB Q1HR [facility] Rx#: [id number] Intake, IV Titration 904.584 219.05 262.137 Amount Norepinephrine 4 mg In 404.584 219.05 262.137 Sodium Chloride 0.9% 250 ml @ 0.03 MCG/KG/MIN 17. 431 mls/hr IV .[id number] [facility] Rx#:[id number] Vancomycin 2,250 mg In 500 Sodium Chloride 0.9% 500 ml 500 ml @ 167 mls/hr IVPB Q24HR [facility] Rx#: [id number] Oral 50 Output: Urine 2940 3300 995 Other: Voiding Method Indwelling Catheter Indwelling Catheter Indwelling Catheter # Bowel Movements 0 - Labs CBC & Chem 7: 12/21/23 03:16 12/21/23 10:45 Labs: Abnormal Lab Results - Last 24 Hours (Table) 12/21/23 12/21/23 12/21/23 Range/Units 03:16 03:16 03:16 RBC 3.52 L (3.80-5.40) m/uL Hgb 10.8 L (11.4-16.0) gm/dL MCV 102.1 H (80.0-100.0) fL MCHC 30.1 L (31.0-37.0) g/dL PT 28.0 H (10.0-12.5) sec INR 2.8 H (<1.2) ABG pCO2 (35-45) mmHg ABG HCO3 (21-25) mmol/L ABG Total CO2 (19-24) mmol/L ABG O2 Saturation (94-97) % Hemoglobin (11.4-16.0) gm/dL Sodium 135 L (137-145) mmol/L Potassium 3.4 L (3.5-5.1) mmol/L Chloride 94 L (98-107) mmol/L Carbon Dioxide 40 H (22-30) mmol/L BUN 18 H (7-17) mg/dL Glucose 145 H (74-99) mg/dL 12/21/23 12/21/23 Range/Units 05:05 10:45 RBC (3.80-5.40) m/uL Hgb (11.4-16.0) gm/dL MCV (80.0-100.0) fL MCHC (31.0-37.0) g/dL PT (10.0-12.5) sec INR (<1.2) ABG pCO2 58 H (35-45) mmHg ABG HCO3 38 H (21-25) mmol/L ABG Total CO2 40 H (19-24) mmol/L ABG O2 Saturation 98.5 H (94-97) % Hemoglobin 11.3 L (11.4-16.0) gm/dL Sodium 136 L (137-145) mmol/L Potassium (3.5-5.1) mmol/L Chloride 92 L (98-107) mmol/L Carbon Dioxide 37 H (22-30) mmol/L BUN (7-17) mg/dL Glucose (74-99) mg/dL Microbiology - Last 24 Hours (Table) 12/19/23 13:40 Gram Stain - Final Wrist - Right Wound Culture - Final Methicillin resist S. aureus 12/17/23 13:07 Blood Culture - Preliminary Blood
--- NOTE | 2023-12-21 12:45 | P.PN ---
Subjective Progress Note Date: 12/21/23 73-year-old female originally seen by Dr. Carroll in the emergency room, and then followed by Dr. Cárdenas afterwards. This is a 73-year-old female who presented with shortness of breath and difficulty breathing. The patient was seen in the emergency department, on December 12. The patient was very confused when she first came in, and was a very poor historian. The patient was initially placed on BiPAP, with settings of 16/6, and 40%. She remains on BiPAP. Patient has a history of atrial fibrillation, coronary disease, CVA, hyperlipidemia, pneumonia, and seizure disorder. The patient apparently also has a previous history of either mitral valve replacement or repair. She is a lifelong non-smoker. Laboratory data includes a white count 6.7, hemoglobin 10.5, hematocrit 34.5, and a platelet count of 103,000. PT was 17.3 with an INR of 1.7. Venous blood gas showed a pCO2 of 98, and a pH of 7.3. Sodium 136, potassium 4.3, chlorides 91, CO2 41, BUN and creatinine were 16 and 0.66. Glucose 159. Calcium 8.2. Troponin was 0.012. N-terminal proBNP was 1760. Chest x-ray showed sternal wires consistent with previous open heart surgery. Cardiac silhouette is enlarged. Costophrenic angles are blunted. This x-ray in my opinion is consistent with pulmonary vascular congestion. EKG shows evidence of atrial fibrillation. Progress note dated December 14, 2023. 73-year-old female seen in room 355. She was initially evaluated in the emergency department. She came in with confusion, and she was a very poor historian. The patient was placed on BiPAP, initially with settings of 16/6, 40%. She has a history of atrial fibrillation, coronary disease, CVA, hyperlipidemia, pneumonia, and seizure disorder. Currently, the patient is on 3 L of oxygen. The BiPAP is in the room. Is not clear to me whether or not she used it last night. She does continue on IV heparin. Current labs include a white count 5.6, hemoglobin 9.6, hematocrit 30.7, and a platelet count of 146,000. PT was 22.7. INR 2.3. PTT was 67.4. Sodium 136, potassium 3.7, chloride 88, CO2 46, BUN 18, creatinine 0.66. Troponins were 0.015, and 0.015. Progress note dated December 15, 2023. 73-year-old female seen again in room 355. The patient is resting comfortably in bed. She denies any complaints. Currently, she is on 2 L of oxygen. She is getting IV heparin. She did use BiPAP last night, with settings of 16/6, and 40%. The patient continues in atrial fibrillation. Current labs include a PTT of 63.1. Sodium 136, potassium 3, chloride 89, CO2 42, BUN 18, creatinine 0.69. Calcium is 8.2. Progress note dated December 16, 2023. 73-year-old female again seen in room 355. The patient is not receiving any IV fluids. The patient is on O2 at 2 L. She did use her BiPAP device last night, with settings of 16/6, and 40%. The patient feels like she is improved. She denies any worsening or more severe shortness of breath, cough, wheezing, chest tightness, or phlegm production. She also denies any chest pain or pressure. Current labs include a PT of 23.5 and an INR of 2.4. Sodium 137, potassium 3.3, chlorides 91, CO2 42, BUN 14, creatinine 0.73. Urine is negative. 12/17/2023, patient is being seen for a follow-up. This patient is awake and alert. She is currently off BiPAP. Overnight, she was on a BiPAP pressure of 16 over 6 cm of water and the patient is currently on 3 L of oxygen by nasal cannula. She is a retirement resident and she is quite debilitated from the previous CVA and she does have left-sided hemiplegia and chronic lower extremity edema. She was taken off the IV Lasix and the patient is currently on Bumex 1 mg p.o. twice a day. The patient also had a echocardiogram that showed a ejection fraction of 40%. Severe RV dilatation with mild pulmonary hyper tension. The patient also has a mechanical valve/mitral and the patient remains on long-term anticoagulant with warfarin. INR is therapeutic at this point in time. Along with Bumex, the patient is on Zaroxolyn 5 mg p.o. on a daily basis. Rest of the medications remain unchanged. No significant shortness of breath. Repeat CAT scan of the brain done on 12/16/2023 showed stable lacunar infarcts involving the basal ganglia. No acute intracranial abnormalities noted. Other comorbidities include chronic atrial fibrillation, coronary artery disease, hyperlipidemia and seizure disorders. 12/18/2023, the patient is being seen for a follow-up. This morning, the patient is on 2 L of oxygen by nasal cannula. Overnight, the patient was on a BiPAP pressure of 16 over 4 cm of water with FiO2 of 40%. This fluid balance is -3 L over the past 24 hours and the patient continues to have edema lower extremities bilaterally. Remains on a combination of Bumex 1 mg p.o. twice daily, Aldactone 50 mg p.o. daily Zaroxolyn 5 mg p.o. daily. She was given Seroquel overnight and the patient feels to be slightly more sleepy than usual. Otherwise, no other significant events overnight. White cell count of 5.9 with a hemoglobin of 10.2 and a platelet count of 131. BUN is 18 with a creatinine 0.7 and sodium levels at 137 and the potassium level is 3.7. 12/19/2023, the patient got transferred to the intensive care and that the patient became lethargic and hypotensive. It was noted that the systolic blood pressure was running as low as 60 on the medical floor. Based on that, the patient got transferred to the intensive care unit. Diuretics were placed on hold and the patient was given a liter of bolus of IV fluids. Most recent blood pressure currently is 90/76. Urine output is still adequate. The patient was also placed on a BiPAP. This morning, she is on a BiPAP of 16 over 6 cm of water with an FiO2 of 50%. Blood gas was done in the ICU that showed a pH of 7.33 with a pCO2 of 80 and pO2 of 113. This was done while the patient was on a BiPAP. The white cell count is 7.7, it was 10.3 and a platelet count of 168. UA is negative. The rest of the electrolytes show a serum bicarb of 41, sodium levels of 135, potassium is at 3.7. BUN is at 21 with a creatinine of 1.01. Arousable, communicating. Denies having any chest pain. She has a area of skin ulcer that is developed at the level of her wrist with some minimal purulent drainage and erythema around it and the patient is currently on IV cefazolin. On 12/20/2023, the patient is awake. Overnight, the patient stayed on the BiPAP at a pressure of 16/6 with an FiO2 of 40% and currently the patient is on 4 L of oxygen by nasal cannula. The patient received IV fluids and the patient is currently at KVO. Norepinephrine was started at a dose of 0.06 mcg/kg/min. Urine output is adequate. Fluid balance over the past 24 hours +180 cc. No signs of any CO2 narcosis. The patient was given 2 doses of Diamox yesterday 5 500 mg each and the serum bicarb today is at 40. Rest of the diuretics have been discontinued. The sodium is at 138, potassium is at 3.9, chloride is 92, WBC count is at 8 with a hemoglobin 10.7 and a platelet count of 248. Chest x- ray shows cardiomegaly and there is no other acute abnormalities noted. Profoundly weak. Awake and oriented and following commands and answering questions appropriately. She remains on IV cefazolin and the cellulitis in the right wrist wound is showing some improvement without any active drainage. Appropriate dressing has been also applied. 12/21/2023 Patient is awake and alert. Overnight stayed on BiPAP at a pressure of 16/6 oh with an FiO2 of 40%. Patient diuresed well on IV Lasix 40 mg every 12 hours, urine output adequate at 6.2 L. 100 cc/hr. Negative fluid balance of -4.5 L. Levo weaned down to 0.02. Patient afebrile. Was given another 2 doses of Diamox 500 mg each yesterday. Serum bicarb today is at 38. ABG on bipap 40 - 7.44/58.1/102. Patient currently on IV vancomycin for right wrist cellulitis. Blood culture pending - 1st one showed no growth after 72 hr. Wound culture showing presumptive MRSA. The sodium is at 135, potassium is at 3.4, chloride is 94, WBC count is at 7.5 with a hemoglobin 10.8 and a platelet count of 212. Profoundly weak. Awake and oriented and following commands and answering questions appropriately. Switched to IV vancomycin by ID and the cellulitis in the right wrist wound is showing some improvement without any active drainage. Appropriate dressing has been also applied. Objective - Vital Signs Vital signs: Vital Signs Temp 98.5 F 12/21/23 05:00 Pulse 84 12/21/23 06:00 Resp 21 12/21/23 06:00 BP 94/61 12/21/23 06:00 Pulse Ox 97 12/21/23 06:00 FiO2 40 12/21/23 04:00 Intake & Output 12/20/23 12/20/23 12/21/23 06:59 18:59 06:59 Intake Total 1136.453 3762.584 509.05 Output Total 1500 2940 3300 Balance -388.049 -1705.416 -2790.95 Weight 154 kg 154 kg 151.8 kg Intake: IV 550 330 240 0.9 220 230 240 Invasive Line 5 30 Potassium Chloride 10 meq 200 100 In Water For Injection 1 100ml.bag @ 100 mls/hr IVPB Q1HR [facility] Rx#: [id number] ceFAZolin 2 gm In Sodium 100 Chloride 0.9% 50 ml @ 100 mls/hr IVPB Q8H [facility] Rx#: [id number] Intake, IV Titration 561.951 904.584 219.05 Amount Norepinephrine 4 mg In 561.951 404.584 219.05 Sodium Chloride 0.9% 250 ml @ 0.03 MCG/KG/MIN 17. 431 mls/hr IV .[id number] [facility] Rx#:[id number] Vancomycin 2,250 mg In 500 Sodium Chloride 0.9% 500 ml 500 ml @ 167 mls/hr IVPB Q24HR [facility] Rx#: [id number] Oral 50 Output: Urine 1500 2940 3300 Other: Voiding Method Indwelling Catheter Indwelling Catheter Indwelling Catheter # Bowel Movements 0 - Labs CBC & Chem 7: 12/21/23 03:16 12/21/23 10:45 Labs: Abnormal Lab Results - Last 24 Hours (Table) 12/21/23 12/21/23 12/21/23 Range/Units 03:16 03:16 03:16 RBC 3.52 L (3.80-5.40) m/uL Hgb 10.8 L (11.4-16.0) gm/dL MCV 102.1 H (80.0-100.0) fL MCHC 30.1 L (31.0-37.0) g/dL PT 28.0 H (10.0-12.5) sec INR 2.8 H (<1.2) ABG pCO2 (35-45) mmHg ABG HCO3 (21-25) mmol/L ABG Total CO2 (19-24) mmol/L ABG O2 Saturation (94-97) % Hemoglobin (11.4-16.0) gm/dL Sodium 135 L (137-145) mmol/L Potassium 3.4 L (3.5-5.1) mmol/L Chloride 94 L (98-107) mmol/L Carbon Dioxide 40 H (22-30) mmol/L BUN 18 H (7-17) mg/dL Glucose 145 H (74-99) mg/dL 12/21/23 Range/Units 05:05 RBC (3.80-5.40) m/uL Hgb (11.4-16.0) gm/dL MCV (80.0-100.0) fL MCHC (31.0-37.0) g/dL PT (10.0-12.5) sec INR (<1.2) ABG pCO2 58 H (35-45) mmHg ABG HCO3 38 H (21-25) mmol/L ABG Total CO2 40 H (19-24) mmol/L ABG O2 Saturation 98.5 H (94-97) % Hemoglobin 11.3 L (11.4-16.0) gm/dL Sodium (137-145) mmol/L Potassium (3.5-5.1) mmol/L Chloride (98-107) mmol/L Carbon Dioxide (22-30) mmol/L BUN (7-17) mg/dL Glucose (74-99) mg/dL Microbiology - Last 24 Hours (Table) 12/17/23 13:07 Blood Culture - Preliminary Blood 12/19/23 13:40 Gram Stain - Preliminary Wrist - Right Wound Culture - Preliminary Presumptive MRSA Assessment and Plan Plan: Assessment: Acute on chronic hypoxemic and hypercapnic respiratory failure, likely multifactorial, in part related to congestive heart failure, as well as possible sleep apnea syndrome/Pickwickian syndrome. The patient treated with a BiPAP at a pressure of 16 over 6 cm of water. Blood gas was noted. No significant respiratory distress. Chest x-ray shows massive cardiomegaly, right ventricular enlargement and pulm vessel congestion. This morning, the patient was taken off the BiPAP and the patient is currently on oxygen at 4 L. Diamox was given to counteract the significant metabolic alkalosis. Acute hypotension, probably related to aggressive diuresis and fluid shift, could be hypovolemic in nature. The patient was given a liter of IV fluids and the patient's blood pressure is improved. Subsequently, the patient was started on low-dose pressors and the patient is currently on norepinephrine at 0.06 mcg/kg/min to be further weaned today. Systolic congestive heart failure, with an ejection fraction of 40 to 45%. Hypercarbic encephalopathy, treated with diuretics, and BiPAP therapy and the patient's mental status is adequate for now. The patient is currently on nasal cannula at 4 L History of atrial fibrillation with a relatively controlled ventricular response rate, rate is under better control and the patient is on anticoagulation with warfarin History of mitral valve replacement. The patient has a mechanical valve and the patient has been maintained on long-term anticoagulation with warfarin and repeat INR is therapeutic History of hyperlipidemia. History of CVA. Repeat CAT scan of the brain on 12/16/2023 shows stable findings and the patient has chronic left sided hemiplegia History of tricuspid regurgitation. History of seizure disorder. Chronic lower extremity edema Plan: Continue BiPAP for now on 2L nasal canula during the day Give the patient Diamox 500 mg x 2 doses IV, 2 additional dose to be given place on Lasix 40 mg IV daily repeat ABG tomorrow morning target serum bicarb mid 30s, check BMP tomorrow Continue anticoagulation with warfarin with a therapeutic PT/INR Continue pressors and wean off the norepinephrine Overall respiratory status is stable and the patient has no signs of any CO2 narcosis, will Use BiPAP overnight Patient is a retirement resident and the patient is quite debilitated Will continue to follow this patient in the intensive care unit. Evaluation was done more than 30 minutes. This is a critical care evaluation.
--- NOTE | 2023-12-21 12:51 | P.PN ---
Subjective Progress Note Date: 12/21/23 Principal diagnosis: Reason for follow-up is right wrist IV site cellulitis/MRSA Patient is a 73-year-old female with a past medical history significant for atrial fibrillation coronary disease CVA TIA hyperlipidemia pneumonia seizure disorder patient initially presented to hospital for evaluation of increasing shortness of breath subsequently transferred to ICU because of hypotension also noted to have right wrist area wound with some purulent drainage concerning for previous IV site cellulitis and infection. On today's evaluation that is 12/21/2023, Patient is afebrile patient is currently on 2 L current oxygen and denies having any worsening shortness of rolf ath, the patient denies any chest pain or cough, the patient denies any nausea vomiting did not have any abdominal pain and no diarrhea pain to the right wrist is currently controlled. Patient white count is 7.5 creatinine 0.84 blood cultures pending local culture with MRSA Objective - Vital Signs Vital signs: Vital Signs Temp 99.0 F 12/21/23 08:00 Pulse 70 12/21/23 11:59 Resp 19 12/21/23 11:00 BP 91/52 12/21/23 11:00 Pulse Ox 96 12/21/23 11:00 FiO2 40 12/21/23 08:01 Intake & Output 12/20/23 12/21/23 12/21/23 18:59 06:59 18:59 Intake Total 1234.584 509.05 362.137 Output Total 2940 3300 995 Balance -1705.416 -2790.95 -632.863 Weight 154 kg 151.8 kg Intake: IV 330 240 100 0.9 230 240 100 Potassium Chloride 10 meq 100 In Water For Injection 1 100ml.bag @ 100 mls/hr IVPB Q1HR [facility] Rx#: [id number] Intake, IV Titration 904.584 219.05 262.137 Amount Norepinephrine 4 mg In 404.584 219.05 262.137 Sodium Chloride 0.9% 250 ml @ 0.03 MCG/KG/MIN 17. 431 mls/hr IV .[id number] [facility] Rx#:[id number] Vancomycin 2,250 mg In 500 Sodium Chloride 0.9% 500 ml 500 ml @ 167 mls/hr IVPB Q24HR [facility] Rx#: [id number] Oral 50 Output: Urine 2940 3300 995 Other: Voiding Method Indwelling Catheter Indwelling Catheter Indwelling Catheter # Bowel Movements 0 - Exam GENERAL DESCRIPTION: An elderly female lying in bed in no distress RESPIRATORY SYSTEM: Unlabored breathing , decreased breath sounds at bases HEART: S1 S2 regular rate and rhythm , ABDOMEN: Soft , no tenderness EXTREMITIES: Right wrist wound is currently dressed no drainage - Labs CBC & Chem 7: 12/21/23 03:16 12/21/23 10:45 Labs: Abnormal Lab Results - Last 24 Hours (Table) 12/21/23 12/21/23 12/21/23 Range/Units 03:16 03:16 03:16 RBC 3.52 L (3.80-5.40) m/uL Hgb 10.8 L (11.4-16.0) gm/dL MCV 102.1 H (80.0-100.0) fL MCHC 30.1 L (31.0-37.0) g/dL PT 28.0 H (10.0-12.5) sec INR 2.8 H (<1.2) ABG pCO2 (35-45) mmHg ABG HCO3 (21-25) mmol/L ABG Total CO2 (19-24) mmol/L ABG O2 Saturation (94-97) % Hemoglobin (11.4-16.0) gm/dL Sodium 135 L (137-145) mmol/L Potassium 3.4 L (3.5-5.1) mmol/L Chloride 94 L (98-107) mmol/L Carbon Dioxide 40 H (22-30) mmol/L BUN 18 H (7-17) mg/dL Glucose 145 H (74-99) mg/dL 12/21/23 Range/Units 05:05 RBC (3.80-5.40) m/uL Hgb (11.4-16.0) gm/dL MCV (80.0-100.0) fL MCHC (31.0-37.0) g/dL PT (10.0-12.5) sec INR (<1.2) ABG pCO2 58 H (35-45) mmHg ABG HCO3 38 H (21-25) mmol/L ABG Total CO2 40 H (19-24) mmol/L ABG O2 Saturation 98.5 H (94-97) % Hemoglobin 11.3 L (11.4-16.0) gm/dL Sodium (137-145) mmol/L Potassium (3.5-5.1) mmol/L Chloride (98-107) mmol/L Carbon Dioxide (22-30) mmol/L BUN (7-17) mg/dL Glucose (74-99) mg/dL Microbiology - Last 24 Hours (Table) 12/19/23 13:40 Gram Stain - Final Wrist - Right Wound Culture - Final Methicillin resist S. aureus 12/17/23 13:07 Blood Culture - Preliminary Blood Assessment and Plan (1) Cellulitis of right wrist Current Visit: Yes Status: Acute Code(s): L03.113 - CELLULITIS OF RIGHT UPPER LIMB SNOMED Code(s): 00593618499151202 (2) Phlebitis Current Visit: Yes Status: Acute Code(s): I80.9 - PHLEBITIS AND THROMBOPHLEBITIS OF UNSPECIFIED SITE SNOMED Code(s): 50473732 (3) MRSA (methicillin resistant Staphylococcus aureus) infection Current Visit: Yes Status: Acute Code(s): A49.02 - METHICILLIN RESIS STAPH INFECTION, UNSP SITE SNOMED Code(s): 275282366 Plan: 1patient with right wrist cellulitis at site of previous IV now with evidence of some purulent drainage and surrounding redness likely from gram-positive skin camille 2-blood and local culture has been requested, blood culture pending local cultur e with MRSA blood cultures pending 3-patient to continue with vancomycin pharmacy to dose and monitor clinical course closely Dictation was produced using [employer] dictation software. please excuse any grammatical, word or spelling errors. Time with Patient: Less than 30
--- NOTE | 2023-12-21 14:09 | P.PN ---
Subjective Progress Note Date: 12/21/23 73-year-old female originally seen by Dr. Carroll in the emergency room, and then followed by Dr. Cárdenas afterwards. This is a 73-year-old female who presented with shortness of breath and difficulty breathing. The patient was seen in the emergency department, on December 12. The patient was very confused when she first came in, and was a very poor historian. The patient was initially placed on BiPAP, with settings of 16/6, and 40%. She remains on BiPAP. Patient has a history of atrial fibrillation, coronary disease, CVA, hyperlipidemia, pneumonia, and seizure disorder. The patient apparently also has a previous history of either mitral valve replacement or repair. She is a lifelong non-smoker. Laboratory data includes a white count 6.7, hemoglobin 10.5, hematocrit 34.5, and a platelet count of 103,000. PT was 17.3 with an INR of 1.7. Venous blood gas showed a pCO2 of 98, and a pH of 7.3. Sodium 136, potassium 4.3, chlorides 91, CO2 41, BUN and creatinine were 16 and 0.66. Glucose 159. Calcium 8.2. Troponin was 0.012. N-terminal proBNP was 1760. Chest x-ray showed sternal wires consistent with previous open heart surgery. Cardiac silhouette is enlarged. Costophrenic angles are blunted. This x-ray in my opinion is consistent with pulmonary vascular congestion. EKG shows evidence of atrial fibrillation. Progress note dated December 14, 2023. 73-year-old female seen in room 355. She was initially evaluated in the emergency department. She came in with confusion, and she was a very poor historian. The patient was placed on BiPAP, initially with settings of 16/6, 40%. She has a history of atrial fibrillation, coronary disease, CVA, hyperlipidemia, pneumonia, and seizure disorder. Currently, the patient is on 3 L of oxygen. The BiPAP is in the room. Is not clear to me whether or not she used it last night. She does continue on IV heparin. Current labs include a white count 5.6, hemoglobin 9.6, hematocrit 30.7, and a platelet count of 146,000. PT was 22.7. INR 2.3. PTT was 67.4. Sodium 136, potassium 3.7, chloride 88, CO2 46, BUN 18, creatinine 0.66. Troponins were 0.015, and 0.015. Progress note dated December 15, 2023. 73-year-old female seen again in room 355. The patient is resting comfortably in bed. She denies any complaints. Currently, she is on 2 L of oxygen. She is getting IV heparin. She did use BiPAP last night, with settings of 16/6, and 40%. The patient continues in atrial fibrillation. Current labs include a PTT of 63.1. Sodium 136, potassium 3, chloride 89, CO2 42, BUN 18, creatinine 0.69. Calcium is 8.2. Progress note dated December 16, 2023. 73-year-old female again seen in room 355. The patient is not receiving any IV fluids. The patient is on O2 at 2 L. She did use her BiPAP device last night, with settings of 16/6, and 40%. The patient feels like she is improved. She denies any worsening or more severe shortness of breath, cough, wheezing, chest tightness, or phlegm production. She also denies any chest pain or pressure. Current labs include a PT of 23.5 and an INR of 2.4. Sodium 137, potassium 3.3, chlorides 91, CO2 42, BUN 14, creatinine 0.73. Urine is negative. 12/17/2023, patient is being seen for a follow-up. This patient is awake and alert. She is currently off BiPAP. Overnight, she was on a BiPAP pressure of 16 over 6 cm of water and the patient is currently on 3 L of oxygen by nasal cannula. She is a jail resident and she is quite debilitated from the previous CVA and she does have left-sided hemiplegia and chronic lower extremity edema. She was taken off the IV Lasix and the patient is currently on Bumex 1 mg p.o. twice a day. The patient also had a echocardiogram that showed a ejection fraction of 40%. Severe RV dilatation with mild pulmonary hype rtension. The patient also has a mechanical valve/mitral and the patient remains on long-term anticoagulant with warfarin. INR is therapeutic at this point in time. Along with Bumex, the patient is on Zaroxolyn 5 mg p.o. on a daily basis. Rest of the medications remain unchanged. No significant shortness of breath. Repeat CAT scan of the brain done on 12/16/2023 showed stable lacunar infarcts involving the basal ganglia. No acute intracranial abnormalities noted. Other comorbidities include chronic atrial fibrillation, coronary artery disease, hyperlipidemia and seizure disorders. 12/18/2023, the patient is being seen for a follow-up. This morning, the patient is on 2 L of oxygen by nasal cannula. Overnight, the patient was on a BiPAP pressure of 16 over 4 cm of water with FiO2 of 40%. This fluid balance is -3 L over the past 24 hours and the patient continues to have edema lower extremities bilaterally. Remains on a combination of Bumex 1 mg p.o. twice daily, Aldactone 50 mg p.o. daily Zaroxolyn 5 mg p.o. daily. She was given Seroquel overnight and the patient feels to be slightly more sleepy than usual. Otherwise, no other significant events overnight. White cell count of 5.9 with a hemoglobin of 10.2 and a platelet count of 131. BUN is 18 with a creatinine 0.7 and sodium levels at 137 and the potassium level is 3.7. 12/19/2023, the patient got transferred to the intensive care and that the patient became lethargic and hypotensive. It was noted that the systolic blood pressure was running as low as 60 on the medical floor. Based on that, the patient got transferred to the intensive care unit. Diuretics were placed on hold and the patient was given a liter of bolus of IV fluids. Most recent blood pressure currently is 90/76. Urine output is still adequate. The patient was also placed on a BiPAP. This morning, she is on a BiPAP of 16 over 6 cm of water with an FiO2 of 50%. Blood gas was done in the ICU that showed a pH of 7.33 with a pCO2 of 80 and pO2 of 113. This was done while the patient was on a BiPAP. The white cell count is 7.7, it was 10.3 and a platelet count of 168. UA is negative. The rest of the electrolytes show a serum bicarb of 41, sodium levels of 135, potassium is at 3.7. BUN is at 21 with a creatinine of 1.01. Arousable, communicating. Denies having any chest pain. She has a area of skin ulcer that is developed at the level of her wrist with some minimal purulent drainage and erythema around it and the patient is currently on IV cefazolin. On 12/20/2023, the patient is awake. Overnight, the patient stayed on the BiPAP at a pressure of 16/6 with an FiO2 of 40% and currently the patient is on 4 L of oxygen by nasal cannula. The patient received IV fluids and the patient is currently at KVO. Norepinephrine was started at a dose of 0.06 mcg/kg/min. Urine output is adequate. Fluid balance over the past 24 hours +180 cc. No signs of any CO2 narcosis. The patient was given 2 doses of Diamox yesterday 5 500 mg each and the serum bicarb today is at 40. Rest of the diuretics have been discontinued. The sodium is at 138, potassium is at 3.9, chloride is 92, WBC count is at 8 with a hemoglobin 10.7 and a platelet count of 248. Chest x- ray shows cardiomegaly and there is no other acute abnormalities noted. Profoundly weak. Awake and oriented and following commands and answering questions appropriately. She remains on IV cefazolin and the cellulitis in the right wrist wound is showing some improvement without any active drainage. Appropriate dressing has been also applied. On 12/21/2023, the patient is awake and alert and she was taken off the BiPAP and she is currently on 3 L of oxygen by nasal cannula. A follow-up blood gas was done today and the blood gas showed a pH of 7.42 with a pCO2 of 58 and pO2 of 102. As such, there is improvement in acid-base status. Lasix was restarted by cardiology and the patient has been receiving Lasix 40 mg IV every 12 hours with excellent urine output. Fluid balance is -4.4 L over the past 24 hours. Continues to be on low-dose pressors and the patient is currently on norepinephrine at 0.02 mcg/kg/min. Overnight, the patient was on a bilevel pressure of 16/6 with an FiO2 40%. Noted the patient was receiving Diamox. Serum bicarb is down to 37 with a chloride of 92 and a sodium is at 136. The white cell count is at 7.5 with hemoglobin 10.8 and a platelet count of 212. Remains on vancomycin. Remains on anticoagulation with warfarin. INR is therapeutic at 2.8. Objective - Vital Signs Vital signs: Vital Signs Temp 98.5 F 12/21/23 05:00 Pulse 80 11/08/24 08:21 Resp 15 12/21/23 07:00 BP 97/45 12/21/23 07:00 Pulse Ox 97 12/21/23 07:00 FiO2 40 12/21/23 08:01 Intake & Output 12/20/23 12/21/23 12/21/23 18:59 06:59 18:59 Intake Total 1234.584 509.05 282.137 Output Total 2940 3300 100 Balance -1705.416 -2790.95 182.137 Weight 154 kg 151.8 kg Intake: IV 330 240 20 0.9 230 240 20 Potassium Chloride 10 meq 100 In Water For Injection 1 100ml.bag @ 100 mls/hr IVPB Q1HR [facility] Rx#: [id number] Intake, IV Titration 904.584 219.05 262.137 Amount Norepinephrine 4 mg In 404.584 219.05 262.137 Sodium Chloride 0.9% 250 ml @ 0.03 MCG/KG/MIN 17. 431 mls/hr IV .[id number] [facility] Rx#:[id number] Vancomycin 2,250 mg In 500 Sodium Chloride 0.9% 500 ml 500 ml @ 167 mls/hr IVPB Q24HR [facility] Rx#: [id number] Oral 50 Output: Urine 2940 3300 100 Other: Voiding Method Indwelling Catheter Indwelling Catheter # Bowel Movements 0 - Exam No acute distress, much more awake and alert. Currently on BiPAP at a pressure of 16 over 6 cm of water with FiO2 of 40% overnight and the patient was switched to 3 L of oxygen by nasal cannula while awake during the day. The patient is morbidly obese with a BMI of 54.1 HEENT examination is grossly unremarkable. Neck supple. Full range of motion. No adenopathy thyromegaly or neck vein distention. Cardiovascular examination reveals an irregular rhythm and rate. S1-S2 normal. No S3 or S4. No discernible murmur noted. Heart sounds are distant. Lungs reveal diminished bilateral breath sounds. Scattered rhonchi. Scattered crackles are also noted. No wheezes. Breath sounds are equal. Abdomen obese, but soft. No masses or tenderness. Extremities are intact. No cyanosis or clubbing. Lower extremity edema noted. The patient has chronic contractures in the lower extremity with chronic lower extremity edema. There is also a wound with purulent base and some surrounding erythema on the right side. Skin is without rash or lesion. Neurologic examination reveals left-sided hemiplegia related to her previous CVA. - Labs CBC & Chem 7: 12/21/23 03:16 12/21/23 10:45 Labs: Abnormal Lab Results - Last 24 Hours (Table) 12/21/23 12/21/23 12/21/23 Range/Units 03:16 03:16 03:16 RBC 3.52 L (3.80-5.40) m/uL Hgb 10.8 L (11.4-16.0) gm/dL MCV 102.1 H (80.0-100.0) fL MCHC 30.1 L (31.0-37.0) g/dL PT 28.0 H (10.0-12.5) sec INR 2.8 H (<1.2) ABG pCO2 (35-45) mmHg ABG HCO3 (21-25) mmol/L ABG Total CO2 (19-24) mmol/L ABG O2 Saturation (94-97) % Hemoglobin (11.4-16.0) gm/dL Sodium 135 L (137-145) mmol/L Potassium 3.4 L (3.5-5.1) mmol/L Chloride 94 L (98-107) mmol/L Carbon Dioxide 40 H (22-30) mmol/L BUN 18 H (7-17) mg/dL Glucose 145 H (74-99) mg/dL 12/21/23 Range/Units 05:05 RBC (3.80-5.40) m/uL Hgb (11.4-16.0) gm/dL MCV (80.0-100.0) fL MCHC (31.0-37.0) g/dL PT (10.0-12.5) sec INR (<1.2) ABG pCO2 58 H (35-45) mmHg ABG HCO3 38 H (21-25) mmol/L ABG Total CO2 40 H (19-24) mmol/L ABG O2 Saturation 98.5 H (94-97) % Hemoglobin 11.3 L (11.4-16.0) gm/dL Sodium (137-145) mmol/L Potassium (3.5-5.1) mmol/L Chloride (98-107) mmol/L Carbon Dioxide (22-30) mmol/L BUN (7-17) mg/dL Glucose (74-99) mg/dL Microbiology - Last 24 Hours (Table) 12/19/23 13:40 Gram Stain - Final Wrist - Right Wound Culture - Final Methicillin resist S. aureus 12/17/23 13:07 Blood Culture - Preliminary Blood Assessment and Plan Plan: Acute on chronic hypoxemic and hypercapnic respiratory failure, likely multifactorial, in part related to congestive heart failure, as well as possible sleep apnea syndrome/Pickwickian syndrome. The patient treated with a BiPAP and currently the patient is on liters of oxygen nasal cannula, follow-up blood gas showed improvement in acid-base status. Chest x-ray showing cardiomegaly. Acute hypotension, probably related to aggressive diuresis and fluid shift, could be hypovolemic in nature. The patient was given a liter of IV fluids and the patient's blood pressure is improved. Subsequently, the patient was started on low-dose pressors and the patient is currently on norepinephrine at 0.03 mcg/kg/min to be further weaned today. The patient was restarted on diuretics and the patient has been negative fluid balance of 4.4 L over the past 24 hours. Systolic congestive heart failure, with an ejection fraction of 40 to 45%. Hypercarbic encephalopathy, treated with diuretics, and BiPAP therapy and the patient's mental status is adequate for now. The patient is currently on nasal cannula at 3 L and the patient is extubated status is improved History of atrial fibrillation with a relatively controlled ventricular response rate, rate is under better control and the patient is on anticoagulation with warfarin History of mitral valve replacement. The patient has a mechanical valve and the patient has been maintained on long-term anticoagulation with warfarin and re peat INR is therapeutic History of hyperlipidemia. History of CVA. Repeat CAT scan of the brain on 12/16/2023 shows stable findings and the patient has chronic left sided hemiplegia History of tricuspid regurgitation. History of seizure disorder. Chronic lower extremity edema Right wrist wound with MRSA positive cultures, currently on vancomycin Plan: Continue BiPAP for now overnight and during the day the patient will be maintained on 3 L of oxygen nasal cannula Give the patient Diamox 500 mg x 2 doses IV, 2 additional dose to be given Change Lasix to 40 mg IV every 24 hours Continue anticoagulation with warfarin with a therapeutic PT/INR Continue pressors and wean off the norepinephrine Repeat another gas in the morning IV vancomycin Patient is a jail resident and the patient is quite debilitated Will continue to follow this patient in the intensive care unit. Evaluation was done more than 30 minutes. This is a critical care evaluation. Time with Patient: Greater than 30
--- NOTE | 2023-12-21 14:29 | P.PN ---
Subjective Progress Note Date: 12/21/23 73-year-old female was sent in because of decreased level of consciousness with concerns of aspiration. Patient was also short of breath patient is found to be in hypercapnic respiratory failure with pH of 7.3 and pCO2 of 90 and pO2 of around 70. Patient does have history of obstructive sleep apnea morbidly obese female uses CPAP machine at nighttime. Patient does have multiple other medical problems including congestive heart failure with a EF of around 40 to 45% chest x-ray showing some pulmonary edema and BNP of 1700. Patient does not have any fever chills presently on BiPAP at this time. Patient is on Bumex 2 mg twice a day as an outpatient. Patient does have mild pedal edema on exam. Patient does use oxygen at baseline. Patient is mostly bedbound bilateral does have bilateral foot drop has history of cerebrovascular accident as well in the past 12/21/2023 --the patient is seen and evaluated with nursing staff at bedside; patient taken off the BiPAP and she is currently on 3 L of oxygen by nasal cannula. -- blood gas showed a pH of 7.42 with a pCO2 of 58 and pO2 of 102. As such, there is improvement in acid-base status. - Lasix was restarted by cardiology and the patient has been receiving Lasix 40 mg IV every 12 hours with excellent urine output. Continues to be on low-dose pressors and the patient is currently on norepinephrine at 0.02 mcg/kg/min. -- Serum bicarb is down to 37 with a chloride of 92 and a sodium is at 136. The white cell count is at 7.5 with hemoglobin 10.8 and a platelet count of 212. Remains on vancomycin. Remains on anticoagulation with warfarin. INR is therapeutic at 2.8. Objective - Vital Signs Vital signs: Vital Signs Temp 98.4 F 12/21/23 12:45 Pulse 78 12/21/23 12:45 Resp 18 12/21/23 12:45 BP 88/44 12/21/23 12:45 Pulse Ox 98 12/21/23 12:45 FiO2 40 12/21/23 08:01 Intake & Output 12/20/23 12/21/23 12/21/23 18:59 06:59 18:59 Intake Total 1234.584 509.05 416.806 Output Total 2940 3300 1195 Balance -1705.416 -2790.95 -778.194 Weight 154 kg 151.8 kg Intake: IV 330 240 120 0.9 230 240 120 Potassium Chloride 10 meq 100 In Water For Injection 1 100ml.bag @ 100 mls/hr IVPB Q1HR [facility] Rx#: [id number] Intake, IV Titration 904.584 219.05 296.806 Amount Norepinephrine 4 mg In 404.584 219.05 296.806 Sodium Chloride 0.9% 250 ml @ 0.03 MCG/KG/MIN 17. 431 mls/hr IV .[id number] [facility] Rx#:[id number] Vancomycin 2,250 mg In 500 Sodium Chloride 0.9% 500 ml 500 ml @ 167 mls/hr IVPB Q24HR [facility] Rx#: [id number] Oral 50 Output: Urine 2940 3300 1195 Other: Voiding Method Indwelling Catheter Indwelling Catheter Indwelling Catheter # Bowel Movements 0 - Exam GENERAL: Morbidly obese drowsy oriented x 3, patient is on nasal cannula. BiPAP HEENT: Pupils are round and equally reacting to light. EOMI. No scleral icterus. No conjunctival pallor. Normocephalic, atraumatic. No pharyngeal erythema. No thyromegaly. CARDIOVASCULAR: S1 and S2 present. No murmurs, rubs, or gallops. PULMONARY: Good air entry with mild expiratory wheezing on exam ABDOMEN: Soft, nontender, nondistended, normoactive bowel sounds. No palpable organomegaly. MUSCULOSKELETAL: No joint swelling or deformity. EXTREMITIES: No cyanosis, clubbing, or my lower EXTR bilateral pedal edema NEUROLOGICAL: Gross neurological examination did not reveal any focal deficits. Has old left arm contractures and left foot drop. SKIN: No rashes. Right wrist open wound with purulent drainage and surrounding cellulitis - Labs CBC & Chem 7: 12/21/23 03:16 12/21/23 10:45 Labs: Abnormal Lab Results - Last 24 Hours (Table) 12/21/23 12/21/23 12/21/23 Range/Units 03:16 03:16 03:16 RBC 3.52 L (3.80-5.40) m/uL Hgb 10.8 L (11.4-16.0) gm/dL MCV 102.1 H (80.0-100.0) fL MCHC 30.1 L (31.0-37.0) g/dL PT 28.0 H (10.0-12.5) sec INR 2.8 H (<1.2) ABG pCO2 (35-45) mmHg ABG HCO3 (21-25) mmol/L ABG Total CO2 (19-24) mmol/L ABG O2 Saturation (94-97) % Hemoglobin (11.4-16.0) gm/dL Sodium 135 L (137-145) mmol/L Potassium 3.4 L (3.5-5.1) mmol/L Chloride 94 L (98-107) mmol/L Carbon Dioxide 40 H (22-30) mmol/L BUN 18 H (7-17) mg/dL Glucose 145 H (74-99) mg/dL 12/21/23 12/21/23 Range/Units 05:05 10:45 RBC (3.80-5.40) m/uL Hgb (11.4-16.0) gm/dL MCV (80.0-100.0) fL MCHC (31.0-37.0) g/dL PT (10.0-12.5) sec INR (<1.2) ABG pCO2 58 H (35-45) mmHg ABG HCO3 38 H (21-25) mmol/L ABG Total CO2 40 H (19-24) mmol/L ABG O2 Saturation 98.5 H (94-97) % Hemoglobin 11.3 L (11.4-16.0) gm/dL Sodium 136 L (137-145) mmol/L Potassium (3.5-5.1) mmol/L Chloride 92 L (98-107) mmol/L Carbon Dioxide 37 H (22-30) mmol/L BUN (7-17) mg/dL Glucose (74-99) mg/dL Microbiology - Last 24 Hours (Table) 12/19/23 13:40 Anaerobic Culture - Preliminary Wrist - Right 12/19/23 13:40 Gram Stain - Final Wrist - Right Wound Culture - Final Methicillin resist S. aureus 12/17/23 13:07 Blood Culture - Preliminary Blood Assessment and Plan Assessment: -Acute hypoxic and hypercapnic respiratory failure on chronic hypercapnic respiratory failure and is is probably because of obesity sleep apnea and mild bronchitis may have contributed to CO2 retention Batient is on BiPAP at HS -Acute hypoxic respiratory failure secondary to congestive heart failure chronic systolic function EF of around 40 to 45. -Pulmonary hypertension -Hypovolemic shock currently on levophed and in the ICU. 2L fluid bolus given. BPs better today. -Hypokalemia from diuresis improved. -Altered mental status secondary to acute metabolic encephalopathy and elevated CO2 levels. -Respiratory acidosis secondary to CO2 retention -Right wrist cellulitis and purulent wound from IV site with cultures showing presumptive MRSA. Now on IV vancomycin and ID consultation. 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 -History of CVA in the past -Seizure disorder for which patient is on Keppra which will be resumed -Hyperlipidemia -Obesity and sleep apnea -Chronic medical debility -Foot drop -Peripheral neuropathy for which patient is on gabapentin which will be resumed DVT prophylaxis: Warfarin GI prophylaxis Full Code Plan Keppra has been increased by neurology Patient has received 2L fluid bolus and started on levophed Will need to hold the bumex, metolozone Aldactone decreased Hold lisinopril Monitor blood pressures Continue BiPAP Blood cultures pending, wound culture growing presumptive MRSA ID following started on IV vancomycin CBC BMP in AM
[2023-12-22] MEDS: VANCOMYCIN 2,250 MG in SODIUM CHLORIDE 0.9% 500 ML 500 ML IVPB SCH (00:55)
[2023-12-22] MEDS: POTASSIUM CHLORIDE 10 MEQ in WATER FOR INJECTION 1 100ML.BAG IVPB SCH (01:58)
[2023-12-22 03:28] LABS: HCT 34.6 % (34.0-46.0); HGB 10.5 gm/dL (11.4-16.0); Hypochromasia Moderate; MCH 30.8 pg (25.0-35.0); MCHC 30.3 g/dL (31.0-37.0); MCV 101.8 fL (80.0-100.0); Macrocytosis Slight; Mean Platelet Volume 7.8; Platelet Count 231 k/uL (150-450); RDW 14.3 % (11.5-15.5); WBC 7.9 k/uL (3.8-10.6)
[2023-12-22 03:42] LABS: INR 2.9 (<1.2); Prothrombin Time 28.8 sec (10.0-12.5)
[2023-12-22 03:54] LABS: African American GFR (CKD) >90 (>60 ml/min/1.73 sqM); Anion Gap 3 mmol/L; Blood Urea Nitrogen 16 mg/dL (7-17); Calcium 9.1 mg/dL (8.4-10.2); Carbon Dioxide 38 mmol/L (22-30); Chloride 95 mmol/L (98-107); Glucose 139 mg/dL (74-99); Non-African American GFR(CKD) 82 (>60 ml/min/1.73 sqM); Potassium 3.2 mmol/L (3.5-5.1); Sodium 136 mmol/L (137-145)
[2023-12-22] MEDS: FUROSEMIDE 10 MG/ML 4 ML VIAL IV SCH (08:59)
[2023-12-22] MEDS: BUMETANIDE 1 MG TAB PO SCH (13:08)
--- NOTE | 2023-12-22 13:08 | P.PN ---
Subjective Progress Note Date: 12/22/23 The patient is a pleasant 73-year-old female patient with extensive cardiovascular history consistent of valvular heart disease status post mitral valve replacement using mechanical valve as well as permanent atrial fibrillation and history of stroke as well as cardiomyopathy with a EF around 40% as well as morbid obesity and hypertension and dyslipidemia and pulmonary hypertension was admitted to the hospital with a change in mental status and also she was admitted with acute hypoxic respiratory failure with a component of heart failure. The echo revealed impaired LV function with EF around 40% December 15, 2023 Patient was seen and evaluated this morning. She still hypoxic. She still hypervolemic with bilateral lower extremities edema. The echo revealed impaired LV function with EF around 40% with severe pulmonary hypertension antiradial right ventricle. The mitral valve appears to be functioning normally which is a mechanical valve which she continues to be on Coumadin with subtherapeutic INR and she continues to be on heparin for bridging. Pharmacy to manage INR. Examination is remarkable for severe bilateral lower extremity edema and diminished breathing sounds bilaterally and irregular rhythm with a systolic murmur at the left upper sternal border December 16, 2023 The patient was seen and evaluated this morning. Overall from the cardiovascular standpoint of view, she seems better but she still have bilateral lower extremities edema which we do not know was her baseline which she continues to be on Lasix IV and GFR continues to be normal but potassium is low which is going to be replaced. From the cardiovascular standpoint of view, we will continue the current medical regimen and continue IV Lasix for additional 12 to 24 hours and consider switching the patient to oral diuretics by tomorrow. INR yesterday was therapeutic and she is on Coumadin has been managed by the pharmacy. The physical examination is remarkable for mechanical first heart sounds with diminished breathing sounds bilaterally and bilateral lower extremities edema worse on the left than the right 12/16 Patient has been maintained on IV Lasix 40 mg every 12 hours. She has a negative fluid balance. Weights do not appear accurate. Repeat blood work reveals potassium 3.2, creatinine 0.75. INR 2.4. Ammonia level yesterday was 37. Potassium has been replaced. CAT scan of the brain showed no acute intracranial process. Stable lacunar infarcts bilaterally basal ganglion. Echocardiogram performed 12/13/2023 reveals EF 40%. Severely dilated right atrium left atrium and left ventricle. Mechanical mitral valve study quality is suboptimal. Severe tricuspid regurgitation. The physical examination is remarkable for mechanical first heart sounds with diminished breathing sounds bilaterally and bilateral lower extremities edema worse on the left than the right December 18, 2023 Patient is seen and examined at bedside this a.m. BP 90s over 56, heart rate 83 bpm, creatinine 0.7, BUN 18, bicarb 41. December 19, 2023 Patient was transferred to ICU because of increased work of breathing, confusion and increased hypotension. Yesterday SBP was around 90s, DBP around 50s. This morning her SBP was around high 80s low 90s. Her diuretics were stopped and she was given IV fluid. She was placed on BiPAP support. December 20, 2023 Patient is still maintained in ICU. For her borderline blood pressures were started on norepinephrine. Patient is extremely volume overloaded clinically with third spacing of fluid with generalized anasarca. Her creatinine and kidney function has been stable. She has not been receiving any diuretics because of low blood pressure. December 21, 2023 Hemoglobin 10.8, INR 2.8, BUN 18, creatinine 0.8, bicarb 40, sodium 135, potassium 3.4. pH 7.42, pCO2 58, pO2 100, Patient made good amount of urine yesterday. She is -4.4 L since yesterday. She responded well to IV diuretics Lasix 40 mg twice daily. She is maintained on low-dose of norepinephrine support to her blood pressure. Today her blood pressure is 90/50, MAP around 65 to 75 mmHg. Appropriate urine output. Renal function is stable. Bicarb is 37, yesterday was 40. She is on Diamox. Assessment Acute hypoxic respiratory failure likely to be multifactorial Acute heart failure exacerbation secondary to HFrEF Permanent atrial fibrillation with controlled heart rate Status post mitral valve placement using mechanical valve on warfarin. History of stroke Multiple comorbid conditions including morbid obesity as well as hypertension and dyslipidemia Cardiomyopathy with EF around 40% Severe pulmonary hypertension Plan Reduce Lasix from twice daily to Lasix 40 mg IV daily. Hold antihypertensives. Aldactone 12.5 mg. If renal function declines, discontinue it. She is getting acetazolamide for high bicarb Would recommend continuous BiPAP support as tolerated to reduce chronic respiratory acidosis and compensatory metabolic alkalosis Hold lisinopril 2.5, Discontinue metolazone. Discontinue beta-elvis Continue aspirin 81 mg daily, atorvastatin 40 mg Monitor blood pressure, heart rate, telemetry, urine output. Continue anticoagulation with Coumadin, pharmacy dosing. INR 3.0. Goal INR 2.5-3.5.The patient is a pleasant 73-year-old female patient with extensive cardiovascular history consistent of valvular heart disease status post mitral valve replacement using mechanical valve as well as permanent atrial fibrillation and history of stroke as well as cardiomyopathy with a EF around 40% as well as morbid obesity and hypertension and dyslipidemia and pulmonary hypertension was admitted to the hospital with a change in mental status and also she was admitted with acute hypoxic respiratory failure with a component of heart failure. The echo revealed impaired LV function with EF around 40% December 15, 2023 Patient was seen and evaluated this morning. She still hypoxic. She still hypervolemic with bilateral lower extremities edema. The echo revealed impaired LV function with EF around 40% with severe pulmonary hypertension antiradial right ventricle. The mitral valve appears to be functioning normally which is a mechanical valve which she continues to be on Coumadin with subtherapeutic INR and she continues to be on heparin for bridging. Pharmacy to manage INR. Examination is remarkable for severe bilateral lower extremity edema and diminished breathing sounds bilaterally and irregular rhythm with a systolic murmur at the left upper sternal border December 16, 2023 The patient was seen and evaluated this morning. Overall from the cardiovascular standpoint of view, she seems better but she still have bilateral lower extremities edema which we do not know was her baseline which she continues to be on Lasix IV and GFR continues to be normal but potassium is low which is going to be replaced. From the cardiovascular standpoint of view, we will continue the current medical regimen and continue IV Lasix for additional 12 to 24 hours and consider switching the patient to oral diuretics by tomorrow. INR yesterday was therapeutic and she is on Coumadin has been managed by the pharmacy. The physical examination is remarkable for mechanical first heart sounds with diminished breathing sounds bilaterally and bilateral lower extremities edema worse on the left than the right 12/16 Patient has been maintained on IV Lasix 40 mg every 12 hours. She has a negative fluid balance. Weights do not appear accurate. Repeat blood work reveals potassium 3.2, creatinine 0.75. INR 2.4. Ammonia level yesterday was 37. Potassium has been replaced. CAT scan of the brain showed no acute intracranial process. Stable lacunar infarcts bilaterally basal ganglion. Echocardiogram performed 12/13/2023 reveals EF 40%. Severely dilated right atrium left atrium and left ventricle. Mechanical mitral valve study quality is suboptimal. Severe tricuspid regurgitation. The physical examination is remarkable for mechanical first heart sounds with diminished breathing sounds bilaterally and bilateral lower extremities edema worse on the left than the right December 18, 2023 Patient is seen and examined at bedside this a.m. BP 90s over 56, heart rate 83 bpm, creatinine 0.7, BUN 18, bicarb 41. December 19, 2023 Patient was transferred to ICU because of increased work of breathing, confusion and increased hypotension. Yesterday SBP was around 90s, DBP around 50s. This morning her SBP was around high 80s low 90s. Her diuretics were stopped and she was given IV fluid. She was placed on BiPAP support. December 20, 2023 Patient is still maintained in ICU. For her borderline blood pressures were started on norepinephrine. Patient is extremely volume overloaded clinically with third spacing of fluid with generalized anasarca. Her creatinine and kidney function has been stable. She has not been receiving any diuretics because of low blood pressure. December 21, 2023 Hemoglobin 10.8, INR 2.8, BUN 18, creatinine 0.8, bicarb 40, sodium 135, potassium 3.4. pH 7.42, pCO2 58, pO2 100, Patient made good amount of urine yesterday. She is -4.4 L since yesterday. She responded well to IV diuretics Lasix 40 mg twice daily. She is maintained on low-dose of norepinephrine support to her blood pressure. Today her blood pressure is 90/50, MAP around 65 to 75 mmHg. Appropriate urine output. Renal function is stable. Bicarb is 37, yesterday was 40. She is on Diamox. December 22, 2023 Hemoglobin stable, INR is at goal, kidney function is stable, good urine output with IV diuretics. Off pressors, blood pressure is stable. Assessment Acute hypoxic respiratory failure likely to be multifactorial Acute heart failure exacerbation secondary to HFrEF Permanent atrial fibrillation with controlled heart rate Status post mitral valve placement using mechanical valve on warfarin. History of stroke Multiple comorbid conditions including morbid obesity as well as hypertension and dyslipidemia Cardiomyopathy with EF around 40% Severe pulmonary hypertension Plan Patient started on p.o. diuretics. I have discontinued Lasix and instead start Bumex 1 mg p.o. increase Aldactone to 25 g daily. Hold lisinopril 2.5, Discontinue metolazone. Discontinue beta-elvis Continue aspirin 81 mg daily, atorvastatin 40 mg Monitor blood pressure, heart rate, telemetry, urine output. Continue anticoagulation with Coumadin, pharmacy dosing. INR 3.0. Goal INR 2.5-3.5. Objective - Vital Signs Vital signs: Vital Signs Temp 97.6 F 12/22/23 12:00 Pulse 80 12/22/23 12:46 Resp 19 12/22/23 12:45 BP 83/53 12/22/23 12:45 Pulse Ox 98 12/22/23 12:45 FiO2 40 12/22/23 09:00 Intake & Output 12/21/23 12/22/23 12/22/23 18:59 06:59 18:59 Intake Total 683.224 493.228 845.679 Output Total 1994 1610 1200 Balance -1311.776 -1116.772 -354.321 Weight 147.8 kg Intake: IV 240 240 120 0.9 240 240 100 Invasive Line 8 20 Intake, IV Titration 443.224 253.228 251.679 Amount Norepinephrine 4 mg In 443.224 253.228 251.679 Sodium Chloride 0.9% 250 ml @ 0.03 MCG/KG/MIN 17. 431 mls/hr IV .[id number] [facility] Rx#:[id number] Oral 474 Output: Urine 1994 1609 1199 Other: Voiding Method Indwelling Catheter Indwelling Catheter - Labs CBC & Chem 7: 12/22/23 02:51 12/22/23 08:14 Labs: Abnormal Lab Results - Last 24 Hours (Table) 12/21/23 12/22/23 12/22/23 Range/Units 19:46 02:49 02:51 RBC 3.40 L (3.80-5.40) m/uL Hgb 10.5 L (11.4-16.0) gm/dL MCV 101.8 H (80.0-100.0) fL MCHC 30.3 L (31.0-37.0) g/dL PT 28.8 H (10.0-12.5) sec INR 2.9 H (<1.2) Sodium (137-145) mmol/L Potassium 3.1 L (3.5-5.1) mmol/L Chloride (98-107) mmol/L Carbon Dioxide (22-30) mmol/L Glucose (74-99) mg/dL 12/22/23 Range/Units 02:51 RBC (3.80-5.40) m/uL Hgb (11.4-16.0) gm/dL MCV (80.0-100.0) fL MCHC (31.0-37.0) g/dL PT (10.0-12.5) sec INR (<1.2) Sodium 136 L (137-145) mmol/L Potassium 3.2 L (3.5-5.1) mmol/L Chloride 95 L (98-107) mmol/L Carbon Dioxide 38 H (22-30) mmol/L Glucose 139 H (74-99) mg/dL Microbiology - Last 24 Hours (Table) 12/20/23 09:56 Blood Culture - Preliminary Blood 12/19/23 13:40 Anaerobic Culture - Preliminary Wrist - Right 12/19/23 13:40 Gram Stain - Final Wrist - Right Wound Culture - Final Methicillin resist S. aureus
--- NOTE | 2023-12-22 14:06 | P.PN ---
Subjective Progress Note Date: 12/22/23 73-year-old female originally seen by Dr. Carroll in the emergency room, and then followed by Dr. Cárdenas afterwards. This is a 73-year-old female who presented with shortness of breath and difficulty breathing. The patient was seen in the emergency department, on December 12. The patient was very confused when she first came in, and was a very poor historian. The patient was initially placed on BiPAP, with settings of 16/6, and 40%. She remains on BiPAP. Patient has a history of atrial fibrillation, coronary disease, CVA, hyperlipidemia, pneumonia, and seizure disorder. The patient apparently also has a previous history of either mitral valve replacement or repair. She is a lifelong non-smoker. Laboratory data includes a white count 6.7, hemoglobin 10.5, hematocrit 34.5, and a platelet count of 103,000. PT was 17.3 with an INR of 1.7. Venous blood gas showed a pCO2 of 98, and a pH of 7.3. Sodium 136, potassium 4.3, chlorides 91, CO2 41, BUN and creatinine were 16 and 0.66. Glucose 159. Calcium 8.2. Troponin was 0.012. N-terminal proBNP was 1760. Chest x-ray showed sternal wires consistent with previous open heart surgery. Cardiac silhouette is enlarged. Costophrenic angles are blunted. This x-ray in my opinion is consistent with pulmonary vascular congestion. EKG shows evidence of atrial fibrillation. Progress note dated December 14, 2023. 73-year-old female seen in room 355. She was initially evaluated in the emergency department. She came in with confusion, and she was a very poor historian. The patient was placed on BiPAP, initially with settings of 16/6, 40%. She has a history of atrial fibrillation, coronary disease, CVA, hyperlipidemia, pneumonia, and seizure disorder. Currently, the patient is on 3 L of oxygen. The BiPAP is in the room. Is not clear to me whether or not she used it last night. She does continue on IV heparin. Current labs include a white count 5.6, hemoglobin 9.6, hematocrit 30.7, and a platelet count of 146,000. PT was 22.7. INR 2.3. PTT was 67.4. Sodium 136, potassium 3.7, chloride 88, CO2 46, BUN 18, creatinine 0.66. Troponins were 0.015, and 0.015. Progress note dated December 15, 2023. 73-year-old female seen again in room 355. The patient is resting comfortably in bed. She denies any complaints. Currently, she is on 2 L of oxygen. She is getting IV heparin. She did use BiPAP last night, with settings of 16/6, and 40%. The patient continues in atrial fibrillation. Current labs include a PTT of 63.1. Sodium 136, potassium 3, chloride 89, CO2 42, BUN 18, creatinine 0.69. Calcium is 8.2. Progress note dated December 16, 2023. 73-year-old female again seen in room 355. The patient is not receiving any IV fluids. The patient is on O2 at 2 L. She did use her BiPAP device last night, with settings of 16/6, and 40%. The patient feels like she is improved. She denies any worsening or more severe shortness of breath, cough, wheezing, chest tightness, or phlegm production. She also denies any chest pain or pressure. Current labs include a PT of 23.5 and an INR of 2.4. Sodium 137, potassium 3.3, chlorides 91, CO2 42, BUN 14, creatinine 0.73. Urine is negative. 12/17/2023, patient is being seen for a follow-up. This patient is awake and alert. She is currently off BiPAP. Overnight, she was on a BiPAP pressure of 16 over 6 cm of water and the patient is currently on 3 L of oxygen by nasal cannula. She is a [place] [facility] resident and she is quite debilitated from the previous CVA and she does have left-sided hemiplegia and chronic lower extremity edema. She was taken off the IV Lasix and the patient is currently on Bumex 1 mg p.o. twice a day. The patient also had a echocardiogram that showed a ejection fraction of 40%. Severe RV dilatation with mild pulmonary hype rtension. The patient also has a mechanical valve/mitral and the patient remains on long-term anticoagulant with warfarin. INR is therapeutic at this point in time. Along with Bumex, the patient is on Zaroxolyn 5 mg p.o. on a daily basis. Rest of the medications remain unchanged. No significant shortness of breath. Repeat CAT scan of the brain done on 12/16/2023 showed stable lacunar infarcts involving the basal ganglia. No acute intracranial abnormalities noted. Other comorbidities include chronic atrial fibrillation, coronary artery disease, hyperlipidemia and seizure disorders. 12/18/2023, the patient is being seen for a follow-up. This morning, the patient is on 2 L of oxygen by nasal cannula. Overnight, the patient was on a BiPAP pressure of 16 over 4 cm of water with FiO2 of 40%. This fluid balance is -3 L over the past 24 hours and the patient continues to have edema lower extremities bilaterally. Remains on a combination of Bumex 1 mg p.o. twice daily, Aldactone 50 mg p.o. daily Zaroxolyn 5 mg p.o. daily. She was given Seroquel overnight and the patient feels to be slightly more sleepy than usual. Otherwise, no other significant events overnight. White cell count of 5.9 with a hemoglobin of 10.2 and a platelet count of 131. BUN is 18 with a creatinine 0.7 and sodium levels at 137 and the potassium level is 3.7. 12/19/2023, the patient got transferred to the intensive care and that the patient became lethargic and hypotensive. It was noted that the systolic blood pressure was running as low as 60 on the medical floor. Based on that, the patient got transferred to the intensive care unit. Diuretics were placed on hold and the patient was given a liter of bolus of IV fluids. Most recent blood pressure currently is 90/76. Urine output is still adequate. The patient was also placed on a BiPAP. This morning, she is on a BiPAP of 16 over 6 cm of water with an FiO2 of 50%. Blood gas was done in the ICU that showed a pH of 7.33 with a pCO2 of 80 and pO2 of 113. This was done while the patient was on a BiPAP. The white cell count is 7.7, it was 10.3 and a platelet count of 168. UA is negative. The rest of the electrolytes show a serum bicarb of 41, sodium levels of 135, potassium is at 3.7. BUN is at 21 with a creatinine of 1.01. Arousable, communicating. Denies having any chest pain. She has a area of skin ulcer that is developed at the level of her wrist with some minimal purulent drainage and erythema around it and the patient is currently on IV cefazolin. On 12/20/2023, the patient is awake. Overnight, the patient stayed on the BiPAP at a pressure of 16/6 with an FiO2 of 40% and currently the patient is on 4 L of oxygen by nasal cannula. The patient received IV fluids and the patient is currently at KVO. Norepinephrine was started at a dose of 0.06 mcg/kg/min. Urine output is adequate. Fluid balance over the past 24 hours +180 cc. No signs of any CO2 narcosis. The patient was given 2 doses of Diamox yesterday 5 500 mg each and the serum bicarb today is at 40. Rest of the diuretics have been discontinued. The sodium is at 138, potassium is at 3.9, chloride is 92, WBC count is at 8 with a hemoglobin 10.7 and a platelet count of 248. Chest x- ray shows cardiomegaly and there is no other acute abnormalities noted. Profoundly weak. Awake and oriented and following commands and answering questions appropriately. She remains on IV cefazolin and the cellulitis in the right wrist wound is showing some improvement without any active drainage. Appropriate dressing has been also applied. On 12/21/2023, the patient is awake and alert and she was taken off the BiPAP and she is currently on 3 L of oxygen by nasal cannula. A follow-up blood gas was done today and the blood gas showed a pH of 7.42 with a pCO2 of 58 and pO2 of 102. As such, there is improvement in acid-base status. Lasix was restarted by cardiology and the patient has been receiving Lasix 40 mg IV every 12 hours with excellent urine output. Fluid balance is -4.4 L over the past 24 hours. Continues to be on low-dose pressors and the patient is currently on norepinephrine at 0.02 mcg/kg/min. Overnight, the patient was on a bilevel pressure of 16/6 with an FiO2 40%. Noted the patient was receiving Diamox. Serum bicarb is down to 37 with a chloride of 92 and a sodium is at 136. The white cell count is at 7.5 with hemoglobin 10.8 and a platelet count of 212. Remains on vancomycin. Remains on anticoagulation with warfarin. INR is therapeutic at 2.8. On 12/22/2023, the patient is being seen for a follow-up. The patient is still producing excellent urine output. Fluid balance over the past 24 hours has been -2.4 L. The patient remains on low-dose norepinephrine at 0.05 mcg/kg/min. Overnight, she was on a BiPAP pressure of 16/6 and currently she is on 2 L of oxygen by nasal cannula. Doing well. Serum bicarb is currently at 38. Potassium is at 3.5 post replacement. INR is at 2.9. White cell count is 7.9 with a hemoglobin 10.5. No signs of any CO2 narcosis. Continue anticoagulation with warfarin. Continue vancomycin. Patient was switched to oral Bumex and IV Lasix has been discontinued. Lower extremity edema is also improving. Objective - Vital Signs Vital signs: Vital Signs Temp 97.6 F 12/22/23 12:00 Pulse 91 12/22/23 13:00 Resp 12 12/22/23 13:00 BP 85/42 12/22/23 13:00 Pulse Ox 98 12/22/23 13:00 FiO2 40 12/22/23 09:00 Intake & Output 12/21/23 12/22/23 12/22/23 18:59 06:59 18:59 Intake Total 683.224 493.228 888.000 Output Total 1994 1610 1900 Balance -1311.776 -1116.772 -1012.000 Weight 147.8 kg Intake: IV 240 240 160 0.9 240 240 140 Invasive Line 8 20 Intake, IV Titration 443.224 253.228 254.000 Amount Norepinephrine 4 mg In 443.224 253.228 254.000 Sodium Chloride 0.9% 250 ml @ 0.03 MCG/KG/MIN 17. 431 mls/hr IV .[id number] [facility] Rx#:[id number] Oral 474 Output: Urine 19940 1900 Other: Voiding Method Indwelling Catheter Indwelling Catheter Indwelling Catheter - Exam No acute distress, much more awake and alert. Currently on BiPAP at a pressure of 16 over 6 cm of water with FiO2 of 40% overnight and the patient was switched to 2 L of oxygen by nasal cannula while awake during the day. The patient is morbidly obese with a BMI of 54.1 HEENT examination is grossly unremarkable. Neck supple. Full range of motion. No adenopathy thyromegaly or neck vein distention. Cardiovascular examination reveals an irregular rhythm and rate. S1-S2 normal. No S3 or S4. No discernible murmur noted. Heart sounds are distant. Lungs reveal diminished bilateral breath sounds. Scattered rhonchi. Scattered crackles are also noted. No wheezes. Breath sounds are equal. Abdomen obese, but soft. No masses or tenderness. Extremities are intact. No cyanosis or clubbing. Lower extremity edema noted. The patient has chronic contractures in the lower extremity with chronic lower extremity edema. There is also a wound with purulent base and some surrounding erythema on the right side. Skin is without rash or lesion. Neurologic examination reveals left-sided hemiplegia related to her previous CVA. - Labs CBC & Chem 7: 12/22/23 02:51 12/22/23 08:14 Labs: Abnormal Lab Results - Last 24 Hours (Table) 12/21/23 12/22/23 12/22/23 Range/Units 19:46 02:49 02:51 RBC 3.40 L (3.80-5.40) m/uL Hgb 10.5 L (11.4-16.0) gm/dL MCV 101.8 H (80.0-100.0) fL MCHC 30.3 L (31.0-37.0) g/dL PT 28.8 H (10.0-12.5) sec INR 2.9 H (<1.2) Sodium (137-145) mmol/L Potassium 3.1 L (3.5-5.1) mmol/L Chloride (98-107) mmol/L Carbon Dioxide (22-30) mmol/L Glucose (74-99) mg/dL 12/22/23 Range/Units 02:51 RBC (3.80-5.40) m/uL Hgb (11.4-16.0) gm/dL MCV (80.0-100.0) fL MCHC (31.0-37.0) g/dL PT (10.0-12.5) sec INR (<1.2) Sodium 136 L (137-145) mmol/L Potassium 3.2 L (3.5-5.1) mmol/L Chloride 95 L (98-107) mmol/L Carbon Dioxide 38 H (22-30) mmol/L Glucose 139 H (74-99) mg/dL Microbiology - Last 24 Hours (Table) 12/20/23 09:56 Blood Culture - Preliminary Blood 12/19/23 13:40 Anaerobic Culture - Preliminary Wrist - Right 12/19/23 13:40 Gram Stain - Final Wrist - Right Wound Culture - Final Methicillin resist S. aureus Assessment and Plan Plan: Acute on chronic hypoxemic and hypercapnic respiratory failure, likely multifactorial, in part related to congestive heart failure, as well as possible sleep apnea syndrome/Pickwickian syndrome. The patient treated with a BiPAP and currently the patient is on liters of oxygen nasal cannula, follow-up blood gas showed improvement in acid-base status. Chest x-ray showing cardiomegaly. Acute hypotension, probably related to aggressive diuresis and fluid shift, could be hypovolemic in nature. The patient was given a liter of IV fluids and the patient's blood pressure is improved. Subsequently, the patient was started on low-dose pressors and the patient is currently on norepinephrine at 0.05 mcg/kg/min to be further weaned today. The patient was restarted on diuretics and the patient has been negative fluid balance of 2.4 L over the past 24 hours. Systolic congestive heart failure, with an ejection fraction of 40 to 45%. Hypercarbic encephalopathy, treated with diuretics, and BiPAP therapy and the patient's mental status is adequate for now. The patient is currently on nasal cannula at 2L and the patient is extubated status is improved History of atrial fibrillation with a relatively controlled ventricular response rate, rate is under better control and the patient is on anticoagulation with warfarin History of mitral valve replacement. The patient has a mechanical valve and the patient has been maintained on long-term anticoagulation with warfarin and re peat INR is therapeutic History of hyperlipidemia. History of CVA. Repeat CAT scan of the brain on 12/16/2023 shows stable findings and the patient has chronic left sided hemiplegia History of tricuspid regurgitation. History of seizure disorder. Chronic lower extremity edema Right wrist wound with MRSA positive cultures, currently on vancomycin Plan: Continue BiPAP for now overnight and during the day the patient will be maintained on 2 L of oxygen nasal cannula Diamox was given Discontinue IV Lasix and put the patient on Bumex 1 mg p.o. daily Continue anticoagulation with warfarin with a therapeutic PT/INR Continue pressors and wean off the norepinephrine, currently at 0.05 mcg/kg/min IV vancomycin Patient is a [place] [facility] resident and the patient is quite debilitated Will continue to follow this patient in the intensive care unit. Condition is more stable. Will attempt to wean off the pressors today. Evaluation was done more than 30 minutes. This is a critical care evaluation. Time with Patient: Greater than 30
--- NOTE | 2023-12-22 15:20 | P.PN ---
Subjective Progress Note Date: 12/22/23 Principal diagnosis: Reason for follow-up is right wrist IV site cellulitis/MRSA Patient is a 73-year-old female with a past medical history significant for atrial fibrillation coronary disease CVA TIA hyperlipidemia pneumonia seizure disorder patient initially presented to hospital for evaluation of increasing shortness of breath subsequently transferred to ICU because of hypotension also noted to have right wrist area wound with some purulent drainage concerning for previous IV site cellulitis and infection. On today's evaluation that is 12/22/2023, patient has been afebrile, patient is breathing comfortably and is currently on 2 L current oxygen, patient denies having any significant cough no chest pain, patient denies nausea vomiting or diarrhea and no abdominal pain, pain to the right wrist has decreased in intensity. The patient white count 7.8, creatinine 0.74 local culture with MRSA blood culture so far negative Objective - Vital Signs Vital signs: Vital Signs Temp 97.6 F 12/22/23 12:00 Pulse 91 12/22/23 13:00 Resp 12 12/22/23 13:00 BP 85/42 12/22/23 13:00 Pulse Ox 98 12/22/23 13:00 FiO2 40 12/22/23 09:00 Intake & Output 12/21/23 12/22/23 12/22/23 18:59 06:59 18:59 Intake Total 683.224 493.228 888.000 Output Total 1994 1609 1899 Balance -1311.776 -1116.772 -1012.000 Weight 147.8 kg Intake: IV 240 240 160 0.9 240 240 140 Invasive Line 8 20 Intake, IV Titration 443.224 253.228 254.000 Amount Norepinephrine 4 mg In 443.224 253.228 254.000 Sodium Chloride 0.9% 250 ml @ 0.03 MCG/KG/MIN 17. 431 mls/hr IV .[id number] [facility] Rx#:[id number] Oral 474 Output: Urine 1994 1609 1899 Other: Voiding Method Indwelling Catheter Indwelling Catheter Indwelling Catheter - Exam GENERAL DESCRIPTION: An elderly female lying in bed in no distress RESPIRATORY SYSTEM: Unlabored breathing , decreased breath sounds at bases HEART: S1 S2 regular rate and rhythm , ABDOMEN: Soft , no tenderness EXTREMITIES: Right wrist swelling redness has decreased no further purulent drainage - Labs CBC & Chem 7: 12/22/23 02:51 12/22/23 08:14 Labs: Abnormal Lab Results - Last 24 Hours (Table) 12/21/23 12/22/23 12/22/23 Range/Units 19:46 02:49 02:51 RBC 3.40 L (3.80-5.40) m/uL Hgb 10.5 L (11.4-16.0) gm/dL MCV 101.8 H (80.0-100.0) fL MCHC 30.3 L (31.0-37.0) g/dL PT 28.8 H (10.0-12.5) sec INR 2.9 H (<1.2) Sodium (137-145) mmol/L Potassium 3.1 L (3.5-5.1) mmol/L Chloride (98-107) mmol/L Carbon Dioxide (22-30) mmol/L Glucose (74-99) mg/dL 12/22/23 Range/Units 02:51 RBC (3.80-5.40) m/uL Hgb (11.4-16.0) gm/dL MCV (80.0-100.0) fL MCHC (31.0-37.0) g/dL PT (10.0-12.5) sec INR (<1.2) Sodium 136 L (137-145) mmol/L Potassium 3.2 L (3.5-5.1) mmol/L Chloride 95 L (98-107) mmol/L Carbon Dioxide 38 H (22-30) mmol/L Glucose 139 H (74-99) mg/dL Microbiology - Last 24 Hours (Table) 12/20/23 09:56 Blood Culture - Preliminary Blood 12/19/23 13:40 Anaerobic Culture - Preliminary Wrist - Right Assessment and Plan (1) Cellulitis of right wrist Current Visit: Yes Status: Acute Code(s): L03.113 - CELLULITIS OF RIGHT UPPER LIMB SNOMED Code(s): 81505922677812902 (2) Phlebitis Current Visit: Yes Status: Acute Code(s): I80.9 - PHLEBITIS AND TH ROMBOPHLEBITIS OF UNSPECIFIED SITE SNOMED Code(s): 99773454 (3) MRSA (methicillin resistant Staphylococcus aureus) infection Current Visit: Yes Status: Acute Code(s): A49.02 - METHICILLIN RESIS STAPH INFECTION, UNSP SITE SNOMED Code(s): 919554620 Plan: 1patient with right wrist cellulitis at site of previous IV now with evidence of some purulent drainage and surrounding redness likely from gram-positive skin camille 2-blood and local culture has been requested, blood culture pending local culture with MRSA blood cultures so far negative 3-patient did have improvement of the right wrist, to continue with vancomycin pharmacy to dose and will transition to oral antibiotics on discharge Dictation was produced using [employer] dictation software. please excuse any grammatical, word or spelling errors. Time with Patient: Less than 30
[2023-12-22] MEDS: bisacodyL 10 MG SUPP RECTAL SCH (20:03)
--- NOTE | 2023-12-22 22:53 | P.PN ---
Subjective Progress Note Date: 12/22/23 73-year-old female was sent in because of decreased level of consciousness with concerns of aspiration. Patient was also short of breath patient is found to be in hypercapnic respiratory failure with pH of 7.3 and pCO2 of 90 and pO2 of around 70. Patient does have history of obstructive sleep apnea morbidly obese female uses CPAP machine at nighttime. Patient does have multiple other medical problems including congestive heart failure with a EF of around 40 to 45% chest x-ray showing some pulmonary edema and BNP of 1700. Patient does not have any fever chills presently on BiPAP at this time. Patient is on Bumex 2 mg twice a day as an outpatient. Patient does have mild pedal edema on exam. Patient does use oxygen at baseline. Patient is mostly bedbound bilateral does have bilateral foot drop has history of cerebrovascular accident as well in the past 12/21/2023 --the patient is seen and evaluated with nursing staff at bedside; patient taken off the BiPAP and she is currently on 3 L of oxygen by nasal cannula. -- blood gas showed a pH of 7.42 with a pCO2 of 58 and pO2 of 102. As such, there is improvement in acid-base status. - Lasix was restarted by cardiology and the patient has been receiving Lasix 40 mg IV every 12 hours with excellent urine output. Continues to be on low-dose pressors and the patient is currently on norepinephrine at 0.02 mcg/kg/min. -- Serum bicarb is down to 37 with a chloride of 92 and a sodium is at 136. The white cell count is at 7.5 with hemoglobin 10.8 and a platelet count of 212. Remains on vancomycin. Remains on anticoagulation with warfarin. INR is therapeutic at 2.8. 12/22/2023 --the patient is seen for a follow-up. The patient is still producing excellent urine output. Fluid balance over the past 24 hours has been -2.4 L. The patient remains on low-dose norepinephrine at 0.05 mcg/kg/min. Overnight, she was on a BiPAP pressure of 16/6 and currently she is on 2 L of oxygen by nasal cannula. Doing well. Serum bicarb is currently at 38. Potassium is at 3.5 post replacement. INR is at 2.9. White cell count is 7.9 with a hemoglobin 10.5. No signs of any CO2 narcosis. Continue anticoagulation with warfarin. Continue vancomycin. Patient was switched to oral Bumex and IV Lasix has been discontinued. Lower extremity edema is also improving. patient with right wrist cellulitis at site of previous IV now with evidence of some purulent drainage and surrounding redness likely from gram-positive skin camille -blood and local culture has been requested, blood culture pending local culture with MRSA blood cultures so far negative -patient did have improvement of the right wrist, to continue with vancomycin pharmacy to dose and will transition to oral antibiotics on discharge Objective - Vital Signs Vital signs: Vital Signs Temp 98.2 F 12/22/23 04:00 Pulse 76 12/22/23 07:53 Resp 11 L 12/22/23 06:30 BP 105/58 12/22/23 06:30 Pulse Ox 98 12/22/23 06:30 FiO2 40 12/22/23 07:40 Intake & Output 12/21/23 12/22/23 12/22/23 18:59 06:59 18:59 Intake Total 683.224 493.228 Output Total 1994 1610 Balance -1311.776 -1116.772 Weight 147.8 kg Intake: IV 240 240 0.9 240 240 Intake, IV Titration 443.224 253.228 Amount Norepinephrine 4 mg In 443.224 253.228 Sodium Chloride 0.9% 250 ml @ 0.03 MCG/KG/MIN 17. 431 mls/hr IV .[id number] [facility] Rx#:[id number] Output: Urine 1994 1609 Other: Voiding Method Indwelling Catheter Indwelling Catheter - Exam GENERAL: Morbidly obese drowsy oriented x 3, patient is on nasal cannula. BiPAP HEENT: Pupils are round and equally reacting to light. EOMI. No scleral icterus. No conjunctival pallor. Normocephalic, atraumatic. No pharyngeal erythema. No thyromegaly. CARDIOVASCULAR: S1 and S2 present. No murmurs, rubs, or gallops. PULMONARY: Good air entry with mild expiratory wheezing on exam ABDOMEN: Soft, nontender, nondistended, normoactive bowel sounds. No palpable organomegaly. MUSCULOSKELETAL: No joint swelling or deformity. EXTREMITIES: No cyanosis, clubbing, or my lower EXTR bilateral pedal edema NEUROLOGICAL: Gross neurological examination did not reveal any focal deficits. Has old left arm contractures and left foot drop. SKIN: No rashes. Right wrist open wound with purulent drainage and surrounding cellulitis - Labs CBC & Chem 7: 12/22/23 02:51 12/22/23 08:14 Labs: Abnormal Lab Results - Last 24 Hours (Table) 12/21/23 12/21/23 12/22/23 Range/Units 10:45 19:46 02:49 RBC (3.80-5.40) m/uL Hgb (11.4-16.0) gm/dL MCV (80.0-100.0) fL MCHC (31.0-37.0) g/dL PT 28.8 H (10.0-12.5) sec INR 2.9 H (<1.2) Sodium 136 L (137-145) mmol/L Potassium 3.1 L (3.5-5.1) mmol/L Chloride 92 L (98-107) mmol/L Carbon Dioxide 37 H (22-30) mmol/L Glucose (74-99) mg/dL 12/22/23 12/22/23 Range/Units 02:51 02:51 RBC 3.40 L (3.80-5.40) m/uL Hgb 10.5 L (11.4-16.0) gm/dL MCV 101.8 H (80.0-100.0) fL MCHC 30.3 L (31.0-37.0) g/dL PT (10.0-12.5) sec INR (<1.2) Sodium 136 L (137-145) mmol/L Potassium 3.2 L (3.5-5.1) mmol/L Chloride 95 L (98-107) mmol/L Carbon Dioxide 38 H (22-30) mmol/L Glucose 139 H (74-99) mg/dL Microbiology - Last 24 Hours (Table) 12/20/23 09:56 Blood Culture - Preliminary Blood 12/19/23 13:40 Anaerobic Culture - Preliminary Wrist - Right 12/19/23 13:40 Gram Stain - Final Wrist - Right Wound Culture - Final Methicillin resist S. aureus Assessment and Plan Assessment: -Acute hypoxic and hypercapnic respiratory failure on chronic hypercapnic respiratory failure and is is probably because of obesity sleep apnea and mild bronchitis may have contributed to CO2 retention Batient is on BiPAP at HS -Acute hypoxic respiratory failure secondary to congestive heart failure chronic systolic function EF of around 40 to 45. -Pulmonary hypertension -Hypovolemic shock currently on levophed and in the ICU. 2L fluid bolus given. BPs better today. -Hypokalemia from diuresis improved. -Altered mental status secondary to acute metabolic encephalopathy and elevated CO2 levels. -Respiratory acidosis secondary to CO2 retention -Right wrist cellulitis and purulent wound from IV site with cultures showing presumptive MRSA. Now on IV vancomycin and ID consultation. 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 -History of CVA in the past -Seizure disorder for which patient is on Keppra which will be resumed -Hyperlipidemia -Obesity and sleep apnea -Chronic medical debility -Foot drop -Peripheral neuropathy for which patient is on gabapentin which will be resumed DVT prophylaxis: Warfarin GI prophylaxis Full Code Plan Keppra has been increased by neurology Patient has received 2L fluid bolus and started on levophed Will need to hold the bumex, metolozone Aldactone decreased Hold lisinopril Monitor blood pressures Continue BiPAP Blood cultures pending, wound culture growing presumptive MRSA ID following started on IV vancomycin CBC BMP in AM
[2023-12-23 03:39] LABS: INR 3.1 (<1.2); Prothrombin Time 30.8 sec (10.0-12.5)
[2023-12-23 03:41] LABS: African American GFR (CKD) >90 (>60 ml/min/1.73 sqM); Anion Gap 3 mmol/L; Blood Urea Nitrogen 16 mg/dL (7-17); Calcium 9.1 mg/dL (8.4-10.2); Carbon Dioxide 33 mmol/L (22-30); Chloride 98 mmol/L (98-107); Glucose 133 mg/dL (74-99); Non-African American GFR(CKD) 82 (>60 ml/min/1.73 sqM); Potassium 3.2 mmol/L (3.5-5.1); Sodium 134 mmol/L (137-145)
[2023-12-23 03:44] LABS: HCT 33.6 % (34.0-46.0); HGB 10.4 gm/dL (11.4-16.0); Hypochromasia Slight; MCHC 30.9 g/dL (31.0-37.0); MCV 100.2 fL (80.0-100.0); Macrocytosis Slight; Mean Platelet Volume 8.4; Platelet Count 222 k/uL (150-450); RBC 3.35 m/uL (3.80-5.40); RDW 14.2 % (11.5-15.5); WBC 6.9 k/uL (3.8-10.6)
[2023-12-23] MEDS: DOCUSATE 100 MG CAP PO PRN (07:45)
[2023-12-23] MEDS: POTASSIUM CHLORIDE ER 20 MEQ TAB.ER PO SCH (07:46)
[2023-12-23] MEDS: SPIRONOLACTONE 25 MG TAB PO SCH (07:47)
[2023-12-23] MEDS: BUMETANIDE 1 MG TAB PO SCH (07:48)
[2023-12-23] MEDS ORDERED: FUROSEMIDE 40 MG TAB PO SCH (09:00)
--- NOTE | 2023-12-23 11:26 | P.PN ---
Subjective Progress Note Date: 12/23/23 73-year-old female originally seen by Dr. Carroll in the emergency room, and then followed by Dr. Cárdenas afterwards. This is a 73-year-old female who presented with shortness of breath and difficulty breathing. The patient was seen in the emergency department, on December 12. The patient was very confused when she first came in, and was a very poor historian. The patient was initially placed on BiPAP, with settings of 16/6, and 40%. She remains on BiPAP. Patient has a history of atrial fibrillation, coronary disease, CVA, hyperlipidemia, pneumonia, and seizure disorder. The patient apparently also has a previous history of either mitral valve replacement or repair. She is a lifelong non-smoker. Laboratory data includes a white count 6.7, hemoglobin 10.5, hematocrit 34.5, and a platelet count of 103,000. PT was 17.3 with an INR of 1.7. Venous blood gas showed a pCO2 of 98, and a pH of 7.3. Sodium 136, potassium 4.3, chlorides 91, CO2 41, BUN and creatinine were 16 and 0.66. Glucose 159. Calcium 8.2. Troponin was 0.012. N-terminal proBNP was 1760. Chest x-ray showed sternal wires consistent with previous open heart surgery. Cardiac silhouette is enlarged. Costophrenic angles are blunted. This x-ray in my opinion is consistent with pulmonary vascular congestion. EKG shows evidence of atrial fibrillation. Progress note dated December 14, 2023. 73-year-old female seen in room 355. She was initially evaluated in the emergency department. She came in with confusion, and she was a very poor historian. The patient was placed on BiPAP, initially with settings of 16/6, 40%. She has a history of atrial fibrillation, coronary disease, CVA, hyperlipidemia, pneumonia, and seizure disorder. Currently, the patient is on 3 L of oxygen. The BiPAP is in the room. Is not clear to me whether or not she used it last night. She does continue on IV heparin. Current labs include a white count 5.6, hemoglobin 9.6, hematocrit 30.7, and a platelet count of 146,000. PT was 22.7. INR 2.3. PTT was 67.4. Sodium 136, potassium 3.7, chloride 88, CO2 46, BUN 18, creatinine 0.66. Troponins were 0.015, and 0.015. Progress note dated December 15, 2023. 73-year-old female seen again in room 355. The patient is resting comfortably in bed. She denies any complaints. Currently, she is on 2 L of oxygen. She is getting IV heparin. She did use BiPAP last night, with settings of 16/6, and 40%. The patient continues in atrial fibrillation. Current labs include a PTT of 63.1. Sodium 136, potassium 3, chloride 89, CO2 42, BUN 18, creatinine 0.69. Calcium is 8.2. Progress note dated December 16, 2023. 73-year-old female again seen in room 355. The patient is not receiving any IV fluids. The patient is on O2 at 2 L. She did use her BiPAP device last night, with settings of 16/6, and 40%. The patient feels like she is improved. She denies any worsening or more severe shortness of breath, cough, wheezing, chest tightness, or phlegm production. She also denies any chest pain or pressure. Current labs include a PT of 23.5 and an INR of 2.4. Sodium 137, potassium 3.3, chlorides 91, CO2 42, BUN 14, creatinine 0.73. Urine is negative. 12/17/2023, patient is being seen for a follow-up. This patient is awake and alert. She is currently off BiPAP. Overnight, she was on a BiPAP pressure of 16 over 6 cm of water and the patient is currently on 3 L of oxygen by nasal cannula. She is a [facility] resident and she is quite debilitated from the previous CVA and she does have left-sided hemiplegia and chronic lower extremity edema. She was taken off the IV Lasix and the patient is currently on Bumex 1 mg p.o. twice a day. The patient also had a echocardiogram that showed a ejection fraction of 40%. Severe RV dilatation with mild pulmonary hype rtension. The patient also has a mechanical valve/mitral and the patient remains on long-term anticoagulant with warfarin. INR is therapeutic at this point in time. Along with Bumex, the patient is on Zaroxolyn 5 mg p.o. on a daily basis. Rest of the medications remain unchanged. No significant shortness of breath. Repeat CAT scan of the brain done on 12/16/2023 showed stable lacunar infarcts involving the basal ganglia. No acute intracranial abnormalities noted. Other comorbidities include chronic atrial fibrillation, coronary artery disease, hyperlipidemia and seizure disorders. 12/18/2023, the patient is being seen for a follow-up. This morning, the patient is on 2 L of oxygen by nasal cannula. Overnight, the patient was on a BiPAP pressure of 16 over 4 cm of water with FiO2 of 40%. This fluid balance is -3 L over the past 24 hours and the patient continues to have edema lower extremities bilaterally. Remains on a combination of Bumex 1 mg p.o. twice daily, Aldactone 50 mg p.o. daily Zaroxolyn 5 mg p.o. daily. She was given Seroquel overnight and the patient feels to be slightly more sleepy than usual. Otherwise, no other significant events overnight. White cell count of 5.9 with a hemoglobin of 10.2 and a platelet count of 131. BUN is 18 with a creatinine 0.7 and sodium levels at 137 and the potassium level is 3.7. 12/19/2023, the patient got transferred to the intensive care and that the patient became lethargic and hypotensive. It was noted that the systolic blood pressure was running as low as 60 on the medical floor. Based on that, the patient got transferred to the intensive care unit. Diuretics were placed on hold and the patient was given a liter of bolus of IV fluids. Most recent blood pressure currently is 90/76. Urine output is still adequate. The patient was also placed on a BiPAP. This morning, she is on a BiPAP of 16 over 6 cm of water with an FiO2 of 50%. Blood gas was done in the ICU that showed a pH of 7.33 with a pCO2 of 80 and pO2 of 113. This was done while the patient was on a BiPAP. The white cell count is 7.7, it was 10.3 and a platelet count of 168. UA is negative. The rest of the electrolytes show a serum bicarb of 41, sodium levels of 135, potassium is at 3.7. BUN is at 21 with a creatinine of 1.01. Arousable, communicating. Denies having any chest pain. She has a area of skin ulcer that is developed at the level of her wrist with some minimal purulent drainage and erythema around it and the patient is currently on IV cefazolin. On 12/20/2023, the patient is awake. Overnight, the patient stayed on the BiPAP at a pressure of 16/6 with an FiO2 of 40% and currently the patient is on 4 L of oxygen by nasal cannula. The patient received IV fluids and the patient is currently at KVO. Norepinephrine was started at a dose of 0.06 mcg/kg/min. Urine output is adequate. Fluid balance over the past 24 hours +180 cc. No signs of any CO2 narcosis. The patient was given 2 doses of Diamox yesterday 5 500 mg each and the serum bicarb today is at 40. Rest of the diuretics have been discontinued. The sodium is at 138, potassium is at 3.9, chloride is 92, WBC count is at 8 with a hemoglobin 10.7 and a platelet count of 248. Chest x- ray shows cardiomegaly and there is no other acute abnormalities noted. Profoundly weak. Awake and oriented and following commands and answering questions appropriately. She remains on IV cefazolin and the cellulitis in the right wrist wound is showing some improvement without any active drainage. Appropriate dressing has been also applied. On 12/21/2023, the patient is awake and alert and she was taken off the BiPAP and she is currently on 3 L of oxygen by nasal cannula. A follow-up blood gas was done today and the blood gas showed a pH of 7.42 with a pCO2 of 58 and pO2 of 102. As such, there is improvement in acid-base status. Lasix was restarted by cardiology and the patient has been receiving Lasix 40 mg IV every 12 hours with excellent urine output. Fluid balance is -4.4 L over the past 24 hours. Continues to be on low-dose pressors and the patient is currently on norepinephrine at 0.02 mcg/kg/min. Overnight, the patient was on a bilevel pressure of 16/6 with an FiO2 40%. Noted the patient was receiving Diamox. Serum bicarb is down to 37 with a chloride of 92 and a sodium is at 136. The white cell count is at 7.5 with hemoglobin 10.8 and a platelet count of 212. Remains on vancomycin. Remains on anticoagulation with warfarin. INR is therapeutic at 2.8. On 12/22/2023, the patient is being seen for a follow-up. The patient is still producing excellent urine output. Fluid balance over the past 24 hours has been -2.4 L. The patient remains on low-dose norepinephrine at 0.05 mcg/kg/min. Overnight, she was on a BiPAP pressure of 16/6 and currently she is on 2 L of oxygen by nasal cannula. Doing well. Serum bicarb is currently at 38. Potassium is at 3.5 post replacement. INR is at 2.9. White cell count is 7.9 with a hemoglobin 10.5. No signs of any CO2 narcosis. Continue anticoagulation with warfarin. Continue vancomycin. Patient was switched to oral Bumex and IV Lasix has been discontinued. Lower extremity edema is also improving. On 12/23/2023, the patient remains in negative fluid balance of 1.5 L. She is currently on Bumex 1 mg and Aldactone 25 mg. Norepinephrine was discontinued this morning. Awake and alert and communicating. She is on oxygen and she is on 3 L/min nasal cannula. Awake and alert. No signs of any encephalopathy. The wound and cellulitis of the right upper extremity improving as the patient was cultured to have MRSA and the patient remains on vancomycin. No other significant events overnight. She does have some residual edema lower extremities bilaterally. Labs from today show a white cell count of 6.9, hemoglobin 10.4 and a platelet count of 222. Serum bicarb is at 33 and a BUN 16 with a creatinine of 0.74 and sodium levels at 03/13/2019 potassium level needs to be replaced. No other complaints otherwise for now. Objective - Vital Signs Vital signs: Vital Signs Temp 98.3 F 12/23/23 08:00 Pulse 72 12/23/23 10:15 Resp 22 12/23/23 10:15 BP 93/50 12/23/23 09:00 Pulse Ox 97 12/23/23 10:15 FiO2 40 12/23/23 07:45 Intake & Output 12/22/23 12/23/23 12/23/23 18:59 06:59 18:59 Intake Total 1033.811 530 749.136 Output Total 2795 660 150 Balance -1761.189 -130 599.136 Intake: IV 300 280 600 0.9 260 220 80 Invasive Line 6 10 30 10 Invasive Line 8 30 30 10 Vancomycin 2,250 mg In 500 Sodium Chloride 0.9% 500 ml 500 ml @ 167 mls/hr IVPB Q16H [facility] Rx#: [id number] Intake, IV Titration 259.811 149.136 Amount Norepinephrine 4 mg In 259.811 149.136 Sodium Chloride 0.9% 250 ml @ 0.03 MCG/KG/MIN 17. 431 mls/hr IV .[id number] [facility] Rx#:[id number] Oral 474 250 Output: Urine 2795 660 150 Other: Voiding Method Indwelling Catheter Indwelling Catheter Indwelling Catheter # Bowel Movements 0 - Exam No acute distress, much more awake and alert. Currently on BiPAP at a pressure of 16 over 6 cm of water with FiO2 of 40% overnight and the patient was switched to 2 L of oxygen by nasal cannula while awake during the day. The patient is morbidly obese with a BMI of 54.1 HEENT examination is grossly unremarkable. Neck supple. Full range of motion. No adenopathy thyromegaly or neck vein distention. Cardiovascular examination reveals an irregular rhythm and rate. S1-S2 normal. No S3 or S4. No discernible murmur noted. Heart sounds are distant. Lungs reveal diminished bilateral breath sounds. Scattered rhonchi. Scattered crackles are also noted. No wheezes. Breath sounds are equal. Abdomen obese, but soft. No masses or tenderness. Extremities are intact. No cyanosis or clubbing. Lower extremity edema noted. The patient has chronic contractures in the lower extremity with chronic lower extremity edema. There is also a wound with purulent base and some surrounding erythema on the right side. Skin is without rash or lesion. Neurologic examination reveals left-sided hemiplegia related to her previous CVA. - Labs CBC & Chem 7: 12/23/23 03:04 12/23/23 03:04 Labs: Abnormal Lab Results - Last 24 Hours (Table) 12/23/23 12/23/23 12/23/23 Range/Units 03:04 03:04 03:04 RBC 3.35 L (3.80-5.40) m/uL Hgb 10.4 L (11.4-16.0) gm/dL Hct 33.6 L (34.0-46.0) % MCV 100.2 H (80.0-100.0) fL MCHC 30.9 L (31.0-37.0) g/dL PT 30.8 H (10.0-12.5) sec INR 3.1 H (<1.2) Sodium 134 L (137-145) mmol/L Potassium 3.2 L (3.5-5.1) mmol/L Carbon Dioxide 33 H (22-30) mmol/L Glucose 133 H (74-99) mg/dL Microbiology - Last 24 Hours (Table) 12/19/23 13:40 Anaerobic Culture - Final Wrist - Right 12/17/23 13:07 Blood Culture - Final Blood 12/20/23 09:56 Blood Culture - Preliminary Blood Assessment and Plan Plan: Acute on chronic hypoxemic and hypercapnic respiratory failure, likely multifactorial, in part related to congestive heart failure, as well as possible sleep apnea syndrome/Pickwickian syndrome. The patient treated with a BiPAP and currently the patient is on 3 liters of oxygen nasal cannula, follow-up blood gas showed improvement in acid-base status. Chest x-ray showing cardiomegaly. Acid-base status is improved and the patient is currently on 3 L of oxygen by nasal cannula. Acute hypotension, probably related to aggressive diuresis and fluid shift, the patient is currently off pressors and the patient's diuretics are in a combination of Bumex and Aldactone.. Systolic congestive heart failure, with an ejection fraction of 40 to 45%. Hypercarbic encephalopathy, treated with diuretics, and BiPAP therapy and the patient's mental status is adequate for now. The patient is currently on nasal cannula at 3 L History of atrial fibrillation with a relatively controlled ventricular response rate, rate is under better control and the patient is on anticoagulation with warfarin History of mitral valve replacement. The patient has a mechanical valve and the patient has been maintained on long-term anticoagulation with warfarin and repeat INR is therapeutic History of hyperlipidemia. History of CVA. Repeat CAT scan of the brain on 12/16/2023 shows stable findings and the patient has chronic left sided hemiplegia History of tricuspid regurgitation. History of seizure disorder. Chronic lower extremity edema Right wrist wound with MRSA positive cultures, currently on vancomycin Plan: Titrate oxygen flow to maintain saturation above 90% Diamox was given and the metabolic alkalosis improved Continue Bumex 1 mg p.o. daily and Aldactone 25 mg p.o. daily Continue anticoagulation with warfarin with a therapeutic PT/INR Patient is currently off pressors IV vancomycin Patient is a [facility] resident and the patient is quite debilitated Will continue to follow this patient in the intensive care unit. Condition is more stable. Should be able to transfer out of the intensive care unit as long as the patient remains off pressors.
--- NOTE | 2023-12-23 15:06 | P.PN ---
Subjective Progress Note Date: 12/23/23 Principal diagnosis: Reason for follow-up is right wrist IV site cellulitis/MRSA Patient is a 73-year-old female with a past medical history significant for atrial fibrillation coronary disease CVA TIA hyperlipidemia pneumonia seizure disorder patient initially presented to hospital for evaluation of increasing shortness of breath subsequently transferred to ICU because of hypotension also noted to have right wrist area wound with some purulent drainage concerning for previous IV site cellulitis and infection. On today's evaluation that is 12/23/2023, Patient is afebrile this morning patient denies having any chest pain shortness of breath or cough, the patient is currently on 2 L nasal oxygen, patient denies any abdominal pain no diarrhea no nausea no vomiting, pain to the right wrist has decreased in intensity. Patient white count 6.9, creatinine 0.74 blood culture remains to be negative. Objective - Vital Signs Vital signs: Vital Signs Temp 98.2 F 12/23/23 12:00 Pulse 74 12/23/23 13:00 Resp 14 12/23/23 13:00 BP 91/67 12/23/23 13:00 Pulse Ox 98 12/23/23 13:00 FiO2 40 12/23/23 07:45 Intake & Output 12/22/23 12/23/23 12/23/23 18:59 06:59 18:59 Intake Total 1033.811 530 829.136 Output Total 2795 660 300 Balance -1761.189 -130 529.136 Weight 143.1 kg Intake: IV 300 280 680 0.9 260 220 140 Invasive Line 6 10 30 20 Invasive Line 8 30 30 20 Vancomycin 2,250 mg In 500 Sodium Chloride 0.9% 500 ml 500 ml @ 167 mls/hr IVPB Q16H [facility] Rx#: [id number] Intake, IV Titration 259.811 149.136 Amount Norepinephrine 4 mg In 259.811 149.136 Sodium Chloride 0.9% 250 ml @ 0.03 MCG/KG/MIN 17. 431 mls/hr IV .[id number] [facility] Rx#:[id number] Oral 474 250 Output: Urine 2795 660 300 Other: Voiding Method Indwelling Catheter Indwelling Catheter Indwelling Catheter # Bowel Movements 0 - Exam GENERAL DESCRIPTION: An elderly female lying in bed in no distress RESPIRATORY SYSTEM: Unlabored breathing , decreased breath sounds at bases HEART: S1 S2 regular rate and rhythm , ABDOMEN: Soft , no tenderness EXTREMITIES: Right wrist swelling redness has decreased no further purulent drainage - Labs CBC & Chem 7: 12/23/23 03:04 12/23/23 13:32 Labs: Abnormal Lab Results - Last 24 Hours (Table) 12/23/23 12/23/23 12/23/23 Range/Units 03:04 03:04 03:04 RBC 3.35 L (3.80-5.40) m/uL Hgb 10.4 L (11.4-16.0) gm/dL Hct 33.6 L (34.0-46.0) % MCV 100.2 H (80.0-100.0) fL MCHC 30.9 L (31.0-37.0) g/dL PT 30.8 H (10.0-12.5) sec INR 3.1 H (<1.2) Sodium 134 L (137-145) mmol/L Potassium 3.2 L (3.5-5.1) mmol/L Carbon Dioxide 33 H (22-30) mmol/L Glucose 133 H (74-99) mg/dL Microbiology - Last 24 Hours (Table) 12/19/23 13:40 Anaerobic Culture - Final Wrist - Right 12/17/23 13:07 Blood Culture - Final Blood 12/20/23 09:56 Blood Culture - Preliminary Blood Assessment and Plan (1) Cellulitis of right wrist Current Visit: Yes Status: Acute Code(s): L03.113 - CELLULITIS OF RIGHT UPP ER LIMB SNOMED Code(s): 44718708498000375 (2) Phlebitis Current Visit: Yes Status: Acute Code(s): I80.9 - PHLEBITIS AND THROMBOPHLEBITIS OF UNSPECIFIED SITE SNOMED Code(s): 94616567 (3) MRSA (methicillin resistant Staphylococcus aureus) infection Current Visit: Yes Status: Acute Code(s): A49.02 - METHICILLIN RESIS STAPH INFECTION, UNSP SITE SNOMED Code(s): 935840326 Plan: 1patient with right wrist cellulitis at site of previous IV now with evidence of some purulent drainage and surrounding redness likely from gram-positive skin camille 2-blood and local culture has been requested, blood culture pending local culture with MRSA blood cultures so far negative 3-patient did have improvement of the right wrist, patient is currently being treated the vancomycin to continue while inpatient will transition to doxycycline on discharge Dictation was produced using [employer] dictation software. please excuse any grammatical, word or spelling errors. Time with Patient: Less than 30
--- NOTE | 2023-12-23 15:09 | P.PN ---
Subjective Progress Note Date: 12/23/23 The patient is a pleasant 73-year-old female patient with extensive cardiovascular history consistent of valvular heart disease status post mitral valve replacement using mechanical valve as well as permanent atrial fibrillation and history of stroke as well as cardiomyopathy with a EF around 40% as well as morbid obesity and hypertension and dyslipidemia and pulmonary hypertension was admitted to the hospital with a change in mental status and also she was admitted with acute hypoxic respiratory failure with a component of heart failure. The echo revealed impaired LV function with EF around 40% December 15, 2023 Patient was seen and evaluated this morning. She still hypoxic. She still hypervolemic with bilateral lower extremities edema. The echo revealed impaired LV function with EF around 40% with severe pulmonary hypertension antiradial right ventricle. The mitral valve appears to be functioning normally which is a mechanical valve which she continues to be on Coumadin with subtherapeutic INR and she continues to be on heparin for bridging. Pharmacy to manage INR. Examination is remarkable for severe bilateral lower extremity edema and diminished breathing sounds bilaterally and irregular rhythm with a systolic murmur at the left upper sternal border December 16, 2023 The patient was seen and evaluated this morning. Overall from the cardiovascular standpoint of view, she seems better but she still have bilateral lower extremities edema which we do not know was her baseline which she continues to be on Lasix IV and GFR continues to be normal but potassium is low which is going to be replaced. From the cardiovascular standpoint of view, we will continue the current medical regimen and continue IV Lasix for additional 12 to 24 hours and consider switching the patient to oral diuretics by tomorrow. INR yesterday was therapeutic and she is on Coumadin has been managed by the pharmacy. The physical examination is remarkable for mechanical first heart sounds with diminished breathing sounds bilaterally and bilateral lower extremities edema worse on the left than the right 12/16 Patient has been maintained on IV Lasix 40 mg every 12 hours. She has a negative fluid balance. Weights do not appear accurate. Repeat blood work reveals potassium 3.2, creatinine 0.75. INR 2.4. Ammonia level yesterday was 37. Potassium has been replaced. CAT scan of the brain showed no acute intracranial process. Stable lacunar infarcts bilaterally basal ganglion. Echocardiogram performed 12/13/2023 reveals EF 40%. Severely dilated right atrium left atrium and left ventricle. Mechanical mitral valve study quality is suboptimal. Severe tricuspid regurgitation. The physical examination is remarkable for mechanical first heart sounds with diminished breathing sounds bilaterally and bilateral lower extremities edema worse on the left than the right December 18, 2023 Patient is seen and examined at bedside this a.m. BP 90s over 56, heart rate 83 bpm, creatinine 0.7, BUN 18, bicarb 41. December 19, 2023 Patient was transferred to ICU because of increased work of breathing, confusion and increased hypotension. Yesterday SBP was around 90s, DBP around 50s. This morning her SBP was around high 80s low 90s. Her diuretics were stopped and she was given IV fluid. She was placed on BiPAP support. December 20, 2023 Patient is still maintained in ICU. For her borderline blood pressures were started on norepinephrine. Patient is extremely volume overloaded clinically with third spacing of fluid with generalized anasarca. Her creatinine and kidney function has been stable. She has not been receiving any diuretics because of low blood pressure. December 21, 2023 Hemoglobin 10.8, INR 2.8, BUN 18, creatinine 0.8, bicarb 40, sodium 135, potassium 3.4. pH 7.42, pCO2 58, pO2 100, Patient made good amount of urine yesterday. She is -4.4 L since yesterday. She responded well to IV diuretics Lasix 40 mg twice daily. She is maintained on low-dose of norepinephrine support to her blood pressure. Today her blood pressure is 90/50, MAP around 65 to 75 mmHg. Appropriate urine output. Renal function is stable. Bicarb is 37, yesterday was 40. She is on Diamox. December 22, 2023 Hemoglobin stable, INR is at goal, kidney function is stable, good urine output with IV diuretics. Off pressors, blood pressure is stable. December 23, 2023 Hemoglobin stable, INR is at goal, kidney function is stable, good urine output. Blood pressure is low normal today she is back on low-dose IV pressors. Assessment Acute hypoxic respiratory failure likely to be multifactorial Acute heart failure exacerbation secondary to HFrEF Permanent atrial fibrillation with controlled heart rate Status post mitral valve placement using mechanical valve on warfarin. History of stroke Multiple comorbid conditions including morbid obesity as well as hypertension and dyslipidemia Cardiomyopathy with EF around 40% Severe pulmonary hypertension Plan Patient started on p.o. diuretics. I have discontinued Lasix and instead start Bumex 1 mg p.o. reduce Aldactone to 12.5 mg daily. Hold lisinopril 2.5, Discontinue metolazone. Discontinue beta-elvis Continue aspirin 81 mg daily, atorvastatin 40 mg Monitor blood pressure, heart rate, telemetry, urine output. Continue anticoagulation with Coumadin, pharmacy dosing. INR 3.0. Goal INR 2.5-3.5. Objective - Vital Signs Vital signs: Vital Signs Temp 98.2 F 12/23/23 12:00 Pulse 74 12/23/23 13:00 Resp 14 12/23/23 13:00 BP 91/67 12/23/23 13:00 Pulse Ox 98 12/23/23 13:00 FiO2 40 12/23/23 07:45 Intake & Output 12/22/23 12/23/23 12/23/23 18:59 06:59 18:59 Intake Total 1033.811 530 829.136 Output Total 2795 660 300 Balance -1761.189 -130 529.136 Weight 143.1 kg Intake: IV 300 280 680 0.9 260 220 140 Invasive Line 6 10 30 20 Invasive Line 8 30 30 20 Vancomycin 2,250 mg In 500 Sodium Chloride 0.9% 500 ml 500 ml @ 167 mls/hr IVPB Q16H [facility] Rx#: [id number] Intake, IV Titration 259.811 149.136 Amount Norepinephrine 4 mg In 259.811 149.136 Sodium Chloride 0.9% 250 ml @ 0.03 MCG/KG/MIN 17. 431 mls/hr IV .[id number] [facility] Rx#:[id number] Oral 474 250 Output: Urine 2795 660 300 Other: Voiding Method Indwelling Catheter Indwelling Catheter Indwelling Catheter # Bowel Movements 0 - Labs CBC & Chem 7: 12/23/23 03:04 12/23/23 13:32 Labs: Abnormal Lab Results - Last 24 Hours (Table) 12/23/23 12/23/23 12/23/23 Range/Units 03:04 03:04 03:04 RBC 3.35 L (3.80-5.40) m/uL Hgb 10.4 L (11.4-16.0) gm/dL Hct 33.6 L (34.0-46.0) % MCV 100.2 H (80.0-100.0) fL MCHC 30.9 L (31.0-37.0) g/dL PT 30.8 H (10.0-12.5) sec INR 3.1 H (<1.2) Sodium 134 L (137-145) mmol/L Potassium 3.2 L (3.5-5.1) mmol/L Carbon Dioxide 33 H (22-30) mmol/L Glucose 133 H (74-99) mg/dL Microbiology - Last 24 Hours (Table) 12/19/23 13:40 Anaerobic Culture - Final Wrist - Right 12/17/23 13:07 Blood Culture - Final Blood 12/20/23 09:56 Blood Culture - Preliminary Blood
[2023-12-23] MEDS: POTASSIUM BICARBONATE/CIT AC 20 MEQ TABLET.EFF NG-TUBE SCH (16:04)
--- NOTE | 2023-12-24 01:09 | P.PN ---
Subjective Progress Note Date: 12/23/23 73-year-old female was sent in because of decreased level of consciousness with concerns of aspiration. Patient was also short of breath patient is found to be in hypercapnic respiratory failure with pH of 7.3 and pCO2 of 90 and pO2 of around 70. Patient does have history of obstructive sleep apnea morbidly obese female uses CPAP machine at nighttime. Patient does have multiple other medical problems including congestive heart failure with a EF of around 40 to 45% chest x-ray showing some pulmonary edema and BNP of 1700. Patient does not have any fever chills presently on BiPAP at this time. Patient is on Bumex 2 mg twice a day as an outpatient. Patient does have mild pedal edema on exam. Patient does use oxygen at baseline. Patient is mostly bedbound bilateral does have bilateral foot drop has history of cerebrovascular accident as well in the past 12/21/2023 --the patient is seen and evaluated with nursing staff at bedside; patient taken off the BiPAP and she is currently on 3 L of oxygen by nasal cannula. -- blood gas showed a pH of 7.42 with a pCO2 of 58 and pO2 of 102. As such, there is improvement in acid-base status. - Lasix was restarted by cardiology and the patient has been receiving Lasix 40 mg IV every 12 hours with excellent urine output. Continues to be on low-dose pressors and the patient is currently on norepinephrine at 0.02 mcg/kg/min. -- Serum bicarb is down to 37 with a chloride of 92 and a sodium is at 136. The white cell count is at 7.5 with hemoglobin 10.8 and a platelet count of 212. Remains on vancomycin. Remains on anticoagulation with warfarin. INR is therapeutic at 2.8. 12/22/2023 --the patient is seen for a follow-up. The patient is still producing excellent urine output. Fluid balance over the past 24 hours has been -2.4 L. The patient remains on low-dose norepinephrine at 0.05 mcg/kg/min. Overnight, she was on a BiPAP pressure of 16/6 and currently she is on 2 L of oxygen by nasal cannula. Doing well. Serum bicarb is currently at 38. Potassium is at 3.5 post replacement. INR is at 2.9. White cell count is 7.9 with a hemoglobin 10.5. No signs of any CO2 narcosis. Continue anticoagulation with warfarin. Continue vancomycin. Patient was switched to oral Bumex and IV Lasix has been discontinued. Lower extremity edema is also improving. patient with right wrist cellulitis at site of previous IV now with evidence of some purulent drainage and surrounding redness likely from gram-positive skin camille -blood and local culture has been requested, blood culture pending local culture with MRSA blood cultures so far negative -patient did have improvement of the right wrist, to continue with vancomycin pharmacy to dose and will transition to oral antibiotics on discharge 12/23/2023 the patient is seen and evaluated in room bedside, remains in ICU. Norepinephrine was discontinued this morning. Awake and alert and communicating. She is on oxygen and she is on 3 L/min nasal cannula. Patient remains on IV antibiotics for wound and cellulitis of the right upper extremity improving as the patient was cultured to have MRSA and the patient remains on vancomycin. No other significant events overnight. She does have some residual edema lower extremities bilaterally. Labs from today show a white cell count of 6.9, hemoglobin 10.4 and a platelet count of 222. Serum bicarb is at 33 and a BUN 16 with a creatinine of 0.74 and sodium levels at 03/13/2019 potassium level needs to be replaced. Objective - Vital Signs Vital signs: Vital Signs Temp 98.3 F 12/23/23 08:00 Pulse 83 12/23/23 08:08 Resp 14 12/23/23 08:00 BP 101/45 12/23/23 08:00 Pulse Ox 100 12/23/23 08:00 FiO2 40 12/23/23 07:45 Intake & Output 12/22/23 12/23/23 12/23/23 18:59 06:59 18:59 Intake Total 1033.811 530 189.136 Output Total 2795 660 30 Balance -1761.189 -130 159.136 Intake: IV 300 280 40 0.9 260 220 20 Invasive Line 6 10 30 10 Invasive Line 8 30 30 10 Intake, IV Titration 259.811 149.136 Amount Norepinephrine 4 mg In 259.811 149.136 Sodium Chloride 0.9% 250 ml @ 0.03 MCG/KG/MIN 17. 431 mls/hr IV .[id number] [facility] Rx#:[id number] Oral 474 250 Output: Urine 2795 660 30 Other: Voiding Method Indwelling Catheter Indwelling Catheter - Exam GENERAL: Morbidly obese drowsy oriented x 3, patient is on nasal cannula. BiPAP HEENT: Pupils are round and equally reacting to light. EOMI. No scleral icterus. No conjunctival pallor. Normocephalic, atraumatic. No pharyngeal erythema. No thyromegaly. CARDIOVASCULAR: S1 and S2 present. No murmurs, rubs, or gallops. PULMONARY: Good air entry with mild expiratory wheezing on exam ABDOMEN: Soft, nontender, nondistended, normoactive bowel sounds. No palpable organomegaly. MUSCULOSKELETAL: No joint swelling or deformity. EXTREMITIES: No cyanosis, clubbing, or my lower EXTR bilateral pedal edema NEUROLOGICAL: Gross neurological examination did not reveal any focal deficits. Has old left arm contractures and left foot drop. SKIN: No rashes. Right wrist open wound with purulent drainage and surrounding cellulitis - Labs CBC & Chem 7: 12/23/23 03:04 12/23/23 18:25 Labs: Abnormal Lab Results - Last 24 Hours (Table) 12/23/23 12/23/23 12/23/23 Range/Units 03:04 03:04 03:04 RBC 3.35 L (3.80-5.40) m/uL Hgb 10.4 L (11.4-16.0) gm/dL Hct 33.6 L (34.0-46.0) % MCV 100.2 H (80.0-100.0) fL MCHC 30.9 L (31.0-37.0) g/dL PT 30.8 H (10.0-12.5) sec INR 3.1 H (<1.2) Sodium 134 L (137-145) mmol/L Potassium 3.2 L (3.5-5.1) mmol/L Carbon Dioxide 33 H (22-30) mmol/L Glucose 133 H (74-99) mg/dL Microbiology - Last 24 Hours (Table) 12/17/23 13:07 Blood Culture - Final Blood 12/20/23 09:56 Blood Culture - Preliminary Blood Assessment and Plan Assessment: -Acute hypoxic and hypercapnic respiratory failure on chronic hypercapnic respiratory failure and is is probably because of obesity sleep apnea and mild bronchitis may have contributed to CO2 retention Batient is on BiPAP at HS -Acute hypoxic respiratory failure secondary to congestive heart failure chronic systolic function EF of around 40 to 45. -Pulmonary hypertension -Hypovolemic shock currently on levophed and in the ICU. 2L fluid bolus given. BPs better today. -Hypokalemia from diuresis improved. -Altered mental status secondary to acute metabolic encephalopathy and elevated CO2 levels. -Respiratory acidosis secondary to CO2 retention -Right wrist cellulitis and purulent wound from IV site with cultures showing presumptive MRSA. Now on IV vancomycin and ID consultation. 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 -History of CVA in the past -Seizure disorder for which patient is on Keppra which will be resumed -Hyperlipidemia -Obesity and sleep apnea -Chronic medical debility -Foot drop -Peripheral neuropathy for which patient is on gabapentin which will be resumed DVT prophylaxis: Warfarin GI prophylaxis Full Code Plan Keppra has been increased by neurology Patient has received 2L fluid bolus and started on levophed Will need to hold the bumex, metolozone Aldactone decreased Hold lisinopril Monitor blood pressures Continue BiPAP Blood cultures pending, wound culture growing presumptive MRSA ID following started on IV vancomycin CBC BMP in AM
[2023-12-24] MEDS: VANCOMYCIN TROUGH DUE 1 EACH MISC MISCELLANE ONE (01:42)
[2023-12-24 06:10] LABS: INR 3.1 (<1.2); Prothrombin Time 30.3 sec (10.0-12.5)
[2023-12-24 06:31] LABS: African American GFR (CKD) 78 (>60 ml/min/1.73 sqM); Non-African American GFR(CKD) 67 (>60 ml/min/1.73 sqM)
--- NOTE | 2023-12-24 07:43 | P.PN ---
Subjective Progress Note Date: 12/24/23 PROGRESS NOTE The patient is a 73-year-old female who presented on December 12 with symptoms progressive dyspnea, confusion and respiratory failure. She has a known history of mitral valve replacement. She has been in atrial fibrillation. She had episode of hypotension that improved. She has a known history of moderate cardiomyopathy with an ejection fraction of 40% with severe tricuspid regurgitation and mild pulmonary hypertension. She is on no vasopressors at this time. Feeling better. In atrial fibrillation with controlled ventricular response. She denies any chest discomfort, dizziness or palpitations. She has no nausea. She is in active and quite debilitated. Her urinary output has been stable. She has left-sided weakness related to prior CVA. Medications: Aspirin, Lipitor 40 mg daily, Bumex 1 mg daily, Neurontin, Vimpat 50 mg twice a day, Keppra 1500 mg twice a day, sertraline, spironolactone 12.5 mg daily, warfarin PHYSICAL EXAMINATION: Blood pressure 73-year-old female, alert oriented, morbidly obese. Blood pressure 117/70 heart rate 95 LUNGS: Clear to auscultation HEART: Irregular rate and rhythm, metallic S1, S2. No S3. Systolic ejection murmur ABDOMEN: Soft, nontender, no organomegaly, obese EXTREMETIES: +1-2 edema LAB: INR 3.1. Hemoglobin yesterday 10.4. BUN 16, creatinine 0.74 IMPRESSION: 1. Respiratory failure, improving, multifactorial 2. Moderate impairment in the left ventricular systolic function 3. Status post mitral valve replacement 4. Persistent atrial fibrillation, anticoagulated 5. Morbid obesity 6. History of hyperlipidemia 7. Severe tricuspid regurgitation 8. History of CVA PLAN: 1. Continue present therapy 2. Follow renal functions 3. Physical therapy 4. Depending on her progress further recommendations will be made Objective - Vital Signs Vital signs: Vital Signs Temp 98.2 F 12/24/23 04:00 Pulse 85 12/24/23 04:00 Resp 20 12/24/23 04:00 BP 92/45 12/24/23 04:00 Pulse Ox 97 12/24/23 04:00 FiO2 40 12/24/23 05:19 Intake & Output 12/23/23 12/24/23 12/24/23 18:59 06:59 18:59 Intake Total 1066.136 40 Output Total 400 475 Balance 666.136 -435 Weight 143.1 kg Intake: IV 680 40 0.9 140 Invasive Line 6 20 20 Invasive Line 8 20 20 Vancomycin 2,250 mg In 500 Sodium Chloride 0.9% 500 ml 500 ml @ 167 mls/hr IVPB Q16H [facility] Rx#: [id number] Intake, IV Titration 149.136 Amount Norepinephrine 4 mg In 149.136 Sodium Chloride 0.9% 250 ml @ 0.03 MCG/KG/MIN 17. 431 mls/hr IV .[id number] [facility] Rx#:[id number] Oral 237 Output: Urine 400 475 Other: Voiding Method Indwelling Catheter Indwelling Catheter # Bowel Movements 0 - Labs CBC & Chem 7: 12/23/23 03:04 12/24/23 05:38 Labs: Abnormal Lab Results - Last 24 Hours (Table) 12/23/23 12/24/23 Range/Units 22:49 05:38 PT 30.3 H (10.0-12.5) sec INR 3.1 H (<1.2) Vancomycin Trough 49.0 H* ug/mL Microbiology - Last 24 Hours (Table) 12/20/23 09:56 Blood Culture - Preliminary Blood 12/19/23 13:40 Anaerobic Culture - Final Wrist - Right
[2023-12-24] MEDS ORDERED: VANCOMYCIN IV PER PHARMACY 1 EACH MISC MISCELLANE PRN (08:22)
[2023-12-24] MEDS: SPIRONOLACTONE 25 MG TAB PO SCH (09:41)
--- NOTE | 2023-12-24 10:08 | XR ---
EXAMINATION TYPE: XR chest 1V portable DATE OF EXAM: 12/24/2023 9:57 AM COMPARISON: None. CLINICAL INDICATION: Female, 73 years old with history of CHF, TECHNIQUE: XR chest 1V portable view(s) obtained. FINDINGS: The heart size is enlarged. The pulmonary vasculature is normal. No suspicious consolidation is evident. Sternotomy wires present IMPRESSION: 1. No acute pulmonary process. [facility], , 12/24/2023 10:06 AM
--- NOTE | 2023-12-24 12:07 | P.PN ---
Subjective Progress Note Date: 12/24/23 Principal diagnosis: Reason for follow-up is right wrist IV site cellulitis/MRSA Patient is a 73-year-old female with a past medical history significant for atrial fibrillation coronary disease CVA TIA hyperlipidemia pneumonia seizure disorder patient initially presented to hospital for evaluation of increasing shortness of breath subsequently transferred to ICU because of hypotension also noted to have right wrist area wound with some purulent drainage concerning for previous IV site cellulitis and infection. On today's evaluation that is 12/24/2023,the patient denies any fever or any chills, patient is breathing comfortably on 2 L current oxygen the patient d enies chest pain shortness of breath and no significant cough, patient denies abdominal pain, no nausea vomiting or diarrhea. Patient did have INR of 3.1 creatinine 0.87 white count of 449 Objective - Vital Signs Vital signs: Vital Signs Temp 97.9 F 12/24/23 08:00 Pulse 89 12/24/23 08:04 Resp 24 12/24/23 08:00 BP 92/45 12/24/23 04:00 Pulse Ox 98 12/24/23 08:04 FiO2 40 12/24/23 05:19 Intake & Output 12/23/23 12/24/23 12/24/23 18:59 06:59 18:59 Intake Total 1066.136 40 Output Total 400 475 125 Balance 666.136 -435 -125 Weight 143.1 kg Intake: IV 680 40 0.9 140 Invasive Line 6 20 20 Invasive Line 8 20 20 Vancomycin 2,250 mg In 500 Sodium Chloride 0.9% 500 ml 500 ml @ 167 mls/hr IVPB Q16H [facility] Rx#: [id number] Intake, IV Titration 149.136 Amount Norepinephrine 4 mg In 149.136 Sodium Chloride 0.9% 250 ml @ 0.03 MCG/KG/MIN 17. 431 mls/hr IV .[id number] [facility] Rx#:[id number] Oral 237 Output: Urine 400 475 125 Uretheral (Rodríguez) 125 Other: Voiding Method Indwelling Catheter Indwelling Catheter Indwelling Catheter # Bowel Movements 0 - Exam GENERAL DESCRIPTION: An elderly female lying in bed in no distress RESPIRATORY SYSTEM: Unlabored breathing , decreased breath sounds at bases HEART: S1 S2 regular rate and rhythm , ABDOMEN: Soft , no tenderness EXTREMITIES: Right wrist swelling redness has decreased no further purulent drainage - Labs CBC & Chem 7: 12/23/23 03:04 12/24/23 05:38 Labs: Abnormal Lab Results - Last 24 Hours (Table) 12/23/23 12/24/23 Range/Units 22:49 05:38 PT 30.3 H (10.0-12.5) sec INR 3.1 H (<1.2) Vancomycin Trough 49.0 H* ug/mL Microbiology - Last 24 Hours (Table) 12/20/23 09:56 Blood Culture - Preliminary Blood 12/19/23 13:40 Anaerobic Culture - Final Wrist - Right Assessment and Plan (1) Cellulitis of right wrist Current Visit: Yes Status: Acute Code(s): L03.113 - CELLULITIS OF RIGHT UPPER LIMB SNOMED Code(s): 30551746029220227 (2) Phlebitis Current Visit: Yes Status: Acute Code(s): I80.9 - PHLEBITIS AND THROMBOPHLEBITIS OF UNSPECIFIED SITE SNOMED Code(s): 93206240 (3) MRSA (methicillin resistant Staphylococcus aureus) infection Current Visit: Yes Status: Acute Code(s): A49.02 - METHICILLIN RESIS STAPH INFECTION, UNSP SITE SNOMED Code(s): 761906549 Plan: 1patient with right wrist cellulitis at site of previous IV now with evidence of some purulent drainage and surrounding redness likely from gram-positive skin camille 2-blood and local culture has been requested, blood culture pending local culture with MRSA blood cultures so far negative 3-patient did have improvement of the right wrist swelling and redness did have elevated vancomycin trough and risk of nephrotoxicity though creatinine is normal we will discontinue vancomycin and a short course of oral doxycycline Dictation was produced using [employer] dictation software. please excuse any grammatical, word or spelling errors. Time with Patient: Less than 30
[2023-12-24 12:12] VITALS: BMI 50.9
--- NOTE | 2023-12-24 12:52 | P.PN ---
Subjective Progress Note Date: 12/24/23 Principal diagnosis: Acute on chronic hypoxic and hypercapnic respiratory failure, multifactorial 73-year-old female originally seen by Dr. Carroll in the emergency room, and then followed by Dr. Cárdenas afterwards. This is a 73-year-old female who presented with shortness of breath and difficulty breathing. The patient was seen in the emergency department, on December 12. The patient was very confused when she first came in, and was a very poor historian. The patient was initially placed on BiPAP, with settings of 16/6, and 40%. She remains on BiPAP. Patient has a history of atrial fibrillation, coronary disease, CVA, hyperlipidemia, pneumonia, and seizure disorder. The patient apparently also has a previous history of either mitral valve replacement or repair. She is a lifelong non- smoker. Laboratory data includes a white count 6.7, hemoglobin 10.5, hematocrit 34.5, and a platelet count of 103,000. PT was 17.3 with an INR of 1.7. Venous blood gas showed a pCO2 of 98, and a pH of 7.3. Sodium 136, potassium 4.3, chlorides 91, CO2 41, BUN and creatinine were 16 and 0.66. Glucose 159. Calcium 8.2. Troponin was 0.012. N-terminal proBNP was 1760. Chest x-ray showed sternal wires consistent with previous open heart surgery. Cardiac silhouette is enlarged. Costophrenic angles are blunted. This x-ray in my opinion is consistent with pulmonary vascular congestion. EKG shows evidence of atrial fibrillation. Progress note dated December 14, 2023. 73-year-old female seen in room 355. She was initially evaluated in the emergency department. She came in with confusion, and she was a very poor historian. The patient was placed on BiPAP, initially with settings of 16/6, 40%. She has a history of atrial fibrillation, coronary disease, CVA, hyp erlipidemia, pneumonia, and seizure disorder. Currently, the patient is on 3 L of oxygen. The BiPAP is in the room. Is not clear to me whether or not she used it last night. She does continue on IV heparin. Current labs include a white count 5.6, hemoglobin 9.6, hematocrit 30.7, and a platelet count of 146,000. PT was 22.7. INR 2.3. PTT was 67.4. Sodium 136, potassium 3.7, chloride 88, CO2 46, BUN 18, creatinine 0.66. Troponins were 0.015, and 0.015. Progress note dated December 15, 2023. 73-year-old female seen again in room 355. The patient is resting comfortably in bed. She denies any complaints. Currently, she is on 2 L of oxygen. She is getting IV heparin. She did use BiPAP last night, with settings of 16/6, and 40%. The patient continues in atrial fibrillation. Current labs include a PTT of 63.1. Sodium 136, potassium 3, chloride 89, CO2 42, BUN 18, creatinine 0.69. Calcium is 8.2. Progress note dated December 16, 2023. 73-year-old female again seen in room 355. The patient is not receiving any IV fluids. The patient is on O2 at 2 L. She did use her BiPAP device last night, with settings of 16/6, and 40%. The patient feels like she is improved. She d enies any worsening or more severe shortness of breath, cough, wheezing, chest tightness, or phlegm production. She also denies any chest pain or pressure. Current labs include a PT of 23.5 and an INR of 2.4. Sodium 137, potassium 3.3, chlorides 91, CO2 42, BUN 14, creatinine 0.73. Urine is negative. 12/17/2023, patient is being seen for a follow-up. This patient is awake and alert. She is currently off BiPAP. Overnight, she was on a BiPAP pressure of 16 over 6 cm of water and the patient is currently on 3 L of oxygen by nasal cannula. She is a [facility] resident and she is quite debilitated from the previous CVA and she does have left-sided hemiplegia and chronic lower extremity edema. She was taken off the IV Lasix and the patient is currently on Bumex 1 mg p.o. twice a day. The patient also had a echocardiogram that showed a ejection fraction of 40%. Severe RV dilatation with mild pulmonary hypertension. The patient also has a mechanical valve/mitral and the patient r emains on long-term anticoagulant with warfarin. INR is therapeutic at this point in time. Along with Bumex, the patient is on Zaroxolyn 5 mg p.o. on a daily basis. Rest of the medications remain unchanged. No significant shortness of breath. Repeat CAT scan of the brain done on 12/16/2023 showed stable lacunar infarcts involving the basal ganglia. No acute intracranial abnormalities noted. Other comorbidities include chronic atrial fibrillation, coronary artery disease, hyperlipidemia and seizure disorders. 12/18/2023, the patient is being seen for a follow-up. This morning, the patient is on 2 L of oxygen by nasal cannula. Overnight, the patient was on a BiPAP pressure of 16 over 4 cm of water with FiO2 of 40%. This fluid balance is -3 L over the past 24 hours and the patient continues to have edema lower extremities bilaterally. Remains on a combination of Bumex 1 mg p.o. twice daily, Aldactone 50 mg p.o. daily Zaroxolyn 5 mg p.o. daily. She was given Seroquel overnight a nd the patient feels to be slightly more sleepy than usual. Otherwise, no other significant events overnight. White cell count of 5.9 with a hemoglobin of 10.2 and a platelet count of 131. BUN is 18 with a creatinine 0.7 and sodium levels at 137 and the potassium level is 3.7. 12/19/2023, the patient got transferred to the intensive care and that the patient became lethargic and hypotensive. It was noted that the systolic blood pressure was running as low as 60 on the medical floor. Based on that, the patient got transferred to the intensive care unit. Diuretics were placed on hold and the patient was given a liter of bolus of IV fluids. Most recent blood pressure currently is 90/76. Urine output is still adequate. The patient was also placed on a BiPAP. This morning, she is on a BiPAP of 16 over 6 cm of water with an FiO2 of 50%. Blood gas was done in the ICU that showed a pH of 7.33 with a pCO2 of 80 and pO2 of 113. This was done while the patient was on a BiPAP. The white cell count is 7.7, it was 10.3 and a platelet count of 168. UA is negative. The rest of the electrolytes show a serum bicarb of 41, sodium levels of 135, potassium is at 3.7. BUN is at 21 with a creatinine of 1.01. Arousable, communicating. Denies having any chest pain. She has a area of skin ulcer that is developed at the level of her wrist with some minimal purulent drainage and erythema around it and the patient is currently on IV cefazolin. On 12/20/2023, the patient is awake. Overnight, the patient stayed on the BiPAP at a pressure of 16/6 with an FiO2 of 40% and currently the patient is on 4 L of oxygen by nasal cannula. The patient received IV fluids and the patient is curr ently at [facility]. Norepinephrine was started at a dose of 0.06 mcg/kg/min. Urine output is adequate. Fluid balance over the past 24 hours +180 cc. No signs of any CO2 narcosis. The patient was given 2 doses of Diamox yesterday 5 500 mg each and the serum bicarb today is at 40. Rest of the diuretics have been discontinued. The sodium is at 138, potassium is at 3.9, chloride is 92, WBC count is at 8 with a hemoglobin 10.7 and a platelet count of 248. Chest x-ray shows cardiomegaly and there is no other acute abnormalities noted. Profoundly weak. Awake and oriented and following commands and answering questions appropriately. She remains on IV cefazolin and the cellulitis in the right wr ist wound is showing some improvement without any active drainage. Appropriate dressing has been also applied. On 12/21/2023, the patient is awake and alert and she was taken off the BiPAP and she is currently on 3 L of oxygen by nasal cannula. A follow-up blood gas was done today and the blood gas showed a pH of 7.42 with a pCO2 of 58 and pO2 of 102. As such, there is improvement in acid-base status. Lasix was restarted by cardiology and the patient has been receiving Lasix 40 mg IV every 12 hours with excellent urine output. Fluid balance is -4.4 L over the past 24 hours. Continues to be on low-dose pressors and the patient is currently on norepinephrine at 0.02 mcg/kg/min. Overnight, the patient was on a bilevel pressure of 16/6 with an FiO2 40%. Noted the patient was receiving Diamox. Serum bicarb is down to 37 with a chloride of 92 and a sodium is at 136. The white cell count is at 7.5 with hemoglobin 10.8 and a platelet count of 212. Remains on vancomycin. Remains on anticoagulation with warfarin. INR is therapeutic at 2.8. On 12/22/2023, the patient is being seen for a follow-up. The patient is still producing excellent urine output. Fluid balance over the past 24 hours has been -2.4 L. The patient remains on low-dose norepinephrine at 0.05 mcg/kg/min. Ove kentrell, she was on a BiPAP pressure of 16/6 and currently she is on 2 L of oxygen by nasal cannula. Doing well. Serum bicarb is currently at 38. Potassium is at 3.5 post replacement. INR is at 2.9. White cell count is 7.9 with a hemoglobin 10.5. No signs of any CO2 narcosis. Continue anticoagulation with warfarin. Continue vancomycin. Patient was switched to oral Bumex and IV Lasix has been discontinued. Lower extremity edema is also improving. On 12/23/2023, the patient remains in negative fluid balance of 1.5 L. She is currently on Bumex 1 mg and Aldactone 25 mg. Norepinephrine was discontinued this morning. Awake and alert and communicating. She is on oxygen and she is on 3 L/min nasal cannula. Awake and alert. No signs of any encephalopathy. The wound and cellulitis of the right upper extremity improving as the patient was cultured to have MRSA and the patient remains on vancomycin. No other significant events overnight. She does have some residual edema lower e xtremities bilaterally. Labs from today show a white cell count of 6.9, hemoglobin 10.4 and a platelet count of 222. Serum bicarb is at 33 and a BUN 16 with a creatinine of 0.74 and sodium levels at 03/13/2019 potassium level needs to be replaced. No other complaints otherwise for now. Patient was seen today on 12/24/23, remains in the ICU, she is actually overflow in the ICU from 3 S. Patient is on 2 L nasal cannula, in no distress, responding well to diuretics, at night patient goes on BiPAP 16/6/40% remains on diuretics in the form of Bumex remains on vancomycin for her Staph aureus inf ection in the right wrist. Patient is waiting for a bed to be transferred out of the ICU, pulmonary moran she is responding well to diuretics, and her chest x- ray is showing definite improvement in her pulmonary edema. No cough no wheezing no shortness of breath and no chest pain labs today were reviewed she had relatively normal renal profile and she had INR of 3.1, remains on Coumadin Objective - Vital Signs Vital signs: Vital Signs Temp 97.9 F 12/24/23 08:00 Pulse 88 12/24/23 11:40 Resp 24 12/24/23 08:00 BP 92/45 12/24/23 04:00 Pulse Ox 98 12/24/23 08:04 FiO2 40 12/24/23 05:19 Intake & Output 12/23/23 12/24/23 12/24/23 18:59 06:59 18:59 Intake Total 1066.136 40 Output Total 400 475 125 Balance 666.136 -435 -125 Weight 143.1 kg 143.1 kg Intake: IV 680 40 0.9 140 Invasive Line 6 20 20 Invasive Line 8 20 20 Vancomycin 2,250 mg In 500 Sodium Chloride 0.9% 500 ml 500 ml @ 167 mls/hr IVPB Q16H [facility] Rx#: [id number] Intake, IV Titration 149.136 Amount Norepinephrine 4 mg In 149.136 Sodium Chloride 0.9% 250 ml @ 0.03 MCG/KG/MIN 17. 431 mls/hr IV .[id number] [facility] Rx#:[id number] Oral 237 Output: Urine 400 475 125 Uretheral (Rodríguez) 125 Other: Voiding Method Indwelling Catheter Indwelling Catheter Indwelling Catheter # Bowel Movements 0 - Exam Revealed 73-year-old white female, obese, on 2 L nasal cannula, not in distress. HEENT examination is grossly unremarkable. Neck supple. No neck masses no JVD no stridor. Cardiovascular examination distant S1-S2, no S3 gallop, no murmur. Lungs diminished breath at the bases no crackles rhonchi or wheezes Abdomen obese, soft nontender no guarding no rebound no guarding Extremities no clubbing edema or cyanosis, there is evidence of wound on her right wrist, covered with sterile dressing Skin no rashes Neurologic examination: Alert oriented x 3 no gross focal deficit, however the patient has chronic left-sided hemiplegia related to previous CVA Psychiatric: Normal mood affect and no mental status examination - Labs CBC & Chem 7: 12/23/23 03:04 12/24/23 05:38 Labs: Abnormal Lab Results - Last 24 Hours (Table) 12/23/23 12/24/23 Range/Units 22:49 05:38 PT 30.3 H (10.0-12.5) sec INR 3.1 H (<1.2) Vancomycin Trough 49.0 H* ug/mL Microbiology - Last 24 Hours (Table) 12/20/23 09:56 Blood Culture - Preliminary Blood 12/19/23 13:40 Anaerobic Culture - Final Wrist - Right Assessment and Plan Assessment: Impression : Acute on chronic hypoxic and hypercapnic respiratory failure secondary to acute systolic congestive heart failure with underlying obstructive sleep apnea syndrome/obesity hypoventilation syndrome Hypovolemic hypotension secondary to diuretics and aggressive diuresis as well as secondary to systolic dysfunction Systolic congestive heart failure, with an ejection fraction of 40 to 45%. Hypercarbic encephalopathy History of atrial fibrillation with a relatively controlled ventricular response rate, rate is under better control and the patient is on anticoagulation with warfarin History of mitral valve replacement. The patient has a mechanical valve and the patient has been maintained on long-term anticoagulation with warfarin and repeat INR is therapeutic History of hyperlipidemia. History of CVA. Repeat CAT scan of the brain on 12/16/2023 shows stable findings and the patient has chronic left sided hemiplegia History of tricuspid regurgitation. History of seizure disorder. Chronic lower extremity edema Right wrist, MRSA cellulitis Recommendation: Continue antibiotics/vancomycin Continue diuretics Bumex and Aldactone Continue BiPAP and titrate oxygen accordingly Continue anticoagulation therapy Transfer patient to cardiac floor once a bed is available Continue GI DVT prophylaxis Will continue to follow Time with Patient: Less than 30
--- NOTE | 2023-12-24 16:04 | P.PN ---
Subjective Progress Note Date: 12/24/23 Interval History: 73-year-old female was sent in because of decreased level of consciousness with concerns of aspiration. Patient was also short of breath patient is found to be in hypercapnic respiratory failure with pH of 7.3 and pCO2 of 90 and pO2 of around 70. Patient does have history of obstructive sleep apnea morbidly obese female uses CPAP machine at nighttime. Patient does have multiple other medical problems including congestive heart failure with a EF of around 40 to 45% chest x-ray showing some pulmonary edema and BNP of 1700. Patient does not have any fever chills presently on BiPAP at this time. Patient is on Bumex 2 mg twice a day as an outpatient. Patient does have mild pedal edema on exam. Patient does use oxygen at baseline. Patient is mostly bedbound bilateral does have bilateral foot drop has history of cerebrovascular accident as well in the past 12/21/2023 --the patient is seen and evaluated with nursing staff at bedside; patient taken off the BiPAP and she is currently on 3 L of oxygen by nasal cannula. -- blood gas showed a pH of 7.42 with a pCO2 of 58 and pO2 of 102. As such, there is improvement in acid-base status. - Lasix was restarted by cardiology and the patient has been receiving Lasix 40 mg IV every 12 hours with excellent urine output. Continues to be on low-dose pressors and the patient is currently on norepinephrine at 0.02 mcg/kg/min. -- Serum bicarb is down to 37 with a chloride of 92 and a sodium is at 136. The white cell count is at 7.5 with hemoglobin 10.8 and a platelet count of 212. Remains on vancomycin. Remains on anticoagulation with warfarin. INR is therapeutic at 2.8. 12/22/2023 --the patient is seen for a follow-up. The patient is still producing excellent urine output. Fluid balance over the past 24 hours has been -2.4 L. The patient remains on low-dose norepinephrine at 0.05 mcg/kg/min. Overnight, she was on a BiPAP pressure of 16/6 and currently she is on 2 L of oxygen by nasal cannula. Doing well. Serum bicarb is currently at 38. Potassium is at 3.5 post replacement. INR is at 2.9. White cell count is 7.9 with a hemoglobin 10.5. No signs of any CO2 narcosis. Continue anticoagulation with warfarin. Continue vancomycin. Patient was switched to oral Bumex and IV Lasix has been discontinued. Lower extremity edema is also improving. patient with right wrist cellulitis at site of previous IV now with evidence of some purulent drainage and surrounding redness likely from gram-positive skin camille -blood and local culture has been requested, blood culture pending local culture with MRSA blood cultures so far negative -patient did have improvement of the right wrist, to continue with vancomycin pharmacy to dose and will transition to oral antibiotics on discharge 12/23/2023 the patient is seen and evaluated in room bedside, remains in ICU. Norepinephrine was discontinued this morning. Awake and alert and communicating. She is on oxygen and she is on 3 L/min nasal cannula. Patient remains on IV antibiotics for wound and cellulitis of the right upper extremity improving as the patient was cultured to have MRSA and the patient remains on vancomycin. No other significant events overnight. She does have some residual edema lower extremities bilaterally. Labs from today show a white cell count of 6.9, hemoglobin 10.4 and a platelet count of 222. Serum bicarb is at 33 and a BUN 16 with a creatinine of 0.74 and sodium levels at 03/13/2019 potassium level needs to be replaced. 12/24/2023 Patient was seen and examined today. Currently in ICU, on 2 L of oxygen, no. Distress, responding well to oral diuretics, requiring nightly BiPAP. Currently on vancomycin for right wrist MRSA infection per infectious disease. Pulmonary following. On Coumadin, INR therapeutic, pharmacy dosing. Assessment and plan: Acute on chronic hypoxic hyperlipoidemia respiratory failure [facility]SE MANUEL is/[facility] - Acute on chronic systolic CHF with EF 40 to 45%: -Pulmonary hypertension -Hypovolemic shock currently on levophed and in the ICU. 2L fluid bolus given. BPs better today. -Hypokalemia from diuresis improved. -Acute metabolic encephalopathyaltered mental status secondary to acute metabolic encephalopathy and elevated CO2 levels. -Respiratory acidosis secondary to CO2 retention -Right wrist cellulitis and purulent wound from IV site with cultures showing presumptive MRSA. Now on IV vancomycin and ID consultation. 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 -History of CVA in the past -Seizure disorder for which patient is on Keppra which will be resumed -Hyperlipidemia -Obesity and sleep apnea -Chronic medical debility -Foot drop -Peripheral neuropathy for which patient is on gabapentin which will be resumed Plan: Currently on antibioticsvancomycin for right wrist cellulitis, infectious disease following Will continue diuresis with Bumex and Aldactone Wean off oxygen as tolerated, BiPAP Anticoagulated with warfarin ICU following Cardiology following Infectious disease following PT/OT evaluation DVT prophylaxis: Anticoagulated with warfarin. Monitor vital signs and labs Labs and medication were reviewed. Continue same treatment. Further recommendations as per clinical course of t he patient PHYSICAL EXAMINATION: GENERAL: The patient is A&O x3, NAD HEENT: EOMI, Sclerae anicteric, Moist Mucous membranes Neck: Supple, Non tender, No JVD PULMONARY: Equal breath souds B/L, No wheezing, No crackles. CARDIOVASCULAR: S1, S2 present. No murmurs, rubs, or gallops. ABDOMEN: Soft, nontender, nondistended, normoactive bowel sounds. No guarding or rebound tenderness. MUSCULOSKELETAL: + edema, No cyanosis. No clubbing. Normal ROM. Intact peripheral pulses. NEUROLOGICAL: CN 2-12 grossly intact. No FND Skin: No Rash REVIEW OF SYSTEMS: CONSTITUTIONAL: No fever or chills. CARDIOVASCULAR: No chest pain, palpitations or syncope. PULMONARY: No shortness of breath, no cough, sore throat. GASTROINTESTINAL: No nausea, vomiting, diarrhea, abdominal pain. : No Dysuria, urgency, frequency. Extremities: No edema. NEUROLOGICAL: No headaches, no weakness, or numbness Dictation was produced using [employer] dictation software. please excuse any grammatical, word or spelling errors. Objective - Vital Signs Vital signs: Vital Signs Temp 97.9 F 12/24/23 08:00 Pulse 87 12/24/23 15:05 Resp 20 12/24/23 12:00 BP 100/56 12/24/23 12:00 Pulse Ox 98 12/24/23 08:04 FiO2 40 12/24/23 05:19 Intake & Output 12/23/23 12/24/23 12/24/23 18:59 06:59 18:59 Intake Total 1066.136 40 Output Total 400 313 625 Balance 200.080 -084 -161 Weight 143.1 kg 143.1 kg Intake: IV 680 40 0.9 140 Invasive Line 6 20 20 Invasive Line 8 20 20 Vancomycin 2,250 mg In 500 Sodium Chloride 0.9% 500 ml 500 ml @ 167 mls/hr IVPB Q16H [facility] Rx#: [id number] Intake, IV Titration 149.136 Amount Norepinephrine 4 mg In 149.136 Sodium Chloride 0.9% 250 ml @ 0.03 MCG/KG/MIN 17. 431 mls/hr IV .[id number] [facility] Rx#:[id number] Oral 237 Output: Urine 400 475 625 Uretheral (Rodríguez) 625 Other: Voiding Method Indwelling Catheter Indwelling Catheter Indwelling Catheter # Bowel Movements 0 - Labs CBC & Chem 7: 12/23/23 03:04 12/24/23 05:38 Labs: Abnormal Lab Results - Last 24 Hours (Table) 12/23/23 12/24/23 Range/Units 22:49 05:38 PT 30.3 H (10.0-12.5) sec INR 3.1 H (<1.2) Vancomycin Trough 49.0 H* ug/mL Microbiology - Last 24 Hours (Table) 12/20/23 09:56 Blood Culture - Preliminary Blood
[2023-12-24 17:45] LABS: Glucose,Whole Blood 123 mg/dL (70-110)
[2023-12-24] MEDS: DOXYCYCLINE 100 MG CAP PO SCH (20:16)
[2023-12-25 05:26] VITALS: RESP 18
[2023-12-25 06:30] LABS: HCT 30.4 % (34.0-46.0); HGB 9.4 gm/dL (11.4-16.0); MCH 30.6 pg (25.0-35.0); MCHC 30.8 g/dL (31.0-37.0); MCV 99.1 fL (80.0-100.0); Macrocytosis Slight; Mean Platelet Volume 7.9; Platelet Count 199 k/uL (150-450); RBC 3.06 m/uL (3.80-5.40); RDW 14.5 % (11.5-15.5); WBC 6.6 k/uL (3.8-10.6)
[2023-12-25 06:39] LABS: INR 3.4 (<1.2); Prothrombin Time 33.1 sec (10.0-12.5)
[2023-12-25 06:45] LABS: African American GFR (CKD) 86 (>60 ml/min/1.73 sqM); Anion Gap 4 mmol/L; Blood Urea Nitrogen 18 mg/dL (7-17); Calcium 8.4 mg/dL (8.4-10.2); Carbon Dioxide 31 mmol/L (22-30); Chloride 98 mmol/L (98-107); Glucose 115 mg/dL (74-99); Non-African American GFR(CKD) 75 (>60 ml/min/1.73 sqM); Potassium 3.1 mmol/L (3.5-5.1); Sodium 133 mmol/L (137-145)
--- NOTE | 2023-12-25 07:44 | P.PN ---
Subjective Progress Note Date: 12/25/23 PROGRESS NOTE The patient is a 73-year-old female who presented on December 12 with symptoms progressive dyspnea, confusion and respiratory failure. She has a known history of mitral valve replacement. She has been in atrial fibrillation. She had episode of hypotension that improved. She has a known history of moderate cardiomyopathy with an ejection fraction of 40% with severe tricuspid regurgitation and mild pulmonary hypertension. She is on no vasopressors at this time. Feeling better. In atrial fibrillation with controlled ventricular response. She denies any chest discomfort, dizziness or palpitations. She has no nausea. She is in active and quite debilitated. Her urinary output has been stable. She has left-sided weakness related to prior CVA. December 24: The patient is feeling well this morning, she denies any chest discomfort, dizziness or palpitations. She continues to be in atrial fibrillation with controlled ventricular response. Hemodynamically she is stable. She denies any significant symptoms. She is very limited in her physical activity but unchanged. Medications: Aspirin, Lipitor 40 mg daily, Bumex 1 mg daily, Neurontin, Vimpat 50 mg twice a day, Keppra 1500 mg twice a day, sertraline, spironolactone 12.5 mg daily, warfarin PHYSICAL EXAMINATION: Blood pressure 73-year-old female, alert oriented, morbidly obese. Blood pressure 107/60 heart rate 84 LUNGS: Clear to auscultation HEART: Irregular rate and rhythm, metallic S1, S2. No S3. Systolic ejection murmur ABDOMEN: Soft, nontender, no organomegaly, obese EXTREMETIES: +1-2 edema LAB: INR 3.4. Hemoglobin 9.4. BUN 18, creatinine 0.80, potassium 3.1 IMPRESSION: 1. Respiratory failure, improving, multifactorial 2. Moderate impairment in the left ventricular systolic function 3. Status post mitral valve replacement 4. Persistent atrial fibrillation, anticoagulated, rate controlled 5. Morbid obesity 6. History of hyperlipidemia 7. Severe tricuspid regurgitation 8. History of CVA PLAN: 1. Continue present therapy 2. Follow renal functions 3. Physical therapy 4. Probable discharge soon for rehab Objective - Vital Signs Vital signs: Vital Signs Temp 98.5 F 12/25/23 04:00 Pulse 82 12/25/23 04:00 Resp 18 12/25/23 04:00 BP 96/61 12/25/23 04:00 Pulse Ox 98 12/25/23 04:00 FiO2 40 12/25/23 05:14 Intake & Output 12/24/23 12/25/23 12/25/23 18:59 06:59 18:59 Intake Total 150 Output Total 760 325 Balance -760 -175 Weight 143.1 kg 149.2 kg Intake: Oral 150 Output: Urine 760 325 Uretheral (Rodríguez) 760 Other: Voiding Method Indwelling Catheter Indwelling Catheter # Bowel Movements 1 - Labs CBC & Chem 7: 12/25/23 05:48 12/25/23 05:41 Labs: Abnormal Lab Results - Last 24 Hours (Table) 12/24/23 12/25/23 12/25/23 Range/Units 17:44 05:41 05:48 RBC (3.80-5.40) m/uL Hgb (11.4-16.0) gm/dL Hct (34.0-46.0) % MCHC (31.0-37.0) g/dL PT 33.1 H (10.0-12.5) sec INR 3.4 H (<1.2) Sodium 133 L (137-145) mmol/L Potassium 3.1 L (3.5-5.1) mmol/L Carbon Dioxide 31 H (22-30) mmol/L BUN 18 H (7-17) mg/dL Glucose 115 H (74-99) mg/dL POC Glucose (mg/dL) 123 H (70-110) mg/dL 12/25/23 Range/Units 05:48 RBC 3.06 L (3.80-5.40) m/uL Hgb 9.4 L (11.4-16.0) gm/dL Hct 30.4 L (34.0-46.0) % MCHC 30.8 L (31.0-37.0) g/dL PT (10.0-12.5) sec INR (<1.2) Sodium (137-145) mmol/L Potassium (3.5-5.1) mmol/L Carbon Dioxide (22-30) mmol/L BUN (7-17) mg/dL Glucose (74-99) mg/dL POC Glucose (mg/dL) (70-110) mg/dL
[2023-12-25] MEDS: POTASSIUM BICARBONATE/CIT AC 20 MEQ TABLET.EFF NG-TUBE SCH (10:02)
--- NOTE | 2023-12-25 11:28 | P.PN ---
Subjective Progress Note Date: 12/25/23 Principal diagnosis: Acute on chronic hypoxic and hypercapnic respiratory failure, multifactorial 73-year-old female originally seen by Dr. Carroll in the emergency room, and then followed by Dr. Cárdenas afterwards. This is a 73-year-old female who presented with shortness of breath and difficulty breathing. The patient was seen in the emergency department, on December 12. The patient was very confused when she first came in, and was a very poor historian. The patient was initially placed on BiPAP, with settings of 16/6, and 40%. She remains on BiPAP. Patient has a history of atrial fibrillation, coronary disease, CVA, hyperlipidemia, pneumonia, and seizure disorder. The patient apparently also has a previous history of either mitral valve replacement or repair. She is a lifelong non- smoker. Laboratory data includes a white count 6.7, hemoglobin 10.5, hematocrit 34.5, and a platelet count of 103,000. PT was 17.3 with an INR of 1.7. Venous blood gas showed a pCO2 of 98, and a pH of 7.3. Sodium 136, potassium 4.3, chlorides 91, CO2 41, BUN and creatinine were 16 and 0.66. Glucose 159. Calcium 8.2. Troponin was 0.012. N-terminal proBNP was 1760. Chest x-ray showed sternal wires consistent with previous open heart surgery. Cardiac silhouette is enlarged. Costophrenic angles are blunted. This x-ray in my opinion is consistent with pulmonary vascular congestion. EKG shows evidence of atrial fibrillation. Progress note dated December 14, 2023. 73-year-old female seen in room 355. She was initially evaluated in the emergency department. She came in with confusion, and she was a very poor historian. The patient was placed on BiPAP, initially with settings of 16/6, 40%. She has a history of atrial fibrillation, coronary disease, CVA, hyp erlipidemia, pneumonia, and seizure disorder. Currently, the patient is on 3 L of oxygen. The BiPAP is in the room. Is not clear to me whether or not she used it last night. She does continue on IV heparin. Current labs include a white count 5.6, hemoglobin 9.6, hematocrit 30.7, and a platelet count of 146,000. PT was 22.7. INR 2.3. PTT was 67.4. Sodium 136, potassium 3.7, chloride 88, CO2 46, BUN 18, creatinine 0.66. Troponins were 0.015, and 0.015. Progress note dated December 15, 2023. 73-year-old female seen again in room 355. The patient is resting comfortably in bed. She denies any complaints. Currently, she is on 2 L of oxygen. She is getting IV heparin. She did use BiPAP last night, with settings of 16/6, and 40%. The patient continues in atrial fibrillation. Current labs include a PTT of 63.1. Sodium 136, potassium 3, chloride 89, CO2 42, BUN 18, creatinine 0.69. Calcium is 8.2. Progress note dated December 16, 2023. 73-year-old female again seen in room 355. The patient is not receiving any IV fluids. The patient is on O2 at 2 L. She did use her BiPAP device last night, with settings of 16/6, and 40%. The patient feels like she is improved. She d enies any worsening or more severe shortness of breath, cough, wheezing, chest tightness, or phlegm production. She also denies any chest pain or pressure. Current labs include a PT of 23.5 and an INR of 2.4. Sodium 137, potassium 3.3, chlorides 91, CO2 42, BUN 14, creatinine 0.73. Urine is negative. 12/17/2023, patient is being seen for a follow-up. This patient is awake and alert. She is currently off BiPAP. Overnight, she was on a BiPAP pressure of 16 over 6 cm of water and the patient is currently on 3 L of oxygen by nasal cannula. 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 She was taken off the IV Lasix and the patient is currently on Bumex 1 mg p.o. twice a day. The patient also had a echocardiogram that showed a ejection fraction of 40%. Severe RV dilatation with mild pulmonary hypertension. The patient also has a mechanical valve/mitral and the patient r emains on long-term anticoagulant with warfarin. INR is therapeutic at this point in time. Along with Bumex, the patient is on Zaroxolyn 5 mg p.o. on a daily basis. Rest of the medications remain unchanged. No significant shortness of breath. Repeat CAT scan of the brain done on 12/16/2023 showed stable lacunar infarcts involving the basal ganglia. No acute intracranial abnormalities noted. Other comorbidities include chronic atrial fibrillation, coronary artery disease, hyperlipidemia and seizure disorders. 12/18/2023, the patient is being seen for a follow-up. This morning, the patient is on 2 L of oxygen by nasal cannula. Overnight, the patient was on a BiPAP pressure of 16 over 4 cm of water with FiO2 of 40%. This fluid balance is -3 L over the past 24 hours and the patient continues to have edema lower extremities bilaterally. Remains on a combination of Bumex 1 mg p.o. twice daily, Aldactone 50 mg p.o. daily Zaroxolyn 5 mg p.o. daily. She was given Seroquel overnight a nd the patient feels to be slightly more sleepy than usual. Otherwise, no other significant events overnight. White cell count of 5.9 with a hemoglobin of 10.2 and a platelet count of 131. BUN is 18 with a creatinine 0.7 and sodium levels at 137 and the potassium level is 3.7. 12/19/2023, the patient got transferred to the intensive care and that the patient became lethargic and hypotensive. It was noted that the systolic blood pressure was running as low as 60 on the medical floor. Based on that, the patient got transferred to the intensive care unit. Diuretics were placed on hold and the patient was given a liter of bolus of IV fluids. Most recent blood pressure currently is 90/76. Urine output is still adequate. The patient was also placed on a BiPAP. This morning, she is on a BiPAP of 16 over 6 cm of water with an FiO2 of 50%. Blood gas was done in the ICU that showed a pH of 7.33 with a pCO2 of 80 and pO2 of 113. This was done while the patient was on a BiPAP. The white cell count is 7.7, it was 10.3 and a platelet count of 168. UA is negative. The rest of the electrolytes show a serum bicarb of 41, sodium levels of 135, potassium is at 3.7. BUN is at 21 with a creatinine of 1.01. Arousable, communicating. Denies having any chest pain. She has a area of skin ulcer that is developed at the level of her wrist with some minimal purulent drainage and erythema around it and the patient is currently on IV cefazolin. On 12/20/2023, the patient is awake. Overnight, the patient stayed on the BiPAP at a pressure of 16/6 with an FiO2 of 40% and currently the patient is on 4 L of oxygen by nasal cannula. The patient received IV fluids and the patient is curr ently at [facility]. Norepinephrine was started at a dose of 0.06 mcg/kg/min. Urine output is adequate. Fluid balance over the past 24 hours +180 cc. No signs of any CO2 narcosis. The patient was given 2 doses of Diamox yesterday 5 500 mg each and the serum bicarb today is at 40. Rest of the diuretics have been discontinued. The sodium is at 138, potassium is at 3.9, chloride is 92, WBC count is at 8 with a hemoglobin 10.7 and a platelet count of 248. Chest x-ray shows cardiomegaly and there is no other acute abnormalities noted. Profoundly weak. Awake and oriented and following commands and answering questions appropriately. She remains on IV cefazolin and the cellulitis in the right wr ist wound is showing some improvement without any active drainage. Appropriate dressing has been also applied. On 12/21/2023, the patient is awake and alert and she was taken off the BiPAP and she is currently on 3 L of oxygen by nasal cannula. A follow-up blood gas was done today and the blood gas showed a pH of 7.42 with a pCO2 of 58 and pO2 of 102. As such, there is improvement in acid-base status. Lasix was restarted by cardiology and the patient has been receiving Lasix 40 mg IV every 12 hours with excellent urine output. Fluid balance is -4.4 L over the past 24 hours. Continues to be on low-dose pressors and the patient is currently on norepinephrine at 0.02 mcg/kg/min. Overnight, the patient was on a bilevel pressure of 16/6 with an FiO2 40%. Noted the patient was receiving Diamox. Serum bicarb is down to 37 with a chloride of 92 and a sodium is at 136. The white cell count is at 7.5 with hemoglobin 10.8 and a platelet count of 212. Remains on vancomycin. Remains on anticoagulation with warfarin. INR is therapeutic at 2.8. On 12/22/2023, the patient is being seen for a follow-up. The patient is still producing excellent urine output. Fluid balance over the past 24 hours has been -2.4 L. The patient remains on low-dose norepinephrine at 0.05 mcg/kg/min. Ove kentrell, she was on a BiPAP pressure of 16/6 and currently she is on 2 L of oxygen by nasal cannula. Doing well. Serum bicarb is currently at 38. Potassium is at 3.5 post replacement. INR is at 2.9. White cell count is 7.9 with a hemoglobin 10.5. No signs of any CO2 narcosis. Continue anticoagulation with warfarin. Continue vancomycin. Patient was switched to oral Bumex and IV Lasix has been discontinued. Lower extremity edema is also improving. On 12/23/2023, the patient remains in negative fluid balance of 1.5 L. She is currently on Bumex 1 mg and Aldactone 25 mg. Norepinephrine was discontinued this morning. Awake and alert and communicating. She is on oxygen and she is on 3 L/min nasal cannula. Awake and alert. No signs of any encephalopathy. The wound and cellulitis of the right upper extremity improving as the patient was cultured to have MRSA and the patient remains on vancomycin. No other significant events overnight. She does have some residual edema lower e xtremities bilaterally. Labs from today show a white cell count of 6.9, hemoglobin 10.4 and a platelet count of 222. Serum bicarb is at 33 and a BUN 16 with a creatinine of 0.74 and sodium levels at 03/13/2019 potassium level needs to be replaced. No other complaints otherwise for now. Patient was seen today on 12/24/23, remains in the ICU, she is actually overflow in the ICU from 3 S. Patient is on 2 L nasal cannula, in no distress, responding well to diuretics, at night patient goes on BiPAP 16/6/40% remains on diuretics in the form of Bumex remains on vancomycin for her Staph aureus inf ection in the right wrist. Patient is waiting for a bed to be transferred out of the ICU, pulmonary moran she is responding well to diuretics, and her chest x- ray is showing definite improvement in her pulmonary edema. No cough no wheezing no shortness of breath and no chest pain labs today were reviewed she had relatively normal renal profile and she had INR of 3.1, remains on Coumadin Patient today on 12/25/2023, patient is doing well, intermittently on BiPAP 16/6/40% alternating with nasal cannula. Patient is comfortable not in any distress, continues to have significant for left-sided hemiplegia. No cough no wheezing no shortness of breath, patient is presently an overflow supposed to go to 3 S., but no beds are available. Admitting physician is considering discharging the patient to rehab/ECF if cleared by other consultants.WBC count is 6.6 hemoglobin 9.4 basic metabolic profile is normal potassium is a bit low being corrected accordingly. Objective - Vital Signs Vital signs: Vital Signs Temp 98.5 F 12/25/23 04:00 Pulse 82 12/25/23 04:00 Resp 18 12/25/23 04:00 BP 96/61 12/25/23 04:00 Pulse Ox 98 12/25/23 04:00 FiO2 40 12/25/23 05:14 Intake & Output 12/24/23 12/25/23 12/25/23 18:59 06:59 18:59 Intake Total 150 237 Output Total 760 325 Balance -760 -175 237 Weight 143.1 kg 149.2 kg 142.8 kg Intake: Oral 150 237 Output: Urine 760 325 Uretheral (Rodríguez) 760 Other: Voiding Method Indwelling Catheter Indwelling Catheter # Bowel Movements 1 - Exam Revealed 73-year-old white female, obese, on 3 L nasal cannula, not in distress. HEENT examination is grossly unremarkable. Neck supple. No neck masses no JVD no stridor. Cardiovascular examination distant S1-S2, no S3 gallop, no murmur. Lungs diminished breath at the bases no crackles rhonchi or wheezes Abdomen obese, soft nontender no guarding no rebound no guarding Extremities no clubbing edema or cyanosis, there is evidence of wound on her right wrist, covered with sterile dressing Skin no rashes Neurologic examination: Alert oriented x 3 no gross focal deficit, however the patient has chronic left-sided hemiplegia related to previous CVA Psychiatric: Normal mood affect and no mental status examination - Labs CBC & Chem 7: 12/25/23 05:48 12/25/23 05:41 Labs: Abnormal Lab Results - Last 24 Hours (Table) 12/24/23 12/25/23 12/25/23 Range/Units 17:44 05:41 05:48 RBC (3.80-5.40) m/uL Hgb (11.4-16.0) gm/dL Hct (34.0-46.0) % MCHC (31.0-37.0) g/dL PT 33.1 H (10.0-12.5) sec INR 3.4 H (<1.2) Sodium 133 L (137-145) mmol/L Potassium 3.1 L (3.5-5.1) mmol/L Carbon Dioxide 31 H (22-30) mmol/L BUN 18 H (7-17) mg/dL Glucose 115 H (74-99) mg/dL POC Glucose (mg/dL) 123 H (70-110) mg/dL 12/25/23 Range/Units 05:48 RBC 3.06 L (3.80-5.40) m/uL Hgb 9.4 L (11.4-16.0) gm/dL Hct 30.4 L (34.0-46.0) % MCHC 30.8 L (31.0-37.0) g/dL PT (10.0-12.5) sec INR (<1.2) Sodium (137-145) mmol/L Potassium (3.5-5.1) mmol/L Carbon Dioxide (22-30) mmol/L BUN (7-17) mg/dL Glucose (74-99) mg/dL POC Glucose (mg/dL) (70-110) mg/dL Assessment and Plan Assessment: Impression : Acute on chronic hypoxic and hypercapnic respiratory failure secondary to acute systolic congestive heart failure with underlying obstructive sleep apnea syndrome/obesity hypoventilation syndrome Hypovolemic hypotension secondary to diuretics and aggressive diuresis as well as secondary to systolic dysfunction Systolic congestive heart failure, with an ejection fraction of 40 to 45%. Hypercarbic encephalopathy History of atrial fibrillation with a relatively controlled ventricular response rate, rate is under better control and the patient is on anticoagulation with warfarin History of mitral valve replacement. The patient has a mechanical valve and the patient has been maintained on long-term anticoagulation with warfarin and repeat INR is therapeutic History of hyperlipidemia. History of CVA. Repeat CAT scan of the brain on 12/16/2023 shows stable findings and the patient has chronic left sided hemiplegia History of tricuspid regurgitation. History of seizure disorder. Chronic lower extremity edema Right wrist, MRSA cellulitis Recommendation: Continue antibiotics, as per infectious disease on the case Continue diuretics Bumex and Aldactone Continue BiPAP and titrate oxygen accordingly Continue anticoagulation therapy Will clear for discharge or transfer out of ICU to regular medical floor Continue GI DVT prophylaxis Will continue to follow Time with Patient: Less than 30
[2023-12-25 12:24] VITALS: BP 93/62; PULSE 77; TEMP 98.6
--- NOTE | 2023-12-25 12:46 | P.PN ---
Subjective Progress Note Date: 12/25/23 Principal diagnosis: Reason for follow-up is right wrist IV site cellulitis/MRSA Patient is a 73-year-old female with a past medical history significant for atrial fibrillation coronary disease CVA TIA hyperlipidemia pneumonia seizure disorder patient initially presented to hospital for evaluation of increasing shortness of breath subsequently transferred to ICU because of hypotension also noted to have right wrist area wound with some purulent drainage concerning for previous IV site cellulitis and infection. On today's evaluation that is 12/25/2023,the patient remains to be afebrile, patient is on 2 L nasal cannula supplemental oxygen and denies any shortness of breath no chest pain or cough.Patient denies having any nausea or vomiting, no abdominal pain and no diarrhea has been reported. Patient white count 6.6, creatinine 0.80 Objective - Vital Signs Vital signs: Vital Signs Temp 98.6 F 12/25/23 12:00 Pulse 103 H 12/25/23 12:01 Resp 18 12/25/23 12:00 BP 93/62 12/25/23 12:00 Pulse Ox 98 12/25/23 04:00 FiO2 40 12/25/23 05:14 Intake & Output 12/24/23 12/25/23 12/25/23 18:59 06:59 18:59 Intake Total 150 474 Output Total 760 325 525 Balance -760 -175 -51 Weight 143.1 kg 149.2 kg 142.8 kg Intake: Oral 150 474 Output: Urine 760 325 525 Uretheral (Rodríguez) 760 Other: Voiding Method Indwelling Catheter Indwelling Catheter Indwelling Catheter # Bowel Movements 1 - Exam GENERAL DESCRIPTION: An elderly female lying in bed in no distress RESPIRATORY SYSTEM: Unlabored breathing , decreased breath sounds at bases HEART: S1 S2 regular rate and rhythm , ABDOMEN: Soft , no tenderness EXTREMITIES: Right wrist swelling redness has decreased no further purulent drainage - Labs CBC & Chem 7: 12/25/23 05:48 12/25/23 05:41 Labs: Abnormal Lab Results - Last 24 Hours (Table) 12/24/23 12/25/23 12/25/23 Range/Units 17:44 05:41 05:48 RBC (3.80-5.40) m/uL Hgb (11.4-16.0) gm/dL Hct (34.0-46.0) % MCHC (31.0-37.0) g/dL PT 33.1 H (10.0-12.5) sec INR 3.4 H (<1.2) Sodium 133 L (137-145) mmol/L Potassium 3.1 L (3.5-5.1) mmol/L Carbon Dioxide 31 H (22-30) mmol/L BUN 18 H (7-17) mg/dL Glucose 115 H (74-99) mg/dL POC Glucose (mg/dL) 123 H (70-110) mg/dL 12/25/23 Range/Units 05:48 RBC 3.06 L (3.80-5.40) m/uL Hgb 9.4 L (11.4-16.0) gm/dL Hct 30.4 L (34.0-46.0) % MCHC 30.8 L (31.0-37.0) g/dL PT (10.0-12.5) sec INR (<1.2) Sodium (137-145) mmol/L Potassium (3.5-5.1) mmol/L Carbon Dioxide (22-30) mmol/L BUN (7-17) mg/dL Glucose (74-99) mg/dL POC Glucose (mg/dL) (70-110) mg/dL Assessment and Plan (1) Cellulitis of right wrist Current Visit: Yes Status: Acute Code(s): L03.113 - CELLULITIS OF RIGHT UPPER LIMB SNOMED Code(s): 52301841469251202 (2) Phlebitis Current Visit: Yes Status: Acute Code(s): I80.9 - PHLEBITIS AND THROMBOPHLEBITIS OF UNSPECIFIED SITE SNOMED Code(s): 91992947 (3) MRSA (methicillin resistant Staphylococcus aureus) infection Current Visit: Yes Status: Acute Code(s): A49.02 - METHICILLIN RESIS STAPH INFECTION, UNSP SITE SNOMED Code(s): 131223535 Plan: 1patient with right wrist cellulitis at site of previous IV now with evidence of some purulent drainage and surrounding redness likely from gram-positive skin camille 2-blood and local culture has been requested, blood culture pending local culture with MRSA blood cultures so far negative 3-patient did have improvement of the right wrist swelling and redness we will continue with oral doxycycline for few days Dictation was produced using [employer] software. please excuse any grammatical, word or spelling errors. Time with Patient: Less than 30
[2023-12-25] MEDS: metroNIDAZOLE 500 MG TAB PO SCH (12:53)
[2023-12-25] MEDS: FLUCONAZOLE 150 MG TAB PO STA (12:53)
--- NOTE | 2023-12-25 13:10 | P.PN ---
Subjective Progress Note Date: 12/25/23 Interval History: 73-year-old female was sent in because of decreased level of consciousness with concerns of aspiration. Patient was also short of breath patient is found to be in hypercapnic respiratory failure with pH of 7.3 and pCO2 of 90 and pO2 of around 70. Patient does have history of obstructive sleep apnea morbidly obese female uses CPAP machine at nighttime. Patient does have multiple other medical problems including congestive heart failure with a EF of around 40 to 45% chest x-ray showing some pulmonary edema and BNP of 1700. Patient does not have any fever chills presently on BiPAP at this time. Patient is on Bumex 2 mg twice a day as an outpatient. Patient does have mild pedal edema on exam. Patient does use oxygen at baseline. Patient is mostly bedbound bilateral does have bilateral foot drop has history of cerebrovascular accident as well in the past 12/21/2023 --the patient is seen and evaluated with nursing staff at bedside; patient taken off the BiPAP and she is currently on 3 L of oxygen by nasal cannula. -- blood gas showed a pH of 7.42 with a pCO2 of 58 and pO2 of 102. As such, there is improvement in acid-base status. - Lasix was restarted by cardiology and the patient has been receiving Lasix 40 mg IV every 12 hours with excellent urine output. Continues to be on low-dose pressors and the patient is currently on norepinephrine at 0.02 mcg/kg/min. -- Serum bicarb is down to 37 with a chloride of 92 and a sodium is at 136. The white cell count is at 7.5 with hemoglobin 10.8 and a platelet count of 212. Remains on vancomycin. Remains on anticoagulation with warfarin. INR is therapeutic at 2.8. 12/22/2023 --the patient is seen for a follow-up. The patient is still producing excellent urine output. Fluid balance over the past 24 hours has been -2.4 L. The patient remains on low-dose norepinephrine at 0.05 mcg/kg/min. Overnight, she was on a BiPAP pressure of 16/6 and currently she is on 2 L of oxygen by nasal cannula. Doing well. Serum bicarb is currently at 38. Potassium is at 3.5 post replacement. INR is at 2.9. White cell count is 7.9 with a hemoglobin 10.5. No signs of any CO2 narcosis. Continue anticoagulation with warfarin. Continue vancomycin. Patient was switched to oral Bumex and IV Lasix has been discontinued. Lower extremity edema is also improving. patient with right wrist cellulitis at site of previous IV now with evidence of some purulent drainage and surrounding redness likely from gram-positive skin camille -blood and local culture has been requested, blood culture pending local culture with MRSA blood cultures so far negative -patient did have improvement of the right wrist, to continue with vancomycin pharmacy to dose and will transition to oral antibiotics on discharge 12/23/2023 the patient is seen and evaluated in room bedside, remains in ICU. Norepinephrine was discontinued this morning. Awake and alert and communicating. She is on oxygen and she is on 3 L/min nasal cannula. Patient remains on IV antibiotics for wound and cellulitis of the right upper extremity improving as the patient was cultured to have MRSA and the patient remains on vancomycin. No other significant events overnight. She does have some residual edema lower extremities bilaterally. Labs from today show a white cell count of 6.9, hemoglobin 10.4 and a platelet count of 222. Serum bicarb is at 33 and a BUN 16 with a creatinine of 0.74 and sodium levels at 03/13/2019 potassium level needs to be replaced. 12/24/2023 Patient was seen and examined today. Currently in ICU, on 2 L of oxygen, no. Distress, responding well to oral diuretics, requiring nightly BiPAP. Currently on vancomycin for right wrist MRSA infection per infectious disease. Pulmonary following. On Coumadin, INR therapeutic, pharmacy dosing. 12/25/2023 Patient was seen and examined today, remained afebrile, heart rate elevated 105, respiratory rate 16, blood pressure 109/54 saturating more than 90% on 2 L. WBC 6.6, hemoglobin 9.4, platelets 199. INR supratherapeutic 3.4. BMP was unremarkable, low potassium 3.1, replace per protocol. Anticipate discharge to subacute rehab. Assessment and plan: Acute on chronic hypoxic hyperlipoidemia respiratory failure--resolved JOSE MANUEL is/[facility] - Acute on chronic systolic CHF with EF 40 to 45%: -Pulmonary hypertension -Hypovolemic shock currently on levophed and in the ICU. 2L fluid bolus given. BPs better today. -Hypokalemia from diuresis improved. -Acute metabolic encephalopathyaltered mental status secondary to acute metabolic encephalopathy and elevated CO2 levels. Resolved -Respiratory acidosis secondary to CO2 retention -Right wrist cellulitis and purulent wound from IV site with cultures showing presumptive MRSA. Now on IV vancomycin and ID consultation. 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 doxycycline. Will continue diuresis with Bumex and Aldactone Wean off oxygen as tolerated, BiPAP Anticoagulated with warfarin ICU following Cardiology following Infectious disease following PT/OT evaluation DVT prophylaxis: Anticoagulated with warfarin. Monitor vital signs and labs Labs and medication were reviewed. Continue same treatment. Further recommendations as per clinical course of the patient PHYSICAL EXAMINATION: GENERAL: The patient is A&O x3, NAD HEENT: EOMI, Sclerae anicteric, Moist Mucous membranes Neck: Supple, Non tender, No JVD PULMONARY: Equal breath souds B/L, No wheezing, No crackles. CARDIOVASCULAR: S1, S2 present. No murmurs, rubs, or gallops. ABDOMEN: Soft, nontender, nondistended, normoactive bowel sounds. No guarding or rebound tenderness. MUSCULOSKELETAL: + edema, No cyanosis. No clubbing. Normal ROM. Intact peripheral pulses. NEUROLOGICAL: CN 2-12 grossly intact. No FND Skin: No Rash REVIEW OF SYSTEMS: CONSTITUTIONAL: No fever or chills. CARDIOVASCULAR: No chest pain, palpitations or syncope. PULMONARY: No shortness of breath, no cough, sore throat. GASTROINTESTINAL: No nausea, vomiting, diarrhea, abdominal pain. : No Dysuria, urgency, frequency. Extremities: No edema. NEUROLOGICAL: No headaches, no weakness, or numbness Dictation was produced using [employer] dictation software. please excuse any grammatical, word or spelling errors. Objective - Vital Signs Vital signs: Vital Signs Temp 98.6 F 12/25/23 12:00 Pulse 103 H 12/25/23 12:01 Resp 18 12/25/23 12:00 BP 93/62 12/25/23 12:00 Pulse Ox 98 12/25/23 04:00 FiO2 40 12/25/23 05:14 Intake & Output 12/24/23 12/25/23 12/25/23 18:59 06:59 18:59 Intake Total 150 474 Output Total 760 325 525 Balance -760 -175 -51 Weight 143.1 kg 149.2 kg 142.8 kg Intake: Oral 150 474 Output: Urine 760 325 525 Uretheral (Rodríguez) 760 Other: Voiding Method Indwelling Catheter Indwelling Catheter Indwelling Catheter # Bowel Movements 1 - Labs CBC & Chem 7: 12/25/23 05:48 12/25/23 05:41 Labs: Abnormal Lab Results - Last 24 Hours (Table) 12/24/23 12/25/23 12/25/23 Range/Units 17:44 05:41 05:48 RBC (3.80-5.40) m/uL Hgb (11.4-16.0) gm/dL Hct (34.0-46.0) % MCHC (31.0-37.0) g/dL PT 33.1 H (10.0-12.5) sec INR 3.4 H (<1.2) Sodium 133 L (137-145) mmol/L Potassium 3.1 L (3.5-5.1) mmol/L Carbon Dioxide 31 H (22-30) mmol/L BUN 18 H (7-17) mg/dL Glucose 115 H (74-99) mg/dL POC Glucose (mg/dL) 123 H (70-110) mg/dL 12/25/23 Range/Units 05:48 RBC 3.06 L (3.80-5.40) m/uL Hgb 9.4 L (11.4-16.0) gm/dL Hct 30.4 L (34.0-46.0) % MCHC 30.8 L (31.0-37.0) g/dL PT (10.0-12.5) sec INR (<1.2) Sodium (137-145) mmol/L Potassium (3.5-5.1) mmol/L Carbon Dioxide (22-30) mmol/L BUN (7-17) mg/dL Glucose (74-99) mg/dL POC Glucose (mg/dL) (70-110) mg/dL
--- NOTE | 2023-12-25 14:23 | P.DS ---
Providers Date of admission: 12/13/23 10:43 Expected date of discharge: 12/25/23 Attending physician: Vin Ojeda Consults: 12/13/23 10:39 Consult Physician Routine Consulting Provider: Baudilio Thompson Consult Reason/Comments: bipap, hypercarbia Do you want consulting provider notified?: Yes Consult Physician Routine Consulting Provider: Miguel Solano Consult Reason/Comments: chf Do you want consulting provider notified?: Yes 12/16/23 07:37 Consult Physician Routine Consulting Provider: Susana Grider Consult Reason/Comments: increased confusion, questionable seizure Do you want consulting provider notified?: Yes 12/19/23 11:33 Consult Physician Routine Consulting Provider: Bobo Horner Consult Reason/Comments: right wrist cellulitis Do you want consulting provider notified?: Yes Primary care physician: Jerri Hodgson, Hospital Course: Discharge diagnoses: Acute on chronic hypoxic hyperlipoidemia respiratory failure--resolved JOSE MANUEL is/[facility] - Acute on chronic systolic CHF with EF 40 to 45%: -Pulmonary hypertension -Hypovolemic shock currently on levophed and in the ICU. 2L fluid bolus given. BPs better today. -Hypokalemia from diuresis improved. -Acute metabolic encephalopathyaltered mental status secondary to acute metabolic encephalopathy and elevated CO2 levels. Resolved -Respiratory acidosis secondary to CO2 retention -Right wrist cellulitis and purulent wound from IV site with cultures showing presumptive MRSA. Now on IV vancomycin and ID consultation. 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 doxycycline. Will continue diuresis with Bumex and Aldactone Anticoagulated with warfarin ICU cardiology and infectious disease was consulted. Continue doxycycline for 5 more days. Continue Keppra 1500 mg twice daily, started Vimpat 50 mg twice daily during hospitalization and continued discharge. Hospital course: 73-year-old female was sent in because of decreased level of consciousness with concerns of aspiration. Patient was also short of breath patient is found to be in hypercapnic respiratory failure with pH of 7.3 and pCO2 of 90 and pO2 of around 70. Patient does have history of obstructive sleep apnea morbidly obese female uses CPAP machine at nighttime. Patient does have multiple other medical problems including congestive heart failure with a EF of around 40 to 45% chest x-ray showing some pulmonary edema and BNP of 1700. Patient does not have any fever chills presently on BiPAP at this time. Patient is on Bumex 2 mg twice a day as an outpatient. Patient does have mild pedal edema on exam. Patient does use oxygen at baseline. Patient is mostly bedbound bilateral does have bilateral foot drop has history of cerebrovascular accident as well in the past 12/21/2023 --the patient is seen and evaluated with nursing staff at bedside; patient taken off the BiPAP and she is currently on 3 L of oxygen by nasal cannula. -- blood gas showed a pH of 7.42 with a pCO2 of 58 and pO2 of 102. As such, there is improvement in acid-base status. - Lasix was restarted by cardiology and the patient has been receiving Lasix 40 mg IV every 12 hours with excellent urine output. Continues to be on low-dose pressors and the patient is currently on norepinephrine at 0.02 mcg/kg/min. -- Serum bicarb is down to 37 with a chloride of 92 and a sodium is at 136. The white cell count is at 7.5 with hemoglobin 10.8 and a platelet count of 212. Remains on vancomycin. Remains on anticoagulation with warfarin. INR is therapeutic at 2.8. 12/22/2023 --the patient is seen for a follow-up. The patient is still producing excellent urine output. Fluid balance over the past 24 hours has been -2.4 L. The patient remains on low-dose norepinephrine at 0.05 mcg/kg/min. Overnight, she was on a BiPAP pressure of 16/6 and currently she is on 2 L of oxygen by nasal cannula. Doing well. Serum bicarb is currently at 38. Potassium is at 3.5 post replacement. INR is at 2.9. White cell count is 7.9 with a hemoglobin 10.5. No signs of any CO2 narcosis. Continue anticoagulation with warfarin. Continue vancomycin. Patient was switched to oral Bumex and IV Lasix has been discontinued. Lower extremity edema is also improving. patient with right wrist cellulitis at site of previous IV now with evidence of some purulent drainage and surrounding redness likely from gram-positive skin camille -blood and local culture has been requested, blood culture pending local culture with MRSA blood cultures so far negative -patient did have improvement of the right wrist, to continue with vancomycin ph armacy to dose and will transition to oral antibiotics on discharge 12/23/2023 the patient is seen and evaluated in room bedside, remains in ICU. Norepinephrine was discontinued this morning. Awake and alert and communicating. She is on oxygen and she is on 3 L/min nasal cannula. Patient remains on IV antibiotics for wound and cellulitis of the right upper extremity improving as the patient was cultured to have MRSA and the patient remains on vancomycin. No other significant events overnight. She does have some residual edema lower extremities bilaterally. Labs from today show a white cell count of 6.9, hemoglobin 10.4 and a platelet count of 222. Serum bicarb is at 33 and a BUN 16 with a creatinine of 0.74 and sodium levels at 03/13/2019 potassium level needs to be replaced. 12/24/2023 Patient was seen and examined today. Currently in ICU, on 2 L of oxygen, no. Distress, responding well to oral diuretics, requiring nightly BiPAP. Currently on vancomycin for right wrist MRSA infection per infectious disease. Pulmonary following. On Coumadin, INR therapeutic, pharmacy dosing. 12/25/2023 Patient was seen and examined today, remained afebrile, heart [id number], respiratory rate 16, blood pressure 109/54 saturating more than 90% on 2 L. WBC 6.6, hemoglobin 9.4, platelets 199. INR supratherapeutic 3.4. BMP was unremarkable, low potassium 3.1, replace per protocol. Discussed with infectious disease, recommended to continue doxycycline for 5 days at discharge. Patient continued on Flagyl for suspicion of bacterial vaginosis for 7 days. Patient continued on Bumex and Aldactone at discharge. Advised to hold Coumadin today and get INR checked in 1 to 2 days and adjust Coumadin dose based on INR. Outpatient follow-up with cardiology, pulmonary and PCP. PHYSICAL EXAMINATION: GENERAL: The patient is A&O x3, NAD HEENT: EOMI, Sclerae anicteric, Moist Mucous membranes Neck: Supple, Non tender, No JVD PULMONARY: Equal breath souds B/L, No wheezing, No crackles. CARDIOVASCULAR: S1, S2 present. No murmurs, rubs, or gallops. ABDOMEN: Soft, nontender, nondistended, normoactive bowel sounds. No guarding or rebound tenderness. MUSCULOSKELETAL: + edema, No cyanosis. No clubbing. Normal ROM. Intact peripheral pulses. NEUROLOGICAL: CN 2-12 grossly intact. No FND Skin: No Rash Dictation was produced using [employer] dictation software. please excuse any grammatical, word or spelling errors. Patient Condition at Discharge: Fair Plan - Discharge Summary Discharge Rx Participant: No New Discharge Prescriptions: New Aspirin 81 mg PO DAILY tab Folic Acid 1 mg PO DAILY tab Gabapentin [Neurontin] 600 mg PO BID #20 cap Lacosamide [Vimpat] 50 mg PO BID #60 tab levETIRAcetam [Keppra] 1,500 mg PO BID tab lisinopriL [Zestril] 2.5 mg PO DAILY tab Bumetanide [BUMEX] 1 mg PO DAILY #30 tab metroNIDAZOLE [Flagyl] 500 mg PO BID #14 tab Doxycycline [Vibramycin] 100 mg PO BID #10 cap Continue Atorvastatin Calcium [Lipitor] 40 mg PO HS Sennosides [Senna] 8.6 mg PO BID Cetirizine HCl [Zyrtec] 10 mg PO DAILY Miconazole Nitrate [Lotrimin AF Powder] 1 applic TOPICAL BID Naloxone HCl [Narcan] 4 mg NASAL DIRECTED PRN PRN Reason: Opioid Overdose Warfarin Sodium 2 mg PO HS Docusate Sodium [Dok] 100 mg PO DAILY Morphine Sulfate ER [Ms Contin] 30 mg PO HS #3 tab Midodrine [ProAmatine] 5 mg PO TID #0 Metoprolol Tartrate [Lopressor] 12.5 mg PO BID Sertraline [Zoloft] 50 mg PO DAILY Potassium Chloride ER [K-Dur 20] 20 meq PO BID #0 Betamethasone Dipropionate [Betamethasone Dipropionate 0.05% Cream] 1 applic TOPICAL Q24H PRN PRN Reason: plaque psoriasis Docusate [Colace] 100 mg PO BID PRN PRN Reason: Constipation polyethylene glycoL 3350 [Miralax] 17 gm PO DAILY Pramipexole [Mirapex] 0.5 mg PO HS Spironolactone [Aldactone] 50 mg PO DAILY Naloxone HCl 0.4 mg IM DIRECTED PRN PRN Reason: Opioid Overdose Discontinued levETIRAcetam 1,000 mg PO BID traMADol HCl [Ultram] 50 mg PO BID PRN PRN Reason: Moderate To Severe Pain (4-10) Baclofen 5 mg PO BID Bumetanide [BUMEX] 2 mg PO BID Gabapentin 600 mg PO BID Discharge Medication List Atorvastatin Calcium [Lipitor] 40 mg PO HS 09/06/15 [History] Sennosides [Senna] 8.6 mg PO BID 10/01/17 [History] Metoprolol Tartrate [Lopressor] 12.5 mg PO BID 03/03/21 [History] Sertraline [Zoloft] 50 mg PO DAILY 03/03/21 [History] Potassium Chloride ER [K-Dur 20] 20 meq PO BID #0 03/05/21 [Rx] Betamethasone Dipropionate [Betamethasone Dipropionate 0.05% Cream] 1 applic TOPICAL Q24H PRN 12/13/23 [History] Cetirizine HCl [Zyrtec] 10 mg PO DAILY 12/13/23 [History] Docusate Sodium [Dok] 100 mg PO DAILY 12/13/23 [History] Docusate [Colace] 100 mg PO BID PRN 12/13/23 [History] Miconazole Nitrate [Lotrimin AF Powder] 1 applic TOPICAL BID 12/13/23 [History] Naloxone HCl 0.4 mg IM DIRECTED PRN 12/13/23 [History] Naloxone HCl [Narcan] 4 mg NASAL DIRECTED PRN 12/13/23 [History] Pramipexole [Mirapex] 0.5 mg PO HS 12/13/23 [History] Spironolactone [Aldactone] 50 mg PO DAILY 12/13/23 [History] Warfarin Sodium 2 mg PO HS 12/13/23 [History] polyethylene glycoL 3350 [Miralax] 17 gm PO DAILY 12/13/23 [History] Aspirin 81 mg PO DAILY tab 12/18/23 [Rx] Folic Acid 1 mg PO DAILY tab 12/18/23 [Rx] Midodrine [ProAmatine] 5 mg PO TID #0 12/18/23 [Rx] Morphine Sulfate ER [Ms Contin] 30 mg PO HS #3 tab 12/18/23 [Rx] levETIRAcetam [Keppra] 1,500 mg PO BID tab 12/18/23 [Rx] lisinopriL [Zestril] 2.5 mg PO DAILY tab 12/18/23 [Rx] Bumetanide [BUMEX] 1 mg PO DAILY #30 tab 12/25/23 [Rx] Doxycycline [Vibramycin] 100 mg PO BID #10 cap 12/25/23 [Rx] Gabapentin [Neurontin] 600 mg PO BID #20 cap 12/25/23 [Rx] Lacosamide [Vimpat] 50 mg PO BID #60 tab 12/25/23 [Rx] metroNIDAZOLE [Flagyl] 500 mg PO BID #14 tab 12/25/23 [Rx] Follow up Appointment(s)/Referral(s): Jerri Hodgson DO [Primary Care Provider] - 1-2 days Cesar Escamilla DO [STAFF PHYSICIAN] - 1 Week Zuleyka Cox MD [Medical Doctor] - 1 Week Pranav Thompson MD [STAFF PHYSICIAN] - 1 Week Ambulatory/Diagnostic Orders: Basic Metabolic Panel [LAB.AMB] Time Frame: 3 Days, Location: None Selected Complete Blood Count w/diff [LAB.AMB] Location: None Selected Patient Instructions/Handouts: Non-tunneled Central Lines (GEN) Activity/Diet/Wound Care/Special Instructions: Hold Coumadin until 12/26/2023, INR to be checked in 1 to 2 days and Coumadin dose adjusted for goal INR 2-3. Bipap 16/6 @40% FI02
[2023-12-25] MEDS ORDERED: WARFARIN 1.5 MG TAB PO ONE (18:00)
== END 2023-12-25 16:09 | DRG 291 ==
LOC: EC 03:08 → 3SCARD 10:43 → UNDODISIN 16:45 → 4SSUR 12-18 21:55 → 2SICU 12-19 08:03
PROVIDERS: ADMIT Hospitalist; ATTEND Hospitalist
PROC: 3E033XZ Introduction of Vasopressor into Peripheral Vein, Percutaneous Approach (ICD-10-PCS; principal; 2023-12-19)
DX: I11.0 Hypertensive heart disease with heart failure (principal); G93.41 Metabolic encephalopathy; I50.23 Acute on chronic systolic (congestive) heart failure; J96.22 Acute and chronic respiratory failure with hypercapnia; R57.1 Hypovolemic shock; J96.21 Acute and chronic respiratory failure with hypoxia; E66.2 Morbid (severe) obesity with alveolar hypoventilation; L03.113 Cellulitis of right upper limb; I48.21 Permanent atrial fibrillation; T80.29XA Infection following other infusion, transfusion and therapeutic injection, initial encounter; E87.4 Mixed disorder of acid-base balance; I69.354 Hemiplegia and hemiparesis following cerebral infarction affecting left non-dominant side; J40 Bronchitis, not specified as acute or chronic; B95.62 Methicillin resistant Staphylococcus aureus infection as the cause of diseases classified elsewhere; Y84.8 Other medical procedures as the cause of abnormal reaction of the patient, or of later complication, without mention of misadventure at the time of the procedure; E78.5 Hyperlipidemia, unspecified; F32.A Depression, unspecified; E86.1 Hypovolemia; E87.6 Hypokalemia; E53.8 Deficiency of other specified B group vitamins; D53.9 Nutritional anemia, unspecified; G40.909 Epilepsy, unspecified, not intractable, without status epilepticus; T50.2X5A Adverse effect of carbonic-anhydrase inhibitors, benzothiadiazides and other diuretics, initial encounter; G62.9 Polyneuropathy, unspecified; I80.8 Phlebitis and thrombophlebitis of other sites; I25.10 Atherosclerotic heart disease of native coronary artery without angina pectoris; J44.89 Other specified chronic obstructive pulmonary disease; I42.9 Cardiomyopathy, unspecified; I07.1 Rheumatic tricuspid insufficiency; I27.20 Pulmonary hypertension, unspecified; M21.372 Foot drop, left foot; M21.371 Foot drop, right foot; Z79.82 Long term (current) use of aspirin; Z79.01 Long term (current) use of anticoagulants; Z74.01 Bed confinement status; Z79.899 Other long term (current) drug therapy; Z95.1 Presence of aortocoronary bypass graft; Z95.2 Presence of prosthetic heart valve
CPT/HCPCS: 36410; 36415; 36600; 70450; 71045; 76937; 80048; 80051; 80053; 80177; 80202; 81003; 82140; 82272; 82565; 82607; 82746; 82803; 82805; 83605; 83735; 83880; 83921; 84132; 84484; 85025; 85027; 85610; 85730; 87040; 87070; 87075; 87077; 87186; 87205; 93005; 93306; 94640; 94660; 94760; 95816; 96365; 96366; 96375; 99291

== ENCOUNTER 2024-01-13 12:24 | Emergency (ER) | payer MEDICARE, OTHER ==
[2024-01-13 12:36] VITALS: RESP 20
--- NOTE | 2024-01-13 13:06 | ED ---
General Adult HPI - General Chief complaint: Altered Mental Status Stated complaint: AMS/hypotension/weakness Time Seen by Provider: 01/13/24 12:37 Source: patient, EMS Mode of arrival: EMS Limitations: altered mental status - History of Present Illness Initial comments: Asha is a 73-year-old female sent to the emergency department today from jail for evaluation of altered mental status. Nurses report the patient's not been eating or drinking well they attempted to place an IV early this morning but minimal fluids and infused over the course of 12 hours they are concerned about her worsening mental status and some hypotension so they sent her to the ER for evaluation. Daughter reports that the patient's had waxing and waning mental status for about a month she is not eating or drinking well she occasionally is lucid but then will have episodes of being completely out of it. Not had any vomiting but is not eating much. No fevers no cough she does not express any complaints of pain. 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 - Related Data Home Medications Medication Instructions Recorded Confirmed Atorvastatin Calcium [Lipitor] 40 mg PO HS 09/06/15 12/13/23 Sennosides [Senna] 8.6 mg PO BID 10/01/17 12/13/23 Metoprolol Tartrate [Lopressor] 12.5 mg PO BID 03/03/21 12/13/23 Sertraline [Zoloft] 50 mg PO DAILY 03/03/21 12/13/23 Betamethasone Dipropionate 1 applic TOPICAL Q24H PRN 12/13/23 12/13/23 [Betamethasone Dipropionate 0.05% Cream] Cetirizine HCl [Zyrtec] 10 mg PO DAILY 12/13/23 12/13/23 Docusate Sodium [Dok] 100 mg PO DAILY 12/13/23 12/13/23 Docusate [Colace] 100 mg PO BID PRN 12/13/23 12/13/23 Miconazole Nitrate [Lotrimin AF 1 applic TOPICAL BID 12/13/23 12/13/23 Powder] Naloxone HCl 0.4 mg IM DIRECTED PRN 12/13/23 12/13/23 Naloxone HCl [Narcan] 4 mg NASAL DIRECTED PRN 12/13/23 12/13/23 Pramipexole [Mirapex] 0.5 mg PO HS 12/13/23 12/13/23 Spironolactone [Aldactone] 50 mg PO DAILY 12/13/23 12/13/23 Warfarin Sodium 2 mg PO HS 12/13/23 12/13/23 polyethylene glycoL 3350 [Miralax] 17 gm PO DAILY 12/13/23 12/13/23 Previous Rx's Medication Instructions Recorded Potassium Chloride ER [K-Dur 20] 20 meq PO BID #0 03/05/21 Aspirin 81 mg PO DAILY tab 12/18/23 Folic Acid 1 mg PO DAILY tab 12/18/23 Midodrine [ProAmatine] 5 mg PO TID #0 12/18/23 Morphine Sulfate ER [Ms Contin] 30 mg PO HS #3 tab 12/18/23 levETIRAcetam [Keppra] 1,500 mg PO BID tab 12/18/23 lisinopriL [Zestril] 2.5 mg PO DAILY tab 12/18/23 Bumetanide [BUMEX] 1 mg PO DAILY #30 tab 12/25/23 Doxycycline [Vibramycin] 100 mg PO BID #10 cap 12/25/23 Gabapentin [Neurontin] 600 mg PO BID #20 cap 12/25/23 Lacosamide [Vimpat] 50 mg PO BID #60 tab 12/25/23 metroNIDAZOLE [Flagyl] 500 mg PO BID #14 tab 12/25/23 Allergies Allergy/AdvReac Type Severity Reaction Status Date / Time codeine Allergy Chest Pain Verified 01/13/24 12:36 lorazepam [From Ativan] AdvReac GIVES THE Verified 01/13/24 12:36 OPPOSITE EFFECT Review of Systems ROS Statement: Those systems with pertinent positive or pertinent negative responses have been documented in the HPI. ROS Other: All systems not noted in ROS Statement are negative. Past Medical History Past Medical History: Atrial Fibrillation, Coronary Artery Disease (CAD), CVA/TIA, Hyperlipidemia, Pneumonia, Seizure Disorder Additional Past Medical History / Comment(s): FALLS, CONCUSSION, STROKE AFFECTED LT SIDE UNABLE TO USE LT ARM AND LT LE FLACCID. LT SHOULDER FRACTURE 2015, 2018, BAKERS BEHIND RT KNEE History of Any Multi-Drug Resistant Organisms: None Reported Date of last positivie culture/infection: 12/19/23 MDRO Source:: rt wrist Past Surgical History: Appendectomy, Cardiac Valve Replacement, Cholecystectomy, Heart Catheterization, Tubal Ligation Additional Past Surgical History / Comment(s): COLONOSCOPY, STATED HAD A "MITRAL VALVE REPLACEMENT" Past Anesthesia/Blood Transfusion Reactions: No Reported Reaction Past Psychological History: Depression Smoking Status: Never smoker Past Alcohol Use History: None Reported Past Drug Use History: None Reported - Past Family History Father Family Medical History: Cancer Additional Family Medical History / Comment(s): BRAIN AND LUNG CANCER Mother Family Medical History: Coronary Artery Disease (CAD), Dementia Additional Family Medical History / Comment(s): PT COULDN'T REMEMBER WHAT MOM FROM General Exam - General Exam Comments Initial Comments: Physical Exam GENERAL: Chronically ill-appearing morbidly obese elderly female HENT: Normocephalic, Atraumatic. EYES: GI appears deviated to the left PULMONARY: Unlabored respirations. CARDIOVASCULAR: RRR Lower extremity edema bilaterally ABDOMEN: Non-distended tender to deep palpation SKIN: No rashes or bruising : Deferred NEUROLOGIC: Alert and oriented to self only, Chronic left-sided deficits MUSCULOSKELETAL: Left-sided weakness PSYCHIATRIC: Unable to assess due to altered mental status Limitations: altered mental status Course Vital Signs 01/13/24 01/13/24 01/13/24 12:33 14:23 15:50 Temperature 98.6 F Pulse Rate 89 89 75 Respiratory 20 20 20 Rate Blood Pressure 86/45 71/48 92/71 O2 Sat by Pulse 97 100 97 Oximetry 01/13/24 01/13/24 17:00 18:43 Temperature 98.0 F Pulse Rate 82 86 Respiratory 20 20 Rate Blood Pressure 99/61 90/48 O2 Sat by Pulse 97 97 Oximetry EKG Findings - EKG Comments: EKG Findings:: Interpreted by me obtained due to altered mental status EKG ob tained at 1279 rate is 87 rhythm is narrow complex irregularly irregular rhythm consistent with patient's history of atrial fibrillation. QTc [address] elevations or depressions no evidence of ischemia or infarction. Medical Decision Making - Medical Decision Making Was pt. sent in by a medical professional or institution (, PA, [facility], urgent care, hospital, or jail...) When possible be specific @ -No Did you speak to anyone other than the patient for history (EMS, parent, family, police, friend...)? What history was obtained from this source @ -No Did you review nursing and triage notes (agree or disagree)? Why? @ -I reviewed and agree with nursing and triage notes Were old charts reviewed (outside hosp., previous admission, EMS record, old EKG, old radiological studies, urgent care reports/EKG's, jail records)? Report findings @ -No old charts were reviewed Differential Diagnosis (chest pain, altered mental status, abdominal pain women, abdominal pain men, vaginal bleeding, weakness, fever, dyspnea, syncope, headache, dizziness, GI bleed, back pain, seizure, CVA, palpatations, mental health)? @ -Not applicable EKG interpreted by me (3pts min.). @ -As above X-rays interpreted by me (1pt min.). @ -None done CT interpreted by me (1pt min.). @ -None done U/S interpreted by me (1pt. min.). @ -None done What testing was considered but not performed or refused? (CT, X-rays, U/S, labs)? Why? @ -None What meds were considered but not given or refused? Why? @ -None Did you discuss the management of the patient with other professionals (professionals i.e. , PA, [employer], lab, RT, psych nurse, transition social worker, lawyer real estate, teacher, transit authority police officer, rn case manager hospice)? Give summary @ -No Was smoking cessation discussed for >3mins.? @ -No Was critical care preformed (if so, how long)? @ -No Were there social determinants of health that impacted care today? How? (Homelessness, low income, unemployed, alcoholism, drug addiction, transportation, low edu. Level, literacy, decrease access to med. care, intermediate, rehab)? @ -No Was there de-escalation of care discussed even if they declined (Discuss DNR or withdrawal of care, Hospice)? DNR status @ -No What co-morbidities impacted this encounter? (DM, HTN, Smoking, COPD, CAD, Cancer, CVA, ARF, Chemo, Hep., AIDS, mental health diagnosis, sleep apnea, m orbid obesity)? @ -None Was patient admitted / discharged? Hospital course, mention meds given and route, prescriptions, significant lab abnormalities, going to OR and other pertinent info. @ -Disharged back to jail Patient was seen and evaluated history is obtained from EMS and daughter at bedside. Upon arrival patient was confused, labs were obtained. IV fluids were given. Labs with no critical abnormalities. Upon reevaluation after IV fluids patient's much more awake and alert. Daughter states that this is the most interactive her mother has been in the past month and she appears quite well. Patient had arrived with an IV in place but it was not infusing, at this time nereyda crespo is comfortable with plan for discharge home we are willing to leave the IV in place so she can receive additional fluids while at her jail. This time daughter is comfortable plan for discharge back to care facility. Undiagnosed new problem with uncertain prognosis? @ -No Drug Therapy requiring intensive monitoring for toxicity (Heparin, Nitro, Insulin, Cardizem)? @ -No Were any procedures done? @ -No Diagnosis/symptom? @ -Patient, altered mental status Acute, or Chronic, or Acute on Chronic? @ -Default Uncomplicated (without systemic symptoms) or Complicated (systemic symptoms)? @ -Default Side effects of treatment? @ -No Exacerbation, Progression, or Severe Exacerbation? @ -No Poses a threat to life or bodily function? How? (Chest pain, [place], [place], pneumonia, PE, COPD, DKA, ARF, appy, cholecystitis, CVA, Diverticulitis, Homicidal, Suicidal, threat to staff... and all critical care pts) @ -No - Lab Data Result diagrams: 01/13/24 13:09 01/13/24 13:09 Lab Results 01/13/24 01/13/24 01/13/24 Range/Units 13:09 13:09 13:09 WBC 7.8 (3.8-10.6) k/uL RBC 3.11 L (3.80-5.40) m/uL Hgb 9.8 L (11.4-16.0) gm/dL Hct 31.1 L (34.0-46.0) % MCV 100.0 (80.0-100.0) fL MCH 31.7 (25.0-35.0) pg MCHC 31.7 (31.0-37.0) g/dL RDW 14.7 (11.5-15.5) % Plt Count 184 (150-450) k/uL MPV 8.8 Neutrophils % 76 % Lymphocytes % 12 % Monocytes % 7 % Eosinophils % 4 % Basophils % 0 % Neutrophils # 5.9 (1.3-7.7) k/uL Lymphocytes # 0.9 L (1.0-4.8) k/uL Monocytes # 0.5 (0-1.0) k/uL Eosinophils # 0.3 (0-0.7) k/uL Basophils # 0.0 (0-0.2) k/uL Hypochromasia Slight Macrocytosis Slight PT 13.1 H (10.0-12.5) sec INR 1.2 H (<1.2) APTT 18.9 L (22.0-30.0) sec Sodium (137-145) mmol/L Potassium (3.5-5.1) mmol/L Chloride (98-107) mmol/L Carbon Dioxide (22-30) mmol/L Anion Gap mmol/L BUN (7-17) mg/dL Creatinine (0.52-1.04) mg/dL Est GFR (CKD-EPI)AfAm (>60 ml/min/1.73 sqM) Est GFR (CKD-EPI)NonAf (>60 ml/min/1.73 sqM) Glucose (74-99) mg/dL Calcium (8.4-10.2) mg/dL Total Bilirubin (0.2-1.3) mg/dL AST (14-36) U/L ALT (4-34) U/L Alkaline Phosphatase (38-126) U/L Total Protein (6.3-8.2) g/dL Albumin (3.5-5.0) g/dL Urine Color Light Yellow Urine Appearance Clear (Clear) Urine pH 5.0 (5.0-8.0) Ur Specific [place] 1.008 (1.001-1.035) Urine Protein Negative (Negative) Urine Glucose (UA) Negative (Negative) Urine Ketones Negative (Negative) Urine Blood Trace H (Negative) Urine Nitrite Negative (Negative) Urine Bilirubin Negative (Negative) Urine Urobilinogen <2.0 (<2.0) mg/dL Ur Leukocyte Esterase Negative (Negative) Urine RBC 1 (0-5) /hpf Urine WBC 1 (0-5) /hpf Ur Squamous Epith Cells 1 (0-4) /hpf Urine Bacteria Rare H (None) /hpf Hyaline Casts 3 H (0-2) /lpf Urine Mucus Rare H (None) /hpf Urine Opiates Screen Detected H (NotDetected) Ur Oxycodone Screen Not Detected (NotDetected) Urine Methadone Screen Not Detected (NotDetected) Ur Barbiturates Screen Not Detected (NotDetected) U Tricyclic Antidepress Not Detected (NotDetected) Ur Phencyclidine Scrn Not Detected (NotDetected) Ur Amphetamines Screen Not Detected (NotDetected) U Methamphetamines Scrn Not Detected (NotDetected) U Benzodiazepines Scrn Not Detected (NotDetected) Urine Cocaine Screen Not Detected (NotDetected) U Marijuana (THC) Screen Not Detected (NotDetected) 01/13/24 Range/Units 13:09 WBC (3.8-10.6) k/uL RBC (3.80-5.40) m/uL Hgb (11.4-16.0) gm/dL Hct (34.0-46.0) % MCV (80.0-100.0) fL MCH (25.0-35.0) pg MCHC (31.0-37.0) g/dL RDW (11.5-15.5) % Plt Count (150-450) k/uL MPV Neutrophils % % Lymphocytes % % Monocytes % % Eosinophils % % Basophils % % Neutrophils # (1.3-7.7) k/uL Lymphocytes # (1.0-4.8) k/uL Monocytes # (0-1.0) k/uL Eosinophils # (0-0.7) k/uL Basophils # (0-0.2) k/uL Hypochromasia Macrocytosis PT (10.0-12.5) sec INR (<1.2) APTT (22.0-30.0) sec Sodium 132 L (137-145) mmol/L Potassium 4.4 (3.5-5.1) mmol/L Chloride 102 (98-107) mmol/L Carbon Dioxide 24 (22-30) mmol/L Anion Gap 6 mmol/L BUN 24 H (7-17) mg/dL Creatinine 1.38 H (0.52-1.04) mg/dL Est GFR (CKD-EPI)AfAm 44 (>60 ml/min/1.73 sqM) Est GFR (CKD-EPI)NonAf 39 (>60 ml/min/1.73 sqM) Glucose 109 H (74-99) mg/dL Calcium 8.6 (8.4-10.2) mg/dL Total Bilirubin 1.1 (0.2-1.3) mg/dL AST 26 (14-36) U/L ALT 8 (4-34) U/L Alkaline Phosphatase 134 H (38-126) U/L Total Protein 6.3 (6.3-8.2) g/dL Albumin 3.2 L (3.5-5.0) g/dL Urine Color Urine Appearance (Clear) Urine pH (5.0-8.0) Ur Specific [place] (1.001-1.035) Urine Protein (Negative) Urine Glucose (UA) (Negative) Urine Ketones (Negative) Urine Blood (Negative) Urine Nitrite (Negative) Urine Bilirubin (Negative) Urine Urobilinogen (<2.0) mg/dL Ur Leukocyte Esterase (Negative) Urine RBC (0-5) /hpf Urine WBC (0-5) /hpf Ur Squamous Epith Cells (0-4) /hpf Urine Bacteria (None) /hpf Hyaline Casts (0-2) /lpf Urine Mucus (None) /hpf Urine Opiates Screen (NotDetected) Ur Oxycodone Screen (NotDetected) Urine Methadone Screen (NotDetected) Ur Barbiturates Screen (NotDetected) U Tricyclic Antidepress (NotDetected) Ur Phencyclidine Scrn (NotDetected) Ur Amphetamines Screen (NotDetected) U Methamphetamines Scrn (NotDetected) U Benzodiazepines Scrn (NotDetected) Urine Cocaine Screen (NotDetected) U Marijuana (THC) Screen (NotDetected) Disposition Clinical Impression: Dehydration Disposition: HOME SELF-CARE Condition: Stable Is patient prescribed a controlled substance at d/c from ED?: No Referrals: Jerri Hodgson DO [Primary Care Provider] - 1-2 days
[2024-01-13 13:54] LABS: Basophils % (A) 0 %; Eosinophils # (A) 0.3 k/uL (0-0.7); Eosinophils % (A) 4 %; HCT 31.1 % (34.0-46.0); HGB 9.8 gm/dL (11.4-16.0); Hypochromasia Slight; Lymphocytes # (A) 0.9 k/uL (1.0-4.8); Lymphocytes % (A) 12 %; MCH 31.7 pg (25.0-35.0); MCHC 31.7 g/dL (31.0-37.0); Macrocytosis Slight; Mean Platelet Volume 8.8; Monocytes # (A) 0.5 k/uL (0-1.0); Monocytes % (A) 7 %; Neutrophils # (A) 5.9 k/uL (1.3-7.7); Neutrophils % (A) 76 %; Platelet Count 184 k/uL (150-450); RBC 3.11 m/uL (3.80-5.40); RDW 14.7 % (11.5-15.5); WBC 7.8 k/uL (3.8-10.6)
[2024-01-13 14:04] LABS: ALT 8 U/L (4-34); AST 26 U/L (14-36); African American GFR (CKD) 44 (>60 ml/min/1.73 sqM); Albumin 3.2 g/dL (3.5-5.0); Alkaline Phosphatase 134 U/L (38-126); Anion Gap 6 mmol/L; Blood Urea Nitrogen 24 mg/dL (7-17); Calcium 8.6 mg/dL (8.4-10.2); Carbon Dioxide 24 mmol/L (22-30); Chloride 102 mmol/L (98-107); Glucose 109 mg/dL (74-99); Non-African American GFR(CKD) 39 (>60 ml/min/1.73 sqM); Potassium 4.4 mmol/L (3.5-5.1); Sodium 132 mmol/L (137-145); Total Bilirubin 1.1 mg/dL (0.2-1.3); Total Protein 6.3 g/dL (6.3-8.2)
[2024-01-13 14:18] LABS: INR 1.2 (<1.2); Prothrombin Time 13.1 sec (10.0-12.5)
--- NOTE | 2024-01-13 14:25 | XR ---
EXAMINATION TYPE: XR chest 1V portable DATE OF EXAM: 01/13/2024 2:19 PM COMPARISON: Prior chest radiograph, most recent dated 12/24/2023. CLINICAL INDICATION: Female, 73 years old with history of altered mental status; [facility] TECHNIQUE: XR chest 1V portable Frontal view of the chest. FINDINGS: Marked cardiomegaly. Median sternotomy wires. Mild vascular congestive changes. No sizable pleural effusion. No pneumothorax. No acute osseous abnormality. IMPRESSION: Marked cardiomegaly and mild pulmonary vascular congestion. [facility], , 01/13/2024 2:22 PM
[2024-01-13 14:27] LABS: Appearance,Urine Clear (Clear); Bacteria,Urine Rare /hpf; Bilirubin,Urine Negative (Negative); Blood,Urine Trace (Negative); Color,Urine Light Yellow; Glucose,Urine (UA) Negative (Negative); Hyaline Casts,Urine 3 /lpf (0-2); Ketones,Urine Negative (Negative); Leukocyte Esterase,Urine Negative (Negative); Mucus,Urine Rare /hpf; Nitrite,Urine Negative (Negative); Protein,Urine Negative (Negative); RBC,Urine 1 /hpf (0-5); Specific Gravity,Urine 1.008 (1.001-1.035); Squamous Epithelial Cell,Urine 1 /hpf (0-4); Urobilinogen,Urine <2.0 mg/dL (<2.0); WBC,Urine 1 /hpf (0-5)
[2024-01-13] MEDS: SODIUM CHLORIDE 0.9% 1,000 ML IV ONE (14:30)
[2024-01-13 14:32] LABS: Amphetamine Screen,Urine Not Detected (NotDetected); Benzodiazepines Screen,Urine Not Detected (NotDetected); Cocaine Screen,Urine Not Detected (NotDetected); Opiate Screen,Urine Detected (NotDetected); Phencyclidine Screen,Urine Not Detected (NotDetected); Tricyclic Antidepressant,Urine Not Detected (NotDetected); Urn Cannabinoid Scrn Not Detected (NotDetected)
[2024-01-13 14:33] LABS: Barbiturate Screen,Urine Not Detected (NotDetected); Methadone Screen, Urine Not Detected (NotDetected); Oxycodone Screen, Urine Not Detected (NotDetected)
[2024-01-13 14:34] LABS: Partial Thromboplastin Time 18.9 sec (22.0-30.0)
[2024-01-13 18:45] VITALS: BP 90/48; PULSE 86; TEMP 98
== END 2024-01-13 18:45 | disposition home or self-care (01) ==
LOC: EC 12:24
DX: E86.0 Dehydration (principal); Z88.5 Allergy status to narcotic agent; Z88.8 Allergy status to other drugs, medicaments and biological substances
CPT/HCPCS: 36415; 71045; 80053; 80306; 81001; 85025; 85610; 85730; 93005; 96360; 99285